=== PATIENT | female | born 1970 | race Caucasian/White ===

== ENCOUNTER 2019-08-27 23:27 | Inpatient (IN) ==
--- OUTSIDE RECORDS SUMMARY | 2019-08-27 23:31 | External Medical Summary | Continuity of Care Document ---
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 Refills: 0 Cetirizine HCl - 10 MG Oral Tablet; TAKE 1 TABLET DAILY. Refills: 0 Clopidogrel Bisulfate 75 MG Oral Tablet; TAKE 1 TABLET DAILY . Refills: 0 NovoLOG FlexPen 100 UNIT/ML Subcutaneous Solution Pen-injector; USE DIRECTED. Refills: 0 Lantus SoloStar 100 UNIT/ML Subcutaneous Solution Pen-injector; INJECT 40 UNIT Twice daily Refills: 0 Lisinopril 20 MG Oral Tablet; TAKE 1 TABLET DAILY DIRECTE D. Refills: 0 Toviaz 8 MG Oral Tablet Extended Release 24 Hour; Take 1 tablet daily YON Boudreaux Start: 13-Dec-2014 Quantity: 30 Refills: 6 Citalopram Hydrobromide 10 MG Oral Tablet; TAKE 1 TABLET MARGARITO LY. Refills: 0 Metoprolol Succinate ER 50 MG Oral Table t Extended Release 24 Hour; TAKE 1 TABLET DAILY. Refills: 0 Promethazine HCl - 25 MG Oral Tablet; TA KE 1 TABLET EVERY 6 HOURS NEEDED FOR NAUSEA. Refills: 0 Procedures Procedures not documented Immunizations Immunizations not documented Social History - Smoking Status Never smoked tobacco Plan of Treatment Planned Observations Planned Goals not documented Results No Known Results Results not documented
--- OUTSIDE RECORDS SUMMARY | 2019-08-27 23:31 | External Medical Summary | Continuity of Care Document ---
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 Refills: 0 Metoprolol Succinate ER 50 MG Oral Table t Extended Release 24 Hour; TAKE 1 TABLET DAILY. Refills: 0 Cetirizine HCl - 10 MG Oral Tablet; TAKE 1 TABLET DAILY. Refills: 0 Lisinopril 20 MG Oral Tablet; TAKE 1 TABLET DAILY DIRECTE D. Refills: 0 Lantus SoloStar 100 UNIT/ML Subcutaneous Solution Pen-injector; INJECT 40 UNIT Twice daily Refills: 0 NovoLOG FlexPen 100 UNIT/ML Subcutaneous Solution Pen-injector; USE DIRECTED. Refills: 0 Clopidogrel Bisulfate 75 MG Oral Tablet; TAKE 1 TABLET DAILY . Refills: 0 Atorvastatin Calcium 40 MG Oral Tablet; TAKE 1 TABLET DAILY. Refills: 0 [place]-3 Fish Oil 1000 MG Oral Capsule; TAKE 2 CAPSULE Daily Refills: 0 Toviaz 8 MG Oral Tablet Extended Release 24 Hour; Take 1 tablet daily YON Boudreaux Start: 13-Dec-2014 Quantity: 30 Refills: 6 Citalopram Hydrobromide 10 MG Oral Tablet; TAKE 1 TABLET MARGARITO LY. Refills: 0 Procedures Procedures not documented Immunizations Immunizations not documented Social History - Smoking Status Never smoked tobacco Plan of Treatment Planned Observations Planned Goals not documented Results No Known Results Results not documented
[2019-08-27] MEDS ORDERED: SODIUM CHLORIDE 0.9% 1000ML 1,000 ML IV ONE (23:54)
[2019-08-27] MEDS ORDERED: PIPERACILLIN/TAZOBACTAM 4.5 GM/120 ML BAG IV ONE (23:56)
[2019-08-27] MEDS ORDERED: PIPERACILL/TAZOBAC CONSULT ACTIVE PRN (23:56)
--- NOTE | 2019-08-28 00:13 | Emergency Department Note ---
History of Present Illness General Chief complaint: Urinary Symptoms Stated complaint: VAGINAL PAIN, REDNESS, PEEING CONSTANTLY History of Present Illness This 49-year-old presents to the ER complaining of altered mental status who had a stroke in 2014 and the is the primary caregiver Location: Generalized Quality: Confused Severity: Moderate Duration: Today Timing: This afternoon Context: Has not was concerned and brought her in Modifying factors: better with nothing; worse with nothing states that she has been urinating more and has redness to her vaginal region. He called the family doctor and was advised to put cream on that region. She became more confused and brought her here. Patient had a stroke in 2014 and has left-sided weakness. He states she is normally not confused. No recent antibiotics. She is diabetic. He denies fevers, vomiting, diarrhea, flulike illness. Home Medications Home Medications Medication Instructions Recorded Confirmed Type aspirin 81 mg PO DAILY 08/28/19 08/28/19 History atorvastatin 40 mg PO DAILY 08/28/19 08/28/19 History clopidogrel [Plavix] 75 mg PO DAILY 08/28/19 08/28/19 History fesoterodine [Toviaz] 8 mg PO DAILY 08/28/19 08/28/19 History insulin aspart U-100 [Novolog 0 unit SUBCUT ACHS 08/28/19 08/28/19 History Flexpen U-100 Insulin] insulin glargine [Lantus Solostar 40 unit SUBCUT BID 08/28/19 08/28/19 History U-100 Insulin] lisinopril 0 mg PO DAILY 08/28/19 08/28/19 History metformin 500 mg PO BID 08/28/19 08/28/19 History metoprolol succinate 50 mg PO DAILY 08/28/19 08/28/19 History pediatric multivitamin 2 tab PO DAILY 08/28/19 08/28/19 History Allergies Allergy/AdvReac Type Severity Reaction Status Date / Time No Known Allergies Allergy Verified 08/28/19 00:23 Past Med/Surg History Medical History 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) Surgical History History of cholecystectomy Social History Preferred Language: Panamanian Feels Safe at Home: Yes Smoking Status: Never smoker Review of Systems Unable to obtain secondary to altered mental status Physical Exam Vital Signs Vital Signs - 24 hr 08/27/19 23:31 08/28/19 01:30 08/28/19 01:32 Temperature 37.4 C 37.4 C Temperature Source Oral Rectal Pulse Rate 102 H Pulse Rate [Right] 86 Pulse Rate from SpO2 Sensor 99 H Pulse Rhythm [Right] Regular Pulse Strength [Right] Normal Respiratory Rate 20 16 Respiratory Effort / Characteristics Non-Labored Spontaneous Non-Labored Spontaneous Respiratory Depth Normal Normal Respiratory Pattern Regular Blood Pressure 108/55 L 113/88 Blood Pressure [Right Arm] 113/77 Blood Pressure Mean 72 103 Blood Pressure Mean [Right Arm] 89 Blood Pressure Position Sitting Blood Pressure Position [Right Arm] Lying Pulse Oximetry 99 96 96 Oxygen Delivery Method Room Air Room Air Sepsis Recent Fever Within 48 Hours Yes Sepsis Action Taken by Nursing No Action Required 08/28/19 01:36 08/28/19 03:56 Temperature Temperature Source Pulse Rate 96 H Pulse Rate [Right] Pulse Rate from SpO2 Sensor 82 Pulse Rhythm [Right] Pulse Strength [Right] Respiratory Rate 20 14 Respiratory Effort / Characteristics Respiratory Depth Respiratory Pattern Blood Pressure 100/65 Blood Pressure [Right Arm] Blood Pressure Mean 67 Blood Pressure Mean [Right Arm] Blood Pressure Position Blood Pressure Position [Right Arm] Pulse Oximetry 100 96 Oxygen Delivery Method Room Air Sepsis Recent Fever Within 48 Hours Sepsis Action Taken by Nursing VITALS: Vitals are noted on the nurse's note and reviewed by myself. Vital signs mildly tachycardic. GENERAL: White female confused appearing unable to follow commands with left-si ded weakness unchanged per family SKIN: Vaginal and perineum area and gluteal area erythematous and tender to palpation without palpable abscess, no crepitus, the rest of the skin was without rashes, erythema, edema, or bruising. There is no tenting of the skin. Capillary reflex less than 2 seconds. HEAD: Normocephalic atraumatic. EARS: External auditory canals clear, tympanic membranes pearly allen without erythema or effusion bilaterally. EYES: Pupils equal round and reactive to light and accommodation. Conjunctivae without injection, sclerae without icterus. Extraocular movements intact. NOSE: Patent, turbinates without inflammation or discharge. MOUTH: Mucous membranes mildly dry. Pharynx without erythema or exudate. Uvula midline. Airway patent. Tongue does not deviate. NECK: Supple without nuchal rigidity. No lymphadenopathy. No thyromegaly. Cervical spine is nontender. No JVD. HEART: Regular rate and rhythm LUNGS: Clear to auscultation bilaterally without wheezes, rales or rhonchi. No retractions or accessory muscle use. ABDOMEN: Positive bowel sounds x 4. Normal tympanic percussion. Soft, tender to palpation lower abdomen, without masses or organomegaly. Avery sign negative. No guarding or rebound tenderness. No CVA tenderness MUSCULOSKELETAL: No muscle atrophy, erythema, or edema noted. NEURO: Patient was alert but not oriented to person place and time. Unchanged left-sided weakness. Patient is unable to follow commands. She is speaking but not making sense. Course Administered Medications Sodium Chloride (Nss 1000ml) 1,000 mls @ 125 mls/hr IV .Q8H MART Stop: 09/27/19 03:29 Last Admin: 08/28/19 03:58 Dose: 125 mls/hr Documented by: [id number] Discontinued Medications Sodium Chloride (Nss 1000ml) 1,000 mls @ 999 mls/hr IV .Q1H1M ONE Stop: 08/28/19 00:54 Last Infusion: 08/28/19 02:10 Dose: 0 mls/hr Documented by: [id number] Admin: 08/28/19 01:07 Dose: 999 mls/hr Documented by: [id number] Piperacillin Sod/Tazobactam Sod (Zosyn) 4.5 gm in 120 mls @ 240 mls/hr IV NOW ONE Stop: 08/28/19 00:25 Last Infusion: 08/28/19 01:40 Dose: 0 mls/hr Documented by: [id number] Admin: 08/28/19 01:07 Dose: 240 mls/hr Documented by: [id number] Magnesium Sulfate/Dextrose (Magnesium Sulfate / D5w) 1 gm in 100 mls @ 100 mls/hr IV Q1H MART Stop: 08/28/19 02:59 Last Infusion: 08/28/19 03:57 Dose: 0 mls/hr Documented by: [id number] Admin: 08/28/19 02:55 Dose: 100 mls/hr Documented by: [id number] Infusion: 05/15/20 02:55 Dose: 0 mls/hr Documented by: [id number] Admin: 08/28/19 01:40 Dose: 100 mls/hr Documented by: [id number] Nystatin (Nystatin) 1 appln EXT NOW STA Stop: 08/28/19 01:27 Last Admin: 08/28/19 01:40 Dose: 1 appln Documented by: [id number] Medical Decision Making Medical Records Attestation: I reviewed the patient's medical records. Home Medications Current Medication List: was personally reviewed by me Laboratory Data Attestation: I reviewed the patient's lab results. Result diagrams: 08/28/19 00:00 08/28/19 00:00 Lab Results 08/28/19 08/28/19 08/28/19 Range/Units 00:00 00:00 00:00 WBC 19.20 H (4.8-10.8) K/uL RBC 5.00 (4.2-5.4) M/uL Hgb 15.8 (12.0-16.0) g/dL POC Hgb (12.0-16.0) g/dl Hct 44.3 (37-47) % POC Hct (37-47) % MCV 88.6 (80-100) fL MCH 31.6 (25-34) pg MCHC 35.7 (32-36) g/dL RDW Std Deviation 41.3 (36.4-46.3) fL RDW Coeff of Travis 12.9 (11.5-14.5) % Plt Count 363 (130-400) K/uL MPV 9.7 (7.4-10.4) fL Immature Gran % (Auto) 0.3 % Neut % (Auto) 63.3 % Lymph % (Auto) 28.3 % [place] % (Auto) 7.2 % Eos % (Auto) 0.6 % Baso % (Auto) 0.3 % Immature Gran # (Auto) 0.06 H (0.00-0.02) K/uL Neut # (Auto) 12.16 H (1.4-6.5) K/uL Lymph # (Auto) 5.43 H (1.2-3.4) K/uL [place] # (Auto) 1.38 H (0.11-0.59) K/uL Eos # (Auto) 0.11 (0-0.5) K/uL Baso # (Auto) 0.06 (0-0.2) K/uL Tear Drop Cells 1+ PT 10.8 (9.0-12.0) Seconds INR 1.0 (0.9-1.1) APTT 26.5 (21.0-31.0) Seconds PTT Ratio 0.9 POC Sodium (135-144) mmol/L Sodium 136 (136-145) mmol/L POC Potassium (3.3-5.0) mmol/L Potassium 4.3 (3.5-5.1) mmol/L POC Chloride (101-112) mmol/L Chloride 104 (98-107) mmol/L Carbon Dioxide 21 (21-32) mmol/L POC Total CO2 (24-31) mmol/L Anion Gap 11.0 (3-11) POC Anion Gap (16-25) mmol/L POC BUN (7-18) mg/dl BUN 9 (7-18) mg/dl Creatinine 0.80 (0.6-1.2) mg/dl POC Creatinine (0.6-1.3) mg/dl Est Cr Clr Drug Dosing 78.0 ml/min Est GFR ( Amer) 100.3 Est GFR (Non-Af Amer) 86.6 BUN/Creatinine Ratio 10.8 (10-20) Glucose 250 H (70-99) mg/dl POC Glucose (other) (70-99) mg/dl POC Lactic Acid Baljeet (0.90-1.70) mmol/L Lactate (0.4-2.0) mmol/L Calcium 9.8 (8.5-10.1) mg/dl POC Ioniz Calcium Sesar (1.12-1.32) mmol/l Magnesium 1.6 L (1.8-2.4) mg/dl Total Bilirubin 0.5 (0.2-1) mg/dl AST 10 L (15-37) U/L ALT 17 (12-78) U/L Alkaline Phosphatase 149 H (45-117) U/L Total Creatine Kinase 44 (26-192) U/L Troponin I < 0.015 (0-0.045) ng/ml Total Protein 8.8 H (6.4-8.2) gm/dl Albumin 3.9 (3.4-5.0) gm/dl Globulin 4.9 H (2.5-4.0) gm/dl Albumin/Globulin Ratio 0.8 L (0.9-2) TSH 0.843 (0.300-4.500) uIu/ml Urine Color Urine Appearance (Clear) Urine pH (4.5-7.5) Ur Specific [place] (1.000-1.030) Urine Protein (Negative) Urine Glucose (UA) (Negative) Urine Ketones (Negative) Urine Blood (Negative) Urine Nitrite (Negative) Urine Bilirubin (Negative) Urine Urobilinogen (Negative) Ur Leukocyte Esterase (Negative) Urine WBC (Auto) (0-5) /hpf Urine RBC (Auto) (0-4) /hpf U Hyaline Cast (Auto) (0-5) /lpf U Epithel Cells (Auto) (0-5) /lpf Urine Bacteria (Auto) (Negative) Ur Renal Epithelial Cell (0-5) /lpf 08/28/19 08/28/19 08/28/19 Range/Units 00:06 00:07 00:27 WBC (4.8-10.8) K/uL RBC (4.2-5.4) M/uL Hgb (12.0-16.0) g/dL POC Hgb 16.0 (12.0-16.0) g/dl Hct (37-47) % POC Hct 47 (37-47) % MCV (80-100) fL MCH (25-34) pg MCHC (32-36) g/dL RDW Std Deviation (36.4-46.3) fL RDW Coeff of Travis (11.5-14.5) % Plt Count (130-400) K/uL MPV (7.4-10.4) fL Immature Gran % (Auto) % Neut % (Auto) % Lymph % (Auto) % [place] % (Auto) % Eos % (Auto) % Baso % (Auto) % Immature Gran # (Auto) (0.00-0.02) K/uL Neut # (Auto) (1.4-6.5) K/uL Lymph # (Auto) (1.2-3.4) K/uL [place] # (Auto) (0.11-0.59) K/uL Eos # (Auto) (0-0.5) K/uL Baso # (Auto) (0-0.2) K/uL Tear Drop Cells PT (9.0-12.0) Seconds INR (0.9-1.1) APTT (21.0-31.0) Seconds PTT Ratio POC Sodium 136 (135-144) mmol/L Sodium (136-145) mmol/L POC Potassium 4.1 (3.3-5.0) mmol/L Potassium (3.5-5.1) mmol/L POC Chloride 101 (101-112) mmol/L Chloride (98-107) mmol/L Carbon Dioxide (21-32) mmol/L POC Total CO2 24 (24-31) mmol/L Anion Gap (3-11) POC Anion Gap 17.0 (16-25) mmol/L POC BUN 9 (7-18) mg/dl BUN (7-18) mg/dl Creatinine (0.6-1.2) mg/dl POC Creatinine 0.5 L (0.6-1.3) mg/dl Est Cr Clr Drug Dosing ml/min Est GFR ( Amer) Est GFR (Non-Af Amer) BUN/Creatinine Ratio (10-20) Glucose (70-99) mg/dl POC Glucose (other) 262 H (70-99) mg/dl POC Lactic Acid Baljeet 2.02 H (0.90-1.70) mmol/L Lactate (0.4-2.0) mmol/L Calcium (8.5-10.1) mg/dl POC Ioniz Calcium Sesar 1.29 (1.12-1.32) mmol/l Magnesium (1.8-2.4) mg/dl Total Bilirubin (0.2-1) mg/dl AST (15-37) U/L ALT (12-78) U/L Alkaline Phosphatase (45-117) U/L Total Creatine Kinase (26-192) U/L Troponin I (0-0.045) ng/ml Total Protein (6.4-8.2) gm/dl Albumin (3.4-5.0) gm/dl Globulin (2.5-4.0) gm/dl Albumin/Globulin Ratio (0.9-2) TSH (0.300-4.500) uIu/ml Urine Color Dark Yellow Urine Appearance Cloudy A (Clear) Urine pH 5.0 (4.5-7.5) Ur Specific [place] 1.041 H (1.000-1.030) Urine Protein 1+ H (Negative) Urine Glucose (UA) 3+ H (Negative) Urine Ketones Trace H (Negative) Urine Blood 1+ H (Negative) Urine Nitrite Negative (Negative) Urine Bilirubin Negative (Negative) Urine Urobilinogen Negative (Negative) Ur Leukocyte Esterase Negative (Negative) Urine WBC (Auto) 10-30 H (0-5) /hpf Urine RBC (Auto) 5-10 H (0-4) /hpf U Hyaline Cast (Auto) 1-5 (0-5) /lpf U Epithel Cells (Auto) >30 H (0-5) /lpf Urine Bacteria (Auto) 1+ H (Negative) Ur Renal Epithelial Cell 0-5 (0-5) /lpf 08/28/19 Range/Units 02:21 WBC (4.8-10.8) K/uL RBC (4.2-5.4) M/uL Hgb (12.0-16.0) g/dL POC Hgb (12.0-16.0) g/dl Hct (37-47) % POC Hct (37-47) % MCV (80-100) fL MCH (25-34) pg MCHC (32-36) g/dL RDW Std Deviation (36.4-46.3) fL RDW Coeff of Travis (11.5-14.5) % Plt Count (130-400) K/uL MPV (7.4-10.4) fL Immature Gran % (Auto) % Neut % (Auto) % Lymph % (Auto) % [place] % (Auto) % Eos % (Auto) % Baso % (Auto) % Immature Gran # (Auto) (0.00-0.02) K/uL Neut # (Auto) (1.4-6.5) K/uL Lymph # (Auto) (1.2-3.4) K/uL [place] # (Auto) (0.11-0.59) K/uL Eos # (Auto) (0-0.5) K/uL Baso # (Auto) (0-0.2) K/uL Tear Drop Cells PT (9.0-12.0) Seconds INR (0.9-1.1) APTT (21.0-31.0) Seconds PTT Ratio POC Sodium (135-144) mmol/L Sodium (136-145) mmol/L POC Potassium (3.3-5.0) mmol/L Potassium (3.5-5.1) mmol/L POC Chloride (101-112) mmol/L Chloride (98-107) mmol/L Carbon Dioxide (21-32) mmol/L POC Total CO2 (24-31) mmol/L Anion Gap (3-11) POC Anion Gap (16-25) mmol/L POC BUN (7-18) mg/dl BUN (7-18) mg/dl Creatinine (0.6-1.2) mg/dl POC Creatinine (0.6-1.3) mg/dl Est Cr Clr Drug Dosing ml/min Est GFR ( Amer) Est GFR (Non-Af Amer) BUN/Creatinine Ratio (10-20) Glucose (70-99) mg/dl POC Glucose (other) (70-99) mg/dl POC Lactic Acid Baljeet (0.90-1.70) mmol/L Lactate 1.6 (0.4-2.0) mmol/L Calcium (8.5-10.1) mg/dl POC Ioniz Calcium Sesar (1.12-1.32) mmol/l Magnesium (1.8-2.4) mg/dl Total Bilirubin (0.2-1) mg/dl AST (15-37) U/L ALT (12-78) U/L Alkaline Phosphatase (45-117) U/L Total Creatine Kinase (26-192) U/L Troponin I (0-0.045) ng/ml Total Protein (6.4-8.2) gm/dl Albumin (3.4-5.0) gm/dl Globulin (2.5-4.0) gm/dl Albumin/Globulin Ratio (0.9-2) TSH (0.300-4.500) uIu/ml Urine Color Urine Appearance (Clear) Urine pH (4.5-7.5) Ur Specific [place] (1.000-1.030) Urine Protein (Negative) Urine Glucose (UA) (Negative) Urine Ketones (Negative) Urine Blood (Negative) Urine Nitrite (Negative) Urine Bilirubin (Negative) Urine Urobilinogen (Negative) Ur Leukocyte Esterase (Negative) Urine WBC (Auto) (0-5) /hpf Urine RBC (Auto) (0-4) /hpf U Hyaline Cast (Auto) (0-5) /lpf U Epithel Cells (Auto) (0-5) /lpf Urine Bacteria (Auto) (Negative) Ur Renal Epithelial Cell (0-5) /lpf Imaging Data Attestation: I personally reviewed and interpreted this imaging study as follows: Blood Pressure Blood Pressure Findings: Normal blood pressure MDM Narrative Prior records/ancillary studies reviewed and summarized above. Nursing notes reviewed. Additional history obtained from family. The patient's history was concerning for altered mental status. Differential diagnosis: Etiologies such as metabolic, infection, hypoglycemia, electrolyte abnormalities, cardiac sources, intracerebral event, toxicologic, neurologic, as well as others were entertained. Physical examination: As above. ER treatment provided: IV Lock IV fluids, Zosyn An order was placed for continuous cardiac monitoring. The monitor shows a rate of 60-1 10 with a normal sinus rhythm. On reassessment the patients mental status improved. Diagnostics interpretation by me: ECG: Ordered for altered mental status EKG: Normal sinus, T wave inversion in lead III and aVF, rate of 109, Q wave in lead III, impression sinus tachycardia with T wave changes in inferior leads interpreted by myself. EKG compared to prior EKG from 2015 with no changes noted. I think arrhythmia is unlikely. EKG shows normal sinus rhythm with no interval abnormalities such as QT prolongation or WPW. There are no findings to suggest Brugada syndrome. Cardiac monitoring in the emergency department reveals no tachycardic or bradycardic dysrhythmia. Hypertrophic cardiomyopathy was consider ed but there are no clear historical elements pointing toward this. EKG is not suggestive. The QRS voltage is not extremely large and there are no suggestive Q waves. The labs revealed leukocytosis, urine concerning for infection and sent for culture Blood cultures pending Elevated lactic Imaging studies: CT HEAD: Study is degraded by motion. No gross intracranial hemorrhage. Old right MCA territory infarct. Radiologist: Dwaine Shaffer M.D. Chest x-ray with no acute consolidation, pneumothorax or free air per my interpretation CT ABDOMEN & PELVIS Without Contrast: No evidence of colitis or bowel obstruction. Appendix not identified. Duodenal diverticulum. Cholecystectomy. Bulbous left adrenal gland. No renal calculi or obstructive changes. Radiologist: Dwaine Shaffer M.D. Given the above diagnostic work-up and treatment, this episode appears to be consistent with perineum infection, UTI and altered mental status. Further treatment will be required. Patient is given antibiotics, IV fluids and magnesium. Medicine was consulted. She will be admitted. Family is agreeable. Her mentation was improving after being treated as above. Consultation: A consultation was placed with Dr. Xiong, hospitalist. The case was discussed and diagnostics were reviewed. The patient was evaluated in the ER for further treatment. The chart was completed utilizing [employer] Speech voice recognition software. Grammatical errors, random word insertions, pronoun errors, and incomplete sentences are an occassional consequence of this system due to software limitations, ambient noise, and hardware issues. Any formal questions or concerns about the content, text, or information contained within the body of this dictation should be directly addressed to the physician criminal legal assistant for clarification. Impression & Plan Sepsis, UTI (urinary tract infection), AMS (altered mental status), Cellulitis of perineum, Candidiasis of genitalia in female Discharge Plan Visit Data Chief Complaint: Urinary Symptoms Stated Complaint: VAGINAL PAIN, REDNESS, PEEING CONSTANTLY ED Provider: Edita Epstein ED Midlevel Provider: Zeenat Zamorano Discharge Problem: Sepsis, UTI (urinary tract infection), AMS (altered mental status), Cellulitis of perineum, Candidiasis of genitalia in female Patient Disposition: Admitted As Inpatient Condition: Fair Forms Stand Alone Forms: [facility] Prescriptions Prescriptions: No Action aspirin 81 mg Tablet,Delayed Release (Dr/Ec) 81 mg PO DAILY RF: 0 atorvastatin 40 mg Tablet 40 mg PO DAILY RF: 0 clopidogrel [Plavix] 75 mg Tablet 75 mg PO DAILY RF: 0 insulin aspart U-100 [Novolog Flexpen U-100 Insulin] 100 unit/mL (3 mL) Insulin Pen 0 unit SUBCUT ACHS RF: 0 Lantus Solostar U-100 Insulin 100 unit/mL (3 mL) Insulin Pen 40 unit SUBCUT BID RF: 0 lisinopril 20 mg Tablet 0 mg PO DAILY RF: 0 metformin 500 mg Tablet 500 mg PO BID RF: 0 metoprolol succinate 50 mg Tablet Extended Release 24 Hr 50 mg PO DAILY RF: 0 pediatric multivitamin Tablet,Chewable 2 tab PO DAILY RF: 0 Toviaz 8 mg Tablet Extended Release 24 Hr 8 mg PO DAILY RF: 0 Referrals Referrals: Paty Buenrostro CRNP [Primary Care Provider] - Discharge Problem: Sepsis Qualifiers: Sepsis type: sepsis due to unspecified organism Sepsis acute organ dysfunction status: unspecified Qualified Code(s): A41.9 - Sepsis, unspecified organism
[2019-08-28 00:18] LABS: iSTAT Creatinine 0.5 mg/dl (0.6-1.3); iSTAT Ionized Calcium 1.29 mmol/l (1.12-1.32); iSTAT Potassium 4.1 mmol/L (3.3-5.0)
[2019-08-28 00:32] LABS: Hematocrit (blood only) 44.3 % (37-47); Hemoglobin 15.8 g/dL (12.0-16.0); Mean Corpuscular Hemoglobin 31.6 pg (25-34); Mean Corpuscular Hgb Conc 35.7 g/dL (32-36); Mean Corpuscular Volume 88.6 fL (80-100); Mean Platelet Volume 9.7 fL (7.4-10.4); Platelet Count 363 K/uL (130-400); RDW Coefficient of Variation 12.9 % (11.5-14.5); RDW Standard Deviation 41.3 fL (36.4-46.3)
[2019-08-28 00:39] LABS: Appearance Urine Cloudy (Clear); Bacteria Urine Automated 1+ (Negative); Bilirubin Urine Negative (Negative); Blood Urine 1+ (Negative); Color Urine Dark Yellow; Epithelial Cell Urine Auto >30 /lpf (0-5); Glucose Urine UA 3+ (Negative); Ketones Urine Trace (Negative); Leukocyte Esterase Urine Negative (Negative); Nitrite Urine Negative (Negative); Protein Urine 1+ (Negative); Specific Gravity Urine 1.041 (1.000-1.030); Urobilinogen Urine Negative (Negative)
[2019-08-28 00:50] LABS: Partial Thromboplastin Ratio 0.9; Partial Thromboplastin Time 26.5 Seconds (21.0-31.0); Prothrombin Time 10.8 Seconds (9.0-12.0)
[2019-08-28 00:59] LABS: Alanine Aminotransferase 17 U/L (12-78); Albumin Level 3.9 gm/dl (3.4-5.0); Aspartate Aminotransferase 10 U/L (15-37); BUN Creatinine Ratio 10.8 (10-20); Blood Urea Nitrogen 9 mg/dl (7-18); Calcium 9.8 mg/dl (8.5-10.1); Carbon Dioxide 21 mmol/L (21-32); Chloride 104 mmol/L (98-107); Est GFR (African American) 100.3; Est GFR (Non-African American) 86.6; Glucose 250 mg/dl (70-99); Magnesium 1.6 mg/dl (1.8-2.4); Potassium 4.3 mmol/L (3.5-5.1); Sodium 136 mmol/L (136-145)
[2019-08-28 01:00] LABS: Renal Epithelial Cells Urine 0-5 /lpf (0-5)
[2019-08-28 01:06] LABS: Albumin Globulin Ratio 0.8 (0.9-2); Alkaline Phosphatase 149 U/L (45-117); Bilirubin,Total 0.5 mg/dl (0.2-1); Creatine Kinase 44 U/L (26-192); Globulin 4.9 gm/dl (2.5-4.0); Thyroid Stimulating Hormone 0.843 uIu/ml (0.300-4.500); Total Protein 8.8 gm/dl (6.4-8.2); Troponin I < 0.015 ng/ml (0-0.045)
[2019-08-28 01:18] LABS: Basophils # (auto) 0.06 K/uL (0-0.2); Basophils % (auto) 0.3 %; Eosinophils # (auto) 0.11 K/uL (0-0.5); Eosinophils % (auto) 0.6 %; Immature Granulocytes # (auto) 0.06 K/uL (0.00-0.02); Immature Granulocytes % (auto) 0.3 %; Lymphocytes # (auto) 5.43 K/uL (1.2-3.4); Lymphocytes % (auto) 28.3 %; Monocytes # (auto) 1.38 K/uL (0.11-0.59); Monocytes % (auto) 7.2 %; Neutrophils # (auto) 12.16 K/uL (1.4-6.5); Neutrophils % (auto) 63.3 %; Tear Drop Cells 1+
[2019-08-28] MEDS ORDERED: NYSTATIN CR 15 GM TUBE EXT STA (01:26)
[2019-08-28] MEDS: MAGNESIUM SULFATE / D5W 1 GM/100 ML BAG IV SCH ×2 (01:40→02:55)
--- NOTE | 2019-08-28 02:09 | History & Physical Report ---
Date of Service August 28, 2019 Assessment & Plan (1) Right middle cerebral artery stroke: 49-year-old with a history of MCA stroke admitted for sepsis secondary to UTI and cellulitis of perineum. 1. Sepsis secondary to UTI/cystitis White blood cell count elevated to 19.2 with a lactic acid of 2.02 Initially hypotensive and tachycardic which resolved after patient received 1 L normal saline bolus and Zosyn initiated. UA significant for cloudy urine with increased specific gravity, presence of protein, 3+ glucose, trace ketones, 1+ blood. Urine negative for nitrites and leukocyte Estrace. Positive for 10-30 white blood cells and 5-10 red blood cells as well as epithelial cells and 1+ bacteria. -Patient lives at home and has not been in the hospital recently, is low risk for hospital acquired infections or MRSA. Maintenance fluids running with IV cefazolin to treat cellulitis Blood cultures and urine culture pending 2. Cellulitis of perineum Nystatin cream ordered for topical application Patient is incontinent, may help to cath or do frequent straight caths until patient is more aware of her surroundings to reduce irritation from urine. 3. Hypo-magnesiumia -Initially 1.8, repleted with 2 bags in the emergency department. Repeat mag level in the a.m. 4. History of right MCA stroke Continued aspirin and Plavix from home regimen Continue home metoprolol 50 daily and atorvastatin 40 daily. 5. Diabetes type 2 40 units subcu insulin glargine twice daily, 500 metformin twice daily Sliding scale insulin with mealtime DVT ppx: lovenox FEN/GI: normal diet, IV NS maintenance Code status: FUll Code Dispo: Med surg with tele (2) AMS (altered mental status): (3) UTI (urinary tract infection): (4) Sepsis: (5) Cellulitis of perineum: History of Present Illness 49-year-old female with a past medical history of a right MCA stroke 5 years ago presenting to the emergency department today for altered mental status, confusion, perineal itching. Secondary to the stroke patient is unable to move the entire left side of her body and has diminished conversation capabilities. History mostly taken from who was in the room. Per patient started having genital itching and complains of needing to urinate more frequently approximately 3 days ago. After talking to a telemetry nurse and trying Monistat cream he noticed today that the itching had not improved and she was increasingly scratching her genital region complaining of both need to frequently urinate and pain with urination. He states she has also been more somnolent and tired over the last day or so and has not been acting as her usual self. She has also been increasingly forgetful and has had trouble remembering longer term details. says otherwise she has been eating and drinking appropriately and no other behaviors have changed but something seems off about her. Patient lives at home with her and is taken care of by him as well as her son and [id number]. ED course: Patient was tachycardic and hypotensive upon arrival and received 1 L normal saline fluid bolus. Initial lab work revealed hypo-magnesiumia and she received 1 of 2 bags of magnesium for repletion in the emergency department. CT scan of head noncontrast showed no new cerebral damage or acute stroke. CT abdomen pelvis without contrast did not show any diverticulitis, abscess, small bowel obstruction. Primary Care Provider: YON Singh Allergies Allergy/AdvReac Type Severity Reaction Status Date / Time No Known Allergies Allergy Verified 08/28/19 00:23 Home Medications Home Medications Medication Instructions Recorded Confirmed Type aspirin 81 mg PO DAILY 08/28/19 08/28/19 History atorvastatin 40 mg PO DAILY 08/28/19 08/28/19 History clopidogrel [Plavix] 75 mg PO DAILY 08/28/19 08/28/19 History fesoterodine [Toviaz] 8 mg PO DAILY 08/28/19 08/28/19 History insulin aspart U-100 [Novolog 0 unit SUBCUT ACHS 08/28/19 08/28/19 History Flexpen U-100 Insulin] insulin glargine [Lantus Solostar 40 unit SUBCUT BID 08/28/19 08/28/19 History U-100 Insulin] lisinopril 0 mg PO DAILY 08/28/19 08/28/19 History metformin 500 mg PO BID 08/28/19 08/28/19 History metoprolol succinate 50 mg PO DAILY 08/28/19 08/28/19 History pediatric multivitamin 2 tab PO DAILY 08/28/19 08/28/19 History Past Med/Surg History Medical History 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) Surgical History History of cholecystectomy Social History Preferred Language: Bengali Beliefs That Will Affect Care: None Current Living Situation: Spouse Feels Safe at Home: Yes Safety Concerns: Feels Safe At This Time Smoking Status: Unknown if ever smoked Hx Alcohol Use: No Hx Substance Use: No Review of Systems Review of Systems: Unobtainable due to cognitive status Physical Exam Constitutional: + thin, + altered mental status, + behavioral limitations and + physical limitations Eyes: PERRL, conjunctivae normal, anicteric sclerae Respiratory: normal respiratory effort, lungs clear to auscultation no respiratory distress and does not use accessory muscles Auscultation: no crackles, no rhonchi and no wheezes Cardiovascular: Rate/Rhythm: regular rate and + tachycardic Heart Sounds: no gallop, no murmur and no cardiac rub Extremities: no calf tenderness and no pedal edema Gastrointestinal (Abdomen): Soft, nondistended, normal bowel sounds, tenderness to suprapubic region but otherwise nontender. Results & Data Results & Data ([facility]) Vital Signs (Past 12 Hours) Vital Signs Temp Pulse Pulse Resp BP BP Pulse Ox 08/28/19 01:36 96 H 20 100 08/28/19 01:32 37.4 C 86 16 113/77 96 08/27/19 23:31 37.4 C 102 H 20 108/55 L 99 Laboratory Results WBC 19.20 K/uL (4.8-10.8) H 08/28/19 00:00 RBC 5.00 M/uL (4.2-5.4) 08/28/19 00:00 Hgb 15.8 g/dL (12.0-16.0) 08/28/19 00:00 POC Hgb 16.0 g/dl (12.0-16.0) 08/28/19 00:06 Hct 44.3 % (37-47) 08/28/19 00:00 POC Hct 47 % (37-47) 08/28/19 00:06 MCV 88.6 fL (80-100) 08/28/19 00:00 MCH 31.6 pg (25-34) 08/28/19 00:00 MCHC 35.7 g/dL (32-36) 08/28/19 00:00 RDW Std Deviation 41.3 fL (36.4-46.3) 08/28/19 00:00 RDW Coeff of Travis 12.9 % (11.5-14.5) 08/28/19 00:00 Plt Count 363 K/uL (130-400) 08/28/19 00:00 MPV 9.7 fL (7.4-10.4) 08/28/19 00:00 Immature Gran % (Auto) 0.3 % 08/28/19 00:00 Neut % (Auto) 63.3 % 08/28/19 00:00 Lymph % (Auto) 28.3 % 08/28/19 00:00 [place] % (Auto) 7.2 % 08/28/19 00:00 Eos % (Auto) 0.6 % 08/28/19 00:00 Baso % (Auto) 0.3 % 08/28/19 00:00 Immature Gran # (Auto) 0.06 K/uL (0.00-0.02) H 08/28/19 00:00 Neut # (Auto) 12.16 K/uL (1.4-6.5) H 08/28/19 00:00 Lymph # (Auto) 5.43 K/uL (1.2-3.4) H 08/28/19 00:00 [place] # (Auto) 1.38 K/uL (0.11-0.59) H 08/28/19 00:00 Eos # (Auto) 0.11 K/uL (0-0.5) 08/28/19 00:00 Baso # (Auto) 0.06 K/uL (0-0.2) 08/28/19 00:00 Tear Drop Cells 1+ 08/28/19 00:00 PT 10.8 Seconds (9.0-12.0) 08/28/19 00:00 INR 1.0 (0.9-1.1) 08/28/19 00:00 APTT 26.5 Seconds (21.0-31.0) 08/28/19 00:00 PTT Ratio 0.9 08/28/19 00:00 POC Sodium 136 mmol/L (135-144) 08/28/19 00:06 Sodium 136 mmol/L (136-145) 08/28/19 00:00 POC Potassium 4.1 mmol/L (3.3-5.0) 08/28/19 00:06 Potassium 4.3 mmol/L (3.5-5.1) 08/28/19 00:00 POC Chloride 101 mmol/L (101-112) 08/28/19 00:06 Chloride 104 mmol/L (98-107) 08/28/19 00:00 Carbon Dioxide 21 mmol/L (21-32) 08/28/19 00:00 POC Total CO2 24 mmol/L (24-31) 08/28/19 00:06 Anion Gap 11.0 (3-11) 08/28/19 00:00 POC Anion Gap 17.0 mmol/L (16-25) 08/28/19 00:06 POC BUN 9 mg/dl (7-18) 08/28/19 00:06 BUN 9 mg/dl (7-18) 08/28/19 00:00 Creatinine 0.80 mg/dl (0.6-1.2) 08/28/19 00:00 POC Creatinine 0.5 mg/dl (0.6-1.3) L 08/28/19 00:06 Est Cr Clr Drug Dosing 78.0 ml/min 08/28/19 00:00 Est GFR ( Amer) 100.3 08/28/19 00:00 Est GFR (Non-Af Amer) 86.6 08/28/19 00:00 BUN/Creatinine Ratio 10.8 (10-20) 08/28/19 00:00 Glucose 250 mg/dl (70-99) H 08/28/19 00:00 POC Glucose (other) 262 mg/dl (70-99) H 08/28/19 00:06 POC Lactic Acid Baljeet 2.02 mmol/L (0.90-1.70) H 08/28/19 00:27 Lactate 1.6 mmol/L (0.4-2.0) 08/28/19 02:21 Calcium 9.8 mg/dl (8.5-10.1) 08/28/19 00:00 POC Ioniz Calcium Sesar 1.29 mmol/l (1.12-1.32) 08/28/19 00:06 Magnesium 1.6 mg/dl (1.8-2.4) L 08/28/19 00:00 Total Bilirubin 0.5 mg/dl (0.2-1) 08/28/19 00:00 AST 10 U/L (15-37) L 08/28/19 00:00 ALT 17 U/L (12-78) 08/28/19 00:00 Alkaline Phosphatase 149 U/L (45-117) H 08/28/19 00:00 Total Creatine Kinase 44 U/L (26-192) 08/28/19 00:00 Troponin I < 0.015 ng/ml (0-0.045) 08/28/19 00:00 Total Protein 8.8 gm/dl (6.4-8.2) H 08/28/19 00:00 Albumin 3.9 gm/dl (3.4-5.0) 08/28/19 00:00 Globulin 4.9 gm/dl (2.5-4.0) H 08/28/19 00:00 Albumin/Globulin Ratio 0.8 (0.9-2) L 08/28/19 00:00 TSH 0.843 uIu/ml (0.300-4.500) 08/28/19 00:00 Urine Color Dark Yellow 08/28/19 00:07 Urine Appearance Cloudy (Clear) A 08/28/19 00:07 Urine pH 5.0 (4.5-7.5) 08/28/19 00:07 Ur Specific [place] 1.041 (1.000-1.030) H 08/28/19 00:07 Urine Protein 1+ (Negative) H 08/28/19 00:07 Urine Glucose (UA) 3+ (Negative) H 08/28/19 00:07 Urine Ketones Trace (Negative) H 08/28/19 00:07 Urine Blood 1+ (Negative) H 08/28/19 00:07 Urine Nitrite Negative (Negative) 08/28/19 00:07 Urine Bilirubin Negative (Negative) 08/28/19 00:07 Urine Urobilinogen Negative (Negative) 08/28/19 00:07 Ur Leukocyte Esterase Negative (Negative) 08/28/19 00:07 Urine WBC (Auto) 10-30 /hpf (0-5) H 08/28/19 00:07 Urine RBC (Auto) 5-10 /hpf (0-4) H 08/28/19 00:07 U Hyaline Cast (Auto) 1-5 /lpf (0-5) 08/28/19 00:07 U Epithel Cells (Auto) >30 /lpf (0-5) H 08/28/19 00:07 Urine Bacteria (Auto) 1+ (Negative) H 08/28/19 00:07 Ur Renal Epithelial Cell 0-5 /lpf (0-5) 08/28/19 00:07 Supervising Physician Co-Signing Physician Notes Attending addendum: I have physically seen this patient, have supervised the medical residents activities, and agree with the H&P unless as otherwise noted. Assessment and Plan: Sepsis due to urinary tract infection/perineal cellulitis- WBC 19.2. Lactic acid 2.02, with repeat pending. Hypotension upon presentation, responded to IV fluid rehydration. Continue Zosyn IV. Follow urine culture and sensitivity. Follow blood cultures. Nystatin cream topically applied to perineal area 3 times daily. Right MCA stroke with residual- Continue aspirin, clopidogrel, metoprolol and atorvastatin. Diabetes mellitus- Hold metformin. Reduce glargine in half dosing. Patient Accu-Cheks before meals and at bedtime with NovoLog coverage per scale. Remainder of orders and notations as noted. Resident Activity Tracking Resident Involvement: Resident Care Provided Care Provided: Adult Hospital Medicine (1) Sepsis Sepsis acute organ dysfunction status: unspecified Sepsis type: sepsis due to unspecified organism Qualified Code(s): A41.9 - Sepsis, unspecified organism
[2019-08-28] MEDS: SODIUM CHLORIDE 0.9% 1000ML 1,000 ML IV SCH ×2 (03:58→12:13)
[2019-08-28] MEDS ORDERED: GLUCOSE 10 TABS/TUBE PO PRN (06:32)
[2019-08-28] MEDS ORDERED: ONDANSETRON INJ 2 MG/ML 2 ML VIAL IV PRN (06:32)
[2019-08-28] MEDS ORDERED: CARBOHYDRATES FOR HYPOGLYCEMIA PO PRN (06:32)
[2019-08-28] MEDS ORDERED: PIPERACILL/TAZOBAC CONSULT ACTIVE PRN (06:32)
[2019-08-28] MEDS ORDERED: DEXTROSE 50% 50 ML SYRINGE IV PRN (06:32)
[2019-08-28] MEDS ORDERED: GLUCOSE 40% GEL 15 GM TUBE PO PRN (06:32)
[2019-08-28] MEDS ORDERED: GLUCAGON FOR INJ 1 MG VIAL SQ PRN (06:32)
--- NOTE | 2019-08-28 06:36 | CT Scan Report ---
CT head/brain wo con CLINICAL HISTORY: 49 years-old Female with ams. Acutely altered mental status TECHNIQUE: Multiple axial CT images of the head were obtained without contrast. A dose lowering tech nique was utilized adhering to the principles of ALARA. COMPARISON: CTA of the head 11/07/2014, brain MRI 11/06/2014 FINDINGS: Study is markedly motion degraded. Encephalomalacia from remote MCA territory infarct. No acute intra cranial hemorrhage, midline shift, intracranial mass, hydrocephalus, territorial ischemia or abnormal extra-axial collection. The calvarium is intact. The paranasal sinuses, mastoid air cells, and middle ear cavities are clear . IMPRESSION: 1. Markedly motion degraded exam without acute intracranial abnormality identified. 2. Large remote MCA territory infarct. ACT 112: Negative or not required by law. The above report was generated using voice recognition software. It may contain grammatical, syntax o r spelling errors. Electronically signed by: Reynold Rodriguez M.D. 08/28/2019 6:35 AM
[2019-08-28] MEDS ORDERED: PIPERACILLIN/TAZOBACTAM 3.375 GM in DEXTROSE 5% 100 ML IV ONE (06:45)
--- NOTE | 2019-08-28 07:11 | XRay Report ---
XR chest 1V portable CLINICAL HISTORY: 49 years-old Female presenting with SEPSIS. TECHNIQUE: Portable upright AP view of the chest was obtained. COMPARISON: 11/05/2014. FINDINGS: Suboptimal positioning of the neck results in partial obscuration of the apices. Top normal cardiac size. This may be in part due to low lung volumes with hypoventilatory change. No focal opacity. No large effusion or pneumothorax. Degenerative changes of the thoracic spine. Upper a bdomen normal. IMPRESSION: 1. No acute cardiopulmonary disease. ACT 112: Negative or not required by law. Electronically signed by: Alfredo Molina M.D. 08/28/2019 7:10 AM
--- NOTE | 2019-08-28 07:38 | CT Scan Report ---
CT abd pelvis wo con CLINICAL HISTORY: 49 years-old Female presenting with ams, lower abd pain/perineum infx, DM. TECHNIQUE: Multidetector CT of the abdomen and pelvis was performed without the use of intravenous co ntrast. IV contrast: None. One or more dose lowering techniques were used consistent with the princip les of ALARA (as low as reasonably achievable), including automatic exposure control, mA or kV adjust ment to individual patient size, and/or use of iterative reconstruction. COMPARISON: None. CT DOSE (mGy.cm): The estimated cumulative dose is 2047.79 mGy.cm. FINDINGS: Craft Superintendent topogram: Unremarkable. Image quality is degraded by associated arms at the sides an over the upper abdomen and respiratory m otion artifact. Lung bases: Normal heart size. Coronary artery calcification. No pericardial or pleural effusion. No focal infiltrate or nodule at the lung bases. Liver: Normal morphology. Normal density. Biliary: No gross biliary ductal dilatation allowing for noncontrast technique. Gallbladder surgicall y absent. Pancreas: Normal noncontrast appearance. Spleen: Normal noncontrast appearance. Adrenal glands: Thickening of the bilateral adrenal glands, left greater than right, nonspecific. Und erlying nodules not excluded. Kidneys and ureters: Normal noncontrast appearance. No nephrolithiasis. No hydronephrosis. Normal ure ters. Bladder: Incompletely evaluated secondary to underdistention. Pelvic organs: Normal noncontrast appearance. Bowel: Pelvic floor laxity may be present with rectal descent. Skin thickening in the perineum may be present. There may also be wall thickening of the anus. No significant infiltration of the ischiorec wilmar fossae or gross evidence of a fluid collection in the perineum. No gross evidence of soft tissue gas. The appendix is normal. No bowel obstruction. Duodenal diverticulum suspected. Peritoneal cavity: No free fluid or intraperitoneal gas. Lymph nodes: No gross lymphadenopathy allowing for noncontrast technique. Vasculature: Atherosclerosis of the normal caliber abdominal aorta. Abdominal wall: Abdominal wall laxity. Musculoskeletal: Degenerative changes of the spine. IMPRESSION: 1. Peroneal skin thickening suspected with possible anal wall thickening. No gross evidence of absce ss or soft tissue gas. This could be reflective of the reported infection, however, please correlate with physical exam to exclude underlying neoplasm. 2. There may also be pelvic floor laxity with rectal descent. ACT 112: Negative or not required by law. Electronically signed by: Alfredo Molina M.D. 08/28/2019 7:37 AM
[2019-08-28] MEDS ORDERED: TOVIAZ~ORDER AWAITING ACTION SCH (08:00)
[2019-08-28] MEDS: INSULIN ASPART 100 UNITS/ML 3 ML PEN SC SCH ×4 (08:57→20:15)
[2019-08-28] MEDS ORDERED: METOPROLOL SUCC 50MG EXT REL TAB PO SCH (09:00)
[2019-08-28] MEDS ORDERED: ATORVASTATIN 40 MG TAB PO SCH (09:00)
[2019-08-28] MEDS ORDERED: CLOPIDOGREL BISULFATE 75 MG TAB PO SCH (09:00)
[2019-08-28] MEDS ORDERED: ASPIRIN 81 MG ECTAB PO SCH (09:00)
[2019-08-28] MEDS ORDERED: PEDIATRIC MULTIVITAMIN PO SCH (09:00)
--- NOTE | 2019-08-28 12:30 | History & Physical Bridge Note ---
Date of Service August 28, 2019 History & Physical Bridge Note Patient is doing well today. More responsive from notes. Easily wakes up, chats. No major concerns at present. - Will continue abx - Monitor perineal area; per RN it is stable, and I do not see any evidence of worsening infection. No indication of Fornier's gangrene or any more severe soft tissue infection.
[2019-08-28 13:06] LABS: Basophils # (auto) 0.05 K/uL (0-0.2); Basophils % (auto) 0.4 %; Eosinophils # (auto) 0.16 K/uL (0-0.5); Eosinophils % (auto) 1.2 %; Hematocrit (blood only) 37.2 % (37-47); Hemoglobin 12.3 g/dL (12.0-16.0); Immature Granulocytes # (auto) 0.04 K/uL (0.00-0.02); Immature Granulocytes % (auto) 0.3 %; Lymphocytes # (auto) 4.46 K/uL (1.2-3.4); Lymphocytes % (auto) 33.1 %; Mean Corpuscular Hemoglobin 30.1 pg (25-34); Mean Corpuscular Hgb Conc 33.1 g/dL (32-36); Mean Platelet Volume 9.1 fL (7.4-10.4); Monocytes # (auto) 1.12 K/uL (0.11-0.59); Monocytes % (auto) 8.3 %; Neutrophils # (auto) 7.64 K/uL (1.4-6.5); Neutrophils % (auto) 56.7 %; Platelet Count 339 K/uL (130-400); RDW Coefficient of Variation 13.3 % (11.5-14.5); RDW Standard Deviation 43.8 fL (36.4-46.3); Red Blood Count 4.09 M/uL (4.2-5.4); White Blood Count 13.47 K/uL (4.8-10.8)
[2019-08-28 13:33] LABS: BUN Creatinine Ratio 12.3 (10-20); Calcium 8.6 mg/dl (8.5-10.1); Creatinine Clr Calc Pharmacy 65.5 ml/min; Est GFR (African American) 88.2; Est GFR (Non-African American) 76.1; Magnesium 2.1 mg/dl (1.8-2.4); Potassium 3.7 mmol/L (3.5-5.1)
[2019-08-28 13:50] LABS: Beta-Hydroxybutyrate 0.92 mg/dl (0.2-2.81)
[2019-08-28] MEDS: PIPERACILLIN/TAZOBACTAM 3.375 GM in DEXTROSE 5% 100 ML IV SCH ×2 (14:44→22:24)
--- NOTE | 2019-08-28 16:49 | Electrocardiogram Report ---
Test Reason : Blood Pressure : / mmHG Vent. Rate : 109 BPM Atrial Rate : 109 BPM P-R Int : 150 ms QRS Dur : 088 ms QT Int : 354 ms P-R-T Axes : 045 067 -04 degrees QTc Int : 476 ms Poor data quality, interpretation may be adversely affected Sinus tachycardia Inferior infarct , age undetermined Cannot rule out Anterior infarct , age undetermined Nonspecific T wave abnormality Abnormal ECG When compared with ECG of 05-NOV-2014 19:39, Criteria for Inferior infarct are now Present Confirmed by Amadeo Benson ([id number]) on 08/28/2019 4:48:39 PM Referred By: REFERRED SELF Confirmed By:Amadeo Benson
[2019-08-28] MEDS ORDERED: INSULIN GLARGINE SOLOSTAR 100 UNITS/ML 3 ML PEN SC SCH (21:00)
[2019-08-29] MEDS ORDERED: PROMETHAZINE HCL 6.25 MG in SODIUM CHLORIDE 0.9% 50 ML IV PRN (01:16)
[2019-08-29] MEDS ORDERED: FAMOTIDINE 40 MG TABLET PO ONE (01:16)
--- NOTE | 2019-08-29 01:17 | Billing Data ---
Date of Service August 29, 2019 Coding Level of Care Code 86537 Initial Inpt Care Lvl 3
[2019-08-29] MEDS: PIPERACILLIN/TAZOBACTAM 3.375 GM in DEXTROSE 5% 100 ML IV SCH ×3 (05:59→22:10)
[2019-08-29] MEDS: CLOPIDOGREL BISULFATE 75 MG TAB PO SCH (08:09)
[2019-08-29] MEDS: ASPIRIN 81 MG ECTAB PO SCH (08:09)
[2019-08-29] MEDS: METOPROLOL SUCC 50MG EXT REL TAB PO SCH (08:09)
[2019-08-29] MEDS: INSULIN ASPART 100 UNITS/ML 3 ML PEN SC SCH ×4 (08:10→20:23)
[2019-08-29] MEDS ORDERED: INSULIN GLARGINE SOLOSTAR 100 UNITS/ML 3 ML PEN SC SCH (09:00)
[2019-08-29 11:06] LABS: Hematocrit (blood only) 37.6 % (37-47); Hemoglobin 13.1 g/dL (12.0-16.0); Mean Corpuscular Hgb Conc 34.8 g/dL (32-36); Mean Corpuscular Volume 88.9 fL (80-100); Platelet Count 321 K/uL (130-400); RDW Coefficient of Variation 13.2 % (11.5-14.5); RDW Standard Deviation 42.9 fL (36.4-46.3); Red Blood Count 4.23 M/uL (4.2-5.4); White Blood Count 12.21 K/uL (4.8-10.8)
[2019-08-29 11:17] LABS: Estimated Average Glucose 303 mg/dl; Hemoglobin A1C 12.2 % (4.5-5.6)
[2019-08-29 11:24] LABS: BUN Creatinine Ratio 12.8 (10-20); Calcium 9.2 mg/dl (8.5-10.1); Creatinine Clr Calc Pharmacy 72.9 ml/min; Est GFR (African American) 100.3; Est GFR (Non-African American) 86.6; Magnesium 1.9 mg/dl (1.8-2.4); Phosphorus 2.5 mg/dl (2.5-4.9); Potassium 3.4 mmol/L (3.5-5.1)
--- NOTE | 2019-08-29 15:28 | Hospitalist Progress Note ---
Date of Service August 29, 2019 Assessment & Plan (1) Cellulitis of perineum: Continue Zosyn pending clinical improvement with mentation. Likely can de- escalate antibiotics tomorrow. WBC decreasing. Continue to trend (2) UTI (urinary tract infection): Urine culture with mixed bacteria but given glucosuria is high risk of this. Continue Zosyn (3) Right middle cerebral artery stroke: History of this. Now with encephalomalacia on CT. Continue ASA, Plavix, Atorvastatin (4) AMS (altered mental status): Not yet back to her baseline as per her but also likely not to get fully back to baseline while in hospital. Will get PT and OT assessments to better assess her situation. At baseline her mobility is poor and requires a lot of assistance around the house. (5) Sepsis: Now resolved but infection remains (6) DVT prophylaxis: Levenox 40mg SQ daily Admission and Anticipated Discharge Date Admission Date: August 28, 2019 Anticipated date of discharge: 08/31/19 Subjective Patient refusing medications and lab work this morning. Orientated to year and person but not to place. She told me her wouldn't believe me that she had a stroke. Discussed care with her over the phone. He reports talking to patient this morning and not yet back to baseline but improved since admission. Usual blood glucose values 130-180. Discussed HbA1C 12.2 and he notes she will sometimes refuse insulin or for her blood glucose to be checked. Review of Systems Review of Systems: All systems reviewed & are unremarkable except as noted in HPI & below Physical Exam Constitutional: well developed and well nourished; no acute distress Eyes: + anicteric sclerae ENMT: external ear and nose normal, oropharynx normal Neck: trachea midline Respiratory: normal respiratory effort, lungs clear to auscultation Cardiovascular: Rate/Rhythm: regular rate and regular rhythm Gastrointestinal (Abdomen): Inspection/Auscultation: abdomen normal to inspection and normal bowel sounds; abdomen not distended Percussion/Palpation: abdomen soft; abdomen nontender, no guarding and abdomen not rigid Neurologic: + focal motor deficit (not moving left side, decorticate posturing of LUE), awake and + confused Psychiatric: Orientation: alert and oriented to time (year); + not oriented to person and + not oriented to place Results & Data Results & Data ([facility]) Vital Signs (Past 12 Hours) Vital Signs Temp Pulse Resp BP Pulse Ox 08/29/19 13:01 36.3 C L 81 18 134/85 100 08/29/19 07:59 36.9 C 87 18 127/78 100 PG Care Time/CCT Total # of Minutes Spent Total Time Spent with Patient: Total time spent is greater than 50% in coordination of care (as documented) at patient's floor/unit and/or counseling patient: Coding Level of Care Code 61685 Subseq Hosp Care Lvl 2 Diagnoses Cellulitis of perineum L03.315 UTI (urinary tract infection) N39.0; R31.9 Urinary tract infection type: site unspecified Hematuria presence: with hematuria Right middle cerebral artery stroke I63.511 AMS (altered mental status) R41.0 Altered mental status type: disorientation Sepsis A41.9 Sepsis acute organ dysfunction status: unspecified Sepsis type: sepsis due to unspecified organism DVT prophylaxis Z29.9 (1) UTI (urinary tract infection) Urinary tract infection type: site unspecified Hematuria presence: with hematuria Qualified Code(s): N39.0 - Urinary tract infection, site not specified; R31.9 - Hematuria, unspecified (2) Sepsis Sepsis acute organ dysfunction status: unspecified Sepsis type: sepsis due to unspecified organism Qualified Code(s): A41.9 - Sepsis, unspecified organism (3) AMS (altered mental status) Altered mental status type: disorientation Qualified Code(s): R41.0 - Disorientation, unspecified
[2019-08-29] MEDS: ENOXAPARIN INJ 40 MG/0.4 ML SYR SQ SCH (18:17)
[2019-08-29] MEDS: INSULIN GLARGINE SOLOSTAR 100 UNITS/ML 3 ML PEN SC SCH (20:24)
[2019-08-30] MEDS: PIPERACILLIN/TAZOBACTAM 3.375 GM in DEXTROSE 5% 100 ML IV SCH (05:57)
[2019-08-30 08:29] LABS: Hematocrit (blood only) 36.5 % (37-47); Hemoglobin 12.6 g/dL (12.0-16.0); Mean Corpuscular Hgb Conc 34.5 g/dL (32-36); Mean Corpuscular Volume 89.9 fL (80-100); Mean Platelet Volume 9.1 fL (7.4-10.4); Platelet Count 306 K/uL (130-400); RDW Coefficient of Variation 13.3 % (11.5-14.5); RDW Standard Deviation 43.7 fL (36.4-46.3); Red Blood Count 4.06 M/uL (4.2-5.4); White Blood Count 11.01 K/uL (4.8-10.8)
[2019-08-30 08:57] LABS: BUN Creatinine Ratio 18.4 (10-20); Calcium 9.3 mg/dl (8.5-10.1); Creatinine Clr Calc Pharmacy 74.7 ml/min; Est GFR (African American) 103.5; Est GFR (Non-African American) 89.3; Potassium 3.3 mmol/L (3.5-5.1)
[2019-08-30] MEDS: ATORVASTATIN 40 MG TAB PO SCH (08:58)
[2019-08-30] MEDS: CLOPIDOGREL BISULFATE 75 MG TAB PO SCH (08:58)
[2019-08-30] MEDS: METOPROLOL SUCC 50MG EXT REL TAB PO SCH (08:59)
[2019-08-30] MEDS: ASPIRIN 81 MG ECTAB PO SCH (08:59)
[2019-08-30] MEDS: INSULIN GLARGINE SOLOSTAR 100 UNITS/ML 3 ML PEN SC SCH ×2 (09:00→20:36)
[2019-08-30] MEDS: INSULIN ASPART 100 UNITS/ML 3 ML PEN SC SCH ×4 (09:01→20:35)
[2019-08-30] MEDS: ENOXAPARIN INJ 40 MG/0.4 ML SYR SQ SCH (09:02)
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
[2019-08-30] MEDS ORDERED: POTASSIUM CHLORIDE 20 MEQ TABCR PO STA (19:35)
[2019-08-30] MEDS: SULFAMETHOXAZOLE/TRIMETHOPRIM DS 800/160MG TAB PO SCH (20:32)
[2019-08-31 06:31] LABS: Hematocrit (blood only) 38.8 % (37-47); Hemoglobin 13.2 g/dL (12.0-16.0); Mean Corpuscular Hemoglobin 30.3 pg (25-34); Mean Platelet Volume 9.1 fL (7.4-10.4); Platelet Count 355 K/uL (130-400); RDW Coefficient of Variation 13.2 % (11.5-14.5); RDW Standard Deviation 42.8 fL (36.4-46.3); Red Blood Count 4.36 M/uL (4.2-5.4); White Blood Count 13.79 K/uL (4.8-10.8)
[2019-08-31 06:53] LABS: Basophils # (auto) 0.05 K/uL (0-0.2); Basophils % (auto) 0.4 %; Eosinophils # (auto) 0.19 K/uL (0-0.5); Eosinophils % (auto) 1.4 %; Immature Granulocytes # (auto) 0.03 K/uL (0.00-0.02); Immature Granulocytes % (auto) 0.2 %; Lymphocytes # (auto) 5.13 K/uL (1.2-3.4); Lymphocytes % (auto) 37.2 %; Monocytes # (auto) 1.35 K/uL (0.11-0.59); Monocytes % (auto) 9.8 %; Neutrophils # (auto) 7.04 K/uL (1.4-6.5)
[2019-08-31 07:11] LABS: BUN Creatinine Ratio 19.1 (10-20); C Reactive Protein 0.38 mg/dl (0-0.29); Calcium 9.7 mg/dl (8.5-10.1); Creatinine Clr Calc Pharmacy 80.9 ml/min; Est GFR (Non-African American) 98.3; Potassium 4.1 mmol/L (3.5-5.1)
[2019-08-31] MEDS: METOPROLOL SUCC 50MG EXT REL TAB PO SCH (08:21)
[2019-08-31] MEDS: CLOPIDOGREL BISULFATE 75 MG TAB PO SCH (08:21)
[2019-08-31] MEDS: ASPIRIN 81 MG ECTAB PO SCH (08:22)
[2019-08-31] MEDS: ATORVASTATIN 40 MG TAB PO SCH (08:22)
[2019-08-31] MEDS: SULFAMETHOXAZOLE/TRIMETHOPRIM DS 800/160MG TAB PO SCH ×2 (08:22→20:09)
[2019-08-31] MEDS: ENOXAPARIN INJ 40 MG/0.4 ML SYR SQ SCH ×2 (08:23→08:33)
[2019-08-31] MEDS: INSULIN GLARGINE SOLOSTAR 100 UNITS/ML 3 ML PEN SC SCH ×2 (08:24→20:40)
[2019-08-31] MEDS: INSULIN ASPART 100 UNITS/ML 3 ML PEN SC SCH ×4 (08:25→20:41)
[2019-08-31] MEDS: FLUCONAZOLE 100 MG TAB PO SCH (12:18)
[2019-08-31] MEDS: NYSTATIN POWDER 15GM BTL EXT SCH ×3 (14:49→20:10)
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
[2019-09-01 07:07] LABS: Hematocrit (blood only) 38.3 % (37-47); Hemoglobin 13.1 g/dL (12.0-16.0); Mean Corpuscular Hemoglobin 31.1 pg (25-34); Mean Corpuscular Hgb Conc 34.2 g/dL (32-36); Mean Platelet Volume 9.2 fL (7.4-10.4); Platelet Count 350 K/uL (130-400); RDW Coefficient of Variation 13.7 % (11.5-14.5); RDW Standard Deviation 45.2 fL (36.4-46.3); Red Blood Count 4.21 M/uL (4.2-5.4); White Blood Count 12.39 K/uL (4.8-10.8)
[2019-09-01 07:43] LABS: BUN Creatinine Ratio 23.5 (10-20); Calcium 9.4 mg/dl (8.5-10.1); Creatinine Clr Calc Pharmacy 64.7 ml/min; Est GFR (Non-African American) 75.1; Potassium 3.9 mmol/L (3.5-5.1)
[2019-09-01] MEDS: INSULIN ASPART 100 UNITS/ML 3 ML PEN SC SCH ×2 (08:31→12:18)
[2019-09-01] MEDS: FLUCONAZOLE 100 MG TAB PO SCH (08:33)
[2019-09-01] MEDS: ASPIRIN 81 MG ECTAB PO SCH (08:33)
[2019-09-01] MEDS: ATORVASTATIN 40 MG TAB PO SCH (08:34)
[2019-09-01] MEDS: NYSTATIN POWDER 15GM BTL EXT SCH ×2 (08:35→14:49)
[2019-09-01] MEDS: SULFAMETHOXAZOLE/TRIMETHOPRIM DS 800/160MG TAB PO SCH (08:35)
[2019-09-01] MEDS: CLOPIDOGREL BISULFATE 75 MG TAB PO SCH (08:35)
[2019-09-01] MEDS: ENOXAPARIN INJ 40 MG/0.4 ML SYR SQ SCH (08:35)
[2019-09-01] MEDS: METOPROLOL SUCC 50MG EXT REL TAB PO SCH (08:36)
[2019-09-01] MEDS: INSULIN GLARGINE SOLOSTAR 100 UNITS/ML 3 ML PEN SC SCH (09:39)
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
== END 2019-09-01 16:08 | disposition home health service (06) | DRG 871 ==
LOC: 2S 23:27 → ED 23:27 → SUATTDRO 08-28 04:20 → 2S 08-28 06:25 → 2N 08-29 11:30 → SUATTDRO 08-29 16:13

== ENCOUNTER 2020-10-18 13:30 | Inpatient (IN) ==
[2020-10-18 14:49] LABS: iSTAT Creatinine 0.5 mg/dl (0.6-1.3); iSTAT Hemoglobin 14.3 g/dl (12.0-16.0); iSTAT Ionized Calcium 1.62 mmol/l (1.12-1.32); iSTAT Potassium 2.7 mmol/L (3.3-5.0)
[2020-10-18] MEDS ORDERED: PIPERACILL/TAZOBAC CONSULT ACTIVE PRN ×2 (14:53→20:29)
[2020-10-18] MEDS ORDERED: PIPERACILLIN/TAZOBACTAM 4.5 GM/120 ML BAG IV ONE (14:53)
[2020-10-18] MEDS ORDERED: SODIUM CHLORIDE 0.9% 1000ML 1,000 ML IV SCH ×2 (15:00→15:46)
[2020-10-18 15:18] LABS: Alanine Aminotransferase 17 U/L (12-78); Albumin Globulin Ratio 0.3 (0.9-2); Albumin Level 2.2 gm/dl (3.4-5.0); Aspartate Aminotransferase 11 U/L (15-37); BUN Creatinine Ratio 23.4 (10-20); Bilirubin Direct < 0.1 mg/dl (0-0.2); Bilirubin,Total 0.5 mg/dl (0.2-1); Blood Urea Nitrogen 29 mg/dl (7-18); Calcium 12.6 mg/dl (8.5-10.1); Carbon Dioxide 8 mmol/L (21-32); Chloride 104 mmol/L (98-107); Est GFR (African American) 59.2 ml/min; Est GFR (Non-African American) 51.1 ml/min; Globulin 6.7 gm/dl (2.5-4.0); Glucose 537 mg/dl (70-99); Lipase 219 U/L (73-393); Magnesium 2.3 mg/dl (1.8-2.4); Phosphorus 3.2 mg/dl (2.5-4.9); Potassium 2.6 mmol/L (3.5-5.1); Sodium 138 mmol/L (136-145); Total Protein 8.9 gm/dl (6.4-8.2)
[2020-10-18 15:27] LABS: Alkaline Phosphatase 222 U/L (45-117); Creatine Kinase 98 U/L (26-192); Thyroid Stimulating Hormone 0.515 uIu/ml (0.300-4.500); Troponin I < 0.015 ng/ml (0-0.045)
[2020-10-18 15:34] LABS: Base Excess VBG -17.6 mEq/L; HCO3 VBG 9 mmol/L; PCO2 VBG 25 mmHg (38-50); PO2 VBG 20 mmHg; pH VBG 7.18 (7.36-7.41)
[2020-10-18 15:38] LABS: Hematocrit (blood only) 39.3 % (37-47); Hemoglobin 13.5 g/dL (12.0-16.0); Mean Corpuscular Hemoglobin 30.9 pg (25-34); Mean Corpuscular Hgb Conc 34.4 g/dL (32-36); Mean Corpuscular Volume 89.9 fL (80-100); Mean Platelet Volume 9.1 fL (7.4-10.4); Platelet Count 844 K/uL (130-400); RDW Coefficient of Variation 13.7 % (11.5-14.5); RDW Standard Deviation 45.2 fL (36.4-46.3); Red Blood Count 4.37 M/uL (4.2-5.4); White Blood Count 47.94 K/uL (4.8-10.8)
[2020-10-18 15:39] LABS: Oxygen Saturation VBG < 60.0 %
[2020-10-18 15:43] LABS: Basophils # (auto) 0.21 K/uL (0-0.2); Basophils % (auto) 0.4 %; Echinocytes 2+; INR 1.1 (0.9-1.1); Immature Granulocytes % (auto) 4.4 %; Lymphocytes # (auto) 2.71 K/uL (1.2-3.4); Lymphocytes % (auto) 5.7 %; Monocytes # (auto) 3.35 K/uL (0.11-0.59); Neutrophils # (auto) 39.57 K/uL (1.4-6.5); Neutrophils % (auto) 82.5 %; Prothrombin Time 11.4 Seconds (9.0-12.0)
[2020-10-18 15:51] LABS: Partial Thromboplastin Ratio 0.8; Partial Thromboplastin Time < 20.0 Seconds (21.0-31.0)
[2020-10-18 15:52] LABS: Beta-Hydroxybutyrate 107.88 mg/dl (0.2-2.81)
[2020-10-18] MEDS: POTASSIUM CHLORIDE / WTR 10 MEQ/100 ML PLCT IV SCH ×7 (16:09→23:33)
[2020-10-18] MEDS ORDERED: OPTIRAY 320 100ml IV ONE (16:41)
[2020-10-18 16:49] LABS: Appearance Urine Clear (Clear); Bacteria Urine Automated 1+ (Negative); Bilirubin Urine Negative (Negative); Blood Urine 2+ (Negative); Color Urine Yellow; Epithelial Cell Urine Auto >30 /lpf (0-5); Glucose Urine UA 3+ (Negative); Ketones Urine 4+ (Negative); Leukocyte Esterase Urine Negative (Negative); Nitrite Urine Negative (Negative); Protein Urine 1+ (Negative); Specific Gravity Urine 1.026 (1.000-1.030); Urobilinogen Urine Negative (Negative)
[2020-10-18] MEDS ORDERED: VANCOMYCIN HCL 1,750 MG in SODIUM CHLORIDE 0.9% 500 ML IV ONE (16:52)
[2020-10-18] MEDS ORDERED: VANCOMYCIN CONSULT ACTIVE PRN ×2 (16:52→20:29)
--- NOTE | 2020-10-18 16:54 | CT Scan Report ---
CT head/brain wo con CLINICAL HISTORY: 50 years-old Female with confusion, sepsis, h/o cva. Acutely altered mental status with sepsis TECHNIQUE: Multiple axial CT images of the head were obtained without contrast. A dose lowering tech nique was utilized adhering to the principles of ALARA. CT DOSE: 1118.13 mGy.cm COMPARISON: None. FINDINGS: Motion degraded exam. No acute intracranial hemorrhage, midline shift, intracranial mass, hydrocephal us, territorial ischemia or abnormal extra-axial collection. Large chronic right MCA infarct with enc ephalomalacia and ex vacuo ventriculomegaly of the right lateral ventricle. Associated wallerian dege neration of the right thalamus and midbrain. White matter hypodensities suggestive of chronic microva scular ischemic disease. The calvarium is intact. Mastoid air cells are clear. Moderate mucosal thickening of the left maxill deb sinus. Unremarkable soft tissues and orbits. IMPRESSION: 1. Motion degraded exam without acute intracranial abnormality. 2. Large chronic right MCA territorial infarct. ACT 112: Negative or not required by law. The above report was generated using voice recognition software. It may contain grammatical, syntax o r spelling errors. Electronically signed by: Josue Rodriguez M.D. 10/18/2020 4:53 PM
[2020-10-18 16:59] LABS: Cast Urine Automated 0 /lpf (0-5)
--- NOTE | 2020-10-18 17:02 | CT Scan Report ---
CT SCAN OF THE ABDOMEN AND PELVIS WITH IV CONTRAST CLINICAL HISTORY: Generalized abdominal pain. Sepsis. COMPARISON STUDY: Abdominal CT dated 08/28/2019. TECHNIQUE: Following the IV administration of 94 cc of Optiray 320, CT scan of the abdomen and pelvi s is performed from the lung bases to the proximal femora. Images are reviewed in the axial, sagittal , and coronal planes. IV contrast was administered without complication. A dose lowering technique wa s utilized adhering to the principles of ALARA. The examination is degraded by streak artifact from t he arms which could not be elevated above the abdomen. There is also motion artifact. FINDINGS: Lung bases: The heart is normal in size and without pericardial effusion. There are coronary artery c alcifications. The lung bases are clear. Liver: The contrast-enhanced liver is normal in size, contour, and attenuation. There is no intrahepa tic biliary ductal dilatation. The hepatic veins and portal veins are patent. Gallbladder: Surgically absent noting clips in the gallbladder fossa. Spleen: Normal in size and attenuation. Pancreas: Moderately atrophic and grossly unremarkable. Adrenal glands: Nodular thickening of the adrenal glands is similar to previous. Kidneys: The contrast enhanced kidneys are normal in size and without hydronephrosis. The kidneys enh ance symmetrically. Abdominal vasculature: The abdominal aorta is normal in course and caliber noting moderate to advance d atherosclerotic calcification. Bowel: There is no bowel obstruction. There is a small duodenal diverticulum. The appendix is well-v isualized and normal. A hyperdense structure is noted within the cecum on image # #[id number]. Peritoneum: There is no intraperitoneal free air or abdominal ascites. Lymphadenopathy: None. Pelvic viscera: The bladder is decompressed around a Aguialr catheter and cannot be evaluated. The uter us and adnexa are normal as visualized. Skeletal structures: The skeletal structures are osteopenic. There is mild to moderate lumbosacral sp ondylosis. No lytic or blastic lesions are seen. IMPRESSION: 1. Streak and motion degraded examination. 2. No acute infectious or inflammatory findings are identified in the abdomen or pelvis. 3. There is no bowel obstruction. 4. Additional findings as above. ACT 112: Negative or not required by law. Electronically signed by: Navneet Darden M.D. 10/18/2020 5:01 PM
--- NOTE | 2020-10-18 17:15 | XRay Report ---
SINGLE VIEW CHEST CLINICAL HISTORY: Sepsis. FINDINGS: An AP, portable, upright chest radiograph is compared to study dated 08/28/2019. Correlation is made with chest CT dated 07/24/2007. The examination is degraded by portable technique and patient rotation. The heart is top normal for projection noting atherosclerotic calcification of the thoraci c aorta. There are low lung volumes with mild elevation of the right hemidiaphragm and bibasilar atel ectasis. No airspace consolidation or large pleural effusion is identified. No pneumothorax is seen. The skeletal structures are osteopenic. The bony thorax is grossly intact. IMPRESSION: No acute cardiopulmonary abnormality. ACT 112: Negative or not required by law. Electronically signed by: Navneet Darden M.D. 10/18/2020 5:13 PM
--- NOTE | 2020-10-18 17:17 | XRay Report ---
LEFT ANKLE 2 VIEWS CLINICAL HISTORY: Left lower external the ulcer. FINDINGS: Crosstable AP and lateral radiographs of the left ankle are obtained. No prior studies are available for comparison at the time of dictation. The skeletal structures are osteopenic. No fractur e is identified. No bony erosion or periostitis is seen. The ankle mortise is intact. There is no paulino nt effusion. There are small dorsal and large plantar calcaneal enthesophytes. A soft tissue ulcerati on is suggested posterior to the ankle joint with soft tissue edema and foci of subcutaneous gas. Sof t tissue gas is seen more proximally into the calf on the AP view. No radiodense foreign body is iden tified. There is advanced atherosclerotic calcification of the regional arteries. IMPRESSION: 1. No acute bony abnormality is identified. 2. Dorsal ulceration and soft tissue edema as above. Subcutaneous gas indicates soft tissue infection and clinical correlation will be required. 3. Osteopenia and degenerative change as above. Electronically signed by: Navneet Darden M.D. 10/18/2020 5:16 PM
--- NOTE | 2020-10-18 18:37 | Emergency Department Note ---
Impression & Plan Sepsis, DKA (diabetic ketoacidosis), UTI (urinary tract infection), Heel ulceration, Elevated lactic acid level, Hypokalemia, Acute metabolic encephalopathy ED Provider Note NAME: ARMIDA LYONS AGE: 50 SEX: F ARRIVES VIA: Ambulance INFORMANT: ED PROVIDER(S): Esa Parada MD CHIEF COMPLAINT: AMS PLAN: Disposition: Admit MEDICAL DECISION MAKING: The patient is a 50-year-old woman with a complicated past medical history of large right MCA stroke in 2014 with residual left-sided weakness/paresis and per documentation diminished conversation capabilities, hypertension, hyperlipidemia, insulin-dependent type 2 diabetes who presents to the emergency department accompanied by her with concern for decline in mental status over the past several days where she was having episodes of vomiting and subsequently with poor oral intake thereafter becoming increasingly somnolent and no longer verbal. The patient's reports that at her baseline she has "normal conversations" however this is not consistent with prior documentation. He additionally reports that she is normally awake and alert and will follow commands and at this time she is not doing that. He reports her sugars were high today and he reports a wound on her left heel that she suffered a week ago has also rapidly gotten worse. Otherwise, he denies any cough, congestion or shortness of breath. He denies any known COVID-19 exposures. On arrival the patient is acute on chronically ill-appearing, somnolent but awake with eyes open moving her head purposefully and tracking but with poor attention and not following commands. She does move her right upper and right lower extremity with generalized weakness 2/5 strength. She appears clinically dry with dry cracked mucous membranes, mottling and tenting of skin. Abdomen is nontender nondistended. She has a foul smelling 5 cm left heel ulcer with purulent drainage. The overlying dressing is saturated with foul-smelling discharge and blackened appearing to have not been changed in at least several days. No surrounding edema, crepitus. She does exhibit painful response to light touch for the left foot. Unable to doppler left foot pedal pulses though foot is warm. There is mottling with capillary refill left foot of approximately 2s. Right pedal pulses dopplerable pulses. The patient's back exhibits diffuse blanchable slightly raised erythema with papular component with mild warmth. There is no crepitus or edema. EKG does not demonstrate overt ST elevation or depression. Chest x-ray without overt acute cardiopulmonary process. WBC 47.9K and platelets 844K while consistent with suspicion for infection likely also reflects component of hemoconcentration given the patient's clinically dry appearance and serum osmolality of 345. Lab results additionally consistent with DKA with VBG pH of 7.18. Chemistry with bicarb of 8 with anion gap of 26 and beta hydroxybutyrate of 107. Also has a component of lactic acidosis with lactate initially 2.9 which did clear to 1.8 following initial IV fluid hydration with 2 L normal saline. Glucose initially was 540s and this did decrease to 440s following IV fluid hydration. Initial sodium was 140 which corrected to approximately 150 indicative of approximate 2.5 L free water deficit. Potassium was 2.6 with repletion initiated and insulin deferred until potassium improved to 3.3. Calcium was 12.6 in setting of the patient's hypovolemia. Procalcitonin 0.79, consistent with urine infection with UA with blood WBCs and bacteria albeit with epithelial cells present. COVID-[address] of the head negative for acute process. CT the abdomen pelvis also negative for acute process. Arterial ultrasound was ordered to further evaluate the patient's left lower extremity arterial disease however given exam is not consistent with acute arterial occlusion will defer completion of study once admitted. Patient was treated empirically with Zosyn and vancomycin for suspected sepsis. Maintenance IV fluids ordered with normosol at 250/h following initial 2 L of normal saline. Heart rate and blood pressure have remained stable. Repeat blood gas on ABG with improvement in acidemia to 7.25. Repeat BMP with improving AGAP to 22 with bicarb unchanged. Potassium 3.1. Case was discussed with Dr. Penning[place], [facility], who will evaluate the patient for admission. Of note, case management to file report with our office of aging to evaluate for possibility of neglect given the patient's presentation with necrotic heel ulcer with dressing unchanged as well as pendant folliculitis/cellulitis in addition to the patient's rapidly declining clinical condition leading to DKA. Triage Nursing notes reviewed and agree them. Prior medical records reviewed Vital Signs: reviewed and remarkable for tachycardia. Differential diagnosis: Sepsis, UTI, pneumonia, metabolic, electrolyte abnormalities, cardiac sources, intracerebral event, toxicologic, neurologic, as well as other pathologies. ER treatment provided: See below. Diagnostics interpreted by me: ECG: Sinus tachycardia, 105 bpm, nonspecific T wave abnormality, no overt ST elevation or depression, QTC 681, QRS 98. Cardiac Monitoring: An order for continuous cardiac monitoring was placed and demonstrated Sinus tachycardia, 105 bpm, no ectopy. Laboratory studies: See below Imaging studies: See below Consultation(s): Case was discussed with Dr. Pennington, [facility], who will evaluate the patient for admission. 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 The patient's reports that at her baseline she has "normal conversations" however this is not consistent with prior documentation. He additionally reports that she is normally awake and alert and will follow commands and at this time she is not doing that. He reports her sugars were high today and he reports a wound on her left heel that she suffered a week ago has also rapidly gotten worse. Otherwise, he denies any cough, congestion or shortness of breath. He denies any known COVID-19 exposures. ROS: See above HPI for pertinent positives & negatives. A total of 10 systems reviewed and were otherwise negative. PAST MEDICAL HISTORY:See Below PAST SURGICAL HISTORY:See Below FAMILY HISTORY:See Below SOCIAL HISTORY:See Below HOME MEDICATIONS:See Below ALLERGIES:See Below VITALS:See Below PHYSICAL EXAMINATION: GENERAL: Awake, acute on chronically ill-appearing, in no distress HENT: Normocephalic, atraumatic. Oropharynx withdry cracked mucous membranes. EYES: Normal conjunctiva. Sclera non-icteric. NECK: Supple. No nuchal rigidity. FROM. No JVD. RESPIRATORY: Clear to auscultation. CARDIAC: Regular rate, normal rhythm. Extremities warm and well perfused. Pulses equal. ABDOMEN: Soft, non-distended. No tenderness to palpation. No rebound or guarding. No masses. RECTAL: Deferred. MUSCULOSKELETAL: Chest examination reveals no tenderness. The back is symmetrical on inspection without obvious abnormality. There is no CVA tenderness to palpation. No joint edema. LOWER EXTREMITIES: Calves are equal size bilaterally. Foul smelling, stage 3, 5 cm left heel ulcer with necrosis and mild purulent drainage. The overlying dressing is saturated with foul-smelling discharge and blackened, appearing to have not been changed in at least several days. No surrounding edema, crepitus. Tenderness to light touch for the left foot. Unable to doppler left foot pedal pulses though foot is warm. There is mottling with capillary refill left foot of approximately 2s. Right pedal pulses dopplerable pulses. NEURO: Somnolent but awake with eyes open moving her head purposefully and tracking but with poor attention and not following commands. She does move her right upper and right lower extremity with generalized weakness 2/5 strength. SKIN: Mottling and tenting of skin. Back exhibits diffuse blanchable slightly raised erythema with papular component with mild warmth with no crepitus or edema. No jaundice noted. ED COURSE: Critical Care: I have personally spent greater than 125 minutes of critical care time in the direct management of this patient. This includes bedside care, interpretation of diagnostic studies, and testing, discussion with consultants, patient, and family members, and other required patient management activities. This 125 minutes is in excess of all separately billable procedures. Esa Parada MD Past Med/Surg History Medical History Chronic hypertension Diabetes Right middle cerebral artery stroke Surgical History History of cholecystectomy Social History Smoking Status: Never smoker Preferred Language: Cameroonian Communication Ability: Impaired Communication Ability Comment: hx of r mca stroke Top Installer Required: No Beliefs That Will Affect Care: None Current Living Situation: Spouse Current Living Situation Comment: ? neglect Feels Safe at Home: Yes Assistive Devices: Wheelchair Allergies Allergies Allergy/AdvReac Type Severity Reaction Status Date / Time No Known Allergies Allergy Verified 10/18/20 18:10 Home Meds Home Medications Medication Instructions Recorded Confirmed Toviaz 8 mg PO DAILY 08/28/19 10/18/20 aspirin 81 mg PO DAILY 08/28/19 10/18/20 atorvastatin 40 mg PO DAILY 08/28/19 10/18/20 clopidogrel [Plavix] 75 mg PO DAILY 08/28/19 10/18/20 insulin aspart U-100 [Novolog 0 unit SUBCUT ACHS 08/28/19 10/18/20 Flexpen U-100 Insulin] lisinopril 20 mg PO DAILY 08/28/19 10/18/20 metformin 500 mg PO BID 08/28/19 10/18/20 metoprolol succinate 50 mg PO DAILY 08/28/19 10/18/20 pediatric multivitamin 2 tab PO DAILY 08/28/19 10/18/20 Previous Rx's Medication Instructions Recorded Lantus Solostar U-100 Insulin 50 unit SUBCUT BID #1 pen 09/01/19 Results & Data (ED) Vital Signs Vital Signs - 24 hr 10/18/20 13:41 10/18/20 13:47 10/18/20 14:00 Temperature Temperature Source Pulse Rate 106 H 107 H 103 H Pulse Rate from SpO2 Sensor 107 H 107 H 103 H Respiratory Rate 22 25 H 21 Respiratory Depth Blood Pressure 148/117 H 152/91 H 157/86 H Blood Pressure Mean 127 111 109 Pulse Oximetry 100 99 100 Oxygen Delivery Method Sepsis Recent Fever Within 48 Hours Sepsis New/Unexplained Change in Mental Status Sepsis Action Taken by Nursing 10/18/20 14:10 10/18/20 14:30 10/18/20 14:47 Temperature Temperature Source Pulse Rate 103 H 104 H Pulse Rate from SpO2 Sensor 103 H Respiratory Rate 21 25 H Respiratory Depth Blood Pressure 135/102 H Blood Pressure Mean 113 Pulse Oximetry 100 Oxygen Delivery Method Sepsis Recent Fever Within 48 Hours No Sepsis New/Unexplained Change in Mental Status Yes Sepsis Action Taken by Nursing Physician Notified 10/18/20 15:01 10/18/20 16:14 10/18/20 16:25 Temperature 36.6 C Temperature Source Oral Pulse Rate 98 H 96 H Pulse Rate from SpO2 Sensor 96 H Respiratory Rate 21 19 20 Respiratory Depth Normal Blood Pressure 167/70 H 176/82 H Blood Pressure Mean 102 113 Pulse Oximetry 100 96 Oxygen Delivery Method Room Air Sepsis Recent Fever Within 48 Hours Sepsis New/Unexplained Change in Mental Status Sepsis Action Taken by Nursing 10/18/20 16:30 10/18/20 17:01 10/18/20 17:30 Temperature Temperature Source Pulse Rate 96 H 96 H 97 H Pulse Rate from SpO2 Sensor 96 H 96 H Respiratory Rate 17 Respiratory Depth Blood Pressure 159/84 H 157/89 H Blood Pressure Mean 109 111 Pulse Oximetry 100 100 Oxygen Delivery Method Sepsis Recent Fever Within 48 Hours Sepsis New/Unexplained Change in Mental Status Sepsis Action Taken by Nursing 10/18/20 17:31 10/18/20 17:40 10/18/20 17:50 Temperature Temperature Source Pulse Rate 97 H 96 H 92 H Pulse Rate from SpO2 Sensor 96 H 92 H Respiratory Rate 20 20 Respiratory Depth Blood Pressure 183/96 H Blood Pressure Mean 125 Pulse Oximetry 100 100 Oxygen Delivery Method Sepsis Recent Fever Within 48 Hours Sepsis New/Unexplained Change in Mental Status Sepsis Action Taken by Nursing 10/18/20 18:00 10/18/20 18:01 10/18/20 18:10 Temperature Temperature Source Pulse Rate 91 H 91 H 92 H Pulse Rate from SpO2 Sensor 90 91 H 92 H Respiratory Rate 20 20 21 Respiratory Depth Blood Pressure 140/76 Blood Pressure Mean 97 Pulse Oximetry 100 100 100 Oxygen Delivery Method Sepsis Recent Fever Within 48 Hours Sepsis New/Unexplained Change in Mental Status Sepsis Action Taken by Nursing 10/18/20 18:20 10/18/20 18:30 10/18/20 18:31 Temperature Temperature Source Pulse Rate 94 H 96 H 97 H Pulse Rate from SpO2 Sensor 93 H 96 H 97 H Respiratory Rate 20 25 H 22 Respiratory Depth Blood Pressure 147/98 H Blood Pressure Mean 114 Pulse Oximetry 100 100 100 Oxygen Delivery Method Sepsis Recent Fever Within 48 Hours Sepsis New/Unexplained Change in Mental Status Sepsis Action Taken by Nursing 10/18/20 18:40 10/18/20 18:50 10/18/20 19:00 Temperature Temperature Source Pulse Rate 100 H 101 H 101 H Pulse Rate from SpO2 Sensor 100 H 101 H 99 H Respiratory Rate 24 24 22 Respiratory Depth Blood Pressure Blood Pressure Mean Pulse Oximetry 100 100 99 Oxygen Delivery Method Sepsis Recent Fever Within 48 Hours Sepsis New/Unexplained Change in Mental Status Sepsis Action Taken by Nursing 10/18/20 19:01 10/18/20 19:10 10/18/20 19:20 Temperature Temperature Source Pulse Rate 100 H 101 H 102 H Pulse Rate from SpO2 Sensor 100 H 100 H Respiratory Rate 19 17 23 Respiratory Depth Blood Pressure 205/110 H Blood Pressure Mean 141 Pulse Oximetry 100 100 Oxygen Delivery Method Sepsis Recent Fever Within 48 Hours Sepsis New/Unexplained Change in Mental Status Sepsis Action Taken by Nursing 10/18/20 19:50 10/18/20 19:51 10/18/20 19:52 Temperature Temperature Source Pulse Rate 101 H 101 H 101 H Pulse Rate from SpO2 Sensor 101 H 101 H 101 H Respiratory Rate 21 21 17 Respiratory Depth Blood Pressure 80/43 L 95/78 L Blood Pressure Mean 55 83 Pulse Oximetry 100 100 100 Oxygen Delivery Method Sepsis Recent Fever Within 48 Hours Sepsis New/Unexplained Change in Mental Status Sepsis Action Taken by Nursing 10/18/20 20:00 10/18/20 20:10 10/18/20 20:11 Temperature Temperature Source Pulse Rate 100 H 103 H 102 H Pulse Rate from SpO2 Sensor 100 H 103 H 102 H Respiratory Rate 23 22 23 Respiratory Depth Blood Pressure 104/90 Blood Pressure Mean 94 Pulse Oximetry 99 99 99 Oxygen Delivery Method Sepsis Recent Fever Within 48 Hours Sepsis New/Unexplained Change in Mental Status Sepsis Action Taken by Nursing 10/18/20 20:13 10/18/20 20:14 10/18/20 20:20 Temperature Temperature Source Pulse Rate 103 H 103 H 101 H Pulse Rate from SpO2 Sensor 102 H 103 H 101 H Respiratory Rate 23 17 22 Respiratory Depth Blood Pressure 156/117 H Blood Pressure Mean 108 130 Pulse Oximetry 99 99 100 Oxygen Delivery Method Sepsis Recent Fever Within 48 Hours Sepsis New/Unexplained Change in Mental Status Sepsis Action Taken by Nursing 10/18/20 20:30 Temperature Temperature Source Pulse Rate 101 H Pulse Rate from SpO2 Sensor 101 H Respiratory Rate 25 H Respiratory Depth Blood Pressure Blood Pressure Mean Pulse Oximetry 99 Oxygen Delivery Method Sepsis Recent Fever Within 48 Hours Sepsis New/Unexplained Change in Mental Status Sepsis Action Taken by Nursing Laboratory Data Attestation: I reviewed the patient's lab results. Result diagrams: 10/18/20 14:25 10/18/20 19:40 Lab Results 10/18/20 10/18/20 10/18/20 Range/Units 14:15 14:25 14:25 WBC 47.94 H* (4.8-10.8) K/uL RBC 4.37 (4.2-5.4) M/uL Hgb 13.5 (12.0-16.0) g/dL POC Hgb (12.0-16.0) g/dl Hct 39.3 (37-47) % POC Hct (37-47) % MCV 89.9 (80-100) fL MCH 30.9 (25-34) pg MCHC 34.4 (32-36) g/dL RDW Std Deviation 45.2 (36.4-46.3) fL RDW Coeff of Travis 13.7 (11.5-14.5) % Plt Count 844 H (130-400) K/uL MPV 9.1 (7.4-10.4) fL Immature Gran % (Auto) 4.4 % Neut % (Auto) 82.5 % Lymph % (Auto) 5.7 % [place] % (Auto) 7.0 % Eos % (Auto) 0.0 % Baso % (Auto) 0.4 % Neut # (Auto) 39.57 H (1.4-6.5) K/uL Lymph # (Auto) 2.71 (1.2-3.4) K/uL [place] # (Auto) 3.35 H (0.11-0.59) K/uL Eos # (Auto) 0.00 (0-0.5) K/uL Baso # (Auto) 0.21 H (0-0.2) K/uL Immature Gran # (Auto) 2.10 H (0.00-0.02) K/uL Echinocytes 2+ PT 11.4 (9.0-12.0) Seconds INR 1.1 (0.9-1.1) APTT < 20.0 L (21.0-31.0) Seconds PTT Ratio 0.8 ABG pH (7.35-7.45) ABG pCO2 (35-46) mmHg ABG pO2 (80-95) mmHg ABG HCO3 (19-24) mmol/L ABG O2 Saturation (90-95) % ABG Base Excess (-9-1.8) mEq/L Shahram Test (Pos) VBG pH (7.36-7.41) VBG pCO2 (38-50) mmHg VBG pO2 mmHg VBG HCO3 mmol/L VBG O2 Saturation % VBG Base Excess mEq/L Barometric Pressure mm/Hg Oxygen Given POC Sodium (135-144) mmol/L Sodium (136-145) mmol/L POC Potassium (3.3-5.0) mmol/L Potassium (3.5-5.1) mmol/L POC Chloride (101-112) mmol/L Chloride (98-107) mmol/L Carbon Dioxide (21-32) mmol/L POC Total CO2 (24-31) mmol/L Anion Gap (3-11) POC Anion Gap (16-25) mmol/L POC BUN (7-18) mg/dl BUN (7-18) mg/dl Creatinine (0.6-1.2) mg/dl POC Creatinine (0.6-1.3) mg/dl Est Cr Clr Drug Dosing Est GFR ( Amer) ml/min Est GFR (Non-Af Amer) ml/min BUN/Creatinine Ratio (10-20) Glucose (70-99) mg/dl POC Glucose 529 H* (70-99) mg/dl POC Glucose (other) (70-99) mg/dl Osmolality (280-300) mOsm/kg Lactate (0.4-2.0) mmol/L Calcium (8.5-10.1) mg/dl POC Ioniz Calcium Sesar (1.12-1.32) mmol/l Phosphorus (2.5-4.9) mg/dl Magnesium (1.8-2.4) mg/dl Total Bilirubin (0.2-1) mg/dl Direct Bilirubin (0-0.2) mg/dl AST (15-37) U/L ALT (12-78) U/L Alkaline Phosphatase (45-117) U/L Total Creatine Kinase (26-192) U/L Troponin I (0-0.045) ng/ml Total Protein (6.4-8.2) gm/dl Albumin (3.4-5.0) gm/dl Globulin (2.5-4.0) gm/dl Albumin/Globulin Ratio (0.9-2) Lipase (73-393) U/L Beta-Hydroxybutyric Acd (0.2-2.81) mg/dl Procalcitonin (0-0.5) ng/ml TSH (0.300-4.500) uIu/ml Urine Color Urine Appearance (Clear) Urine pH (4.5-7.5) Ur Specific [place] (1.000-1.030) Urine Protein (Negative) Urine Glucose (UA) (Negative) Urine Ketones (Negative) Urine Blood (Negative) Urine Nitrite (Negative) Urine Bilirubin (Negative) Urine Urobilinogen (Negative) Ur Leukocyte Esterase (Negative) Urine WBC (Auto) (0-5) /hpf Urine RBC (Auto) (0-4) /hpf U Hyaline Cast (Auto) (0-5) /lpf U Epithel Cells (Auto) (0-5) /lpf Urine Bacteria (Auto) (Negative) Urine Yeast (None Prsent) COVID-19 Eval Order SARS-CoV-2 (PCR) (Negative) 10/18/20 10/18/20 10/18/20 Range/Units 14:25 14:25 14:25 WBC (4.8-10.8) K/uL RBC (4.2-5.4) M/uL Hgb (12.0-16.0) g/dL POC Hgb (12.0-16.0) g/dl Hct (37-47) % POC Hct (37-47) % MCV (80-100) fL MCH (25-34) pg MCHC (32-36) g/dL RDW Std Deviation (36.4-46.3) fL RDW Coeff of Travis (11.5-14.5) % Plt Count (130-400) K/uL MPV (7.4-10.4) fL Immature Gran % (Auto) % Neut % (Auto) % Lymph % (Auto) % [place] % (Auto) % Eos % (Auto) % Baso % (Auto) % Neut # (Auto) (1.4-6.5) K/uL Lymph # (Auto) (1.2-3.4) K/uL [place] # (Auto) (0.11-0.59) K/uL Eos # (Auto) (0-0.5) K/uL Baso # (Auto) (0-0.2) K/uL Immature Gran # (Auto) (0.00-0.02) K/uL Echinocytes PT (9.0-12.0) Seconds INR (0.9-1.1) APTT (21.0-31.0) Seconds PTT Ratio ABG pH (7.35-7.45) ABG pCO2 (35-46) mmHg ABG pO2 (80-95) mmHg ABG HCO3 (19-24) mmol/L ABG O2 Saturation (90-95) % ABG Base Excess (-9-1.8) mEq/L Shahram Test (Pos) VBG pH (7.36-7.41) VBG pCO2 (38-50) mmHg VBG pO2 mmHg VBG HCO3 mmol/L VBG O2 Saturation % VBG Base Excess mEq/L Barometric Pressure mm/Hg Oxygen Given POC Sodium (135-144) mmol/L Sodium 138 (136-145) mmol/L POC Potassium (3.3-5.0) mmol/L Potassium 2.6 L (3.5-5.1) mmol/L POC Chloride (101-112) mmol/L Chloride 104 (98-107) mmol/L Carbon Dioxide 8 L* (21-32) mmol/L POC Total CO2 (24-31) mmol/L Anion Gap 26.0 H (3-11) POC Anion Gap (16-25) mmol/L POC BUN (7-18) mg/dl BUN 29 H (7-18) mg/dl Creatinine 1.23 H (0.6-1.2) mg/dl POC Creatinine (0.6-1.3) mg/dl Est Cr Clr Drug Dosing Not Reportable Est GFR ( Amer) 59.2 ml/min Est GFR (Non-Af Amer) 51.1 ml/min BUN/Creatinine Ratio 23.4 H (10-20) Glucose 537 H* (70-99) mg/dl POC Glucose (70-99) mg/dl POC Glucose (other) (70-99) mg/dl Osmolality 345 H (280-300) mOsm/kg Lactate (0.4-2.0) mmol/L Calcium 12.6 H* (8.5-10.1) mg/dl POC Ioniz Calcium Sesar (1.12-1.32) mmol/l Phosphorus 3.2 (2.5-4.9) mg/dl Magnesium 2.3 (1.8-2.4) mg/dl Total Bilirubin 0.5 (0.2-1) mg/dl Direct Bilirubin < 0.1 (0-0.2) mg/dl AST 11 L (15-37) U/L ALT 17 (12-78) U/L Alkaline Phosphatase 222 H (45-117) U/L Total Creatine Kinase 98 (26-192) U/L Troponin I < 0.015 (0-0.045) ng/ml Total Protein 8.9 H (6.4-8.2) gm/dl Albumin 2.2 L (3.4-5.0) gm/dl Globulin 6.7 H (2.5-4.0) gm/dl Albumin/Globulin Ratio 0.3 L (0.9-2) Lipase 219 (73-393) U/L Beta-Hydroxybutyric Acd 107.88 H (0.2-2.81) mg/dl Procalcitonin 0.79 H (0-0.5) ng/ml TSH 0.515 (0.300-4.500) uIu/ml Urine Color Urine Appearance (Clear) Urine pH (4.5-7.5) Ur Specific [place] (1.000-1.030) Urine Protein (Negative) Urine Glucose (UA) (Negative) Urine Ketones (Negative) Urine Blood (Negative) Urine Nitrite (Negative) Urine Bilirubin (Negative) Urine Urobilinogen (Negative) Ur Leukocyte Esterase (Negative) Urine WBC (Auto) (0-5) /hpf Urine RBC (Auto) (0-4) /hpf U Hyaline Cast (Auto) (0-5) /lpf U Epithel Cells (Auto) (0-5) /lpf Urine Bacteria (Auto) (Negative) Urine Yeast (None Prsent) COVID-19 Eval Order SARS-CoV-2 (PCR) (Negative) 10/18/20 10/18/20 10/18/20 Range/Units 14:30 14:43 14:43 WBC (4.8-10.8) K/uL RBC (4.2-5.4) M/uL Hgb (12.0-16.0) g/dL POC Hgb 14.3 (12.0-16.0) g/dl Hct (37-47) % POC Hct 42 (37-47) % MCV (80-100) fL MCH (25-34) pg MCHC (32-36) g/dL RDW Std Deviation (36.4-46.3) fL RDW Coeff of Travis (11.5-14.5) % Plt Count (130-400) K/uL MPV (7.4-10.4) fL Immature Gran % (Auto) % Neut % (Auto) % Lymph % (Auto) % [place] % (Auto) % Eos % (Auto) % Baso % (Auto) % Neut # (Auto) (1.4-6.5) K/uL Lymph # (Auto) (1.2-3.4) K/uL [place] # (Auto) (0.11-0.59) K/uL Eos # (Auto) (0-0.5) K/uL Baso # (Auto) (0-0.2) K/uL Immature Gran # (Auto) (0.00-0.02) K/uL Echinocytes PT (9.0-12.0) Seconds INR (0.9-1.1) APTT (21.0-31.0) Seconds PTT Ratio ABG pH (7.35-7.45) ABG pCO2 (35-46) mmHg ABG pO2 (80-95) mmHg ABG HCO3 (19-24) mmol/L ABG O2 Saturation (90-95) % ABG Base Excess (-9-1.8) mEq/L Shahram Test (Pos) VBG pH (7.36-7.41) VBG pCO2 (38-50) mmHg VBG pO2 mmHg VBG HCO3 mmol/L VBG O2 Saturation % VBG Base Excess mEq/L Barometric Pressure mm/Hg Oxygen Given POC Sodium 140 (135-144) mmol/L Sodium (136-145) mmol/L POC Potassium 2.7 L (3.3-5.0) mmol/L Potassium (3.5-5.1) mmol/L POC Chloride 109 (101-112) mmol/L Chloride (98-107) mmol/L Carbon Dioxide (21-32) mmol/L POC Total CO2 8 L* (24-31) mmol/L Anion Gap (3-11) POC Anion Gap 27.0 H (16-25) mmol/L POC BUN 30 H (7-18) mg/dl BUN (7-18) mg/dl Creatinine (0.6-1.2) mg/dl POC Creatinine 0.5 L (0.6-1.3) mg/dl Est Cr Clr Drug Dosing Est GFR ( Amer) ml/min Est GFR (Non-Af Amer) ml/min BUN/Creatinine Ratio (10-20) Glucose (70-99) mg/dl POC Glucose (70-99) mg/dl POC Glucose (other) 539 H* (70-99) mg/dl Osmolality (280-300) mOsm/kg Lactate (0.4-2.0) mmol/L Calcium (8.5-10.1) mg/dl POC Ioniz Calcium Sesar 1.62 H* (1.12-1.32) mmol/l Phosphorus (2.5-4.9) mg/dl Magnesium (1.8-2.4) mg/dl Total Bilirubin (0.2-1) mg/dl Direct Bilirubin (0-0.2) mg/dl AST (15-37) U/L ALT (12-78) U/L Alkaline Phosphatase (45-117) U/L Total Creatine Kinase (26-192) U/L Troponin I (0-0.045) ng/ml Total Protein (6.4-8.2) gm/dl Albumin (3.4-5.0) gm/dl Globulin (2.5-4.0) gm/dl Albumin/Globulin Ratio (0.9-2) Lipase (73-393) U/L Beta-Hydroxybutyric Acd (0.2-2.81) mg/dl Procalcitonin (0-0.5) ng/ml TSH (0.300-4.500) uIu/ml Urine Color Urine Appearance (Clear) Urine pH (4.5-7.5) Ur Specific [place] (1.000-1.030) Urine Protein (Negative) Urine Glucose (UA) (Negative) Urine Ketones (Negative) Urine Blood (Negative) Urine Nitrite (Negative) Urine Bilirubin (Negative) Urine Urobilinogen (Negative) Ur Leukocyte Esterase (Negative) Urine WBC (Auto) (0-5) /hpf Urine RBC (Auto) (0-4) /hpf U Hyaline Cast (Auto) (0-5) /lpf U Epithel Cells (Auto) (0-5) /lpf Urine Bacteria (Auto) (Negative) Urine Yeast (None Prsent) COVID-19 Eval Order Covid19 at [facility] SARS-CoV-2 (PCR) NEGATIVE (Negative) 10/18/20 10/18/20 10/18/20 Range/Units 15:17 15:17 15:39 WBC (4.8-10.8) K/uL RBC (4.2-5.4) M/uL Hgb (12.0-16.0) g/dL POC Hgb (12.0-16.0) g/dl Hct (37-47) % POC Hct (37-47) % MCV (80-100) fL MCH (25-34) pg MCHC (32-36) g/dL RDW Std Deviation (36.4-46.3) fL RDW Coeff of Travis (11.5-14.5) % Plt Count (130-400) K/uL MPV (7.4-10.4) fL Immature Gran % (Auto) % Neut % (Auto) % Lymph % (Auto) % [place] % (Auto) % Eos % (Auto) % Baso % (Auto) % Neut # (Auto) (1.4-6.5) K/uL Lymph # (Auto) (1.2-3.4) K/uL [place] # (Auto) (0.11-0.59) K/uL Eos # (Auto) (0-0.5) K/uL Baso # (Auto) (0-0.2) K/uL Immature Gran # (Auto) (0.00-0.02) K/uL Echinocytes PT (9.0-12.0) Seconds INR (0.9-1.1) APTT (21.0-31.0) Seconds PTT Ratio ABG pH (7.35-7.45) ABG pCO2 (35-46) mmHg ABG pO2 (80-95) mmHg ABG HCO3 (19-24) mmol/L ABG O2 Saturation (90-95) % ABG Base Excess (-9-1.8) mEq/L Shahram Test (Pos) VBG pH 7.18 L (7.36-7.41) VBG pCO2 25 L (38-50) mmHg VBG pO2 20 mmHg VBG HCO3 9 mmol/L VBG O2 Saturation < 60.0 % VBG Base Excess -17.6 mEq/L Barometric Pressure 732.1 mm/Hg Oxygen Given POC Sodium (135-144) mmol/L Sodium (136-145) mmol/L POC Potassium (3.3-5.0) mmol/L Potassium (3.5-5.1) mmol/L POC Chloride (101-112) mmol/L Chloride (98-107) mmol/L Carbon Dioxide (21-32) mmol/L POC Total CO2 (24-31) mmol/L Anion Gap (3-11) POC Anion Gap (16-25) mmol/L POC BUN (7-18) mg/dl BUN (7-18) mg/dl Creatinine (0.6-1.2) mg/dl POC Creatinine (0.6-1.3) mg/dl Est Cr Clr Drug Dosing Est GFR ( Amer) ml/min Est GFR (Non-Af Amer) ml/min BUN/Creatinine Ratio (10-20) Glucose (70-99) mg/dl POC Glucose (70-99) mg/dl POC Glucose (other) (70-99) mg/dl Osmolality (280-300) mOsm/kg Lactate 2.9 H* (0.4-2.0) mmol/L Calcium (8.5-10.1) mg/dl POC Ioniz Calcium Sesar (1.12-1.32) mmol/l Phosphorus (2.5-4.9) mg/dl Magnesium (1.8-2.4) mg/dl Total Bilirubin (0.2-1) mg/dl Direct Bilirubin (0-0.2) mg/dl AST (15-37) U/L ALT (12-78) U/L Alkaline Phosphatase (45-117) U/L Total Creatine Kinase (26-192) U/L Troponin I (0-0.045) ng/ml Total Protein (6.4-8.2) gm/dl Albumin (3.4-5.0) gm/dl Globulin (2.5-4.0) gm/dl Albumin/Globulin Ratio (0.9-2) Lipase (73-393) U/L Beta-Hydroxybutyric Acd (0.2-2.81) mg/dl Procalcitonin (0-0.5) ng/ml TSH (0.300-4.500) uIu/ml Urine Color Yellow Urine Appearance Clear (Clear) Urine pH 5.0 (4.5-7.5) Ur Specific [place] 1.026 (1.000-1.030) Urine Protein 1+ H (Negative) Urine Glucose (UA) 3+ H (Negative) Urine Ketones 4+ H (Negative) Urine Blood 2+ H (Negative) Urine Nitrite Negative (Negative) Urine Bilirubin Negative (Negative) Urine Urobilinogen Negative (Negative) Ur Leukocyte Esterase Negative (Negative) Urine WBC (Auto) 10-30 H (0-5) /hpf Urine RBC (Auto) 10-30 H (0-4) /hpf U Hyaline Cast (Auto) 0 (0-5) /lpf U Epithel Cells (Auto) >30 H (0-5) /lpf Urine Bacteria (Auto) 1+ H (Negative) Urine Yeast Budding A (None Prsent) COVID-19 Eval Order SARS-CoV-2 (PCR) (Negative) 10/18/20 10/18/20 10/18/20 Range/Units 17:16 17:35 19:39 WBC (4.8-10.8) K/uL RBC (4.2-5.4) M/uL Hgb (12.0-16.0) g/dL POC Hgb (12.0-16.0) g/dl Hct (37-47) % POC Hct (37-47) % MCV (80-100) fL MCH (25-34) pg MCHC (32-36) g/dL RDW Std Deviation (36.4-46.3) fL RDW Coeff of Travis (11.5-14.5) % Plt Count (130-400) K/uL MPV (7.4-10.4) fL Immature Gran % (Auto) % Neut % (Auto) % Lymph % (Auto) % [place] % (Auto) % Eos % (Auto) % Baso % (Auto) % Neut # (Auto) (1.4-6.5) K/uL Lymph # (Auto) (1.2-3.4) K/uL [place] # (Auto) (0.11-0.59) K/uL Eos # (Auto) (0-0.5) K/uL Baso # (Auto) (0-0.2) K/uL Immature Gran # (Auto) (0.00-0.02) K/uL Echinocytes PT (9.0-12.0) Seconds INR (0.9-1.1) APTT (21.0-31.0) Seconds PTT Ratio ABG pH 7.25 L (7.35-7.45) ABG pCO2 12 L (35-46) mmHg ABG pO2 121 H (80-95) mmHg ABG HCO3 5 L (19-24) mmol/L ABG O2 Saturation 98.3 H (90-95) % ABG Base Excess -19.2 L (-9-1.8) mEq/L Shahram Test Pos (Pos) VBG pH (7.36-7.41) VBG pCO2 (38-50) mmHg VBG pO2 mmHg VBG HCO3 mmol/L VBG O2 Saturation % VBG Base Excess mEq/L Barometric Pressure 731.7 mm/Hg Oxygen Given Room Air POC Sodium (135-144) mmol/L Sodium (136-145) mmol/L POC Potassium (3.3-5.0) mmol/L Potassium (3.5-5.1) mmol/L POC Chloride (101-112) mmol/L Chloride (98-107) mmol/L Carbon Dioxide (21-32) mmol/L POC Total CO2 (24-31) mmol/L Anion Gap (3-11) POC Anion Gap (16-25) mmol/L POC BUN (7-18) mg/dl BUN (7-18) mg/dl Creatinine (0.6-1.2) mg/dl POC Creatinine (0.6-1.3) mg/dl Est Cr Clr Drug Dosing Est GFR ( Amer) ml/min Est GFR (Non-Af Amer) ml/min BUN/Creatinine Ratio (10-20) Glucose (70-99) mg/dl POC Glucose 443 H* (70-99) mg/dl POC Glucose (other) (70-99) mg/dl Osmolality (280-300) mOsm/kg Lactate 1.8 (0.4-2.0) mmol/L Calcium (8.5-10.1) mg/dl POC Ioniz Calcium Sesar (1.12-1.32) mmol/l Phosphorus (2.5-4.9) mg/dl Magnesium (1.8-2.4) mg/dl Total Bilirubin (0.2-1) mg/dl Direct Bilirubin (0-0.2) mg/dl AST (15-37) U/L ALT (12-78) U/L Alkaline Phosphatase (45-117) U/L Total Creatine Kinase (26-192) U/L Troponin I (0-0.045) ng/ml Total Protein (6.4-8.2) gm/dl Albumin (3.4-5.0) gm/dl Globulin (2.5-4.0) gm/dl Albumin/Globulin Ratio (0.9-2) Lipase (73-393) U/L Beta-Hydroxybutyric Acd (0.2-2.81) mg/dl Procalcitonin (0-0.5) ng/ml TSH (0.300-4.500) uIu/ml Urine Color Urine Appearance (Clear) Urine pH (4.5-7.5) Ur Specific [place] (1.000-1.030) Urine Protein (Negative) Urine Glucose (UA) (Negative) Urine Ketones (Negative) Urine Blood (Negative) Urine Nitrite (Negative) Urine Bilirubin (Negative) Urine Urobilinogen (Negative) Ur Leukocyte Esterase (Negative) Urine WBC (Auto) (0-5) /hpf Urine RBC (Auto) (0-4) /hpf U Hyaline Cast (Auto) (0-5) /lpf U Epithel Cells (Auto) (0-5) /lpf Urine Bacteria (Auto) (Negative) Urine Yeast (None Prsent) COVID-19 Eval Order SARS-CoV-2 (PCR) (Negative) 10/18/20 Range/Units 19:40 WBC (4.8-10.8) K/uL RBC (4.2-5.4) M/uL Hgb (12.0-16.0) g/dL POC Hgb (12.0-16.0) g/dl Hct (37-47) % POC Hct (37-47) % MCV (80-100) fL MCH (25-34) pg MCHC (32-36) g/dL RDW Std Deviation (36.4-46.3) fL RDW Coeff of Travis (11.5-14.5) % Plt Count (130-400) K/uL MPV (7.4-10.4) fL Immature Gran % (Auto) % Neut % (Auto) % Lymph % (Auto) % [place] % (Auto) % Eos % (Auto) % Baso % (Auto) % Neut # (Auto) (1.4-6.5) K/uL Lymph # (Auto) (1.2-3.4) K/uL [place] # (Auto) (0.11-0.59) K/uL Eos # (Auto) (0-0.5) K/uL Baso # (Auto) (0-0.2) K/uL Immature Gran # (Auto) (0.00-0.02) K/uL Echinocytes PT (9.0-12.0) Seconds INR (0.9-1.1) APTT (21.0-31.0) Seconds PTT Ratio ABG pH (7.35-7.45) ABG pCO2 (35-46) mmHg ABG pO2 (80-95) mmHg ABG HCO3 (19-24) mmol/L ABG O2 Saturation (90-95) % ABG Base Excess (-9-1.8) mEq/L Shahram Test (Pos) VBG pH (7.36-7.41) VBG pCO2 (38-50) mmHg VBG pO2 mmHg VBG HCO3 mmol/L VBG O2 Saturation % VBG Base Excess mEq/L Barometric Pressure mm/Hg Oxygen Given POC Sodium (135-144) mmol/L Sodium 143 (136-145) mmol/L POC Potassium (3.3-5.0) mmol/L Potassium 3.1 L D (3.5-5.1) mmol/L POC Chloride (101-112) mmol/L Chloride 113 H (98-107) mmol/L Carbon Dioxide 8 L* (21-32) mmol/L POC Total CO2 (24-31) mmol/L Anion Gap 22.0 H (3-11) POC Anion Gap (16-25) mmol/L POC BUN (7-18) mg/dl BUN 29 H (7-18) mg/dl Creatinine 1.02 (0.6-1.2) mg/dl POC Creatinine (0.6-1.3) mg/dl Est Cr Clr Drug Dosing 56.6 Est GFR ( Amer) 74.3 ml/min Est GFR (Non-Af Amer) 64.1 ml/min BUN/Creatinine Ratio 28.1 H (10-20) Glucose 403 H* (70-99) mg/dl POC Glucose (70-99) mg/dl POC Glucose (other) (70-99) mg/dl Osmolality (280-300) mOsm/kg Lactate (0.4-2.0) mmol/L Calcium 11.0 H (8.5-10.1) mg/dl POC Ioniz Calcium Sesar (1.12-1.32) mmol/l Phosphorus (2.5-4.9) mg/dl Magnesium (1.8-2.4) mg/dl Total Bilirubin (0.2-1) mg/dl Direct Bilirubin (0-0.2) mg/dl AST (15-37) U/L ALT (12-78) U/L Alkaline Phosphatase (45-117) U/L Total Creatine Kinase (26-192) U/L Troponin I (0-0.045) ng/ml Total Protein (6.4-8.2) gm/dl Albumin (3.4-5.0) gm/dl Globulin (2.5-4.0) gm/dl Albumin/Globulin Ratio (0.9-2) Lipase (73-393) U/L Beta-Hydroxybutyric Acd 81.97 H (0.2-2.81) mg/dl Procalcitonin (0-0.5) ng/ml TSH (0.300-4.500) uIu/ml Urine Color Urine Appearance (Clear) Urine pH (4.5-7.5) Ur Specific [place] (1.000-1.030) Urine Protein (Negative) Urine Glucose (UA) (Negative) Urine Ketones (Negative) Urine Blood (Negative) Urine Nitrite (Negative) Urine Bilirubin (Negative) Urine Urobilinogen (Negative) Ur Leukocyte Esterase (Negative) Urine WBC (Auto) (0-5) /hpf Urine RBC (Auto) (0-4) /hpf U Hyaline Cast (Auto) (0-5) /lpf U Epithel Cells (Auto) (0-5) /lpf Urine Bacteria (Auto) (Negative) Urine Yeast (None Prsent) COVID-19 Eval Order SARS-CoV-2 (PCR) (Negative) Administered Medications Discontinued Medications Sodium Chloride (Nss 1000ml) 1,000 mls @ 999 mls/hr IV .Q1H1M [facility] Stop: 10/18/20 16:46 Last Infusion: 10/18/20 17:11 Dose: 0 mls/hr Documented by: [id number] Admin: 10/18/20 16:09 Dose: 999 mls/hr Documented by: [id number] Sodium Chloride (Nss 1000ml) 1,000 mls @ 999 mls/hr IV .Q1H1M [facility] Stop: 10/18/20 15:46 Last Infusion: 10/18/20 19:13 Dose: 999 mls/hr Documented by: [id number] Admin: 10/18/20 16:14 Dose: 999 mls/hr Documented by: [id number] Potassium Chloride (K Missael / Wtr) 10 meq in 100 mls @ 100 mls/hr IV Q1H [facility] Stop: 10/18/20 16:59 Last Infusion: 10/18/20 19:51 Dose: 100 mls/hr Documented by: [id number] Admin: 10/18/20 18:16 Dose: 100 mls/hr Documented by: [id number] Infusion: 10/18/20 17:09 Dose: 100 mls/hr Documented by: [id number] Admin: 10/18/20 16:09 Dose: 100 mls/hr Documented by: [id number] Piperacillin Sod/Tazobactam Sod (Zosyn) 4.5 gm in 120 mls @ 240 mls/hr IV NOW ONE Stop: 10/18/20 15:22 Last Infusion: 10/18/20 17:11 Dose: 0 mls/hr Documented by: [id number] Admin: 10/18/20 16:10 Dose: 240 mls/hr Documented by: [id number] Potassium Chloride (K Missael / Wtr) 10 meq in 100 mls @ 100 mls/hr IV Q1H [facility] Stop: 10/18/20 18:29 Last Admin: 10/18/20 20:21 Dose: 100 mls/hr Documented by: [id number] Infusion: 10/18/20 20:20 Dose: 100 mls/hr Documented by: [id number] Admin: 10/18/20 19:20 Dose: 100 mls/hr Documented by: [id number] Vancomycin HCl 1,750 mg/ (Sodium Chloride) 535 mls @ 200 mls/hr IV NOW ONE Stop: 10/18/20 19:32 Last Infusion: 10/18/20 20:38 Dose: 200 mls/hr Documented by: [id number] Admin: 10/18/20 17:44 Dose: 200 mls/hr Documented by: [id number] Parenteral Electrolytes (Normosol-R) 1,000 mls @ 250 mls/hr IV .Q4H [facility] Stop: 11/17/20 17:44 Last Admin: 10/18/20 18:42 Dose: 250 mls/hr Documented by: [id number] Potassium Chloride (K Missael / Wtr) 10 meq in 100 mls @ 100 mls/hr IV Q1H [facility] Stop: 10/18/20 20:59 Last Admin: 10/18/20 21:53 Dose: 100 mls/hr Documented by: [id number] Infusion: 10/18/20 21:24 Dose: 100 mls/hr Documented by: [id number] Admin: 10/18/20 20:24 Dose: 100 mls/hr Documented by: [id number] Ioversol (Optiray 320 100ml) 94 ml IV ONCE ONE Stop: 10/18/20 16:42 Last Admin: 10/18/20 16:41 Dose: 94 ml Documented by: [id number] Labetalol HCl (Labetalol Hcl Iv 5 Mg/Ml 20ml) 10 mg IV NOW STA Stop: 10/18/20 19:56 Last Admin: 10/18/20 20:16 Dose: Not Given Documented by: [id number] Imaging Data Radiologist's Impression: Chest X-Ray 10/18/20 14:46 SINGLE VIEW CHEST CLINICAL HISTORY: Sepsis. FINDINGS: An AP, portable, upright chest radiograph is compared to study dated 08/28/2019. Correlation is made with chest CT dated 07/24/2007. The examination is degraded by portable technique and patient rotation. The heart is top normal for projection noting atherosclerotic calcification of the thoracic aorta. There are low lung volumes with mild elevation of the right hemidiaphragm and bibasilar atelectasis. No airspace consolidation or large pleural effusion is identified. No pneumothorax is seen. The skeletal structures are osteopenic. The bony thorax is grossly intact. IMPRESSION: No acute cardiopulmonary abnormality. ACT 112: Negative or not required by law. Electronically signed by: Navneet Darden M.D. 10/18/2020 5:13 PM Abdomen/Pelvis CT 10/18/20 14:48 CT SCAN OF THE ABDOMEN AND PELVIS WITH IV CONTRAST CLINICAL HISTORY: Generalized abdominal pain. Sepsis. COMPARISON STUDY: Abdominal CT dated 08/28/2019. TECHNIQUE: Following the IV administration of 94 cc of Optiray 320, CT scan of the abdomen and pelvis is performed from the lung bases to the proximal femora. Images are reviewed in the axial, sagittal, and coronal planes. IV contrast was administered without complication. A dose lowering technique was utilized adhering to the principles of ALARA. The examination is degraded by streak artifact from the arms which could not be elevated above the abdomen. There is also motion artifact. FINDINGS: Lung bases: The heart is normal in size and without pericardial effusion. There are coronary artery calcifications. The lung bases are clear. Liver: The contrast-enhanced liver is normal in size, contour, and attenuation. There is no intrahepatic biliary ductal dilatation. The hepatic veins and portal veins are patent. Gallbladder: Surgically absent noting clips in the gallbladder fossa. Spleen: Normal in size and attenuation. Pancreas: Moderately atrophic and grossly unremarkable. Adrenal glands: Nodular thickening of the adrenal glands is similar to previous. Kidneys: The contrast enhanced kidneys are normal in size and without hydronephrosis. The kidneys enhance symmetrically. Abdominal vasculature: The abdominal aorta is normal in course and caliber noting moderate to advanced atherosclerotic calcification. Bowel: There is no bowel obstruction. There is a small duodenal diverticulum. The appendix is well-visualized and normal. A hyperdense structure is noted within the cecum on image # #[id number]. Peritoneum: There is no intraperitoneal free air or abdominal ascites. Lymphadenopathy: None. Pelvic viscera: The bladder is decompressed around a Aguilar catheter and cannot be evaluated. The uterus and adnexa are normal as visualized. Skeletal structures: The skeletal structures are osteopenic. There is mild to moderate lumbosacral spondylosis. No lytic or blastic lesions are seen. IMPRESSION: 1. Streak and motion degraded examination. 2. No acute infectious or inflammatory findings are identified in the abdomen or pelvis. 3. There is no bowel obstruction. 4. Additional findings as above. ACT 112: Negative or not required by law. Electronically signed by: Navneet Darden M.D. 10/18/2020 5:01 PM Ankle X-Ray 10/18/20 14:48 LEFT ANKLE 2 VIEWS CLINICAL HISTORY: Left lower external the ulcer. FINDINGS: Crosstable AP and lateral radiographs of the left ankle are obtained. No prior studies are available for comparison at the time of dictation. The skeletal structures are osteopenic. No fracture is identified. No bony erosion or periostitis is seen. The ankle mortise is intact. There is no joint effusion. There are small dorsal and large plantar calcaneal enthesophytes. A soft tissue ulceration is suggested posterior to the ankle joint with soft tissue edema and foci of subcutaneous gas. Soft tissue gas is seen more proximally into the calf on the AP view. No radiodense foreign body is identified. There is advanced atherosclerotic calcification of the regional arteries. IMPRESSION: 1. No acute bony abnormality is identified. 2. Dorsal ulceration and soft tissue edema as above. Subcutaneous gas indicates soft tissue infection and clinical correlation will be required. 3. Osteopenia and degenerative change as above. Electronically signed by: Navneet Darden M.D. 10/18/2020 5:[address] 10/18/20 14:48 CT head/brain wo con CLINICAL HISTORY: 50 years-old Female with confusion, sepsis, h/o cva. Acutely altered mental status with sepsis TECHNIQUE: Multiple axial CT images of the head were obtained without contrast. A dose lowering technique was utilized adhering to the principles of ALARA. CT DOSE: 1118.13 mGy.cm COMPARISON: None. FINDINGS: Motion degraded exam. No acute intracranial hemorrhage, midline shift, intracranial mass, hydrocephalus, territorial ischemia or abnormal extra-axial collection. Large chronic right MCA infarct with encephalomalacia and ex vacuo ventriculomegaly of the right lateral ventricle. Associated wallerian degeneration of the right thalamus and midbrain. White matter hypodensities suggestive of chronic microvascular ischemic disease. The calvarium is intact. Mastoid air cells are clear. Moderate mucosal thickening of the left maxillary sinus. Unremarkable soft tissues and orbits. IMPRESSION: 1. Motion degraded exam without acute intracranial abnormality. 2. Large chronic right MCA territorial infarct. ACT 112: Negative or not required by law. The above report was generated using voice recognition software. It may contain grammatical, syntax or spelling errors. Electronically signed by: Josue Rodriguez M.D. 10/18/2020 4:53 PM Discharge Plan Visit Data Chief Complaint: Stroke/CVA Symptoms Stated Complaint: DECREASED MENTAL STATUS, ED Provider: Esa Parada Discharge Problem: Sepsis, DKA (diabetic ketoacidosis), UTI (urinary tract infection), Heel ulceration, Elevated lactic acid level, Hypokalemia, Acute metabolic encephalopathy Patient Disposition: Admitted As Inpatient Discharge Instructions Interventions: ED Discharge Assessment Last Done: 10/18/20 21:06 Discharge Problem: Sepsis Qualifiers: Sepsis type: sepsis due to unspecified organism Sepsis acute organ dysfunction status: with acute organ dysfunction Severe sepsis acute organ dysfunction type: encephalopathy Severe sepsis shock status: without septic shock Qualified Code(s): A41.9 - Sepsis, unspecified organism DKA (diabetic ketoacidosis) Qualifiers: Diabetes mellitus type: other specified (including SALO) Diabetes mellitus complication detail: without coma Qualified Code(s): E13.10 - Other specified diabetes mellitus with ketoacidosis without coma UTI (urinary tract infection) Qualifiers: Urinary tract infection type: acute cystitis Hematuria presence: with hematuria Qualified Code(s): N30.01 - Acute cystitis with hematuria Heel ulceration Qualifiers: Laterality: left Non-pressure ulcer stage: unspecified non-pressure ulcer stage Qualified Code(s): L97.429 - Non-pressure chronic ulcer of left heel and midfoot with unspecified severity
[2020-10-18] MEDS: NORMOSOL-R 1,000 ML IV SCH ×2 (18:42→22:46)
[2020-10-18] MEDS ORDERED: LABETALOL HCL IV 5 MG/ML 20ML IV STA (19:55)
[2020-10-18 19:58] LABS: Allen Test Pos (Pos); Base Excess ABG -19.2 mEq/L (-9-1.8); HCO3 ABG 5 mmol/L (19-24); Oxygen Saturation ABG 98.3 % (90-95); PCO2 ABG 12 mmHg (35-46); PO2 ABG 121 mmHg (80-95); pH ABG 7.25 (7.35-7.45)
[2020-10-18 20:13] LABS: BUN Creatinine Ratio 28.1 (10-20); Creatinine Clr Calc Pharmacy 56.6 ml/min; Est GFR (African American) 74.3 ml/min; Est GFR (Non-African American) 64.1 ml/min
--- NOTE | 2020-10-18 20:37 | History & Physical Report ---
Date of Service October 18, 2020 Assessment & Plan (1) DKA (diabetic ketoacidosis): Placed on a DKA protocol - insulin drip, IVF, serial electrolytes - assigned o ICU - will consider bicarb based on f/u VBG. (2) Sepsis: Has a significant heel ulcer and cellulitis/folliculitis over her back. Lactic is elevated and WBC is impressive, however, she is afebrile. Placed on Vanc/Zosyn. BP has been labile but she has not been hypotensive. (3) Hypokalemia: Repleted - repeat BMP pending (4) PVD (peripheral vascular disease): She is pending an arterial US of the RLE due to her ulcer and lack of pulse. (5) Stroke: Cont statin, Plavix Admission and Anticipated Discharge Date Admission Date: 10/18/20 Anticipated date of discharge: 10/22/20 History of Present Illness Chief Complaint: DKA Primary Care Provider: YON Singh 50 y/o F Hx HTN, HLD, IDDM, R MCA CVA. Presents with decreased mentation, nausea, vomiting, heal ulcer and cellulitis on her back. Her ability to communicate is limited at baseline per her who brought her in. He states that the pt normally follows commands and can converse. She is unable to de either on arrival. Labs are consistent with DKA, hypokalemia and she has a WBC count of 48. A CT head was negative for acute findings. Imaging of the heal is consistent with soft tissue infection and concerning for possible gas. Allergies Allergy/AdvReac Type Severity Reaction Status Date / Time No Known Allergies Allergy Verified 10/18/20 18:10 Home Medications Medication Instructions Recorded Confirmed Type Toviaz 8 mg PO DAILY 08/28/19 10/18/20 History aspirin 81 mg PO DAILY 08/28/19 10/18/20 History atorvastatin 40 mg PO DAILY 08/28/19 10/18/20 History clopidogrel [Plavix] 75 mg PO DAILY 08/28/19 10/18/20 History insulin aspart U-100 [Novolog 0 unit SUBCUT ACHS 08/28/19 10/18/20 History Flexpen U-100 Insulin] lisinopril 20 mg PO DAILY 08/28/19 10/18/20 History metformin 500 mg PO BID 08/28/19 10/18/20 History metoprolol succinate 50 mg PO DAILY 08/28/19 10/18/20 History pediatric multivitamin 2 tab PO DAILY 08/28/19 10/18/20 History Lantus Solostar U-100 Insulin 50 unit SUBCUT BID #1 pen 09/01/19 10/18/20 Rx Past Med/Surg History Medical History Chronic hypertension Diabetes Right middle cerebral artery stroke Surgical History History of cholecystectomy Social History Smoking Status: Never smoker Hx Alcohol Use: No Hx Substance Use: No Preferred Language: Swedish Beliefs That Will Affect Care: None Current Living Situation: Spouse Feels Safe at Home: Yes Assistive Devices: None Review of Systems Review of Systems: Unobtainable due to cognitive status The pt's brought her in due to decreased mentation. Physical Exam Physical Exam: General: Uncommunicative, favoring her L side, no evidence of distress. ENT: Would not open mouth for exam Eyes: MADELEINE, EOMI Head and neck: Normocephalic, atraumatic, No JVD Chest/heart: S1,2, RRR, no murmurs, no gallops Lungs: Effort is limited - no overt crackles Abdomen: Nontender, nondistended, BS+ Neuro: Chronic L paresis - per records Musculoskeletal: No joint inflammation, muscle tenderness, FROM Skin: 3-4" ulcer L heel w/purulent discharge - there is cellulitis or folliculitis over the pt's back Extremities: There is poor capillary return on the L. Could not palpate pulses - pulse on R apparent with a Doppler Results & Data Results & Data ([facility]) Vital Signs (Past 12 Hours) Vital Signs Temp Pulse Resp BP Pulse Ox 10/18/20 20:00 100 H 23 99 10/18/20 19:52 101 H 17 95/78 L 100 10/18/20 19:51 101 H 21 80/43 L 100 10/18/20 19:50 101 H 21 100 10/18/20 19:20 102 H 23 10/18/20 19:10 101 H 17 100 10/18/20 19:01 100 H 19 205/110 H 100 10/18/20 19:00 101 H 22 99 10/18/20 18:50 101 H 24 100 10/18/20 18:40 100 H 24 100 10/18/20 18:31 97 H 22 100 10/18/20 18:30 96 H 25 H 147/98 H 100 10/18/20 18:20 94 H 20 100 10/18/20 18:10 92 H 21 100 10/18/20 18:01 91 H 20 100 10/18/20 18:00 91 H 20 140/76 100 10/18/20 17:50 92 H 20 100 10/18/20 17:40 96 H 20 100 10/18/20 17:31 97 H 183/96 H 10/18/20 17:30 97 H 10/18/20 17:01 96 H 157/89 H 100 10/18/20 16:30 96 H 17 159/84 H 100 10/18/20 16:25 97.9 F 20 96 10/18/20 16:14 96 H 19 176/82 H 100 10/18/20 15:01 98 H 21 167/70 H 10/18/20 14:30 104 H 25 H 135/102 H 10/18/20 14:10 103 H 21 100 10/18/20 14:00 103 H 21 157/86 H 100 10/18/20 13:47 107 H 25 H 152/91 H 99 10/18/20 13:41 106 H 22 148/117 H 100 PG Care Time/CCT Total # of Minutes Spent Total Time Spent with Patient: Total time for this admit including review of labs, meds, imaging, records - discussion with family and ER attending, including critical care time - 63 min Coding Level of Care Code 32016 Initial Inpt Care Lvl 3 Diagnoses DKA (diabetic ketoacidosis) E11.10 Sepsis A41.9 Hypokalemia E87.6 PVD (peripheral vascular disease) I73.9 Stroke I63.9
[2020-10-18 20:40] LABS: Beta-Hydroxybutyrate 81.97 mg/dl (0.2-2.81)
[2020-10-18 20:47] LABS: Potassium 3.1 mmol/L (3.5-5.1)
[2020-10-18] MEDS ORDERED: DKA GOAL RANGE 150-250 mg/dl ONE (21:42)
[2020-10-18] MEDS ORDERED: INSULIN GLARGINE SOLOSTAR 100 UNITS/ML 3 ML PEN SQ SCH (21:42)
[2020-10-18] MEDS ORDERED: ICU PROTOCOL FOR HYPERGLYCEMIA PRN (21:42)
[2020-10-18] MEDS ORDERED: NSS + 20MEQ KCL 20 MEQ/1,000 ML BAG IV SCH (21:42)
[2020-10-18] MEDS ORDERED: INSULIN ASPART 100 UNITS/ML 3 ML PEN SC SCH (21:42)
[2020-10-18] MEDS ORDERED: STAT IV Infusion **Titration per Protocol STA (21:42)
[2020-10-18] MEDS ORDERED: INSULIN REGULAR 250 UNITS in SODIUM CHLORIDE 0.9% 247.5 ML IV SCH ×2 (21:42→23:15)
--- NOTE | 2020-10-18 21:43 | Surgery Consultation ---
Date of Consultation October 18, 2020 Assessment & Plan (1) Heel ulceration: Patient is noted to have a left heel ulceration which is likely a polymicrobial infection due to poorly controlled diabetes. We recommend proceeding as follows: Recommend treating with broad-spectrum antibiotics. The patient is receiving vancomycin and Zosyn Due to the proximity of this wound to the patient's ankle if any surgical debridement is to be undertaken this would be best performed by either orthopedics or podiatry. 1 could also consider vascular surgery. At the present time there is no crepitus noted in the soft tissue and the patient does not have obvious signs of necrotizing fasciitis however we do not have any advanced imaging of the patient's extremity. Consideration could be given to obtaining either a CT scan or MRI of this extremity for further evaluation. I have discussed the case with the ICU staff and have recommended the above measures. General surgery will follow from the periphery. History of Present Illness Reason for Consultation: Foot wound at the left lower extremity Attending Physician: Barrie Pennington MD History of Present Illness This is a 50-year-old female who presented to the emergency department due to altered mental status and strokelike symptoms. Due to the patient's clinical condition she was unable to participate in history of present illness or review of systems. History of present illness information was obtained from chart review as well as discussion with the ICU staff. According to reports from staff this patient presented with altered mental status along with nausea and vomiting. Upon presentation to the emergency department she had labs consistent with DKA. She was also noted to have a left heel ulcer as well as cellulitis on her back and left lower extremity. Labs and imaging were performed which I independently reviewed. A chest x-ray showed no evidence of pneumonia, CHF, or pneumothorax. CT scan of the abdomen and pelvis showed no acute infectious or inflammatory findings in the abdomen or pelvis. There is also no evidence of bowel obstruction. There is no evidence of intra-abdominal or intraperitoneal free air. CT scan of the patient's head showed a large right middle cerebral artery territory infarct that was chronic in nature. Finally the patient had an x-ray of her left ankle that showed a dorsal ulcer and soft tissue edema posterior to the ankle joint with a small foci of subcutaneous gas. Labs were performed her white blood cell count was noted be 47.9. Her hemoglobin, hematocrit, were within normal range. Platelet count was elevated at 844,000. An ABG showed a pH of 7.25 with a PCO2 of 12, a PO2 of 121 and a bicarb level of 5. Chemistry profile showed sodium was 143, potassium 3.1, BUN was 30, and creatinine was 1.0. Her anion gap was noted to be 22. Her glucose levels noted to have been 403. Lactate level was not e levated. At the time of my interview the patient was obtunded at bed and unable to participate with questioning as noted above. Allergies Allergy/AdvReac Type Severity Reaction Status Date / Time No Known Allergies Allergy Verified 10/18/20 18:10 Home Medications Medication Instructions Recorded Confirmed Type Toviaz 8 mg PO DAILY 08/28/19 10/18/20 History aspirin 81 mg PO DAILY 08/28/19 10/18/20 History atorvastatin 40 mg PO DAILY 08/28/19 10/18/20 History clopidogrel [Plavix] 75 mg PO DAILY 08/28/19 10/18/20 History insulin aspart U-100 [Novolog 0 unit SUBCUT ACHS 08/28/19 10/18/20 History Flexpen U-100 Insulin] lisinopril 20 mg PO DAILY 08/28/19 10/18/20 History metformin 500 mg PO BID 08/28/19 10/18/20 History metoprolol succinate 50 mg PO DAILY 08/28/19 10/18/20 History pediatric multivitamin 2 tab PO DAILY 08/28/19 10/18/20 History Lantus Solostar U-100 Insulin 50 unit SUBCUT BID #1 pen 09/01/19 10/18/20 Rx Patient History Medical History Chronic hypertension Diabetes Right middle cerebral artery stroke Surgical History History of cholecystectomy Social History Smoking Status: Never smoker Hx Alcohol Use: No Hx Substance Use: No Preferred Language: Irish Beliefs That Will Affect Care: None Current Living Situation: Spouse Feels Safe at Home: Yes Assistive Devices: None Review of Systems Review of Systems: Full review of systems was attempted but unobtainable due to the clinical status of the patient. Physical Exam Physical Exam: Patient's left lower extremity was examined. The patient did have approximately 4 cm x 6 cm area of ulceration on the left medial malleolus. There is some purulent material as well as some black eschar noted in this area. There is some small amount of surrounding erythema of this area. I did not appreciate any blistering and I did not appreciate any crepitus in the soft tissue surrounding this area or in the calf muscle. There is no lymphatic streaking at the time of my exam. Patient's pedal pulses were unpalpable. A Doppler was obtained and patient did not have a dopplerable posterior tibial pulse but she did have a faintly dopplerable dorsalis pedis pulse. Her foot was noted to be cool with delayed capillary refill but her foot was not mottled. Respiratory: no respiratory distress and no labored breathing Cardiovascular: Rate/Rhythm: regular rate and regular rhythm Skin: Please see above for description of patient's left lower extremity. Patient was also noted to have some cellulitic appearing skin on her back. Neurologic: Neurologic exam unable to be completed due to clinical status of the patient. Results & Data ([facility]) Vital Signs (Past 12 Hours) Vital Signs Temp Pulse Pulse Resp BP BP Pulse Ox 10/18/20 21:25 101 H 19 98/64 L 99 10/18/20 20:50 102 H 23 99 10/18/20 20:40 102 H 20 99 10/18/20 20:30 101 H 25 H 99 10/18/20 20:20 101 H 22 100 10/18/20 20:14 103 H 17 156/117 H 99 10/18/20 20:13 103 H 23 99 10/18/20 20:11 102 H 23 99 10/18/20 20:10 103 H 22 104/90 99 10/18/20 20:00 100 H 23 99 10/18/20 19:52 101 H 17 95/78 L 100 10/18/20 19:51 101 H 21 80/43 L 100 10/18/20 19:50 101 H 21 100 10/18/20 19:20 102 H 23 10/18/20 19:10 101 H 17 100 10/18/20 19:01 100 H 19 205/110 H 100 10/18/20 19:00 101 H 22 99 10/18/20 18:50 101 H 24 100 10/18/20 18:40 100 H 24 100 10/18/20 18:31 97 H 22 100 10/18/20 18:30 96 H 25 H 147/98 H 100 10/18/20 18:20 94 H 20 100 10/18/20 18:10 92 H 21 100 10/18/20 18:01 91 H 20 100 10/18/20 18:00 91 H 20 140/76 100 10/18/20 17:50 92 H 20 100 10/18/20 17:40 96 H 20 100 10/18/20 17:31 97 H 183/96 H 10/18/20 17:30 97 H 10/18/20 17:01 96 H 157/89 H 100 10/18/20 16:30 96 H 17 159/84 H 100 10/18/20 16:25 36.6 C 20 96 10/18/20 16:14 96 H 19 176/82 H 100 10/18/20 15:01 98 H 21 167/70 H 10/18/20 14:30 104 H 25 H 135/102 H 10/18/20 14:10 103 H 21 100 10/18/20 14:00 103 H 21 157/86 H 100 10/18/20 13:47 107 H 25 H 152/91 H 99 10/18/20 13:41 106 H 22 148/117 H 100 PG Care Time/CCT Total # of Minutes Spent Total Time Spent with Patient: Total time spent is greater than 50% in coordination of care (as documented) at patient's floor/unit and/or counseling patient: Coding Level of Care Code 74238 Inpt Consult Level 3 Diagnoses Heel ulceration L97.409
--- NOTE | 2020-10-18 21:51 | Critical Care Consultation ---
Date of Consultation October 18, 2020 Assessment & Plan (1) DKA (diabetic ketoacidosis): Reason Critically Ill: 50-year-old male presents to the ICU with severe DKA and sepsis likely secondary to left heel ulceration. Neuro - Metabolic encephalopathymost likely secondary to DKA. Patient does have history of left MCA stroke with left hemiplegia -CT head without acute intracranial process. Chronic left territory MCA infarct redemonstrated -BUN within normal limits, LFTs unremarkable -Monitor, expect to improve with improvement in DKA Cardiac - Patient was initially hypertensive in the ED which improved with labetalol. She is currently hemodynamically stable without use of vasopressors. Hold patient's home antihypertensives/statin/ASA for the time being as patient is currently n.p.o. due to altered mental status Troponin negative Continuous monitoring on telemetry Respiratory - Tachypnea likely compensatory mechanism of metabolic acidosis as patient has low CO2 with metabolic acidosis demonstrated on VBG Expect to improve with correction of acidosis. Patient is not currently and distress. Monitor GI - N.p.o. RENAL/LYTES - Creatinine within normal limits, monitor routine BMPs Electrolyte abnormalities due to severe dehydration/DKA. Will replete as indicated and continue with fluid resuscitation Lactic acidosisimproved following fluid resuscitation - Foleystrict I's and O's ENDO - DKAimproving. Continue with DKA protocol with insulin drip and fluid resuscitation. No indication for bicarb at this time. -Every 4 BMPs and VBG's. -Follow-up A1c -Can transition to glargine/sliding scale once patient's anion gap closed and bicarb improved HEME - H&H stable, monitor routine CBCs ID - Sepsis?Patient with significant leukocytosis with WBC 48,000 and initial elevated lactate. Procalcitonin mildly elevated at 0.79. Most likely source left heel ulcer versus cellulitis/folliculitis of back. Patient also has evidence of UTI on UA -Blood cultures and urine culture pending. Wound culture pending of the left heel -X-ray of the left ankle showed edema with foci subcutaneous gas. Patient was evaluated by general surgery at the bedside and does not appear to have necrotizing fasciitis on exam. Will obtain more complex imaging once kaleb ent is stable. Patient is not currently displaying any evidence of septic shock. Arterial Doppler of the left lower extremity is pending. Will consider consult to podiatry/Ortho/vascular pending imaging. -Continue broad-spectrum antibiotics Zosyn and vancomycin LINES/IV ACCESS - Peripheral IVs DVT PROPHYLAXIS - SCDs I have personally spent 65 minutes of critical care time in the direct man agement of this patient. This is a life/limb threatening event. This includes time spent evaluating patient, direct bedside care, chart review, placing orders, interpretation of diagnostic studies, discussion with consultants, patient, and family members, as well as other required patient management activities. This time is exclusive of all separately billable procedures, and teaching time and separate from and in addition to any other critical care service time. Thank you for allowing us to participate in the care of this patient. Please refer to my attending physician's documentation for any further recommendations. (2) Sepsis: (3) Heel ulceration: (4) Hypokalemia: (5) Elevated lactic acid level: (6) UTI (urinary tract infection): (7) PVD (peripheral vascular disease): (8) Acute metabolic encephalopathy: (9) Cellulitis: History of Present Illness Attending Physician: Barrie Pennington MD History of Present Illness Patient is a 50-year-old female with complex past medical history including right MCA CVA with left hemiplegia deficit, IDDM, HTN, HLD. Patient presents to the emergency department with altered mental status, nausea and vomiting x3 days, and left heel ulcer and cellulitis on her back. She was noted to have a severe metabolic acidosis consistent with DKA, hypokalemia, and significant leukocytosis with WBC of 48. Her BHA was elevated at 81 and urine positive for ketones. Her lactate was initially elevated but improved to normal limits with fluid resuscitation. CT abdomen and pelvis without evidence of acute intra- abdominal process. CT head without acute intracranial abnormality and redemonstrated large chronic right MCA territorial infarct. Ankle x-ray of the left lower extremity without acute bony abnormalities but did show dorsal ulceration and soft tissue edema with foci of subcutaneous gas. General surgery was consulted and evaluated patient at bedside. She is currently undergoing treatment for DKA and sepsis. She has been admitted to the ICU for further management at this time. On arrival to the ICU the patient is encephalopathic and nonverbal. She is mildly tachypneic but does not appear to be in significant respiratory distress. She is currently hemodynamically stable without use of vasopressors and ma intaining oxygen saturations on room air. Patient was evaluated at the bedside by general surgery PA who recommended advanced imaging, appreciate recommendations. Will obtain once patient stabilized. She has a arterial duplex pending. We are initiating DKA protocol with insulin drip and fluid resuscitation. She remains on broad-spectrum antibiotics vancomycin and Zosyn. Allergies Allergy/AdvReac Type Severity Reaction Status Date / Time No Known Allergies Allergy Verified 10/18/20 18:10 Home Medications Medication Instructions Recorded Confirmed Type Toviaz 8 mg PO DAILY 08/28/19 10/18/20 History aspirin 81 mg PO DAILY 08/28/19 10/18/20 History atorvastatin 40 mg PO DAILY 08/28/19 10/18/20 History clopidogrel [Plavix] 75 mg PO DAILY 08/28/19 10/18/20 History insulin aspart U-100 [Novolog 0 unit SUBCUT ACHS 08/28/19 10/18/20 History Flexpen U-100 Insulin] lisinopril 20 mg PO DAILY 08/28/19 10/18/20 History metformin 500 mg PO BID 08/28/19 10/18/20 History metoprolol succinate 50 mg PO DAILY 08/28/19 10/18/20 History pediatric multivitamin 2 tab PO DAILY 08/28/19 10/18/20 History Lantus Solostar U-100 Insulin 50 unit SUBCUT BID #1 pen 09/01/19 10/18/20 Rx Patient History Medical History Chronic hypertension Diabetes Right middle cerebral artery stroke Surgical History History of cholecystectomy Social History Smoking Status: Never smoker Preferred Language: Setswana Communication Ability: Impaired Communication Ability Comment: hx of r mca stroke Sponge Buffer Required: No Beliefs That Will Affect Care: None Current Living Situation: Spouse Current Living Situation Comment: ? neglect Feels Safe at Home: Yes Assistive Devices: Wheelchair Review of Systems Review of Systems: Unobtainable due to cognitive status Physical Exam Constitutional: Frail, thin. Altered mental status Eyes: PERRL, conjunctivae normal, anicteric sclerae ENMT: external ear and nose normal, oropharynx normal Neck: trachea midline, no thyromegaly Respiratory: normal respiratory effort, lungs clear to auscultation Cardiovascular: RRR, no murmur, no edema Heart Sounds: normal S1 and normal S2 Vessels: no JVD Extremities: no edema Gastrointestinal (Abdomen): normal bowel sounds, soft, nontender, no hepatosplenomegaly Skin: Patient with cellulitis and folliculitis across her back. She has a left ankle ulceration with surrounding edema proximal in the calf Neurologic: Confused, nonverbal, left hemiplegia Genitourinary: Aguilar catheter present Results & Data Results & Data ([facility]) Vital Signs (Past 12 Hours) Vital Signs Temp Pulse Pulse Resp BP BP Pulse Ox 10/18/20 21:25 101 H 19 98/64 L 99 10/18/20 20:50 102 H 23 99 10/18/20 20:40 102 H 20 99 10/18/20 20:30 101 H 25 H 99 10/18/20 20:20 101 H 22 100 10/18/20 20:14 103 H 17 156/117 H 99 10/18/20 20:13 103 H 23 99 10/18/20 20:11 102 H 23 99 10/18/20 20:10 103 H 22 104/90 99 10/18/20 20:00 100 H 23 99 10/18/20 19:52 101 H 17 95/78 L 100 10/18/20 19:51 101 H 21 80/43 L 100 10/18/20 19:50 101 H 21 100 10/18/20 19:20 102 H 23 10/18/20 19:10 101 H 17 100 10/18/20 19:01 100 H 19 205/110 H 100 10/18/20 19:00 101 H 22 99 10/18/20 18:50 101 H 24 100 10/18/20 18:40 100 H 24 100 10/18/20 18:31 97 H 22 100 10/18/20 18:30 96 H 25 H 147/98 H 100 10/18/20 18:20 94 H 20 100 10/18/20 18:10 92 H 21 100 10/18/20 18:01 91 H 20 100 10/18/20 18:00 91 H 20 140/76 100 10/18/20 17:50 92 H 20 100 10/18/20 17:40 96 H 20 100 10/18/20 17:31 97 H 183/96 H 10/18/20 17:30 97 H 10/18/20 17:01 96 H 157/89 H 100 10/18/20 16:30 96 H 17 159/84 H 100 10/18/20 16:25 36.6 C 20 96 10/18/20 16:14 96 H 19 176/82 H 100 10/18/20 15:01 98 H 21 167/70 H 10/18/20 14:30 104 H 25 H 135/102 H 10/18/20 14:10 103 H 21 100 10/18/20 14:00 103 H 21 157/86 H 100 10/18/20 13:47 107 H 25 H 152/91 H 99 10/18/20 13:41 106 H 22 148/117 H 100 Coding Level of Care Code Critical Care 1st 30-74 mins Diagnoses DKA (diabetic ketoacidosis) E13.10 Diabetes mellitus complication detail: without coma Diabetes mellitus type: other specified (including SALO) Sepsis A41.9; R65.20; G93.40 Sepsis acute organ dysfunction status: with acute organ dysfunction Sepsis type: sepsis due to unspecified organism Severe sepsis acute organ dysfunction type: encephalopathy Severe sepsis shock status: without septic shock Heel ulceration L97.429 Laterality: left Non-pressure ulcer stage: unspecified non-pressure ulcer stage Hypokalemia E87.6 Elevated lactic acid level R79.89 UTI (urinary tract infection) N30.01 Hematuria presence: with hematuria Urinary tract infection type: acute cystitis PVD (peripheral vascular disease) I73.9 Acute metabolic encephalopathy G93.41 Cellulitis L03.90 (1) DKA (diabetic ketoacidosis) Diabetes mellitus complication detail: without coma Diabetes mellitus type: other specified (including SALO) Qualified Code(s): E13.10 - Other specified diabetes mellitus with ketoacidosis without coma (2) Sepsis Sepsis acute organ dysfunction status: with acute organ dysfunction Sepsis type: sepsis due to unspecified organism Severe sepsis acute organ dysfunction type: encephalopathy Severe sepsis shock status: without septic shock Qualified Code(s): A41.9 - Sepsis, unspecified organism; R65.20 - Severe sepsis without septic shock; G93.40 - Encephalopathy, unspecified (3) Heel ulceration Laterality: left Non-pressure ulcer stage: unspecified non-pressure ulcer stage Qualified Code(s): L97.429 - Non-pressure chronic ulcer of left heel and midfoot with unspecified severity (4) UTI (urinary tract infection) Hematuria presence: with hematuria Urinary tract infection type: acute cystitis Qualified Code(s): N30.01 - Acute cystitis with hematuria
[2020-10-18] MEDS: PIPERACILLIN/TAZOBACTAM 3.375 GM in DEXTROSE 5% 100 ML IV SCH (22:41)
[2020-10-18] MEDS ORDERED: DEXTROSE 50% 50 ML SYRINGE IV PRN (23:15)
[2020-10-18] MEDS ORDERED: GLUCOSE 10 TABS/TUBE PO PRN (23:15)
[2020-10-18] MEDS ORDERED: GLUCAGON FOR INJ 1 MG VIAL IM PRN (23:15)
[2020-10-18] MEDS ORDERED: NovoLIN-R BOLUS FROM BAG IV ONE (23:15)
[2020-10-18] MEDS ORDERED: GLUCOSE 40% GEL 15 GM TUBE PO PRN (23:15)
[2020-10-18 23:20] LABS: Calcium 11.3 mg/dl (8.5-10.1); Creatinine Clr Calc Pharmacy 54.4 ml/min; Est GFR (African American) 70.9 ml/min; Est GFR (Non-African American) 61.2 ml/min; Phosphorus 1.9 mg/dl (2.5-4.9); Potassium 3.1 mmol/L (3.5-5.1)
[2020-10-18] MEDS ORDERED: POTASSIUM CHLORIDE 40 MEQ in SODIUM CHLORIDE 0.45 % 1,000 ML IV SCH (23:45)
[2020-10-18] MEDS: POTASSIUM CHLORIDE 40 MEQ in SODIUM CHLORIDE 0.45 % 1,000 ML IV SCH (23:50)
[2020-10-18 23:52] LABS: Beta-Hydroxybutyrate 86.68 mg/dl (0.2-2.81)
[2020-10-19] MEDS: PENDING D5 1/2NS+20mEq KCL IVF SCH ×5 (00:22→06:33)
[2020-10-19] MEDS: POTASSIUM CHLORIDE / WTR 10 MEQ/100 ML PLCT IV SCH ×3 (00:35→02:33)
[2020-10-19] MEDS ORDERED: PHARMACY GLYCEMIC MGMT CONSULT PRN (01:09)
[2020-10-19 02:08] LABS: Est GFR (African American) 73.4 ml/min; Est GFR (Non-African American) 63.3 ml/min; Phosphorus 0.7 mg/dl (2.5-4.9)
[2020-10-19] MEDS ORDERED: POTASSIUM PHOS 3 MMOL/1 ML INFUSION IV STA ×3 (02:14→19:12)
[2020-10-19] MEDS ORDERED: NYSTATIN POWDER 15GM BTL EXT PRN (02:19)
[2020-10-19 02:45] LABS: Beta-Hydroxybutyrate 77.96 mg/dl (0.2-2.81)
[2020-10-19] MEDS ORDERED: POTASSIUM PHOSPHATE 21 MMOL in SODIUM CHLORIDE 0.9% 500 ML IV ONE (02:45)
[2020-10-19] MEDS: POTASSIUM CHLORIDE 40 MEQ in SODIUM CHLORIDE 0.45 % 1,000 ML IV SCH (05:10)
[2020-10-19] MEDS: PIPERACILLIN/TAZOBACTAM 3.375 GM in DEXTROSE 5% 100 ML IV SCH ×3 (05:55→22:02)
[2020-10-19] MEDS ORDERED: CLINDAMYCIN 600 MG in DEXTROSE 5% 50 ML IV SCH (06:00)
[2020-10-19] MEDS ORDERED: VANCOMYCIN HCL 1,000 MG in SODIUM CHLORIDE 0.9% 250 ML IV SCH (06:00)
--- NOTE | 2020-10-19 06:26 | Electrocardiogram Report ---
Test Reason : Blood Pressure : / mmHG Vent. Rate : 105 BPM Atrial Rate : 104 BPM P-R Int : 172 ms QRS Dur : 098 ms QT Int : 348 ms P-R-T Axes : 000 048 017 degrees QTc Int : 460 ms Sinus tachycardia Possible Inferior infarct (cited on or before 27-AUG-2019) Anterior infarct (cited on or before 27-AUG-2019) Nonspecific ST and T wave abnormality Abnormal ECG When compared with ECG of 27-AUG-2019 23:51, Nonspecific T wave abnormality is now present in anterolateral leads Confirmed by Amadeo Benson ([id number]) on 10/19/2020 6:26:01 AM Referred By: REFERRED SELF Confirmed By:Amadeo Benson
[2020-10-19 06:40] LABS: BUN Creatinine Ratio 27.3 (10-20); Calcium 10.9 mg/dl (8.5-10.1); Est GFR (African American) 83.1 ml/min; Est GFR (Non-African American) 71.7 ml/min; Magnesium 1.9 mg/dl (1.8-2.4); Phosphorus 1.6 mg/dl (2.5-4.9); Potassium 3.8 mmol/L (3.5-5.1)
[2020-10-19 06:47] LABS: Hematocrit (blood only) 32.7 % (37-47); Hemoglobin 11.2 g/dL (12.0-16.0); Mean Corpuscular Hgb Conc 34.3 g/dL (32-36); Mean Corpuscular Volume 87.7 fL (80-100); Mean Platelet Volume 8.5 fL (7.4-10.4); Platelet Count 723 K/uL (130-400); RDW Coefficient of Variation 13.9 % (11.5-14.5); RDW Standard Deviation 44.6 fL (36.4-46.3); Red Blood Count 3.73 M/uL (4.2-5.4); White Blood Count 44.71 K/uL (4.8-10.8)
--- NOTE | 2020-10-19 07:15 | Hospitalist Progress Note ---
Date of Service October 19, 2020 Assessment & Plan Admission and Anticipated Discharge Date Admission Date: October 18, 2020 Subjective *Patient noncommunicative* Bed with eyes open, moving, tracking objects. Patient's mentation continues to improve. Currently ICU status. Results & Data Results & Data ([facility]) Vital Signs (Past 12 Hours) Vital Signs Temp Pulse Pulse Resp BP BP Pulse Ox 10/19/20 06:24 36.6 C 91 H 23 141/83 H 100 10/19/20 06:20 36.6 C 88 23 100 10/19/20 06:10 36.6 C 91 H 22 100 10/19/20 06:00 36.6 C 93 H 19 10/19/20 05:50 36.6 C 94 H 16 10/19/20 05:40 36.6 C 94 H 19 10/19/20 05:30 36.5 C 93 H 22 10/19/20 05:20 36.5 C 93 H 16 10/19/20 05:10 36.5 C 93 H 19 10/19/20 05:00 36.5 C 94 H 18 100 10/19/20 04:50 36.5 C 92 H 17 100 10/19/20 04:40 36.5 C 92 H 20 100 10/19/20 04:30 36.5 C 90 21 100 10/19/20 04:20 36.6 C 93 H 20 10/19/20 04:19 36.6 C 93 H 18 156/104 H 100 10/19/20 04:13 93 H 21 99 10/19/20 03:50 36.4 C L 90 20 100 10/19/20 03:43 36.4 C L 94 H 17 145/102 H 100 10/19/20 03:13 36.3 C L 100 H 17 157/97 H 100 10/19/20 02:43 36.3 C L 88 36 H 111/60 100 10/19/20 02:13 36.3 C L 86 29 H 106/63 100 10/19/20 02:00 36.3 C L 95 H 25 H 100 10/19/20 01:43 36.2 C L 102 H 17 156/79 H 100 10/19/20 01:13 36.2 C L 102 H 24 155/83 H 100 10/19/20 01:00 36.2 C L 105 H 23 100 10/19/20 00:44 36.2 C L 103 H 31 H 100 10/19/20 00:43 36.2 C L 103 H 23 143/73 H 100 10/19/20 00:30 36.2 C L 103 H 33 H 100 10/19/20 00:13 36.2 C L 102 H 20 148/78 H 100 10/19/20 00:00 36.2 C L 102 H 20 100 10/18/20 23:43 36.1 C L 99 H 18 161/96 H 100 10/18/20 23:30 36.1 C L 102 H 27 H 98 10/18/20 23:13 36.1 C L 102 H 27 H 165/67 H 100 10/18/20 23:00 36.0 C L 102 H 28 H 100 10/18/20 22:43 36.0 C L 103 H 29 H 163/67 H 100 10/18/20 22:30 36.0 C L 103 H 25 H 100 10/18/20 22:20 36.0 C L 105 H 36 H 100 10/18/20 22:14 36.1 C L 106 H 14 177/91 H 100 10/18/20 22:10 36.1 C L 104 H 20 100 10/18/20 22:00 36.1 C L 103 H 24 100 10/18/20 21:50 36.1 C L 100 10/18/20 21:43 36.1 C L 102 H 22 150/92 H 100 10/18/20 21:42 106 H 10/18/20 21:41 36.1 C L 103 H 26 H 100 10/18/20 21:30 36.1 C L 102 H 26 H 150/92 H 100 10/18/20 21:25 101 H 19 98/64 L 99 10/18/20 21:23 36.1 C L 103 H 17 167/82 H 100 10/18/20 21:00 101 H 20 99 10/18/20 20:50 102 H 23 99 10/18/20 20:40 102 H 20 99 10/18/20 20:30 101 H 25 H 99 10/18/20 20:20 101 H 22 100 10/18/20 20:14 103 H 17 156/117 H 99 10/18/20 20:13 103 H 23 99 10/18/20 20:11 102 H 23 99 10/18/20 20:10 103 H 22 104/90 99 10/18/20 20:00 100 H 23 99 10/18/20 19:52 101 H 17 95/78 L 100 10/18/20 19:51 101 H 21 80/43 L 100 10/18/20 19:50 101 H 21 100 10/18/20 19:20 102 H 23 10/18/20 19:10 101 H 17 100 Laboratory Results 10/19/20 10/19/20 10/19/20 Range/Units 07:03 06:02 05:43 WBC 44.71 H* (4.8-10.8) K/uL RBC 3.73 L (4.2-5.4) M/uL Hgb 11.2 L (12.0-16.0) g/dL POC Hgb (12.0-16.0) g/dl Hct 32.7 L (37-47) % POC Hct (37-47) % MCV 87.7 (80-100) fL MCH 30.0 (25-34) pg MCHC 34.3 (32-36) g/dL RDW Std Deviation 44.6 (36.4-46.3) fL RDW Coeff of Travis 13.9 (11.5-14.5) % Plt Count 723 H (130-400) K/uL MPV 8.5 (7.4-10.4) fL Immature Gran % (Auto) % Neut % (Auto) % Lymph % (Auto) % [place] % (Auto) % Eos % (Auto) % Baso % (Auto) % Neut # (Auto) (1.4-6.5) K/uL Lymph # (Auto) (1.2-3.4) K/uL [place] # (Auto) (0.11-0.59) K/uL Eos # (Auto) (0-0.5) K/uL Baso # (Auto) (0-0.2) K/uL Immature Gran # (Auto) (0.00-0.02) K/uL Echinocytes PT (9.0-12.0) Seconds INR (0.9-1.1) APTT (21.0-31.0) Seconds PTT Ratio ABG pH (7.35-7.45) ABG pCO2 (35-46) mmHg ABG pO2 (80-95) mmHg ABG HCO3 (19-24) mmol/L ABG O2 Saturation (90-95) % ABG Base Excess (-9-1.8) mEq/L Shahram Test (Pos) VBG pH (7.36-7.41) VBG pCO2 (38-50) mmHg VBG pO2 mmHg VBG HCO3 mmol/L VBG O2 Saturation % VBG Base Excess mEq/L Barometric Pressure mm/Hg Oxygen Given POC Sodium (135-144) mmol/L Sodium (136-145) mmol/L POC Potassium (3.3-5.0) mmol/L Potassium (3.5-5.1) mmol/L POC Chloride (101-112) mmol/L Chloride (98-107) mmol/L Carbon Dioxide (21-32) mmol/L POC Total CO2 (24-31) mmol/L Anion Gap (3-11) POC Anion Gap (16-25) mmol/L POC BUN (7-18) mg/dl BUN (7-18) mg/dl Creatinine (0.6-1.2) mg/dl POC Creatinine (0.6-1.3) mg/dl Est Cr Clr Drug Dosing Est GFR ( Amer) ml/min Est GFR (Non-Af Amer) ml/min BUN/Creatinine Ratio (10-20) Glucose (70-99) mg/dl POC Glucose 242 H 264 H (70-99) mg/dl POC Glucose (other) (70-99) mg/dl Estimat Average Glucose Hemoglobin A1c Osmolality (280-300) mOsm/kg Lactate (0.4-2.0) mmol/L Calcium (8.5-10.1) mg/dl POC Ioniz Calcium Sesar (1.12-1.32) mmol/l Phosphorus (2.5-4.9) mg/dl Magnesium (1.8-2.4) mg/dl Total Bilirubin (0.2-1) mg/dl Direct Bilirubin (0-0.2) mg/dl AST (15-37) U/L ALT (12-78) U/L Alkaline Phosphatase (45-117) U/L Total Creatine Kinase (26-192) U/L Troponin I (0-0.045) ng/ml Total Protein (6.4-8.2) gm/dl Albumin (3.4-5.0) gm/dl Globulin (2.5-4.0) gm/dl Albumin/Globulin Ratio (0.9-2) Lipase (73-393) U/L Beta-Hydroxybutyric Acd (0.2-2.81) mg/dl Procalcitonin (0-0.5) ng/ml TSH (0.300-4.500) uIu/ml Urine Color Urine Appearance (Clear) Urine pH (4.5-7.5) Ur Specific Hallie (1.000-1.030) Urine Protein (Negative) Urine Glucose (UA) (Negative) Urine Ketones (Negative) Urine Blood (Negative) Urine Nitrite (Negative) Urine Bilirubin (Negative) Urine Urobilinogen (Negative) Ur Leukocyte Esterase (Negative) Urine WBC (Auto) (0-5) /hpf Urine RBC (Auto) (0-4) /hpf U Hyaline Cast (Auto) (0-5) /lpf U Epithel Cells (Auto) (0-5) /lpf Urine Bacteria (Auto) (Negative) Urine Yeast (None Prsent) Nasal Screen MRSA (PCR) (Negative) COVID-19 Eval Order SARS-CoV-2 (PCR) (Negative) 10/19/20 10/19/20 10/19/20 Range/Units 05:43 05:43 05:43 WBC (4.8-10.8) K/uL RBC (4.2-5.4) M/uL Hgb (12.0-16.0) g/dL POC Hgb (12.0-16.0) g/dl Hct (37-47) % POC Hct (37-47) % MCV (80-100) fL MCH (25-34) pg MCHC (32-36) g/dL RDW Std Deviation (36.4-46.3) fL RDW Coeff of Travis (11.5-14.5) % Plt Count (130-400) K/uL MPV (7.4-10.4) fL Immature Gran % (Auto) % Neut % (Auto) % Lymph % (Auto) % [place] % (Auto) % Eos % (Auto) % Baso % (Auto) % Neut # (Auto) (1.4-6.5) K/uL Lymph # (Auto) (1.2-3.4) K/uL [place] # (Auto) (0.11-0.59) K/uL Eos # (Auto) (0-0.5) K/uL Baso # (Auto) (0-0.2) K/uL Immature Gran # (Auto) (0.00-0.02) K/uL Echinocytes PT (9.0-12.0) Seconds INR (0.9-1.1) APTT (21.0-31.0) Seconds PTT Ratio ABG pH (7.35-7.45) ABG pCO2 (35-46) mmHg ABG pO2 (80-95) mmHg ABG HCO3 (19-24) mmol/L ABG O2 Saturation (90-95) % ABG Base Excess (-9-1.8) mEq/L Shharam Test (Pos) VBG pH 7.30 L (7.36-7.41) VBG pCO2 (38-50) mmHg VBG pO2 mmHg VBG HCO3 mmol/L VBG O2 Saturation % VBG Base Excess mEq/L Barometric Pressure mm/Hg Oxygen Given POC Sodium (135-144) mmol/L Sodium 146 H (136-145) mmol/L POC Potassium (3.3-5.0) mmol/L Potassium 3.8 D (3.5-5.1) mmol/L POC Chloride (101-112) mmol/L Chloride 121 H (98-107) mmol/L Carbon Dioxide 15 L (21-32) mmol/L POC Total CO2 (24-31) mmol/L Anion Gap 10.0 (3-11) POC Anion Gap (16-25) mmol/L POC BUN (7-18) mg/dl BUN 25 H (7-18) mg/dl Creatinine 0.93 (0.6-1.2) mg/dl POC Creatinine (0.6-1.3) mg/dl Est Cr Clr Drug Dosing 60.0 Est GFR ( Amer) 83.1 ml/min Est GFR (Non-Af Amer) 71.7 ml/min BUN/Creatinine Ratio 27.3 H (10-20) Glucose 266 H (70-99) mg/dl POC Glucose (70-99) mg/dl POC Glucose (other) (70-99) mg/dl Estimat Average Glucose Pending Hemoglobin A1c Pending Osmolality (280-300) mOsm/kg Lactate (0.4-2.0) mmol/L Calcium 10.9 H (8.5-10.1) mg/dl POC Ioniz Calcium Sesar (1.12-1.32) mmol/l Phosphorus 1.6 L (2.5-4.9) mg/dl Magnesium 1.9 (1.8-2.4) mg/dl Total Bilirubin (0.2-1) mg/dl Direct Bilirubin (0-0.2) mg/dl AST (15-37) U/L ALT (12-78) U/L Alkaline Phosphatase (45-117) U/L Total Creatine Kinase (26-192) U/L Troponin I (0-0.045) ng/ml Total Protein (6.4-8.2) gm/dl Albumin (3.4-5.0) gm/dl Globulin (2.5-4.0) gm/dl Albumin/Globulin Ratio (0.9-2) Lipase (73-393) U/L Beta-Hydroxybutyric Acd (0.2-2.81) mg/dl Procalcitonin (0-0.5) ng/ml TSH (0.300-4.500) uIu/ml Urine Color Urine Appearance (Clear) Urine pH (4.5-7.5) Ur Specific Hallie (1.000-1.030) Urine Protein (Negative) Urine Glucose (UA) (Negative) Urine Ketones (Negative) Urine Blood (Negative) Urine Nitrite (Negative) Urine Bilirubin (Negative) Urine Urobilinogen (Negative) Ur Leukocyte Esterase (Negative) Urine WBC (Auto) (0-5) /hpf Urine RBC (Auto) (0-4) /hpf U Hyaline Cast (Auto) (0-5) /lpf U Epithel Cells (Auto) (0-5) /lpf Urine Bacteria (Auto) (Negative) Urine Yeast (None Prsent) Nasal Screen MRSA (PCR) (Negative) COVID-19 Eval Order SARS-CoV-2 (PCR) (Negative) 10/19/20 10/19/20 10/19/20 Range/Units 04:57 03:55 03:01 WBC (4.8-10.8) K/uL RBC (4.2-5.4) M/uL Hgb (12.0-16.0) g/dL POC Hgb (12.0-16.0) g/dl Hct (37-47) % POC Hct (37-47) % MCV (80-100) fL MCH (25-34) pg MCHC (32-36) g/dL RDW Std Deviation (36.4-46.3) fL RDW Coeff of Travis (11.5-14.5) % Plt Count (130-400) K/uL MPV (7.4-10.4) fL Immature Gran % (Auto) % Neut % (Auto) % Lymph % (Auto) % [place] % (Auto) % Eos % (Auto) % Baso % (Auto) % Neut # (Auto) (1.4-6.5) K/uL Lymph # (Auto) (1.2-3.4) K/uL [place] # (Auto) (0.11-0.59) K/uL Eos # (Auto) (0-0.5) K/uL Baso # (Auto) (0-0.2) K/uL Immature Gran # (Auto) (0.00-0.02) K/uL Echinocytes PT (9.0-12.0) Seconds INR (0.9-1.1) APTT (21.0-31.0) Seconds PTT Ratio ABG pH (7.35-7.45) ABG pCO2 (35-46) mmHg ABG pO2 (80-95) mmHg ABG HCO3 (19-24) mmol/L ABG O2 Saturation (90-95) % ABG Base Excess (-9-1.8) mEq/L Shahram Test (Pos) VBG pH (7.36-7.41) VBG pCO2 (38-50) mmHg VBG pO2 mmHg VBG HCO3 mmol/L VBG O2 Saturation % VBG Base Excess mEq/L Barometric Pressure mm/Hg Oxygen Given POC Sodium (135-144) mmol/L Sodium (136-145) mmol/L POC Potassium (3.3-5.0) mmol/L Potassium (3.5-5.1) mmol/L POC Chloride (101-112) mmol/L Chloride (98-107) mmol/L Carbon Dioxide (21-32) mmol/L POC Total CO2 (24-31) mmol/L Anion Gap (3-11) POC Anion Gap (16-25) mmol/L POC BUN (7-18) mg/dl BUN (7-18) mg/dl Creatinine (0.6-1.2) mg/dl POC Creatinine (0.6-1.3) mg/dl Est Cr Clr Drug Dosing Est GFR ( Amer) ml/min Est GFR (Non-Af Amer) ml/min BUN/Creatinine Ratio (10-20) Glucose (70-99) mg/dl POC Glucose 255 H 275 H 334 H* (70-99) mg/dl POC Glucose (other) (70-99) mg/dl Estimat Average Glucose Hemoglobin A1c Osmolality (280-300) mOsm/kg Lactate (0.4-2.0) mmol/L Calcium (8.5-10.1) mg/dl POC Ioniz Calcium Sesar (1.12-1.32) mmol/l Phosphorus (2.5-4.9) mg/dl Magnesium (1.8-2.4) mg/dl Total Bilirubin (0.2-1) mg/dl Direct Bilirubin (0-0.2) mg/dl AST (15-37) U/L ALT (12-78) U/L Alkaline Phosphatase (45-117) U/L Total Creatine Kinase (26-192) U/L Troponin I (0-0.045) ng/ml Total Protein (6.4-8.2) gm/dl Albumin (3.4-5.0) gm/dl Globulin (2.5-4.0) gm/dl Albumin/Globulin Ratio (0.9-2) Lipase (73-393) U/L Beta-Hydroxybutyric Acd (0.2-2.81) mg/dl Procalcitonin (0-0.5) ng/ml TSH (0.300-4.500) uIu/ml Urine Color Urine Appearance (Clear) Urine pH (4.5-7.5) Ur Specific Hallie (1.000-1.030) Urine Protein (Negative) Urine Glucose (UA) (Negative) Urine Ketones (Negative) Urine Blood (Negative) Urine Nitrite (Negative) Urine Bilirubin (Negative) Urine Urobilinogen (Negative) Ur Leukocyte Esterase (Negative) Urine WBC (Auto) (0-5) /hpf Urine RBC (Auto) (0-4) /hpf U Hyaline Cast (Auto) (0-5) /lpf U Epithel Cells (Auto) (0-5) /lpf Urine Bacteria (Auto) (Negative) Urine Yeast (None Prsent) Nasal Screen MRSA (PCR) (Negative) COVID-19 Eval Order SARS-CoV-2 (PCR) (Negative) 10/19/20 10/19/20 10/19/20 Range/Units 02:00 01:36 01:36 WBC (4.8-10.8) K/uL RBC (4.2-5.4) M/uL Hgb (12.0-16.0) g/dL POC Hgb (12.0-16.0) g/dl Hct (37-47) % POC Hct (37-47) % MCV (80-100) fL MCH (25-34) pg MCHC (32-36) g/dL RDW Std Deviation (36.4-46.3) fL RDW Coeff of Travis (11.5-14.5) % Plt Count (130-400) K/uL MPV (7.4-10.4) fL Immature Gran % (Auto) % Neut % (Auto) % Lymph % (Auto) % [place] % (Auto) % Eos % (Auto) % Baso % (Auto) % Neut # (Auto) (1.4-6.5) K/uL Lymph # (Auto) (1.2-3.4) K/uL [place] # (Auto) (0.11-0.59) K/uL Eos # (Auto) (0-0.5) K/uL Baso # (Auto) (0-0.2) K/uL Immature Gran # (Auto) (0.00-0.02) K/uL Echinocytes PT (9.0-12.0) Seconds INR (0.9-1.1) APTT (21.0-31.0) Seconds PTT Ratio ABG pH (7.35-7.45) ABG pCO2 (35-46) mmHg ABG pO2 (80-95) mmHg ABG HCO3 (19-24) mmol/L ABG O2 Saturation (90-95) % ABG Base Excess (-9-1.8) mEq/L Shahram Test (Pos) VBG pH 7.21 L (7.36-7.41) VBG pCO2 (38-50) mmHg VBG pO2 mmHg VBG HCO3 mmol/L VBG O2 Saturation % VBG Base Excess mEq/L Barometric Pressure mm/Hg Oxygen Given POC Sodium (135-144) mmol/L Sodium 147 H (136-145) mmol/L POC Potassium (3.3-5.0) mmol/L Potassium 3.0 L (3.5-5.1) mmol/L POC Chloride (101-112) mmol/L Chloride 118 H (98-107) mmol/L Carbon Dioxide 9 L* (21-32) mmol/L POC Total CO2 (24-31) mmol/L Anion Gap 20.0 H (3-11) POC Anion Gap (16-25) mmol/L POC BUN (7-18) mg/dl BUN 29 H (7-18) mg/dl Creatinine 1.03 (0.6-1.2) mg/dl POC Creatinine (0.6-1.3) mg/dl Est Cr Clr Drug Dosing 56.0 Est GFR ( Amer) 73.4 ml/min Est GFR (Non-Af Amer) 63.3 ml/min BUN/Creatinine Ratio 28.0 H (10-20) Glucose 378 H* (70-99) mg/dl POC Glucose 348 H* (70-99) mg/dl POC Glucose (other) (70-99) mg/dl Estimat Average Glucose Hemoglobin A1c Osmolality (280-300) mOsm/kg Lactate (0.4-2.0) mmol/L Calcium 11.0 H (8.5-10.1) mg/dl POC Ioniz Calcium Sesar (1.12-1.32) mmol/l Phosphorus 0.7 L* D (2.5-4.9) mg/dl Magnesium 2.0 (1.8-2.4) mg/dl Total Bilirubin (0.2-1) mg/dl Direct Bilirubin (0-0.2) mg/dl AST (15-37) U/L ALT (12-78) U/L Alkaline Phosphatase (45-117) U/L Total Creatine Kinase (26-192) U/L Troponin I (0-0.045) ng/ml Total Protein (6.4-8.2) gm/dl Albumin (3.4-5.0) gm/dl Globulin (2.5-4.0) gm/dl Albumin/Globulin Ratio (0.9-2) Lipase (73-393) U/L Beta-Hydroxybutyric Acd 77.96 H (0.2-2.81) mg/dl Procalcitonin (0-0.5) ng/ml TSH (0.300-4.500) uIu/ml Urine Color Urine Appearance (Clear) Urine pH (4.5-7.5) Ur Specific Hallie (1.000-1.030) Urine Protein (Negative) Urine Glucose (UA) (Negative) Urine Ketones (Negative) Urine Blood (Negative) Urine Nitrite (Negative) Urine Bilirubin (Negative) Urine Urobilinogen (Negative) Ur Leukocyte Esterase (Negative) Urine WBC (Auto) (0-5) /hpf Urine RBC (Auto) (0-4) /hpf U Hyaline Cast (Auto) (0-5) /lpf U Epithel Cells (Auto) (0-5) /lpf Urine Bacteria (Auto) (Negative) Urine Yeast (None Prsent) Nasal Screen MRSA (PCR) (Negative) COVID-19 Eval Order SARS-CoV-2 (PCR) (Negative) 10/19/20 10/18/20 10/18/20 Range/Units 01:03 22:50 22:41 WBC (4.8-10.8) K/uL RBC (4.2-5.4) M/uL Hgb (12.0-16.0) g/dL POC Hgb (12.0-16.0) g/dl Hct (37-47) % POC Hct (37-47) % MCV (80-100) fL MCH (25-34) pg MCHC (32-36) g/dL RDW Std Deviation (36.4-46.3) fL RDW Coeff of Travis (11.5-14.5) % Plt Count (130-400) K/uL MPV (7.4-10.4) fL Immature Gran % (Auto) % Neut % (Auto) % Lymph % (Auto) % [place] % (Auto) % Eos % (Auto) % Baso % (Auto) % Neut # (Auto) (1.4-6.5) K/uL Lymph # (Auto) (1.2-3.4) K/uL [place] # (Auto) (0.11-0.59) K/uL Eos # (Auto) (0-0.5) K/uL Baso # (Auto) (0-0.2) K/uL Immature Gran # (Auto) (0.00-0.02) K/uL Echinocytes PT (9.0-12.0) Seconds INR (0.9-1.1) APTT (21.0-31.0) Seconds PTT Ratio ABG pH (7.35-7.45) ABG pCO2 (35-46) mmHg ABG pO2 (80-95) mmHg ABG HCO3 (19-24) mmol/L ABG O2 Saturation (90-95) % ABG Base Excess (-9-1.8) mEq/L Shahram Test (Pos) VBG pH 7.17 L (7.36-7.41) VBG pCO2 (38-50) mmHg VBG pO2 mmHg VBG HCO3 mmol/L VBG O2 Saturation % VBG Base Excess mEq/L Barometric Pressure mm/Hg Oxygen Given POC Sodium (135-144) mmol/L Sodium (136-145) mmol/L POC Potassium (3.3-5.0) mmol/L Potassium (3.5-5.1) mmol/L POC Chloride (101-112) mmol/L Chloride (98-107) mmol/L Carbon Dioxide (21-32) mmol/L POC Total CO2 (24-31) mmol/L Anion Gap (3-11) POC Anion Gap (16-25) mmol/L POC BUN (7-18) mg/dl BUN (7-18) mg/dl Creatinine (0.6-1.2) mg/dl POC Creatinine (0.6-1.3) mg/dl Est Cr Clr Drug Dosing Est GFR ( Amer) ml/min Est GFR (Non-Af Amer) ml/min BUN/Creatinine Ratio (10-20) Glucose (70-99) mg/dl POC Glucose 376 H* 370 H* (70-99) mg/dl POC Glucose (other) (70-99) mg/dl Estimat Average Glucose Hemoglobin A1c Osmolality (280-300) mOsm/kg Lactate (0.4-2.0) mmol/L Calcium (8.5-10.1) mg/dl POC Ioniz Calcium Sesar (1.12-1.32) mmol/l Phosphorus (2.5-4.9) mg/dl Magnesium (1.8-2.4) mg/dl Total Bilirubin (0.2-1) mg/dl Direct Bilirubin (0-0.2) mg/dl AST (15-37) U/L ALT (12-78) U/L Alkaline Phosphatase (45-117) U/L Total Creatine Kinase (26-192) U/L Troponin I (0-0.045) ng/ml Total Protein (6.4-8.2) gm/dl Albumin (3.4-5.0) gm/dl Globulin (2.5-4.0) gm/dl Albumin/Globulin Ratio (0.9-2) Lipase (73-393) U/L Beta-Hydroxybutyric Acd (0.2-2.81) mg/dl Procalcitonin (0-0.5) ng/ml TSH (0.300-4.500) uIu/ml Urine Color Urine Appearance (Clear) Urine pH (4.5-7.5) Ur Specific Hallie (1.000-1.030) Urine Protein (Negative) Urine Glucose (UA) (Negative) Urine Ketones (Negative) Urine Blood (Negative) Urine Nitrite (Negative) Urine Bilirubin (Negative) Urine Urobilinogen (Negative) Ur Leukocyte Esterase (Negative) Urine WBC (Auto) (0-5) /hpf Urine RBC (Auto) (0-4) /hpf U Hyaline Cast (Auto) (0-5) /lpf U Epithel Cells (Auto) (0-5) /lpf Urine Bacteria (Auto) (Negative) Urine Yeast (None Prsent) Nasal Screen MRSA (PCR) (Negative) COVID-19 Eval Order SARS-CoV-2 (PCR) (Negative) 10/18/20 10/18/20 10/18/20 Range/Units 22:41 21:50 21:49 WBC (4.8-10.8) K/uL RBC (4.2-5.4) M/uL Hgb (12.0-16.0) g/dL POC Hgb (12.0-16.0) g/dl Hct (37-47) % POC Hct (37-47) % MCV (80-100) fL MCH (25-34) pg MCHC (32-36) g/dL RDW Std Deviation (36.4-46.3) fL RDW Coeff of Travis (11.5-14.5) % Plt Count (130-400) K/uL MPV (7.4-10.4) fL Immature Gran % (Auto) % Neut % (Auto) % Lymph % (Auto) % [place] % (Auto) % Eos % (Auto) % Baso % (Auto) % Neut # (Auto) (1.4-6.5) K/uL Lymph # (Auto) (1.2-3.4) K/uL [place] # (Auto) (0.11-0.59) K/uL Eos # (Auto) (0-0.5) K/uL Baso # (Auto) (0-0.2) K/uL Immature Gran # (Auto) (0.00-0.02) K/uL Echinocytes PT (9.0-12.0) Seconds INR (0.9-1.1) APTT (21.0-31.0) Seconds PTT Ratio ABG pH (7.35-7.45) ABG pCO2 (35-46) mmHg ABG pO2 (80-95) mmHg ABG HCO3 (19-24) mmol/L ABG O2 Saturation (90-95) % ABG Base Excess (-9-1.8) mEq/L Shahram Test (Pos) VBG pH (7.36-7.41) VBG pCO2 (38-50) mmHg VBG pO2 mmHg VBG HCO3 mmol/L VBG O2 Saturation % VBG Base Excess mEq/L Barometric Pressure mm/Hg Oxygen Given POC Sodium (135-144) mmol/L Sodium 147 H (136-145) mmol/L POC Potassium (3.3-5.0) mmol/L Potassium 3.1 L (3.5-5.1) mmol/L POC Chloride (101-112) mmol/L Chloride 114 H (98-107) mmol/L Carbon Dioxide 9 L* (21-32) mmol/L POC Total CO2 (24-31) mmol/L Anion Gap 24.0 H (3-11) POC Anion Gap (16-25) mmol/L POC BUN (7-18) mg/dl BUN 29 H (7-18) mg/dl Creatinine 1.06 (0.6-1.2) mg/dl POC Creatinine (0.6-1.3) mg/dl Est Cr Clr Drug Dosing 54.4 Est GFR ( Amer) 70.9 ml/min Est GFR (Non-Af Amer) 61.2 ml/min BUN/Creatinine Ratio 27.0 H (10-20) Glucose 403 H* (70-99) mg/dl POC Glucose 368 H* 358 H* (70-99) mg/dl POC Glucose (other) (70-99) mg/dl Estimat Average Glucose Hemoglobin A1c Osmolality (280-300) mOsm/kg Lactate (0.4-2.0) mmol/L Calcium 11.3 H (8.5-10.1) mg/dl POC Ioniz Calcium Sesar (1.12-1.32) mmol/l Phosphorus 1.9 L D (2.5-4.9) mg/dl Magnesium 2.0 (1.8-2.4) mg/dl Total Bilirubin (0.2-1) mg/dl Direct Bilirubin (0-0.2) mg/dl AST (15-37) U/L ALT (12-78) U/L Alkaline Phosphatase (45-117) U/L Total Creatine Kinase (26-192) U/L Troponin I (0-0.045) ng/ml Total Protein (6.4-8.2) gm/dl Albumin (3.4-5.0) gm/dl Globulin (2.5-4.0) gm/dl Albumin/Globulin Ratio (0.9-2) Lipase (73-393) U/L Beta-Hydroxybutyric Acd 86.68 H (0.2-2.81) mg/dl Procalcitonin (0-0.5) ng/ml TSH (0.300-4.500) uIu/ml Urine Color Urine Appearance (Clear) Urine pH (4.5-7.5) Ur Specific Hallie (1.000-1.030) Urine Protein (Negative) Urine Glucose (UA) (Negative) Urine Ketones (Negative) Urine Blood (Negative) Urine Nitrite (Negative) Urine Bilirubin (Negative) Urine Urobilinogen (Negative) Ur Leukocyte Esterase (Negative) Urine WBC (Auto) (0-5) /hpf Urine RBC (Auto) (0-4) /hpf U Hyaline Cast (Auto) (0-5) /lpf U Epithel Cells (Auto) (0-5) /lpf Urine Bacteria (Auto) (Negative) Urine Yeast (None Prsent) Nasal Screen MRSA (PCR) (Negative) COVID-19 Eval Order SARS-CoV-2 (PCR) (Negative) 10/18/20 10/18/20 10/18/20 Range/Units 21:37 19:40 19:39 WBC (4.8-10.8) K/uL RBC (4.2-5.4) M/uL Hgb (12.0-16.0) g/dL POC Hgb (12.0-16.0) g/dl Hct (37-47) % POC Hct (37-47) % MCV (80-100) fL MCH (25-34) pg MCHC (32-36) g/dL RDW Std Deviation (36.4-46.3) fL RDW Coeff of Travis (11.5-14.5) % Plt Count (130-400) K/uL MPV (7.4-10.4) fL Immature Gran % (Auto) % Neut % (Auto) % Lymph % (Auto) % [place] % (Auto) % Eos % (Auto) % Baso % (Auto) % Neut # (Auto) (1.4-6.5) K/uL Lymph # (Auto) (1.2-3.4) K/uL [place] # (Auto) (0.11-0.59) K/uL Eos # (Auto) (0-0.5) K/uL Baso # (Auto) (0-0.2) K/uL Immature Gran # (Auto) (0.00-0.02) K/uL Echinocytes PT (9.0-12.0) Seconds INR (0.9-1.1) APTT (21.0-31.0) Seconds PTT Ratio ABG pH 7.25 L (7.35-7.45) ABG pCO2 12 L (35-46) mmHg ABG pO2 121 H (80-95) mmHg ABG HCO3 5 L (19-24) mmol/L ABG O2 Saturation 98.3 H (90-95) % ABG Base Excess -19.2 L (-9-1.8) mEq/L Shahram Test Pos (Pos) VBG pH (7.36-7.41) VBG pCO2 (38-50) mmHg VBG pO2 mmHg VBG HCO3 mmol/L VBG O2 Saturation % VBG Base Excess mEq/L Barometric Pressure 731.7 mm/Hg Oxygen Given Room Air POC Sodium (135-144) mmol/L Sodium 143 (136-145) mmol/L POC Potassium (3.3-5.0) mmol/L Potassium 3.1 L D (3.5-5.1) mmol/L POC Chloride (101-112) mmol/L Chloride 113 H (98-107) mmol/L Carbon Dioxide 8 L* (21-32) mmol/L POC Total CO2 (24-31) mmol/L Anion Gap 22.0 H (3-11) POC Anion Gap (16-25) mmol/L POC BUN (7-18) mg/dl BUN 29 H (7-18) mg/dl Creatinine 1.02 (0.6-1.2) mg/dl POC Creatinine (0.6-1.3) mg/dl Est Cr Clr Drug Dosing 56.6 Est GFR ( Amer) 74.3 ml/min Est GFR (Non-Af Amer) 64.1 ml/min BUN/Creatinine Ratio 28.1 H (10-20) Glucose 403 H* (70-99) mg/dl POC Glucose (70-99) mg/dl POC Glucose (other) (70-99) mg/dl Estimat Average Glucose Hemoglobin A1c Osmolality (280-300) mOsm/kg Lactate (0.4-2.0) mmol/L Calcium 11.0 H (8.5-10.1) mg/dl POC Ioniz Calcium Sesar (1.12-1.32) mmol/l Phosphorus (2.5-4.9) mg/dl Magnesium (1.8-2.4) mg/dl Total Bilirubin (0.2-1) mg/dl Direct Bilirubin (0-0.2) mg/dl AST (15-37) U/L ALT (12-78) U/L Alkaline Phosphatase (45-117) U/L Total Creatine Kinase (26-192) U/L Troponin I (0-0.045) ng/ml Total Protein (6.4-8.2) gm/dl Albumin (3.4-5.0) gm/dl Globulin (2.5-4.0) gm/dl Albumin/Globulin Ratio (0.9-2) Lipase (73-393) U/L Beta-Hydroxybutyric Acd 81.97 H (0.2-2.81) mg/dl Procalcitonin (0-0.5) ng/ml TSH (0.300-4.500) uIu/ml Urine Color Urine Appearance (Clear) Urine pH (4.5-7.5) Ur Specific Hallie (1.000-1.030) Urine Protein (Negative) Urine Glucose (UA) (Negative) Urine Ketones (Negative) Urine Blood (Negative) Urine Nitrite (Negative) Urine Bilirubin (Negative) Urine Urobilinogen (Negative) Ur Leukocyte Esterase (Negative) Urine WBC (Auto) (0-5) /hpf Urine RBC (Auto) (0-4) /hpf U Hyaline Cast (Auto) (0-5) /lpf U Epithel Cells (Auto) (0-5) /lpf Urine Bacteria (Auto) (Negative) Urine Yeast (None Prsent) Nasal Screen MRSA (PCR) Negative (Negative) COVID-19 Eval Order SARS-CoV-2 (PCR) (Negative) 10/18/20 10/18/20 10/18/20 Range/Units 17:35 17:16 15:39 WBC (4.8-10.8) K/uL RBC (4.2-5.4) M/uL Hgb (12.0-16.0) g/dL POC Hgb (12.0-16.0) g/dl Hct (37-47) % POC Hct (37-47) % MCV (80-100) fL MCH (25-34) pg MCHC (32-36) g/dL RDW Std Deviation (36.4-46.3) fL RDW Coeff of Travis (11.5-14.5) % Plt Count (130-400) K/uL MPV (7.4-10.4) fL Immature Gran % (Auto) % Neut % (Auto) % Lymph % (Auto) % [place] % (Auto) % Eos % (Auto) % Baso % (Auto) % Neut # (Auto) (1.4-6.5) K/uL Lymph # (Auto) (1.2-3.4) K/uL [place] # (Auto) (0.11-0.59) K/uL Eos # (Auto) (0-0.5) K/uL Baso # (Auto) (0-0.2) K/uL Immature Gran # (Auto) (0.00-0.02) K/uL Echinocytes PT (9.0-12.0) Seconds INR (0.9-1.1) APTT (21.0-31.0) Seconds PTT Ratio ABG pH (7.35-7.45) ABG pCO2 (35-46) mmHg ABG pO2 (80-95) mmHg ABG HCO3 (19-24) mmol/L ABG O2 Saturation (90-95) % ABG Base Excess (-9-1.8) mEq/L Shahram Test (Pos) VBG pH (7.36-7.41) VBG pCO2 (38-50) mmHg VBG pO2 mmHg VBG HCO3 mmol/L VBG O2 Saturation % VBG Base Excess mEq/L Barometric Pressure mm/Hg Oxygen Given POC Sodium (135-144) mmol/L Sodium (136-145) mmol/L POC Potassium (3.3-5.0) mmol/L Potassium (3.5-5.1) mmol/L POC Chloride (101-112) mmol/L Chloride (98-107) mmol/L Carbon Dioxide (21-32) mmol/L POC Total CO2 (24-31) mmol/L Anion Gap (3-11) POC Anion Gap (16-25) mmol/L POC BUN (7-18) mg/dl BUN (7-18) mg/dl Creatinine (0.6-1.2) mg/dl POC Creatinine (0.6-1.3) mg/dl Est Cr Clr Drug Dosing Est GFR ( Amer) ml/min Est GFR (Non-Af Amer) ml/min BUN/Creatinine Ratio (10-20) Glucose (70-99) mg/dl POC Glucose 443 H* (70-99) mg/dl POC Glucose (other) (70-99) mg/dl Estimat Average Glucose Hemoglobin A1c Osmolality (280-300) mOsm/kg Lactate 1.8 (0.4-2.0) mmol/L Calcium (8.5-10.1) mg/dl POC Ioniz Calcium Sesar (1.12-1.32) mmol/l Phosphorus (2.5-4.9) mg/dl Magnesium (1.8-2.4) mg/dl Total Bilirubin (0.2-1) mg/dl Direct Bilirubin (0-0.2) mg/dl AST (15-37) U/L ALT (12-78) U/L Alkaline Phosphatase (45-117) U/L Total Creatine Kinase (26-192) U/L Troponin I (0-0.045) ng/ml Total Protein (6.4-8.2) gm/dl Albumin (3.4-5.0) gm/dl Globulin (2.5-4.0) gm/dl Albumin/Globulin Ratio (0.9-2) Lipase (73-393) U/L Beta-Hydroxybutyric Acd (0.2-2.81) mg/dl Procalcitonin (0-0.5) ng/ml TSH (0.300-4.500) uIu/ml Urine Color Yellow Urine Appearance Clear (Clear) Urine pH 5.0 (4.5-7.5) Ur Specific Hallie 1.026 (1.000-1.030) Urine Protein 1+ H (Negative) Urine Glucose (UA) 3+ H (Negative) Urine Ketones 4+ H (Negative) Urine Blood 2+ H (Negative) Urine Nitrite Negative (Negative) Urine Bilirubin Negative (Negative) Urine Urobilinogen Negative (Negative) Ur Leukocyte Esterase Negative (Negative) Urine WBC (Auto) 10-30 H (0-5) /hpf Urine RBC (Auto) 10-30 H (0-4) /hpf U Hyaline Cast (Auto) 0 (0-5) /lpf U Epithel Cells (Auto) >30 H (0-5) /lpf Urine Bacteria (Auto) 1+ H (Negative) Urine Yeast Budding A (None Prsent) Nasal Screen MRSA (PCR) (Negative) COVID-19 Eval Order SARS-CoV-2 (PCR) (Negative) 10/18/20 10/18/20 10/18/20 Range/Units 15:17 15:17 14:43 WBC (4.8-10.8) K/uL RBC (4.2-5.4) M/uL Hgb (12.0-16.0) g/dL POC Hgb (12.0-16.0) g/dl Hct (37-47) % POC Hct (37-47) % MCV (80-100) fL MCH (25-34) pg MCHC (32-36) g/dL RDW Std Deviation (36.4-46.3) fL RDW Coeff of Travis (11.5-14.5) % Plt Count (130-400) K/uL MPV (7.4-10.4) fL Immature Gran % (Auto) % Neut % (Auto) % Lymph % (Auto) % [place] % (Auto) % Eos % (Auto) % Baso % (Auto) % Neut # (Auto) (1.4-6.5) K/uL Lymph # (Auto) (1.2-3.4) K/uL [place] # (Auto) (0.11-0.59) K/uL Eos # (Auto) (0-0.5) K/uL Baso # (Auto) (0-0.2) K/uL Immature Gran # (Auto) (0.00-0.02) K/uL Echinocytes PT (9.0-12.0) Seconds INR (0.9-1.1) APTT (21.0-31.0) Seconds PTT Ratio ABG pH (7.35-7.45) ABG pCO2 (35-46) mmHg ABG pO2 (80-95) mmHg ABG HCO3 (19-24) mmol/L ABG O2 Saturation (90-95) % ABG Base Excess (-9-1.8) mEq/L Shahram Test (Pos) VBG pH 7.18 L (7.36-7.41) VBG pCO2 25 L (38-50) mmHg VBG pO2 20 mmHg VBG HCO3 9 mmol/L VBG O2 Saturation < 60.0 % VBG Base Excess -17.6 mEq/L Barometric Pressure 732.1 mm/Hg Oxygen Given POC Sodium (135-144) mmol/L Sodium (136-145) mmol/L POC Potassium (3.3-5.0) mmol/L Potassium (3.5-5.1) mmol/L POC Chloride (101-112) mmol/L Chloride (98-107) mmol/L Carbon Dioxide (21-32) mmol/L POC Total CO2 (24-31) mmol/L Anion Gap (3-11) POC Anion Gap (16-25) mmol/L POC BUN (7-18) mg/dl BUN (7-18) mg/dl Creatinine (0.6-1.2) mg/dl POC Creatinine (0.6-1.3) mg/dl Est Cr Clr Drug Dosing Est GFR ( Amer) ml/min Est GFR (Non-Af Amer) ml/min BUN/Creatinine Ratio (10-20) Glucose (70-99) mg/dl POC Glucose (70-99) mg/dl POC Glucose (other) (70-99) mg/dl Estimat Average Glucose Hemoglobin A1c Osmolality (280-300) mOsm/kg Lactate 2.9 H* (0.4-2.0) mmol/L Calcium (8.5-10.1) mg/dl POC Ioniz Calcium Sesar (1.12-1.32) mmol/l Phosphorus (2.5-4.9) mg/dl Magnesium (1.8-2.4) mg/dl Total Bilirubin (0.2-1) mg/dl Direct Bilirubin (0-0.2) mg/dl AST (15-37) U/L ALT (12-78) U/L Alkaline Phosphatase (45-117) U/L Total Creatine Kinase (26-192) U/L Troponin I (0-0.045) ng/ml Total Protein (6.4-8.2) gm/dl Albumin (3.4-5.0) gm/dl Globulin (2.5-4.0) gm/dl Albumin/Globulin Ratio (0.9-2) Lipase (73-393) U/L Beta-Hydroxybutyric Acd (0.2-2.81) mg/dl Procalcitonin (0-0.5) ng/ml TSH (0.300-4.500) uIu/ml Urine Color Urine Appearance (Clear) Urine pH (4.5-7.5) Ur Specific Hallie (1.000-1.030) Urine Protein (Negative) Urine Glucose (UA) (Negative) Urine Ketones (Negative) Urine Blood (Negative) Urine Nitrite (Negative) Urine Bilirubin (Negative) Urine Urobilinogen (Negative) Ur Leukocyte Esterase (Negative) Urine WBC (Auto) (0-5) /hpf Urine RBC (Auto) (0-4) /hpf U Hyaline Cast (Auto) (0-5) /lpf U Epithel Cells (Auto) (0-5) /lpf Urine Bacteria (Auto) (Negative) Urine Yeast (None Prsent) Nasal Screen MRSA (PCR) (Negative) COVID-19 Eval Order SARS-CoV-2 (PCR) NEGATIVE (Negative) 10/18/20 10/18/20 10/18/20 Range/Units 14:43 14:30 14:25 WBC (4.8-10.8) K/uL RBC (4.2-5.4) M/uL Hgb (12.0-16.0) g/dL POC Hgb 14.3 (12.0-16.0) g/dl Hct (37-47) % POC Hct 42 (37-47) % MCV (80-100) fL MCH (25-34) pg MCHC (32-36) g/dL RDW Std Deviation (36.4-46.3) fL RDW Coeff of Travis (11.5-14.5) % Plt Count (130-400) K/uL MPV (7.4-10.4) fL Immature Gran % (Auto) % Neut % (Auto) % Lymph % (Auto) % [place] % (Auto) % Eos % (Auto) % Baso % (Auto) % Neut # (Auto) (1.4-6.5) K/uL Lymph # (Auto) (1.2-3.4) K/uL [place] # (Auto) (0.11-0.59) K/uL Eos # (Auto) (0-0.5) K/uL Baso # (Auto) (0-0.2) K/uL Immature Gran # (Auto) (0.00-0.02) K/uL Echinocytes PT (9.0-12.0) Seconds INR (0.9-1.1) APTT (21.0-31.0) Seconds PTT Ratio ABG pH (7.35-7.45) ABG pCO2 (35-46) mmHg ABG pO2 (80-95) mmHg ABG HCO3 (19-24) mmol/L ABG O2 Saturation (90-95) % ABG Base Excess (-9-1.8) mEq/L Shahram Test (Pos) VBG pH (7.36-7.41) VBG pCO2 (38-50) mmHg VBG pO2 mmHg VBG HCO3 mmol/L VBG O2 Saturation % VBG Base Excess mEq/L Barometric Pressure mm/Hg Oxygen Given POC Sodium 140 (135-144) mmol/L Sodium (136-145) mmol/L POC Potassium 2.7 L (3.3-5.0) mmol/L Potassium (3.5-5.1) mmol/L POC Chloride 109 (101-112) mmol/L Chloride (98-107) mmol/L Carbon Dioxide (21-32) mmol/L POC Total CO2 8 L* (24-31) mmol/L Anion Gap (3-11) POC Anion Gap 27.0 H (16-25) mmol/L POC BUN 30 H (7-18) mg/dl BUN (7-18) mg/dl Creatinine (0.6-1.2) mg/dl POC Creatinine 0.5 L (0.6-1.3) mg/dl Est Cr Clr Drug Dosing Est GFR ( Amer) ml/min Est GFR (Non-Af Amer) ml/min BUN/Creatinine Ratio (10-20) Glucose (70-99) mg/dl POC Glucose (70-99) mg/dl POC Glucose (other) 539 H* (70-99) mg/dl Estimat Average Glucose Hemoglobin A1c Osmolality 345 H (280-300) mOsm/kg Lactate (0.4-2.0) mmol/L Calcium (8.5-10.1) mg/dl POC Ioniz Calcium Sesar 1.62 H* (1.12-1.32) mmol/l Phosphorus (2.5-4.9) mg/dl Magnesium (1.8-2.4) mg/dl Total Bilirubin (0.2-1) mg/dl Direct Bilirubin (0-0.2) mg/dl AST (15-37) U/L ALT (12-78) U/L Alkaline Phosphatase (45-117) U/L Total Creatine Kinase (26-192) U/L Troponin I (0-0.045) ng/ml Total Protein (6.4-8.2) gm/dl Albumin (3.4-5.0) gm/dl Globulin (2.5-4.0) gm/dl Albumin/Globulin Ratio (0.9-2) Lipase (73-393) U/L Beta-Hydroxybutyric Acd (0.2-2.81) mg/dl Procalcitonin (0-0.5) ng/ml TSH (0.300-4.500) uIu/ml Urine Color Urine Appearance (Clear) Urine pH (4.5-7.5) Ur Specific Hallie (1.000-1.030) Urine Protein (Negative) Urine Glucose (UA) (Negative) Urine Ketones (Negative) Urine Blood (Negative) Urine Nitrite (Negative) Urine Bilirubin (Negative) Urine Urobilinogen (Negative) Ur Leukocyte Esterase (Negative) Urine WBC (Auto) (0-5) /hpf Urine RBC (Auto) (0-4) /hpf U Hyaline Cast (Auto) (0-5) /lpf U Epithel Cells (Auto) (0-5) /lpf Urine Bacteria (Auto) (Negative) Urine Yeast (None Prsent) Nasal Screen MRSA (PCR) (Negative) COVID-19 Eval Order Covid19 at [facility] SARS-CoV-2 (PCR) (Negative) 10/18/20 10/18/20 10/18/20 Range/Units 14:25 14:25 14:25 WBC (4.8-10.8) K/uL RBC (4.2-5.4) M/uL Hgb (12.0-16.0) g/dL POC Hgb (12.0-16.0) g/dl Hct (37-47) % POC Hct (37-47) % MCV (80-100) fL MCH (25-34) pg MCHC (32-36) g/dL RDW Std Deviation (36.4-46.3) fL RDW Coeff of Travis (11.5-14.5) % Plt Count (130-400) K/uL MPV (7.4-10.4) fL Immature Gran % (Auto) % Neut % (Auto) % Lymph % (Auto) % [place] % (Auto) % Eos % (Auto) % Baso % (Auto) % Neut # (Auto) (1.4-6.5) K/uL Lymph # (Auto) (1.2-3.4) K/uL [place] # (Auto) (0.11-0.59) K/uL Eos # (Auto) (0-0.5) K/uL Baso # (Auto) (0-0.2) K/uL Immature Gran # (Auto) (0.00-0.02) K/uL Echinocytes PT 11.4 (9.0-12.0) Seconds INR 1.1 (0.9-1.1) APTT < 20.0 L (21.0-31.0) Seconds PTT Ratio 0.8 ABG pH (7.35-7.45) ABG pCO2 (35-46) mmHg ABG pO2 (80-95) mmHg ABG HCO3 (19-24) mmol/L ABG O2 Saturation (90-95) % ABG Base Excess (-9-1.8) mEq/L Shahram Test (Pos) VBG pH (7.36-7.41) VBG pCO2 (38-50) mmHg VBG pO2 mmHg VBG HCO3 mmol/L VBG O2 Saturation % VBG Base Excess mEq/L Barometric Pressure mm/Hg Oxygen Given POC Sodium (135-144) mmol/L Sodium 138 (136-145) mmol/L POC Potassium (3.3-5.0) mmol/L Potassium 2.6 L (3.5-5.1) mmol/L POC Chloride (101-112) mmol/L Chloride 104 (98-107) mmol/L Carbon Dioxide 8 L* (21-32) mmol/L POC Total CO2 (24-31) mmol/L Anion Gap 26.0 H (3-11) POC Anion Gap (16-25) mmol/L POC BUN (7-18) mg/dl BUN 29 H (7-18) mg/dl Creatinine 1.23 H (0.6-1.2) mg/dl POC Creatinine (0.6-1.3) mg/dl Est Cr Clr Drug Dosing Not Reportable Est GFR ( Amer) 59.2 ml/min Est GFR (Non-Af Amer) 51.1 ml/min BUN/Creatinine Ratio 23.4 H (10-20) Glucose 537 H* (70-99) mg/dl POC Glucose (70-99) mg/dl POC Glucose (other) (70-99) mg/dl Estimat Average Glucose Hemoglobin A1c Osmolality (280-300) mOsm/kg Lactate (0.4-2.0) mmol/L Calcium 12.6 H* (8.5-10.1) mg/dl POC Ioniz Calcium Sesar (1.12-1.32) mmol/l Phosphorus 3.2 (2.5-4.9) mg/dl Magnesium 2.3 (1.8-2.4) mg/dl Total Bilirubin 0.5 (0.2-1) mg/dl Direct Bilirubin < 0.1 (0-0.2) mg/dl AST 11 L (15-37) U/L ALT 17 (12-78) U/L Alkaline Phosphatase 222 H (45-117) U/L Total Creatine Kinase 98 (26-192) U/L Troponin I < 0.015 (0-0.045) ng/ml Total Protein 8.9 H (6.4-8.2) gm/dl Albumin 2.2 L (3.4-5.0) gm/dl Globulin 6.7 H (2.5-4.0) gm/dl Albumin/Globulin Ratio 0.3 L (0.9-2) Lipase 219 (73-393) U/L Beta-Hydroxybutyric Acd 107.88 H (0.2-2.81) mg/dl Procalcitonin 0.79 H (0-0.5) ng/ml TSH 0.515 (0.300-4.500) uIu/ml Urine Color Urine Appearance (Clear) Urine pH (4.5-7.5) Ur Specific Hallie (1.000-1.030) Urine Protein (Negative) Urine Glucose (UA) (Negative) Urine Ketones (Negative) Urine Blood (Negative) Urine Nitrite (Negative) Urine Bilirubin (Negative) Urine Urobilinogen (Negative) Ur Leukocyte Esterase (Negative) Urine WBC (Auto) (0-5) /hpf Urine RBC (Auto) (0-4) /hpf U Hyaline Cast (Auto) (0-5) /lpf U Epithel Cells (Auto) (0-5) /lpf Urine Bacteria (Auto) (Negative) Urine Yeast (None Prsent) Nasal Screen MRSA (PCR) (Negative) COVID-19 Eval Order SARS-CoV-2 (PCR) (Negative) 10/18/20 10/18/20 Range/Units 14:25 14:15 WBC 47.94 H* (4.8-10.8) K/uL RBC 4.37 (4.2-5.4) M/uL Hgb 13.5 (12.0-16.0) g/dL POC Hgb (12.0-16.0) g/dl Hct 39.3 (37-47) % POC Hct (37-47) % MCV 89.9 (80-100) fL MCH 30.9 (25-34) pg MCHC 34.4 (32-36) g/dL RDW Std Deviation 45.2 (36.4-46.3) fL RDW Coeff of Travis 13.7 (11.5-14.5) % Plt Count 844 H (130-400) K/uL MPV 9.1 (7.4-10.4) fL Immature Gran % (Auto) 4.4 % Neut % (Auto) 82.5 % Lymph % (Auto) 5.7 % [place] % (Auto) 7.0 % Eos % (Auto) 0.0 % Baso % (Auto) 0.4 % Neut # (Auto) 39.57 H (1.4-6.5) K/uL Lymph # (Auto) 2.71 (1.2-3.4) K/uL [place] # (Auto) 3.35 H (0.11-0.59) K/uL Eos # (Auto) 0.00 (0-0.5) K/uL Baso # (Auto) 0.21 H (0-0.2) K/uL Immature Gran # (Auto) 2.10 H (0.00-0.02) K/uL Echinocytes 2+ PT (9.0-12.0) Seconds INR (0.9-1.1) APTT (21.0-31.0) Seconds PTT Ratio ABG pH (7.35-7.45) ABG pCO2 (35-46) mmHg ABG pO2 (80-95) mmHg ABG HCO3 (19-24) mmol/L ABG O2 Saturation (90-95) % ABG Base Excess (-9-1.8) mEq/L Shahram Test (Pos) VBG pH (7.36-7.41) VBG pCO2 (38-50) mmHg VBG pO2 mmHg VBG HCO3 mmol/L VBG O2 Saturation % VBG Base Excess mEq/L Barometric Pressure mm/Hg Oxygen Given POC Sodium (135-144) mmol/L Sodium (136-145) mmol/L POC Potassium (3.3-5.0) mmol/L Potassium (3.5-5.1) mmol/L POC Chloride (101-112) mmol/L Chloride (98-107) mmol/L Carbon Dioxide (21-32) mmol/L POC Total CO2 (24-31) mmol/L Anion Gap (3-11) POC Anion Gap (16-25) mmol/L POC BUN (7-18) mg/dl BUN (7-18) mg/dl Creatinine (0.6-1.2) mg/dl POC Creatinine (0.6-1.3) mg/dl Est Cr Clr Drug Dosing Est GFR ( Amer) ml/min Est GFR (Non-Af Amer) ml/min BUN/Creatinine Ratio (10-20) Glucose (70-99) mg/dl POC Glucose 529 H* (70-99) mg/dl POC Glucose (other) (70-99) mg/dl Estimat Average Glucose Hemoglobin A1c Osmolality (280-300) mOsm/kg Lactate (0.4-2.0) mmol/L Calcium (8.5-10.1) mg/dl POC Ioniz Calcium Sesar (1.12-1.32) mmol/l Phosphorus (2.5-4.9) mg/dl Magnesium (1.8-2.4) mg/dl Total Bilirubin (0.2-1) mg/dl Direct Bilirubin (0-0.2) mg/dl AST (15-37) U/L ALT (12-78) U/L Alkaline Phosphatase (45-117) U/L Total Creatine Kinase (26-192) U/L Troponin I (0-0.045) ng/ml Total Protein (6.4-8.2) gm/dl Albumin (3.4-5.0) gm/dl Globulin (2.5-4.0) gm/dl Albumin/Globulin Ratio (0.9-2) Lipase (73-393) U/L Beta-Hydroxybutyric Acd (0.2-2.81) mg/dl Procalcitonin (0-0.5) ng/ml TSH (0.300-4.500) uIu/ml Urine Color Urine Appearance (Clear) Urine pH (4.5-7.5) Ur Specific Hallie (1.000-1.030) Urine Protein (Negative) Urine Glucose (UA) (Negative) Urine Ketones (Negative) Urine Blood (Negative) Urine Nitrite (Negative) Urine Bilirubin (Negative) Urine Urobilinogen (Negative) Ur Leukocyte Esterase (Negative) Urine WBC (Auto) (0-5) /hpf Urine RBC (Auto) (0-4) /hpf U Hyaline Cast (Auto) (0-5) /lpf U Epithel Cells (Auto) (0-5) /lpf Urine Bacteria (Auto) (Negative) Urine Yeast (None Prsent) Nasal Screen MRSA (PCR) (Negative) COVID-19 Eval Order SARS-CoV-2 (PCR) (Negative) Medications Administered 10/19/20 10/19/20 10/19/20 Range/Units 07:03 06:02 05:43 WBC 44.71 H* (4.8-10.8) K/uL RBC 3.73 L (4.2-5.4) M/uL Hgb 11.2 L (12.0-16.0) g/dL POC Hgb (12.0-16.0) g/dl Hct 32.7 L (37-47) % POC Hct (37-47) % MCV 87.7 (80-100) fL MCH 30.0 (25-34) pg MCHC 34.3 (32-36) g/dL RDW Std Deviation 44.6 (36.4-46.3) fL RDW Coeff of Travis 13.9 (11.5-14.5) % Plt Count 723 H (130-400) K/uL MPV 8.5 (7.4-10.4) fL Immature Gran % (Auto) % Neut % (Auto) % Lymph % (Auto) % [place] % (Auto) % Eos % (Auto) % Baso % (Auto) % Neut # (Auto) (1.4-6.5) K/uL Lymph # (Auto) (1.2-3.4) K/uL [place] # (Auto) (0.11-0.59) K/uL Eos # (Auto) (0-0.5) K/uL Baso # (Auto) (0-0.2) K/uL Immature Gran # (Auto) (0.00-0.02) K/uL Echinocytes PT (9.0-12.0) Seconds INR (0.9-1.1) APTT (21.0-31.0) Seconds PTT Ratio ABG pH (7.35-7.45) ABG pCO2 (35-46) mmHg ABG pO2 (80-95) mmHg ABG HCO3 (19-24) mmol/L ABG O2 Saturation (90-95) % ABG Base Excess (-9-1.8) mEq/L Shahram Test (Pos) VBG pH (7.36-7.41) VBG pCO2 (38-50) mmHg VBG pO2 mmHg VBG HCO3 mmol/L VBG O2 Saturation % VBG Base Excess mEq/L Barometric Pressure mm/Hg Oxygen Given POC Sodium (135-144) mmol/L Sodium (136-145) mmol/L POC Potassium (3.3-5.0) mmol/L Potassium (3.5-5.1) mmol/L POC Chloride (101-112) mmol/L Chloride (98-107) mmol/L Carbon Dioxide (21-32) mmol/L POC Total CO2 (24-31) mmol/L Anion Gap (3-11) POC Anion Gap (16-25) mmol/L POC BUN (7-18) mg/dl BUN (7-18) mg/dl Creatinine (0.6-1.2) mg/dl POC Creatinine (0.6-1.3) mg/dl Est Cr Clr Drug Dosing Est GFR ( Amer) ml/min Est GFR (Non-Af Amer) ml/min BUN/Creatinine Ratio (10-20) Glucose (70-99) mg/dl POC Glucose 242 H 264 H (70-99) mg/dl POC Glucose (other) (70-99) mg/dl Estimat Average Glucose Hemoglobin A1c Osmolality (280-300) mOsm/kg Lactate (0.4-2.0) mmol/L Calcium (8.5-10.1) mg/dl POC Ioniz Calcium Sesar (1.12-1.32) mmol/l Phosphorus (2.5-4.9) mg/dl Magnesium (1.8-2.4) mg/dl Total Bilirubin (0.2-1) mg/dl Direct Bilirubin (0-0.2) mg/dl AST (15-37) U/L ALT (12-78) U/L Alkaline Phosphatase (45-117) U/L Total Creatine Kinase (26-192) U/L Troponin I (0-0.045) ng/ml Total Protein (6.4-8.2) gm/dl Albumin (3.4-5.0) gm/dl Globulin (2.5-4.0) gm/dl Albumin/Globulin Ratio (0.9-2) Lipase (73-393) U/L Beta-Hydroxybutyric Acd (0.2-2.81) mg/dl Procalcitonin (0-0.5) ng/ml TSH (0.300-4.500) uIu/ml Urine Color Urine Appearance (Clear) Urine pH (4.5-7.5) Ur Specific Hallie (1.000-1.030) Urine Protein (Negative) Urine Glucose (UA) (Negative) Urine Ketones (Negative) Urine Blood (Negative) Urine Nitrite (Negative) Urine Bilirubin (Negative) Urine Urobilinogen (Negative) Ur Leukocyte Esterase (Negative) Urine WBC (Auto) (0-5) /hpf Urine RBC (Auto) (0-4) /hpf U Hyaline Cast (Auto) (0-5) /lpf U Epithel Cells (Auto) (0-5) /lpf Urine Bacteria (Auto) (Negative) Urine Yeast (None Prsent) Nasal Screen MRSA (PCR) (Negative) COVID-19 Eval Order SARS-CoV-2 (PCR) (Negative) 10/19/20 10/19/20 10/19/20 Range/Units 05:43 05:43 05:43 WBC (4.8-10.8) K/uL RBC (4.2-5.4) M/uL Hgb (12.0-16.0) g/dL POC Hgb (12.0-16.0) g/dl Hct (37-47) % POC Hct (37-47) % MCV (80-100) fL MCH (25-34) pg MCHC (32-36) g/dL RDW Std Deviation (36.4-46.3) fL RDW Coeff of Travis (11.5-14.5) % Plt Count (130-400) K/uL MPV (7.4-10.4) fL Immature Gran % (Auto) % Neut % (Auto) % Lymph % (Auto) % [place] % (Auto) % Eos % (Auto) % Baso % (Auto) % Neut # (Auto) (1.4-6.5) K/uL Lymph # (Auto) (1.2-3.4) K/uL [place] # (Auto) (0.11-0.59) K/uL Eos # (Auto) (0-0.5) K/uL Baso # (Auto) (0-0.2) K/uL Immature Gran # (Auto) (0.00-0.02) K/uL Echinocytes PT (9.0-12.0) Seconds INR (0.9-1.1) APTT (21.0-31.0) Seconds PTT Ratio ABG pH (7.35-7.45) ABG pCO2 (35-46) mmHg ABG pO2 (80-95) mmHg ABG HCO3 (19-24) mmol/L ABG O2 Saturation (90-95) % ABG Base Excess (-9-1.8) mEq/L Shahram Test (Pos) VBG pH 7.30 L (7.36-7.41) VBG pCO2 (38-50) mmHg VBG pO2 mmHg VBG HCO3 mmol/L VBG O2 Saturation % VBG Base Excess mEq/L Barometric Pressure mm/Hg Oxygen Given POC Sodium (135-144) mmol/L Sodium 146 H (136-145) mmol/L POC Potassium (3.3-5.0) mmol/L Potassium 3.8 D (3.5-5.1) mmol/L POC Chloride (101-112) mmol/L Chloride 121 H (98-107) mmol/L Carbon Dioxide 15 L (21-32) mmol/L POC Total CO2 (24-31) mmol/L Anion Gap 10.0 (3-11) POC Anion Gap (16-25) mmol/L POC BUN (7-18) mg/dl BUN 25 H (7-18) mg/dl Creatinine 0.93 (0.6-1.2) mg/dl POC Creatinine (0.6-1.3) mg/dl Est Cr Clr Drug Dosing 60.0 Est GFR ( Amer) 83.1 ml/min Est GFR (Non-Af Amer) 71.7 ml/min BUN/Creatinine Ratio 27.3 H (10-20) Glucose 266 H (70-99) mg/dl POC Glucose (70-99) mg/dl POC Glucose (other) (70-99) mg/dl Estimat Average Glucose Pending Hemoglobin A1c Pending Osmolality (280-300) mOsm/kg Lactate (0.4-2.0) mmol/L Calcium 10.9 H (8.5-10.1) mg/dl POC Ioniz Calcium Sesar (1.12-1.32) mmol/l Phosphorus 1.6 L (2.5-4.9) mg/dl Magnesium 1.9 (1.8-2.4) mg/dl Total Bilirubin (0.2-1) mg/dl Direct Bilirubin (0-0.2) mg/dl AST (15-37) U/L ALT (12-78) U/L Alkaline Phosphatase (45-117) U/L Total Creatine Kinase (26-192) U/L Troponin I (0-0.045) ng/ml Total Protein (6.4-8.2) gm/dl Albumin (3.4-5.0) gm/dl Globulin (2.5-4.0) gm/dl Albumin/Globulin Ratio (0.9-2) Lipase (73-393) U/L Beta-Hydroxybutyric Acd (0.2-2.81) mg/dl Procalcitonin (0-0.5) ng/ml TSH (0.300-4.500) uIu/ml Urine Color Urine Appearance (Clear) Urine pH (4.5-7.5) Ur Specific Hallie (1.000-1.030) Urine Protein (Negative) Urine Glucose (UA) (Negative) Urine Ketones (Negative) Urine Blood (Negative) Urine Nitrite (Negative) Urine Bilirubin (Negative) Urine Urobilinogen (Negative) Ur Leukocyte Esterase (Negative) Urine WBC (Auto) (0-5) /hpf Urine RBC (Auto) (0-4) /hpf U Hyaline Cast (Auto) (0-5) /lpf U Epithel Cells (Auto) (0-5) /lpf Urine Bacteria (Auto) (Negative) Urine Yeast (None Prsent) Nasal Screen MRSA (PCR) (Negative) COVID-19 Eval Order SARS-CoV-2 (PCR) (Negative) 10/19/20 10/19/20 10/19/20 Range/Units 04:57 03:55 03:01 WBC (4.8-10.8) K/uL RBC (4.2-5.4) M/uL Hgb (12.0-16.0) g/dL POC Hgb (12.0-16.0) g/dl Hct (37-47) % POC Hct (37-47) % MCV (80-100) fL MCH (25-34) pg MCHC (32-36) g/dL RDW Std Deviation (36.4-46.3) fL RDW Coeff of Travis (11.5-14.5) % Plt Count (130-400) K/uL MPV (7.4-10.4) fL Immature Gran % (Auto) % Neut % (Auto) % Lymph % (Auto) % [place] % (Auto) % Eos % (Auto) % Baso % (Auto) % Neut # (Auto) (1.4-6.5) K/uL Lymph # (Auto) (1.2-3.4) K/uL [place] # (Auto) (0.11-0.59) K/uL Eos # (Auto) (0-0.5) K/uL Baso # (Auto) (0-0.2) K/uL Immature Gran # (Auto) (0.00-0.02) K/uL Echinocytes PT (9.0-12.0) Seconds INR (0.9-1.1) APTT (21.0-31.0) Seconds PTT Ratio ABG pH (7.35-7.45) ABG pCO2 (35-46) mmHg ABG pO2 (80-95) mmHg ABG HCO3 (19-24) mmol/L ABG O2 Saturation (90-95) % ABG Base Excess (-9-1.8) mEq/L Shahram Test (Pos) VBG pH (7.36-7.41) VBG pCO2 (38-50) mmHg VBG pO2 mmHg VBG HCO3 mmol/L VBG O2 Saturation % VBG Base Excess mEq/L Barometric Pressure mm/Hg Oxygen Given POC Sodium (135-144) mmol/L Sodium (136-145) mmol/L POC Potassium (3.3-5.0) mmol/L Potassium (3.5-5.1) mmol/L POC Chloride (101-112) mmol/L Chloride (98-107) mmol/L Carbon Dioxide (21-32) mmol/L POC Total CO2 (24-31) mmol/L Anion Gap (3-11) POC Anion Gap (16-25) mmol/L POC BUN (7-18) mg/dl BUN (7-18) mg/dl Creatinine (0.6-1.2) mg/dl POC Creatinine (0.6-1.3) mg/dl Est Cr Clr Drug Dosing Est GFR ( Amer) ml/min Est GFR (Non-Af Amer) ml/min BUN/Creatinine Ratio (10-20) Glucose (70-99) mg/dl POC Glucose 255 H 275 H 334 H* (70-99) mg/dl POC Glucose (other) (70-99) mg/dl Estimat Average Glucose Hemoglobin A1c Osmolality (280-300) mOsm/kg Lactate (0.4-2.0) mmol/L Calcium (8.5-10.1) mg/dl POC Ioniz Calcium Sesar (1.12-1.32) mmol/l Phosphorus (2.5-4.9) mg/dl Magnesium (1.8-2.4) mg/dl Total Bilirubin (0.2-1) mg/dl Direct Bilirubin (0-0.2) mg/dl AST (15-37) U/L ALT (12-78) U/L Alkaline Phosphatase (45-117) U/L Total Creatine Kinase (26-192) U/L Troponin I (0-0.045) ng/ml Total Protein (6.4-8.2) gm/dl Albumin (3.4-5.0) gm/dl Globulin (2.5-4.0) gm/dl Albumin/Globulin Ratio (0.9-2) Lipase (73-393) U/L Beta-Hydroxybutyric Acd (0.2-2.81) mg/dl Procalcitonin (0-0.5) ng/ml TSH (0.300-4.500) uIu/ml Urine Color Urine Appearance (Clear) Urine pH (4.5-7.5) Ur Specific Hallie (1.000-1.030) Urine Protein (Negative) Urine Glucose (UA) (Negative) Urine Ketones (Negative) Urine Blood (Negative) Urine Nitrite (Negative) Urine Bilirubin (Negative) Urine Urobilinogen (Negative) Ur Leukocyte Esterase (Negative) Urine WBC (Auto) (0-5) /hpf Urine RBC (Auto) (0-4) /hpf U Hyaline Cast (Auto) (0-5) /lpf U Epithel Cells (Auto) (0-5) /lpf Urine Bacteria (Auto) (Negative) Urine Yeast (None Prsent) Nasal Screen MRSA (PCR) (Negative) COVID-19 Eval Order SARS-CoV-2 (PCR) (Negative) 10/19/20 10/19/20 10/19/20 Range/Units 02:00 01:36 01:36 WBC (4.8-10.8) K/uL RBC (4.2-5.4) M/uL Hgb (12.0-16.0) g/dL POC Hgb (12.0-16.0) g/dl Hct (37-47) % POC Hct (37-47) % MCV (80-100) fL MCH (25-34) pg MCHC (32-36) g/dL RDW Std Deviation (36.4-46.3) fL RDW Coeff of Travis (11.5-14.5) % Plt Count (130-400) K/uL MPV (7.4-10.4) fL Immature Gran % (Auto) % Neut % (Auto) % Lymph % (Auto) % [place] % (Auto) % Eos % (Auto) % Baso % (Auto) % Neut # (Auto) (1.4-6.5) K/uL Lymph # (Auto) (1.2-3.4) K/uL [place] # (Auto) (0.11-0.59) K/uL Eos # (Auto) (0-0.5) K/uL Baso # (Auto) (0-0.2) K/uL Immature Gran # (Auto) (0.00-0.02) K/uL Echinocytes PT (9.0-12.0) Seconds INR (0.9-1.1) APTT (21.0-31.0) Seconds PTT Ratio ABG pH (7.35-7.45) ABG pCO2 (35-46) mmHg ABG pO2 (80-95) mmHg ABG HCO3 (19-24) mmol/L ABG O2 Saturation (90-95) % ABG Base Excess (-9-1.8) mEq/L Shahram Test (Pos) VBG pH 7.21 L (7.36-7.41) VBG pCO2 (38-50) mmHg VBG pO2 mmHg VBG HCO3 mmol/L VBG O2 Saturation % VBG Base Excess mEq/L Barometric Pressure mm/Hg Oxygen Given POC Sodium (135-144) mmol/L Sodium 147 H (136-145) mmol/L POC Potassium (3.3-5.0) mmol/L Potassium 3.0 L (3.5-5.1) mmol/L POC Chloride (101-112) mmol/L Chloride 118 H (98-107) mmol/L Carbon Dioxide 9 L* (21-32) mmol/L POC Total CO2 (24-31) mmol/L Anion Gap 20.0 H (3-11) POC Anion Gap (16-25) mmol/L POC BUN (7-18) mg/dl BUN 29 H (7-18) mg/dl Creatinine 1.03 (0.6-1.2) mg/dl POC Creatinine (0.6-1.3) mg/dl Est Cr Clr Drug Dosing 56.0 Est GFR ( Amer) 73.4 ml/min Est GFR (Non-Af Amer) 63.3 ml/min BUN/Creatinine Ratio 28.0 H (10-20) Glucose 378 H* (70-99) mg/dl POC Glucose 348 H* (70-99) mg/dl POC Glucose (other) (70-99) mg/dl Estimat Average Glucose Hemoglobin A1c Osmolality (280-300) mOsm/kg Lactate (0.4-2.0) mmol/L Calcium 11.0 H (8.5-10.1) mg/dl POC Ioniz Calcium Sesar (1.12-1.32) mmol/l Phosphorus 0.7 L* D (2.5-4.9) mg/dl Magnesium 2.0 (1.8-2.4) mg/dl Total Bilirubin (0.2-1) mg/dl Direct Bilirubin (0-0.2) mg/dl AST (15-37) U/L ALT (12-78) U/L Alkaline Phosphatase (45-117) U/L Total Creatine Kinase (26-192) U/L Troponin I (0-0.045) ng/ml Total Protein (6.4-8.2) gm/dl Albumin (3.4-5.0) gm/dl Globulin (2.5-4.0) gm/dl Albumin/Globulin Ratio (0.9-2) Lipase (73-393) U/L Beta-Hydroxybutyric Acd 77.96 H (0.2-2.81) mg/dl Procalcitonin (0-0.5) ng/ml TSH (0.300-4.500) uIu/ml Urine Color Urine Appearance (Clear) Urine pH (4.5-7.5) Ur Specific Hallie (1.000-1.030) Urine Protein (Negative) Urine Glucose (UA) (Negative) Urine Ketones (Negative) Urine Blood (Negative) Urine Nitrite (Negative) Urine Bilirubin (Negative) Urine Urobilinogen (Negative) Ur Leukocyte Esterase (Negative) Urine WBC (Auto) (0-5) /hpf Urine RBC (Auto) (0-4) /hpf U Hyaline Cast (Auto) (0-5) /lpf U Epithel Cells (Auto) (0-5) /lpf Urine Bacteria (Auto) (Negative) Urine Yeast (None Prsent) Nasal Screen MRSA (PCR) (Negative) COVID-19 Eval Order SARS-CoV-2 (PCR) (Negative) 10/19/20 10/18/20 10/18/20 Range/Units 01:03 22:50 22:41 WBC (4.8-10.8) K/uL RBC (4.2-5.4) M/uL Hgb (12.0-16.0) g/dL POC Hgb (12.0-16.0) g/dl Hct (37-47) % POC Hct (37-47) % MCV (80-100) fL MCH (25-34) pg MCHC (32-36) g/dL RDW Std Deviation (36.4-46.3) fL RDW Coeff of Travis (11.5-14.5) % Plt Count (130-400) K/uL MPV (7.4-10.4) fL Immature Gran % (Auto) % Neut % (Auto) % Lymph % (Auto) % [place] % (Auto) % Eos % (Auto) % Baso % (Auto) % Neut # (Auto) (1.4-6.5) K/uL Lymph # (Auto) (1.2-3.4) K/uL [place] # (Auto) (0.11-0.59) K/uL Eos # (Auto) (0-0.5) K/uL Baso # (Auto) (0-0.2) K/uL Immature Gran # (Auto) (0.00-0.02) K/uL Echinocytes PT (9.0-12.0) Seconds INR (0.9-1.1) APTT (21.0-31.0) Seconds PTT Ratio ABG pH (7.35-7.45) ABG pCO2 (35-46) mmHg ABG pO2 (80-95) mmHg ABG HCO3 (19-24) mmol/L ABG O2 Saturation (90-95) % ABG Base Excess (-9-1.8) mEq/L Shahram Test (Pos) VBG pH 7.17 L (7.36-7.41) VBG pCO2 (38-50) mmHg VBG pO2 mmHg VBG HCO3 mmol/L VBG O2 Saturation % VBG Base Excess mEq/L Barometric Pressure mm/Hg Oxygen Given POC Sodium (135-144) mmol/L Sodium (136-145) mmol/L POC Potassium (3.3-5.0) mmol/L Potassium (3.5-5.1) mmol/L POC Chloride (101-112) mmol/L Chloride (98-107) mmol/L Carbon Dioxide (21-32) mmol/L POC Total CO2 (24-31) mmol/L Anion Gap (3-11) POC Anion Gap (16-25) mmol/L POC BUN (7-18) mg/dl BUN (7-18) mg/dl Creatinine (0.6-1.2) mg/dl POC Creatinine (0.6-1.3) mg/dl Est Cr Clr Drug Dosing Est GFR ( Amer) ml/min Est GFR (Non-Af Amer) ml/min BUN/Creatinine Ratio (10-20) Glucose (70-99) mg/dl POC Glucose 376 H* 370 H* (70-99) mg/dl POC Glucose (other) (70-99) mg/dl Estimat Average Glucose Hemoglobin A1c Osmolality (280-300) mOsm/kg Lactate (0.4-2.0) mmol/L Calcium (8.5-10.1) mg/dl POC Ioniz Calcium Sesar (1.12-1.32) mmol/l Phosphorus (2.5-4.9) mg/dl Magnesium (1.8-2.4) mg/dl Total Bilirubin (0.2-1) mg/dl Direct Bilirubin (0-0.2) mg/dl AST (15-37) U/L ALT (12-78) U/L Alkaline Phosphatase (45-117) U/L Total Creatine Kinase (26-192) U/L Troponin I (0-0.045) ng/ml Total Protein (6.4-8.2) gm/dl Albumin (3.4-5.0) gm/dl Globulin (2.5-4.0) gm/dl Albumin/Globulin Ratio (0.9-2) Lipase (73-393) U/L Beta-Hydroxybutyric Acd (0.2-2.81) mg/dl Procalcitonin (0-0.5) ng/ml TSH (0.300-4.500) uIu/ml Urine Color Urine Appearance (Clear) Urine pH (4.5-7.5) Ur Specific Hallie (1.000-1.030) Urine Protein (Negative) Urine Glucose (UA) (Negative) Urine Ketones (Negative) Urine Blood (Negative) Urine Nitrite (Negative) Urine Bilirubin (Negative) Urine Urobilinogen (Negative) Ur Leukocyte Esterase (Negative) Urine WBC (Auto) (0-5) /hpf Urine RBC (Auto) (0-4) /hpf U Hyaline Cast (Auto) (0-5) /lpf U Epithel Cells (Auto) (0-5) /lpf Urine Bacteria (Auto) (Negative) Urine Yeast (None Prsent) Nasal Screen MRSA (PCR) (Negative) COVID-19 Eval Order SARS-CoV-2 (PCR) (Negative) 10/18/20 10/18/20 10/18/20 Range/Units 22:41 21:50 21:49 WBC (4.8-10.8) K/uL RBC (4.2-5.4) M/uL Hgb (12.0-16.0) g/dL POC Hgb (12.0-16.0) g/dl Hct (37-47) % POC Hct (37-47) % MCV (80-100) fL MCH (25-34) pg MCHC (32-36) g/dL RDW Std Deviation (36.4-46.3) fL RDW Coeff of Travis (11.5-14.5) % Plt Count (130-400) K/uL MPV (7.4-10.4) fL Immature Gran % (Auto) % Neut % (Auto) % Lymph % (Auto) % [place] % (Auto) % Eos % (Auto) % Baso % (Auto) % Neut # (Auto) (1.4-6.5) K/uL Lymph # (Auto) (1.2-3.4) K/uL [place] # (Auto) (0.11-0.59) K/uL Eos # (Auto) (0-0.5) K/uL Baso # (Auto) (0-0.2) K/uL Immature Gran # (Auto) (0.00-0.02) K/uL Echinocytes PT (9.0-12.0) Seconds INR (0.9-1.1) APTT (21.0-31.0) Seconds PTT Ratio ABG pH (7.35-7.45) ABG pCO2 (35-46) mmHg ABG pO2 (80-95) mmHg ABG HCO3 (19-24) mmol/L ABG O2 Saturation (90-95) % ABG Base Excess (-9-1.8) mEq/L Shahram Test (Pos) VBG pH (7.36-7.41) VBG pCO2 (38-50) mmHg VBG pO2 mmHg VBG HCO3 mmol/L VBG O2 Saturation % VBG Base Excess mEq/L Barometric Pressure mm/Hg Oxygen Given POC Sodium (135-144) mmol/L Sodium 147 H (136-145) mmol/L POC Potassium (3.3-5.0) mmol/L Potassium 3.1 L (3.5-5.1) mmol/L POC Chloride (101-112) mmol/L Chloride 114 H (98-107) mmol/L Carbon Dioxide 9 L* (21-32) mmol/L POC Total CO2 (24-31) mmol/L Anion Gap 24.0 H (3-11) POC Anion Gap (16-25) mmol/L POC BUN (7-18) mg/dl BUN 29 H (7-18) mg/dl Creatinine 1.06 (0.6-1.2) mg/dl POC Creatinine (0.6-1.3) mg/dl Est Cr Clr Drug Dosing 54.4 Est GFR ( Amer) 70.9 ml/min Est GFR (Non-Af Amer) 61.2 ml/min BUN/Creatinine Ratio 27.0 H (10-20) Glucose 403 H* (70-99) mg/dl POC Glucose 368 H* 358 H* (70-99) mg/dl POC Glucose (other) (70-99) mg/dl Estimat Average Glucose Hemoglobin A1c Osmolality (280-300) mOsm/kg Lactate (0.4-2.0) mmol/L Calcium 11.3 H (8.5-10.1) mg/dl POC Ioniz Calcium Sesar (1.12-1.32) mmol/l Phosphorus 1.9 L D (2.5-4.9) mg/dl Magnesium 2.0 (1.8-2.4) mg/dl Total Bilirubin (0.2-1) mg/dl Direct Bilirubin (0-0.2) mg/dl AST (15-37) U/L ALT (12-78) U/L Alkaline Phosphatase (45-117) U/L Total Creatine Kinase (26-192) U/L Troponin I (0-0.045) ng/ml Total Protein (6.4-8.2) gm/dl Albumin (3.4-5.0) gm/dl Globulin (2.5-4.0) gm/dl Albumin/Globulin Ratio (0.9-2) Lipase (73-393) U/L Beta-Hydroxybutyric Acd 86.68 H (0.2-2.81) mg/dl Procalcitonin (0-0.5) ng/ml TSH (0.300-4.500) uIu/ml Urine Color Urine Appearance (Clear) Urine pH (4.5-7.5) Ur Specific Hallie (1.000-1.030) Urine Protein (Negative) Urine Glucose (UA) (Negative) Urine Ketones (Negative) Urine Blood (Negative) Urine Nitrite (Negative) Urine Bilirubin (Negative) Urine Urobilinogen (Negative) Ur Leukocyte Esterase (Negative) Urine WBC (Auto) (0-5) /hpf Urine RBC (Auto) (0-4) /hpf U Hyaline Cast (Auto) (0-5) /lpf U Epithel Cells (Auto) (0-5) /lpf Urine Bacteria (Auto) (Negative) Urine Yeast (None Prsent) Nasal Screen MRSA (PCR) (Negative) COVID-19 Eval Order SARS-CoV-2 (PCR) (Negative) 10/18/20 10/18/20 10/18/20 Range/Units 21:37 19:40 19:39 WBC (4.8-10.8) K/uL RBC (4.2-5.4) M/uL Hgb (12.0-16.0) g/dL POC Hgb (12.0-16.0) g/dl Hct (37-47) % POC Hct (37-47) % MCV (80-100) fL MCH (25-34) pg MCHC (32-36) g/dL RDW Std Deviation (36.4-46.3) fL RDW Coeff of Travis (11.5-14.5) % Plt Count (130-400) K/uL MPV (7.4-10.4) fL Immature Gran % (Auto) % Neut % (Auto) % Lymph % (Auto) % [place] % (Auto) % Eos % (Auto) % Baso % (Auto) % Neut # (Auto) (1.4-6.5) K/uL Lymph # (Auto) (1.2-3.4) K/uL [place] # (Auto) (0.11-0.59) K/uL Eos # (Auto) (0-0.5) K/uL Baso # (Auto) (0-0.2) K/uL Immature Gran # (Auto) (0.00-0.02) K/uL Echinocytes PT (9.0-12.0) Seconds INR (0.9-1.1) APTT (21.0-31.0) Seconds PTT Ratio ABG pH 7.25 L (7.35-7.45) ABG pCO2 12 L (35-46) mmHg ABG pO2 121 H (80-95) mmHg ABG HCO3 5 L (19-24) mmol/L ABG O2 Saturation 98.3 H (90-95) % ABG Base Excess -19.2 L (-9-1.8) mEq/L Shahram Test Pos (Pos) VBG pH (7.36-7.41) VBG pCO2 (38-50) mmHg VBG pO2 mmHg VBG HCO3 mmol/L VBG O2 Saturation % VBG Base Excess mEq/L Barometric Pressure 731.7 mm/Hg Oxygen Given Room Air POC Sodium (135-144) mmol/L Sodium 143 (136-145) mmol/L POC Potassium (3.3-5.0) mmol/L Potassium 3.1 L D (3.5-5.1) mmol/L POC Chloride (101-112) mmol/L Chloride 113 H (98-107) mmol/L Carbon Dioxide 8 L* (21-32) mmol/L POC Total CO2 (24-31) mmol/L Anion Gap 22.0 H (3-11) POC Anion Gap (16-25) mmol/L POC BUN (7-18) mg/dl BUN 29 H (7-18) mg/dl Creatinine 1.02 (0.6-1.2) mg/dl POC Creatinine (0.6-1.3) mg/dl Est Cr Clr Drug Dosing 56.6 Est GFR ( Amer) 74.3 ml/min Est GFR (Non-Af Amer) 64.1 ml/min BUN/Creatinine Ratio 28.1 H (10-20) Glucose 403 H* (70-99) mg/dl POC Glucose (70-99) mg/dl POC Glucose (other) (70-99) mg/dl Estimat Average Glucose Hemoglobin A1c Osmolality (280-300) mOsm/kg Lactate (0.4-2.0) mmol/L Calcium 11.0 H (8.5-10.1) mg/dl POC Ioniz Calcium Sesar (1.12-1.32) mmol/l Phosphorus (2.5-4.9) mg/dl Magnesium (1.8-2.4) mg/dl Total Bilirubin (0.2-1) mg/dl Direct Bilirubin (0-0.2) mg/dl AST (15-37) U/L ALT (12-78) U/L Alkaline Phosphatase (45-117) U/L Total Creatine Kinase (26-192) U/L Troponin I (0-0.045) ng/ml Total Protein (6.4-8.2) gm/dl Albumin (3.4-5.0) gm/dl Globulin (2.5-4.0) gm/dl Albumin/Globulin Ratio (0.9-2) Lipase (73-393) U/L Beta-Hydroxybutyric Acd 81.97 H (0.2-2.81) mg/dl Procalcitonin (0-0.5) ng/ml TSH (0.300-4.500) uIu/ml Urine Color Urine Appearance (Clear) Urine pH (4.5-7.5) Ur Specific Hallie (1.000-1.030) Urine Protein (Negative) Urine Glucose (UA) (Negative) Urine Ketones (Negative) Urine Blood (Negative) Urine Nitrite (Negative) Urine Bilirubin (Negative) Urine Urobilinogen (Negative) Ur Leukocyte Esterase (Negative) Urine WBC (Auto) (0-5) /hpf Urine RBC (Auto) (0-4) /hpf U Hyaline Cast (Auto) (0-5) /lpf U Epithel Cells (Auto) (0-5) /lpf Urine Bacteria (Auto) (Negative) Urine Yeast (None Prsent) Nasal Screen MRSA (PCR) Negative (Negative) COVID-19 Eval Order SARS-CoV-2 (PCR) (Negative) 10/18/20 10/18/20 10/18/20 Range/Units 17:35 17:16 15:39 WBC (4.8-10.8) K/uL RBC (4.2-5.4) M/uL Hgb (12.0-16.0) g/dL POC Hgb (12.0-16.0) g/dl Hct (37-47) % POC Hct (37-47) % MCV (80-100) fL MCH (25-34) pg MCHC (32-36) g/dL RDW Std Deviation (36.4-46.3) fL RDW Coeff of Travis (11.5-14.5) % Plt Count (130-400) K/uL MPV (7.4-10.4) fL Immature Gran % (Auto) % Neut % (Auto) % Lymph % (Auto) % [place] % (Auto) % Eos % (Auto) % Baso % (Auto) % Neut # (Auto) (1.4-6.5) K/uL Lymph # (Auto) (1.2-3.4) K/uL [place] # (Auto) (0.11-0.59) K/uL Eos # (Auto) (0-0.5) K/uL Baso # (Auto) (0-0.2) K/uL Immature Gran # (Auto) (0.00-0.02) K/uL Echinocytes PT (9.0-12.0) Seconds INR (0.9-1.1) APTT (21.0-31.0) Seconds PTT Ratio ABG pH (7.35-7.45) ABG pCO2 (35-46) mmHg ABG pO2 (80-95) mmHg ABG HCO3 (19-24) mmol/L ABG O2 Saturation (90-95) % ABG Base Excess (-9-1.8) mEq/L Shahram Test (Pos) VBG pH (7.36-7.41) VBG pCO2 (38-50) mmHg VBG pO2 mmHg VBG HCO3 mmol/L VBG O2 Saturation % VBG Base Excess mEq/L Barometric Pressure mm/Hg Oxygen Given POC Sodium (135-144) mmol/L Sodium (136-145) mmol/L POC Potassium (3.3-5.0) mmol/L Potassium (3.5-5.1) mmol/L POC Chloride (101-112) mmol/L Chloride (98-107) mmol/L Carbon Dioxide (21-32) mmol/L POC Total CO2 (24-31) mmol/L Anion Gap (3-11) POC Anion Gap (16-25) mmol/L POC BUN (7-18) mg/dl BUN (7-18) mg/dl Creatinine (0.6-1.2) mg/dl POC Creatinine (0.6-1.3) mg/dl Est Cr Clr Drug Dosing Est GFR ( Amer) ml/min Est GFR (Non-Af Amer) ml/min BUN/Creatinine Ratio (10-20) Glucose (70-99) mg/dl POC Glucose 443 H* (70-99) mg/dl POC Glucose (other) (70-99) mg/dl Estimat Average Glucose Hemoglobin A1c Osmolality (280-300) mOsm/kg Lactate 1.8 (0.4-2.0) mmol/L Calcium (8.5-10.1) mg/dl POC Ioniz Calcium Sesar (1.12-1.32) mmol/l Phosphorus (2.5-4.9) mg/dl Magnesium (1.8-2.4) mg/dl Total Bilirubin (0.2-1) mg/dl Direct Bilirubin (0-0.2) mg/dl AST (15-37) U/L ALT (12-78) U/L Alkaline Phosphatase (45-117) U/L Total Creatine Kinase (26-192) U/L Troponin I (0-0.045) ng/ml Total Protein (6.4-8.2) gm/dl Albumin (3.4-5.0) gm/dl Globulin (2.5-4.0) gm/dl Albumin/Globulin Ratio (0.9-2) Lipase (73-393) U/L Beta-Hydroxybutyric Acd (0.2-2.81) mg/dl Procalcitonin (0-0.5) ng/ml TSH (0.300-4.500) uIu/ml Urine Color Yellow Urine Appearance Clear (Clear) Urine pH 5.0 (4.5-7.5) Ur Specific Hallie 1.026 (1.000-1.030) Urine Protein 1+ H (Negative) Urine Glucose (UA) 3+ H (Negative) Urine Ketones 4+ H (Negative) Urine Blood 2+ H (Negative) Urine Nitrite Negative (Negative) Urine Bilirubin Negative (Negative) Urine Urobilinogen Negative (Negative) Ur Leukocyte Esterase Negative (Negative) Urine WBC (Auto) 10-30 H (0-5) /hpf Urine RBC (Auto) 10-30 H (0-4) /hpf U Hyaline Cast (Auto) 0 (0-5) /lpf U Epithel Cells (Auto) >30 H (0-5) /lpf Urine Bacteria (Auto) 1+ H (Negative) Urine Yeast Budding A (None Prsent) Nasal Screen MRSA (PCR) (Negative) COVID-19 Eval Order SARS-CoV-2 (PCR) (Negative) 10/18/20 10/18/20 10/18/20 Range/Units 15:17 15:17 14:43 WBC (4.8-10.8) K/uL RBC (4.2-5.4) M/uL Hgb (12.0-16.0) g/dL POC Hgb (12.0-16.0) g/dl Hct (37-47) % POC Hct (37-47) % MCV (80-100) fL MCH (25-34) pg MCHC (32-36) g/dL RDW Std Deviation (36.4-46.3) fL RDW Coeff of Travis (11.5-14.5) % Plt Count (130-400) K/uL MPV (7.4-10.4) fL Immature Gran % (Auto) % Neut % (Auto) % Lymph % (Auto) % [place] % (Auto) % Eos % (Auto) % Baso % (Auto) % Neut # (Auto) (1.4-6.5) K/uL Lymph # (Auto) (1.2-3.4) K/uL [place] # (Auto) (0.11-0.59) K/uL Eos # (Auto) (0-0.5) K/uL Baso # (Auto) (0-0.2) K/uL Immature Gran # (Auto) (0.00-0.02) K/uL Echinocytes PT (9.0-12.0) Seconds INR (0.9-1.1) APTT (21.0-31.0) Seconds PTT Ratio ABG pH (7.35-7.45) ABG pCO2 (35-46) mmHg ABG pO2 (80-95) mmHg ABG HCO3 (19-24) mmol/L ABG O2 Saturation (90-95) % ABG Base Excess (-9-1.8) mEq/L Shahram Test (Pos) VBG pH 7.18 L (7.36-7.41) VBG pCO2 25 L (38-50) mmHg VBG pO2 20 mmHg VBG HCO3 9 mmol/L VBG O2 Saturation < 60.0 % VBG Base Excess -17.6 mEq/L Barometric Pressure 732.1 mm/Hg Oxygen Given POC Sodium (135-144) mmol/L Sodium (136-145) mmol/L POC Potassium (3.3-5.0) mmol/L Potassium (3.5-5.1) mmol/L POC Chloride (101-112) mmol/L Chloride (98-107) mmol/L Carbon Dioxide (21-32) mmol/L POC Total CO2 (24-31) mmol/L Anion Gap (3-11) POC Anion Gap (16-25) mmol/L POC BUN (7-18) mg/dl BUN (7-18) mg/dl Creatinine (0.6-1.2) mg/dl POC Creatinine (0.6-1.3) mg/dl Est Cr Clr Drug Dosing Est GFR ( Amer) ml/min Est GFR (Non-Af Amer) ml/min BUN/Creatinine Ratio (10-20) Glucose (70-99) mg/dl POC Glucose (70-99) mg/dl POC Glucose (other) (70-99) mg/dl Estimat Average Glucose Hemoglobin A1c Osmolality (280-300) mOsm/kg Lactate 2.9 H* (0.4-2.0) mmol/L Calcium (8.5-10.1) mg/dl POC Ioniz Calcium Sesar (1.12-1.32) mmol/l Phosphorus (2.5-4.9) mg/dl Magnesium (1.8-2.4) mg/dl Total Bilirubin (0.2-1) mg/dl Direct Bilirubin (0-0.2) mg/dl AST (15-37) U/L ALT (12-78) U/L Alkaline Phosphatase (45-117) U/L Total Creatine Kinase (26-192) U/L Troponin I (0-0.045) ng/ml Total Protein (6.4-8.2) gm/dl Albumin (3.4-5.0) gm/dl Globulin (2.5-4.0) gm/dl Albumin/Globulin Ratio (0.9-2) Lipase (73-393) U/L Beta-Hydroxybutyric Acd (0.2-2.81) mg/dl Procalcitonin (0-0.5) ng/ml TSH (0.300-4.500) uIu/ml Urine Color Urine Appearance (Clear) Urine pH (4.5-7.5) Ur Specific Hallie (1.000-1.030) Urine Protein (Negative) Urine Glucose (UA) (Negative) Urine Ketones (Negative) Urine Blood (Negative) Urine Nitrite (Negative) Urine Bilirubin (Negative) Urine Urobilinogen (Negative) Ur Leukocyte Esterase (Negative) Urine WBC (Auto) (0-5) /hpf Urine RBC (Auto) (0-4) /hpf U Hyaline Cast (Auto) (0-5) /lpf U Epithel Cells (Auto) (0-5) /lpf Urine Bacteria (Auto) (Negative) Urine Yeast (None Prsent) Nasal Screen MRSA (PCR) (Negative) COVID-19 Eval Order SARS-CoV-2 (PCR) NEGATIVE (Negative) 10/18/20 10/18/20 10/18/20 Range/Units 14:43 14:30 14:25 WBC (4.8-10.8) K/uL RBC (4.2-5.4) M/uL Hgb (12.0-16.0) g/dL POC Hgb 14.3 (12.0-16.0) g/dl Hct (37-47) % POC Hct 42 (37-47) % MCV (80-100) fL MCH (25-34) pg MCHC (32-36) g/dL RDW Std Deviation (36.4-46.3) fL RDW Coeff of Travis (11.5-14.5) % Plt Count (130-400) K/uL MPV (7.4-10.4) fL Immature Gran % (Auto) % Neut % (Auto) % Lymph % (Auto) % [place] % (Auto) % Eos % (Auto) % Baso % (Auto) % Neut # (Auto) (1.4-6.5) K/uL Lymph # (Auto) (1.2-3.4) K/uL [place] # (Auto) (0.11-0.59) K/uL Eos # (Auto) (0-0.5) K/uL Baso # (Auto) (0-0.2) K/uL Immature Gran # (Auto) (0.00-0.02) K/uL Echinocytes PT (9.0-12.0) Seconds INR (0.9-1.1) APTT (21.0-31.0) Seconds PTT Ratio ABG pH (7.35-7.45) ABG pCO2 (35-46) mmHg ABG pO2 (80-95) mmHg ABG HCO3 (19-24) mmol/L ABG O2 Saturation (90-95) % ABG Base Excess (-9-1.8) mEq/L Shahram Test (Pos) VBG pH (7.36-7.41) VBG pCO2 (38-50) mmHg VBG pO2 mmHg VBG HCO3 mmol/L VBG O2 Saturation % VBG Base Excess mEq/L Barometric Pressure mm/Hg Oxygen Given POC Sodium 140 (135-144) mmol/L Sodium (136-145) mmol/L POC Potassium 2.7 L (3.3-5.0) mmol/L Potassium (3.5-5.1) mmol/L POC Chloride 109 (101-112) mmol/L Chloride (98-107) mmol/L Carbon Dioxide (21-32) mmol/L POC Total CO2 8 L* (24-31) mmol/L Anion Gap (3-11) POC Anion Gap 27.0 H (16-25) mmol/L POC BUN 30 H (7-18) mg/dl BUN (7-18) mg/dl Creatinine (0.6-1.2) mg/dl POC Creatinine 0.5 L (0.6-1.3) mg/dl Est Cr Clr Drug Dosing Est GFR ( Amer) ml/min Est GFR (Non-Af Amer) ml/min BUN/Creatinine Ratio (10-20) Glucose (70-99) mg/dl POC Glucose (70-99) mg/dl POC Glucose (other) 539 H* (70-99) mg/dl Estimat Average Glucose Hemoglobin A1c Osmolality 345 H (280-300) mOsm/kg Lactate (0.4-2.0) mmol/L Calcium (8.5-10.1) mg/dl POC Ioniz Calcium Sesar 1.62 H* (1.12-1.32) mmol/l Phosphorus (2.5-4.9) mg/dl Magnesium (1.8-2.4) mg/dl Total Bilirubin (0.2-1) mg/dl Direct Bilirubin (0-0.2) mg/dl AST (15-37) U/L ALT (12-78) U/L Alkaline Phosphatase (45-117) U/L Total Creatine Kinase (26-192) U/L Troponin I (0-0.045) ng/ml Total Protein (6.4-8.2) gm/dl Albumin (3.4-5.0) gm/dl Globulin (2.5-4.0) gm/dl Albumin/Globulin Ratio (0.9-2) Lipase (73-393) U/L Beta-Hydroxybutyric Acd (0.2-2.81) mg/dl Procalcitonin (0-0.5) ng/ml TSH (0.300-4.500) uIu/ml Urine Color Urine Appearance (Clear) Urine pH (4.5-7.5) Ur Specific Hallie (1.000-1.030) Urine Protein (Negative) Urine Glucose (UA) (Negative) Urine Ketones (Negative) Urine Blood (Negative) Urine Nitrite (Negative) Urine Bilirubin (Negative) Urine Urobilinogen (Negative) Ur Leukocyte Esterase (Negative) Urine WBC (Auto) (0-5) /hpf Urine RBC (Auto) (0-4) /hpf U Hyaline Cast (Auto) (0-5) /lpf U Epithel Cells (Auto) (0-5) /lpf Urine Bacteria (Auto) (Negative) Urine Yeast (None Prsent) Nasal Screen MRSA (PCR) (Negative) COVID-19 Eval Order Covid19 at [facility] SARS-CoV-2 (PCR) (Negative) 10/18/20 10/18/20 10/18/20 Range/Units 14:25 14:25 14:25 WBC (4.8-10.8) K/uL RBC (4.2-5.4) M/uL Hgb (12.0-16.0) g/dL POC Hgb (12.0-16.0) g/dl Hct (37-47) % POC Hct (37-47) % MCV (80-100) fL MCH (25-34) pg MCHC (32-36) g/dL RDW Std Deviation (36.4-46.3) fL RDW Coeff of Travis (11.5-14.5) % Plt Count (130-400) K/uL MPV (7.4-10.4) fL Immature Gran % (Auto) % Neut % (Auto) % Lymph % (Auto) % [place] % (Auto) % Eos % (Auto) % Baso % (Auto) % Neut # (Auto) (1.4-6.5) K/uL Lymph # (Auto) (1.2-3.4) K/uL [place] # (Auto) (0.11-0.59) K/uL Eos # (Auto) (0-0.5) K/uL Baso # (Auto) (0-0.2) K/uL Immature Gran # (Auto) (0.00-0.02) K/uL Echinocytes PT 11.4 (9.0-12.0) Seconds INR 1.1 (0.9-1.1) APTT < 20.0 L (21.0-31.0) Seconds PTT Ratio 0.8 ABG pH (7.35-7.45) ABG pCO2 (35-46) mmHg ABG pO2 (80-95) mmHg ABG HCO3 (19-24) mmol/L ABG O2 Saturation (90-95) % ABG Base Excess (-9-1.8) mEq/L Shahram Test (Pos) VBG pH (7.36-7.41) VBG pCO2 (38-50) mmHg VBG pO2 mmHg VBG HCO3 mmol/L VBG O2 Saturation % VBG Base Excess mEq/L Barometric Pressure mm/Hg Oxygen Given POC Sodium (135-144) mmol/L Sodium 138 (136-145) mmol/L POC Potassium (3.3-5.0) mmol/L Potassium 2.6 L (3.5-5.1) mmol/L POC Chloride (101-112) mmol/L Chloride 104 (98-107) mmol/L Carbon Dioxide 8 L* (21-32) mmol/L POC Total CO2 (24-31) mmol/L Anion Gap 26.0 H (3-11) POC Anion Gap (16-25) mmol/L POC BUN (7-18) mg/dl BUN 29 H (7-18) mg/dl Creatinine 1.23 H (0.6-1.2) mg/dl POC Creatinine (0.6-1.3) mg/dl Est Cr Clr Drug Dosing Not Reportable Est GFR ( Amer) 59.2 ml/min Est GFR (Non-Af Amer) 51.1 ml/min BUN/Creatinine Ratio 23.4 H (10-20) Glucose 537 H* (70-99) mg/dl POC Glucose (70-99) mg/dl POC Glucose (other) (70-99) mg/dl Estimat Average Glucose Hemoglobin A1c Osmolality (280-300) mOsm/kg Lactate (0.4-2.0) mmol/L Calcium 12.6 H* (8.5-10.1) mg/dl POC Ioniz Calcium Sesar (1.12-1.32) mmol/l Phosphorus 3.2 (2.5-4.9) mg/dl Magnesium 2.3 (1.8-2.4) mg/dl Total Bilirubin 0.5 (0.2-1) mg/dl Direct Bilirubin < 0.1 (0-0.2) mg/dl AST 11 L (15-37) U/L ALT 17 (12-78) U/L Alkaline Phosphatase 222 H (45-117) U/L Total Creatine Kinase 98 (26-192) U/L Troponin I < 0.015 (0-0.045) ng/ml Total Protein 8.9 H (6.4-8.2) gm/dl Albumin 2.2 L (3.4-5.0) gm/dl Globulin 6.7 H (2.5-4.0) gm/dl Albumin/Globulin Ratio 0.3 L (0.9-2) Lipase 219 (73-393) U/L Beta-Hydroxybutyric Acd 107.88 H (0.2-2.81) mg/dl Procalcitonin 0.79 H (0-0.5) ng/ml TSH 0.515 (0.300-4.500) uIu/ml Urine Color Urine Appearance (Clear) Urine pH (4.5-7.5) Ur Specific Hallie (1.000-1.030) Urine Protein (Negative) Urine Glucose (UA) (Negative) Urine Ketones (Negative) Urine Blood (Negative) Urine Nitrite (Negative) Urine Bilirubin (Negative) Urine Urobilinogen (Negative) Ur Leukocyte Esterase (Negative) Urine WBC (Auto) (0-5) /hpf Urine RBC (Auto) (0-4) /hpf U Hyaline Cast (Auto) (0-5) /lpf U Epithel Cells (Auto) (0-5) /lpf Urine Bacteria (Auto) (Negative) Urine Yeast (None Prsent) Nasal Screen MRSA (PCR) (Negative) COVID-19 Eval Order SARS-CoV-2 (PCR) (Negative) 10/18/20 10/18/20 Range/Units 14:25 14:15 WBC 47.94 H* (4.8-10.8) K/uL RBC 4.37 (4.2-5.4) M/uL Hgb 13.5 (12.0-16.0) g/dL POC Hgb (12.0-16.0) g/dl Hct 39.3 (37-47) % POC Hct (37-47) % MCV 89.9 (80-100) fL MCH 30.9 (25-34) pg MCHC 34.4 (32-36) g/dL RDW Std Deviation 45.2 (36.4-46.3) fL RDW Coeff of Travis 13.7 (11.5-14.5) % Plt Count 844 H (130-400) K/uL MPV 9.1 (7.4-10.4) fL Immature Gran % (Auto) 4.4 % Neut % (Auto) 82.5 % Lymph % (Auto) 5.7 % [place] % (Auto) 7.0 % Eos % (Auto) 0.0 % Baso % (Auto) 0.4 % Neut # (Auto) 39.57 H (1.4-6.5) K/uL Lymph # (Auto) 2.71 (1.2-3.4) K/uL [place] # (Auto) 3.35 H (0.11-0.59) K/uL Eos # (Auto) 0.00 (0-0.5) K/uL Baso # (Auto) 0.21 H (0-0.2) K/uL Immature Gran # (Auto) 2.10 H (0.00-0.02) K/uL Echinocytes 2+ PT (9.0-12.0) Seconds INR (0.9-1.1) APTT (21.0-31.0) Seconds PTT Ratio ABG pH (7.35-7.45) ABG pCO2 (35-46) mmHg ABG pO2 (80-95) mmHg ABG HCO3 (19-24) mmol/L ABG O2 Saturation (90-95) % ABG Base Excess (-9-1.8) mEq/L Shahram Test (Pos) VBG pH (7.36-7.41) VBG pCO2 (38-50) mmHg VBG pO2 mmHg VBG HCO3 mmol/L VBG O2 Saturation % VBG Base Excess mEq/L Barometric Pressure mm/Hg Oxygen Given POC Sodium (135-144) mmol/L Sodium (136-145) mmol/L POC Potassium (3.3-5.0) mmol/L Potassium (3.5-5.1) mmol/L POC Chloride (101-112) mmol/L Chloride (98-107) mmol/L Carbon Dioxide (21-32) mmol/L POC Total CO2 (24-31) mmol/L Anion Gap (3-11) POC Anion Gap (16-25) mmol/L POC BUN (7-18) mg/dl BUN (7-18) mg/dl Creatinine (0.6-1.2) mg/dl POC Creatinine (0.6-1.3) mg/dl Est Cr Clr Drug Dosing Est GFR ( Amer) ml/min Est GFR (Non-Af Amer) ml/min BUN/Creatinine Ratio (10-20) Glucose (70-99) mg/dl POC Glucose 529 H* (70-99) mg/dl POC Glucose (other) (70-99) mg/dl Estimat Average Glucose Hemoglobin A1c Osmolality (280-300) mOsm/kg Lactate (0.4-2.0) mmol/L Calcium (8.5-10.1) mg/dl POC Ioniz Calcium Sesar (1.12-1.32) mmol/l Phosphorus (2.5-4.9) mg/dl Magnesium (1.8-2.4) mg/dl Total Bilirubin (0.2-1) mg/dl Direct Bilirubin (0-0.2) mg/dl AST (15-37) U/L ALT (12-78) U/L Alkaline Phosphatase (45-117) U/L Total Creatine Kinase (26-192) U/L Troponin I (0-0.045) ng/ml Total Protein (6.4-8.2) gm/dl Albumin (3.4-5.0) gm/dl Globulin (2.5-4.0) gm/dl Albumin/Globulin Ratio (0.9-2) Lipase (73-393) U/L Beta-Hydroxybutyric Acd (0.2-2.81) mg/dl Procalcitonin (0-0.5) ng/ml TSH (0.300-4.500) uIu/ml Urine Color Urine Appearance (Clear) Urine pH (4.5-7.5) Ur Specific Hallie (1.000-1.030) Urine Protein (Negative) Urine Glucose (UA) (Negative) Urine Ketones (Negative) Urine Blood (Negative) Urine Nitrite (Negative) Urine Bilirubin (Negative) Urine Urobilinogen (Negative) Ur Leukocyte Esterase (Negative) Urine WBC (Auto) (0-5) /hpf Urine RBC (Auto) (0-4) /hpf U Hyaline Cast (Auto) (0-5) /lpf U Epithel Cells (Auto) (0-5) /lpf Urine Bacteria (Auto) (Negative) Urine Yeast (None Prsent) Nasal Screen MRSA (PCR) (Negative) COVID-19 Eval Order SARS-CoV-2 (PCR) (Negative)
[2020-10-19 07:17] LABS: ALC (manual) 1.92 K/uL (1.2-3.4); ANC (manual) 40.46 K/uL (1.4-6.5); Echinocytes 1+; Lymphocytes # (manual) 1.92 K/uL (1.2-3.4); Lymphocytes % (manual) 4.3 %; Monocytes # (manual) 1.92 K/uL (0.11-0.59); Monocytes % (manual) 4.3 %; Myelocytes % (manual) 0.9 %; Neutrophils # (manual) 40.46 K/uL (1.4-6.5); Neutrophils % (manual) 90.5 %
[2020-10-19] MEDS ORDERED: D5W AND 1/2NSS + 20MEQ KCL 20 MEQ/1,000 ML BAG IV SCH (07:30)
--- NOTE | 2020-10-19 07:31 | CT Scan Report ---
CT ankle LT wo con HISTORY: 50 years-old Female LLE ulcer patient presents with soft tissue ulcer of the left hindfoot. Clinical concern for osteomyelitis. COMPARISON: Left ankle radiographs 10/18/2020 TECHNIQUE: Multiple axial CT images of the left ankle were obtained without the use of IV contrast. A dose lowering technique was used consistent with the principals of ALARA. FINDINGS: Limited exam secondary to positioning. Additionally, the calcaneus is partially outside the field-of- view. Demineralized appearance of the bones. There is mild tibiotalar with mild to moderate subtalar osteoarthritis. Corticated ossification of the medial malleolus is suggestive of a chronic fracture. Soft tissue ulceration of the dorsal hindfoot/heel distribution is noted with skin thickening, modera te subcutaneous edema and subcutaneous emphysema which tracks into the lower calf subcutaneous tissue s. No discrete drainable fluid collection. There is cortical irregularity and lucency of the calcaneu s deep to this distribution measuring up to 10 mm on image 49. Enthesophytes of the calcaneus. Extensive arterial calcifications. Soft tissue gas extends into the thickened Achilles tendon. IMPRESSION: 1. Soft tissue ulcer of the dorsal hindfoot with subcutaneous emphysema and cellulitis changes. The s oft tissue gas may be secondary to direct extension from the open wound versus necrotizing fasciitis. 2. Cortical irregularity with associated lucencies of the dorsal aspect of the posterior calcaneus ar e compatible with osteomyelitis. 3. No abscess. ACT 112: Negative or not required by law. The above report was generated using voice recognition software. It may contain grammatical, syntax o r spelling errors. Electronically signed by: Josue Rodriguez M.D. 10/19/2020 7:30 AM
--- NOTE | 2020-10-19 08:31 | Orthopedic Consultation ---
Date of Service October 19, 2020 Assessment & Plan (1) Cellulitis: (2) Decubitus ulcer of left heel: Acute decubitus heel ulcer likely a source of polymicrobial infection. There is no indication for urgent surgical debridement. Subcutaneous air is likely from direct communication from the wound. Definitive management would likely be an amputation. Given her critical illness, mental status, and potential for other sources, recommend further resuscitation and medical management. I recommend superficial wound care and ongoing antibiotic therapy. Will evaluate for progress. Would appreciate wound care's opinion and treatment. History of Present Illness Reason for Consultation: . Requesting Physician: . 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 She was noted to have a severe metabolic acidosis consistent with DKA, hypokalemia, and significant leukocytosis. Consulted for care of left heel ulcer. Patient unable to provide history. Chart reviewed. Discussed with nursing and ICU staff. Patient cared for without home nursing by her at home. She has a DNR/DNI status. Allergies Allergy/AdvReac Type Severity Reaction Status Date / Time No Known Allergies Allergy Verified 10/18/20 18:10 Home Medications Medication Instructions Recorded Confirmed Type Toviaz 8 mg PO DAILY 08/28/19 10/18/20 History aspirin 81 mg PO DAILY 08/28/19 10/18/20 History atorvastatin 40 mg PO DAILY 08/28/19 10/18/20 History clopidogrel [Plavix] 75 mg PO DAILY 08/28/19 10/18/20 History insulin aspart U-100 [Novolog 0 unit SUBCUT ACHS 08/28/19 10/18/20 History Flexpen U-100 Insulin] lisinopril 20 mg PO DAILY 08/28/19 10/18/20 History metformin 500 mg PO BID 08/28/19 10/18/20 History metoprolol succinate 50 mg PO DAILY 08/28/19 10/18/20 History pediatric multivitamin 2 tab PO DAILY 08/28/19 10/18/20 History Lantus Solostar U-100 Insulin 50 unit SUBCUT BID #1 pen 09/01/19 10/18/20 Rx Past Med/Surg History Medical History Chronic hypertension Diabetes Right middle cerebral artery stroke Surgical History History of cholecystectomy Social History Smoking Status: Never smoker Preferred Language: Armenian Communication Ability: Impaired Communication Ability Comment: hx of r mca stroke Trapper Animal Required: No Beliefs That Will Affect Care: None Current Living Situation: Spouse Current Living Situation Comment: ? neglect Feels Safe at Home: Yes Assistive Devices: Wheelchair Review of Systems All systems reviewed & are unremarkable except as noted in HPI & below. Physical Exam General: Nonverbal, withdraws to pain on exam to left lower extremity. No acute distress. LLE: The dressing was removed. There was a large, full-thickness skin ulcer with granulated tissue about the Achilles tendon and proximal heel. No exposed bone. Chronic eschar. There is punctate areas that communicate to air. No obvious crepitus throughout the calf but it is quite tender. I can palpate a dorsalis pedis and posterior tibial pulse. No skin breakdown about the toes. Less than 3-second cap refill the remainder the foot. Results & Data Results & Data Laboratory Results . Laboratory Tests 10/18/20 10/18/20 10/18/20 14:25 15:17 17:16 WBC 47.94 H* Hgb Neutrophils # (Manual) Lactate 2.9 H* 1.8 10/19/20 05:43 WBC 44.71 H* Hgb 11.2 L Neutrophils # (Manual) 40.46 H Lactate Diagnostic Findings X-rays and CT scan evaluated. There is no obvious abscess within the subcutaneous tissues nor obvious bone erosion from osteomyelitis. There is air within the tissues that are directly involved with the decubitus ulcer. There is some subcutaneous tracking and edema that extends along the Achilles, as expected from the exam. PG Care Time/CCT Total # of Minutes Spent Total Time Spent with Patient: Total time spent is greater than 50% in coordination of care (as documented) at patient's floor/unit and/or counseling patient: Coding Level of Care Code 24493 Inpt Consult Level 4 Diagnoses Cellulitis L03.90 Decubitus ulcer of left heel L89.629
--- NOTE | 2020-10-19 08:32 | Ultrasound Report ---
ULTRASOUND LEFT LOWER EXTREMITY ARTERIAL CLINICAL HISTORY: Left leg ulcer. Pain. COMPARISON STUDY: No priors. TECHNIQUE: Real-time grayscale and color Doppler sonography of the arteries of the left lower extremi ty is performed from the inguinal crease to the foot. Ankle-brachial indices were not assessed on thi s portable examination. FINDINGS: Atherosclerotic plaque and irregularity seen throughout the arteries of the left lower extr emity. There are triphasic arterial waveforms in the left common femoral artery with velocities measu ring up to 142 cm/s. The profunda femoris artery is patent with velocities measuring up to 140 cm/s. There is complete thrombosis of the proximal and mid portions of the left superficial femoral artery. Reconstitution of flow is seen within the distal superficial femoral artery with velocities measurin g up to 130 cm/s. There are blunted monophasic waveforms in the distal superficial femoral artery, po pliteal artery, and the calf arteries. The popliteal artery is patent with velocities measuring up to 20 cm/s. There is poor visualization of the calf arteries. The anterior tibial artery was not visual ized and may be thrombosed. Portions of the peroneal vein appear patent with velocities measuring up to 11 cm/s. Portions of the posterior tibial artery appear patent. The distal calf arteries and dorsa lis pedis artery were not visualized due to overlying bandaging material. IMPRESSION: 1. Advanced atherosclerotic disease in the left lower extremity. 2. There is a long segment of complete thrombosis within the proximal to mid portions of the left sup erficial femoral artery. 3. There is reconstitution of flow in the distal superficial femoral artery. 4. The calf arteries are not well assessed. The anterior tibial artery is obscured versus occluded. Dictated: 10/19/2020 8:06 AM Transcribed: 10/19/2020 8:25 AM Babs [id number] [facility] Electronically signed by: Navneet Darden M.D. 10/19/2020 8:31 AM
[2020-10-19] MEDS ORDERED: ACETAMINOPHEN 1000 MG/100 ML IV IV PRN (08:57)
[2020-10-19 09:01] LABS: Estimated Average Glucose 324 mg/dl; Hemoglobin A1C 12.9 % (4.5-5.6)
[2020-10-19] MEDS: INSULIN ASPART 100 UNITS/ML 3 ML PEN SC SCH ×5 (09:05→22:01)
[2020-10-19] MEDS ORDERED: MoRPHine SULFATE 2 MG/ML CARP ONE (09:10)
[2020-10-19] MEDS: MoRPHine SULFATE 2 MG/ML CARP IV PRN (09:11)
[2020-10-19 10:42] LABS: BUN Creatinine Ratio 20.7 (10-20); Calcium 10.7 mg/dl (8.5-10.1); Est GFR (African American) 83.1 ml/min; Est GFR (Non-African American) 71.7 ml/min; Magnesium 1.7 mg/dl (1.8-2.4); Potassium 3.4 mmol/L (3.5-5.1)
[2020-10-19] MEDS: METOPROLOL SUCC 50MG EXT REL TAB PO SCH (10:50)
[2020-10-19] MEDS: ATORVASTATIN 40 MG TAB PO SCH (10:50)
[2020-10-19] MEDS: ASPIRIN 81 MG ECTAB PO SCH (10:50)
[2020-10-19] MEDS: CLOPIDOGREL BISULFATE 75 MG TAB PO SCH (10:50)
[2020-10-19] MEDS: lisinopril 20 MG TAB PO SCH (10:50)
--- NOTE | 2020-10-19 11:09 | Critical Care Progress Note ---
Date of Service October 19, 2020 Assessment & Plan (1) Acute metabolic encephalopathy: Reason Critically Ill: 50-year-old male presents to the ICU with severe DKA and sepsis likely secondary to left heel ulceration. Neuro - Metabolic encephalopathy -Likely secondary to DKA and sepsis. Patient does have history of left MCA stroke with left hemiplegia -CT head without acute intracranial process. Chronic left territory MCA infarct redemonstrated -BUN within normal limits, LFTs unremarkable -Monitor, expect to improve with improvement in DKA Cardiac - Currently hemodynamically stable Troponin negative Continuous monitoring on telemetry Respiratory - Saturating well on room air Chest x-ray did not show any acute finding GI - N.p.o. RENAL/LYTES - Creatinine within normal limits, monitor routine BMPs Electrolyte abnormalities due to severe dehydration/DKA. Will replete as in dicated and continue with fluid resuscitation Lactic acidosisimproved following fluid resuscitation - Foleystrict I's and O's ENDO - DKAimproving. Continue with DKA protocol with insulin drip and fluid resuscitation. -Every 4 BMPs -Follow-up A1c -Can transition to glargine/sliding scale once patient's anion gap closed and bicarb improved --Hypercalcemia PTH 45.3 There is a component of primary hyper parathyroidism HEME - H&H stable, monitor routine CBCs ID - Sepsis Procalcitonin 0.79. COVID-19 PCR negative most likely source left heel ulcer plus possible cellulitis of back. Follow-up blood cultures and urine culture Wound culture pending of the left heel Orthopedic, wound as well as vascular surgery on board CPK within normal limit does not seem to be necrotizing fasciitis Continue broad-spectrum antibiotics Zosyn and daptomycin --Prophylaxis VTE: Heparin GI: None Lines: Peripheral Diet: N.p.o. Plan: In/out: +3.1 L, urine output 3200 mL There is no crepitus appreciated on the physical exam. Gas within the left lower extremity appreciated CT of the lower extremity is likely from direct medication from the ulcer DC clindamycin Continue with Zosyn and daptomycin. CPK within normal limit Case was discussed with Dr. Vieira at bedside. Continue with insulin drip and bridge when anion gap closes. Hypernatremia with hyperchloremia is likely from IV fluids. We will change to half NS. I have personally spent 42 minutes of critical care time in the direct management of this patient. This is a life/limb threatening event. This includes time spent evaluating patient, direct bedside care, chart review, placing orders, interpretation of diagnostic studies, discussion with consultants, patient, and family members, as well as other required patient management activities. This time is exclusive of all separately billable procedures, and teaching time and separate from and in addition to any other critical care service time. Please note the above document was generated using voice recognition software. It may contain grammatical, syntax or spelling errors. (2) DKA (diabetic ketoacidosis): (3) PVD (peripheral vascular disease): (4) Cellulitis: (5) Diabetic wet gangrene of the foot: Admission and Anticipated Discharge Date Admission Date: October 18, 2020 Subjective Patient seen and examined at bedside. No acute distress, no adverse events overnight. Patient is nonverbal currently. She is not following any commands. Currently on insulin drip. Blood pressure the time of examination systolic was 150 Has been afebrile. Saturating well on room air Review of Systems Review of Systems: Unobtainable due to mental health condition Physical Exam Physical Exam: Constitutional: No acute distress HEENT: EOMI, PERRLA Respiratory system: Decreased air entry bilaterally, no wheeze, no rhonchi, no crackles CVS: S1-S2 positive, no murmurs or gallops Abdomen: Soft, nontender, nondistended, positive bowel sounds x4 Extremities: +2 pulses bilaterally radialis/ dorsalis pedis, left-sided hemiplegia with contracture in the upper and lower extremity, left leg tender to palpation, there is full-thickness ulcer near the Achilles region with small hole, no granulation tissue. No crepitus appreciated Erythematous linear patch on the back, no flatulence or crepitus Neuro: Awake alert Psych: Unable to assess G/U: Positive Aguilar Skin: no rashes, warm and dry Lymphatic: no cervical or axillary lymphadenopathy Results & Data Results & Data ([facility]) Vital Signs (Past 12 Hours) Vital Signs Temp Pulse Resp BP Pulse Ox 10/19/20 08:00 90 10/19/20 06:24 36.6 C 91 H 23 141/83 H 100 10/19/20 06:20 36.6 C 88 23 100 10/19/20 06:10 36.6 C 91 H 22 10/19/20 06:00 36.6 C 93 H 19 10/19/20 05:50 36.6 C 94 H 16 10/19/20 05:40 36.6 C 94 H 19 10/19/20 05:30 36.5 C 93 H 22 10/19/20 05:20 36.5 C 93 H 16 10/19/20 05:10 36.5 C 93 H 19 10/19/20 05:00 36.5 C 94 H 18 10/19/20 04:50 36.5 C 92 H 17 10/19/20 04:40 36.5 C 92 H 20 10/19/20 04:30 36.5 C 90 21 10/19/20 04:20 36.6 C 93 H 20 10/19/20 04:19 36.6 C 93 H 18 156/104 H 100 10/19/20 04:13 93 H 21 99 10/19/20 03:50 36.4 C L 90 20 10/19/20 03:43 36.4 C L 94 H 17 145/102 H 100 10/19/20 03:13 36.3 C L 100 H 17 157/97 H 100 10/19/20 02:43 36.3 C L 88 36 H 111/60 100 10/19/20 02:13 36.3 C L 86 29 H 106/63 100 10/19/20 02:00 36.3 C L 95 H 25 H 100 10/19/20 01:43 36.2 C L 102 H 17 156/79 H 100 10/19/20 01:13 36.2 C L 102 H 24 155/83 H 100 10/19/20 01:00 36.2 C L 105 H 23 100 10/19/20 00:44 36.2 C L 103 H 31 H 100 10/19/20 00:43 36.2 C L 103 H 23 143/73 H 100 10/19/20 00:30 36.2 C L 103 H 33 H 100 10/19/20 00:13 36.2 C L 102 H 20 148/78 H 100 10/19/20 00:00 36.2 C L 102 H 20 100 10/18/20 23:43 36.1 C L 99 H 18 161/96 H 100 10/18/20 23:30 36.1 C L 102 H 27 H 98 10/18/20 23:13 36.1 C L 102 H 27 H 165/67 H 100 10/18/20 23:00 36.0 C L 102 H 28 H 100 10/19/20 05:43 10/19/20 09:56 Coding Level of Care Code Critical Care 1st 30-74 mins Diagnoses Acute metabolic encephalopathy G93.41 DKA (diabetic ketoacidosis) E13.10 Diabetes mellitus complication detail: without coma Diabetes mellitus type: other specified (including SALO) PVD (peripheral vascular disease) I73.9 Cellulitis L03.90 Diabetic wet gangrene of the foot E11.52 Time Spent (min) 42 (1) DKA (diabetic ketoacidosis) Diabetes mellitus complication detail: without coma Diabetes mellitus type: other specified (including SALO) Qualified Code(s): E13.10 - Other specified diabetes mellitus with ketoacidosis without coma
[2020-10-19] MEDS: METOPROLOL TARTRATE 1 MG/ML VIAL IV PRN ×2 (11:10→20:36)
[2020-10-19 11:13] LABS: Phosphorus 1.2 mg/dl (2.5-4.9)
[2020-10-19] MEDS ORDERED: POTASSIUM PHOSPHATE 15 MMOL in SODIUM CHLORIDE 0.9% 250 ML IV ONE (11:30)
[2020-10-19] MEDS ORDERED: INSULIN GLARGINE SOLOSTAR 100 UNITS/ML 3 ML PEN SC ONE ×2 (11:36→15:15)
[2020-10-19] MEDS ORDERED: DC IV INSULIN INFUSION 1 EA DEVI SCH (11:45)
--- NOTE | 2020-10-19 14:04 | Consultation ---
Date of Consultation October 19, 2020 Assessment & Plan (1) PVD (peripheral vascular disease): Pt with SFA occlusion with reconstitution and good dopplerable ant tib and dp pulse in LLE. Pt with acute LLE infection with severe leukocytosis, and being treated for DKA. No indications for vascular surgical intervention at this time since she continues to have flow to her foot and is asymptomatic from PAD d/t hemiplegia and does not ambulate. Recommend pt undergo definitive orthopedic surgical intervention when stable. Please call if needed. History of Present Illness Reason for Consultation: PAD LLE Attending Physician: James Woods DO History of Present Illness 50 yo f with multiple medical problems, including L sided hemiplegia from CVA in 2015, DMII, HTN, admitted with DKA and L heel wound infection, seen in consultation today for PAD noted on US. Pt currently nonverbal d/t MS changes, so HPI difficult to elicit. Length of time pt with L heel wound unknown, but reportedly pt's had been treating her at home. Pt nonambulatory d/t L sided hemiplegia. Further HPI unobtainable d/t current MS. Arterial US demonstrates L SFA occlusion with reconstitution. Allergies Allergy/AdvReac Type Severity Reaction Status Date / Time No Known Allergies Allergy Verified 10/18/20 18:10 Home Medications Medication Instructions Recorded Confirmed Type Toviaz 8 mg PO DAILY 08/28/19 10/18/20 History aspirin 81 mg PO DAILY 08/28/19 10/18/20 History atorvastatin 40 mg PO DAILY 08/28/19 10/18/20 History clopidogrel [Plavix] 75 mg PO DAILY 08/28/19 10/18/20 History insulin aspart U-100 [Novolog 0 unit SUBCUT ACHS 08/28/19 10/18/20 History Flexpen U-100 Insulin] lisinopril 20 mg PO DAILY 08/28/19 10/18/20 History metformin 500 mg PO BID 08/28/19 10/18/20 History metoprolol succinate 50 mg PO DAILY 08/28/19 10/18/20 History pediatric multivitamin 2 tab PO DAILY 08/28/19 10/18/20 History Lantus Solostar U-100 Insulin 50 unit SUBCUT BID #1 pen 09/01/19 10/18/20 Rx Patient History Medical History Chronic hypertension Diabetes Right middle cerebral artery stroke Surgical History History of cholecystectomy Social History Smoking Status: Never smoker Preferred Language: Greenlandic Communication Ability: Impaired Communication Ability Comment: hx of r mca stroke 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 neglect Feels Safe at Home: Yes Assistive Devices: Wheelchair Review of Systems Review of Systems: Unobtainable due to cognitive status Physical Exam Constitutional: well developed, well nourished, + ill appearing, + physical limitations (L sided hemiplegia) and comfortable; not in distress Neck: trachea midline Respiratory: normal respiratory effort, lungs clear to auscultation Auscultation: + diminished lung sounds Cardiovascular: Rate/Rhythm: regular rhythm and + tachycardic Vessels: femoral pulses present, posterior tibial pulses present (+1 RLE, No signal LLE), dorsalis pedis pulses present (+2 RLE, biphasic with doppler LLE) and radial pulses present; no carotid bruit and + abnormal peripheral pulses Extremiti es: + abnormal capillary refill (LLE great toe mottling, other toes cool without cap refill) Gastrointestinal (Abdomen): Inspection/Auscultation: abdomen normal to inspection and normal bowel sounds Percussion/Palpation: abdomen soft Musculoskeletal: Extremities: + muscle atrophy (LLE) Skin: + eschar (wet, purulent, foul odor, post ankle/calf/heel) Neurologic: moves all extremities (L hemiplegia) and + obtunded Psychiatric: Orientation: + not alert and + not oriented x 3 (awakens partia lly to name, but does not respond to questions) Results & Data ([facility]) Vital Signs (Past 12 Hours) Vital Signs Temp Pulse Resp BP Pulse Ox 10/19/20 11:10 95 H 177/88 H 10/19/20 08:00 90 10/19/20 06:24 36.6 C 91 H 23 141/83 H 100 10/19/20 06:20 36.6 C 88 23 100 10/19/20 06:10 36.6 C 91 H 22 100 10/19/21 06:00 36.6 C 93 H 19 10/19/20 05:50 36.6 C 94 H 16 10/19/20 05:40 36.6 C 94 H 19 10/19/20 05:30 36.5 C 93 H 22 10/19/20 05:20 36.5 C 93 H 16 10/19/20 05:10 36.5 C 93 H 19 10/19/20 05:00 36.5 C 94 H 18 10/19/20 04:50 36.5 C 92 H 17 10/19/20 04:40 36.5 C 92 H 20 10/19/20 04:30 36.5 C 90 21 10/19/20 04:20 36.6 C 93 H 20 10/19/20 04:19 36.6 C 93 H 18 156/104 H 10/19/20 04:13 93 H 21 10/19/20 03:50 36.4 C L 90 20 10/19/20 03:43 36.4 C L 94 H 17 145/102 H 10/19/20 03:13 36.3 C L 100 H 17 157/97 H 10/19/20 02:43 36.3 C L 88 36 H 111/60 10/19/20 02:13 36.3 C L 86 29 H 106/63 10/19/20 02:00 36.3 C L 95 H 25 H 100
[2020-10-19 14:32] LABS: BUN Creatinine Ratio 17.1 (10-20); Calcium 11.3 mg/dl (8.5-10.1); Creatinine Clr Calc Pharmacy 61.3 ml/min; Est GFR (African American) 85.3 ml/min; Est GFR (Non-African American) 73.6 ml/min; Magnesium 1.7 mg/dl (1.8-2.4); Phosphorus 1.7 mg/dl (2.5-4.9); Potassium 3.3 mmol/L (3.5-5.1)
--- NOTE | 2020-10-19 15:10 | Medical Student Progress Note ---
Date of Service October 19, 2020 Assessment & Plan (1) DKA (diabetic ketoacidosis): 50yo F with PMHx of HTN, HLD, IDDM, PVD, and CVA, admitted for management of DKA and sepsis secondary to foot ulcer with osteomyelitis. DKA (diabetic ketoacidosis): - DKA protocol - insulin drip, IVF, serial electrolytes Sepsis: - On admission WBC 49.7, lactate 2.9, pro-stefano 0.79 - Likely secondary to heel ulcer and/or cellulitis over her back. - Placed on Vancomycin/Zosyn and daptomycin . Heal ulcer with osteomyelitis: - CT showed soft tissue ulcer of the dorsal hindfoot with subcutaneous emphysema and cellulitis changes, as well as cortical irregularity with associated lucencies of the dorsal aspect of the posterior calcaneus compatible with osteomyelitis. - Vancomycin/Zosyn and daptomycin as above - Ortho consulted -no indication for urgent surgical debridement, but will likely require amputation once medically stabilized - Consulted wound care Hypokalemia: - Repleting- repeat BMP PVD (peripheral vascular disease): - LE duplex: atherosclerotic disease LLE, long segment of complete thrombosis within the proximal to mid portions of the left superficial femoral artery. Anterior tibial artery is obscured versus occluded. - Vascular consulted- no indication for surgical intervention at this time Stroke: - Hx significant chronic R MCA stroke - Continue statin, Plavix Code: DNR/DNI Diet: NPO Dispo: ICU Diabetes mellitus complication detail: without coma Diabetes mellitus type: other specified (including SALO) Qualified Code(s): E13.10 - Other specified diabetes mellitus with ketoacidosis without coma Admission and Anticipated Discharge Date Admission Date: October 18, 2020 Supervising Attestation I personally examined the patient and verified all polanco points of history and exam, discussed case, and agree with decision making with Yessenia Serrano MS4. resting at the time i see her. vitals noted nad breathing unlabored no accessory muscles no pallor or icterus sepsis related to stage 3 pressure ulcer of heel and subsequent osteomyelitis, in the setting of uncontrolled DM and followed by subsequent DKA - continue current ICU level care. appreciate regional engagement consultant input otherwise as above Subjective Patient assessed at bedside in the ICU. She is non-verbals and does no follow commands. Does no withdraw to palpation of abdomen Review of Systems Review of Systems: Limited by mental status Physical Exam Physical Exam: GENERAL: nad, does not respond to commands HEENT: atraumatic, non-icteric, external nose and pinna are normal CHEST: no wheezes, rhonchi or rales, normal respiratory effort CARDIOVASCULAR: heart regular rate and rhythm, no murmurs, gallops or rubs, no lower extremity edema ABD: nontender to palpation, nondistended, normal active bowel sounds SKIN: Left foot ulcer bandaged, no other rashes or suspicious lesions noted NEURO: non-verbal, does not respond to commands, withdraws to touch : pierre catheter in place Results & Data ([facility]) Vital Signs (Past 12 Hours) Vital Signs Temp Pulse Resp BP Pulse Ox 10/19/20 11:10 95 H 177/88 H 10/19/20 08:00 90 10/19/20 06:24 36.6 C 91 H 23 141/83 H 100 10/19/20 06:20 36.6 C 88 23 100 10/19/20 06:10 36.6 C 91 H 22 100 10/19/20 06:00 36.6 C 93 H 19 10/19/20 05:50 36.6 C 94 H 16 10/19/20 05:40 36.6 C 94 H 19 10/19/20 05:30 36.5 C 93 H 22 100 10/19/20 05:20 36.5 C 93 H 16 10/19/20 05:10 36.5 C 93 H 19 10/19/20 05:00 36.5 C 94 H 18 100 10/19/20 04:50 36.5 C 92 H 17 100 10/19/20 04:40 36.5 C 92 H 20 100 10/19/20 04:30 36.5 C 90 21 100 10/19/20 04:20 36.6 C 93 H 20 100 10/19/20 04:19 36.6 C 93 H 18 156/104 H 100 10/19/20 04:13 93 H 21 99 10/19/20 03:50 36.4 C L 90 20 10/19/20 03:43 36.4 C L 94 H 17 145/102 H 100 10/19/20 03:13 36.3 C L 100 H 17 157/97 H 100
--- NOTE | 2020-10-19 15:32 | Pharmacy Report ---
Pharmacy Glycemic Short Note 2 - Date of Service October 19, 2020 - Glycemic Short BSG Results (Last 24 hours): 10/18/20 10/18/20 10/18/20 17:35 19:40 21:49 Glucose 403 H* POC Glucose 443 H* 358 H* 10/18/20 10/18/20 10/18/20 21:50 22:41 22:50 Glucose 403 H* POC Glucose 368 H* 370 H* 10/19/20 10/19/20 10/19/20 01:03 01:36 02:00 Glucose 378 H* POC Glucose 376 H* 348 H* 10/19/20 10/19/20 10/19/20 03:01 03:55 04:57 Glucose POC Glucose 334 H* 275 H 255 H 10/19/20 10/19/20 10/19/20 05:43 06:02 07:03 Glucose 266 H POC Glucose 264 H 242 H 10/19/20 10/19/20 10/19/20 08:00 09:00 09:56 Glucose 255 H POC Glucose 254 H 257 H 10/19/20 10/19/20 10/19/20 10:15 11:05 11:58 Glucose POC Glucose 225 H 216 H 236 H 10/19/20 10/19/20 10/19/20 12:57 14:01 14:08 Glucose 215 H POC Glucose 215 H 188 H 10/19/20 15:01 Glucose POC Glucose 210 H OUTPATIENT ANTIDIABETIC REGIMEN: * novolog achs * Lantus 50 units BID * Metformin BID * A1c: 12.9% ASSESSMENT: * Patient presenting with DKA/HHS initiated on an insulin infusion. Per discussion with customer operations specialist, we did attempt to transition off the infusion as AG is closed, however infusion rates continue to increase 3 hours after initial lantus dose and dextrose fluid discontinuation. This could be due to high insulin resistance. Of note, most recent CO2 is 19. Will provide a second lantus dose now and continue the insulin infusion until 2 blood sugars < 180 mg/dL and rate decreases. Patient is NPO so am hesitant to give any more long acting basal insulin today after second lantus dose. PLAN FOR INPATIENT GLYCEMIC CONTROL: * Hold outpatient oral diabetes medications * Continue Insulin infusion (august d/c when BSG < 180 X 2 checks 1 hour apart and when rate 1 units/hr or below) * Goal range: 140-180 mg/dL * Basal insulin * Lantus 35 units SQ X 1 @~1230 * Lantus 30 units SQ X 1 @ 1530 * Bolus insulin * NovoLog per scale ACHS or Q6hrs while NPO per infusion adjustment calculatot PLAN FOR DISCHARGE: * TBD
[2020-10-19] MEDS: SODIUM CHLORIDE 0.45 % 1,000 ML IV SCH (15:37)
[2020-10-19] MEDS: DAPTOmycin 275 MG in SYRINGE 0 ML IV SCH (15:38)
--- NOTE | 2020-10-19 15:41 | Billing Data ---
Date of Service October 19, 2020 Coding Level of Care Code 24990 Subseq Hosp Care Lvl 1
[2020-10-19] MEDS ORDERED: INSULIN ASPART 100 UNITS/ML 3 ML PEN SC SCH (16:30)
[2020-10-19] MEDS: DC IV INSULIN INFUSION 1 EA DEVI SCH (17:56)
[2020-10-19 18:40] LABS: BUN Creatinine Ratio 15.5 (10-20); Calcium 10.7 mg/dl (8.5-10.1); Creatinine Clr Calc Pharmacy 71.5 ml/min; Est GFR (African American) 102.7 ml/min; Est GFR (Non-African American) 88.6 ml/min; Magnesium 1.6 mg/dl (1.8-2.4); Potassium 2.8 mmol/L (3.5-5.1)
[2020-10-19] MEDS ORDERED: POTASSIUM PHOSPHATE 45 MMOL in SODIUM CHLORIDE 0.9% 1000ML 1,000 ML IV ONE (20:00)
[2020-10-19] MEDS: HEPARIN SOD 5,000 UNIT/0.5 ML VIAL SQ SCH (20:35)
[2020-10-19] MEDS ORDERED: INSULIN GLARGINE SOLOSTAR 100 UNITS/ML 3 ML PEN SC SCH (21:00)
[2020-10-19] MEDS: MAGNESIUM SULFATE / D5W 1 GM/100 ML BAG IV SCH ×2 (21:08→23:17)
[2020-10-20] MEDS: INSULIN ASPART 100 UNITS/ML 3 ML PEN SC SCH ×9 (00:12→23:42)
[2020-10-20] MEDS: SODIUM CHLORIDE 0.45 % 1,000 ML IV SCH ×2 (00:26→07:28)
[2020-10-20 00:49] LABS: BUN Creatinine Ratio 17.7 (10-20); Calcium 10.7 mg/dl (8.5-10.1); Creatinine Clr Calc Pharmacy 91.4 ml/min; Est GFR (African American) 122.5 ml/min; Est GFR (Non-African American) 105.7 ml/min; Magnesium 2.6 mg/dl (1.8-2.4); Potassium 3.1 mmol/L (3.5-5.1)
[2020-10-20 00:51] LABS: Phosphorus 1.9 mg/dl (2.5-4.9)
[2020-10-20] MEDS ORDERED: POTASSIUM PHOS 3 MMOL/1 ML INFUSION IV STA ×2 (01:46→09:58)
[2020-10-20] MEDS: POTASSIUM CHLORIDE / WTR 10 MEQ/100 ML PLCT IV SCH ×4 (02:29→11:20)
[2020-10-20] MEDS: METOPROLOL TARTRATE 1 MG/ML VIAL IV PRN (03:18)
[2020-10-20 05:00] LABS: Hematocrit (blood only) 30.7 % (37-47); Hemoglobin 10.8 g/dL (12.0-16.0); Mean Corpuscular Hemoglobin 30.7 pg (25-34); Mean Corpuscular Hgb Conc 35.2 g/dL (32-36); Mean Corpuscular Volume 87.2 fL (80-100); Mean Platelet Volume 8.1 fL (7.4-10.4); Platelet Count 623 K/uL (130-400); RDW Coefficient of Variation 13.9 % (11.5-14.5); RDW Standard Deviation 44.7 fL (36.4-46.3); Red Blood Count 3.52 M/uL (4.2-5.4); White Blood Count 30.37 K/uL (4.8-10.8)
[2020-10-20] MEDS: DC IV INSULIN INFUSION 1 EA DEVI SCH (05:20)
[2020-10-20 05:30] LABS: Basophils # (auto) 0.03 K/uL (0-0.2); Basophils % (auto) 0.1 %; Eosinophils # (auto) 0.01 K/uL (0-0.5); Immature Granulocytes # (auto) 0.51 K/uL (0.00-0.02); Immature Granulocytes % (auto) 1.7 %; Lymphocytes % (auto) 7.6 %; Monocytes % (auto) 7.2 %; Neutrophils # (auto) 25.32 K/uL (1.4-6.5); Neutrophils % (auto) 83.4 %; RBC Morphology Unremarkable
[2020-10-20] MEDS: PIPERACILLIN/TAZOBACTAM 3.375 GM in DEXTROSE 5% 100 ML IV SCH ×3 (06:14→20:43)
[2020-10-20 06:16] LABS: BUN Creatinine Ratio 17.8 (10-20); Calcium 9.7 mg/dl (8.5-10.1); Creatinine Clr Calc Pharmacy 114.1 ml/min; Est GFR (African American) 131.7 ml/min; Est GFR (Non-African American) 113.6 ml/min; Potassium 3.5 mmol/L (3.5-5.1)
[2020-10-20 06:57] LABS: Magnesium 1.9 mg/dl (1.8-2.4); Phosphorus 2.1 mg/dl (2.5-4.9)
[2020-10-20] MEDS ORDERED: MAGNESIUM SULFATE / D5W 1 GM/100 ML BAG IV ONE (07:30)
[2020-10-20] MEDS: CLOPIDOGREL BISULFATE 75 MG TAB PO SCH (08:13)
[2020-10-20] MEDS: ASPIRIN 81 MG ECTAB PO SCH (08:16)
[2020-10-20] MEDS: ATORVASTATIN 40 MG TAB PO SCH (08:17)
[2020-10-20] MEDS: METOPROLOL SUCC 50MG EXT REL TAB PO SCH (08:17)
[2020-10-20] MEDS: HEPARIN SOD 5,000 UNIT/0.5 ML VIAL SQ SCH ×2 (08:17→21:00)
[2020-10-20] MEDS: lisinopril 20 MG TAB PO SCH (08:18)
[2020-10-20] MEDS ORDERED: Nursing to Pharmacy Communication SCH (09:15)
[2020-10-20] MEDS ORDERED: POTASSIUM CHLORIDE / WTR 10 MEQ/100 ML PLCT IV STA (09:58)
[2020-10-20] MEDS: D5W AND 1/2NSS 1,000 ML IV SCH (10:08)
[2020-10-20] MEDS ORDERED: POTASSIUM PHOSPHATE 15 MMOL in SODIUM CHLORIDE 0.9% 250 ML IV ONE (10:30)
[2020-10-20] MEDS ORDERED: INSULIN GLARGINE SOLOSTAR 100 UNITS/ML 3 ML PEN SC ONE ×2 (11:00→21:00)
--- NOTE | 2020-10-20 11:03 | Pharmacy Report ---
Pharmacy Glycemic Short Note 2 - Date of Service October 20, 2020 - Glycemic Short BSG Results (Last 24 hours): 10/19/20 10/19/20 10/19/20 11:05 11:58 12:57 Glucose POC Glucose 216 H 236 H 215 H 10/19/20 10/19/20 10/19/20 14:01 14:08 15:01 Glucose 215 H POC Glucose 188 H 210 H 10/19/20 10/19/20 10/19/20 16:03 17:00 17:52 Glucose POC Glucose 185 H 163 H 136 H 10/19/20 10/19/20 10/19/20 18:05 20:08 21:55 Glucose 157 H POC Glucose 158 H 194 H 10/19/20 10/20/20 10/20/20 23:59 00:01 02:11 Glucose 243 H POC Glucose 219 H 187 H 10/20/20 10/20/20 10/20/20 04:06 04:50 06:05 Glucose 185 H POC Glucose 187 H 178 H 10/20/20 08:21 Glucose POC Glucose 160 H OUTPATIENT ANTIDIABETIC REGIMEN: * novolog achs * Lantus 50 units BID * Metformin BID * A1c: 12.9% ASSESSMENT: 10/20/20 * Insulin drip successfully transitioned off yesterday and Novolog initiated at weight-based severe stress *q2h* * BSG's have gradually trended down, now 160 mg/dL this AM. However, D5 1/2NS @ 40 mL/hr initiated (until patient is eating, per ICU rounds) * Will continue Lantus, but split BID and have evening dose be dependent on BSG. Significant insulin resistance from DKA may be dissipating therefore will reduce total daily dose from yesterday (which was 1 unit/kg) * Will lenthen Novolog interval to q4h but tighten CHO ratio 10/19/20 * Patient presenting with DKA/HHS initiated on an insulin infusion. Per discussion with telephone advice nurse, we did attempt to transition off the infusion as AG is closed, however infusion rates continue to increase 3 hours after initial lantus dose and dextrose fluid discontinuation. This could be due to high insulin resistance. Of note, most recent CO2 is 19. Will provide a second lantus dose now and continue the insulin infusion until 2 blood sugars < 180 mg/dL and rate decreases. Patient is NPO so am hesitant to give any more long acting basal insulin today after second lantus dose. PLAN FOR INPATIENT GLYCEMIC CONTROL: * Hold outpatient oral diabetes medications * Basal insulin * Lantus 30 units SC x1 now. Additional 0-20 units tonight based on BSG * Bolus insulin * NovoLog q4h * Goal range 110-140 mg/dL * Correction factor: 20 mg/dL/unit * Carb ratio: 8 g CHO/unit PLAN FOR DISCHARGE: * TBD
[2020-10-20] MEDS ORDERED: INSULIN ASPART 100 UNITS/ML 3 ML PEN SC SCH (12:00)
--- NOTE | 2020-10-20 12:45 | Orthopedic Progress Note ---
Date of Service October 20, 2020 Assessment & Plan (1) Cellulitis: (2) Decubitus ulcer of left heel: Decubitus ulceration over the Achilles with an acute infection and surrounding cellulitis and acutely ill but recovering nonambulatory patient. - Recommend continued antibiotic therapy to reduce edema throughout the posterior skin flap. - Continue wound care with local bedside debridement. - Definitive management may remain to be transtibial amputation; however, this should be not done urgently. The soft tissues around the ulceration should be decompressed from infection was for adequate healing of an amputation and to limit surgical burden. - In addition, the patient's mental status is improving. Is unclear if she understands the potential for amputation. Was beneficial to have the patient's at the bedside today for discussion with that regard. He tentatively gives approval for "what ever needs to be done" - Continue medical management. May require further antibiotic therapy through the weekend for adequate preparation prior to amputation. Remains possible that local debridement and wound care will stabilize the wound enough for definitive management. Certainly if she becomes acutely ill, we will push the amputation. - Will continue to follow Subjective Clinical improvement reported by nursing. was at the bedside today for discussion regarding further care. Patient cannot verbalize any particular complaints. She did at one time say "I understand" with regard to discussion about potential surgical intervention for amputation. Review of Systems All systems reviewed & are unremarkable except as noted in HPI & below. Physical Exam General: She is much more alert. Unable to determine if she is oriented to person or place. No acute distress less agitated at the left lower extremity. LLE: On inspection, the heel is well perfused. The Achilles wound was dressed with silver alginate. This was peeled back to reveal not much progress with regard to debridement. There remains necrotic tissue overlying what appears to be the Achilles tendon. She has much less edema in the calf but still remains with some tenderness. There is no crepitus in the proximal leg. Results & Data Results & Data Laboratory Results . Diagnostic Findings Laboratory Tests 10/18/20 10/19/20 10/19/20 14:25 05:43 18:05 WBC 47.94 H* 44.71 H* VBG pH 7.37 10/20/20 04:44 WBC 30.37 H* D VBG pH PG Care Time/CCT Total # of Minutes Spent Total Time Spent with Patient: Total time spent is greater than 50% in coordination of care (as documented) at patient's floor/unit and/or counseling patient: Coding Level of Care Code 75381 Subseq Hosp Care Lvl 3 Diagnoses Cellulitis L03.90 Decubitus ulcer of left heel L89.629
--- NOTE | 2020-10-20 13:00 | Medical Student Progress Note ---
Date of Service October 20, 2020 Assessment & Plan (1) DKA (diabetic ketoacidosis): 50yo F with PMHx of HTN, HLD, IDDM, PVD, and CVA, admitted for management of DKA and sepsis secondary to foot ulcer with osteomyelitis. DKA (diabetic ketoacidosis)- RESOLVED: - DKA protocol transitioned to SQ insulin sliding scale 10/20 Sepsis: - On admission WBC 49.7, lactate 2.9, pro-stefano 0.79 - Likely secondary to heel ulcer and/or cellulitis over her back. - Placed on Zosyn and daptomycin. - Blood cultures pending- no growth after 24 hours Heal ulcer with osteomyelitis: - CT showed soft tissue ulcer of the dorsal hindfoot with subcutaneous emphysema and cellulitis changes, as well as cortical irregularity with associated lucencies of the dorsal aspect of the posterior calcaneus compatible with osteomyelitis. - Zosyn and daptomycin as above - Ortho consulted -no indication for urgent surgical debridement, but will likely require amputation once medically stabilized - Consulted wound care - Wound culture found providencia rettgeri resistant to amp/sul only Hypokalemia: - Repleting- repeat BMP - Improved to 3.5 10/20 PVD (peripheral vascular disease): - LE duplex: atherosclerotic disease LLE, long segment of complete thrombosis within the proximal to mid portions of the left superficial femoral artery. Anterior tibial artery is obscured versus occluded. - Vascular consulted- no indication for surgical intervention at this time IDDM - A1C 12.9 on 10/19 - Insulin SQ sliding scale Stroke: - Hx significant chronic R MCA stroke - Continue home statin, aspirin, clopidogrel HTN/HLD - continue home lisinopril, metoprolol, and statin Varicella zoster (back): - valacyclovir QID for 7 days Code: DNR/DNI Diet: Carb consistent, pureed Dispo: ICU DVT prophylaxis: Heparin 5,000u SQ Q12 Diabetes mellitus complication detail: without coma Diabetes mellitus type: other specified (including SALO) Qualified Code(s): E13.10 - Other specified diabetes mellitus with ketoacidosis without coma Admission and Anticipated Discharge Date Admission Date: October 18, 2020 Supervising Attestation I personally examined the patient and verified all polanco points of history and exam, discussed case, and agree with decision making with Yessenia Serrano MS4. more alert vitals noted nad breathing unlabored no accessory muscles no pallor or icterus sepsis related to stage 3 pressure ulcer of heel and subsequent osteomyelitis, in the setting of uncontrolled DM and followed by subsequent DKA - continue current care appreciate franchise field consultant input otherwise as above Subjective Looking better today. More alert and able to engage in limited communication (phrases). Denies any acute pain. Review of Systems Review of Systems: Limited by ability of patient to communicate, but unremarkable Physical Exam Physical Exam: GENERAL: nad, alert, able to respond to commands HEENT: atraumatic, non-icteric, external nose and pinna are normal CHEST: no wheezes, rhonchi or rales, normal respiratory effort CARDIOVASCULAR: heart regular rate and rhythm, no murmurs, gallops or rubs, no lower extremity edema ABD: nontender to palpation, nondistended, normal active bowel sounds SKIN: Left foot ulcer bandaged, no other rashes or suspicious lesions noted NEURO: verbal but limited language, responds to commands, alert and sitting up in bed, chronic left sided hemplegia from old MCA stroke : pierre catheter in place Results & Data ([facility]) Vital Signs (Past 12 Hours) Vital Signs Temp Pulse Resp BP Pulse Ox 10/20/20 10:23 37.2 C 74 18 165/75 H 98 10/20/20 09:25 37.3 C 82 17 159/70 H 99 10/20/20 08:23 37.2 C 95 H 18 158/100 H 100 10/20/20 07:23 37.3 C 95 H 19 129/84 99 10/20/20 06:23 37.3 C 93 H 25 H 161/93 H 99 10/20/20 05:53 37.3 C 95 H 17 175/107 H 99 10/20/20 05:23 37.3 C 93 H 16 179/101 H 98 10/20/20 04:50 37.2 C 94 H 18 159/78 H 99 10/20/20 04:23 37.3 C 92 H 19 99 10/20/20 03:53 37.3 C 89 26 H 176/88 H 99 10/20/20 03:23 37.3 C 100 H 16 181/91 H 100 10/20/20 03:18 100 H 180/94 H 10/20/20 03:10 37.3 C 99 H 20 180/94 H 100 10/20/20 02:54 37.2 C 100 H 20 185/86 H 100 10/20/20 01:53 37.5 C 95 H 19 153/73 H 100 10/20/20 01:23 37.5 C 93 H 19 159/80 H 100 10/20/20 00:53 37.5 C 91 H 22 165/79 H 100
--- NOTE | 2020-10-20 14:33 | Critical Care Progress Note ---
Date of Service October 20, 2020 Assessment & Plan (1) Acute metabolic encephalopathy: Reason Critically Ill: 50-year-old male presents to the ICU with severe DKA and sepsis likely secondary to left heel ulceration. Neuro - Metabolic encephalopathyimproved -Patient back to her baseline mental status. -Likely secondary to DKA and sepsis. Patient does have history of left MCA stroke with left hemiplegia -CT head without acute intracranial process. Chronic left territory MCA infarct redemonstrated -BUN within normal limits, LFTs unremarkable -Monitor, expect to improve with improvement in DKA Cardiac - Currently hemodynamically stable Troponin negative Continuous monitoring on telemetry Respiratory - Saturating well on room air Chest x-ray did not show any acute finding GI - N.p.o. RENAL/LYTES - Monitor BUNs/creatinine Avoid nephrotoxic medication - Foleystrict I's and O's ENDO - DKA S/p insulin drip Has been transitioned to subcu insulin --Hypercalcemia PTH 45.3 There is a component of primary hyper parathyroidism HEME - H&H stable, monitor routine CBCs ID - Sepsis Procalcitonin 0.79. COVID-19 PCR negative most likely source left heel ulcer plus possible cellulitis of back. Follow-up blood cultures and urine culture Wound culture pending of the left heel Orthopedic, wound as well as vascular surgery on board CPK within normal limit does not seem to be necrotizing fasciitis Continue broad-spectrum antibiotics Zosyn and daptomycin Varicella-zoster- Appreciated on the back --Prophylaxis VTE: Heparin GI: None Lines: Peripheral Diet: N.p.o. Plan: In/out: +2.8 L, urine output 2740 Continue with Zosyn and daptomycin. Wound care saw the patient and stated that patient will likely need surgical intervention. Vascular surgery does not think there is any intervention needed from bedside. Ortho has been following the case. We will get swallow eval for the patient For herpes also will start the patient on valacyclovir 3 times daily for 7 days Hypokalemia, hypomagnesemia as well as hypophosphatemia being replaced Patient hemodynamically stable to be downgraded to medical floor Please note the above document was generated using voice recognition software. It may contain grammatical, syntax or spelling errors.Any formal questions or concerns about the content, text or information contained within the body of this dictation should be directly addressed to the provider for clarification. (2) DKA (diabetic ketoacidosis): (3) PVD (peripheral vascular disease): (4) Cellulitis: (5) Diabetic wet gangrene of the foot: Admission and Anticipated Discharge Date Admission Date: October 18, 2020 Subjective Patient seen and examined at bedside. No acute distress, no adverse events overnight. Patient seems to be more alert compared to yesterday. She looks at you but does not answer any questions. Has been afebrile. Review of Systems Review of Systems: Unobtainable due to mental health condition Physical Exam Physical Exam: Constitutional: No acute distress HEENT: EOMI, PERRLA Respiratory system: Decreased air entry bilaterally, no wheeze, no rhonchi, no crackles CVS: S1-S2 positive, no murmurs or gallops Abdomen: Soft, nontender, nondistended, positive bowel sounds x4 Extremities: +2 pulses bilaterally radialis/ dorsalis pedis, left-sided hemiplegia with contracture in the upper and lower extremity, left leg tender to palpation, there is full-thickness ulcer near the Achilles region with small hole, no granulation tissue. No crepitus appreciated Erythematous base with dried vesicles on the back following dermatome likely representing varicella-zoster Neuro: Awake alert Psych: Unable to assess G/U: Positive Aguilar Skin: no rashes, warm and dry Lymphatic: no cervical or axillary lymphadenopathy Results & Data Results & Data ([facility]) Vital Signs (Past 12 Hours) Vital Signs Temp Pulse Resp BP Pulse Ox 10/20/20 10:23 37.2 C 74 18 165/75 H 98 10/20/20 09:25 37.3 C 82 17 159/70 H 99 10/20/20 08:23 37.2 C 95 H 18 158/100 H 100 10/20/20 07:23 37.3 C 95 H 19 129/84 99 10/20/20 06:23 37.3 C 93 H 25 H 161/93 H 99 10/20/20 05:53 37.3 C 95 H 17 175/107 H 99 10/20/20 05:23 37.3 C 93 H 16 179/101 H 98 10/20/20 04:50 37.2 C 94 H 18 159/78 H 99 10/20/20 04:23 37.3 C 92 H 19 99 07/08/21 03:53 37.3 C 89 26 H 176/88 H 99 10/20/20 03:23 37.3 C 100 H 16 181/91 H 100 10/20/20 03:18 100 H 180/94 H 10/20/20 03:10 37.3 C 99 H 20 180/94 H 100 10/20/20 02:54 37.2 C 100 H 20 185/86 H 100 10/20/20 04:44 10/20/20 04:50 Coding Level of Care Code 23287 Subseq Hosp Care Lvl 3 Diagnoses Acute metabolic encephalopathy G93.41 DKA (diabetic ketoacidosis) E13.10 Diabetes mellitus complication detail: without coma Diabetes mellitus type: other specified (including SALO) PVD (peripheral vascular disease) I73.9 Cellulitis L03.90 Diabetic wet gangrene of the foot E11.52 (1) DKA (diabetic ketoacidosis) Diabetes mellitus complication detail: without coma Diabetes mellitus type: other specified (including SALO) Qualified Code(s): E13.10 - Other specified diabetes mellitus with ketoacidosis without coma
[2020-10-20] MEDS: valACYclovir HCL 500 MG TABLET PO SCH ×3 (15:04→20:42)
[2020-10-20] MEDS: DAPTOmycin 275 MG in SYRINGE 0 ML IV SCH (15:38)
--- NOTE | 2020-10-20 17:40 | Billing Data ---
Date of Service October 20, 2020 Coding Level of Care Code 07362 Subseq Hosp Care Lvl 1
[2020-10-21] MEDS: MoRPHine SULFATE 2 MG/ML CARP IV PRN ×3 (02:28→19:11)
[2020-10-21] MEDS: INSULIN ASPART 100 UNITS/ML 3 ML PEN SC SCH ×5 (03:57→20:36)
[2020-10-21 04:55] LABS: Basophils # (auto) 0.02 K/uL (0-0.2); Basophils % (auto) 0.1 %; Eosinophils # (auto) 0.04 K/uL (0-0.5); Eosinophils % (auto) 0.2 %; Hematocrit (blood only) 28.8 % (37-47); Immature Granulocytes % (auto) 1.3 %; Lymphocytes # (auto) 3.07 K/uL (1.2-3.4); Lymphocytes % (auto) 13.4 %; Mean Corpuscular Hemoglobin 29.6 pg (25-34); Mean Corpuscular Hgb Conc 34.7 g/dL (32-36); Mean Corpuscular Volume 85.2 fL (80-100); Mean Platelet Volume 8.2 fL (7.4-10.4); Monocytes # (auto) 1.56 K/uL (0.11-0.59); Monocytes % (auto) 6.8 %; Neutrophils # (auto) 17.92 K/uL (1.4-6.5); Neutrophils % (auto) 78.2 %; Platelet Count 500 K/uL (130-400); RDW Coefficient of Variation 13.5 % (11.5-14.5); RDW Standard Deviation 42.2 fL (36.4-46.3); Red Blood Count 3.38 M/uL (4.2-5.4); White Blood Count 22.91 K/uL (4.8-10.8)
[2020-10-21] MEDS: PIPERACILLIN/TAZOBACTAM 3.375 GM in DEXTROSE 5% 100 ML IV SCH ×2 (05:38→14:09)
[2020-10-21 05:46] LABS: BUN Creatinine Ratio 19.3 (10-20); Blood Urea Nitrogen 6 mg/dl (7-18); Calcium 9.4 mg/dl (8.5-10.1); Carbon Dioxide 28 mmol/L (21-32); Chloride 106 mmol/L (98-107); Creatinine Clr Calc Pharmacy 186.4 ml/min; Est GFR (African American) > 150.0 ml/min; Est GFR (Non-African American) 133.5 ml/min; Glucose 136 mg/dl (70-99); Magnesium 1.7 mg/dl (1.8-2.4); Phosphorus 1.2 mg/dl (2.5-4.9); Potassium 2.5 mmol/L (3.5-5.1); Sodium 138 mmol/L (136-145)
[2020-10-21] MEDS ORDERED: POTASSIUM PHOS 3 MMOL/1 ML INFUSION IV STA (06:18)
[2020-10-21] MEDS ORDERED: POTASSIUM PHOSPHATE 24 MMOL in SODIUM CHLORIDE 0.9% 500 ML IV STA (06:25)
[2020-10-21] MEDS ORDERED: MAGNESIUM SULFATE / D5W 1 GM/100 ML BAG IV ONE (06:30)
[2020-10-21] MEDS: POTASSIUM CHLORIDE / WTR 10 MEQ/100 ML PLCT IV SCH ×6 (06:36→17:45)
[2020-10-21] MEDS: valACYclovir HCL 500 MG TABLET PO SCH ×3 (08:03→20:41)
[2020-10-21] MEDS: lisinopril 20 MG TAB PO SCH (08:03)
[2020-10-21] MEDS: METOPROLOL SUCC 50MG EXT REL TAB PO SCH (08:05)
[2020-10-21] MEDS: ATORVASTATIN 40 MG TAB PO SCH (08:06)
[2020-10-21] MEDS: HEPARIN SOD 5,000 UNIT/0.5 ML VIAL SQ SCH ×2 (08:06→21:03)
[2020-10-21] MEDS: CLOPIDOGREL BISULFATE 75 MG TAB PO SCH (08:06)
[2020-10-21] MEDS: ASPIRIN 81 MG ECTAB PO SCH (08:06)
--- NOTE | 2020-10-21 08:33 | Hospitalist Progress Note ---
Date of Service October 21, 2020 Assessment & Plan (1) Diabetic wet gangrene of the foot: 50yo F with PMHx of HTN, HLD, IDDM, PVD, and CVA, admitted for management of DKA and sepsis secondary to foot ulcer with osteomyelitis. DKA (diabetic ketoacidosis)- RESOLVED: - DKA protocol transitioned to SQ insulin sliding scale 10/20 Sepsis: - On admission WBC 49.7, lactate 2.9, pro-stefano 0.79 - Likely secondary to heel ulcer and/or cellulitis over her back. - Placed on Zosyn and daptomycin --> ceftriaxone - Blood cultures no growth after 48 hours Heal ulcer with osteomyelitis: - CT showed soft tissue ulcer of the dorsal hindfoot with subcutaneous emphysema and cellulitis changes, as well as cortical irregularity with associated lucencies of the dorsal aspect of the posterior calcaneus compatible with osteomyelitis. - Zosyn and daptomycin as above - Ortho consulted -no indication for urgent surgical debridement, but will likely require amputation once medically stabilized - Consulted wound care - Wound culture found providencia rettgeri resistant to amp/sul only Hypokalemia/ hypophosphatemia/ hypomagnesemia: - Repleting- repeat BMP this afternoon - K 2.5, phos 1.2, mag 1.7 PVD (peripheral vascular disease): - LE duplex: atherosclerotic disease LLE, long segment of complete thrombosis within the proximal to mid portions of the left superficial femoral artery. Anterior tibial artery is obscured versus occluded. - Vascular consulted- no indication for surgical intervention at this time IDDM - A1C 12.9 on 10/19 - Insulin SQ sliding scale Stroke: - Hx significant chronic R MCA stroke - Continue home statin, aspirin, clopidogrel HTN/HLD - continue home lisinopril, metoprolol, and statin Varicella zoster (back): - valacyclovir QID for 7 days (day 2) Code: DNR/DNI Diet: Carb consistent, pureed Dispo: ICU DVT prophylaxis: Heparin 5,000u SQ Q12 (2) Decubitus ulcer of left heel: (3) Cellulitis: (4) Acute metabolic encephalopathy: (5) PVD (peripheral vascular disease): (6) DKA (diabetic ketoacidosis): (7) Sepsis: Admission and Anticipated Discharge Date Admission Date: October 18, 2020 Supervising Physician Co-Signing Physician Notes I personally examined the patient and verified all polanco points of history and exam, discussed case, and agree with decision making with Dr Chavez was conversive in simple terms w nursing - more fatigued when i see her but does nod and loosely indicate she will try to eat. vitals noted nad breathing unlabored no accessory muscles no pallor or icterus. calf with tenderness and faint crepitis, but no tracking erythema. no tenderness/erythema/crepitis above the knee. heel dressed sepsis related to stage 3 pressure ulcer of heel and subsequent osteomyelitis, in the setting of uncontrolled DM and followed by subsequent DKA - ongoing IV abx, surgical assistance, supportive care, insulin management otherwise as above Subjective looking more alert. Sitting up in bed. Communication limited but patient denies any abdominal pain or foot pain. No other complaints. Review of Systems Review of Systems: Unobtainable due to cognitive status Physical Exam Physical Exam: GENERAL: nad, alert, able to respond to commands HEENT: atraumatic, non-icteric, external nose and pinna are normal CHEST: no wheezes, rhonchi or rales, normal respiratory effort CARDIOVASCULAR: heart regular rate and rhythm, no murmurs, gallops or rubs, no lower extremity edema ABD: nontender to palpation, nondistended, normal active bowel sounds SKIN: Left foot ulcer bandaged, no other rashes or suspicious lesions noted NEURO: verbal but limited language, responds to commands, alert and sitting up in bed, chronic left sided hemplegia from old MCA stroke : pierre catheter in place Results & Data Results & Data ([facility]) Vital Signs (Past 12 Hours) Vital Signs Temp Pulse Resp BP Pulse Ox 10/21/20 05:53 37.6 C H 88 14 175/82 H 98 10/21/20 04:53 37.7 C H 84 23 166/82 H 95 10/21/20 03:53 37.8 C H 87 26 H 151/86 H 96 10/21/20 02:53 37.9 C H 86 19 151/76 H 98 10/21/20 01:53 38.0 C H 90 20 147/84 H 97 10/21/20 00:00 37.9 C H 88 20 98 10/20/20 23:56 37.9 C H 92 H 17 99 10/20/20 22:54 37.9 C H 90 24 186/84 H 98 10/20/20 21:54 37.8 C H 88 19 152/95 H 99 10/20/20 20:53 37.7 C H 89 23 179/88 H 99 (1) DKA (diabetic ketoacidosis) Diabetes mellitus complication detail: without coma Diabetes mellitus type: other specified (including SALO) Qualified Code(s): E13.10 - Other specified diabetes mellitus with ketoacidosis without coma (2) Sepsis Sepsis acute organ dysfunction status: with acute organ dysfunction Sepsis type: sepsis due to unspecified organism Severe sepsis acute organ dysfunction type: encephalopathy Severe sepsis shock status: without septic shock Qualified Code(s): A41.9 - Sepsis, unspecified organism; R65.20 - Severe sepsis without septic shock; G93.40 - Encephalopathy, unspecified
[2020-10-21] MEDS ORDERED: INSULIN GLARGINE SOLOSTAR 100 UNITS/ML 3 ML PEN SC SCH ×2 (09:00→21:00)
--- NOTE | 2020-10-21 13:11 | Billing Data ---
Date of Service October 21, 2020 Coding Level of Care Code 95537 Subseq Hosp Care Lvl 3
--- NOTE | 2020-10-21 14:18 | Medical Student Progress Note ---
Date of Service October 21, 2020 Assessment & Plan (1) DKA (diabetic ketoacidosis): 50yo F with PMHx of HTN, HLD, IDDM, PVD, and CVA, admitted for management of DKA and sepsis secondary to foot ulcer with osteomyelitis. DKA (diabetic ketoacidosis)- RESOLVED: - DKA protocol transitioned to SQ insulin sliding scale 10/20 Sepsis: - On admission WBC 49.7, lactate 2.9, pro-stefano 0.79 - Likely secondary to heel ulcer and/or cellulitis over her back. - Placed on Zosyn and daptomycin. - Blood cultures no growth after 48 hours Heal ulcer with osteomyelitis: - CT showed soft tissue ulcer of the dorsal hindfoot with subcutaneous emphysema and cellulitis changes, as well as cortical irregularity with associated lucencies of the dorsal aspect of the posterior calcaneus compatible with osteomyelitis. - Zosyn and daptomycin as above - Ortho consulted -no indication for urgent surgical debridement, but will likely require amputation once medically stabilized - Consulted wound care - Wound culture found providencia rettgeri resistant to amp/sul only Hypokalemia/ hypophosphatemia/ hypomagnesemia: - Repleting- repeat BMP this afternoon - K 2.5, phos 1.2, mag 1.7 PVD (peripheral vascular disease): - LE duplex: atherosclerotic disease LLE, long segment of complete thrombosis within the proximal to mid portions of the left superficial femoral artery. Anterior tibial artery is obscured versus occluded. - Vascular consulted- no indication for surgical intervention at this time IDDM - A1C 12.9 on 10/19 - Insulin SQ sliding scale Stroke: - Hx significant chronic R MCA stroke - Continue home statin, aspirin, clopidogrel HTN/HLD - continue home lisinopril, metoprolol, and statin Varicella zoster (back): - valacyclovir QID for 7 days (day 2) Code: DNR/DNI Diet: Carb consistent, pureed Dispo: ICU DVT prophylaxis: Heparin 5,000u SQ Q12 Diabetes mellitus complication detail: without coma Diabetes mellitus type: other specified (including SALO) Qualified Code(s): E13.10 - Other specified diabetes mellitus with ketoacidosis without coma Admission and Anticipated Discharge Date Admission Date: October 18, 2020 Subjective Looking more alert. Sitting up in bed. Communication limited but patient denies any abdominal pain or foot pain. No other complaints. Review of Systems Review of Systems: Limited by ability of patient to communicate, but unremarkable Physical Exam Physical Exam: GENERAL: nad, alert, able to respond to commands HEENT: atraumatic, non-icteric, external nose and pinna are normal CHEST: no wheezes, rhonchi or rales, normal respiratory effort CARDIOVASCULAR: heart regular rate and rhythm, no murmurs, gallops or rubs, no lower extremity edema ABD: nontender to palpation, nondistended, normal active bowel sounds SKIN: Left foot ulcer bandaged, no other rashes or suspicious lesions noted NEURO: verbal but limited language, responds to commands, alert and sitting up in bed, chronic left sided hemplegia from old MCA stroke : pierre catheter in place Results & Data ([facility]) Vital Signs (Past 12 Hours) Vital Signs Temp Pulse Resp BP Pulse Ox 10/21/20 07:53 37.4 C 83 19 170/84 H 97 10/21/20 05:53 37.6 C H 88 14 175/82 H 98 10/21/20 04:53 37.7 C H 84 23 166/82 H 95 10/21/20 03:53 37.8 C H 87 26 H 151/86 H 96 10/21/20 02:53 37.9 C H 86 19 151/76 H 98
--- NOTE | 2020-10-21 14:47 | Pharmacy Report ---
Pharmacy Glycemic Short Note 2 - Date of Service October 21, 2020 - Glycemic Short BSG Results (Last 24 hours): 10/20/20 10/20/20 10/20/20 16:21 20:36 23:39 Glucose POC Glucose 214 H 211 H 179 H 10/21/20 10/21/20 10/21/20 03:52 04:13 08:01 Glucose 136 H POC Glucose 143 H 135 H 10/21/20 11:33 Glucose POC Glucose 215 H OUTPATIENT ANTIDIABETIC REGIMEN: * novolog achs * Lantus 50 units BID * Metformin BID * A1c: 12.9% ASSESSMENT: 10/21/20: * BSGs fairly well controlled today. Fasting bSG much improved today after 50 units of basal insulin today. Patient received 30 units this morning. Will continue with scale for this evening, but if fasting remains stable tomorrow will consider initiating lantus 25 units BID. * Patient is ordered a diet, ate breakfast but no carbs at lunch. Lunch BSG mildly elevated however dextrose infusion was still running until late morning. Will monitor trend, but may consider tightening CR. 10/20/20 * Insulin drip successfully transitioned off yesterday and Novolog initiated at weight-based severe stress *q2h* * BSG's have gradually trended down, now 160 mg/dL this AM. However, D5 1/2NS @ 40 mL/hr initiated (until patient is eating, per ICU rounds) * Will continue Lantus, but split BID and have evening dose be dependent on BSG. Significant insulin resistance from DKA may be dissipating therefore will reduce total daily dose from yesterday (which was 1 unit/kg) * Will lenthen Novolog interval to q4h but tighten CHO ratio 10/19/20 * Patient presenting with DKA/HHS initiated on an insulin infusion. Per discussion with dance critic, we did attempt to transition off the infusion as AG is closed, however infusion rates continue to increase 3 hours after initial lantus dose and dextrose fluid discontinuation. This could be due to high insulin resistance. Of note, most recent CO2 is 19. Will provide a second lantus dose now and continue the insulin infusion until 2 blood sugars < 180 mg/dL and rate decreases. Patient is NPO so am hesitant to give any more long acting basal insulin today after second lantus dose. PLAN FOR INPATIENT GLYCEMIC CONTROL: * Hold outpatient oral diabetes medications * Basal insulin * Lantus 30 units SC this morning. Additional 15,20 or 30 units tonight based on BSG * Bolus insulin * NovoLog q4h * Goal range 110-140 mg/dL * Correction factor: 20 mg/dL/unit * Carb ratio: 8 g CHO/unit PLAN FOR DISCHARGE: * TBD
[2020-10-21 15:08] LABS: BUN Creatinine Ratio 21.1 (10-20); Calcium 9.2 mg/dl (8.5-10.1); Creatinine Clr Calc Pharmacy 171.6 ml/min; Est GFR (Non-African American) 129.4 ml/min; Potassium 4.4 mmol/L (3.5-5.1)
--- NOTE | 2020-10-21 15:08 | Orthopedic Progress Note ---
Date of Service October 21, 2020 Assessment & Plan (1) Decubitus ulcer of left heel: (2) Cellulitis: -No surgical intervention planned until possibly early next week. -Needs attempts at superficial debridement and ongoing wound care; I changed the dressing today after expressing the drainage from the wound. Drainaged cleaned w 4x4 gauze. Re-dressed with silver alginate dressing, ABD pads x 2 and kerlix. -Continue antibiotics, changed to Ceftriaxone after culture results -Unsure that pt has capacity to make decision herself regarding surgery given that she is back to her mental baseline and only able to answer simple questions -Will continue to follow Subjective . Continues to clinically improve. Transferred to Med/Surg today. At her baseline mental status per chart review and nursing. More interactive than yesterday but not purposefully answering questions. Review of Systems All systems reviewed & are unremarkable except as noted in HPI & below. Physical Exam . General: Chronically ill appearing middle aged female resting in bed in no acute distress. Answers simple questions. LLE: The heel is well perfused. The Achilles wound was dressed with silver alginate. This was peeled back to reveal not much progress with regard to debridement. Today there is more brown/holden foul smelling purulent drainage from the wound. There remains necrotic tissue overlying what appears to be the Achilles tendon. felt tipping machine tender in left calf but remains soft. There is no crepitus in the proximal leg. Results & Data Results & Data Laboratory Results .Reviewed Diagnostic Findings . Reviewed PG Care Time/CCT Total # of Minutes Spent Total Time Spent with Patient: Total time spent is greater than 50% in coordination of care (as documented) at patient's floor/unit and/or counseling patient: Coding Level of Care Code 40825 Subseq Hosp Care Lvl 1 Diagnoses Decubitus ulcer of left heel L89.629 Cellulitis L03.90
[2020-10-21] MEDS: D5W AND 1/2NSS 1,000 ML IV SCH (16:55)
[2020-10-21] MEDS: cefTRIAXone SODIUM 2,000 MG in DEXTROSE 5% 50 ML IV SCH (21:02)
[2020-10-22] MEDS: INSULIN ASPART 100 UNITS/ML 3 ML PEN SC SCH ×6 (00:02→20:08)
[2020-10-22] MEDS: MoRPHine SULFATE 2 MG/ML CARP IV PRN ×2 (05:52→21:34)
[2020-10-22 08:24] LABS: Basophils # (auto) 0.02 K/uL (0-0.2); Basophils % (auto) 0.1 %; Eosinophils # (auto) 0.15 K/uL (0-0.5); Eosinophils % (auto) 0.7 %; Hematocrit (blood only) 29.5 % (37-47); Hemoglobin 9.9 g/dL (12.0-16.0); Immature Granulocytes # (auto) 0.22 K/uL (0.00-0.02); Lymphocytes # (auto) 4.08 K/uL (1.2-3.4); Lymphocytes % (auto) 18.3 %; Mean Corpuscular Hemoglobin 29.8 pg (25-34); Mean Corpuscular Hgb Conc 33.6 g/dL (32-36); Mean Corpuscular Volume 88.9 fL (80-100); Mean Platelet Volume 8.1 fL (7.4-10.4); Monocytes # (auto) 1.98 K/uL (0.11-0.59); Monocytes % (auto) 8.9 %; Neutrophils # (auto) 15.81 K/uL (1.4-6.5); Nucleated RBC # (auto) 0.03 K/uL (0-0); Nucleated RBC % (auto) 0.1 %; Platelet Count 457 K/uL (130-400); RDW Coefficient of Variation 13.8 % (11.5-14.5); RDW Standard Deviation 45.3 fL (36.4-46.3); Red Blood Count 3.32 M/uL (4.2-5.4); White Blood Count 22.26 K/uL (4.8-10.8)
--- NOTE | 2020-10-22 08:29 | Hospitalist Progress Note ---
Date of Service October 22, 2020 Assessment & Plan (1) Diabetic wet gangrene of the foot: 50yo F with PMHx of HTN, HLD, IDDM, PVD, and CVA, admitted for management of DKA and sepsis secondary to foot ulcer with osteomyelitis. Heel ulcer with osteomyelitis: - CT showing soft tissue ulcer of the dorsal hindfoot with subcutaneous emphysema and cellulitis changes, as well as cortical irregularity with associated lucencies of the dorsal aspect of the posterior calcaneus compatible with osteomyelitis. - ceftriaxone per sensitivities of wound culture growing providencia rettgeri, treatment since 10/18 - Ortho consulted: no indication for urgent surgical debridement, but will likely require amputation once medically stabilized - Consulted wound care Sepsis 2/2 heel ulcer and osteo - On admission WBC 49.7, lactate 2.9, pro-stefano 0.79 - Placed on Zosyn and daptomycin --> ceftriaxone as above - Blood cultures no growth after 48 hours metabolic derangements: resolved PVD (peripheral vascular disease): - LE duplex: atherosclerotic disease LLE, long segment of complete thrombosis within the proximal to mid portions of the left superficial femoral artery. Anterior tibial artery is obscured versus occluded. - Vascular consulted- no indication for surgical intervention at this time IDDM - A1C 12.9 on 10/19 - Insulin SQ sliding scale Stroke: - Hx significant chronic R MCA stroke - Continue home statin, aspirin, clopidogrel HTN/HLD - continue home lisinopril, metoprolol, and statin Varicella zoster (back): - valacyclovir QID for 7 days (10/20 - 10/27) Code: DNR/DNI Diet: Carb consistent, pureed Dispo: Med/Tele DVT prophylaxis: Heparin 5,000u SQ Q12 (2) Decubitus ulcer of left heel: (3) Cellulitis: (4) Acute metabolic encephalopathy: (5) PVD (peripheral vascular disease): (6) DKA (diabetic ketoacidosis): (7) Sepsis: Admission and Anticipated Discharge Date Admission Date: October 18, 2020 Supervising Physician Co-Signing Physician Notes I personally saw and examined the patient. I verified all polanco points and agree with resident physician Dr Elizabeth Chavez with the following exceptions and/or additions: Alert but disorientated x3, unable to give me any history O/E HS RRR, no murmurs, Chest CTAB, non septic appearing, Left foot dressing not removed Left heel ulcer - continue on antibiotics pending surgical intervention next week Subjective minimally expressive this AM. able to share that she is not in any pain, is not worried about anything. difficult for her to remember what year it is, was able to say it is "[place]". oriented to place ([facility] minimally expressive this AM. able to share that she is not in any pain, is not worried about anything. difficult for her to remember what year it is, was able to say it is "[place]". oriented to place ([facility]). Review of Systems Review of Systems: Limited due to cognitive status Physical Exam Physical Exam: GENERAL: tired appearing, HEENT: atraumatic, non-icteric, CHEST: no wheezes, rhonchi or rales, normal respiratory effort CARDIOVASCULAR: heart regular rate and rhythm, no murmurs, gallops or rubs, no lower extremity edema ABD: nontender to palpation, nondistended, normal active bowel sounds SKIN: Left foot ulcer bandaged, no other rashes or suspicious lesions noted NEURO: verbal but limited language, responds to commands, drowsy and laying in bed, chronic left sided hemiplegia from old MCA stroke : pierre catheter in place Results & Data Results & Data ([facility]) Vital Signs (Past 12 Hours) Vital Signs Temp Pulse Pulse Resp BP Pulse Ox 10/22/20 07:53 36.7 C 72 18 143/76 H 96 10/22/20 07:24 67 10/22/20 03:59 37.0 C 88 18 155/81 H 98 10/22/20 02:15 79 10/21/20 22:31 36.7 C 90 18 134/81 100 Laboratory Results WBC 22.26 K/uL (4.8-10.8) H 10/22/20 08:00 RBC 3.32 M/uL (4.2-5.4) L 10/22/20 08:00 Hgb 9.9 g/dL (12.0-16.0) L 10/22/20 08:00 POC Hgb 14.3 g/dl (12.0-16.0) 10/18/20 14:30 Hct 29.5 % (37-47) L 10/22/20 08:00 POC Hct 42 % (37-47) 10/18/20 14:30 MCV 88.9 fL (80-100) 10/22/20 08:00 MCH 29.8 pg (25-34) 10/22/20 08:00 MCHC 33.6 g/dL (32-36) 10/22/20 08:00 RDW Std Deviation 45.3 fL (36.4-46.3) 10/22/20 08:00 RDW Coeff of Travis 13.8 % (11.5-14.5) 10/22/20 08:00 Plt Count 457 K/uL (130-400) H 10/22/20 08:00 MPV 8.1 fL (7.4-10.4) 10/22/20 08:00 Immature Gran % (Auto) 1.0 % 10/22/20 08:00 Neut % (Auto) 71.0 % 10/22/20 08:00 Lymph % (Auto) 18.3 % 10/22/20 08:00 Early % (Auto) 8.9 % 10/22/20 08:00 Eos % (Auto) 0.7 % 10/22/20 08:00 Baso % (Auto) 0.1 % 10/22/20 08:00 Neut # (Auto) 15.81 K/uL (1.4-6.5) H 10/22/20 08:00 Lymph # (Auto) 4.08 K/uL (1.2-3.4) H 10/22/20 08:00 Early # (Auto) 1.98 K/uL (0.11-0.59) H 10/22/20 08:00 Eos # (Auto) 0.15 K/uL (0-0.5) 10/22/20 08:00 Baso # (Auto) 0.02 K/uL (0-0.2) 10/22/20 08:00 Immature Gran # (Auto) 0.22 K/uL (0.00-0.02) H 10/22/20 08:00 Absolute Nucleated RBC 0.03 K/uL (0-0) H 10/22/20 08:00 Nucleated RBC % (auto) 0.1 % 10/22/20 08:00 Neutrophils % (Manual) 90.5 % 10/19/20 05:43 Lymphocytes % (Manual) 4.3 % 10/19/20 05:43 Monocytes % (Manual) 4.3 % 10/19/20 05:43 Myelocytes % (Man) 0.9 % 10/19/20 05:43 Neutrophils # (Manual) 40.46 K/uL (1.4-6.5) H 10/19/20 05:43 Total Absolute Neuts 40.46 K/uL (1.4-6.5) H 10/19/20 05:43 Lymphocytes # (Manual) 1.92 K/uL (1.2-3.4) 10/19/20 05:43 Total Abs Lymphocytes 1.92 K/uL (1.2-3.4) 10/19/20 05:43 Monocytes # (Manual) 1.92 K/uL (0.11-0.59) H 10/19/20 05:43 Myelocytes # (Manual) 0.40 K/uL (0-0) H 10/19/20 05:43 RBC Morphology Unremarkable 10/20/20 04:44 Echinocytes 1+ 10/19/20 05:43 PT 11.4 Seconds (9.0-12.0) 10/18/20 14:25 INR 1.1 (0.9-1.1) 10/18/20 14:25 APTT < 20.0 Seconds (21.0-31.0) L 10/18/20 14:25 PTT Ratio 0.8 10/18/20 14:25 ABG pH 7.25 (7.35-7.45) L 10/18/20 19:39 ABG pCO2 12 mmHg (35-46) L 10/18/20 19:39 ABG pO2 121 mmHg (80-95) H 10/18/20 19:39 ABG HCO3 5 mmol/L (19-24) L 10/18/20 19:39 ABG O2 Saturation 98.3 % (90-95) H 10/18/20 19:39 ABG Base Excess -19.2 mEq/L (-9-1.8) L 10/18/20 19:39 Shahram Test Pos (Pos) 10/18/20 19:39 VBG pH 7.37 (7.36-7.41) 10/19/20 18:05 VBG pCO2 25 mmHg (38-50) L 10/18/20 15:17 VBG pO2 20 mmHg 10/18/20 15:17 VBG HCO3 9 mmol/L 10/18/20 15:17 VBG O2 Saturation < 60.0 % 10/18/20 15:17 VBG Base Excess -17.6 mEq/L 10/18/20 15:17 Barometric Pressure 731.7 mm/Hg 10/18/20 19:39 Oxygen Given Room Air 10/18/20 19:39 POC Sodium 140 mmol/L (135-144) 10/18/20 14:30 Sodium 138 mmol/L (136-145) 10/22/20 08:00 POC Potassium 2.7 mmol/L (3.3-5.0) L 10/18/20 14:30 Potassium 3.4 mmol/L (3.5-5.1) L D 10/22/20 08:00 POC Chloride 109 mmol/L (101-112) 10/18/20 14:30 Chloride 106 mmol/L (98-107) 10/22/20 08:00 Carbon Dioxide 28 mmol/L (21-32) 10/22/20 08:00 POC Total CO2 8 mmol/L (24-31) L* 10/18/20 14:30 Anion Gap 4.0 (3-11) 10/22/20 08:00 POC Anion Gap 27.0 mmol/L (16-25) H 10/18/20 14:30 POC BUN 30 mg/dl (7-18) H 10/18/20 14:30 BUN 7 mg/dl (7-18) 10/22/20 08:00 Creatinine 0.24 mg/dl (0.6-1.2) L 10/22/20 08:00 POC Creatinine 0.5 mg/dl (0.6-1.3) L 10/18/20 14:30 Est Cr Clr Drug Dosing 240.2 ml/min 10/22/20 08:00 Est GFR ( Amer) > 150.0 ml/min 10/22/20 08:00 Est GFR (Non-Af Amer) 143.7 ml/min 10/22/20 08:00 BUN/Creatinine Ratio 28.6 (10-20) H 10/22/20 08:00 Glucose 65 mg/dl (70-99) L 10/22/20 08:00 POC Glucose 222 mg/dl (70-99) H 10/22/20 11:31 POC Glucose (other) 539 mg/dl (70-99) H* 10/18/20 14:30 Estimat Average Glucose 324 mg/dl 10/19/20 05:43 Hemoglobin A1c 12.9 % (4.5-5.6) H 10/19/20 05:43 Osmolality 345 mOsm/kg (280-300) H 10/18/20 14:25 Lactate 1.8 mmol/L (0.4-2.0) 10/18/20 17:16 Calcium 9.5 mg/dl (8.5-10.1) 10/22/20 08:00 POC Ioniz Calcium Sesar 1.62 mmol/l (1.12-1.32) H* 10/18/20 14:30 Phosphorus 2.7 mg/dl (2.5-4.9) D 10/22/20 08:00 Magnesium 1.9 mg/dl (1.8-2.4) 10/22/20 08:00 Total Bilirubin 0.2 mg/dl (0.2-1) 10/22/20 08:00 Direct Bilirubin < 0.1 mg/dl (0-0.2) 10/18/20 14:25 AST 23 U/L (15-37) 10/22/20 08:00 ALT 21 U/L (12-78) 10/22/20 08:00 Alkaline Phosphatase 193 U/L (45-117) H 10/22/20 08:00 Total Creatine Kinase 112 U/L (26-192) 10/19/20 08:38 Troponin I < 0.015 ng/ml (0-0.045) 10/18/20 14:25 Total Protein 6.2 gm/dl (6.4-8.2) L 10/22/20 08:00 Albumin 1.5 gm/dl (3.4-5.0) L 10/22/20 08:00 Globulin 4.7 gm/dl (2.5-4.0) H 10/22/20 08:00 Albumin/Globulin Ratio 0.3 (0.9-2) L 10/22/20 08:00 Lipase 219 U/L (73-393) 10/18/20 14:25 Beta-Hydroxybutyric Acd 77.96 mg/dl (0.2-2.81) H 10/19/20 01:36 Procalcitonin 0.79 ng/ml (0-0.5) H 10/18/20 14:25 TSH 0.515 uIu/ml (0.300-4.500) 10/18/20 14:25 PTH Intact 45.3 pg/ml (18.4-80.1) 10/19/20 08:38 Specimen Hemolysis 10/21/20 14:25 Urine Color Yellow 10/18/20 15:39 Urine Appearance Clear (Clear) 10/18/20 15:39 Urine pH 5.0 (4.5-7.5) 10/18/20 15:39 Ur Specific [place] 1.026 (1.000-1.030) 10/18/20 15:39 Urine Protein 1+ (Negative) H 10/18/20 15:39 Urine Glucose (UA) 3+ (Negative) H 10/18/20 15:39 Urine Ketones 4+ (Negative) H 10/18/20 15:39 Urine Blood 2+ (Negative) H 10/18/20 15:39 Urine Nitrite Negative (Negative) 10/18/20 15:39 Urine Bilirubin Negative (Negative) 10/18/20 15:39 Urine Urobilinogen Negative (Negative) 10/18/20 15:39 Ur Leukocyte Esterase Negative (Negative) 10/18/20 15:39 Urine WBC (Auto) 10-30 /hpf (0-5) H 10/18/20 15:39 Urine RBC (Auto) 10-30 /hpf (0-4) H 10/18/20 15:39 U Hyaline Cast (Auto) 0 /lpf (0-5) 10/18/20 15:39 U Epithel Cells (Auto) >30 /lpf (0-5) H 10/18/20 15:39 Urine Bacteria (Auto) 1+ (Negative) H 10/18/20 15:39 Urine Yeast Budding (None Prsent) A 10/18/20 15:39 Nasal Screen MRSA (PCR) Negative (Negative) 10/18/20 21:37 COVID-19 Eval Order Covid19 at [facility] 10/18/20 14:43 SARS-CoV-2 (PCR) NEGATIVE (Negative) 10/18/20 14:43 Impressions Chest X-Ray 10/18/20 14:46 SINGLE VIEW CHEST CLINICAL HISTORY: Sepsis. FINDINGS: An AP, portable, upright chest radiograph is compared to study dated 08/28/2019. Correlation is made with chest CT dated 07/24/2007. The examination is degraded by portable technique and patient rotation. The heart is top normal for projection noting atherosclerotic calcification of the thoracic aorta. There are low lung volumes with mild elevation of the right hemidiaphragm and bibasilar atelectasis. No airspace consolidation or large pleural effusion is identified. No pneumothorax is seen. The skeletal structures are osteopenic. The bony thorax is grossly intact. IMPRESSION: No acute cardiopulmonary abnormality. ACT 112: Negative or not required by law. Electronically signed by: Navneet Darden M.D. 10/18/2020 5:13 PM Abdomen/Pelvis CT 10/18/20 14:48 CT SCAN OF THE ABDOMEN AND PELVIS WITH IV CONTRAST CLINICAL HISTORY: Generalized abdominal pain. Sepsis. COMPARISON STUDY: Abdominal CT dated 08/28/2019. TECHNIQUE: Following the IV administration of 94 cc of Optiray 320, CT scan of the abdomen and pelvis is performed from the lung bases to the proximal femora. Images are reviewed in the axial, sagittal, and coronal planes. IV contrast was administered without complication. A dose lowering technique was utilized adhering to the principles of ALARA. The examination is degraded by streak artifact from the arms which could not be elevated above the abdomen. There is also motion artifact. FINDINGS: Lung bases: The heart is normal in size and without pericardial effusion. There are coronary artery calcifications. The lung bases are clear. Liver: The contrast-enhanced liver is normal in size, contour, and attenuation. There is no intrahepatic biliary ductal dilatation. The hepatic veins and portal veins are patent. Gallbladder: Surgically absent noting clips in the gallbladder fossa. Spleen: Normal in size and attenuation. Pancreas: Moderately atrophic and grossly unremarkable. Adrenal glands: Nodular thickening of the adrenal glands is similar to previous. Kidneys: The contrast enhanced kidneys are normal in size and without hydronephrosis. The kidneys enhance symmetrically. Abdominal vasculature: The abdominal aorta is normal in course and caliber noting moderate to advanced atherosclerotic calcification. Bowel: There is no bowel obstruction. There is a small duodenal diverticulum. The appendix is well-visualized and normal. A hyperdense structure is noted within the cecum on image # #[id number]. Peritoneum: There is no intraperitoneal free air or abdominal ascites. Lymphadenopathy: None. Pelvic viscera: The bladder is decompressed around a Pierre catheter and cannot be evaluated. The uterus and adnexa are normal as visualized. Skeletal structures: The skeletal structures are osteopenic. There is mild to moderate lumbosacral spondylosis. No lytic or blastic lesions are seen. IMPRESSION: 1. Streak and motion degraded examination. 2. No acute infectious or inflammatory findings are identified in the abdomen or pelvis. 3. There is no bowel obstruction. 4. Additional findings as above. ACT 112: Negative or not required by law. Electronically signed by: Navneet Darden M.D. 10/18/2020 5:01 PM Ankle X-Ray 10/18/20 14:48 LEFT ANKLE 2 VIEWS CLINICAL HISTORY: Left lower external the ulcer. FINDINGS: Crosstable AP and lateral radiographs of the left ankle are obtained. No prior studies are available for comparison at the time of dictation. The skeletal structures are osteopenic. No fracture is identified. No bony erosion or periostitis is seen. The ankle mortise is intact. There is no joint effusion. There are small dorsal and large plantar calcaneal enthesophytes. A soft tissue ulceration is suggested posterior to the ankle joint with soft tissue edema and foci of subcutaneous gas. Soft tissue gas is seen more proximally into the calf on the AP view. No radiodense foreign body is identified. There is advanced atherosclerotic calcification of the regional arteries. IMPRESSION: 1. No acute bony abnormality is identified. 2. Dorsal ulceration and soft tissue edema as above. Subcutaneous gas indicates soft tissue infection and clinical correlation will be required. 3. Osteopenia and degenerative change as above. Electronically signed by: Navneet Darden M.D. 10/18/2020 5:[address] 10/18/20 14:48 CT head/brain wo con CLINICAL HISTORY: 50 years-old Female with confusion, sepsis, h/o cva. Acutely altered mental status with sepsis TECHNIQUE: Multiple axial CT images of the head were obtained without contrast. A dose lowering technique was utilized adhering to the principles of ALARA. CT DOSE: 1118.13 mGy.cm COMPARISON: None. FINDINGS: Motion degraded exam. No acute intracranial hemorrhage, midline shift, intracranial mass, hydrocephalus, territorial ischemia or abnormal extra-axial collection. Large chronic right MCA infarct with encephalomalacia and ex vacuo ventriculomegaly of the right lateral ventricle. Associated wallerian degeneration of the right thalamus and midbrain. White matter hypodensities suggestive of chronic microvascular ischemic disease. The calvarium is intact. Mastoid air cells are clear. Moderate mucosal thickening of the left maxillary sinus. Unremarkable soft tissues and orbits. IMPRESSION: 1. Motion degraded exam without acute intracranial abnormality. 2. Large chronic right MCA territorial infarct. ACT 112: Negative or not required by law. The above report was generated using voice recognition software. It may contain grammatical, syntax or spelling errors. Electronically signed by: Josue Rodriguez M.D. 10/18/2020 4:53 PM Duplex Scan Lower Extremity Artery 10/18/20 16:49 ULTRASOUND LEFT LOWER EXTREMITY ARTERIAL CLINICAL HISTORY: Left leg ulcer. Pain. COMPARISON STUDY: No priors. TECHNIQUE: Real-time grayscale and color Doppler sonography of the arteries of the left lower extremity is performed from the inguinal crease to the foot. Ankle-brachial indices were not assessed on this portable examination. FINDINGS: Atherosclerotic plaque and irregularity seen throughout the arteries of the left lower extremity. There are triphasic arterial waveforms in the left common femoral artery with velocities measuring up to 142 cm/s. The profunda femoris artery is patent with velocities measuring up to 140 cm/s. There is complete thrombosis of the proximal and mid portions of the left superficial femoral artery. Reconstitution of flow is seen within the distal superficial femoral artery with velocities measuring up to 130 cm/s. There are blunted monophasic waveforms in the distal superficial femoral artery, popliteal artery, and the calf arteries. The popliteal artery is patent with velocities measuring up to 20 cm/s. There is poor visualization of the calf arteries. The anterior tibial artery was not visualized and may be thrombosed. Portions of the peroneal vein appear patent with velocities measuring up to 11 cm/s. Portions of the posterior tibial artery appear patent. The distal calf arteries and dorsalis pedis artery were not visualized due to overlying bandaging material. IMPRESSION: 1. Advanced atherosclerotic disease in the left lower extremity. 2. There is a long segment of complete thrombosis within the proximal to mid portions of the left superficial femoral artery. 3. There is reconstitution of flow in the distal superficial femoral artery. 4. The calf arteries are not well assessed. The anterior tibial artery is obscured versus occluded. Dictated: 10/19/2020 8:06 AM Transcribed: 10/19/2020 8:25 AM Babs [id number] [facility] Electronically signed by: Navneet Darden M.D. 10/19/2020 8:[address] 10/19/20 00:08 CT ankle LT wo con HISTORY: 50 years-old Female LLE ulcer patient presents with soft tissue ulcer of the left hindfoot. Clinical concern for osteomyelitis. COMPARISON: Left ankle radiographs 10/18/2020 TECHNIQUE: Multiple axial CT images of the left ankle were obtained without the use of IV contrast. A dose lowering technique was used consistent with the principals of DIONI. FINDINGS: Limited exam secondary to positioning. Additionally, the calcaneus is partially outside the [id number]. Demineralized appearance of the bones. There is mild tibiotalar with mild to moderate subtalar osteoarthritis. Corticated ossification of the medial malleolus is suggestive of a chronic fracture. Soft tissue ulceration of the dorsal hindfoot/heel distribution is noted with skin thickening, moderate subcutaneous edema and subcutaneous emphysema which tracks into the lower calf subcutaneous tissues. No discrete drainable fluid collection. There is cortical irregularity and lucency of the calcaneus deep to this distribution measuring up to 10 mm on image 49. Enthesophytes of the calcaneus. Extensive arterial calcifications. Soft tissue gas extends into the thickened Achilles tendon. IMPRESSION: 1. Soft tissue ulcer of the dorsal hindfoot with subcutaneous emphysema and cellulitis changes. The soft tissue gas may be secondary to direct extension from the open wound versus necrotizing fasciitis. 2. Cortical irregularity with associated lucencies of the dorsal aspect of the posterior calcaneus are compatible with osteomyelitis. 3. No abscess. ACT 112: Negative or not required by law. The above report was generated using voice recognition software. It may contain grammatical, syntax or spelling errors. Electronically signed by: Josue Rodriguez M.D. 10/19/2020 7:30 AM Resident Activity Tracking Resident Involvement: Resident Care Provided Care Provided: Adult Hospital Medicine (1) DKA (diabetic ketoacidosis) Diabetes mellitus complication detail: without coma Diabetes mellitus type: other specified (including SALO) Qualified Code(s): E13.10 - Other specified diabetes mellitus with ketoacidosis without coma (2) Sepsis Sepsis acute organ dysfunction status: with acute organ dysfunction Sepsis type: sepsis due to unspecified organism Severe sepsis acute organ dysfunction type: encephalopathy Severe sepsis shock status: without septic shock Qualified Code(s): A41.9 - Sepsis, unspecified organism; R65.20 - Severe sepsis without septic shock; G93.40 - Encephalopathy, unspecified
[2020-10-22] MEDS: METOPROLOL SUCC 50MG EXT REL TAB PO SCH (08:50)
[2020-10-22] MEDS: ATORVASTATIN 40 MG TAB PO SCH (08:50)
[2020-10-22] MEDS: CLOPIDOGREL BISULFATE 75 MG TAB PO SCH (08:50)
[2020-10-22] MEDS: ASPIRIN 81 MG ECTAB PO SCH (08:50)
[2020-10-22] MEDS: lisinopril 20 MG TAB PO SCH (08:50)
[2020-10-22 09:16] LABS: Alanine Aminotransferase 21 U/L (12-78); Albumin Globulin Ratio 0.3 (0.9-2); Albumin Level 1.5 gm/dl (3.4-5.0); Alkaline Phosphatase 193 U/L (45-117); Aspartate Aminotransferase 23 U/L (15-37); BUN Creatinine Ratio 28.6 (10-20); Bilirubin,Total 0.2 mg/dl (0.2-1); Blood Urea Nitrogen 7 mg/dl (7-18); Calcium 9.5 mg/dl (8.5-10.1); Carbon Dioxide 28 mmol/L (21-32); Chloride 106 mmol/L (98-107); Creatinine Clr Calc Pharmacy 240.2 ml/min; Est GFR (African American) > 150.0 ml/min; Est GFR (Non-African American) 143.7 ml/min; Globulin 4.7 gm/dl (2.5-4.0); Glucose 65 mg/dl (70-99); Magnesium 1.9 mg/dl (1.8-2.4); Phosphorus 2.7 mg/dl (2.5-4.9); Potassium 3.4 mmol/L (3.5-5.1); Sodium 138 mmol/L (136-145); Total Protein 6.2 gm/dl (6.4-8.2)
[2020-10-22] MEDS: HEPARIN SOD 5,000 UNIT/0.5 ML VIAL SQ SCH ×2 (09:34→20:05)
[2020-10-22] MEDS: valACYclovir HCL 500 MG TABLET PO SCH ×3 (09:34→20:01)
[2020-10-22] MEDS ORDERED: INSULIN GLARGINE SOLOSTAR 100 UNITS/ML 3 ML PEN SC SCH (12:30)
--- NOTE | 2020-10-22 13:52 | Pharmacy Report ---
Pharmacy Glycemic Short Note 2 - Date of Service October 22, 2020 - Glycemic Short BSG Results (Last 24 hours): 10/21/20 10/21/20 10/21/20 14:25 16:28 20:32 Glucose 185 H POC Glucose 202 H 263 H 10/21/20 10/21/20 10/22/20 20:36 23:59 00:01 Glucose POC Glucose 275 H 238 H 242 H 10/22/20 10/22/20 10/22/20 04:22 07:36 08:00 Glucose 65 L POC Glucose 140 H 75 10/22/20 11:31 Glucose POC Glucose 222 H OUTPATIENT ANTIDIABETIC REGIMEN: * novolog achs * Lantus 50 units BID * Metformin BID * A1c: 12.9% ASSESSMENT: 10/22/20 * BSGs yesterday were [phone] and overnight were 242-140 mg/dL. Fasting BSG was 75 mg/dL. * Held AM Lantus until BSG rebounded at lunchtime (wanted to ensure patient's BSGs did not continue to trend downwards). * Give full daily dose in AM. Give 50 units (20% reduction due to hypoglycemia) * Tighten Novolog since BSGs trend upwards throughout the day. 10/21/20: * BSGs fairly well controlled today. Fasting bSG much improved today after 50 units of basal insulin today. Patient received 30 units this morning. Will continue with scale for this evening, but if fasting remains stable tomorrow will consider initiating lantus 25 units BID. * Patient is ordered a diet, ate breakfast but no carbs at lunch. Lunch BSG mildly elevated however dextrose infusion was still running until late morning. Will monitor trend, but may consider tightening CR. 10/20/20 * Insulin drip successfully transitioned off yesterday and Novolog initiated at weight-based severe stress *q2h* * BSG's have gradually trended down, now 160 mg/dL this AM. However, D5 1/2NS @ 40 mL/hr initiated (until patient is eating, per ICU rounds) * Will continue Lantus, but split BID and have evening dose be dependent on BSG. Significant insulin resistance from DKA may be dissipating therefore will reduce total daily dose from yesterday (which was 1 unit/kg) * Will lenthen Novolog interval to q4h but tighten CHO ratio 7/7/21 * Patient presenting with DKA/HHS initiated on an insulin infusion. Per discussion with boiler tube reamer, we did attempt to transition off the infusion as AG is closed, however infusion rates continue to increase 3 hours after initial lantus dose and dextrose fluid discontinuation. This could be due to high insulin resistance. Of note, most recent CO2 is 19. Will provide a second lantus dose now and continue the insulin infusion until 2 blood sugars < 180 mg/dL and rate decreases. Patient is NPO so am hesitant to give any more long acting basal insulin today after second lantus dose. PLAN FOR INPATIENT GLYCEMIC CONTROL: * Hold outpatient oral diabetes medications * Basal insulin * Lantus 50 units daily * Bolus insulin * NovoLog q4h * Goal range 110-140 mg/dL * Correction factor: 18 mg/dL/unit * Carb ratio: 7 g CHO/unit PLAN FOR DISCHARGE: * TBD
[2020-10-22] MEDS ORDERED: POTASSIUM ACETATE/NSS 10 MEQ/105 ML BAG IV ONE (17:30)
[2020-10-22] MEDS: cefTRIAXone SODIUM 2,000 MG in DEXTROSE 5% 50 ML IV SCH (21:35)
[2020-10-22] MEDS: ACETAMINOPHEN 500 MG TAB PO SCH (21:35)
[2020-10-23] MEDS: INSULIN ASPART 100 UNITS/ML 3 ML PEN SC SCH ×6 (00:17→21:45)
[2020-10-23] MEDS: ACETAMINOPHEN 500 MG TAB PO SCH ×3 (04:45→21:34)
[2020-10-23 08:07] LABS: Basophils # (auto) 0.01 K/uL (0-0.2); Eosinophils # (auto) 0.22 K/uL (0-0.5); Hematocrit (blood only) 29.7 % (37-47); Hemoglobin 9.9 g/dL (12.0-16.0); Immature Granulocytes # (auto) 0.23 K/uL (0.00-0.02); Immature Granulocytes % (auto) 1.1 %; Lymphocytes # (auto) 3.93 K/uL (1.2-3.4); Lymphocytes % (auto) 18.5 %; Mean Corpuscular Hemoglobin 30.1 pg (25-34); Mean Corpuscular Hgb Conc 33.3 g/dL (32-36); Mean Corpuscular Volume 90.3 fL (80-100); Monocytes # (auto) 2.57 K/uL (0.11-0.59); Monocytes % (auto) 12.1 %; Neutrophils # (auto) 14.27 K/uL (1.4-6.5); Neutrophils % (auto) 67.3 %; Platelet Count 380 K/uL (130-400); RDW Coefficient of Variation 13.8 % (11.5-14.5); RDW Standard Deviation 45.8 fL (36.4-46.3); Red Blood Count 3.29 M/uL (4.2-5.4); White Blood Count 21.23 K/uL (4.8-10.8)
[2020-10-23 08:33] LABS: Alanine Aminotransferase 21 U/L (12-78); Albumin Level 1.4 gm/dl (3.4-5.0); Aspartate Aminotransferase 13 U/L (15-37); BUN Creatinine Ratio 18.4 (10-20); Blood Urea Nitrogen 7 mg/dl (7-18); Calcium 9.4 mg/dl (8.5-10.1); Carbon Dioxide 31 mmol/L (21-32); Chloride 102 mmol/L (98-107); Creatinine Clr Calc Pharmacy 144.2 ml/min; Est GFR (African American) 140.8 ml/min; Est GFR (Non-African American) 121.4 ml/min; Glucose 122 mg/dl (70-99); Magnesium 1.9 mg/dl (1.8-2.4); Potassium 3.3 mmol/L (3.5-5.1); Sodium 137 mmol/L (136-145)
--- NOTE | 2020-10-23 08:43 | Hospitalist Progress Note ---
Date of Service October 23, 2020 Assessment & Plan (1) Diabetic wet gangrene of the foot: 50yo F with PMHx of HTN, HLD, IDDM, PVD, and CVA, admitted for management of DKA and sepsis secondary to foot ulcer with osteomyelitis. Heel ulcer with osteomyelitis: - CT showing soft tissue ulcer of the dorsal hindfoot with subcutaneous emphysema and cellulitis changes, as well as cortical irregularity with associated lucencies of the dorsal aspect of the posterior calcaneus compatible with osteomyelitis. - ceftriaxone per sensitivities of wound culture growing providencia rettgeri, treatment since 10/18 - Ortho consulted: likely surgical intervention this week (10/24), will likely require BKA amputation once medically stabilized - Consult wound care Sepsis 2/2 heel ulcer and osteo - On admission WBC 49.7, lactate 2.9, pro-stefano 0.79 - Placed on Zosyn and daptomycin --> ceftriaxone as above - Blood cultures no growth after 48 hours - febrile overnight on 10/23, blood cultures re-drawn metabolic derangements: resolved PVD (peripheral vascular disease): - LE duplex: atherosclerotic disease LLE, long segment of complete thrombosis within the proximal to mid portions of the left superficial femoral artery. Anterior tibial artery is obscured versus occluded. - Vascular consulted- no indication for surgical intervention at this time IDDM - A1C 12.9 on 10/19 - Insulin SQ sliding scale Stroke: - Hx significant chronic R MCA stroke - Continue home statin, aspirin, clopidogrel HTN/HLD - continue home lisinopril, metoprolol, and statin Varicella zoster (back): - valacyclovir QID for 7 days (10/20 - 10/27) Code: DNR/DNI Diet: Carb consistent, pureed Dispo: Med/Tele DVT prophylaxis: Heparin 5,000u SQ Q12 (2) Decubitus ulcer of left heel: (3) Cellulitis: (4) Acute metabolic encephalopathy: (5) PVD (peripheral vascular disease): Pt with SFA occlusion with reconstitution and good dopplerable ant tib and dp pulse in LLE. Pt with acute LLE infection with severe leukocytosis, and being treated for DKA. No indications for vascular surgical intervention at this time since she continues to have flow to her foot and is asymptomatic from PAD d/t hemiplegia and does not ambulate. Recommend pt undergo definitive orthopedic surgical intervention when stable. Please call if needed. (6) DKA (diabetic ketoacidosis): (7) Sepsis: Admission and Anticipated Discharge Date Admission Date: October 18, 2020 Supervising Physician Co-Signing Physician Notes I personally saw and examined the patient. I verified all polanco points and agree with resident physician Dr Elizabeth Chavez with the following exceptions and/or additions: No acute events overnight. No fever or chills O/E Left foot dressing not removed, no surrounding cellulitis Left heel ulcer - continue on antibiotics pending surgical intervention next week Subjective feeling okay this morning. no complaints of pain. does say that when the nurses move her she has some pain. talked about controlling the infection so orthopedics can remove the osteomyelitis and get her in a prosthesis. She expresses concerns that she won't be able to walk ever again, and wants to go on walks with her grandson. feeling okay this morning. no complaints of pain. does say that when the nurses move her she has some pain. talked about controlling the infection so orthopedics can remove the osteomyelitis and get her in a prosthesis. She expresses concerns that she won't be able to walk ever again, and wants to go on walks with her grandson. Review of Systems Constitutional: no fever and no chills Respiratory: no cough and no dyspnea Musculoskeletal: + muscle weakness Physical Exam Physical Exam: GENERAL: tired appearing, HEENT: atraumatic, non-icteric, CHEST: no wheezes, rhonchi or rales, normal respiratory effort CARDIOVASCULAR: heart regular rate and rhythm, no murmurs, gallops or rubs, no lower extremity edema ABD: nontender to palpation, nondistended, normal active bowel sounds SKIN: Left foot ulcer bandaged, no other rashes or suspicious lesions noted NEURO: more verbal than yesterday, chronic left sided hemiplegia from old MCA stroke. A&Ox3 : pierre catheter in place Extremities: left leg flexed at the hip in contracture Results & Data Results & Data ([facility]) Vital Signs (Past 12 Hours) Vital Signs Temp Pulse Pulse Resp BP Pulse Ox 10/23/20 07:00 36.3 C L 79 81 18 156/84 H 98 10/23/20 00:28 92 H 10/22/20 23:00 38.2 C H 96 H 18 141/83 H 97 Resident Activity Tracking Resident Involvement: Resident Care Provided Care Provided: Adult Hospital Medicine (1) DKA (diabetic ketoacidosis) Diabetes mellitus complication detail: without coma Diabetes mellitus type: other specified (including SALO) Qualified Code(s): E13.10 - Other specified diabetes mellitus with ketoacidosis without coma (2) Sepsis Sepsis acute organ dysfunction status: with acute organ dysfunction Sepsis type: sepsis due to unspecified organism Severe sepsis acute organ dysfunction type: encephalopathy Severe sepsis shock status: without septic shock Qualified Code(s): A41.9 - Sepsis, unspecified organism; R65.20 - Severe sepsis without septic shock; G93.40 - Encephalopathy, unspecified
[2020-10-23] MEDS: CLOPIDOGREL BISULFATE 75 MG TAB PO SCH (08:44)
[2020-10-23] MEDS: valACYclovir HCL 500 MG TABLET PO SCH ×3 (08:44→21:35)
[2020-10-23] MEDS: METOPROLOL SUCC 50MG EXT REL TAB PO SCH (08:44)
[2020-10-23] MEDS: ATORVASTATIN 40 MG TAB PO SCH (08:44)
[2020-10-23] MEDS: HEPARIN SOD 5,000 UNIT/0.5 ML VIAL SQ SCH ×2 (08:44→21:33)
[2020-10-23 08:45] LABS: Albumin Globulin Ratio 0.3 (0.9-2); Alkaline Phosphatase 183 U/L (45-117); Bilirubin,Total < 0.1 mg/dl (0.2-1); Globulin 5.2 gm/dl (2.5-4.0); Phosphorus 3.6 mg/dl (2.5-4.9); Total Protein 6.6 gm/dl (6.4-8.2)
[2020-10-23] MEDS: lisinopril 20 MG TAB PO SCH (08:45)
[2020-10-23] MEDS: ASPIRIN 81 MG ECTAB PO SCH (08:45)
[2020-10-23] MEDS: INSULIN GLARGINE SOLOSTAR 100 UNITS/ML 3 ML PEN SC SCH (08:59)
[2020-10-23] MEDS ORDERED: POTASSIUM CHLORIDE CRTAB 20 MEQ TABCR PO STA (09:41)
--- NOTE | 2020-10-23 13:38 | Pharmacy Report ---
Pharmacy Glycemic Short Note 2 - Date of Service October 23, 2020 - Glycemic Short BSG Results (Last 24 hours): 10/22/20 10/22/20 10/23/20 16:41 20:07 00:08 Glucose POC Glucose 211 H 292 H 200 H 10/23/20 10/23/20 10/23/20 04:13 07:30 07:45 Glucose 122 H POC Glucose 151 H 132 H 10/23/20 11:34 Glucose POC Glucose 188 H OUTPATIENT ANTIDIABETIC REGIMEN: * novolog achs * Lantus 50 units BID * Metformin BID * A1c: 12.9% ASSESSMENT: 10/23/20 * BSGs yesterday were [phone] and overnight were 200-151 mg/dL. Fasting BSG was 132 mg/dL. * Increase basal insulin by 10% to 55 units as fasting trending up slightly. * Tighten Novolog since BSGs trend upwards throughout the day. 10/22/20 * BSGs yesterday were [phone] and overnight were 242-140 mg/dL. Fasting BSG was 75 mg/dL. * Held AM Lantus until BSG rebounded at lunchtime (wanted to ensure patient's BSGs did not continue to trend downwards). * Give full daily dose in AM. Give 50 units (20% reduction due to hypoglycemia) * Tighten Novolog since BSGs trend upwards throughout the day. 10/21/20: * BSGs fairly well controlled today. Fasting bSG much improved today after 50 units of basal insulin today. Patient received 30 units this morning. Will continue with scale for this evening, but if fasting remains stable tomorrow will consider initiating lantus 25 units BID. * Patient is ordered a diet, ate breakfast but no carbs at lunch. Lunch BSG mildly elevated however dextrose infusion was still running until late morning. Will monitor trend, but may consider tightening CR. 10/20/20 * Insulin drip successfully transitioned off yesterday and Novolog initiated at weight-based severe stress *q2h* * BSG's have gradually trended down, now 160 mg/dL this AM. However, D5 1/2NS @ 40 mL/hr initiated (until patient is eating, per ICU rounds) * Will continue Lantus, but split BID and have evening dose be dependent on BSG. Significant insulin resistance from DKA may be dissipating therefore will reduce total daily dose from yesterday (which was 1 unit/kg) * Will lenthen Novolog interval to q4h but tighten CHO ratio 10/19/20 * Patient presenting with DKA/HHS initiated on an insulin infusion. Per discussion with family counselor, we did attempt to transition off the infusion as AG is closed, however infusion rates continue to increase 3 hours after initial lantus dose and dextrose fluid discontinuation. This could be due to high insulin resistance. Of note, most recent CO2 is 19. Will provide a second lantus dose now and continue the insulin infusion until 2 blood sugars < 180 mg/dL and rate decreases. Patient is NPO so am hesitant to give any more long acting basal insulin today after second lantus dose. PLAN FOR INPATIENT GLYCEMIC CONTROL: * Hold outpatient oral diabetes medications * Basal insulin * Lantus 55 units daily * Bolus insulin * NovoLog ACHS * Goal range 110-140 mg/dL * Correction factor: 15 mg/dL/unit * Carb ratio: 5 g CHO/unit PLAN FOR DISCHARGE: * Recommend lowering Lantus dose to 55 units once daily (may update value based upon patient's inhouse needs) + Novolog 10 units with meals * Recommend continuing metformin as an outpatient.
[2020-10-23] MEDS: cefTRIAXone SODIUM 2,000 MG in DEXTROSE 5% 50 ML IV SCH (21:31)
[2020-10-24] MEDS: MoRPHine SULFATE 2 MG/ML CARP IV PRN ×3 (03:31→19:46)
[2020-10-24] MEDS: ACETAMINOPHEN 500 MG TAB PO SCH ×3 (04:49→21:14)
--- NOTE | 2020-10-24 07:37 | Hospitalist Progress Note ---
Date of Service October 24, 2020 Assessment & Plan (1) Diabetic wet gangrene of the foot: 50yo F with PMHx of HTN, HLD, IDDM, PVD, and CVA, admitted for management of DKA and sepsis secondary to foot ulcer with osteomyelitis. Heel ulcer with osteomyelitis: CT showing soft tissue ulcer of the dorsal hindfoot with subcutaneous emphysema and cellulitis changes, as well as cortical irregularity with associated lucencies of the dorsal aspect of the posterior calcaneus compatible with osteomyelitis. Ceftriaxone per sensitivities of wound culture growing providencia rettgeri, treatment since 10/18. - Ortho consulted following recs: -likely surgical intervention this week (10/24), will likely require BKA amputation once medically stabilized - - - Consulted wound care appreciate recs - febrile overnight on 10/23, blood cultures re-drawn -NGTD -Ortho performing surgery tomorrow, NPO midnight Sepsis 2/2 heel ulcer and osteo Resolved On admission WBC 49.7, lactate 2.9, pro-stefano 0.79 - Placed on Zosyn and daptomycin --> ceftriaxone as above - Blood cultures no growth after 48 hours metabolic derangements: resolved PVD (peripheral vascular disease): LE duplex: atherosclerotic disease LLE, long segment of complete thrombosis within the proximal to mid portions of the left superficial femoral artery. Anterior tibial artery is obscured versus occluded. Vascular consulted- no indication for surgical intervention at this time, follow up as an outpt. IDDM A1C 12.9 on 10/19 indicating poory controlled DM. 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 Needs education regarding DM management. Outpt Regimen: novolog achs, Lantus 50 units, BID Metformin BID. - Glycemic CX placed following recs Stroke: - Hx significant chronic R MCA stroke - Continue home statin, aspirin, clopidogrel HTN/HLD - continue home lisinopril, metoprolol, and statin Varicella zoster (back): - valacyclovir QID for 7 days (10/20 - 10/27) Code: DNR/DNI Diet: Carb consistent, pureed Dispo: Med/Tele DVT prophylaxis: Heparin 5,000u SQ Q12 (2) Decubitus ulcer of left heel: (3) Cellulitis: (4) Acute metabolic encephalopathy: (5) PVD (peripheral vascular disease): (6) DKA (diabetic ketoacidosis): (7) Sepsis: Admission and Anticipated Discharge Date Admission Date: October 18, 2020 Supervising Physician Co-Signing Physician Notes Attending attestation Pt seen and examined in concert with Dr. Sky. In agreement with the documented findings as noted in the resident documentation with any exceptions or additions as noted here. Minimally conversant though does respond nonverbally with questions. No complaint of pain of the b/l LE during examination. On examination, S1/S2 nl RRR no MCG. Clear to auscultation bilateral bases without cough at bedside. Abd NT/ND BS+ve. LLE wound dressing C/D/I, Right foot w/ heel pad in place, pt extricated from waffle boot. Heel ulcer osteomyelitis - ortho, wound care consultation - continue ongoing IV mgmt. Ortho recommendations appreciated. Sepsis 2/2 osteomyelitis - BCx from 10/23 pending, continue ceftriaxone, broaden if fevers continue to occur Type 2 diabetes, uncontrolled - A1c 12.9 - continue adjusting basal/bolus insulin per glycemic mgmt protocol h/o CVA - continue statin, DAPT Else see resident documentation as noted. Subjective Patient seen at bedside. Patient slept last night not much appetite this morning. Per nurse she had multiple loose BM last night, was negative for C. Dif. Has pierre catheter, urine clear. She is currently awaiting surgery. PMH: R MCA stroke, HTN, HLD, PVD, CVD, IDDM Review of Systems Review of Systems: negative fever chills nausea vomitting diarrhea constipation headache dizziness numbness tingling rashes Physical Exam Physical Exam: Heart: RRR, no gallops/rubs/murmurs Lungs: cta b/l, no wheezes/rales/rhonchi Extremities: bazzi peeling skin b/l lower extremities, left foot wrapped, right root elevated in inflated bag heel is peeling and inflammed, thickened toenails Skin: Right back erythematous rash with scabs Results & Data Results & [facility] ([facility]) Vital Signs (Past 12 Hours) Vital Signs Temp Pulse Pulse Resp BP Pulse Ox 10/24/20 04:00 37.1 C 91 H 18 137/81 97 10/24/20 01:51 97 H 10/23/20 23:00 36.6 C 96 H 18 119/69 96 Laboratory Results 10/24/20 10/24/20 10/24/20 Range/Units 06:52 06:52 00:20 WBC Pending (4.8-10.8) K/uL RBC Pending (4.2-5.4) M/uL Hgb Pending (12.0-16.0) g/dL Hct Pending (37-47) % MCV Pending (80-100) fL MCH Pending (25-34) pg MCHC Pending (32-36) g/dL RDW Std Deviation (36.4-46.3) fL RDW Coeff of Travis (11.5-14.5) % Plt Count Pending (130-400) K/uL MPV (7.4-10.4) fL Immature Gran % (Auto) % Neut % (Auto) % Lymph % (Auto) % [place] % (Auto) % Eos % (Auto) % Baso % (Auto) % Neut # (Auto) (1.4-6.5) K/uL Lymph # (Auto) (1.2-3.4) K/uL [place] # (Auto) (0.11-0.59) K/uL Eos # (Auto) (0-0.5) K/uL Baso # (Auto) (0-0.2) K/uL Immature Gran # (Auto) (0.00-0.02) K/uL Sodium Pending (136-145) mmol/L Potassium Pending (3.5-5.1) mmol/L Chloride Pending (98-107) mmol/L Carbon Dioxide Pending (21-32) mmol/L Anion Gap Pending (3-11) BUN Pending (7-18) mg/dl Creatinine Pending (0.6-1.2) mg/dl Est Cr Clr Drug Dosing Pending ml/min Est GFR ( Amer) Pending ml/min Est GFR (Non-Af Amer) Pending ml/min BUN/Creatinine Ratio Pending (10-20) Glucose Pending (70-99) mg/dl POC Glucose 201 H (70-99) mg/dl Calcium Pending (8.5-10.1) mg/dl Phosphorus Pending (2.5-4.9) mg/dl Magnesium Pending (1.8-2.4) mg/dl Total Bilirubin Pending (0.2-1) mg/dl AST Pending (15-37) U/L ALT Pending (12-78) U/L Alkaline Phosphatase Pending (45-117) U/L Total Protein Pending (6.4-8.2) gm/dl Albumin Pending (3.4-5.0) gm/dl Globulin Pending (2.5-4.0) gm/dl Albumin/Globulin Ratio Pending (0.9-2) Stl C. diff Tox B Gene (Neg) 10/23/20 10/23/20 10/23/20 Range/Units 20:05 17:35 11:34 WBC (4.8-10.8) K/uL RBC (4.2-5.4) M/uL Hgb (12.0-16.0) g/dL Hct (37-47) % MCV (80-100) fL MCH (25-34) pg MCHC (32-36) g/dL RDW Std Deviation (36.4-46.3) fL RDW Coeff of Travis (11.5-14.5) % Plt Count (130-400) K/uL MPV (7.4-10.4) fL Immature Gran % (Auto) % Neut % (Auto) % Lymph % (Auto) % [place] % (Auto) % Eos % (Auto) % Baso % (Auto) % Neut # (Auto) (1.4-6.5) K/uL Lymph # (Auto) (1.2-3.4) K/uL [place] # (Auto) (0.11-0.59) K/uL Eos # (Auto) (0-0.5) K/uL Baso # (Auto) (0-0.2) K/uL Immature Gran # (Auto) (0.00-0.02) K/uL Sodium (136-145) mmol/L Potassium (3.5-5.1) mmol/L Chloride (98-107) mmol/L Carbon Dioxide (21-32) mmol/L Anion Gap (3-11) BUN (7-18) mg/dl Creatinine (0.6-1.2) mg/dl Est Cr Clr Drug Dosing ml/min Est GFR ( Amer) ml/min Est GFR (Non-Af Amer) ml/min BUN/Creatinine Ratio (10-20) Glucose (70-99) mg/dl POC Glucose 255 H 188 H (70-99) mg/dl Calcium (8.5-10.1) mg/dl Phosphorus (2.5-4.9) mg/dl Magnesium (1.8-2.4) mg/dl Total Bilirubin (0.2-1) mg/dl AST (15-37) U/L ALT (12-78) U/L Alkaline Phosphatase (45-117) U/L Total Protein (6.4-8.2) gm/dl Albumin (3.4-5.0) gm/dl Globulin (2.5-4.0) gm/dl Albumin/Globulin Ratio (0.9-2) Stl C. diff Tox B Gene Negative Cdiff Gene (Neg) 10/23/20 10/23/20 10/23/20 Range/Units 07:45 07:30 07:30 WBC 21.23 H (4.8-10.8) K/uL RBC 3.29 L (4.2-5.4) M/uL Hgb 9.9 L (12.0-16.0) g/dL Hct 29.7 L (37-47) % MCV 90.3 (80-100) fL MCH 30.1 (25-34) pg MCHC 33.3 (32-36) g/dL RDW Std Deviation 45.8 (36.4-46.3) fL RDW Coeff of Travis 13.8 (11.5-14.5) % Plt Count 380 (130-400) K/uL MPV 8.0 (7.4-10.4) fL Immature Gran % (Auto) 1.1 % Neut % (Auto) 67.3 % Lymph % (Auto) 18.5 % [place] % (Auto) 12.1 % Eos % (Auto) 1.0 % Baso % (Auto) 0.0 % Neut # (Auto) 14.27 H (1.4-6.5) K/uL Lymph # (Auto) 3.93 H (1.2-3.4) K/uL [place] # (Auto) 2.57 H (0.11-0.59) K/uL Eos # (Auto) 0.22 (0-0.5) K/uL Baso # (Auto) 0.01 (0-0.2) K/uL Immature Gran # (Auto) 0.23 H (0.00-0.02) K/uL Sodium 137 (136-145) mmol/L Potassium 3.3 L (3.5-5.1) mmol/L Chloride 102 (98-107) mmol/L Carbon Dioxide 31 (21-32) mmol/L Anion Gap 4.0 (3-11) BUN 7 (7-18) mg/dl Creatinine 0.40 L (0.6-1.2) mg/dl Est Cr Clr Drug Dosing 144.2 ml/min Est GFR ( Amer) 140.8 ml/min Est GFR (Non-Af Amer) 121.4 ml/min BUN/Creatinine Ratio 18.4 (10-20) Glucose 122 H (70-99) mg/dl POC Glucose 132 H (70-99) mg/dl Calcium 9.4 (8.5-10.1) mg/dl Phosphorus 3.6 (2.5-4.9) mg/dl Magnesium 1.9 (1.8-2.4) mg/dl Total Bilirubin < 0.1 L (0.2-1) mg/dl AST 13 L (15-37) U/L ALT 21 (12-78) U/L Alkaline Phosphatase 183 H (45-117) U/L Total Protein 6.6 (6.4-8.2) gm/dl Albumin 1.4 L (3.4-5.0) gm/dl Globulin 5.2 H (2.5-4.0) gm/dl Albumin/Globulin Ratio 0.3 L (0.9-2) Stl C. diff Tox B Gene (Neg) Medications Administered Current Inpatient Medications Acetaminophen (Acetaminophen 500 Mg Tab) 1,000 mg PO Q8H MATR Stop: 11/21/20 20:59 Last Admin: 10/24/20 04:49 Dose: 1,000 mg Documented by: Aspirin (Aspirin 81 Mg Ectab) 81 mg PO DAILY [facility] Stop: 11/18/20 08:59 Last Admin: 10/23/20 08:45 Dose: 81 mg Documented by: Atorvastatin Calcium (Atorvastatin 40 Mg Tab) 40 mg PO DAILY [facility] Stop: 11/18/20 08:59 Last Admin: 10/23/20 08:44 Dose: 40 mg Documented by: Clopidogrel Bisulfate (Clopidogrel Bisulfate 75 Mg Tab) 75 mg PO DAILY [facility] Stop: 11/18/20 08:59 Last Admin: 10/23/20 08:44 Dose: 75 mg Documented by: Dextrose (Dextrose 50% 50 Ml Syringe) 25 - 50 ml IV UD PRN; Protocol PRN Reason: Hypoglycemia Protocol Stop: 11/17/20 23:14 Glucagon (Glucagon For Inj 1 Mg Vial) 1 mg IM UD PRN; Protocol PRN Reason: Hypoglycemia Protocol Stop: 11/17/20 23:14 Glucose (Glucose 40% Gel 15 Gm Tube) 15 - 30 gm PO UD PRN; Protocol PRN Reason: Hypoglycemia Protocol Stop: 11/17/20 23:14 Glucose (Glucose 10 Tabs/Tube) 4 - 8 tabs PO UD PRN; Protocol PRN Reason: Hypoglycemia Protocol Stop: 11/17/20 23:14 Heparin Sodium (Porcine) (Heparin Sod 5,000 Unit/0.5 Ml Vial) 5,000 units SQ Q12 [facility] Stop: 11/18/20 20:59 Last Admin: 10/23/20 21:33 Dose: 5,000 units Documented by: Ceftriaxone Sodium 2,000 mg/ (Dextrose) 70 mls @ 140 mls/hr IV TODAY@2200 [facility] Stop: 10/26/20 23:59 Last Infusion: 10/23/20 22:05 Dose: Infused Documented by: Insulin Aspart (Insulin Aspart 100 Units/Ml 3 Ml Pen) 0 units SC ACHS [facility]; Protocol Stop: 11/22/20 16:29 Last Admin: 10/23/20 21:45 Dose: 10 units Documented by: Insulin Glargine (Insulin Glargine Solostar 100 Units/Ml 3 Ml Pen) 55 units SC DAILY [facility] Stop: 11/22/20 08:59 Last Admin: 10/23/20 08:59 Dose: 55 units Documented by: Ketorolac Tromethamine (Ketorolac Tromethamine 10 Mg Tablet) 10 mg PO Q6H PRN PRN Reason: moderate pain Stop: 10/27/20 20:35 Lisinopril (Lisinopril 20 Mg Tab) 20 mg PO DAILY [facility] Stop: 11/18/20 08:59 Last Admin: 10/23/20 08:45 Dose: 20 mg Documented by: Metoprolol Succinate (Metoprolol Succ 50mg Ext Rel Tab) 50 mg PO DAILY [facility] Stop: 11/18/20 08:59 Last Admin: 10/23/20 08:44 Dose: 50 mg Documented by: Metoprolol Tartrate (Metoprolol Tartrate 1 Mg/Ml Vial) 2.5 mg IV Q6 PRN PRN Reason: SBP > 160 Stop: 11/18/20 11:59 Last Admin: 10/20/20 03:18 Dose: 2.5 mg Documented by: Miscellaneous (Carbohydrates For Hypoglycemia ) 15 - 30 gm PO PRN PRN PRN Reason: Hypoglycemia Treatment Stop: 11/17/20 23:14 Miscellaneous Information (Pharmacy Glycemic Mgmt Consult) 1 ea N/A UD PRN PRN Reason: Consult Stop: 11/18/20 01:08 Morphine Sulfate (Morphine Sulfate 2 Mg/Ml Carp) 2 mg IV Q4H PRN PRN Reason: severe pain, pre-turning Stop: 11/02/20 08:56 Last Admin: 10/24/20 03:31 Dose: 2 mg Documented by: Nystatin (Nystatin Powder 15gm Btl) 1 appln EXT BID PRN PRN Reason: Affected Skin Folds Stop: 11/18/20 02:18 Valacyclovir HCl (Valacyclovir Hcl 500 Mg Tablet) 1,000 mg PO TID [facility] Stop: 10/27/20 09:59 Last Admin: 10/23/20 21:35 Dose: 1,000 mg Documented by: Resident Activity Tracking Resident Involvement: Resident Care Provided Care Provided: Adult Hospital Medicine (1) DKA (diabetic ketoacidosis) Diabetes mellitus complication detail: without coma Diabetes mellitus type: other specified (including SALO) Qualified Code(s): E13.10 - Other specified diabetes mellitus with ketoacidosis without coma (2) Sepsis Sepsis acute organ dysfunction status: with acute organ dysfunction Sepsis type: sepsis due to unspecified organism Severe sepsis acute organ dysfunction type: encephalopathy Severe sepsis shock status: without septic shock Qualified Code(s): A41.9 - Sepsis, unspecified organism; R65.20 - Severe sepsis without septic shock; G93.40 - Encephalopathy, unspecified
[2020-10-24 07:40] LABS: Basophils # (auto) 0.03 K/uL (0-0.2); Basophils % (auto) 0.1 %; Eosinophils # (auto) 0.29 K/uL (0-0.5); Eosinophils % (auto) 1.4 %; Hematocrit (blood only) 29.8 % (37-47); Hemoglobin 9.8 g/dL (12.0-16.0); Immature Granulocytes # (auto) 0.23 K/uL (0.00-0.02); Immature Granulocytes % (auto) 1.1 %; Lymphocytes # (auto) 4.55 K/uL (1.2-3.4); Lymphocytes % (auto) 21.9 %; Mean Corpuscular Hgb Conc 32.9 g/dL (32-36); Mean Corpuscular Volume 91.1 fL (80-100); Mean Platelet Volume 8.3 fL (7.4-10.4); Monocytes # (auto) 2.92 K/uL (0.11-0.59); Monocytes % (auto) 14.1 %; Neutrophils # (auto) 12.75 K/uL (1.4-6.5); Neutrophils % (auto) 61.4 %; Platelet Count 397 K/uL (130-400); RDW Coefficient of Variation 13.8 % (11.5-14.5); Red Blood Count 3.27 M/uL (4.2-5.4); White Blood Count 20.77 K/uL (4.8-10.8)
[2020-10-24 08:12] LABS: Albumin Level 1.5 gm/dl (3.4-5.0); BUN Creatinine Ratio 20.3 (10-20); Calcium 9.9 mg/dl (8.5-10.1); Creatinine Clr Calc Pharmacy 147.4 ml/min; Est GFR (African American) 143.2 ml/min; Est GFR (Non-African American) 123.5 ml/min; Magnesium 1.7 mg/dl (1.8-2.4)
[2020-10-24 08:19] LABS: Albumin Globulin Ratio 0.3 (0.9-2); Bilirubin,Total 0.3 mg/dl (0.2-1); Globulin 5.4 gm/dl (2.5-4.0); Phosphorus 2.8 mg/dl (2.5-4.9); Total Protein 6.9 gm/dl (6.4-8.2)
[2020-10-24] MEDS: INSULIN ASPART 100 UNITS/ML 3 ML PEN SC SCH ×4 (09:00→21:33)
[2020-10-24] MEDS: INSULIN GLARGINE SOLOSTAR 100 UNITS/ML 3 ML PEN SC SCH (09:00)
[2020-10-24] MEDS: valACYclovir HCL 500 MG TABLET PO SCH ×3 (09:10→21:14)
[2020-10-24] MEDS: METOPROLOL SUCC 50MG EXT REL TAB PO SCH (09:11)
[2020-10-24] MEDS: lisinopril 20 MG TAB PO SCH (09:11)
[2020-10-24] MEDS: ASPIRIN 81 MG ECTAB PO SCH (09:11)
[2020-10-24] MEDS: CLOPIDOGREL BISULFATE 75 MG TAB PO SCH (09:11)
[2020-10-24] MEDS: ATORVASTATIN 40 MG TAB PO SCH (09:11)
[2020-10-24] MEDS: HEPARIN SOD 5,000 UNIT/0.5 ML VIAL SQ SCH ×2 (09:12→21:15)
--- NOTE | 2020-10-24 13:14 | Orthopedic Progress Note ---
Date of Service October 24, 2020 Assessment & Plan (1) Decubitus ulcer of left heel: Despite prolonged antibiotics, the full-thickness skin loss over her heel cord is associated with persistent purulent drainage and elevated infectious markers; however, she clearly is not septic from this wound. She is a candidate for elective surgical amputation to treat this. Non-amputation surgical options are limited because of previously uncontrolled diabetes and location of the wound. I discussed her situation at length with her on speaker phone. She also participated in the discussion and indicated some level of understanding. She stated her desire was to have an amputation to get out of the hospital. I explained to her and her that medical management is a reasonable alternative. Discussed that aggressive superficial wound care as well as prolonged antibiotics can provide some treatment. It may be months until this would satisfactorily healed. Serial dressing changes or vacuum-assisted wound therapy would be used as an outpatient. She is nonambulatory and fully de pendent for care, so that remains an option. Alternatively, we could proceed with surgical care. A surgical debridement is unlikely to improve her chance of closing this wound. Likely, a below-knee amputation would be the best means to a closed wound with infection eradicated. Discussed that the level of the amputation will be dictated by the health of the tissues. Clearly we have made significant progress at maintaining some length because of the duration of antibiotics thus far. Her posterior skin flap is much healthier than it was on presentation. Her mental status is much more robust than she was at the end of last week. She can participate in this discussion and seemed to demonstrate understanding of her clinical situation. I discussed the risk of surgical intervention with an amputation remains blood loss, persistent wound problems requiring secondary surgery, complications from sepsis, antibiotic complications including . We discussed that I may need to proceed with a higher level amputation if necessary to eradicate the infection. My goal will be a stable length for the most rapid wound healing. Vascular surgery has been consulted and have not provided any guidance to the appropriate level because no substantial peripheral vascular disease. After our discussion, her asked appropriate questions, demonstrated good understanding, and at this time remains adamant that he wants to proceed with amputation to treat this decubitus ulcer. Patient demonstrated understanding and willingness to proceed. Her nurse was present for the entirety of the discussion. Informed consent will be documented. She should be n.p.o. at midnight and on-call to the OR for tomorrow afternoon. The antibiotic plan can continue. Dressing should be changed only as needed. (2) Cellulitis: Subjective Patient reports that she has had some pain. Nursing reports the use of morphine today. There was one episode of fever and cultures were obtained in the past 24 hours. Antibiotics have continued. Was able to put her on speaker phone today for our discussion. He was of the understanding that amputation would have happened already. I explained that we wanted to treat this medically to allow the tissues to recover to support an amputation wound. The plan was to reevaluate today. Does not appear there is been any wound care provided over the weekend. Review of Systems All systems reviewed & are unremarkable except as noted in HPI & below. Physical Exam General: She is conversant today. She is not oriented to place or time. 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 She did state that she was made to retire because of a stroke. She appeared to be in no distress about potential for amputation. She only asked to be fully asleep. LLE: The dressing was removed. It was fresh from today. There remains significant gangrenous and purulent material about the Achilles tendon that is clearly exposed now. There is substantially reduced edema and tenderness tracking along the gastroc. She cannot voluntarily perform any ankle dorsiflexion, plantarflexion, digital motion -this is chronic according to her on speaker phone. She has nondiscriminatory light touch sensationsaying it tickles to the plantar aspect of her foot. Cap refills 2-3-second. The dry eschar in the anterior aspect of her ankle did not express any purulence. The knee is without effusion. She is nontender along her proximal tibia from the diaphysis through the proximal metaphysis. Constitutional no acute distress Respiratory normal respiratory effort; no respiratory distress Cardiovascular Extremities: no pedal edema Results & Data Results & Data Laboratory Results Laboratory Tests 10/20/20 10/21/20 10/22/20 04:44 04:13 08:00 WBC 30.37 H* D 22.91 H 22.26 H Neut # (Auto) 10/23/20 10/24/20 07:30 06:52 WBC 21.23 H 20.77 H Neut # (Auto) 14.27 H 12.75 H . Diagnostic Findings . PG Care Time/CCT Total # of Minutes Spent Total Time Spent with Patient: Total time spent is greater than 50% in coordination of care (as documented) at patient's floor/unit and/or counseling patient: Coding Level of Care Code 97731 Subseq Hosp Care Lvl 3 Diagnoses Decubitus ulcer of left heel L89.629 Cellulitis L03.90
[2020-10-24] MEDS: cefTRIAXone SODIUM 2,000 MG in DEXTROSE 5% 50 ML IV SCH (21:15)
[2020-10-25] MEDS: INSULIN ASPART 100 UNITS/ML 3 ML PEN SC SCH ×6 (00:29→21:40)
[2020-10-25] MEDS: ACETAMINOPHEN 500 MG TAB PO SCH ×3 (03:56→20:10)
--- NOTE | 2020-10-25 06:57 | Hospitalist Progress Note ---
Date of Service October 25, 2020 Assessment & Plan (1) Diabetic wet gangrene of the foot: 50yo F with PMHx of HTN, HLD, IDDM, PVD, and CVA, admitted for management of DKA and sepsis secondary to foot ulcer with osteomyelitis. (1) Heel ulcer with osteomyelitis: CT showing soft tissue ulcer of the dorsal hindfoot with subcutaneous emphysema and cellulitis changes, as well as cortical irregularity with associated lucencies of the dorsal aspect of the posterior calcaneus compatible with osteomyelitis. Ceftriaxone per sensitivities of wound culture growing providencia rettgeri, treatment since 10/18. - Ortho consulted following recs, surgery performed today 10/25/20 - Consulted wound care appreciate recs - febrile overnight on 10/23/20, blood cultures re-drawn, NGTD 10/25/20 (2) Sepsis 2/2 heel ulcer and osteo Resolved On admission WBC 49.7, lactate 2.9, pro-stefano 0.79 - Placed on Zosyn and daptomycin, switched to ceftriaxone as above - Blood cultures no growth after 48 hours as of 10/25/20 - current WBC 20.15 (3) metabolic derangements: resolved (4) PVD (peripheral vascular disease): LE duplex: atherosclerotic disease LLE, long segment of complete thrombosis within the proximal to mid portions of the left superficial femoral artery. Anterior tibial artery is obscured versus occluded. Vascular consulted- no indication for surgical intervention at this time, follow up as an outpt. (5) IDDM A1C 12.9 on 10/19 indicating poory controlled DM. 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 Needs education regarding DM management. Outpt Regimen: novolog achs, Lantus 50 units, BID Metformin BID. Glycemic CX placed following recs - current blood glucose 193 -npo since midnight, will resume meals post surgery (6) Stroke: - Hx significant chronic R MCA stroke - Continue home statin - aspirin and clopidogrel held today for surgery (7) HTN/HLD - continue home lisinopril, metoprolol, and statin (8) Varicella zoster (back): - valacyclovir QID for 7 days (10/20 - 10/27) Code: DNR/DNI Diet: Carb consistent, pureed Dispo: Med/Tele DVT prophylaxis: Heparin 5,000u SQ Q12 (held today for surgery) Dina Sky Do PGY 1, FCM (2) Decubitus ulcer of left heel: (3) Cellulitis: (4) Acute metabolic encephalopathy: (5) DKA (diabetic ketoacidosis): (6) Sepsis: Admission and Anticipated Discharge Date Admission Date: October 18, 2020 Supervising Physician Co-Signing Physician Notes Attending attestation Pt seen and examined in concert with Dr. Sky. In agreement with the documented findings as noted in the resident documentation with any exceptions or additions as noted here. Resting comfortably following procedure today without acute complaint. Pain well controlled on present regimen. On examination, S1/S2 nl RRR no MCG. Clear to auscultation bilateral bases without cough at bedside. Abd NT/ND BS+ve. LLE wound dressing C/D/I, Right foot w/ heel pad in place in waffle boot Heel ulcer osteomyelitis - ortho, wound care consult - POD #0 - continue ongoing IV mgmt. Ortho recommendations appreciated. Pain control. Sepsis 2/2 osteomyelitis - BCx from 10/23 pending, continue ceftriaxone, broaden if fevers continue to occur, consider D/C following procedure based on Cx results Type 2 diabetes, uncontrolled - A1c 12.9 - continue adjusting basal/bolus insulin per glycemic mgmt protocol h/o CVA - continue statin, DAPT to resume postoperatively Else see resident documentation as noted. Subjective Patient seen at bedside. She slept well and ate dinner last night, npo since midnight with small sips for medication, anticoagulants held this morning. Aguilar is in place, urine yellow and clear. Patient understands she will get BKA this afternoon and would like to eat supper afterwards. PMH: R MCA stroke, HTN, HLD, PVD, CVD, IDDM Review of Systems Review of Systems: negative fever chills SOB palpitations nausea vomitting diarrhea constipation numbness tingling Physical Exam Physical Exam: Heart: RRR, no gallops/murmurs/rubs Lungs: CTA b/l, no wheezes/rales/rhonchi Extremities: R leg elevated in waffle heel with erythema, L foot in new bandages Results & Data Results & Data ([facility]) Vital Signs (Past 12 Hours) Vital Signs Temp Pulse Pulse Resp BP Pulse Ox 10/25/20 04:00 37 C 83 18 127/81 98 10/24/20 23:34 84 10/24/20 22:50 37 C 83 18 109/56 L 93 10/24/20 19:35 36.6 C 99 H 20 133/75 97 Laboratory Results 10/25/20 10/25/20 10/25/20 Range/Units 07:49 07:03 07:03 WBC 20.13 H (4.8-10.8) K/uL RBC 3.26 L (4.2-5.4) M/uL Hgb 9.9 L (12.0-16.0) g/dL Hct 29.6 L (37-47) % MCV 90.8 (80-100) fL MCH 30.4 (25-34) pg MCHC 33.4 (32-36) g/dL RDW Std Deviation 45.9 (36.4-46.3) fL RDW Coeff of Travis 13.8 (11.5-14.5) % Plt Count 387 (130-400) K/uL MPV 8.2 (7.4-10.4) fL Immature Gran % (Auto) 1.3 % Neut % (Auto) 57.9 % Lymph % (Auto) 24.0 % [place] % (Auto) 14.6 % Eos % (Auto) 2.1 % Baso % (Auto) 0.1 % Neut # (Auto) 11.65 H (1.4-6.5) K/uL Lymph # (Auto) 4.83 H (1.2-3.4) K/uL [place] # (Auto) 2.94 H (0.11-0.59) K/uL Eos # (Auto) 0.42 (0-0.5) K/uL Baso # (Auto) 0.02 (0-0.2) K/uL Immature Gran # (Auto) 0.27 H (0.00-0.02) K/uL Sodium 132 L (136-145) mmol/L Potassium 3.9 (3.5-5.1) mmol/L Chloride 99 (98-107) mmol/L Carbon Dioxide 29 (21-32) mmol/L Anion Gap 4.0 (3-11) BUN 13 D (7-18) mg/dl Creatinine 0.42 L (0.6-1.2) mg/dl Est Cr Clr Drug Dosing 133.6 ml/min Est GFR ( Amer) 138.5 ml/min Est GFR (Non-Af Amer) 119.5 ml/min BUN/Creatinine Ratio 31.0 H (10-20) Glucose 193 H (70-99) mg/dl POC Glucose 220 H (70-99) mg/dl Calcium 10.0 (8.5-10.1) mg/dl 10/25/20 10/25/20 10/24/20 Range/Units 03:41 00:18 20:30 WBC (4.8-10.8) K/uL RBC (4.2-5.4) M/uL Hgb (12.0-16.0) g/dL Hct (37-47) % MCV (80-100) fL MCH (25-34) pg MCHC (32-36) g/dL RDW Std Deviation (36.4-46.3) fL RDW Coeff of Travis (11.5-14.5) % Plt Count (130-400) K/uL MPV (7.4-10.4) fL Immature Gran % (Auto) % Neut % (Auto) % Lymph % (Auto) % [place] % (Auto) % Eos % (Auto) % Baso % (Auto) % Neut # (Auto) (1.4-6.5) K/uL Lymph # (Auto) (1.2-3.4) K/uL [place] # (Auto) (0.11-0.59) K/uL Eos # (Auto) (0-0.5) K/uL Baso # (Auto) (0-0.2) K/uL Immature Gran # (Auto) (0.00-0.02) K/uL Sodium (136-145) mmol/L Potassium (3.5-5.1) mmol/L Chloride (98-107) mmol/L Carbon Dioxide (21-32) mmol/L Anion Gap (3-11) BUN (7-18) mg/dl Creatinine (0.6-1.2) mg/dl Est Cr Clr Drug Dosing ml/min Est GFR ( Amer) ml/min Est GFR (Non-Af Amer) ml/min BUN/Creatinine Ratio (10-20) Glucose (70-99) mg/dl POC Glucose 213 H 205 H 270 H (70-99) mg/dl Calcium (8.5-10.1) mg/dl 10/24/20 10/24/20 Range/Units 16:53 11:47 WBC (4.8-10.8) K/uL RBC (4.2-5.4) M/uL Hgb (12.0-16.0) g/dL Hct (37-47) % MCV (80-100) fL MCH (25-34) pg MCHC (32-36) g/dL RDW Std Deviation (36.4-46.3) fL RDW Coeff of Travis (11.5-14.5) % Plt Count (130-400) K/uL MPV (7.4-10.4) fL Immature Gran % (Auto) % Neut % (Auto) % Lymph % (Auto) % [place] % (Auto) % Eos % (Auto) % Baso % (Auto) % Neut # (Auto) (1.4-6.5) K/uL Lymph # (Auto) (1.2-3.4) K/uL [place] # (Auto) (0.11-0.59) K/uL Eos # (Auto) (0-0.5) K/uL Baso # (Auto) (0-0.2) K/uL Immature Gran # (Auto) (0.00-0.02) K/uL Sodium (136-145) mmol/L Potassium (3.5-5.1) mmol/L Chloride (98-107) mmol/L Carbon Dioxide (21-32) mmol/L Anion Gap (3-11) BUN (7-18) mg/dl Creatinine (0.6-1.2) mg/dl Est Cr Clr Drug Dosing ml/min Est GFR ( Amer) ml/min Est GFR (Non-Af Amer) ml/min BUN/Creatinine Ratio (10-20) Glucose (70-99) mg/dl POC Glucose 243 H 197 H (70-99) mg/dl Calcium (8.5-10.1) mg/dl Medications Administered Current Inpatient Medications Acetaminophen (Acetaminophen 500 Mg Tab) 1,000 mg PO Q8H [facility] Stop: 11/21/20 20:59 Last Admin: 10/25/20 03:56 Dose: 1,000 mg Documented by: Aspirin (Aspirin 81 Mg Ectab) 81 mg PO DAILY [facility] Stop: 11/18/20 08:59 Last Admin: 10/25/20 08:35 Dose: Not Given Documented by: Atorvastatin Calcium (Atorvastatin 40 Mg Tab) 40 mg PO DAILY [facility] Stop: 11/18/20 08:59 Last Admin: 10/25/20 08:24 Dose: 40 mg Documented by: Clopidogrel Bisulfate (Clopidogrel Bisulfate 75 Mg Tab) 75 mg PO DAILY [facility] Stop: 11/18/20 08:59 Last Admin: 10/25/20 08:35 Dose: Not Given Documented by: Dextrose (Dextrose 50% 50 Ml Syringe) 25 - 50 ml IV UD PRN; Protocol PRN Reason: Hypoglycemia Protocol Stop: 11/17/20 23:14 Glucagon (Glucagon For Inj 1 Mg Vial) 1 mg IM UD PRN; Protocol PRN Reason: Hypoglycemia Protocol Stop: 11/17/20 23:14 Glucose (Glucose 40% Gel 15 Gm Tube) 15 - 30 gm PO UD PRN; Protocol PRN Reason: Hypoglycemia Protocol Stop: 11/17/20 23:14 Glucose (Glucose 10 Tabs/Tube) 4 - 8 tabs PO UD PRN; Protocol PRN Reason: Hypoglycemia Protocol Stop: 11/17/20 23:14 Heparin Sodium (Porcine) (Heparin Sod 5,000 Unit/0.5 Ml Vial) 5,000 units SQ Q12 [facility] Stop: 11/18/20 20:59 Last Admin: 10/25/20 08:35 Dose: Not Given Documented by: Ceftriaxone Sodium 2,000 mg/ (Dextrose) 70 mls @ 140 mls/hr IV TODAY@2200 [facility] Stop: 10/26/20 23:59 Last Infusion: 10/24/20 22:16 Dose: Infused Documented by: Insulin Aspart (Insulin Aspart 100 Units/Ml 3 Ml Pen) 0 units SC ACHS [facility]; Protocol Stop: 11/22/20 16:29 Last Admin: 10/25/20 08:14 Dose: 8 units Documented by: Insulin Glargine (Insulin Glargine Solostar 100 Units/Ml 3 Ml Pen) 55 units SC DAILY [facility] Stop: 11/22/20 08:59 Last Admin: 10/25/20 08:13 Dose: 55 units Documented by: Ketorolac Tromethamine (Ketorolac Tromethamine 10 Mg Tablet) 10 mg PO Q6H PRN PRN Reason: moderate pain Stop: 10/27/20 20:35 Lisinopril (Lisinopril 20 Mg Tab) 20 mg PO DAILY [facility] Stop: 11/18/20 08:59 Last Admin: 10/25/20 08:23 Dose: 20 mg Documented by: Metoprolol Succinate (Metoprolol Succ 50mg Ext Rel Tab) 50 mg PO DAILY [facility] Stop: 11/18/20 08:59 Last Admin: 10/25/20 08:24 Dose: 50 mg Documented by: Metoprolol Tartrate (Metoprolol Tartrate 1 Mg/Ml Vial) 2.5 mg IV Q6 PRN PRN Reason: SBP > 160 Stop: 11/18/20 11:59 Last Admin: 10/20/20 03:18 Dose: 2.5 mg Documented by: Miscellaneous (Carbohydrates For Hypoglycemia ) 15 - 30 gm PO PRN PRN PRN Reason: Hypoglycemia Treatment Stop: 11/17/20 23:14 Miscellaneous Information (Pharmacy Glycemic Mgmt Consult) 1 ea N/A UD PRN PRN Reason: Consult Stop: 11/18/20 01:08 Morphine Sulfate (Morphine Sulfate 2 Mg/Ml Carp) 2 mg IV Q4H PRN PRN Reason: severe pain, pre-turning Stop: 11/02/20 08:56 Last Admin: 10/24/20 19:46 Dose: 2 mg Documented by: Nystatin (Nystatin Powder 15gm Btl) 1 appln EXT BID PRN PRN Reason: Affected Skin Folds Stop: 11/18/20 02:18 Valacyclovir HCl (Valacyclovir Hcl 500 Mg Tablet) 1,000 mg PO TID [facility] Stop: 10/27/20 09:59 Last Admin: 10/25/20 08:23 Dose: 1,000 mg Documented by: Resident Activity Tracking Resident Involvement: Resident Care Provided Care Provided: Adult Hospital Medicine (1) DKA (diabetic ketoacidosis) Diabetes mellitus complication detail: without coma Diabetes mellitus type: other specified (including SALO) Qualified Code(s): E13.10 - Other specified diabetes mellitus with ketoacidosis without coma (2) Sepsis Sepsis acute organ dysfunction status: with acute organ dysfunction Sepsis type: sepsis due to unspecified organism Severe sepsis acute organ dysfunction type: encephalopathy Severe sepsis shock status: without septic shock Qualified Code(s): A41.9 - Sepsis, unspecified organism; R65.20 - Severe sepsis without septic shock; G93.40 - Encephalopathy, unspecified
[2020-10-25 07:28] LABS: Basophils # (auto) 0.02 K/uL (0-0.2); Basophils % (auto) 0.1 %; Eosinophils # (auto) 0.42 K/uL (0-0.5); Eosinophils % (auto) 2.1 %; Hematocrit (blood only) 29.6 % (37-47); Hemoglobin 9.9 g/dL (12.0-16.0); Immature Granulocytes # (auto) 0.27 K/uL (0.00-0.02); Immature Granulocytes % (auto) 1.3 %; Lymphocytes # (auto) 4.83 K/uL (1.2-3.4); Mean Corpuscular Hemoglobin 30.4 pg (25-34); Mean Corpuscular Hgb Conc 33.4 g/dL (32-36); Mean Corpuscular Volume 90.8 fL (80-100); Mean Platelet Volume 8.2 fL (7.4-10.4); Monocytes # (auto) 2.94 K/uL (0.11-0.59); Monocytes % (auto) 14.6 %; Neutrophils # (auto) 11.65 K/uL (1.4-6.5); Neutrophils % (auto) 57.9 %; Platelet Count 387 K/uL (130-400); RDW Coefficient of Variation 13.8 % (11.5-14.5); RDW Standard Deviation 45.9 fL (36.4-46.3); Red Blood Count 3.26 M/uL (4.2-5.4); White Blood Count 20.13 K/uL (4.8-10.8)
[2020-10-25 07:55] LABS: Creatinine Clr Calc Pharmacy 133.6 ml/min; Est GFR (African American) 138.5 ml/min; Est GFR (Non-African American) 119.5 ml/min; Potassium 3.9 mmol/L (3.5-5.1)
[2020-10-25] MEDS: INSULIN GLARGINE SOLOSTAR 100 UNITS/ML 3 ML PEN SC SCH (08:13)
[2020-10-25] MEDS: valACYclovir HCL 500 MG TABLET PO SCH ×3 (08:23→20:12)
[2020-10-25] MEDS: lisinopril 20 MG TAB PO SCH (08:23)
[2020-10-25] MEDS: ATORVASTATIN 40 MG TAB PO SCH (08:24)
[2020-10-25] MEDS: METOPROLOL SUCC 50MG EXT REL TAB PO SCH (08:24)
[2020-10-25] MEDS: HEPARIN SOD 5,000 UNIT/0.5 ML VIAL SQ SCH ×2 (08:35→20:11)
[2020-10-25] MEDS: ASPIRIN 81 MG ECTAB PO SCH (08:35)
[2020-10-25] MEDS: CLOPIDOGREL BISULFATE 75 MG TAB PO SCH (08:35)
--- NOTE | 2020-10-25 13:07 | Pharmacy Report ---
Pharmacy Glycemic Short Note 2 - Date of Service October 25, 2020 - Glycemic Short BSG Results (Last 24 hours): 10/24/20 10/24/20 10/25/20 16:53 20:30 00:18 Glucose POC Glucose 243 H 270 H 205 H 10/25/20 10/25/20 10/25/20 03:41 07:03 07:49 Glucose 193 H POC Glucose 213 H 220 H 10/25/20 11:31 Glucose POC Glucose 182 H OUTPATIENT ANTIDIABETIC REGIMEN: * novolog achs * Lantus 50 units BID * Metformin BID * A1c: 12.9% ASSESSMENT: 10/25/20: * Pt has received 142 units of insulin over the past 24hrs (45% increase compared to 10/23) * 55 units of basal with Lantus * 87 units of bolus with NovoLog * BSGs ranged from 197 - 270 mg/dL * Fasting BSG is above goal. Will increase basal insulin starting tomorrow. * Post prandial elevation continues. Tighten Novolog CF/CR. Anticipate better control today per patient is NPO for Lilly LAZARO. 10/23/20 * BSGs yesterday were [phone] and overnight were 200-151 mg/dL. Fasting BSG was 132 mg/dL. * Increase basal insulin by 10% to 55 units as fasting trending up slightly. * Tighten Novolog since BSGs trend upwards throughout the day. 10/22/20 * BSGs yesterday were [phone] and overnight were 242-140 mg/dL. Fasting BSG was 75 mg/dL. * Held AM Lantus until BSG rebounded at lunchtime (wanted to ensure patient's BSGs did not continue to trend downwards). * Give full daily dose in AM. Give 50 units (20% reduction due to hypoglycemia) * Tighten Novolog since BSGs trend upwards throughout the day. 10/21/20: * BSGs fairly well controlled today. Fasting bSG much improved today after 50 units of basal insulin today. Patient received 30 units this morning. Will continue with scale for this evening, but if fasting remains stable tomorrow will consider initiating lantus 25 units BID. * Patient is ordered a diet, ate breakfast but no carbs at lunch. Lunch BSG mildly elevated however dextrose infusion was still running until late morning. Will monitor trend, but may consider tightening CR. 10/20/20 * Insulin drip successfully transitioned off yesterday and Novolog initiated at weight-based severe stress *q2h* * BSG's have gradually trended down, now 160 mg/dL this AM. However, D5 1/2NS @ 40 mL/hr initiated (until patient is eating, per ICU rounds) * Will continue Lantus, but split BID and have evening dose be dependent on BSG. Significant insulin resistance from DKA may be dissipating therefore will reduce total daily dose from yesterday (which was 1 unit/kg) * Will lenthen Novolog interval to q4h but tighten CHO ratio 10/19/20 * Patient presenting with DKA/HHS initiated on an insulin infusion. Per discussion with aircraft designer, we did attempt to transition off the infusion as AG is closed, however infusion rates continue to increase 3 hours after initial lantus dose and dextrose fluid discontinuation. This could be due to high insulin resistance. Of note, most recent CO2 is 19. Will provide a second lantus dose now and continue the insulin infusion until 2 blood sugars < 180 mg/dL and rate decreases. Patient is NPO so am hesitant to give any more long acting basal insulin today after second lantus dose. PLAN FOR INPATIENT GLYCEMIC CONTROL: * Hold outpatient oral diabetes medications * Basal insulin * Lantus 55-60 units daily (60 units for BSG > 140 mg/dL) * Bolus insulin * NovoLog ACHS * Goal range 110-140 mg/dL * Correction factor: 10 mg/dL/unit * Carb ratio: 3 g CHO/unit PLAN FOR DISCHARGE:
--- NOTE | 2020-10-25 14:15 | Anesthesiology Consultation ---
Date of Service October 25, 2020 Assessment & Plan (1) Encounter for pre-operative examination: Chart Review Chart Review: Acceptable Risk for Surgery History Surgery Operation Date: 10/25/20 07:00 Proposed Procedures p Left Below Knee Amputation - Luis A Vieira MD Height/Weight Height: 5 ft Weight: 63.8 kg Allergies Allergy/AdvReac Type Severity Reaction Status Date / Time No Known Allergies Allergy Verified 10/18/20 18:10 Medications Home Medications Medication Instructions Recorded Confirmed Last Taken Toviaz 8 mg PO DAILY 08/28/19 10/18/20 Unknown aspirin 81 mg PO DAILY 08/28/19 10/18/20 Unknown atorvastatin 40 mg PO DAILY 08/28/19 10/18/20 Unknown clopidogrel [Plavix] 75 mg PO DAILY 08/28/19 10/18/20 Unknown insulin aspart U-100 [Novolog 0 unit SUBCUT ACHS 08/28/19 10/18/20 Unknown Flexpen U-100 Insulin] lisinopril 20 mg PO DAILY 08/28/19 10/18/20 Unknown metformin 500 mg PO BID 08/28/19 10/18/20 Unknown metoprolol succinate 50 mg PO DAILY 08/28/19 10/18/20 Unknown pediatric multivitamin 2 tab PO DAILY 08/28/19 10/18/20 Unknown Lantus Solostar U-100 Insulin 50 unit SUBCUT BID #1 pen 09/01/19 10/18/20 10/18/20 Active Medications Generic Name Dose Route Start Last Admin Trade Name Freq PRN Reason Stop Dose Admin Acetaminophen 1,000 mg 10/22/20 21:00 10/25/20 12:16 Acetaminophen 500 Mg Tab PO 11/21/20 20:59 Not Given Q8H [facility] Aspirin 81 mg 10/19/20 09:00 10/25/20 08:35 Aspirin 81 Mg Ectab PO 11/18/20 08:59 Not Given DAILY [facility] Atorvastatin Calcium 40 mg 10/19/20 09:00 10/25/20 08:24 Atorvastatin 40 Mg Tab PO 11/18/20 08:59 40 mg DAILY [facility] Administration Clopidogrel Bisulfate 75 mg 10/19/20 09:00 10/25/20 08:35 Clopidogrel Bisulfate 75 Mg Tab PO 11/18/20 08:59 Not Given DAILY [facility] Heparin Sodium (Porcine) 5,000 units 10/19/20 21:00 10/25/20 08:35 Heparin Sod 5,000 Unit/0.5 Ml Vial SQ 11/18/20 20:59 Not Given Q12 [facility] Ceftriaxone Sodium 2,000 mg/ 70 mls @ 140 mls/hr 10/21/20 22:00 10/24/20 22:16 Dextrose IV 10/26/20 23:59 Infused TODAY@2200 [facility] Infusion Insulin Aspart 0 units 10/23/20 16:30 10/25/20 11:50 Insulin Aspart 100 Units/Ml 3 Ml Pen SC 11/22/20 16:29 5 units ACHS [facility] Administration Protocol Lisinopril 20 mg 10/19/20 09:00 10/25/20 08:23 Lisinopril 20 Mg Tab PO 11/18/20 08:59 20 mg DAILY [facility] Administration Metoprolol Succinate 50 mg 10/19/20 09:00 10/25/20 08:24 Metoprolol Succ 50mg Ext Rel Tab PO 11/18/20 08:59 50 mg DAILY [facility] Administration Metoprolol Tartrate 2.5 mg 10/19/20 09:56 10/20/20 03:18 Metoprolol Tartrate 1 Mg/Ml Vial IV 11/18/20 11:59 2.5 mg Q6 PRN Administration SBP > 160 Morphine Sulfate 2 mg 10/22/20 20:35 10/24/20 19:46 Morphine Sulfate 2 Mg/Ml Carp IV 11/02/20 08:56 2 mg Q4H PRN Administration severe pain, pre-turning Valacyclovir HCl 1,000 mg 10/20/20 10:00 10/25/20 08:23 Valacyclovir Hcl 500 Mg Tablet PO 10/27/20 09:59 1,000 mg TID [facility] Administration Past Medical History Medical History Chronic hypertension Diabetes Right middle cerebral artery stroke Past Surgical History Surgical History History of cholecystectomy Social History Smoking Status: Never smoker Physical Exam Vital Signs Last Vital Signs Temp 37.0 C 10/25/20 11:37 Pulse 83 10/25/20 11:37 Resp 18 10/25/20 11:37 BP 131/79 10/25/20 11:37 Pulse Ox 98 10/25/20 11:37 Testing Laboratory Results 10/25/20 07:03 10/25/20 07:03 PT 11.4 Seconds (9.0-12.0) 10/18/20 14:25 INR 1.1 (0.9-1.1) 10/18/20 14:25 APTT < 20.0 Seconds (21.0-31.0) L 10/18/20 14:25 Hemoglobin A1c 12.9 % (4.5-5.6) H 10/19/20 05:43 Urine Color Yellow 10/18/20 15:39 Urine Appearance Clear (Clear) 10/18/20 15:39 Urine pH 5.0 (4.5-7.5) 10/18/20 15:39 Ur Specific [place] 1.026 (1.000-1.030) 10/18/20 15:39 Urine Protein 1+ (Negative) H 10/18/20 15:39 Urine Glucose (UA) 3+ (Negative) H 10/18/20 15:39 Urine Ketones 4+ (Negative) H 10/18/20 15:39 Urine Nitrite Negative (Negative) 10/18/20 15:39 Ur Leukocyte Esterase Negative (Negative) 10/18/20 15:39 Urine WBC (Auto) 10-30 /hpf (0-5) H 10/18/20 15:39 Urine RBC (Auto) 10-30 /hpf (0-4) H 10/18/20 15:39 U Hyaline Cast (Auto) 0 /lpf (0-5) 10/18/20 15:39 U Epithel Cells (Auto) >30 /lpf (0-5) H 10/18/20 15:39 Urine Bacteria (Auto) 1+ (Negative) H 10/18/20 15:39 10/23/20 11:04 Aerobic Blood Culture - Preliminary Blood No growth in Aerobic bottle after 48 hours. Anaerobic Blood Culture - Preliminary No growth in Anaerobic bottle after 48 hours. 10/23/20 11:19 Aerobic Blood Culture - Preliminary Blood No growth in Aerobic bottle after 48 hours. Anaerobic Blood Culture - Preliminary No growth in Anaerobic bottle after 48 hours. 10/18/20 15:17 Aerobic Blood Culture - Final Blood No growth in Aerobic bottle after 5 days. Anaerobic Blood Culture - Final No growth in Anaerobic bottle after 5 days. 10/18/20 15:19 Aerobic Blood Culture - Final Blood No growth in Aerobic bottle after 5 days. Anaerobic Blood Culture - Final 10/18/20 15:39 Urine Culture - Final Urine,Indwelling Cath Three types of organisms present, all low counts probable skin valerio. No further identifications or sensitivities to follow. 10/18/20 14:31 Gram Stain - Final Ankle Wound Culture - Final Providencia rettgeri 10/25/20 10/25/20 10/25/20 11:31 07:49 03:41 POC Glucose 182 H 220 H 213 H Electrocardiogram Date: 10/18/20 Findings: + NSST changes, + ST @ (106) and + DE (possible old anterior and i nferior infarcts) Chest X-Ray Date: 10/18/20 Findings: + NAD and + atelectasis (mild)
[2020-10-25] MEDS ORDERED: PROPOFOL IV EMULSION 10 MG/ML 20 ML VIAL IV ONE (14:21)
[2020-10-25] MEDS ORDERED: LIDOCAINE 2% 2 ML VIAL/AMP(20MG/ML) INFIL ONE (14:21)
[2020-10-25] MEDS ORDERED: ONDANSETRON INJ 2 MG/ML 2 ML VIAL ONE (14:21)
[2020-10-25] MEDS ORDERED: fentaNYL citrate 100 MCG/2 ML VIAL ONE ×2 (14:22→16:29)
[2020-10-25] MEDS ORDERED: MIDAZOLAM HCL 1 MG/ML 2ML VIAL ONE (14:22)
[2020-10-25] MEDS ORDERED: KETAMINE 50 MG/5 ML SYRINGE ONE (14:22)
[2020-10-25] MEDS ORDERED: SODIUM CHLORIDE 0.9% INJ 10 ML VIAL ONE (14:33)
[2020-10-25] MEDS ORDERED: ROPIVACAINE 0.5% 5 MG/ML 30 ML VIAL ONE (14:33)
--- NOTE | 2020-10-25 14:41 | Orthopedic Progress Note ---
Date of Service October 25, 2020 Assessment & Plan (1) Diabetic wet gangrene of the foot: Reviewed plan for surgery with the patient and her . All in agreement to proceed. The DNR/DNI status will be rescinded for the surgery. The patient and patient's is aware of anesthetic complications may require further resuscitation. They are agreeable to allow that if it means meaningful recovery. The patient's was available by cell phone today and is here today in person. Informed consent was reviewed and confirmed for a left below-knee amputation. Heparin has been held. Aspirin and Plavix will be continued. Plan for at least 2 to 3-day stay to monitor blood loss and drain output. Should continue antibiotics postoperatively. (2) Decubitus ulcer of left heel: Subjective Reports no changes. Understanding of need for amputation due to infection Review of Systems All systems reviewed & are unremarkable except as noted in HPI & below. Physical Exam LLE: dressing c/d/i. LT sensation grossly intact. Constitutional WD/WN, vitals as above no acute distress and not intoxicated appearing Respiratory normal respiratory effort; no labored breathing Cardiovascular Extremities: normal capillary refill Results & Data Results & Data Laboratory Results . H & H 10/18/20 10/19/20 10/20/20 Range/Units 14:25 05:43 04:44 Hgb 13.5 11.2 L 10.8 L (12.0-16.0) g/dL Hct 39.3 32.7 L 30.7 L (37-47) % 10/21/20 10/22/20 10/23/20 Range/Units 04:13 08:00 07:30 Hgb 10.0 L 9.9 L 9.9 L (12.0-16.0) g/dL Hct 28.8 L 29.5 L 29.7 L (37-47) % 10/24/20 10/25/20 Range/Units 06:52 07:03 Hgb 9.8 L 9.9 L (12.0-16.0) g/dL Hct 29.8 L 29.6 L (37-47) % Coagulation 10/18/20 Range/Units 14:25 INR 1.1 (0.9-1.1) Diagnostic Findings . PG Care Time/CCT Total # of Minutes Spent Total Time Spent with Patient: Total time spent is greater than 50% in coordination of care (as documented) at patient's floor/unit and/or counseling patient: Coding Level of Care Code 85675 Subseq Hosp Care Lvl 3 Diagnoses Diabetic wet gangrene of the foot E11.52 Decubitus ulcer of left heel L89.629
[2020-10-25] MEDS ORDERED: ceFAZolin 2000MG 2,000 MG/15 ML SYR IV ONE ×2 (14:57→19:00)
[2020-10-25] MEDS: LACTATED RINGER'S 1,000 ML IV SCH (15:05)
[2020-10-25] MEDS ORDERED: ceFAZolin 2,000 MG/15 ML IV PUSH IV ONE (15:09)
[2020-10-25] MEDS ORDERED: HYDROmorphone INJ 2 MG/ML SYR/VIAL ONE (16:53)
[2020-10-25] MEDS ORDERED: VANCOMYCIN HCL 1000MG/20ML VIAL ONE (17:13)
--- NOTE | 2020-10-25 18:42 | Operative Report ---
PG Post Operative Report Pre & Post Diagnosis Operation Date: 10/25/20 07:00 Pre-Op Diagnosis: Diabetic wet gangrene of the left foot Post-Op Diagnosis: Diabetic wet gangrene of the left foot I identified the patient and participated in the time-out.: Yes Procedure Operation Date: 10/25/20 07:00 Actual Procedures p Left through Knee Amputation(Left) - Luis A Vieira MD Surgeon Luis A Vieira MD [employer] Doron Youssef PA-C Estimated Blood Loss 50 Findings See Below The wound of the Achilles track deep to the calcaneus where there was soft and proximal calcaneal bone which was excised for culture. Deep swab from the posterior ankle was obtained. Purulent and necrotic gastrocnemius was found tracking to the proximal portion of the medial head. The posterior tibial periosteum was involved. Given the more proximal involvement, it was determined that a through knee amputation will be the lowest possible level. Posterior gastroc fascia was used as a flap for approximation over the condyles to the quadricep tendon remnant. Specimens Through knee amputation residual tissue Tissue for culture from the calcaneus Swab culture from deep heel wound Drains 10 [place] OZZY round Anesthesia Type General Regional Complications none Disposition Accompanied Patient To Recovery: Yes Disposition: Recovery Room Indications 50-year-old nonambulatory female with post stroke syndrome, diabetes and admitted for DKA who developed a decubitus ulcer at home, resulting in full- thickness and infected wound over the Achilles with exposed tissue. She was managed with wound care and antibiotics however remained persistently and leukocytosis and with a purulent wound. After much discussion with the patient and her family when she became more lucid with resuscitation, it was recommended to undergo below-knee amputation with a potential for a higher level if the infection and soft tissues warranted. Description of Procedure On the day of surgery, the patient was greeted in the preoperative holding area. The informed consent was reviewed and confirmed by myself and the patient. The patient identified the surgical site and was marked by me. The patient was then turned over to anesthesia. Anesthesia performed a regional anesthetic block with excellent effect. Patient was then taken to the operating place upon the OR table and anesthesia was induced. The airway was secured. A 3 blanket bump was placed under his ipsilateral hip. All bony prominences well-padded. A nonsterile tourniquet placed on the operative thigh. The extremity then prepped and draped in usual sterile fashion for ankle fracture surgery. Surgical timeout was called by the circulating nurse and verified all present. Antibiotics had been infused and equipment was available and functional. Adequate fluoroscopic views were available. We approached the posterior heel cord wound first. Soft tissue dissection was carried out bluntly and a rongeur was used to excise some of the calcaneal bone for culture. A deep swab culture was taken to the posterior ankle. The stockinette was then applied and secured by Coban to close off the wound. Another U drape was applied to resterilized the field. Removed all her gloves and the used instruments from the field. Then proceeded to plan out the below- knee amputation. Surgery was initiated by exsanguinating the extremity with the Esmarch bandage and inflating the tourniquet to 250 mmHg. Total tourniquet time was less than 2 hours. A transverse anterior tibial wound was made. This was carried down for the posterior flap longitudinal and medial lateral side. We encountered the periosteum using Bovie electrocautery. Opening the deep posterior compartment build significant purulent material. We opened this compartment completely and began irrigating removing the purulent material and necrotic soleus. We explored more proximally it was determined this involved most of the gastroc head. The anterior compartment is dissected and we got control of the anterior and posterior vessels on either side of interosseous membrane. Both tibia and fibular cuts was made to expose the neurovascular bundles. 0 silk ties were used to tie off these vessels in the posterior compartments were transected down the plane. This revealed the superficial posterior compartment and appeared to be excessively necrotic and have that additional purulent material along the muscle fascia. This was thoroughly irrigated once again. We redraped once again. The medial side was extended and it appeared that the purulent material tracked along the gastroc to the level of the metaphyseal flare. The periosteum of the posterior tibia seem to be involved. At this point, I opted for a through knee amputation. Transverse vision was planned out and made over the patella. There is carried out deeply along the medial lateral retinacula to excise the patella and flap it distally. Electrocautery was used to carry these fascial incisions down to the side of the condyles to expose the entirety of the joint. The cruciate ligaments were released. Soft tissue was released from the posterior aspect of the femur. The plane deep to the gastroc fascia was explored and released to allow removal of the residual limb. The tibial artery vein and nerve were then exposed in the posterior condylar area. Hemostats were placed on each individual structure to allow slight traction. 0 silk ties were made x2 on both the artery and vein. The tibial nerve was controlled, placed on traction and excised to allow retraction. We then thoroughly irrigated the residual tissues and posterior flap. The flap was then shortened to allow more healthy skin to a length and allowed appropriate coverage of the condyles for a through knee amputation. Tourniquet was let down. Appropriate hemostasis was achieved. The vascular ties were holding. Bovie electrocautery was used on the subcutaneous vessels that were bleeding. The muscle tissue also required some Bovie electrocautery hemostasis. Once we had healthy tissues that were thoroughly irrigated and hemostased, we planned our closure. The posterior gastroc fascial flap was provisionally approximated. We then took this down and then placed vancomycin powder of 1 g throughout the wound bed. Drain was cut for length and placed at the superior lateral thigh. It was then routed under the muscle/fascial flap along the condyle. The myodesis was then completed using 0 PDS suture with a buried knot connecting the posterior flap to the residual extensor mechanism. Complete closure of this flap was performed for the myodesis. We then proceeded to use 0 Vicryl suture to reapproximate the deep subcutaneous tissues of the skin. 3-0 Monocryl suture was used in the dermal layer to lightly approximate with good spacing. Finally, 2-0 nylon suture was used for this final skin closure in a vertical mattress fashion. There was appropriate tension on the closure. Is acceptable myodesis with complete bone coverage. The drain maintained its seal. The wounds were dressed with sterile Xeroform, sterile gauze, ABD and contained by web roll dressing, followed by a posterior sled splint using Ortho-Glass, contained by a flex master Harry wrap. Patient tolerated procedure well, was extubated the operative without complication, and transferred to the recovery area in stable condition. Disposition: She will remain as an inpatient and undergo 24 hours of gram- positive antibiotic perioperative prophylaxis. She should continue her ceftriaxone coverage for her wound. She will need at least 6 weeks of appropriate soft tissue coverage for a deep space infection. She is on aspirin and Plavix at baseline which will cover for DVTs appropriately. She is not ambulatory. The limb is stable for transfers with caution. We will plan to take down the dressings on postop day 2 and likely remove the drain at that time. Physician office assistant receptionist attestation: Doron Youssef PA-C was present and scrubbed for the duration of the case. He was essential to prepping/draping, patient positioning, retraction, and assistance with wound closure. I attest to the content of the Intraoperative Record and any orders documented therein. Any exceptions are noted below.
--- NOTE | 2020-10-25 19:12 | Anesthesiology Progress Note ---
Date of Service October 25, 2020 Anesthesia Post Procedure Vital Signs Vital Signs: Temp Pulse Pulse Pulse Pulse Resp BP 10/25/20 19:05 101 H 14 10/25/20 18:55 98 H 16 136/83 10/25/20 18:45 99 H 10 L 143/85 H 10/25/20 18:38 100.2 F H 100 H 24 155/92 H 10/25/20 14:52 99.9 F H 94 H 20 10/25/20 14:20 86 10/25/20 11:37 98.6 F 83 18 10/25/20 08:04 98.2 F 87 18 10/25/20 07:00 79 10/25/20 04:00 98.6 F 83 18 10/24/20 23:34 84 10/24/20 22:50 98.6 F 83 18 10/24/20 19:35 97.9 F 99 H 20 BP Pulse Ox 10/25/20 19:05 143/84 H 93 10/25/20 18:55 94 10/25/20 18:45 98 10/25/20 18:38 98 10/25/20 14:52 155/87 H 98 10/25/20 14:20 10/25/20 11:37 131/79 98 10/25/20 08:04 113/71 96 10/25/20 07:00 10/25/20 04:00 127/81 98 10/24/20 23:34 10/24/20 22:50 109/56 L 93 10/24/20 19:35 133/75 97 Transfer of Care Handoff Completed per policy Notes Mental Status: alert / awake / arousable and participated in evaluation Patient Amnestic to Procedure: Yes Nausea / Vomiting: adequately controlled Pain: adequately controlled Airway Patency, RR, SpO2: stable & adequate BP & HR: stable & adequate Hydration State: stable & adequate Anesthetic Complications: no major complications apparent and Pt Satisfied with anesthetic care
[2020-10-25] MEDS: cefTRIAXone SODIUM 2,000 MG in DEXTROSE 5% 50 ML IV SCH (22:46)
[2020-10-26] MEDS: INSULIN ASPART 100 UNITS/ML 3 ML PEN SC SCH ×6 (00:27→20:56)
[2020-10-26] MEDS: MoRPHine SULFATE 2 MG/ML CARP IV PRN (03:05)
[2020-10-26] MEDS: ACETAMINOPHEN 500 MG TAB PO SCH ×3 (05:32→20:55)
[2020-10-26] MEDS: oxyCODONE HCL IR 5 MG TAB (IMMEDIATE RELEASE) PO PRN ×2 (06:30→13:14)
[2020-10-26] MEDS: HEPARIN SOD 5,000 UNIT/0.5 ML VIAL SQ SCH ×2 (07:43→20:56)
[2020-10-26] MEDS: lisinopril 20 MG TAB PO SCH (07:45)
[2020-10-26] MEDS: METOPROLOL SUCC 50MG EXT REL TAB PO SCH (07:45)
[2020-10-26] MEDS: ATORVASTATIN 40 MG TAB PO SCH (07:46)
[2020-10-26] MEDS: CLOPIDOGREL BISULFATE 75 MG TAB PO SCH (07:46)
[2020-10-26] MEDS: ASPIRIN 81 MG ECTAB PO SCH (07:46)
[2020-10-26] MEDS: valACYclovir HCL 500 MG TABLET PO SCH ×3 (07:47→20:56)
[2020-10-26 08:08] LABS: BUN Creatinine Ratio 22.1 (10-20); Basophils # (auto) 0.01 K/uL (0-0.2); Est GFR (African American) 141.9 ml/min; Est GFR (Non-African American) 122.5 ml/min; Hematocrit (blood only) 29.7 % (37-47); Hemoglobin 9.6 g/dL (12.0-16.0); Immature Granulocytes # (auto) 0.18 K/uL (0.00-0.02); Immature Granulocytes % (auto) 0.8 %; Lymphocytes # (auto) 2.13 K/uL (1.2-3.4); Mean Corpuscular Hemoglobin 29.7 pg (25-34); Mean Corpuscular Hgb Conc 32.3 g/dL (32-36); Mean Platelet Volume 8.3 fL (7.4-10.4); Monocytes # (auto) 2.54 K/uL (0.11-0.59); Monocytes % (auto) 10.7 %; Neutrophils % (auto) 79.5 %; Platelet Count 438 K/uL (130-400); Potassium 3.9 mmol/L (3.5-5.1); RDW Coefficient of Variation 13.5 % (11.5-14.5); RDW Standard Deviation 45.3 fL (36.4-46.3); Red Blood Count 3.23 M/uL (4.2-5.4); White Blood Count 23.66 K/uL (4.8-10.8)
[2020-10-26] MEDS: INSULIN GLARGINE SOLOSTAR 100 UNITS/ML 3 ML PEN SC SCH (10:12)
--- NOTE | 2020-10-26 11:23 | Hospitalist Progress Note ---
Date of Service October 26, 2020 Assessment & Plan (1) Diabetic wet gangrene of the foot: Plan: CT showing soft tissue ulcer of the dorsal hindfoot with subcutaneous emphysema and cellulitis changes, as well as cortical irregularity with associated lucencies of the dorsal aspect of the posterior calcaneus compatible with osteomyelitis. Ceftriaxone per sensitivities of wound culture growing providencia rettgeri, treatment since 10/18. Ortho consulted following recs, mahan rgery performed 10/25/20. Consulted wound care appreciate recs. Febrile overnight on 10/23/20, blood cultures re-drawn, NGTD 10/25/20. -ordered wound cultures 10/25/20 -on ceftriaxone and lactate ringers -monitor CBC, BMP, current WBC 23.66 (from 20.13) (2) Sepsis: Plan: see above (3) Decubitus ulcer of left heel: Plan: see above (4) DKA (diabetic ketoacidosis): Plan: A1C 12.9 on 10/19 indicating poory controlled DM. 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 Needs education regarding DM management. Outpt Regimen: novolog achs, Lantus 50 units, BID Metformin BID. Glycemic CX placed following recs - current blood glucose 197 (5) Cellulitis: Plan: resolved (6) Acute metabolic encephalopathy: Plan: resolved Plan: (7) Stroke: - Hx significant chronic R MCA stroke - Continue home statin, aspirin and clopidogrel (8) HTN/HLD - continue home lisinopril, metoprolol, and statin (9) Varicella zoster (back): - valacyclovir QID for 7 days (10/20 - 10/27) Admission and Anticipated Discharge Date Admission Date: October 18, 2020 Supervising Physician Co-Signing Physician Notes Attending attestation Pt seen and examined in concert with Dr. Sky. In agreement with the documented findings as noted in the resident documentation with any exceptions or additions as noted here. Difficulty sleeping 2/2 evaluations interrupting sleep but tolerating LLE postop pain well /10 which is improved w/ medication. Nonradiating. On examination, S1/S2 nl RRR no MCG. Clear to auscultation bilaterally. Abd NT/ND BS+ve. LLE wound dressing C/D/I, Right foot w/ heel pad in place in waffle boot Heel ulcer osteomyelitis - ortho, wound care consult - POD #1 - continue ongoing IV mgmt. Ortho recommendations appreciated. Pain control with morphine IV 2mg q4P Sepsis 2/2 osteomyelitis - continue ceftriaxone with course as rec'd by ortho Type 2 diabetes, uncontrolled - A1c 12.9 - basal/bolus insulin per glycemic mgmt protocol h/o CVA - continue statin, DAPT to resume postoperatively Else see resident documentation as noted. Subjective 50yo F admitted to hospital for AMS, DKA, and osteomyelitis of left foot. 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 Patient seen at bedside today, good appetite, did not sleep well due to too many visits, has some pain currently managed with tylenol. She wants to know when she can go home. Review of Systems Constitutional: no fever and no chills Ear, Nose, Mouth, Throat: no ear pain, no hearing loss, no dizziness, no change in voice and no dysphagia Respiratory: no cough and no dyspnea Cardiovascular: no chest pain and no palpitations Gastrointestinal: no abdominal pain, no nausea, no vomiting, no constipation and no diarrhea/loose stools Musculoskeletal: no swelling Integumentary: no rash Physical Exam Constitutional: + morbidly obese, cooperative and comfortable Eyes: PERRL, conjunctivae normal, anicteric sclerae Respiratory: normal respiratory effort, lungs clear to auscultation normal respiratory effort Auscultation: lungs clear to auscultation bilaterally Cardiovascular: RRR, no murmur, no edema Heart Sounds: normal S1 and normal S2 Extremities: no edema Gastrointestinal (Abdomen): normal bowel sounds, soft, nontender, no hepatosplenomegaly Skin: no rashes Results & Data Results & Data ([facility]) Vital Signs (Past 12 Hours) Vital Signs Temp Pulse Pulse Resp BP Pulse Ox 10/26/20 10:56 36.8 C 101 H 16 160/87 H 95 10/26/20 08:00 114 H 10/26/20 07:00 36.7 C 113 H 16 171/93 H 97 10/26/20 05:14 87 10/26/20 04:00 36.7 C 95 H 20 167/93 H 99 Laboratory Results 10/26/20 10/26/2021 Range/Units 16:25 11:29 07:43 WBC (4.8-10.8) K/uL RBC (4.2-5.4) M/uL Hgb (12.0-16.0) g/dL Hct (37-47) % MCV (80-100) fL MCH (25-34) pg MCHC (32-36) g/dL RDW Std Deviation (36.4-46.3) fL RDW Coeff of Travis (11.5-14.5) % Plt Count (130-400) K/uL MPV (7.4-10.4) fL Immature Gran % (Auto) % Neut % (Auto) % Lymph % (Auto) % Coles % (Auto) % Eos % (Auto) % Baso % (Auto) % Neut # (Auto) (1.4-6.5) K/uL Lymph # (Auto) (1.2-3.4) K/uL Coles # (Auto) (0.11-0.59) K/uL Eos # (Auto) (0-0.5) K/uL Baso # (Auto) (0-0.2) K/uL Immature Gran # (Auto) (0.00-0.02) K/uL Sodium (136-145) mmol/L Potassium (3.5-5.1) mmol/L Chloride (98-107) mmol/L Carbon Dioxide (21-32) mmol/L Anion Gap (3-11) BUN (7-18) mg/dl Creatinine (0.6-1.2) mg/dl Est Cr Clr Drug Dosing ml/min Est GFR ( Amer) ml/min Est GFR (Non-Af Amer) ml/min BUN/Creatinine Ratio (10-20) Glucose (70-99) mg/dl POC Glucose 119 H 214 H 219 H (70-99) mg/dl Calcium (8.5-10.1) mg/dl 10/26/20 10/26/20 10/26/20 Range/Units 06:59 06:59 04:57 WBC 23.66 H (4.8-10.8) K/uL RBC 3.23 L (4.2-5.4) M/uL Hgb 9.6 L (12.0-16.0) g/dL Hct 29.7 L (37-47) % MCV 92.0 (80-100) fL MCH 29.7 (25-34) pg MCHC 32.3 (32-36) g/dL RDW Std Deviation 45.3 (36.4-46.3) fL RDW Coeff of Travis 13.5 (11.5-14.5) % Plt Count 438 H (130-400) K/uL MPV 8.3 (7.4-10.4) fL Immature Gran % (Auto) 0.8 % Neut % (Auto) 79.5 % Lymph % (Auto) 9.0 % Coles % (Auto) 10.7 % Eos % (Auto) 0.0 % Baso % (Auto) 0.0 % Neut # (Auto) 18.80 H (1.4-6.5) K/uL Lymph # (Auto) 2.13 (1.2-3.4) K/uL Coles # (Auto) 2.54 H (0.11-0.59) K/uL Eos # (Auto) 0.00 (0-0.5) K/uL Baso # (Auto) 0.01 (0-0.2) K/uL Immature Gran # (Auto) 0.18 H (0.00-0.02) K/uL Sodium 129 L (136-145) mmol/L Potassium 3.9 (3.5-5.1) mmol/L Chloride 96 L (98-107) mmol/L Carbon Dioxide 25 (21-32) mmol/L Anion Gap 9.0 (3-11) BUN 9 (7-18) mg/dl Creatinine 0.39 L (0.6-1.2) mg/dl Est Cr Clr Drug Dosing 143.0 ml/min Est GFR ( Amer) 141.9 ml/min Est GFR (Non-Af Amer) 122.5 ml/min BUN/Creatinine Ratio 22.1 H (10-20) Glucose 197 H (70-99) mg/dl POC Glucose 197 H (70-99) mg/dl Calcium 9.0 (8.5-10.1) mg/dl 10/26/20 10/25/20 10/25/20 Range/Units 00:23 20:09 18:42 WBC (4.8-10.8) K/uL RBC (4.2-5.4) M/uL Hgb (12.0-16.0) g/dL Hct (37-47) % MCV (80-100) fL MCH (25-34) pg MCHC (32-36) g/dL RDW Std Deviation (36.4-46.3) fL RDW Coeff of Travis (11.5-14.5) % Plt Count (130-400) K/uL MPV (7.4-10.4) fL Immature Gran % (Auto) % Neut % (Auto) % Lymph % (Auto) % Coles % (Auto) % Eos % (Auto) % Baso % (Auto) % Neut # (Auto) (1.4-6.5) K/uL Lymph # (Auto) (1.2-3.4) K/uL Coles # (Auto) (0.11-0.59) K/uL Eos # (Auto) (0-0.5) K/uL Baso # (Auto) (0-0.2) K/uL Immature Gran # (Auto) (0.00-0.02) K/uL Sodium (136-145) mmol/L Potassium (3.5-5.1) mmol/L Chloride (98-107) mmol/L Carbon Dioxide (21-32) mmol/L Anion Gap (3-11) BUN (7-18) mg/dl Creatinine (0.6-1.2) mg/dl Est Cr Clr Drug Dosing ml/min Est GFR ( Amer) ml/min Est GFR (Non-Af Amer) ml/min BUN/Creatinine Ratio (10-20) Glucose (70-99) mg/dl POC Glucose 130 H 131 H 142 H (70-99) mg/dl Calcium (8.5-10.1) mg/dl Medications Administered Current Inpatient Medications Acetaminophen (Acetaminophen 500 Mg Tab) 1,000 mg PO Q8H [facility] Stop: 11/21/20 20:59 Last Admin: 10/26/20 13:19 Dose: 1,000 mg Documented by: Aspirin (Aspirin 81 Mg Ectab) 81 mg PO DAILY [facility] Stop: 11/18/20 08:59 Last Admin: 10/26/20 07:46 Dose: 81 mg Documented by: Atorvastatin Calcium (Atorvastatin 40 Mg Tab) 40 mg PO DAILY [facility] Stop: 11/18/20 08:59 Last Admin: 10/26/20 07:46 Dose: 40 mg Documented by: Clopidogrel Bisulfate (Clopidogrel Bisulfate 75 Mg Tab) 75 mg PO DAILY [facility] Stop: 11/18/20 08:59 Last Admin: 10/26/20 07:46 Dose: 75 mg Documented by: Dextrose (Dextrose 50% 50 Ml Syringe) 25 - 50 ml IV UD PRN; Protocol PRN Reason: Hypoglycemia Protocol Stop: 11/17/20 23:14 Glucagon (Glucagon For Inj 1 Mg Vial) 1 mg IM UD PRN; Protocol PRN Reason: Hypoglycemia Protocol Stop: 11/17/20 23:14 Glucose (Glucose 40% Gel 15 Gm Tube) 15 - 30 gm PO UD PRN; Protocol PRN Reason: Hypoglycemia Protocol Stop: 11/17/20 23:14 Glucose (Glucose 10 Tabs/Tube) 4 - 8 tabs PO UD PRN; Protocol PRN Reason: Hypoglycemia Protocol Stop: 11/17/20 23:14 Heparin Sodium (Porcine) (Heparin Sod 5,000 Unit/0.5 Ml Vial) 5,000 units SQ Q12 [facility] Stop: 11/18/20 20:59 Last Admin: 10/26/20 07:43 Dose: 5,000 units Documented by: Ceftriaxone Sodium 2,000 mg/ (Dextrose) 70 mls @ 140 mls/hr IV TODAY@2200 [facility] Stop: 10/26/20 23:59 Last Infusion: 10/25/20 23:47 Dose: Infused Documented by: Lactated Ringer's (Lr) 1,000 mls @ 15 mls/hr IV .Q24H [facility] Stop: 11/24/20 15:29 Last Admin: 10/26/20 17:09 Dose: 15 mls/hr Documented by: Insulin Aspart (Insulin Aspart 100 Units/Ml 3 Ml Pen) 0 units SC ACHS [facility]; Protocol Stop: 11/22/20 16:29 Last Admin: 10/26/20 17:34 Dose: 15 units Documented by: Insulin Glargine (Insulin Glargine Solostar 100 Units/Ml 3 Ml Pen) 0 units SC DAILY [facility]; Protocol Stop: 11/25/20 08:59 Last Admin: 10/26/20 10:12 Dose: 65 units Documented by: Ketorolac Tromethamine (Ketorolac Tromethamine 10 Mg Tablet) 10 mg PO Q6H PRN PRN Reason: moderate pain Stop: 10/27/20 20:35 Lisinopril (Lisinopril 20 Mg Tab) 20 mg PO DAILY [facility] Stop: 11/18/20 08:59 Last Admin: 10/26/20 07:45 Dose: 20 mg Documented by: Metoprolol Succinate (Metoprolol Succ 50mg Ext Rel Tab) 50 mg PO DAILY [facility] Stop: 11/18/20 08:59 Last Admin: 10/26/20 07:45 Dose: 50 mg Documented by: Metoprolol Tartrate (Metoprolol Tartrate 1 Mg/Ml Vial) 2.5 mg IV Q6 PRN PRN Reason: SBP > 160 Stop: 11/18/20 11:59 Last Admin: 10/20/20 03:18 Dose: 2.5 mg Documented by: Miscellaneous (Carbohydrates For Hypoglycemia ) 15 - 30 gm PO PRN PRN PRN Reason: Hypoglycemia Treatment Stop: 11/17/20 23:14 Miscellaneous Information (Pharmacy Glycemic Mgmt Consult) 1 ea N/A UD PRN PRN Reason: Consult Stop: 11/18/20 01:08 Morphine Sulfate (Morphine Sulfate 2 Mg/Ml Carp) 2 mg IV Q4H PRN PRN Reason: severe pain, pre-turning Stop: 11/02/20 08:56 Last Admin: 10/26/20 03:05 Dose: 2 mg Documented by: Nystatin (Nystatin Powder 15gm Btl) 1 appln EXT BID PRN PRN Reason: Affected Skin Folds Stop: 11/18/20 02:18 Oxycodone HCl (Oxycodone Hcl Ir 5 Mg Tab (Immediate Release)) 5 mg PO Q4H PRN PRN Reason: MODERATE Pain (4,5,6) & Pre PT Stop: 11/08/20 18:29 Last Admin: 10/26/20 13:14 Dose: 5 mg Documented by: Oxycodone HCl (Oxycodone Hcl Ir 5 Mg Tab (Immediate Release)) 10 mg PO Q4H PRN PRN Reason: SEVERE Pain (7,8,9,10) Stop: 11/08/20 18:29 Last Admin: 10/26/20 06:30 Dose: 10 mg Documented by: Valacyclovir HCl (Valacyclovir Hcl 500 Mg Tablet) 1,000 mg PO TID [facility] Stop: 10/27/20 09:59 Last Admin: 10/26/20 14:43 Dose: 1,000 mg Documented by: Resident Activity Tracking Resident Involvement: Resident Care Provided Care Provided: Adult Hospital Medicine (1) DKA (diabetic ketoacidosis) Diabetes mellitus complication detail: without coma Diabetes mellitus type: other specified (including SALO) Qualified Code(s): E13.10 - Other specified diabetes mellitus with ketoacidosis without coma (2) Sepsis Sepsis acute organ dysfunction status: with acute organ dysfunction Sepsis type: sepsis due to unspecified organism Severe sepsis acute organ dysfunction type: encephalopathy Severe sepsis shock status: without septic shock Qualified Code(s): A41.9 - Sepsis, unspecified organism; R65.20 - Severe sepsis without septic shock; G93.40 - Encephalopathy, unspecified
[2020-10-26] MEDS: LACTATED RINGER'S 1,000 ML IV SCH (17:09)
--- NOTE | 2020-10-26 17:57 | Orthopedic Progress Note ---
Date of Service October 26, 2020 Assessment & Plan (1) Status post amputation of leg: POD1 uncomplicated progress - Continue abx coverage. Will need 6 weeks abx coverage. Consider transition to oral when WBC decreases. Follow tissue culture from 10/25 - Dressing: ortho will take down on POD2 - Monitor/record drain output - VTE ppx: per primary, chronic ASA + Plavix - Pain control per primary Subjective Pain is 'so-so'. No other questions. States that she understands amputation went thru the knee to get healthy noninfected tissue. No other questions Review of Systems All systems reviewed & are unremarkable except as noted in HPI & below. Physical Exam LLE: Dressing c/d/i. OZZY drain functional Constitutional WD/WN, vitals as above no acute distress and not intoxicated appearing Respiratory normal respiratory effort; no labored breathing Cardiovascular Extremities: normal capillary refill Results & Data Results & Data Laboratory Results . Diagnostic Findings Laboratory Tests 10/26/20 06:59 WBC 23.66 H Hgb 9.6 L Hct 29.7 L Neut # (Auto) 18.80 H PG Care Time/CCT Total # of Minutes Spent Total Time Spent with Patient: Total time spent is greater than 50% in coordination of care (as documented) at patient's floor/unit and/or counseling patient: Coding Level of Care Code 14586 Post Operative Follow-Up Diagnoses Status post amputation of leg Z89.619
[2020-10-26] MEDS: cefTRIAXone SODIUM 2,000 MG in DEXTROSE 5% 50 ML IV SCH (21:55)
[2020-10-27] MEDS: KETOROLAC TROMETHAMINE 10 MG TABLET PO PRN ×2 (05:38→12:03)
[2020-10-27] MEDS: ACETAMINOPHEN 500 MG TAB PO SCH ×3 (05:40→21:40)
--- NOTE | 2020-10-27 07:42 | Hospitalist Progress Note ---
Date of Service October 27, 2020 Assessment & Plan (1) Diabetic wet gangrene of the foot: Plan: CT showing soft tissue ulcer of the dorsal hindfoot with subcutaneous emphysema and cellulitis changes, as well as cortical irregularity with associated lucencies of the dorsal aspect of the posterior calcaneus compatible with osteomyelitis. Ceftriaxone per sensitivities of wound culture growing providencia rettgeri, treatment since 10/18. Ortho consulted following recs, mahan rgery performed 10/25/20. Consulted wound care appreciate recs. Febrile overnight on 10/23/20, blood cultures re-drawn, NGTD 10/25/20. Ordered wound cultures 10/25/20 currently gram negative enterococcus awaiting specificity and sensitivity. -on ceftriaxone, order ended today and was restarted, will remain on ceftriaxone until WBC decreases further -monitor CBC, BMP, current WBC 21.97 (from 23.66) -on aceteminophen and ketorolac PRN for pain -heparin, aspirin plavix for anticoagulation (2) Sepsis: Plan: see above (3) Decubitus ulcer of left heel: Plan: see above (4) DKA (diabetic ketoacidosis): Plan: A1C 12.9 on 10/19 indicating poory controlled DM. 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 Needs education regarding DM management. Outpt Regimen: novolog achs, Lantus 50 units, BID Metformin BID. Glycemic CX placed following recs - current blood glucose 184 (5) Cellulitis: Plan: resolved (6) Acute metabolic encephalopathy: Plan: resolved Plan: (7) Stroke: - Hx significant chronic R MCA stroke - Continue home statin, aspirin and clopidogrel (8) HTN/HLD - continue home lisinopril, metoprolol, and statin (9) Varicella zoster (back): - valacyclovir QID for 7 days (10/20 - 10/27) Admission and Anticipated Discharge Date Admission Date: October 18, 2020 Supervising Physician Co-Signing Physician Notes Attending attestation Pt seen and examined in concert with Dr. Sky. In agreement with the documented findings as noted in the resident documentation with any exceptions or additions as noted here. Considerable improvement in pain control and fatigue. Eager for discharge - explained need for diminished WBC, culture results On examination, S1/S2 nl RRR no MCG. Clear to auscultation bilaterally. Abd NT/ND BS+ve. LLE wound dressing C/D/I, Right foot w/ heel pad in place in shaista loya Heel ulcer osteomyelitis - ortho, wound care consult - POD #2 - continue ongoing IV mgmt. Ortho recommendations appreciated. Pain control with morphine IV 2mg q4P Sepsis 2/2 osteomyelitis - Cx w/ concern for enterococcus - will broaden w/ dapto until C/S, monitor CBC as WBC remains > 20. Type 2 diabetes, uncontrolled - A1c 12.9 - basal/bolus insulin per glycemic mgmt protocol h/o CVA - continue statin, DAPT Else see resident documentation as noted. Subjective 50yo Female here for heel ulcer osteomyelitis had BKA 10/25/20 currently day 2 postop. Ortho is following, they want to transition to oral abx once WBC go down and will remove wound dressing today. Patient was seen at bedside, comfortable, slept ate well voiding normally currently feeling very floaty. No acute events overnight. PMH: HTN, HLD, IDDM, PVD, CVA Review of Systems Constitutional: no fever and no chills Ear, Nose, Mouth, Throat: no ear pain, no hearing loss, no dizziness, no change in voice and no dysphagia Respiratory: no cough and no dyspnea Cardiovascular: no chest pain and no palpitations Gastrointestinal: no abdominal pain, no nausea, no vomiting, no constipation and no diarrhea/loose stools Musculoskeletal: no swelling Integumentary: no rash Physical Exam Constitutional: cooperative and comfortable Eyes: PERRL, conjunctivae normal, anicteric sclerae Respiratory: normal respiratory effort, lungs clear to auscultation normal respiratory effort Auscultation: lungs clear to auscultation bilaterally Cardiovascular: RRR, no murmur, no edema Heart Sounds: normal S1 and normal S2 Extremities: no edema Gastrointestinal (Abdomen): normal bowel sounds, soft, nontender, no hepatosplenomegaly Results & Data Results & Data ([facility]) Vital Signs (Past 12 Hours) Vital Signs Temp Pulse Pulse Resp BP Pulse Ox 10/27/20 07:37 36.7 C 103 H 16 164/85 H 97 10/27/20 03:57 36.7 C 95 H 18 145/78 H 98 10/27/20 00:00 93 H 10/26/20 23:39 36.9 C 94 H 18 118/82 96 10/26/20 19:44 36.3 C L 95 H 18 122/78 98 Laboratory Results 10/27/20 10/27/20 10/27/20 Range/Units 11:15 08:14 08:14 WBC 21.97 H (4.8-10.8) K/uL RBC 2.93 L (4.2-5.4) M/uL Hgb 8.8 L (12.0-16.0) g/dL Hct 27.0 L (37-47) % MCV 92.2 (80-100) fL MCH 30.0 (25-34) pg MCHC 32.6 (32-36) g/dL RDW Std Deviation 45.3 (36.4-46.3) fL RDW Coeff of Travis 13.6 (11.5-14.5) % Plt Count 445 H (130-400) K/uL MPV 7.9 (7.4-10.4) fL Immature Gran % (Auto) 0.6 % Neut % (Auto) 74.2 % Lymph % (Auto) 12.3 % Blanco % (Auto) 12.7 % Eos % (Auto) 0.2 % Baso % (Auto) 0.0 % Neut # (Auto) 16.28 H (1.4-6.5) K/uL Lymph # (Auto) 2.70 (1.2-3.4) K/uL Blanco # (Auto) 2.80 H (0.11-0.59) K/uL Eos # (Auto) 0.04 (0-0.5) K/uL Baso # (Auto) 0.01 (0-0.2) K/uL Immature Gran # (Auto) 0.14 H (0.00-0.02) K/uL Sodium 134 L (136-145) mmol/L Potassium 3.7 (3.5-5.1) mmol/L Chloride 101 (98-107) mmol/L Carbon Dioxide 27 (21-32) mmol/L Anion Gap 7.0 (3-11) BUN 8 (7-18) mg/dl Creatinine 0.37 L (0.6-1.2) mg/dl Est Cr Clr Drug Dosing 150.1 ml/min Est GFR ( Amer) 144.4 ml/min Est GFR (Non-Af Amer) 124.6 ml/min BUN/Creatinine Ratio 21.9 H (10-20) Glucose 184 H (70-99) mg/dl POC Glucose 256 H (70-99) mg/dl Calcium 9.4 (8.5-10.1) mg/dl 10/27/20 10/26/20 10/26/20 Range/Units 07:27 20:01 16:25 WBC (4.8-10.8) K/uL RBC (4.2-5.4) M/uL Hgb (12.0-16.0) g/dL Hct (37-47) % MCV (80-100) fL MCH (25-34) pg MCHC (32-36) g/dL RDW Std Deviation (36.4-46.3) fL RDW Coeff of Travis (11.5-14.5) % Plt Count (130-400) K/uL MPV (7.4-10.4) fL Immature Gran % (Auto) % Neut % (Auto) % Lymph % (Auto) % Blanco % (Auto) % Eos % (Auto) % Baso % (Auto) % Neut # (Auto) (1.4-6.5) K/uL Lymph # (Auto) (1.2-3.4) K/uL Blanco # (Auto) (0.11-0.59) K/uL Eos # (Auto) (0-0.5) K/uL Baso # (Auto) (0-0.2) K/uL Immature Gran # (Auto) (0.00-0.02) K/uL Sodium (136-145) mmol/L Potassium (3.5-5.1) mmol/L Chloride (98-107) mmol/L Carbon Dioxide (21-32) mmol/L Anion Gap (3-11) BUN (7-18) mg/dl Creatinine (0.6-1.2) mg/dl Est Cr Clr Drug Dosing ml/min Est GFR ( Amer) ml/min Est GFR (Non-Af Amer) ml/min BUN/Creatinine Ratio (10-20) Glucose (70-99) mg/dl POC Glucose 183 H 96 119 H (70-99) mg/dl Calcium (8.5-10.1) mg/dl Medications Administered Current Inpatient Medications Acetaminophen (Acetaminophen 500 Mg Tab) 1,000 mg PO Q8H [facility] Stop: 11/21/20 20:59 Last Admin: 10/27/20 05:40 Dose: Not Given Documented by: Aspirin (Aspirin 81 Mg Ectab) 81 mg PO DAILY [facility] Stop: 11/18/20 08:59 Last Admin: 10/27/20 09:57 Dose: 81 mg Documented by: Atorvastatin Calcium (Atorvastatin 40 Mg Tab) 40 mg PO DAILY [facility] Stop: 11/18/20 08:59 Last Admin: 10/27/20 09:57 Dose: 40 mg Documented by: Clopidogrel Bisulfate (Clopidogrel Bisulfate 75 Mg Tab) 75 mg PO DAILY [facility] Stop: 11/18/20 08:59 Last Admin: 10/27/20 09:57 Dose: 75 mg Documented by: Dextrose (Dextrose 50% 50 Ml Syringe) 25 - 50 ml IV UD PRN; Protocol PRN Reason: Hypoglycemia Protocol Stop: 11/17/20 23:14 Glucagon (Glucagon For Inj 1 Mg Vial) 1 mg IM UD PRN; Protocol PRN Reason: Hypoglycemia Protocol Stop: 11/17/20 23:14 Glucose (Glucose 40% Gel 15 Gm Tube) 15 - 30 gm PO UD PRN; Protocol PRN Reason: Hypoglycemia Protocol Stop: 11/17/20 23:14 Glucose (Glucose 10 Tabs/Tube) 4 - 8 tabs PO UD PRN; Protocol PRN Reason: Hypoglycemia Protocol Stop: 11/17/20 23:14 Heparin Sodium (Porcine) (Heparin Sod 5,000 Unit/0.5 Ml Vial) 5,000 units SQ Q12 [facility] Stop: 11/18/20 20:59 Last Admin: 10/27/20 09:58 Dose: 5,000 units Documented by: Ceftriaxone Sodium 2,000 mg/ (Dextrose) 70 mls @ 100 mls/hr IV Q24H [facility]; Protocol Stop: 12/02/20 21:59 Insulin Aspart (Insulin Aspart 100 Units/Ml 3 Ml Pen) 0 units SC ACHS [facility]; Protocol Stop: 11/22/20 16:29 Last Admin: 10/27/20 12:56 Dose: 19 units Documented by: Insulin Glargine (Insulin Glargine Solostar 100 Units/Ml 3 Ml Pen) 0 units SC DAILY [facility]; Protocol Stop: 11/25/20 08:59 Last Admin: 10/27/20 09:47 Dose: 65 units Documented by: Ketorolac Tromethamine (Ketorolac Tromethamine 10 Mg Tablet) 10 mg PO Q6H PRN PRN Reason: moderate pain Stop: 10/27/20 20:35 Last Admin: 10/27/20 12:03 Dose: 10 mg Documented by: Lisinopril (Lisinopril 20 Mg Tab) 20 mg PO DAILY [facility] Stop: 11/18/20 08:59 Last Admin: 10/27/20 09:56 Dose: 20 mg Documented by: Metoprolol Succinate (Metoprolol Succ 50mg Ext Rel Tab) 50 mg PO DAILY [facility] Stop: 11/18/20 08:59 Last Admin: 10/27/20 09:56 Dose: 50 mg Documented by: Metoprolol Tartrate (Metoprolol Tartrate 1 Mg/Ml Vial) 2.5 mg IV Q6 PRN PRN Reason: SBP > 160 Stop: 11/18/20 11:59 Last Admin: 10/20/20 03:18 Dose: 2.5 mg Documented by: Miscellaneous (Carbohydrates For Hypoglycemia ) 15 - 30 gm PO PRN PRN PRN Reason: Hypoglycemia Treatment Stop: 11/17/20 23:14 Miscellaneous Information (Pharmacy Glycemic Mgmt Consult) 1 ea N/A UD PRN PRN Reason: Consult Stop: 11/18/20 01:08 Morphine Sulfate (Morphine Sulfate 2 Mg/Ml Carp) 2 mg IV Q4H PRN PRN Reason: severe pain, pre-turning Stop: 11/02/20 08:56 Last Admin: 10/26/20 03:05 Dose: 2 mg Documented by: Nystatin (Nystatin Powder 15gm Btl) 1 appln EXT BID PRN PRN Reason: Affected Skin Folds Stop: 11/18/20 02:18 Oxycodone HCl (Oxycodone Hcl Ir 5 Mg Tab (Immediate Release)) 5 mg PO Q4H PRN PRN Reason: MODERATE Pain (4,5,6) & Pre PT Stop: 11/08/20 18:29 Last Admin: 10/26/20 13:14 Dose: 5 mg Documented by: Oxycodone HCl (Oxycodone Hcl Ir 5 Mg Tab (Immediate Release)) 10 mg PO Q4H PRN PRN Reason: SEVERE Pain (7,8,9,10) Stop: 11/08/20 18:29 Last Admin: 10/26/20 06:30 Dose: 10 mg Documented by: Resident Activity Tracking Resident Involvement: Resident Care Provided Care Provided: Adult Hospital Medicine (1) DKA (diabetic ketoacidosis) Diabetes mellitus complication detail: without coma Diabetes mellitus type: other specified (including SALO) Qualified Code(s): E13.10 - Other specified diabetes mellitus with ketoacidosis without coma (2) Sepsis Sepsis acute organ dysfunction status: with acute organ dysfunction Sepsis type: sepsis due to unspecified organism Severe sepsis acute organ dysfunction type: encephalopathy Severe sepsis shock status: without septic shock Qualified Code(s): A41.9 - Sepsis, unspecified organism; R65.20 - Severe sepsis without septic shock; G93.40 - Encephalopathy, unspecified
[2020-10-27 08:33] LABS: Basophils # (auto) 0.01 K/uL (0-0.2); Eosinophils # (auto) 0.04 K/uL (0-0.5); Eosinophils % (auto) 0.2 %; Hemoglobin 8.8 g/dL (12.0-16.0); Immature Granulocytes # (auto) 0.14 K/uL (0.00-0.02); Immature Granulocytes % (auto) 0.6 %; Lymphocytes % (auto) 12.3 %; Mean Corpuscular Hgb Conc 32.6 g/dL (32-36); Mean Corpuscular Volume 92.2 fL (80-100); Mean Platelet Volume 7.9 fL (7.4-10.4); Monocytes % (auto) 12.7 %; Neutrophils # (auto) 16.28 K/uL (1.4-6.5); Neutrophils % (auto) 74.2 %; Platelet Count 445 K/uL (130-400); RDW Coefficient of Variation 13.6 % (11.5-14.5); RDW Standard Deviation 45.3 fL (36.4-46.3); Red Blood Count 2.93 M/uL (4.2-5.4); White Blood Count 21.97 K/uL (4.8-10.8)
[2020-10-27 09:08] LABS: BUN Creatinine Ratio 21.9 (10-20); Calcium 9.4 mg/dl (8.5-10.1); Creatinine Clr Calc Pharmacy 150.1 ml/min; Est GFR (African American) 144.4 ml/min; Est GFR (Non-African American) 124.6 ml/min; Potassium 3.7 mmol/L (3.5-5.1)
[2020-10-27] MEDS: INSULIN GLARGINE SOLOSTAR 100 UNITS/ML 3 ML PEN SC SCH (09:47)
[2020-10-27] MEDS: INSULIN ASPART 100 UNITS/ML 3 ML PEN SC SCH ×4 (09:48→21:40)
[2020-10-27] MEDS: valACYclovir HCL 500 MG TABLET PO SCH (09:55)
[2020-10-27] MEDS: lisinopril 20 MG TAB PO SCH (09:56)
[2020-10-27] MEDS: METOPROLOL SUCC 50MG EXT REL TAB PO SCH (09:56)
[2020-10-27] MEDS: ASPIRIN 81 MG ECTAB PO SCH (09:57)
[2020-10-27] MEDS: CLOPIDOGREL BISULFATE 75 MG TAB PO SCH (09:57)
[2020-10-27] MEDS: ATORVASTATIN 40 MG TAB PO SCH (09:57)
[2020-10-27] MEDS: HEPARIN SOD 5,000 UNIT/0.5 ML VIAL SQ SCH ×2 (09:58→21:40)
--- NOTE | 2020-10-27 10:14 | Orthopedic Progress Note ---
Date of Service October 27, 2020 Assessment & Plan (1) Status post amputation of leg: POD2 uncomplicated progress with wound healing. Remains with leukocytosis which may be tapering slow. Culture pending. - Continue abx coverage. Will need 6 weeks abx coverage from DOS. Consider transition to oral when WBC decreases. - Follow tissue culture from 10/25 which is being reincubated for pinpoint growth - Given leukocytosis, please consider other sources. - Dressing: daily dressing change or as needed. May lay residual limb in the posterior splint as needed for comfort and protection of residual limb - VTE ppx: per primary, chronic ASA + Plavix - Pain control per primary Dispo: Need to monitor tissue culture from OR and decrease leukocytosis before transition to next level of care. Will need amputation/wound care at next level. Subjective Reports no significant pain. No other issues reported. Review of Systems All systems reviewed & are unremarkable except as noted in HPI & below. Physical Exam LLE: Dressing c/d/i. No significant drainage in OZZY. Dressing taken down. OZZY drain removed. Wound well-approximated without erythema or drainage. Drain site w small amount of serosanguinous drainage, no purulence. Residual limb posterior flap appears well perfused. There is a punctate chronic ulceration at most distal stump on posterior flap that was noted at time of surgery but unavoidable. It appears to have some small serosanguinous drainage from epidermilysis. Will watch. Wounds dressed with xeroform and ABDs, contained by stockinette. Constitutional WD/WN, vitals as above no acute distress and not intoxicated appearing Respiratory normal respiratory effort; no labored breathing Cardiovascular Extremities: normal capillary refill Results & Data Results & Data Laboratory Results Name: ARMIDA LYONS Acct: [id number] Status: ADM IN : 1970 [facility] [place] Date: 10/18/20 Age: 50 Sex: F Dis Date: Loc: [address]/Bed: N279-1 Spec: [id number] Collected: 10/25/20 Received: 10/25/20-[address]: Luis A Vieira MD Copy To: Barrie Pennington M.D. Source: Leg,Left OV Order: Ordered: Aer/Georgie Cult/Sm Comments: Comment left calcaneal heel tissue Procedure Result Verified Site Gram Stain Final 10/25/20 Gram Stain Result Many WBCs Seen Few Gram Positive Cocci Aero/Georgie Cult Preliminary 10/26/20 Pin-point growth present, reincubating. Diagnostic Findings . PG Care Time/CCT Total # of Minutes Spent Total Time Spent with Patient: Total time spent is greater than 50% in coordination of care (as documented) at patient's floor/unit and/or counseling patient: Coding Level of Care Code 85888 Post Operative Follow-Up Diagnoses Status post amputation of leg Z89.619
[2020-10-27] MEDS: oxyCODONE HCL IR 5 MG TAB (IMMEDIATE RELEASE) PO PRN (14:24)
--- NOTE | 2020-10-27 15:40 | Pharmacy Report ---
Pharmacy Glycemic Short Note 2 - Date of Service October 27, 2020 - Glycemic Short BSG Results (Last 24 hours): 10/26/20 10/26/20 10/27/20 16:25 20:01 07:27 Glucose POC Glucose 119 H 96 183 H 10/27/20 10/27/20 08:14 11:15 Glucose 184 H POC Glucose 256 H OUTPATIENT ANTIDIABETIC REGIMEN: * novolog 8 units with meals * Lantus 50 units once daily * Metformin BID * A1c: 12.9% ASSESSMENT: 10/27/20: * Pt has received 106 units of insulin over the past 24hrs * 65 units of basal with Lantus * 41 units of bolus with NovoLog * BSGs ranged from 96 - 219 mg/dL * Fasting BSG remains above goal but is trending downward. Lantus dose was just increased yesterday. Since improvement is seen, will continue same dose for now * Post prandials fluctuate. Lunch BSG appears to always be the highest. Patient tends to eat a late breakfast, therefore we are not seeing effect of AM Novolog at the time of lunch BSG check. I will not change novolog parameters since both dinner and HS BSG are at/below goal. 10/25/20: * Pt has received 142 units of insulin over the past 24hrs (45% increase compared to 10/23) * 55 units of basal with Lantus * 87 units of bolus with NovoLog * BSGs ranged from 197 - 270 mg/dL * Fasting BSG is above goal. Will increase basal insulin starting tomorrow. * Post prandial elevation continues. Tighten Novolog CF/CR. Anticipate better control today per patient is NPO for Lilly LAZARO. 10/23/20 * BSGs yesterday were [phone] and overnight were 200-151 mg/dL. Fasting BSG was 132 mg/dL. * Increase basal insulin by 10% to 55 units as fasting trending up slightly. * Tighten Novolog since BSGs trend upwards throughout the day. 10/22/20 * BSGs yesterday were [phone] and overnight were 242-140 mg/dL. Fasting BSG was 75 mg/dL. * Held AM Lantus until BSG rebounded at lunchtime (wanted to ensure patient's BSGs did not continue to trend downwards). * Give full daily dose in AM. Give 50 units (20% reduction due to hypoglycemia) * Tighten Novolog since BSGs trend upwards throughout the day. PLAN FOR INPATIENT GLYCEMIC CONTROL: * Hold outpatient oral diabetes medications * Basal insulin * Lantus 60-65 units daily (65 units for BSG > 140 mg/dL) * Bolus insulin * NovoLog ACHS * Goal range 110-140 mg/dL * Correction factor: 10 mg/dL/unit * Carb ratio: 3 g CHO/unit PLAN FOR DISCHARGE: * A1c of 12.9 % (10/19/20) is above goal * Consider increase in insulin dosing on discharge * Lantus 65 units SQ once daily * Novolog 12 units TID with meals (hold novolog if meal is skipped) PLUS sliding scale for correction
[2020-10-27] MEDS: DAPTOmycin 200 MG in SYRINGE 0 ML IV SCH (17:31)
[2020-10-27] MEDS: cefTRIAXone SODIUM 2,000 MG in DEXTROSE 5% 50 ML IV SCH (21:41)
[2020-10-28] MEDS: ACETAMINOPHEN 500 MG TAB PO SCH ×4 (04:57→20:06)
--- NOTE | 2020-10-28 07:17 | Hospitalist Progress Note ---
Date of Service October 28, 2020 Assessment & Plan (1) Diabetic wet gangrene of the foot: Plan: CT showing soft tissue ulcer of the dorsal hindfoot with subcutaneous emphysema and cellulitis changes, as well as cortical irregularity with associated lucencies of the dorsal aspect of the posterior calcaneus compatible with osteomyelitis. Ceftriaxone per sensitivities of wound culture growing providencia rettgeri, treatment since 10/18. Ortho consulted following recs, mahan chi performed 10/25/20. Consulted wound care appreciate recs. Febrile overnight on 10/23/20, blood cultures re-drawn, NGTD 10/25/20. Ordered wound cultures 10/25/20 currently gram negative enterococcus faecalis and Proteus Mirabilis, both sensitive to ampicillin, consider augmentin as outpt PO abx. -on ceftriaxone and daptomycin -monitor CBC, BMP, current WBC 16.77 (from 21.97) -on aceteminophen and oxycodone PRN for pain -heparin, aspirin plavix for anticoagulation (2) Sepsis: Plan: see above (3) Decubitus ulcer of left heel: Plan: see above (4) DKA (diabetic ketoacidosis): Plan: A1C 12.9 on 10/19 indicating poory controlled DM. 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 Needs education regarding DM management. Outpt Regimen: novolog achs, Lantus 50 units, BID Metformin BID. Glycemic CX placed following recs - current blood glucose 217 - currently managed with novolog, lantus (5) Cellulitis: Plan: resolved (6) Acute metabolic encephalopathy: Plan: resolved Plan: (7) Stroke: - Hx significant chronic R MCA stroke - Continue home statin, aspirin and clopidogrel (8) HTN/HLD - continue home lisinopril, metoprolol, and statin (9) Varicella zoster (back): - completed course valacyclovir QID for 7 days (10/20 - 10/27), rash is much improved (10) PT/OT - ordered, pending Admission and Anticipated Discharge Date Admission Date: October 18, 2020 Supervising Physician Co-Signing Physician Notes I also saw the patient and confirmed polanco portions of the history and physical examination. I agree with the impression and plan as noted in the resident documentation. Exam 147/73, 104, 16, 36.8, 90% on room air Pleasant. Alert. Heart regular rate and rhythm. Lungs are clear. Data Blood blood cell count 16.77, down from 21.97 yesterday. BUN 13, creatinine 0.31 A left leg culture dated 10/25/2020 shows probable Enterococcus, gram-negative bacilli A left foot culture dated 10/25/2020 demonstrates Enterococcus faecalis and Proteus Impression and plan Heel ulcer osteomyelitis Postop day #2, below the knee amputation Leukocytosis Continue ceftriaxone and daptomycin Consider addition to p.o. once leukocytosis nears normalization Type 2 diabetes, uncontrolled Glycemic consult Else see resident documentation as noted. Subjective 50yo Female here for heel ulcer osteomyelitis had BKA 10/25/20 currently day 3 postop. Ortho is following, they want to transition to oral abx once WBC go down need 6 wk coverage from DOS, wound dressing changed. Patient was seen at bedside, comfortable, slept ate well voiding normally. She states she is in some pain, will not allow left limb to be move. Also complained of mild gassiness. Aguilar present. PMH: HTN, HLD, IDDM, PVD, CVA Review of Systems Constitutional: no fever and no chills Ear, Nose, Mouth, Throat: no ear pain, no hearing loss, no dizziness, no change in voice and no dysphagia Respiratory: no cough and no dyspnea Cardiovascular: no chest pain and no palpitations Gastrointestinal: no abdominal pain, no nausea, no vomiting, no constipation and no diarrhea/loose stools Musculoskeletal: no swelling Physical Exam Constitutional: cooperative and comfortable Eyes: PERRL, conjunctivae normal, anicteric sclerae Respiratory: normal respiratory effort, lungs clear to auscultation normal respiratory effort Auscultation: lungs clear to auscultation bilaterally Cardiovascular: RRR, no murmur, no edema Heart Sounds: normal S1 and normal S2 Extremities: no edema Gastrointestinal (Abdomen): normal bowel sounds, soft, nontender, no hepa tosplenomegaly Skin: Shingles on R back healing well. Some redness under breast skin folds. Results & Data Results & Data ([facility]) Vital Signs (Past 12 Hours) Vital Signs Temp Pulse Pulse Resp BP Pulse Ox 10/28/20 04:55 36.9 C 91 H 16 144/68 H 98 10/27/20 23:34 81 10/27/20 23:14 36.9 C 79 16 123/74 97 10/27/20 19:36 36.5 C 92 H 16 118/72 97 Laboratory Results 10/28/20 10/28/20 10/28/20 Range/Units 11:52 07:59 07:11 WBC (4.8-10.8) K/uL RBC (4.2-5.4) M/uL Hgb (12.0-16.0) g/dL Hct (37-47) % MCV (80-100) fL MCH (25-34) pg MCHC (32-36) g/dL RDW Std Deviation (36.4-46.3) fL RDW Coeff of Travis (11.5-14.5) % Plt Count (130-400) K/uL MPV (7.4-10.4) fL Immature Gran % (Auto) % Neut % (Auto) % Lymph % (Auto) % [place] % (Auto) % Eos % (Auto) % Baso % (Auto) % Neut # (Auto) (1.4-6.5) K/uL Lymph # (Auto) (1.2-3.4) K/uL [place] # (Auto) (0.11-0.59) K/uL Eos # (Auto) (0-0.5) K/uL Baso # (Auto) (0-0.2) K/uL Immature Gran # (Auto) (0.00-0.02) K/uL RBC Morphology Sodium 134 L (136-145) mmol/L Potassium 3.8 (3.5-5.1) mmol/L Chloride 101 (98-107) mmol/L Carbon Dioxide 29 (21-32) mmol/L Anion Gap 5.0 (3-11) BUN 13 D (7-18) mg/dl Creatinine 0.31 L (0.6-1.2) mg/dl Est Cr Clr Drug Dosing 180.1 ml/min Est GFR ( Amer) > 150.0 ml/min Est GFR (Non-Af Amer) 132.1 ml/min BUN/Creatinine Ratio 42.5 H (10-20) Glucose 217 H (70-99) mg/dl POC Glucose 164 H 234 H (70-99) mg/dl Calcium 9.7 (8.5-10.1) mg/dl 10/28/20 10/27/20 10/27/20 Range/Units 07:11 23:41 20:25 WBC 16.77 H (4.8-10.8) K/uL RBC 2.66 L (4.2-5.4) M/uL Hgb 7.9 L (12.0-16.0) g/dL Hct 24.8 L (37-47) % MCV 93.2 (80-100) fL MCH 29.7 (25-34) pg MCHC 31.9 L (32-36) g/dL RDW Std Deviation 46.8 H (36.4-46.3) fL RDW Coeff of Travis 14.0 (11.5-14.5) % Plt Count 499 H (130-400) K/uL MPV 8.1 (7.4-10.4) fL Immature Gran % (Auto) 0.5 % Neut % (Auto) 72.4 % Lymph % (Auto) 15.8 % Lancaster % (Auto) 10.4 % Eos % (Auto) 0.8 % Baso % (Auto) 0.1 % Neut # (Auto) 12.15 H (1.4-6.5) K/uL Lymph # (Auto) 2.65 (1.2-3.4) K/uL Lancaster # (Auto) 1.75 H (0.11-0.59) K/uL Eos # (Auto) 0.13 (0-0.5) K/uL Baso # (Auto) 0.01 (0-0.2) K/uL Immature Gran # (Auto) 0.08 H (0.00-0.02) K/uL RBC Morphology Unremarkable Sodium (136-145) mmol/L Potassium (3.5-5.1) mmol/L Chloride (98-107) mmol/L Carbon Dioxide (21-32) mmol/L Anion Gap (3-11) BUN (7-18) mg/dl Creatinine (0.6-1.2) mg/dl Est Cr Clr Drug Dosing ml/min Est GFR ( Amer) ml/min Est GFR (Non-Af Amer) ml/min BUN/Creatinine Ratio (10-20) Glucose (70-99) mg/dl POC Glucose 244 H 274 H (70-99) mg/dl Calcium (8.5-10.1) mg/dl 10/27/20 Range/Units 16:44 WBC (4.8-10.8) K/uL RBC (4.2-5.4) M/uL Hgb (12.0-16.0) g/dL Hct (37-47) % MCV (80-100) fL MCH (25-34) pg MCHC (32-36) g/dL RDW Std Deviation (36.4-46.3) fL RDW Coeff of Travis (11.5-14.5) % Plt Count (130-400) K/uL MPV (7.4-10.4) fL Immature Gran % (Auto) % Neut % (Auto) % Lymph % (Auto) % [place] % (Auto) % Eos % (Auto) % Baso % (Auto) % Neut # (Auto) (1.4-6.5) K/uL Lymph # (Auto) (1.2-3.4) K/uL Lancaster # (Auto) (0.11-0.59) K/uL Eos # (Auto) (0-0.5) K/uL Baso # (Auto) (0-0.2) K/uL Immature Gran # (Auto) (0.00-0.02) K/uL RBC Morphology Sodium (136-145) mmol/L Potassium (3.5-5.1) mmol/L Chloride (98-107) mmol/L Carbon Dioxide (21-32) mmol/L Anion Gap (3-11) BUN (7-18) mg/dl Creatinine (0.6-1.2) mg/dl Est Cr Clr Drug Dosing ml/min Est GFR ( Amer) ml/min Est GFR (Non-Af Amer) ml/min BUN/Creatinine Ratio (10-20) Glucose (70-99) mg/dl POC Glucose 199 H (70-99) mg/dl Calcium (8.5-10.1) mg/dl Medications Administered Current Inpatient Medications Acetaminophen (Acetaminophen 500 Mg Tab) 1,000 mg PO Q8H MART Stop: 11/21/20 20:59 Last Admin: 10/28/20 12:50 Dose: 1,000 mg Documented by: Aspirin (Aspirin 81 Mg Ectab) 81 mg PO DAILY MART Stop: 11/18/20 08:59 Last Admin: 10/28/20 08:17 Dose: 81 mg Documented by: Atorvastatin Calcium (Atorvastatin 40 Mg Tab) 40 mg PO DAILY MART Stop: 11/18/20 08:59 Last Admin: 10/28/20 08:18 Dose: 40 mg Documented by: Clopidogrel Bisulfate (Clopidogrel Bisulfate 75 Mg Tab) 75 mg PO DAILY MART Stop: 11/18/20 08:59 Last Admin: 10/28/20 08:18 Dose: 75 mg Documented by: Dextrose (Dextrose 50% 50 Ml Syringe) 25 - 50 ml IV UD PRN; Protocol PRN Reason: Hypoglycemia Protocol Stop: 11/17/20 23:14 Glucagon (Glucagon For Inj 1 Mg Vial) 1 mg IM UD PRN; Protocol PRN Reason: Hypoglycemia Protocol Stop: 11/17/20 23:14 Glucose (Glucose 40% Gel 15 Gm Tube) 15 - 30 gm PO UD PRN; Protocol PRN Reason: Hypoglycemia Protocol Stop: 11/17/20 23:14 Glucose (Glucose 10 Tabs/Tube) 4 - 8 tabs PO UD PRN; Protocol PRN Reason: Hypoglycemia Protocol Stop: 11/17/20 23:14 Heparin Sodium (Porcine) (Heparin Sod 5,000 Unit/0.5 Ml Vial) 5,000 units SQ Q12 MART Stop: 11/18/20 20:59 Last Admin: 10/28/20 08:34 Dose: 5,000 units Documented by: Ceftriaxone Sodium 2,000 mg/ (Dextrose) 70 mls @ 100 mls/hr IV Q24H MART; Protocol Stop: 12/02/20 21:59 Last Infusion: 10/27/20 22:51 Dose: Infused Documented by: Daptomycin 200 mg/ Syringe 4 mls @ 2 mls/min IV Q24H MART; Protocol Stop: 12/08/20 15:59 Last Admin: 10/27/20 17:31 Dose: 2 mls/min Documented by: Insulin Aspart (Insulin Aspart 100 Units/Ml 3 Ml Pen) 0 units SC ACHS MART; Protocol Stop: 11/22/20 16:29 Last Admin: 10/28/20 12:48 Dose: 25 units Documented by: Insulin Glargine (Insulin Glargine Solostar 100 Units/Ml 3 Ml Pen) 0 units SC DAILY MART; Protocol Stop: 11/25/20 08:59 Last Admin: 10/28/20 08:31 Dose: 65 units Documented by: Lisinopril (Lisinopril 20 Mg Tab) 20 mg PO DAILY [facility] Stop: 11/18/20 08:59 Last Admin: 10/28/20 08:18 Dose: 20 mg Documented by: Metoprolol Succinate (Metoprolol Succ 50mg Ext Rel Tab) 50 mg PO DAILY MART Stop: 11/18/20 08:59 Last Admin: 10/28/20 08:17 Dose: 50 mg Documented by: Metoprolol Tartrate (Metoprolol Tartrate 1 Mg/Ml Vial) 2.5 mg IV Q6 PRN PRN Reason: SBP > 160 Stop: 11/18/20 11:59 Last Admin: 10/20/20 03:18 Dose: 2.5 mg Documented by: Miscellaneous (Carbohydrates For Hypoglycemia ) 15 - 30 gm PO PRN PRN PRN Reason: Hypoglycemia Treatment Stop: 11/17/20 23:14 Miscellaneous Information (Pharmacy Glycemic Mgmt Consult) 1 ea N/A UD PRN PRN Reason: Consult Stop: 11/18/20 01:08 Miscellaneous Information (Daptomycin Consult Active) 1 ea N/A UD PRN PRN Reason: Consult Stop: 11/26/20 14:59 Morphine Sulfate (Morphine Sulfate 2 Mg/Ml Carp) 2 mg IV Q4H PRN PRN Reason: severe pain, pre-turning Stop: 11/02/20 08:56 Last Admin: 10/26/20 03:05 Dose: 2 mg Documented by: Nystatin (Nystatin Powder 15gm Btl) 1 appln EXT BID PRN PRN Reason: Affected Skin Folds Stop: 11/18/20 02:18 Oxycodone HCl (Oxycodone Hcl Ir 5 Mg Tab (Immediate Release)) 5 mg PO Q4H PRN PRN Reason: MODERATE Pain (4,5,6) & Pre PT Stop: 11/08/20 18:29 Last Admin: 10/28/20 08:11 Dose: 5 mg Documented by: Oxycodone HCl (Oxycodone Hcl Ir 5 Mg Tab (Immediate Release)) 10 mg PO Q4H PRN PRN Reason: SEVERE Pain (7,8,9,10) Stop: 11/08/20 18:29 Last Admin: 10/26/20 06:30 Dose: 10 mg Documented by: Resident Activity Tracking Resident Involvement: Resident Care Provided Care Provided: Adult Hospital Medicine (1) DKA (diabetic ketoacidosis) Diabetes mellitus complication detail: without coma Diabetes mellitus type: other specified (including SALO) Qualified Code(s): E13.10 - Other specified diabetes mellitus with ketoacidosis without coma (2) Sepsis Sepsis acute organ dysfunction status: with acute organ dysfunction Sepsis type: sepsis due to unspecified organism Severe sepsis acute organ dysfunction type: encephalopathy Severe sepsis shock status: without septic shock Qualified Code(s): A41.9 - Sepsis, unspecified organism; R65.20 - Severe sepsis without septic shock; G93.40 - Encephalopathy, unspecified
[2020-10-28 07:57] LABS: Basophils # (auto) 0.01 K/uL (0-0.2); Basophils % (auto) 0.1 %; Eosinophils # (auto) 0.13 K/uL (0-0.5); Eosinophils % (auto) 0.8 %; Hematocrit (blood only) 24.8 % (37-47); Hemoglobin 7.9 g/dL (12.0-16.0); Immature Granulocytes # (auto) 0.08 K/uL (0.00-0.02); Immature Granulocytes % (auto) 0.5 %; Lymphocytes # (auto) 2.65 K/uL (1.2-3.4); Lymphocytes % (auto) 15.8 %; Mean Corpuscular Hemoglobin 29.7 pg (25-34); Mean Corpuscular Hgb Conc 31.9 g/dL (32-36); Mean Corpuscular Volume 93.2 fL (80-100); Mean Platelet Volume 8.1 fL (7.4-10.4); Monocytes # (auto) 1.75 K/uL (0.11-0.59); Monocytes % (auto) 10.4 %; Neutrophils # (auto) 12.15 K/uL (1.4-6.5); Neutrophils % (auto) 72.4 %; Platelet Count 499 K/uL (130-400); RDW Standard Deviation 46.8 fL (36.4-46.3); Red Blood Count 2.66 M/uL (4.2-5.4); White Blood Count 16.77 K/uL (4.8-10.8)
[2020-10-28] MEDS: oxyCODONE HCL IR 5 MG TAB (IMMEDIATE RELEASE) PO PRN ×3 (08:11→22:50)
[2020-10-28] MEDS: ASPIRIN 81 MG ECTAB PO SCH (08:17)
[2020-10-28] MEDS: METOPROLOL SUCC 50MG EXT REL TAB PO SCH (08:17)
[2020-10-28] MEDS: CLOPIDOGREL BISULFATE 75 MG TAB PO SCH (08:18)
[2020-10-28] MEDS: ATORVASTATIN 40 MG TAB PO SCH (08:18)
[2020-10-28] MEDS: lisinopril 20 MG TAB PO SCH (08:18)
[2020-10-28 08:25] LABS: RBC Morphology Unremarkable
[2020-10-28 08:26] LABS: BUN Creatinine Ratio 42.5 (10-20); Blood Urea Nitrogen 13 mg/dl (7-18); Calcium 9.7 mg/dl (8.5-10.1); Carbon Dioxide 29 mmol/L (21-32); Chloride 101 mmol/L (98-107); Creatinine Clr Calc Pharmacy 180.1 ml/min; Est GFR (African American) > 150.0 ml/min; Est GFR (Non-African American) 132.1 ml/min; Glucose 217 mg/dl (70-99); Potassium 3.8 mmol/L (3.5-5.1); Sodium 134 mmol/L (136-145)
[2020-10-28] MEDS: INSULIN ASPART 100 UNITS/ML 3 ML PEN SC SCH ×4 (08:30→20:08)
[2020-10-28] MEDS: INSULIN GLARGINE SOLOSTAR 100 UNITS/ML 3 ML PEN SC SCH (08:31)
[2020-10-28] MEDS: HEPARIN SOD 5,000 UNIT/0.5 ML VIAL SQ SCH ×2 (08:34→20:07)
--- NOTE | 2020-10-28 08:42 | Orthopedic Progress Note ---
Date of Service October 28, 2020 Assessment & Plan (1) Status post amputation of leg: POD3 uncomplicated progress with wound healing. New culture results to tailor abx tx. - Continue abx coverage. Will need 6 weeks abx coverage from DOS. Consider transition to oral when WBC normalizes. - Dressing: daily dressing change or as needed. May lay residual limb in the posterior splint as needed for comfort and protection of residual limb - VTE ppx: per primary, chronic ASA + Plavix - Pain control per primary Dispo: Need to monitor tissue culture from OR and decrease leukocytosis before transition to next level of care. Will need amputation/wound care at next level. Subjective Pain tolerable. No new complaints Review of Systems All systems reviewed & are unremarkable except as noted in HPI & below. Physical Exam LLE: dressing c/d/i Results & Data Results & Data Laboratory Results H & H 10/18/20 10/19/20 10/20/20 Range/Units 14:25 05:43 04:44 Hgb 13.5 11.2 L 10.8 L (12.0-16.0) g/dL Hct 39.3 32.7 L 30.7 L (37-47) % 10/21/20 10/22/20 10/23/20 Range/Units 04:13 08:00 07:30 Hgb 10.0 L 9.9 L 9.9 L (12.0-16.0) g/dL Hct 28.8 L 29.5 L 29.7 L (37-47) % 10/24/20 10/25/20 10/26/20 Range/Units 06:52 07:03 06:59 Hgb 9.8 L 9.9 L 9.6 L (12.0-16.0) g/dL Hct 29.8 L 29.6 L 29.7 L (37-47) % 10/27/20 10/28/20 Range/Units 08:14 07:11 Hgb 8.8 L 7.9 L (12.0-16.0) g/dL Hct 27.0 L 24.8 L (37-47) % Coagulation 10/18/20 Range/Units 14:25 INR 1.1 (0.9-1.1) Diagnostic Findings Spec: [id number] Collected: 10/25/20-1549 Received: 10/25/[address]: Luis A Vieira MD Copy To: Barrie Pennington M.D. Source: Foot,Left OV Order: Ordered: Aer/Georgie Cult/Sm Comments: Comment left deep heel wound Procedure Result Verified Site Gram Stain Final 10/25/20 Gram Stain Result Many WBCs Seen Many Gram Positive Cocci Aero/Georgie Cult Preliminary 10/28/20 Organism 1 Probable Enterococcus Quantity Moderate Sens Sensitivities to Follow Organism 2 Proteus mirabilis Quantity Moderate Sens Sensitivities to Follow P mirabili RX M.I.C. --- --------- Amox/Clav S <=8/4 Ampicillin S <=8 Amp/Sul S <=8/4 Cefazolin S <=2 Cefepime S <=2 Ceftriaxone S <=1 Ciprofloxacin S <=0.25 Ertapenem S <=0.5 Gentamicin S <=4 Levofloxacin S <=0.5 Meropenem S <=1 Tobramycin S <=4 Trimeth/Sulfa S <=2/38 Pip/Tazo S <=16 S = SENSITIVE I = INTERMEDIATE R = RESISTANT PG Care Time/CCT Total # of Minutes Spent Total Time Spent with Patient: Total time spent is greater than 50% in coordination of care (as documented) at patient's floor/unit and/or counseling patient: Coding Level of Care Code 69593 Post Operative Follow-Up Diagnoses Status post amputation of leg Z89.619
--- NOTE | 2020-10-28 08:43 | Pharmacy Report ---
Pharmacy Glycemic Short Note 2 - Date of Service October 28, 2020 - Glycemic Short BSG Results (Last 24 hours): 10/27/20 10/27/20 10/27/20 08:14 11:15 16:44 Glucose 184 H POC Glucose 256 H 199 H 10/27/20 10/27/20 10/28/20 20:25 23:41 07:11 Glucose 217 H POC Glucose 274 H 244 H 10/28/20 07:59 Glucose POC Glucose 234 H OUTPATIENT ANTIDIABETIC REGIMEN: * novolog 8 units with meals * Lantus 50 units HS (confirmed w/ patient's and updated med rec) * Metformin 500mg PO BID * A1c: 12.9% ASSESSMENT: 10/28/20: * Pt has received 133 units of insulin over the past 24hrs * 65 units of basal with Lantus * 68 units of bolus with NovoLog * BSGs ranged from 183 - 274 mg/dL * Fasting BSG remains above goal, continue to titrate Lantus up * Post prandials elevated all day yesterday, tighten CF/CR. 10/27/20: * Pt has received 106 units of insulin over the past 24hrs * 65 units of basal with Lantus * 41 units of bolus with NovoLog * BSGs ranged from 96 - 219 mg/dL * Fasting BSG remains above goal but is trending downward. Lantus dose was just increased yesterday. Since improvement is seen, will continue same dose for now * Post prandials fluctuate. Lunch BSG appears to always be the highest. Patient tends to eat a late breakfast, therefore we are not seeing effect of AM Novolog at the time of lunch BSG check. I will not change novolog parameters since both dinner and HS BSG are at/below goal. 10/25/20: * Pt has received 142 units of insulin over the past 24hrs (45% increase compared to 10/23) * 55 units of basal with Lantus * 87 units of bolus with NovoLog * BSGs ranged from 197 - 270 mg/dL * Fasting BSG is above goal. Will increase basal insulin starting tomorrow. * Post prandial elevation continues. Tighten Novolog CF/CR. Anticipate better control today per patient is NPO for L BKA. 10/23/20 * BSGs yesterday were [phone] and overnight were 200-151 mg/dL. Fasting BSG was 132 mg/dL. * Increase basal insulin by 10% to 55 units as fasting trending up slightly. * Tighten Novolog since BSGs trend upwards throughout the day. 10/22/20 * BSGs yesterday were [phone] and overnight were 242-140 mg/dL. Fasting BSG was 75 mg/dL. * Held AM Lantus until BSG rebounded at lunchtime (wanted to ensure patient's BSGs did not continue to trend downwards). * Give full daily dose in AM. Give 50 units (20% reduction due to hypoglycemia) * Tighten Novolog since BSGs trend upwards throughout the day. PLAN FOR INPATIENT GLYCEMIC CONTROL: * Hold outpatient oral diabetes medications * Basal insulin -increase * Lantus 65-70 units daily (70 units for BSG > 140 mg/dL) * Bolus insulin -tighten CF/CR * NovoLog ACHS * Goal range 110-140 mg/dL * Correction factor: 8 mg/dL/unit * Carb ratio: 2.5 g CHO/unit PLAN FOR DISCHARGE: * A1c of 12.9 % (10/19/20) is above goal * Consider increase in insulin dosing on discharge * Lantus 65 units SQ once daily * Novolog 12 units TID with meals (hold novolog if meal is skipped) PLUS sliding scale for correction
[2020-10-28] MEDS: DAPTOmycin 200 MG in SYRINGE 0 ML IV SCH (18:15)
[2020-10-28] MEDS: cefTRIAXone SODIUM 2,000 MG in DEXTROSE 5% 50 ML IV SCH (21:47)
[2020-10-28] MEDS: METOPROLOL TARTRATE 1 MG/ML VIAL IV PRN (23:34)
[2020-10-29] MEDS: ACETAMINOPHEN 500 MG TAB PO SCH ×3 (05:15→21:02)
--- NOTE | 2020-10-29 07:21 | Hospitalist Progress Note ---
Date of Service October 29, 2020 Assessment & Plan (1) Diabetic wet gangrene of the foot: Plan: CT showing soft tissue ulcer of the dorsal hindfoot with subcutaneous emphysema and cellulitis changes, as well as cortical irregularity with associated lucencies of the dorsal aspect of the posterior calcaneus compatible with osteomyelitis. Ceftriaxone per sensitivities of wound culture growing providencia rettgeri, treatment since 10/18. Ortho consulted following recs, mahan chi performed 10/25/20. Consulted wound care appreciate recs. Febrile overnight on 10/23/20, blood cultures re-drawn, NGTD 10/25/20. Ordered wound cultures 10/25/20 currently gram negative enterococcus faecalis and Proteus Mirabilis, both sensitive to ampicillin, consider augmentin as outpt PO abx. -on ceftriaxone and daptomycin, will speak with pharm about appropriate oral medication to switch to -monitor CBC, BMP, current WBC 14.66 (from 16.77), platelets trending upwards likely reactive to BKA -on acetaminophen and oxycodone PRN for pain -heparin, aspirin plavix for anticoagulation (2) Sepsis: Plan: see above (3) Decubitus ulcer of left heel: Plan: see above (4) DKA (diabetic ketoacidosis): Plan: A1C 12.9 on 10/19 indicating poory controlled DM. 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 Needs education regarding DM management. Outpt Regimen: novolog achs, Lantus 50 units, BID Metformin BID. Glycemic CX placed following recs - current blood glucose 122 - currently managed with novolog, lantus (5) Cellulitis: Plan: resolved (6) Acute metabolic encephalopathy: Plan: resolved Plan: (7) Stroke: - Hx significant chronic R MCA stroke - Continue home statin, aspirin and clopidogrel (8) HTN/HLD - continue home lisinopril, metoprolol, and statin (9) Varicella zoster (back): - completed course valacyclovir QID for 7 days (10/20 - 10/27), rash is much improved (10) PT/OT - seen by PT/OT FENa: [] Code Status: [DNR/DNI] DVT PPX: [herapin, aspirin, plavix] PT/OT: [ordered] Case Management: [inpt rehab] Dispo: [] Dina Sky Do, PGY 1, [facility] Admission and Anticipated Discharge Date Admission Date: October 18, 2020 Supervising Physician Co-Signing Physician Notes I also saw the patient and confirmed polanco portions of the history and physical examination. I agree with the impression and plan as noted in the resident documentation. Exam 163/96, 85, 18, 36.8, 90% on room air Pleasant. Alert. Heart regular rate and rhythm. Lungs are clear. Data CBC is pending BMP is pending A left leg culture dated 10/25/2020 and a left foot culture dated 10/25/2020 both demonstrate Enterococcus faecalis and Proteus Impression and plan Heel ulcer osteomyelitis Postop day #2, below the knee amputation Leukocytosis Continue ceftriaxone and daptomycin Consider addition to p.o. once leukocytosis nears normalization Disposition [facility] facility for physical therapy, with hopeful transition to home Type 2 diabetes, uncontrolled Glycemic consult Else see resident documentation as noted. Subjective 50yo Female here for heel ulcer osteomyelitis had BKA 10/25/20 currently day 4 postop. Ortho is following, they want to transition to oral abx once WBC go down need 6 wk coverage from DOS, wound dressing changed. Patient was seen at bedside, comfortable, slept ate well voiding normally. Aguilar is present. She states she has some pain currently 3/10, still feeling gassy. She has seen PT yesterday. Case management has contacted her , patient agrees she needs inpatient rehab after hospitalization for her leg. Currently awaiting placement. Patient is tired of getting blood drawn. PMH: HTN, HLD, IDDM, PVD, CVA Review of Systems Constitutional: no fever and no chills Ear, Nose, Mouth, Throat: no ear pain, no hearing loss, no dizziness, no change in voice and no dysphagia Respiratory: no cough and no dyspnea Cardiovascular: no chest pain and no palpitations Gastrointestinal: + excessive flatulence; no abdominal pain, no nausea, no vomiting, no constipation and no diarrhea/loose stools Musculoskeletal: no swelling Physical Exam Constitutional: cooperative and comfortable Eyes: PERRL, conjunctivae normal, anicteric sclerae Respiratory: normal respiratory effort, lungs clear to auscultation normal respiratory effort Auscultation: lungs clear to auscultation bilaterally Cardiovascular: RRR, no murmur, no edema Heart Sounds: normal S1 and normal S2 Extremities: no edema Gastrointestinal (Abdomen): normal bowel sounds, soft, nontender, no hepatosplenomegaly Skin: Shingles on R back healing well. Some redness under breast skin folds. Results & Data Results & Data ([facility]) Vital Signs (Past 12 Hours) Vital Signs Temp Pulse Pulse Resp BP Pulse Ox 10/29/20 02:59 36.6 C 90 18 162/83 H 95 10/29/20 00:23 94 H 10/29/20 00:13 169/80 H 10/28/20 23:33 103 H 178/97 H 10/28/20 23:00 36.7 C 103 H 18 174/82 H 96 Laboratory Results 10/29/20 10/29/20 10/29/20 Range/Units 17:19 16:49 16:49 WBC 14.66 H (4.8-10.8) K/uL RBC 2.75 L (4.2-5.4) M/uL Hgb 8.4 L (12.0-16.0) g/dL Hct 25.9 L (37-47) % MCV 94.2 (80-100) fL MCH 30.5 (25-34) pg MCHC 32.4 (32-36) g/dL RDW Std Deviation 46.6 H (36.4-46.3) fL RDW Coeff of Travis 13.9 (11.5-14.5) % Plt Count 590 H (130-400) K/uL MPV 7.6 (7.4-10.4) fL Immature Gran % (Auto) 0.4 % Neut % (Auto) 63.3 % Lymph % (Auto) 26.5 % Camas % (Auto) 7.7 % Eos % (Auto) 2.0 % Baso % (Auto) 0.1 % Neut # (Auto) 9.27 H (1.4-6.5) K/uL Lymph # (Auto) 3.89 H (1.2-3.4) K/uL Cam[place] # (Auto) 1.13 H (0.11-0.59) K/uL Eos # (Auto) 0.30 (0-0.5) K/uL Baso # (Auto) 0.01 (0-0.2) K/uL Immature Gran # (Auto) 0.06 H (0.00-0.02) K/uL Sodium 137 (136-145) mmol/L Potassium 4.1 (3.5-5.1) mmol/L Chloride 101 (98-107) mmol/L Carbon Dioxide 30 (21-32) mmol/L Anion Gap 5.0 (3-11) BUN 15 (7-18) mg/dl Creatinine 0.40 L (0.6-1.2) mg/dl Est Cr Clr Drug Dosing 141.3 ml/min Est GFR ( Amer) 140.8 ml/min Est GFR (Non-Af Amer) 121.4 ml/min BUN/Creatinine Ratio 37.9 H (10-20) Glucose 122 H (70-99) mg/dl POC Glucose 125 H (70-99) mg/dl Calcium 10.0 (8.5-10.1) mg/dl 10/29/20 10/29/20 10/29/20 Range/Units 11:51 07:19 00:37 WBC (4.8-10.8) K/uL RBC (4.2-5.4) M/uL Hgb (12.0-16.0) g/dL Hct (37-47) % MCV (80-100) fL MCH (25-34) pg MCHC (32-36) g/dL RDW Std Deviation (36.4-46.3) fL RDW Coeff of Travis (11.5-14.5) % Plt Count (130-400) K/uL MPV (7.4-10.4) fL Immature Gran % (Auto) % Neut % (Auto) % Lymph % (Auto) % Cam[place] % (Auto) % Eos % (Auto) % Baso % (Auto) % Neut # (Auto) (1.4-6.5) K/uL Lymph # (Auto) (1.2-3.4) K/uL Camas # (Auto) (0.11-0.59) K/uL Eos # (Auto) (0-0.5) K/uL Baso # (Auto) (0-0.2) K/uL Immature Gran # (Auto) (0.00-0.02) K/uL Sodium (136-145) mmol/L Potassium (3.5-5.1) mmol/L Chloride (98-107) mmol/L Carbon Dioxide (21-32) mmol/L Anion Gap (3-11) BUN (7-18) mg/dl Creatinine (0.6-1.2) mg/dl Est Cr Clr Drug Dosing ml/min Est GFR ( Amer) ml/min Est GFR (Non-Af Amer) ml/min BUN/Creatinine Ratio (10-20) Glucose (70-99) mg/dl POC Glucose 199 H 261 H 220 H (70-99) mg/dl Calcium (8.5-10.1) mg/dl 10/28/20 Range/Units 19:56 WBC (4.8-10.8) K/uL RBC (4.2-5.4) M/uL Hgb (12.0-16.0) g/dL Hct (37-47) % MCV (80-100) fL MCH (25-34) pg MCHC (32-36) g/dL RDW Std Deviation (36.4-46.3) fL RDW Coeff of Travis (11.5-14.5) % Plt Count (130-400) K/uL MPV (7.4-10.4) fL Immature Gran % (Auto) % Neut % (Auto) % Lymph % (Auto) % [place] % (Auto) % Eos % (Auto) % Baso % (Auto) % Neut # (Auto) (1.4-6.5) K/uL Lymph # (Auto) (1.2-3.4) K/uL [place] # (Auto) (0.11-0.59) K/uL Eos # (Auto) (0-0.5) K/uL Baso # (Auto) (0-0.2) K/uL Immature Gran # (Auto) (0.00-0.02) K/uL Sodium (136-145) mmol/L Potassium (3.5-5.1) mmol/L Chloride (98-107) mmol/L Carbon Dioxide (21-32) mmol/L Anion Gap (3-11) BUN (7-18) mg/dl Creatinine (0.6-1.2) mg/dl Est Cr Clr Drug Dosing ml/min Est GFR ( Amer) ml/min Est GFR (Non-Af Amer) ml/min BUN/Creatinine Ratio (10-20) Glucose (70-99) mg/dl POC Glucose 160 H (70-99) mg/dl Calcium (8.5-10.1) mg/dl Medications Administered Current Inpatient Medications Acetaminophen (Acetaminophen 500 Mg Tab) 1,000 mg PO Q8H [facility] Stop: 11/21/20 20:59 Last Admin: 10/29/20 13:05 Dose: 1,000 mg Documented by: Aspirin (Aspirin 81 Mg Ectab) 81 mg PO DAILY [facility] Stop: 11/18/20 08:59 Last Admin: 10/29/20 08:38 Dose: 81 mg Documented by: Atorvastatin Calcium (Atorvastatin 40 Mg Tab) 40 mg PO DAILY MART Stop: 11/18/20 08:59 Last Admin: 10/29/20 08:38 Dose: 40 mg Documented by: Clopidogrel Bisulfate (Clopidogrel Bisulfate 75 Mg Tab) 75 mg PO DAILY MART Stop: 11/18/20 08:59 Last Admin: 10/29/20 08:38 Dose: 75 mg Documented by: Dextrose (Dextrose 50% 50 Ml Syringe) 25 - 50 ml IV UD PRN; Protocol PRN Reason: Hypoglycemia Protocol Stop: 11/17/20 23:14 Glucagon (Glucagon For Inj 1 Mg Vial) 1 mg IM UD PRN; Protocol PRN Reason: Hypoglycemia Protocol Stop: 11/17/20 23:14 Glucose (Glucose 40% Gel 15 Gm Tube) 15 - 30 gm PO UD PRN; Protocol PRN Reason: Hypoglycemia Protocol Stop: 11/17/20 23:14 Glucose (Glucose 10 Tabs/Tube) 4 - 8 tabs PO UD PRN; Protocol PRN Reason: Hypoglycemia Protocol Stop: 11/17/20 23:14 Heparin Sodium (Porcine) (Heparin Sod 5,000 Unit/0.5 Ml Vial) 5,000 units SQ Q12 [facility] Stop: 11/18/20 20:59 Last Admin: 10/29/20 08:39 Dose: 5,000 units Documented by: Ceftriaxone Sodium 2,000 mg/ (Dextrose) 70 mls @ 100 mls/hr IV Q24H [facility]; Protocol Stop: 12/02/20 21:59 Last Infusion: 10/28/20 22:40 Dose: Infused Documented by: Daptomycin 200 mg/ Syringe 4 mls @ 2 mls/min IV Q24H [facility]; Protocol Stop: 12/08/20 15:59 Last Admin: 10/29/20 16:06 Dose: 2 mls/min Documented by: Insulin Aspart (Insulin Aspart 100 Units/Ml 3 Ml Pen) 0 units SC ACHS [facility]; Protocol Stop: 11/22/20 16:29 Last Admin: 10/29/20 13:04 Dose: 17 units Documented by: Insulin Glargine (Insulin Glargine Solostar 100 Units/Ml 3 Ml Pen) 0 units SC DAILY [facility]; Protocol Stop: 11/25/20 08:59 Last Admin: 10/29/20 08:42 Dose: 70 units Documented by: Insulin Glargine (Insulin Glargine Solostar 100 Units/Ml 3 Ml Pen) 0 units SC HS [facility]; Protocol Stop: 11/28/20 20:59 Lisinopril (Lisinopril 20 Mg Tab) 20 mg PO DAILY [facility] Stop: 11/18/20 08:59 Last Admin: 10/29/20 08:39 Dose: 20 mg Documented by: Metoprolol Succinate (Metoprolol Succ 50mg Ext Rel Tab) 50 mg PO DAILY [facility] Stop: 11/18/20 08:59 Last Admin: 10/29/20 08:39 Dose: 50 mg Documented by: Metoprolol Tartrate (Metoprolol Tartrate 1 Mg/Ml Vial) 2.5 mg IV Q6 PRN PRN Reason: SBP > 160 Stop: 11/18/20 11:59 Last Admin: 10/28/20 23:34 Dose: 2.5 mg Documented by: Miscellaneous (Carbohydrates For Hypoglycemia ) 15 - 30 gm PO PRN PRN PRN Reason: Hypoglycemia Treatment Stop: 11/17/20 23:14 Miscellaneous Information (Pharmacy Glycemic Mgmt Consult) 1 ea N/A UD PRN PRN Reason: Consult Stop: 11/18/20 01:08 Miscellaneous Information (Daptomycin Consult Active) 1 ea N/A UD PRN PRN Reason: Consult Stop: 11/26/20 14:59 Morphine Sulfate (Morphine Sulfate 2 Mg/Ml Carp) 2 mg IV Q4H PRN PRN Reason: severe pain, pre-turning Stop: 11/02/20 08:56 Last Admin: 10/26/20 03:05 Dose: 2 mg Documented by: Nystatin (Nystatin Powder 15gm Btl) 1 appln EXT BID PRN PRN Reason: Affected Skin Folds Stop: 11/18/20 02:18 Oxycodone HCl (Oxycodone Hcl Ir 5 Mg Tab (Immediate Release)) 5 mg PO Q4H PRN PRN Reason: MODERATE Pain (4,5,6) & Pre PT Stop: 11/08/20 18:29 Last Admin: 10/28/20 22:50 Dose: 5 mg Documented by: Oxycodone HCl (Oxycodone Hcl Ir 5 Mg Tab (Immediate Release)) 10 mg PO Q4H PRN PRN Reason: SEVERE Pain (7,8,9,10) Stop: 11/08/20 18:29 Last Admin: 10/29/20 11:01 Dose: 10 mg Documented by: Polyethylene Glycol (Polyethylene (Miralax) 17 Gm Pack) 17 gm PO DAILY [facility] Stop: 11/28/20 11:29 Last Admin: 10/29/20 12:01 Dose: 17 gm Documented by: Simethicone (Simethicone 40 Mg/0.6 Ml 30ml) 40 mg PO Q4H PRN PRN Reason: Gas Retention Stop: 11/28/20 14:53 Last Admin: 10/29/20 16:03 Dose: 40 mg Documented by: Resident Activity Tracking Resident Involvement: Resident Care Provided Care Provided: Adult Hospital Medicine (1) DKA (diabetic ketoacidosis) Diabetes mellitus complication detail: without coma Diabetes mellitus type: other specified (including SALO) Qualified Code(s): E13.10 - Other specified diabetes mellitus with ketoacidosis without coma (2) Sepsis Sepsis acute organ dysfunction status: with acute organ dysfunction Sepsis type: sepsis due to unspecified organism Severe sepsis acute organ dysfunction type: encephalopathy Severe sepsis shock status: without septic shock Qualified Code(s): A41.9 - Sepsis, unspecified organism; R65.20 - Severe sepsis without septic shock; G93.40 - Encephalopathy, unspecified
[2020-10-29] MEDS: ASPIRIN 81 MG ECTAB PO SCH (08:38)
[2020-10-29] MEDS: CLOPIDOGREL BISULFATE 75 MG TAB PO SCH (08:38)
[2020-10-29] MEDS: ATORVASTATIN 40 MG TAB PO SCH (08:38)
[2020-10-29] MEDS: lisinopril 20 MG TAB PO SCH (08:39)
[2020-10-29] MEDS: HEPARIN SOD 5,000 UNIT/0.5 ML VIAL SQ SCH ×2 (08:39→21:02)
[2020-10-29] MEDS: METOPROLOL SUCC 50MG EXT REL TAB PO SCH (08:39)
[2020-10-29] MEDS: INSULIN ASPART 100 UNITS/ML 3 ML PEN SC SCH ×4 (08:40→21:03)
[2020-10-29] MEDS: INSULIN GLARGINE SOLOSTAR 100 UNITS/ML 3 ML PEN SC SCH ×2 (08:42→21:04)
--- NOTE | 2020-10-29 09:06 | Orthopedic Progress Note ---
Date of Service October 29, 2020 Assessment & Plan (1) Status post amputation of leg: POD4 uncomplicated progress with wound healing from through knee amputation due to deep soft tissue infection. Distal ulcer is healing. - Continue abx coverage. Will need 6 weeks abx coverage from DOS. Consider transition to oral when WBC normalizes. - Dressing: daily dressing change or as needed. May lay residual limb in the posterior splint as needed for comfort and protection of residual limb. She preferred to have it off today - left at bedside - VTE ppx: per primary, chronic ASA + Plavix - Pain control per primary - Call with questions. Dispo: Need decrease leukocytosis and transition to oral abx before transition to next level of care. Will need amputation care at next level. Subjective Reported that she was in pain. I removed the splint and 'it feels better.' Tolerated a dressing change very well. Only other complaint was 'gas pain.' Review of Systems All systems reviewed & are unremarkable except as noted in HPI & below. Physical Exam LLE: Dressing taken down. Wound well approximated without any erythema or romy a. Drain site healing over. The ulcer on the distal residual limb is now dry. Tolerated palpation of the limb well. Compartments are soft. No fluctuance. No compress-able drainage from incision, ulcer, nor drain site. Constitutional WD/WN, vitals as above no acute distress and not intoxicated appearing Respiratory normal respiratory effort; no labored breathing Cardiovascular Extremities: normal capillary refill Results & Data Results & Data Laboratory Results WBC decreasing. Diagnostic Findings . PG Care Time/CCT Total # of Minutes Spent Total Time Spent with Patient: Total time spent is greater than 50% in coordination of care (as documented) at patient's floor/unit and/or counseling patient: Coding Level of Care Code 87175 Post Operative Follow-Up Diagnoses Status post amputation of leg Z89.619
[2020-10-29] MEDS: oxyCODONE HCL IR 5 MG TAB (IMMEDIATE RELEASE) PO PRN (11:01)
[2020-10-29] MEDS ORDERED: FAMOTIDINE 10 MG TABLET PO ONE (11:23)
[2020-10-29] MEDS: POLYETHYLENE (MIRALAX) 17 GM PACK PO SCH (12:01)
--- NOTE | 2020-10-29 14:38 | Pharmacy Report ---
Pharmacy Glycemic Short Note 2 - Date of Service October 29, 2020 - Glycemic Short BSG Results (Last 24 hours): 10/28/20 10/28/20 10/29/20 16:43 19:56 00:37 POC Glucose 113 H 160 H 220 H 10/29/20 10/29/20 07:19 11:51 POC Glucose 261 H 199 H OUTPATIENT ANTIDIABETIC REGIMEN: * NovoLog 8 units with meals * Lantus 50 units HS (confirmed w/ patient's and updated med rec) * Metformin 500mg PO BID * A1c: 12.9% ASSESSMENT: 10/29/20: * Pt has received 137 units of insulin over the past 24hrs * 65 units of basal with Lantus * 72 units of bolus with NovoLog * BSGs ranged from 113 - 261 mg/dL * Fasting BSG remains above goal, continue to titrate Lantus up and add HS dose for BSG > 140mg/dl * Post prandials improving, continue CF/CR. 10/28/20: * Pt has received 133 units of insulin over the past 24hrs * 65 units of basal with Lantus * 68 units of bolus with NovoLog * BSGs ranged from 183 - 274 mg/dL * Fasting BSG remains above goal, continue to titrate Lantus up * Post prandials elevated all day yesterday, tighten CF/CR. 10/27/20: * Pt has received 106 units of insulin over the past 24hrs * 65 units of basal with Lantus * 41 units of bolus with NovoLog * BSGs ranged from 96 - 219 mg/dL * Fasting BSG remains above goal but is trending downward. Lantus dose was just increased yesterday. Since improvement is seen, will continue same dose for now * Post prandials fluctuate. Lunch BSG appears to always be the highest. Patient tends to eat a late breakfast, therefore we are not seeing effect of AM Novolog at the time of lunch BSG check. I will not change novolog parameters since both dinner and HS BSG are at/below goal. 10/25/20: * Pt has received 142 units of insulin over the past 24hrs (45% increase compared to 10/23) * 55 units of basal with Lantus * 87 units of bolus with NovoLog * BSGs ranged from 197 - 270 mg/dL * Fasting BSG is above goal. Will increase basal insulin starting tomorrow. * Post prandial elevation continues. Tighten Novolog CF/CR. Anticipate better control today per patient is NPO for Lilly TEJAS. 10/23/20 * BSGs yesterday were [phone] and overnight were 200-151 mg/dL. Fasting BSG was 132 mg/dL. * Increase basal insulin by 10% to 55 units as fasting trending up slightly. * Tighten Novolog since BSGs trend upwards throughout the day. 10/22/20 * BSGs yesterday were [phone] and overnight were 242-140 mg/dL. Fasting BSG was 75 mg/dL. * Held AM Lantus until BSG rebounded at lunchtime (wanted to ensure patient's BSGs did not continue to trend downwards). * Give full daily dose in AM. Give 50 units (20% reduction due to hypoglycemia) * Tighten Novolog since BSGs trend upwards throughout the day. PLAN FOR INPATIENT GLYCEMIC CONTROL: * Hold outpatient oral diabetes medications * Basal insulin -increase * Lantus 65-70 units daily (70 units for BSG > 140 mg/dL) * 20 units HS for BSG> 140mg/dl * Bolus insulin * NovoLog ACHS * Goal range 110-140 mg/dL * Correction factor: 10 mg/dL/unit * Carb ratio: 2.5 g CHO/unit PLAN FOR DISCHARGE: * A1c of 12.9 % (10/19/20) is above goal * Consider increase in insulin dosing on discharge * Lantus 65 units SQ once daily * Novolog 12 units TID with meals (hold novolog if meal is skipped) PLUS sliding scale for correction
[2020-10-29] MEDS: SIMETHICONE 40 MG/0.6 ML 30ML PO PRN (16:03)
[2020-10-29] MEDS: DAPTOmycin 200 MG in SYRINGE 0 ML IV SCH (16:06)
[2020-10-29 17:02] LABS: Basophils # (auto) 0.01 K/uL (0-0.2); Basophils % (auto) 0.1 %; Hematocrit (blood only) 25.9 % (37-47); Hemoglobin 8.4 g/dL (12.0-16.0); Immature Granulocytes # (auto) 0.06 K/uL (0.00-0.02); Immature Granulocytes % (auto) 0.4 %; Lymphocytes # (auto) 3.89 K/uL (1.2-3.4); Lymphocytes % (auto) 26.5 %; Mean Corpuscular Hemoglobin 30.5 pg (25-34); Mean Corpuscular Hgb Conc 32.4 g/dL (32-36); Mean Corpuscular Volume 94.2 fL (80-100); Mean Platelet Volume 7.6 fL (7.4-10.4); Monocytes # (auto) 1.13 K/uL (0.11-0.59); Monocytes % (auto) 7.7 %; Neutrophils # (auto) 9.27 K/uL (1.4-6.5); Neutrophils % (auto) 63.3 %; Platelet Count 590 K/uL (130-400); RDW Coefficient of Variation 13.9 % (11.5-14.5); RDW Standard Deviation 46.6 fL (36.4-46.3); Red Blood Count 2.75 M/uL (4.2-5.4); White Blood Count 14.66 K/uL (4.8-10.8)
[2020-10-29 17:21] LABS: BUN Creatinine Ratio 37.9 (10-20); Creatinine Clr Calc Pharmacy 141.3 ml/min; Est GFR (African American) 140.8 ml/min; Est GFR (Non-African American) 121.4 ml/min; Potassium 4.1 mmol/L (3.5-5.1)
[2020-10-29] MEDS: cefTRIAXone SODIUM 2,000 MG in DEXTROSE 5% 50 ML IV SCH (21:05)
[2020-10-29] MEDS: METOPROLOL TARTRATE 1 MG/ML VIAL IV PRN (21:22)
[2020-10-30] MEDS: oxyCODONE HCL IR 5 MG TAB (IMMEDIATE RELEASE) PO PRN ×2 (01:32→13:41)
[2020-10-30] MEDS: MoRPHine SULFATE 2 MG/ML CARP IV PRN (03:43)
[2020-10-30] MEDS: ACETAMINOPHEN 500 MG TAB PO SCH ×3 (05:01→20:48)
[2020-10-30] MEDS: ASPIRIN 81 MG ECTAB PO SCH (08:03)
[2020-10-30] MEDS: POLYETHYLENE (MIRALAX) 17 GM PACK PO SCH (08:04)
[2020-10-30] MEDS: CLOPIDOGREL BISULFATE 75 MG TAB PO SCH (08:04)
[2020-10-30] MEDS: METOPROLOL SUCC 50MG EXT REL TAB PO SCH (08:04)
[2020-10-30] MEDS: ATORVASTATIN 40 MG TAB PO SCH (08:04)
[2020-10-30] MEDS: HEPARIN SOD 5,000 UNIT/0.5 ML VIAL SQ SCH ×2 (08:04→20:49)
[2020-10-30] MEDS: INSULIN GLARGINE SOLOSTAR 100 UNITS/ML 3 ML PEN SC SCH ×2 (08:06→20:59)
[2020-10-30] MEDS: lisinopril 20 MG TAB PO SCH (08:06)
[2020-10-30] MEDS: INSULIN ASPART 100 UNITS/ML 3 ML PEN SC SCH ×4 (08:07→21:00)
[2020-10-30] MEDS: SIMETHICONE 40 MG/0.6 ML 30ML PO PRN (09:29)
--- NOTE | 2020-10-30 09:48 | Hospitalist Progress Note ---
Date of Service October 30, 2020 Assessment & Plan (1) Diabetic wet gangrene of the foot: Plan: CT showing soft tissue ulcer of the dorsal hindfoot with subcutaneous emphysema and cellulitis changes, as well as cortical irregularity with associated lucencies of the dorsal aspect of the posterior calcaneus compatible with osteomyelitis. Ceftriaxone per sensitivities of wound culture growing providencia rettgeri, treatment since 10/18. Ortho consulted following recs, kalli mireles performed 10/25/20. Consulted wound care appreciate recs. Febrile overnight on 10/23/20, blood cultures re-drawn, NGTD 10/25/20. Ordered wound cultures 10/25/20 currently gram negative enterococcus faecalis and Proteus Mirabilis, both sensitive to ampicillin, consider augmentin as outpt PO abx. -on ceftriaxone and daptomycin, Pharmacy recommended switching to Unasyn 3000mg Q6H for IV and Augmentin 875-125mb BID for oral. If WBC count falls enough by tomorrow we will transition to oral, otherwise we will change IV abx to Unasyn. -monitor CBC, BMP, last WBC 14.66 (from 16.77) -on acetaminophen and oxycodone PRN for pain -heparin, aspirin plavix for anticoagulation (2) Sepsis: Plan: see above (3) Decubitus ulcer of left heel: Plan: see above (4) DKA (diabetic ketoacidosis): Plan: A1C 12.9 on 10/19 indicating poory controlled DM. Likely complicated by social factors, is primary manager of care. Needs education regarding DM management. Outpt Regimen: novolog achs, Lantus 50 units, BID Metformin BID. Glycemic CX placed following recs - current blood glucose 134 - currently managed with novolog, lantus (5) Cellulitis: Plan: resolved (6) Acute metabolic encephalopathy: Plan: resolved Plan: (7) Stroke: - Hx significant chronic R MCA stroke - Continue home statin, aspirin and clopidogrel (8) HTN/HLD - continue home lisinopril, metoprolol, and statin - BP 142/79 may be secondary to hospitalization or post surgery status or pain (9) Varicella zoster (back): - completed course valacyclovir QID for 7 days (10/20 - 10/27), rash is much improved (10) PT/OT - seen by PT/OT (11) Anemia Last Hgb 8.4 likely due to post surgery status (12) Elevated Platelets Last platelet 590 likely reactive to surgery FENa: [] Code Status: [DNR/DNI] DVT PPX: [herapin, aspirin, plavix] PT/OT: [ordered] Case Management: [inpt rehab] Dispo: [] Dina Sky PGY 1, FCM Admission and Anticipated Discharge Date Admission Date: October 18, 2020 Supervising Physician Co-Signing Physician Notes I also saw the patient and confirmed polanco portions of the history and physical examination. I agree with the impression and plan as noted in the resident documentation. Exam 142/79, 88, 18, 36.9, 95% on room air Pleasant. Alert. Heart regular rate and rhythm. Lungs are clear. Data No lab draw today A left leg culture dated 10/25/2020 and a left foot culture dated 10/25/2020 both demonstrate Enterococcus faecalis and Proteus Impression and plan Heel ulcer osteomyelitis Postop day #2, below the knee amputation Leukocytosis Continue ceftriaxone and daptomycin; discussed switching to Unasyn per pharmacy, but hopefully will be able to just switch to oral tomorrow assuming leukocytosis continues to downtrend. If decision made to continue IV antibiotics after tomorrow, would then recommend changing to Unasyn Disposition [facility] facility for physical therapy, with hopeful transition to home Type 2 diabetes, uncontrolled Glycemic consult Anemia, postoperative Thrombocytosis, reactive CBC in a.m. Else see resident documentation as noted. Subjective 50yo Female here for heel ulcer osteomyelitis had BKA 10/25/20 currently day 5 postop. Ortho is following, they want to transition to oral abx once WBC go down need 6 wk coverage from DOS, wound dressing changed. Patient was seen at bedside, slept ate well voiding normally. Aguilar is present. She complained of back pain and itching, which improved when the nurse lowered her bed. Case management has contacted her , patient agrees she needs inpatient rehab after hospitalization for her leg. Currently awaiting placement. Bloodwork will be delayed until tomorrow as patient would like less bloodwork done. Contacted pharmacy, they recommended Unasyn to replace IV antibiotics and Augmentin for oral Abx. PMH: HTN, HLD, IDDM, PVD, CVA Review of Systems Constitutional: no fever and no chills Ear, Nose, Mouth, Throat: no ear pain, no hearing loss, no dizziness, no change in voice and no dysphagia Respiratory: no cough and no dyspnea Cardiovascular: no chest pain and no palpitations Gastrointestinal: no abdominal pain, no nausea, no vomiting, no constipation and no diarrhea/loose stools Musculoskeletal: no swelling Integumentary: Itchy on left shoulder Physical Exam Constitutional: + obese and cooperative Eyes: PERRL, conjunctivae normal, anicteric sclerae Respiratory: normal respiratory effort, lungs clear to auscultation normal respiratory effort Auscultation: lungs clear to auscultation bilaterally Cardiovascular: RRR, no murmur, no edema Heart Sounds: normal S1 and normal S2 Extremities: no edema Gastrointestinal (Abdomen): normal bowel sounds, soft, nontender, no hepatosplenomegaly Musculoskeletal: Extremities: + amputation noted Skin: Peeling skin on left shoulder. Shingles rash on right back healing well Results & Data Results & Data ([facility]) Vital Signs (Past 12 Hours) Vital Signs Temp Pulse Pulse Resp BP Pulse Ox 10/30/20 07:34 37.2 C 92 H 16 177/92 H 95 10/30/20 07:33 95 H 10/30/20 02:49 36.6 C 96 H 16 149/91 H 98 10/30/20 00:59 90 10/29/20 22:48 144/81 H 10/29/20 22:00 36.9 C 91 H 18 164/87 H 93 Laboratory Results 10/30/20 10/30/20 10/30/20 Range/Units 16:43 11:25 07:33 POC Glucose 134 H 240 H 259 H (70-99) mg/dl 10/29/20 Range/Units 20:17 POC Glucose 215 H (70-99) mg/dl Medications Administered Current Inpatient Medications Acetaminophen (Acetaminophen 500 Mg Tab) 1,000 mg PO Q8H [facility] Stop: 11/21/20 20:59 Last Admin: 10/30/20 13:42 Dose: 1,000 mg Documented by: Aspirin (Aspirin 81 Mg Ectab) 81 mg PO DAILY [facility] Stop: 11/18/20 08:59 Last Admin: 10/30/20 08:03 Dose: 81 mg Documented by: Atorvastatin Calcium (Atorvastatin 40 Mg Tab) 40 mg PO DAILY [facility] Stop: 11/18/20 08:59 Last Admin: 10/30/20 08:04 Dose: 40 mg Documented by: Clopidogrel Bisulfate (Clopidogrel Bisulfate 75 Mg Tab) 75 mg PO DAILY [facility] Stop: 11/18/20 08:59 Last Admin: 10/30/20 08:04 Dose: 75 mg Documented by: Dextrose (Dextrose 50% 50 Ml Syringe) 25 - 50 ml IV UD PRN; Protocol PRN Reason: Hypoglycemia Protocol Stop: 11/17/20 23:14 Glucagon (Glucagon For Inj 1 Mg Vial) 1 mg IM UD PRN; Protocol PRN Reason: Hypoglycemia Protocol Stop: 11/17/20 23:14 Glucose (Glucose 40% Gel 15 Gm Tube) 15 - 30 gm PO UD PRN; Protocol PRN Reason: Hypoglycemia Protocol Stop: 11/17/20 23:14 Glucose (Glucose 10 Tabs/Tube) 4 - 8 tabs PO UD PRN; Protocol PRN Reason: Hypoglycemia Protocol Stop: 11/17/20 23:14 Heparin Sodium (Porcine) (Heparin Sod 5,000 Unit/0.5 Ml Vial) 5,000 units SQ Q12 [facility] Stop: 11/18/20 20:59 Last Admin: 10/30/20 08:04 Dose: 5,000 units Documented by: Ceftriaxone Sodium 2,000 mg/ (Dextrose) 70 mls @ 100 mls/hr IV Q24H [facility]; Protocol Stop: 12/02/20 21:59 Last Infusion: 10/29/20 22:02 Dose: Infused Documented by: Daptomycin 200 mg/ Syringe 4 mls @ 2 mls/min IV Q24H [facility]; Protocol Stop: 12/08/20 15:59 Last Admin: 10/30/20 17:12 Dose: 2 mls/min Documented by: Insulin Aspart (Insulin Aspart 100 Units/Ml 3 Ml Pen) 0 units SC ACHS [facility]; Protocol Stop: 11/22/20 16:29 Last Admin: 10/30/20 17:13 Dose: 15 units Documented by: Insulin Glargine (Insulin Glargine Solostar 100 Units/Ml 3 Ml Pen) 0 units SC DAILY [facility]; Protocol Stop: 11/25/20 08:59 Last Admin: 10/30/20 08:06 Dose: 80 units Documented by: Insulin Glargine (Insulin Glargine Solostar 100 Units/Ml 3 Ml Pen) 0 units SC HS [facility]; Protocol Stop: 11/28/20 20:59 Last Admin: 10/29/20 21:04 Dose: 20 units Documented by: Lisinopril (Lisinopril 20 Mg Tab) 20 mg PO DAILY [facility] Stop: 11/18/20 08:59 Last Admin: 10/30/20 08:06 Dose: 20 mg Documented by: Metoprolol Succinate (Metoprolol Succ 50mg Ext Rel Tab) 50 mg PO DAILY [facility] Stop: 11/18/20 08:59 Last Admin: 10/30/20 08:04 Dose: 50 mg Documented by: Metoprolol Tartrate (Metoprolol Tartrate 1 Mg/Ml Vial) 2.5 mg IV Q6 PRN PRN Reason: SBP > 160 Stop: 11/18/20 11:59 Last Admin: 10/29/20 21:22 Dose: 2.5 mg Documented by: Miscellaneous (Carbohydrates For Hypoglycemia ) 15 - 30 gm PO PRN PRN PRN Reason: Hypoglycemia Treatment Stop: 11/17/20 23:14 Miscellaneous Information (Pharmacy Glycemic Mgmt Consult) 1 ea N/A UD PRN PRN Reason: Consult Stop: 11/18/20 01:08 Miscellaneous Information (Daptomycin Consult Active) 1 ea N/A UD PRN PRN Reason: Consult Stop: 11/26/20 14:59 Morphine Sulfate (Morphine Sulfate 2 Mg/Ml Carp) 2 mg IV Q4H PRN PRN Reason: severe pain, pre-turning Stop: 11/02/20 08:56 Last Admin: 10/30/20 03:43 Dose: 2 mg Documented by: Nystatin (Nystatin Powder 15gm Btl) 1 appln EXT BID PRN PRN Reason: Affected Skin Folds Stop: 11/18/20 02:18 Oxycodone HCl (Oxycodone Hcl Ir 5 Mg Tab (Immediate Release)) 5 mg PO Q4H PRN PRN Reason: MODERATE Pain (4,5,6) & Pre PT Stop: 11/08/20 18:29 Last Admin: 10/30/20 13:41 Dose: 5 mg Documented by: Oxycodone HCl (Oxycodone Hcl Ir 5 Mg Tab (Immediate Release)) 10 mg PO Q4H PRN PRN Reason: SEVERE Pain (7,8,9,10) Stop: 11/08/20 18:29 Last Admin: 10/29/20 11:01 Dose: 10 mg Documented by: Polyethylene Glycol (Polyethylene (Miralax) 17 Gm Pack) 17 gm PO DAILY [facility] Stop: 11/28/20 11:29 Last Admin: 10/30/20 08:04 Dose: 17 gm Documented by: Simethicone (Simethicone 40 Mg/0.6 Ml 30ml) 40 mg PO Q4H PRN PRN Reason: Gas Retention Stop: 11/28/20 14:53 Last Admin: 10/30/20 09:29 Dose: 40 mg Documented by: Resident Activity Tracking Resident Involvement: Resident Care Provided Care Provided: Adult Hospital Medicine (1) DKA (diabetic ketoacidosis) Diabetes mellitus complication detail: without coma Diabetes mellitus type: other specified (including SALO) Qualified Code(s): E13.10 - Other specified diabetes mellitus with ketoacidosis without coma (2) Sepsis Sepsis acute organ dysfunction status: with acute organ dysfunction Sepsis type: sepsis due to unspecified organism Severe sepsis acute organ dysfunction type: encephalopathy Severe sepsis shock status: without septic shock Qualified Code(s): A41.9 - Sepsis, unspecified organism; R65.20 - Severe sepsis without septic shock; G93.40 - Encephalopathy, unspecified
--- NOTE | 2020-10-30 10:47 | Pharmacy Report ---
Pharmacy Glycemic Short Note 2 - Date of Service October 30, 2020 - Glycemic Short BSG Results (Last 24 hours): 10/29/20 10/29/20 10/29/20 11:51 16:49 17:19 Glucose 122 H POC Glucose 199 H 125 H 10/29/20 10/30/20 20:17 07:33 Glucose POC Glucose 215 H 259 H OUTPATIENT ANTIDIABETIC REGIMEN: * NovoLog 8 units with meals * Lantus 50 units HS (confirmed w/ patient's and updated med rec) * Metformin 500mg PO BID * A1c: 12.9% ASSESSMENT: 10/30/20: * Pt has received 159 units of insulin over the past 24hrs * 90 units of basal with Lantus * 69 units of bolus with NovoLog * BSGs ranged from 125-259 mg/dL * Fasting BSG remains above goal, despite significant increase in Lantus, continue to titrate Lantus up in AM and continue HS dose for BSG >140 * Tighten CF/CR 10/29/20: * Pt has received 137 units of insulin over the past 24hrs * 65 units of basal with Lantus * 72 units of bolus with NovoLog * BSGs ranged from 113 - 261 mg/dL * Fasting BSG remains above goal, continue to titrate Lantus up and add HS dose for BSG > 140mg/dl * Post prandials improving, continue CF/CR. 10/28/20: * Pt has received 133 units of insulin over the past 24hrs * 65 units of basal with Lantus * 68 units of bolus with NovoLog * BSGs ranged from 183 - 274 mg/dL * Fasting BSG remains above goal, continue to titrate Lantus up * Post prandials elevated all day yesterday, tighten CF/CR. 10/27/20: * Pt has received 106 units of insulin over the past 24hrs * 65 units of basal with Lantus * 41 units of bolus with NovoLog * BSGs ranged from 96 - 219 mg/dL * Fasting BSG remains above goal but is trending downward. Lantus dose was just increased yesterday. Since improvement is seen, will continue same dose for now * Post prandials fluctuate. Lunch BSG appears to always be the highest. Patient tends to eat a late breakfast, therefore we are not seeing effect of AM NovoLog at the time of lunch BSG check. I will not change NovoLog parameters since both dinner and HS BSG are at/below goal. 10/25/20: * Pt has received 142 units of insulin over the past 24hrs (45% increase compared to 10/23) * 55 units of basal with Lantus * 87 units of bolus with NovoLog * BSGs ranged from 197 - 270 mg/dL * Fasting BSG is above goal. Will increase basal insulin starting tomorrow. * Post prandial elevation continues. Tighten NovoLog CF/CR. Anticipate better control today per patient is NPO for L BKA. 10/23/20 * BSGs yesterday were [phone] and overnight were 200-151 mg/dL. Fasting BSG was 132 mg/dL. * Increase basal insulin by 10% to 55 units as fasting trending up slightly. * Tighten Novolog since BSGs trend upwards throughout the day. 10/22/20 * BSGs yesterday were [phone] and overnight were 242-140 mg/dL. Fasting BSG was 75 mg/dL. * Held AM Lantus until BSG rebounded at lunchtime (wanted to ensure patient's BSGs did not continue to trend downwards). * Give full daily dose in AM. Give 50 units (20% reduction due to hypoglycemia) * Tighten NovoLog since BSGs trend upwards throughout the day. PLAN FOR INPATIENT GLYCEMIC CONTROL: * Hold outpatient oral diabetes medications * Basal insulin -increase * Lantus 70-80 units daily (80 units for BSG > 140 mg/dL) * 20 units HS for BSG > 140mg/dl * Bolus insulin -tighten CF/CR * NovoLog ACHS * Goal range 110-140 mg/dL * Correction factor: 8 mg/dL/unit * Carb ratio: 2.5 g CHO/unit PLAN FOR DISCHARGE: * A1c of 12.9 % (10/19/20) is above goal * Consider increase in insulin dosing on discharge * Lantus 65 units SQ once daily * NovoLog 12 units TID with meals (hold NovoLog if meal is skipped) PLUS sliding scale for correction
[2020-10-30] MEDS: DAPTOmycin 200 MG in SYRINGE 0 ML IV SCH (17:12)
[2020-10-30] MEDS: cefTRIAXone SODIUM 2,000 MG in DEXTROSE 5% 50 ML IV SCH (20:49)
[2020-10-31] MEDS: ACETAMINOPHEN 500 MG TAB PO SCH ×3 (04:47→20:55)
[2020-10-31 08:11] LABS: Basophils # (auto) 0.02 K/uL (0-0.2); Basophils % (auto) 0.1 %; Eosinophils # (auto) 0.23 K/uL (0-0.5); Eosinophils % (auto) 1.7 %; Hematocrit (blood only) 25.5 % (37-47); Hemoglobin 8.2 g/dL (12.0-16.0); Immature Granulocytes # (auto) 0.05 K/uL (0.00-0.02); Immature Granulocytes % (auto) 0.4 %; Lymphocytes # (auto) 3.18 K/uL (1.2-3.4); Mean Corpuscular Hemoglobin 29.5 pg (25-34); Mean Corpuscular Hgb Conc 32.2 g/dL (32-36); Mean Corpuscular Volume 91.7 fL (80-100); Monocytes # (auto) 1.22 K/uL (0.11-0.59); Monocytes % (auto) 8.8 %; Neutrophils # (auto) 9.13 K/uL (1.4-6.5); Platelet Count 645 K/uL (130-400); RDW Coefficient of Variation 13.9 % (11.5-14.5); RDW Standard Deviation 45.2 fL (36.4-46.3); Red Blood Count 2.78 M/uL (4.2-5.4); White Blood Count 13.83 K/uL (4.8-10.8)
[2020-10-31] MEDS: ATORVASTATIN 40 MG TAB PO SCH (08:41)
[2020-10-31] MEDS: POLYETHYLENE (MIRALAX) 17 GM PACK PO SCH ×2 (08:41→08:57)
[2020-10-31] MEDS: ASPIRIN 81 MG ECTAB PO SCH (08:41)
[2020-10-31] MEDS: CLOPIDOGREL BISULFATE 75 MG TAB PO SCH (08:41)
[2020-10-31] MEDS: METOPROLOL SUCC 50MG EXT REL TAB PO SCH (08:41)
[2020-10-31 08:42] LABS: BUN Creatinine Ratio 29.8 (10-20); Calcium 10.4 mg/dl (8.5-10.1); Creatinine Clr Calc Pharmacy 145.7 ml/min; Est GFR (African American) 143.2 ml/min; Est GFR (Non-African American) 123.5 ml/min; Potassium 4.2 mmol/L (3.5-5.1)
[2020-10-31] MEDS: HEPARIN SOD 5,000 UNIT/0.5 ML VIAL SQ SCH ×2 (08:42→20:56)
[2020-10-31] MEDS: lisinopril 20 MG TAB PO SCH (08:42)
[2020-10-31] MEDS: INSULIN ASPART 100 UNITS/ML 3 ML PEN SC SCH ×4 (08:44→21:31)
[2020-10-31] MEDS: INSULIN GLARGINE SOLOSTAR 100 UNITS/ML 3 ML PEN SC SCH ×2 (08:50→21:32)
--- NOTE | 2020-10-31 09:12 | Hospitalist Progress Note ---
Date of Service October 31, 2020 Assessment & Plan (1) Diabetic wet gangrene of the foot: Plan: CT showing soft tissue ulcer of the dorsal hindfoot with subcutaneous emphysema and cellulitis changes, as well as cortical irregularity with associated lucencies of the dorsal aspect of the posterior calcaneus compatible with osteomyelitis. Ceftriaxone per sensitivities of wound culture growing providencia rettgeri, treatment since 10/18. Ortho consulted following recs, kalli mireles performed 10/25/20. Consulted wound care appreciate recs. Febrile overnight on 10/23/20, blood cultures re-drawn, NGTD 10/25/20. Ordered wound cultures 10/25/20 currently gram negative enterococcus faecalis and Proteus Mirabilis, was placed on daptomycin as well. -ceftriaxone and daptomycin discontinued, transitioned to oral augmentin per pharmacy recommendation -monitor CBC, BMP, last WBC 13.83 (<--14.66<-- 16.77) -on acetaminophen and oxycodone PRN for pain -heparin, aspirin plavix for anticoagulation (2) Sepsis: Plan: see above (3) Decubitus ulcer of left heel: Plan: see above (4) DKA (diabetic ketoacidosis): Plan: A1C 12.9 on 10/19 indicating poory controlled DM. 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 Needs education regarding DM management. Outpt Regimen: novolog achs, Lantus 50 units, BID Metformin BID. Glycemic CX placed following recs - current blood glucose 235 - currently managed with novolog, lantus (5) Cellulitis: Plan: resolved (6) Acute metabolic encephalopathy: Plan: resolved Plan: (7) Stroke: - Hx significant chronic R MCA stroke - Continue home statin, aspirin and clopidogrel (8) HTN/HLD - continue home lisinopril, metoprolol, and statin - BP 142/79 may be secondary to hospitalization or post surgery status or pain (9) Varicella zoster (back): - completed course valacyclovir QID for 7 days (10/20 - 10/27), rash is much improved (10) PT/OT - seen by PT/OT, recommended SNF rehab after hospitalization (11) Anemia Last Hgb 8.2 may be due to post surgery status or blood draws, continue to monitor (12) Elevated Platelets Last platelet 645 likely reactive to surgery, continue to monitor FENa: [] Code Status: [DNR/DNI] DVT PPX: [herapin, aspirin, plavix] PT/OT: [ordered] Case Management: [SNF rehab] Dispo: [] Dina Sky Do PGY 1, FCM Admission and Anticipated Discharge Date Admission Date: October 18, 2020 Supervising Physician Co-Signing Physician Notes I personally examined the patient and verified all polanco points of history and exam, discussed case, and agree with decision making with Dr Sky. Seems to be feeling okay overall. No new problems or complaints. Pain seems to be well controlled. Eating is "so-so" Vitals noted, in general she is awake fatigued no distress. HEENT normocephalic atraumatic mucous membranes moist. Breathing unlabored no accessory muscle use good effort. Left leg stump appears clean/dry/intact, no erythema. Gangrenous foot in the context of peripheral vascular disease from longstanding uncontrolled diabetesnow status post amputation. Sepsis appears to have resolved, white count improving, stable for transition to p.o. antibiotics. Anticipate need for rehab. Type 1 diabeteslongstanding poor control, continue glycemic management. 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 Ortho is following, they want to transition to oral abx once WBC go down need 6 wk coverage from DOS, wound dressing changed. Case management has contacted her , patient agrees she needs inpatient rehab after hospitalization for her leg, currenting awaiting placement. Patient was seen at bedside, slept ate well voiding normally. Aguilar is present. Patient understands that she needs bloodwork tomorrow, agrees to allow blood draw. Per nurse her pain is well controlled around 10. PMH: HTN, HLD, IDDM, PVD, CVA Review of Systems Review of Systems: Constitutional: no fever and no chills Ear, Nose, Mouth, Throat: no ear pain, no hearing loss, no dizziness, no change in voice and no dysphagia Respiratory: no cough and no dyspnea Cardiovascular: no chest pain and no palpitations Gastrointestinal: no abdominal pain, no nausea, no vomiting, no constipation and no diarrhea/loose stools Musculoskeletal: no swelling Physical Exam Constitutional: + obese and cooperative Eyes: PERRL, conjunctivae normal, anicteric sclerae Respiratory: normal respiratory effort, lungs clear to auscultation normal respiratory effort Auscultation: lungs clear to auscultation bilaterally Cardiovascular: RRR, no murmur, no edema Heart Sounds: normal S1 and normal S2 Extremities: no edema Gastrointestinal (Abdomen): normal bowel sounds, soft, nontender, no hepatosplenomegaly Musculoskeletal: Extremities: + amputation noted Skin: no rashes Results & Data Results & Data ([facility]) Vital Signs (Past 12 Hours) Vital Signs Temp Pulse Pulse Resp BP Pulse Ox 10/31/20 08:05 36.6 C 94 H 19 143/84 H 96 10/31/20 03:28 36.6 C 93 H 18 139/81 98 10/30/20 23:42 89 10/30/20 22:44 36.7 C 88 18 134/76 94 Laboratory Results 10/31/20 10/31/20 10/31/20 Range/Units 16:37 11:48 07:43 WBC (4.8-10.8) K/uL RBC (4.2-5.4) M/uL Hgb (12.0-16.0) g/dL Hct (37-47) % MCV (80-100) fL MCH (25-34) pg MCHC (32-36) g/dL RDW Std Deviation (36.4-46.3) fL RDW Coeff of Travis (11.5-14.5) % Plt Count (130-400) K/uL MPV (7.4-10.4) fL Immature Gran % (Auto) % Neut % (Auto) % Lymph % (Auto) % [place] % (Auto) % Eos % (Auto) % Baso % (Auto) % Neut # (Auto) (1.4-6.5) K/uL Lymph # (Auto) (1.2-3.4) K/uL [place] # (Auto) (0.11-0.59) K/uL Eos # (Auto) (0-0.5) K/uL Baso # (Auto) (0-0.2) K/uL Immature Gran # (Auto) (0.00-0.02) K/uL Sodium (136-145) mmol/L Potassium (3.5-5.1) mmol/L Chloride (98-107) mmol/L Carbon Dioxide (21-32) mmol/L Anion Gap (3-11) BUN (7-18) mg/dl Creatinine (0.6-1.2) mg/dl Est Cr Clr Drug Dosing ml/min Est GFR ( Amer) ml/min Est GFR (Non-Af Amer) ml/min BUN/Creatinine Ratio (10-20) Glucose (70-99) mg/dl POC Glucose 95 188 H 235 H (70-99) mg/dl Calcium (8.5-10.1) mg/dl 10/31/20 10/31/20 10/30/20 Range/Units 07:32 07:32 20:38 WBC 13.83 H (4.8-10.8) K/uL RBC 2.78 L (4.2-5.4) M/uL Hgb 8.2 L (12.0-16.0) g/dL Hct 25.5 L (37-47) % MCV 91.7 (80-100) fL MCH 29.5 (25-34) pg MCHC 32.2 (32-36) g/dL RDW Std Deviation 45.2 (36.4-46.3) fL RDW Coeff of Travis 13.9 (11.5-14.5) % Plt Count 645 H (130-400) K/uL MPV 8.0 (7.4-10.4) fL Immature Gran % (Auto) 0.4 % Neut % (Auto) 66.0 % Lymph % (Auto) 23.0 % [place] % (Auto) 8.8 % Eos % (Auto) 1.7 % Baso % (Auto) 0.1 % Neut # (Auto) 9.13 H (1.4-6.5) K/uL Lymph # (Auto) 3.18 (1.2-3.4) K/uL [place] # (Auto) 1.22 H (0.11-0.59) K/uL Eos # (Auto) 0.23 (0-0.5) K/uL Baso # (Auto) 0.02 (0-0.2) K/uL Immature Gran # (Auto) 0.05 H (0.00-0.02) K/uL Sodium 134 L (136-145) mmol/L Potassium 4.2 (3.5-5.1) mmol/L Chloride 99 (98-107) mmol/L Carbon Dioxide 30 (21-32) mmol/L Anion Gap 5.0 (3-11) BUN 11 (7-18) mg/dl Creatinine 0.38 L (0.6-1.2) mg/dl Est Cr Clr Drug Dosing 145.7 ml/min Est GFR ( Amer) 143.2 ml/min Est GFR (Non-Af Amer) 123.5 ml/min BUN/Creatinine Ratio 29.8 H (10-20) Glucose 219 H (70-99) mg/dl POC Glucose 198 H (70-99) mg/dl Calcium 10.4 H (8.5-10.1) mg/dl Medications Administered Current Inpatient Medications Acetaminophen (Acetaminophen 500 Mg Tab) 1,000 mg PO Q8H [facility] Stop: 11/21/20 20:59 Last Admin: 10/31/20 12:36 Dose: 1,000 mg Documented by: Amoxicillin/Clavulanate Potassium (Amoxicillin/Clavulanate 875 Mg Tab) 1 tab PO BIDM [facility] Stop: 12/12/20 16:59 Aspirin (Aspirin 81 Mg Ectab) 81 mg PO DAILY [facility] Stop: 11/18/20 08:59 Last Admin: 10/31/20 08:41 Dose: 81 mg Documented by: Atorvastatin Calcium (Atorvastatin 40 Mg Tab) 40 mg PO DAILY [facility] Stop: 11/18/20 08:59 Last Admin: 10/31/20 08:41 Dose: 40 mg Documented by: Clopidogrel Bisulfate (Clopidogrel Bisulfate 75 Mg Tab) 75 mg PO DAILY [facility] Stop: 11/18/20 08:59 Last Admin: 10/31/20 08:41 Dose: 75 mg Documented by: Dextrose (Dextrose 50% 50 Ml Syringe) 25 - 50 ml IV UD PRN; Protocol PRN Reason: Hypoglycemia Protocol Stop: 11/17/20 23:14 Glucagon (Glucagon For Inj 1 Mg Vial) 1 mg IM UD PRN; Protocol PRN Reason: Hypoglycemia Protocol Stop: 11/17/20 23:14 Glucose (Glucose 40% Gel 15 Gm Tube) 15 - 30 gm PO UD PRN; Protocol PRN Reason: Hypoglycemia Protocol Stop: 11/17/20 23:14 Glucose (Glucose 10 Tabs/Tube) 4 - 8 tabs PO UD PRN; Protocol PRN Reason: Hypoglycemia Protocol Stop: 11/17/20 23:14 Heparin Sodium (Porcine) (Heparin Sod 5,000 Unit/0.5 Ml Vial) 5,000 units SQ Q12 [facility] Stop: 11/18/20 20:59 Last Admin: 10/31/20 08:42 Dose: 5,000 units Documented by: Insulin Aspart (Insulin Aspart 100 Units/Ml 3 Ml Pen) 0 units SC ACHS [facility]; Protocol Stop: 11/22/20 16:29 Last Admin: 10/31/20 12:38 Dose: 11 units Documented by: Insulin Aspart (Insulin Aspart 100 Units/Ml 3 Ml Pen) 0 units SC 0000,[id number] [facility]; Protocol Stop: 11/01/20 04:01 Insulin Glargine (Insulin Glargine Solostar 100 Units/Ml 3 Ml Pen) 0 units SC HS [facility]; Protocol Stop: 11/28/20 20:59 Last Admin: 10/30/20 20:59 Dose: 20 units Documented by: Insulin Glargine (Insulin Glargine Solostar 100 Units/Ml 3 Ml Pen) 100 units SC DAILY [facility]; Protocol Stop: 11/30/20 08:59 Last Admin: 10/31/20 08:50 Dose: 100 units Documented by: Lisinopril (Lisinopril 20 Mg Tab) 20 mg PO DAILY [facility] Stop: 11/18/20 08:59 Last Admin: 10/31/20 08:42 Dose: 20 mg Documented by: Metoprolol Succinate (Metoprolol Succ 50mg Ext Rel Tab) 50 mg PO DAILY [facility] Stop: 11/18/20 08:59 Last Admin: 10/31/20 08:41 Dose: 50 mg Documented by: Metoprolol Tartrate (Metoprolol Tartrate 1 Mg/Ml Vial) 2.5 mg IV Q6 PRN PRN Reason: SBP > 160 Stop: 11/18/20 11:59 Last Admin: 10/29/20 21:22 Dose: 2.5 mg Documented by: Miscellaneous (Carbohydrates For Hypoglycemia ) 15 - 30 gm PO PRN PRN PRN Reason: Hypoglycemia Treatment Stop: 11/17/20 23:14 Miscellaneous Information (Pharmacy Glycemic Mgmt Consult) 1 ea N/A UD PRN PRN Reason: Consult Stop: 11/18/20 01:08 Morphine Sulfate (Morphine Sulfate 2 Mg/Ml Carp) 2 mg IV Q4H PRN PRN Reason: severe pain, pre-turning Stop: 11/02/20 08:56 Last Admin: 10/30/20 03:43 Dose: 2 mg Documented by: Nystatin (Nystatin Powder 15gm Btl) 1 appln EXT BID PRN PRN Reason: Affected Skin Folds Stop: 11/18/20 02:18 Oxycodone HCl (Oxycodone Hcl Ir 5 Mg Tab (Immediate Release)) 5 mg PO Q4H PRN PRN Reason: MODERATE Pain (4,5,6) & Pre PT Stop: 11/08/20 18:29 Last Admin: 10/31/20 13:49 Dose: 5 mg Documented by: Oxycodone HCl (Oxycodone Hcl Ir 5 Mg Tab (Immediate Release)) 10 mg PO Q4H PRN PRN Reason: SEVERE Pain (7,8,9,10) Stop: 11/08/20 18:29 Last Admin: 10/31/20 09:50 Dose: 10 mg Documented by: Polyethylene Glycol (Polyethylene (Miralax) 17 Gm Pack) 17 gm PO DAILY [facility] Stop: 11/28/20 11:29 Last Admin: 10/31/20 08:57 Dose: Not Given Documented by: Simethicone (Simethicone 40 Mg/0.6 Ml 30ml) 40 mg PO Q4H PRN PRN Reason: Gas Retention Stop: 11/28/20 14:53 Last Admin: 10/31/20 11:24 Dose: 40 mg Documented by: Resident Activity Tracking Resident Involvement: Resident Care Provided Care Provided: Adult Hospital Medicine (1) DKA (diabetic ketoacidosis) Diabetes mellitus complication detail: without coma Diabetes mellitus type: other specified (including SALO) Qualified Code(s): E13.10 - Other specified diabetes mellitus with ketoacidosis without coma (2) Sepsis Sepsis acute organ dysfunction status: with acute organ dysfunction Sepsis type: sepsis due to unspecified organism Severe sepsis acute organ dysfunction type: encephalopathy Severe sepsis shock status: without septic shock Qualified Code(s): A41.9 - Sepsis, unspecified organism; R65.20 - Severe sepsis without septic shock; G93.40 - Encephalopathy, unspecified
[2020-10-31] MEDS: oxyCODONE HCL IR 5 MG TAB (IMMEDIATE RELEASE) PO PRN ×3 (09:50→22:06)
[2020-10-31] MEDS: SIMETHICONE 40 MG/0.6 ML 30ML PO PRN (11:24)
--- NOTE | 2020-10-31 17:32 | Billing Data ---
Date of Service October 31, 2020 Coding Level of Care Code 52655 Subseq Hosp Care Lvl 2
[2020-10-31] MEDS: AMOXICILLIN/CLAVULANATE 875 MG TAB PO SCH (17:48)
[2020-11-01] MEDS: INSULIN ASPART 100 UNITS/ML 3 ML PEN SC SCH ×6 (00:29→20:57)
[2020-11-01] MEDS: ACETAMINOPHEN 500 MG TAB PO SCH ×3 (06:02→20:00)
[2020-11-01 07:46] LABS: Basophils # (auto) 0.04 K/uL (0-0.2); Basophils % (auto) 0.3 %; Eosinophils # (auto) 0.32 K/uL (0-0.5); Eosinophils % (auto) 2.2 %; Hematocrit (blood only) 24.7 % (37-47); Hemoglobin 8.2 g/dL (12.0-16.0); Immature Granulocytes # (auto) 0.07 K/uL (0.00-0.02); Immature Granulocytes % (auto) 0.5 %; Lymphocytes # (auto) 3.51 K/uL (1.2-3.4); Lymphocytes % (auto) 23.9 %; Mean Corpuscular Hemoglobin 30.7 pg (25-34); Mean Corpuscular Hgb Conc 33.2 g/dL (32-36); Mean Corpuscular Volume 92.5 fL (80-100); Mean Platelet Volume 7.8 fL (7.4-10.4); Monocytes # (auto) 1.11 K/uL (0.11-0.59); Monocytes % (auto) 7.6 %; Neutrophils # (auto) 9.65 K/uL (1.4-6.5); Neutrophils % (auto) 65.5 %; Platelet Count 683 K/uL (130-400); RDW Coefficient of Variation 14.4 % (11.5-14.5); Red Blood Count 2.67 M/uL (4.2-5.4)
[2020-11-01 08:22] LABS: BUN Creatinine Ratio 36.7 (10-20); Calcium 10.5 mg/dl (8.5-10.1); Creatinine Clr Calc Pharmacy 149.6 ml/min; Est GFR (African American) 144.4 ml/min; Est GFR (Non-African American) 124.6 ml/min; Potassium 4.3 mmol/L (3.5-5.1)
[2020-11-01] MEDS: HEPARIN SOD 5,000 UNIT/0.5 ML VIAL SQ SCH ×2 (08:40→21:02)
[2020-11-01] MEDS: lisinopril 20 MG TAB PO SCH (08:41)
[2020-11-01] MEDS: ASPIRIN 81 MG ECTAB PO SCH (08:41)
[2020-11-01] MEDS: METOPROLOL SUCC 50MG EXT REL TAB PO SCH (08:41)
[2020-11-01] MEDS: CLOPIDOGREL BISULFATE 75 MG TAB PO SCH (08:41)
[2020-11-01] MEDS: AMOXICILLIN/CLAVULANATE 875 MG TAB PO SCH ×2 (08:41→17:38)
[2020-11-01] MEDS: ATORVASTATIN 40 MG TAB PO SCH (08:41)
[2020-11-01] MEDS: INSULIN GLARGINE SOLOSTAR 100 UNITS/ML 3 ML PEN SC SCH ×2 (08:43→20:57)
[2020-11-01] MEDS: POLYETHYLENE (MIRALAX) 17 GM PACK PO SCH (08:46)
--- NOTE | 2020-11-01 11:23 | Hospitalist Progress Note ---
Date of Service November 01, 2020 Assessment & Plan (1) Diabetic wet gangrene of the foot: Plan: CT showing soft tissue ulcer of the dorsal hindfoot with subcutaneous emphysema and cellulitis changes, as well as cortical irregularity with associated lucencies of the dorsal aspect of the posterior calcaneus compatible with osteomyelitis. Ceftriaxone per sensitivities of wound culture growing providencia rettgeri, treatment since 10/18. Ortho consulted following recs, mahan chi performed 10/25/20. Consulted wound care appreciate recs. Febrile overnight on 10/23/20, blood cultures re-drawn, NGTD 10/25/20. Ordered wound cultures 10/25/20 currently gram negative enterococcus faecalis and Proteus Mirabilis, was placed on daptomycin as well. IV abx discontinued 10/31/20 and replaced with augmentin per pharmacy recommendation. -monitor CBC, BMP, last WBC 14.7 (<--13.83<--14.66<-- 16.77) -on acetaminophen and oxycodone PRN for pain -heparin, aspirin plavix for anticoagulation (2) Sepsis: Plan: see above (3) Decubitus ulcer of left heel: Plan: see above (4) DKA (diabetic ketoacidosis): Plan: A1C 12.9 on 10/19 indicating poory controlled DM. 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 Needs education regarding DM management. Outpt Regimen: novolog achs, Lantus 50 units, BID Metformin BID. Glycemic CX placed following recs - current blood glucose 166 - currently managed with novolog, lantus (5) Cellulitis: Plan: resolved (6) Acute metabolic encephalopathy: Plan: resolved Plan: (7) Stroke: - Hx significant chronic R MCA stroke - Continue home statin, aspirin and clopidogrel (8) HTN/HLD - continue home lisinopril, metoprolol, and statin - BP 142/79 may be secondary to hospitalization or post surgery status or pain (9) Varicella zoster (back): - completed course valacyclovir QID for 7 days (10/20 - 10/27), rash is much im proved (10) PT/OT - seen by PT/OT, recommended SNF rehab after hospitalization (11) Anemia Last Hgb 8.2 may be due to post surgery status or blood draws, continue to monitor (12) Elevated Platelets Last platelet 683 likely reactive to surgery, continue to monitor FENa: [] Code Status: [DNR/DNI] DVT PPX: [herapin, aspirin, plavix] PT/OT: [ordered] Case Management: [SNF rehab] Dispo: [] Dina Sky Do PGY 1, FCM Admission and Anticipated Discharge Date Admission Date: October 18, 2020 Supervising Physician Co-Signing Physician Notes I personally examined the patient and verified all polanco points of history and exam, discussed case, and agree with decision making with Dr Sky. Overall feeling about the same. Some leg pain, but notes it is tolerable. With change in diet she felt like she likes the food better and maybe ate a little better. Vitals noted, in general she is awake fatigued no distress. HEENT normocephalic atraumatic mucous membranes moist. Breathing unlabored no accessory muscle use good effort. Left leg stump without tracking erythema Gangrenous foot in the context of peripheral vascular disease from longstanding uncontrolled diabetesnow status post amputation. Sepsis appears to have resolved, now on p.o. antibiotics. Slight uptick in white count notedbut no clinical concerns for worsening infection, and other SIRS parameters are stable. Suspect this is just a low and "wobble" in her white count. Type 1 diabeteslongstanding poor control, continue insulin based glycemic management. 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 Ortho is following, they want oral abx 6 wk coverage from DOS, wound dressing changed. Case management has contacted her , patient agrees she needs inpatient rehab after hospitalization for her leg, currenting awaiting placement. Patient was seen at bedside, slept ate well voiding normally with one bout diarrhea. Aguilar is present. Will space blood draws till day after tomorrow. PMH: HTN, HLD, IDDM, PVD, CVA Review of Systems Constitutional: no fever and no chills Ear, Nose, Mouth, Throat: no ear pain, no hearing loss, no dizziness, no change in voice and no dysphagia Respiratory: no cough and no dyspnea Cardiovascular: no chest pain and no palpitations Gastrointestinal: + diarrhea/loose stools; no abdominal pain, no nausea, no vomiting and no constipation Musculoskeletal: no swelling Physical Exam Physical Exam: Heart: RRR, no gallops/murmurs/rubs Lungs: CTA b/l, no wheezes/rales/rhonchi Extremities: R leg elevated in waffle heel with erythema, L foot in new bandages Constitutional: + obese and cooperative Eyes: PERRL, conjunctivae normal, anicteric sclerae Respiratory: normal respiratory effort, lungs clear to auscultation normal respiratory effort Auscultation: lungs clear to auscultation bilaterally Cardiovascular: RRR, no murmur, no edema Heart Sounds: normal S1 and normal S2 Extremities: no edema Gastrointestinal (Abdomen): normal bowel sounds, soft, nontender, no hepatosplenomegaly Musculoskeletal: Extremities: + amputation noted Skin: no rashes Results & Data Results & Data ([facility]) Vital Signs (Past 12 Hours) Vital Signs Temp Pulse Pulse Resp BP Pulse Ox 11/01/20 07:51 37.1 C 99 H 16 125/77 94 11/01/20 07:25 95 H 11/01/20 02:55 36.6 C 95 H 17 128/80 95 Laboratory Results 11/01/20 11/01/20 11/01/20 Range/Units 17:07 11:21 07:31 WBC (4.8-10.8) K/uL RBC (4.2-5.4) M/uL Hgb (12.0-16.0) g/dL Hct (37-47) % MCV (80-100) fL MCH (25-34) pg MCHC (32-36) g/dL RDW Std Deviation (36.4-46.3) fL RDW Coeff of Travis (11.5-14.5) % Plt Count (130-400) K/uL MPV (7.4-10.4) fL Immature Gran % (Auto) % Neut % (Auto) % Lymph % (Auto) % [place] % (Auto) % Eos % (Auto) % Baso % (Auto) % Neut # (Auto) (1.4-6.5) K/uL Lymph # (Auto) (1.2-3.4) K/uL [place] # (Auto) (0.11-0.59) K/uL Eos # (Auto) (0-0.5) K/uL Baso # (Auto) (0-0.2) K/uL Immature Gran # (Auto) (0.00-0.02) K/uL Sodium (136-145) mmol/L Potassium (3.5-5.1) mmol/L Chloride (98-107) mmol/L Carbon Dioxide (21-32) mmol/L Anion Gap (3-11) BUN (7-18) mg/dl Creatinine (0.6-1.2) mg/dl Est Cr Clr Drug Dosing ml/min Est GFR ( Amer) ml/min Est GFR (Non-Af Amer) ml/min BUN/Creatinine Ratio (10-20) Glucose (70-99) mg/dl POC Glucose 79 194 H 193 H (70-99) mg/dl Calcium (8.5-10.1) mg/dl 11/01/20 11/01/20 11/01/20 Range/Units 07:14 07:14 04:18 WBC 14.70 H (4.8-10.8) K/uL RBC 2.67 L (4.2-5.4) M/uL Hgb 8.2 L (12.0-16.0) g/dL Hct 24.7 L (37-47) % MCV 92.5 (80-100) fL MCH 30.7 (25-34) pg MCHC 33.2 (32-36) g/dL RDW Std Deviation 47.0 H (36.4-46.3) fL RDW Coeff of Travis 14.4 (11.5-14.5) % Plt Count 683 H (130-400) K/uL MPV 7.8 (7.4-10.4) fL Immature Gran % (Auto) 0.5 % Neut % (Auto) 65.5 % Lymph % (Auto) 23.9 % [place] % (Auto) 7.6 % Eos % (Auto) 2.2 % Baso % (Auto) 0.3 % Neut # (Auto) 9.65 H (1.4-6.5) K/uL Lymph # (Auto) 3.51 H (1.2-3.4) K/uL [place] # (Auto) 1.11 H (0.11-0.59) K/uL Eos # (Auto) 0.32 (0-0.5) K/uL Baso # (Auto) 0.04 (0-0.2) K/uL Immature Gran # (Auto) 0.07 H (0.00-0.02) K/uL Sodium 133 L (136-145) mmol/L Potassium 4.3 (3.5-5.1) mmol/L Chloride 100 (98-107) mmol/L Carbon Dioxide 28 (21-32) mmol/L Anion Gap 5.0 (3-11) BUN 14 (7-18) mg/dl Creatinine 0.37 L (0.6-1.2) mg/dl Est Cr Clr Drug Dosing 149.6 ml/min Est GFR ( Amer) 144.4 ml/min Est GFR (Non-Af Amer) 124.6 ml/min BUN/Creatinine Ratio 36.7 H (10-20) Glucose 166 H (70-99) mg/dl POC Glucose 135 H (70-99) mg/dl Calcium 10.5 H (8.5-10.1) mg/dl 11/01/20 10/31/20 Range/Units 00:01 21:07 WBC (4.8-10.8) K/uL RBC (4.2-5.4) M/uL Hgb (12.0-16.0) g/dL Hct (37-47) % MCV (80-100) fL MCH (25-34) pg MCHC (32-36) g/dL RDW Std Deviation (36.4-46.3) fL RDW Coeff of Travis (11.5-14.5) % Plt Count (130-400) K/uL MPV (7.4-10.4) fL Immature Gran % (Auto) % Neut % (Auto) % Lymph % (Auto) % [place] % (Auto) % Eos % (Auto) % Baso % (Auto) % Neut # (Auto) (1.4-6.5) K/uL Lymph # (Auto) (1.2-3.4) K/uL [place] # (Auto) (0.11-0.59) K/uL Eos # (Auto) (0-0.5) K/uL Baso # (Auto) (0-0.2) K/uL Immature Gran # (Auto) (0.00-0.02) K/uL Sodium (136-145) mmol/L Potassium (3.5-5.1) mmol/L Chloride (98-107) mmol/L Carbon Dioxide (21-32) mmol/L Anion Gap (3-11) BUN (7-18) mg/dl Creatinine (0.6-1.2) mg/dl Est Cr Clr Drug Dosing ml/min Est GFR ( Amer) ml/min Est GFR (Non-Af Amer) ml/min BUN/Creatinine Ratio (10-20) Glucose (70-99) mg/dl POC Glucose 124 H 88 (70-99) mg/dl Calcium (8.5-10.1) mg/dl Medications Administered Current Inpatient Medications Acetaminophen (Acetaminophen 500 Mg Tab) 1,000 mg PO Q8H [facility] Stop: 11/21/20 20:59 Last Admin: 11/01/20 12:30 Dose: 1,000 mg Documented by: Amoxicillin/Clavulanate Potassium (Amoxicillin/Clavulanate 875 Mg Tab) 1 tab PO BIDM [facility] Stop: 12/12/20 16:59 Last Admin: 11/01/20 17:38 Dose: 1 tab Documented by: Aspirin (Aspirin 81 Mg Ectab) 81 mg PO DAILY [facility] Stop: 11/18/20 08:59 Last Admin: 11/01/20 08:41 Dose: 81 mg Documented by: Atorvastatin Calcium (Atorvastatin 40 Mg Tab) 40 mg PO DAILY [facility] Stop: 11/18/20 08:59 Last Admin: 11/01/20 08:41 Dose: 40 mg Documented by: Clopidogrel Bisulfate (Clopidogrel Bisulfate 75 Mg Tab) 75 mg PO DAILY [facility] Stop: 11/18/20 08:59 Last Admin: 11/01/20 08:41 Dose: 75 mg Documented by: Dextrose (Dextrose 50% 50 Ml Syringe) 25 - 50 ml IV UD PRN; Protocol PRN Reason: Hypoglycemia Protocol Stop: 11/17/20 23:14 Glucagon (Glucagon For Inj 1 Mg Vial) 1 mg IM UD PRN; Protocol PRN Reason: Hypoglycemia Protocol Stop: 11/17/20 23:14 Glucose (Glucose 40% Gel 15 Gm Tube) 15 - 30 gm PO UD PRN; Protocol PRN Reason: Hypoglycemia Protocol Stop: 11/17/20 23:14 Glucose (Glucose 10 Tabs/Tube) 4 - 8 tabs PO UD PRN; Protocol PRN Reason: Hypoglycemia Protocol Stop: 11/17/20 23:14 Heparin Sodium (Porcine) (Heparin Sod 5,000 Unit/0.5 Ml Vial) 5,000 units SQ Q12 [facility] Stop: 11/18/20 20:59 Last Admin: 11/01/20 08:40 Dose: 5,000 units Documented by: Insulin Aspart (Insulin Aspart 100 Units/Ml 3 Ml Pen) 0 units SC ACHS [facility]; Protocol Stop: 11/22/20 16:29 Last Admin: 11/01/20 17:43 Dose: 2 units Documented by: Insulin Glargine (Insulin Glargine Solostar 100 Units/Ml 3 Ml Pen) 0 units SC HS [facility]; Protocol Stop: 11/28/20 20:59 Last Admin: 10/31/20 21:32 Dose: Not Given Documented by: Insulin Glargine (Insulin Glargine Solostar 100 Units/Ml 3 Ml Pen) 100 units SC DAILY [facility]; Protocol Stop: 11/30/20 08:59 Last Admin: 11/01/20 08:43 Dose: 100 units Documented by: Lisinopril (Lisinopril 20 Mg Tab) 20 mg PO DAILY [facility] Stop: 11/18/20 08:59 Last Admin: 11/01/20 08:41 Dose: 20 mg Documented by: Metoprolol Succinate (Metoprolol Succ 50mg Ext Rel Tab) 50 mg PO DAILY [facility] Stop: 11/18/20 08:59 Last Admin: 11/01/20 08:41 Dose: 50 mg Documented by: Metoprolol Tartrate (Metoprolol Tartrate 1 Mg/Ml Vial) 2.5 mg IV Q6 PRN PRN Reason: SBP > 160 Stop: 11/18/20 11:59 Last Admin: 10/29/20 21:22 Dose: 2.5 mg Documented by: Miscellaneous (Carbohydrates For Hypoglycemia ) 15 - 30 gm PO PRN PRN PRN Reason: Hypoglycemia Treatment Stop: 11/17/20 23:14 Miscellaneous Information (Pharmacy Glycemic Mgmt Consult) 1 ea N/A UD PRN PRN Reason: Consult Stop: 11/18/20 01:08 Morphine Sulfate (Morphine Sulfate 2 Mg/Ml Carp) 2 mg IV Q4H PRN PRN Reason: severe pain, pre-turning Stop: 11/02/20 08:56 Last Admin: 10/30/20 03:43 Dose: 2 mg Documented by: Nystatin (Nystatin Powder 15gm Btl) 1 appln EXT BID PRN PRN Reason: Affected Skin Folds Stop: 11/18/20 02:18 Oxycodone HCl (Oxycodone Hcl Ir 5 Mg Tab (Immediate Release)) 5 mg PO Q4H PRN PRN Reason: MODERATE Pain (4,5,6) & Pre PT Stop: 11/08/20 18:29 Last Admin: 11/01/20 13:38 Dose: 5 mg Documented by: Oxycodone HCl (Oxycodone Hcl Ir 5 Mg Tab (Immediate Release)) 10 mg PO Q4H PRN PRN Reason: SEVERE Pain (7,8,9,10) Stop: 11/08/20 18:29 Last Admin: 10/31/20 22:06 Dose: 10 mg Documented by: Polyethylene Glycol (Polyethylene (Miralax) 17 Gm Pack) 17 gm PO DAILY [facility] Stop: 11/28/20 11:29 Last Admin: 11/01/20 08:46 Dose: 17 gm Documented by: Simethicone (Simethicone 40 Mg/0.6 Ml 30ml) 40 mg PO Q4H PRN PRN Reason: Gas Retention Stop: 11/28/20 14:53 Last Admin: 10/31/20 11:24 Dose: 40 mg Documented by: Resident Activity Tracking Resident Involvement: Resident Care Provided Care Provided: Adult Hospital Medicine (1) DKA (diabetic ketoacidosis) Diabetes mellitus complication detail: without coma Diabetes mellitus type: other specified (including SALO) Qualified Code(s): E13.10 - Other specified diabetes mellitus with ketoacidosis without coma (2) Sepsis Sepsis acute organ dysfunction status: with acute organ dysfunction Sepsis type: sepsis due to unspecified organism Severe sepsis acute organ dysfunction type: encephalopathy Severe sepsis shock status: without septic shock Qualified Code(s): A41.9 - Sepsis, unspecified organism; R65.20 - Severe sepsis without septic shock; G93.40 - Encephalopathy, unspecified
--- NOTE | 2020-11-01 11:42 | Pharmacy Report ---
Pharmacy Glycemic Short Note 2 - Date of Service November 01, 2020 - Glycemic Short BSG Results (Last 24 hours): 10/31/20 10/31/20 10/31/20 11:48 16:37 21:07 Glucose POC Glucose 188 H 95 88 11/01/20 11/01/20 11/01/20 00:01 04:18 07:14 Glucose 166 H POC Glucose 124 H 135 H 11/01/20 11/01/20 07:31 11:21 Glucose POC Glucose 193 H 194 H OUTPATIENT ANTIDIABETIC REGIMEN: * NovoLog 8 units with meals * Lantus 50 units HS (confirmed w/ patient's and updated med rec) * Metformin 500mg PO BID * A1c: 12.9% ASSESSMENT: 10/31/20 * Patient's BSGs yesterday were 764-125-96-88 mg/dL * Patient received 151 units of insulin (100 units of basal and 51 units of bolus). Current regimen is very basal heavy HOWEVER it is supported by continued elevated fasting BSGs. * Continue with Lantus 100 units in morning. Fasting is trending downwards - today is 193 mg/dL. Readjust evening Lantus. Patient received none yesterday. Only give 10 units if blood sugar is over 160 mg/dL. * Postprandial BSGs trended downwards yesterday. Loosen CR. 10/30/20: * Pt has received 159 units of insulin over the past 24hrs * 90 units of basal with Lantus * 69 units of bolus with NovoLog * BSGs ranged from 125-259 mg/dL * Fasting BSG remains above goal, despite significant increase in Lantus, continue to titrate Lantus up in AM and continue HS dose for BSG >140 * Tighten CF/CR 10/29/20: * Pt has received 137 units of insulin over the past 24hrs * 65 units of basal with Lantus * 72 units of bolus with NovoLog * BSGs ranged from 113 - 261 mg/dL * Fasting BSG remains above goal, continue to titrate Lantus up and add HS dose for BSG > 140mg/dl * Post prandials improving, continue CF/CR. 10/28/20: * Pt has received 133 units of insulin over the past 24hrs * 65 units of basal with Lantus * 68 units of bolus with NovoLog * BSGs ranged from 183 - 274 mg/dL * Fasting BSG remains above goal, continue to titrate Lantus up PLAN FOR INPATIENT GLYCEMIC CONTROL: * Hold outpatient oral diabetes medications * Basal insulin -continue * Lantus 100 units daily (10 units for BSG > 160 mg/dL in the evening) * Bolus insulin - loosen * NovoLog ACHS * Goal range 110-140 mg/dL * Correction factor: 8 mg/dL/unit * Carb ratio: 2.5 g CHO/unit PLAN FOR DISCHARGE: * A1c of 12.9 % (10/19/20) is above goal * Consider increase in insulin dosing on discharge * Lantus 100 units SQ once daily * NovoLog 15 units TID with meals (hold NovoLog if meal is skipped; 10 units of Novolog if BSG < 100 mg/dL) PLUS sliding scale for correction
[2020-11-01] MEDS: oxyCODONE HCL IR 5 MG TAB (IMMEDIATE RELEASE) PO PRN (13:38)
--- NOTE | 2020-11-01 19:27 | Billing Data ---
Date of Service November 01, 2020 Coding Level of Care Code 07911 Subseq Hosp Care Lvl 2
[2020-11-02] MEDS: ACETAMINOPHEN 500 MG TAB PO SCH ×3 (06:06→21:18)
--- NOTE | 2020-11-02 08:14 | Hospitalist Progress Note ---
Date of Service November 02, 2020 Assessment & Plan (1) Diabetic wet gangrene of the foot: Plan: CT showing soft tissue ulcer of the dorsal hindfoot with subcutaneous emphysema and cellulitis changes, as well as cortical irregularity with associated lucencies of the dorsal aspect of the posterior calcaneus compatible with osteomyelitis. Ceftriaxone per sensitivities of wound culture growing providencia rettgeri, treatment since 10/18. Ortho consulted following recs, kalli mireles performed 10/25/20. Consulted wound care appreciate recs. Febrile overnight on 10/23/20, blood cultures re-drawn, NGTD 10/25/20. Ordered wound cultures 10/25/20 currently gram negative enterococcus faecalis and Proteus Mirabilis, was placed on daptomycin as well. IV abx discontinued 10/31/20 and replaced with augmentin per pharmacy recommendation. -monitor CBC, BMP, last WBC 14.7 (<--13.83<--14.66<-- 16.77) -on acetaminophen and oxycodone PRN for pain -heparin, aspirin plavix for anticoagulation -case management contacted, awaiting placement for rehab facility (2) Sepsis: Plan: see above (3) Decubitus ulcer of left heel: Plan: see above (4) DKA (diabetic ketoacidosis): Plan: A1C 12.9 on 10/19 indicating poory controlled DM. 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 Needs education regarding DM management. Outpt Regimen: novolog achs, Lantus 50 units, BID Metformin BID. Glycemic CX placed following recs - current blood glucose 106 - currently managed with novolog, lantus (5) Cellulitis: Plan: resolved (6) Acute metabolic encephalopathy: Plan: resolved Plan: (7) Stroke: - Hx significant chronic R MCA stroke - Continue home statin, aspirin and clopidogrel (8) HTN/HLD - continue home lisinopril, metoprolol, and statin - BP 142/79 may be secondary to hospitalization or post surgery status or pain (9) Varicella zoster (back): - completed course valacyclovir QID for 7 days (10/20 - 10/27), rash is much improved (10) PT/OT - seen by PT/OT, recommended SNF rehab after hospitalization (11) Anemia Last Hgb 8.2 may be due to post surgery status or blood draws, continue to monitor (12) Elevated Platelets Last platelet 683 likely reactive to surgery, continue to monitor FENa: [] Code Status: [DNR/DNI] DVT PPX: [herapin, aspirin, plavix] PT/OT: [ordered] Case Management: [SNF rehab] Dispo: [] Dina Sky Do PGY 1, FCM Admission and Anticipated Discharge Date Admission Date: October 18, 2020 Supervising Physician Co-Signing Physician Notes I personally examined the patient and verified all polanco points of history and exam, discussed case, and agree with decision making with Dr Sky. Sleeping. Still waiting on disposition from insurance [employer]. No new issues otherwise. Vitals noted, resting comfortably no distress. HEENT normocephalic atraumatic mucous membranes moist. Breathing unlabored no accessory muscle use good effort. Gangrenous foot in the context of peripheral vascular disease from longstanding uncontrolled diabetesnow status post amputation. Sepsis appears to have resolved, now on p.o. antibiotics and appearing stable. Type 1 diabeteslongstanding poor control, continue insulin based glycemic management. 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 Ortho is following, they want oral abx 6 wk coverage from [facility], wound dressing changed. Case management has contacted her , patient agrees she needs inpatient rehab after hospitalization for her leg, currenting awaiting placement. Patient was seen at bedside, sleeping. Aguilar is present. PMH: HTN, HLD, IDDM, PVD, CVA Review of Systems Constitutional: no fever and no chills Ear, Nose, Mouth, Throat: no ear pain, no hearing loss, no dizziness, no change in voice and no dysphagia Respiratory: no cough and no dyspnea Cardiovascular: no chest pain and no palpitations Gastrointestinal: no abdominal pain, no nausea, no vomiting, no constipation and no diarrhea/loose stools Musculoskeletal: no swelling Physical Exam Constitutional: + obese and cooperative Eyes: PERRL, conjunctivae normal, anicteric sclerae Respiratory: normal respiratory effort, lungs clear to auscultation normal respiratory effort Auscultation: lungs clear to auscultation bilaterally Cardiovascular: RRR, no murmur, no edema Heart Sounds: normal S1 and normal S2 Extremities: no edema Gastrointestinal (Abdomen): normal bowel sounds, soft, nontender, no hepatosplenomegaly Musculoskeletal: Extremities: + amputation noted Skin: no rashes Results & Data Results & Data ([facility]) Vital Signs (Past 12 Hours) Vital Signs Temp Pulse Pulse Resp BP Pulse Ox 11/02/20 07:38 96 H 11/02/20 07:00 36.7 C 97 H 18 113/74 95 11/02/20 04:09 37.4 C 88 18 123/78 92 11/01/20 23:18 37.4 C 105 H 18 113/74 96 11/01/20 22:19 107 H 11/01/20 21:02 38.2 C H Laboratory Results 11/02/20 11/02/20 11/02/20 Range/Units 17:31 16:56 16:35 POC Glucose 106 H 80 63 L* (70-99) mg/dl 11/02/20 11/02/20 11/02/20 Range/Units 16:08 15:39 15:32 POC Glucose 53 L* 48 L* 43 L* (70-99) mg/dl 11/02/20 11/02/20 11/02/20 Range/Units 15:13 14:52 14:50 POC Glucose 44 L* 44 L* 43 L* (70-99) mg/dl 11/02/20 11/02/20 11/01/20 Range/Units 11:23 07:16 20:07 POC Glucose 242 H 215 H 115 H (70-99) mg/dl Medications Administered Current Inpatient Medications Acetaminophen (Acetaminophen 500 Mg Tab) 1,000 mg PO Q8H [facility] Stop: 11/21/20 20:59 Last Admin: 11/02/20 14:45 Dose: Not Given Documented by: Amoxicillin/Clavulanate Potassium (Amoxicillin/Clavulanate 875 Mg Tab) 1 tab PO BIDM [facility] Stop: 12/12/20 16:59 Last Admin: 11/02/20 17:32 Dose: 1 tab Documented by: Aspirin (Aspirin 81 Mg Ectab) 81 mg PO DAILY [facility] Stop: 11/18/20 08:59 Last Admin: 11/02/20 10:23 Dose: 81 mg Documented by: Atorvastatin Calcium (Atorvastatin 40 Mg Tab) 40 mg PO DAILY [facility] Stop: 11/18/20 08:59 Last Admin: 11/02/20 10:22 Dose: 40 mg Documented by: Clopidogrel Bisulfate (Clopidogrel Bisulfate 75 Mg Tab) 75 mg PO DAILY [facility] Stop: 11/18/20 08:59 Last Admin: 11/02/20 10:22 Dose: 75 mg Documented by: Dextrose (Dextrose 50% 50 Ml Syringe) 25 - 50 ml IV UD PRN; Protocol PRN Reason: Hypoglycemia Protocol Stop: 11/17/20 23:14 Glucagon (Glucagon For Inj 1 Mg Vial) 1 mg IM UD PRN; Protocol PRN Reason: Hypoglycemia Protocol Stop: 11/17/20 23:14 Glucose (Glucose 40% Gel 15 Gm Tube) 15 - 30 gm PO UD PRN; Protocol PRN Reason: Hypoglycemia Protocol Stop: 11/17/20 23:14 Glucose (Glucose 10 Tabs/Tube) 4 - 8 tabs PO UD PRN; Protocol PRN Reason: Hypoglycemia Protocol Stop: 11/17/20 23:14 Last Admin: 11/02/20 16:38 Dose: 4 tabs Documented by: Heparin Sodium (Porcine) (Heparin Sod 5,000 Unit/0.5 Ml Vial) 5,000 units SQ Q12 [facility] Stop: 11/18/20 20:59 Last Admin: 11/02/20 10:36 Dose: 5,000 units Documented by: Insulin Aspart (Insulin Aspart 100 Units/Ml 3 Ml Pen) 0 units SC ACHS [facility]; Protocol Stop: 11/22/20 16:29 Last Admin: 11/02/20 17:26 Dose: Not Given Documented by: Insulin Aspart (Insulin Aspart 100 Units/Ml 3 Ml Pen) 0 units SC 0000,0400 [facility]; Protocol Stop: 11/03/20 04:01 Insulin Glargine (Insulin Glargine Solostar 100 Units/Ml 3 Ml Pen) 100 units SC DAILY [facility]; Protocol Stop: 11/30/20 08:59 Last Admin: 11/02/20 10:26 Dose: 100 units Documented by: Lisinopril (Lisinopril 20 Mg Tab) 20 mg PO DAILY [facility] [place] Stop: 11/18/20 08:59 Last Admin: 11/02/20 10:22 Dose: 20 mg Documented by: Metoprolol Succinate (Metoprolol Succ 50mg Ext Rel Tab) 50 mg PO DAILY [facility] [place] Stop: 11/18/20 08:59 Last Admin: 11/02/20 10:23 Dose: 50 mg Documented by: Metoprolol Tartrate (Metoprolol Tartrate 1 Mg/Ml Vial) 2.5 mg IV Q6 PRN PRN Reason: SBP > 160 Stop: 11/18/20 11:59 Last Admin: 10/29/20 21:22 Dose: 2.5 mg Documented by: Miscellaneous (Carbohydrates For Hypoglycemia ) 15 - 30 gm PO PRN PRN PRN Reason: Hypoglycemia Treatment Stop: 11/17/20 23:14 Last Admin: 11/02/20 16:12 Dose: 30 gm Documented by: Miscellaneous Information (Pharmacy Glycemic Mgmt Consult) 1 ea N/A UD PRN PRN Reason: Consult Stop: 11/18/20 01:08 Nystatin (Nystatin Powder 15gm Btl) 1 appln EXT BID PRN PRN Reason: Affected Skin Folds Stop: 11/18/20 02:18 Oxycodone HCl (Oxycodone Hcl Ir 5 Mg Tab (Immediate Release)) 5 mg PO Q4H PRN PRN Reason: MODERATE Pain (4,5,6) & Pre PT Stop: 11/08/20 18:29 Last Admin: 11/01/20 13:38 Dose: 5 mg Documented by: Oxycodone HCl (Oxycodone Hcl Ir 5 Mg Tab (Immediate Release)) 10 mg PO Q4H PRN PRN Reason: SEVERE Pain (7,8,9,10) Stop: 11/08/20 18:29 Last Admin: 11/02/20 12:35 Dose: 10 mg Documented by: Polyethylene Glycol (Polyethylene (Miralax) 17 Gm Pack) 17 gm PO DAILY [facility] Stop: 11/28/20 11:29 Last Admin: 11/02/20 10:24 Dose: 17 gm Documented by: Simethicone (Simethicone 40 Mg/0.6 Ml 30ml) 40 mg PO Q4H PRN PRN Reason: Gas Retention Stop: 11/28/20 14:53 Last Admin: 10/31/20 11:24 Dose: 40 mg Documented by: Resident Activity Tracking Resident Involvement: Resident Care Provided Care Provided: Adult Hospital Medicine (1) DKA (diabetic ketoacidosis) Diabetes mellitus complication detail: without coma Diabetes mellitus type: other specified (including SALO) Qualified Code(s): E13.10 - Other specified diabetes mellitus with ketoacidosis without coma (2) Sepsis Sepsis acute organ dysfunction status: with acute organ dysfunction Sepsis type: sepsis due to unspecified organism Severe sepsis acute organ dysfunction type: encephalopathy Severe sepsis shock status: without septic shock Qualified Code(s): A41.9 - Sepsis, unspecified organism; R65.20 - Severe sepsis without septic shock; G93.40 - Encephalopathy, unspecified
[2020-11-02] MEDS: lisinopril 20 MG TAB PO SCH (10:22)
[2020-11-02] MEDS: ATORVASTATIN 40 MG TAB PO SCH (10:22)
[2020-11-02] MEDS: AMOXICILLIN/CLAVULANATE 875 MG TAB PO SCH ×2 (10:22→17:32)
[2020-11-02] MEDS: CLOPIDOGREL BISULFATE 75 MG TAB PO SCH (10:22)
[2020-11-02] MEDS: ASPIRIN 81 MG ECTAB PO SCH (10:23)
[2020-11-02] MEDS: METOPROLOL SUCC 50MG EXT REL TAB PO SCH (10:23)
[2020-11-02] MEDS: POLYETHYLENE (MIRALAX) 17 GM PACK PO SCH (10:24)
[2020-11-02] MEDS: INSULIN ASPART 100 UNITS/ML 3 ML PEN SC SCH ×4 (10:24→21:10)
[2020-11-02] MEDS: INSULIN GLARGINE SOLOSTAR 100 UNITS/ML 3 ML PEN SC SCH (10:26)
[2020-11-02] MEDS: HEPARIN SOD 5,000 UNIT/0.5 ML VIAL SQ SCH ×2 (10:36→21:18)
[2020-11-02] MEDS: oxyCODONE HCL IR 5 MG TAB (IMMEDIATE RELEASE) PO PRN ×2 (12:35→23:27)
[2020-11-02] MEDS: CARBOHYDRATES FOR HYPOGLYCEMIA PO PRN ×2 (14:53→16:12)
--- NOTE | 2020-11-02 15:04 | Pharmacy Report ---
Pharmacy Glycemic Short Note 2 - Date of Service November 02, 2020 - Glycemic Short BSG Results (Last 24 hours): 11/01/20 11/01/20 11/02/20 17:07 20:07 07:16 POC Glucose 79 115 H 215 H 11/02/20 11/02/20 11/02/20 11:23 14:50 14:52 POC Glucose 242 H 43 L* 44 L* OUTPATIENT ANTIDIABETIC REGIMEN: * NovoLog 8 units with meals * Lantus 50 units HS (confirmed w/ patient's and updated med rec) * Metformin 500mg PO BID * A1c: 12.9% ASSESSMENT: 11/02/20 * Patient's BSGs yesterday were [phone]. * Patient's fasting BSG today was 215 mg/dL. * Patient received Lantus 100 units and 59 units of bolus insulin. * Patient's lunch BSG was 242 mg/dL. HOWEVER, this was only 1 hour after morning Novolog was given. Patient subsequently had hypoglycemic event due to overcorrection of lunch BSG. * Loosen Novolog slightly. 10/31/20 * Patient's BSGs yesterday were [phone] mg/dL * Patient received 151 units of insulin (100 units of basal and 51 units of bolus). Current regimen is very basal heavy HOWEVER it is supported by continued elevated fasting BSGs. * Continue with Lantus 100 units in morning. Fasting is trending downwards - today is 193 mg/dL. Readjust evening Lantus. Patient received none yesterday. Only give 10 units if blood sugar is over 160 mg/dL. * Postprandial BSGs trended downwards yesterday. Loosen CR. 10/30/20: * Pt has received 159 units of insulin over the past 24hrs * 90 units of basal with Lantus * 69 units of bolus with NovoLog * BSGs ranged from 125-259 mg/dL * Fasting BSG remains above goal, despite significant increase in Lantus, continue to titrate Lantus up in AM and continue HS dose for BSG >140 * Tighten CF/CR 10/29/20: * Pt has received 137 units of insulin over the past 24hrs * 65 units of basal with Lantus * 72 units of bolus with NovoLog * BSGs ranged from 113 - 261 mg/dL * Fasting BSG remains above goal, continue to titrate Lantus up and add HS dose for BSG > 140mg/dl * Post prandials improving, continue CF/CR. 10/28/20: * Pt has received 133 units of insulin over the past 24hrs * 65 units of basal with Lantus * 68 units of bolus with NovoLog * BSGs ranged from 183 - 274 mg/dL * Fasting BSG remains above goal, continue to titrate Lantus up PLAN FOR INPATIENT GLYCEMIC CONTROL: * Hold outpatient oral diabetes medications * Basal insulin -continue * Lantus 100 units daily (10 units for BSG > 160 mg/dL in the evening) * Bolus insulin - loosen * NovoLog ACHS * Goal range 110-140 mg/dL * Correction factor: 8 mg/dL/unit * Carb ratio: 2.5 g CHO/unit PLAN FOR DISCHARGE: * A1c of 12.9 % (10/19/20) is above goal * Consider increase in insulin dosing on discharge * Lantus 100 units SQ once daily * NovoLog 15 units TID with meals (hold NovoLog if meal is skipped; 10 units of Novolog if BSG < 100 mg/dL) PLUS sliding scale for correction
--- NOTE | 2020-11-02 19:04 | Billing Data ---
Date of Service November 02, 2020 Coding Level of Care Code 42467 Subseq Hosp Care Lvl 1
[2020-11-03] MEDS: INSULIN ASPART 100 UNITS/ML 3 ML PEN SC SCH ×6 (00:44→22:18)
[2020-11-03] MEDS: ACETAMINOPHEN 500 MG TAB PO SCH ×3 (05:50→21:39)
[2020-11-03 07:16] LABS: Basophils # (auto) 0.03 K/uL (0-0.2); Basophils % (auto) 0.2 %; Eosinophils # (auto) 0.53 K/uL (0-0.5); Eosinophils % (auto) 3.9 %; Hematocrit (blood only) 24.9 % (37-47); Hemoglobin 7.8 g/dL (12.0-16.0); Immature Granulocytes # (auto) 0.07 K/uL (0.00-0.02); Immature Granulocytes % (auto) 0.5 %; Lymphocytes # (auto) 3.64 K/uL (1.2-3.4); Mean Corpuscular Hemoglobin 29.3 pg (25-34); Mean Corpuscular Hgb Conc 31.3 g/dL (32-36); Mean Corpuscular Volume 93.6 fL (80-100); Mean Platelet Volume 7.8 fL (7.4-10.4); Monocytes # (auto) 1.52 K/uL (0.11-0.59); Monocytes % (auto) 11.3 %; Neutrophils % (auto) 57.1 %; Platelet Count 641 K/uL (130-400); RDW Coefficient of Variation 14.6 % (11.5-14.5); RDW Standard Deviation 48.6 fL (36.4-46.3); Red Blood Count 2.66 M/uL (4.2-5.4); White Blood Count 13.49 K/uL (4.8-10.8)
[2020-11-03 07:52] LABS: Calcium 10.4 mg/dl (8.5-10.1); Potassium 4.2 mmol/L (3.5-5.1)
[2020-11-03 08:16] LABS: BUN Creatinine Ratio 40.7 (10-20); Creatinine Clr Calc Pharmacy 122.5 ml/min; Est GFR (African American) 135.4 ml/min; Est GFR (Non-African American) 116.8 ml/min
[2020-11-03] MEDS ORDERED: INSULIN GLARGINE SOLOSTAR 100 UNITS/ML 3 ML PEN SC SCH (09:00)
[2020-11-03] MEDS: AMOXICILLIN/CLAVULANATE 875 MG TAB PO SCH ×2 (09:04→17:32)
[2020-11-03] MEDS: CLOPIDOGREL BISULFATE 75 MG TAB PO SCH (09:09)
[2020-11-03] MEDS: lisinopril 20 MG TAB PO SCH (09:09)
[2020-11-03] MEDS: ASPIRIN 81 MG ECTAB PO SCH (09:09)
[2020-11-03] MEDS: METOPROLOL SUCC 50MG EXT REL TAB PO SCH (09:09)
[2020-11-03] MEDS: ATORVASTATIN 40 MG TAB PO SCH (09:09)
[2020-11-03] MEDS: HEPARIN SOD 5,000 UNIT/0.5 ML VIAL SQ SCH ×2 (09:09→21:39)
[2020-11-03] MEDS: POLYETHYLENE (MIRALAX) 17 GM PACK PO SCH (09:11)
--- NOTE | 2020-11-03 11:34 | Hospitalist Progress Note ---
Date of Service November 03, 2020 Assessment & Plan (1) Diabetic wet gangrene of the foot: Plan: CT showing soft tissue ulcer of the dorsal hindfoot with subcutaneous emphysema and cellulitis changes, as well as cortical irregularity with associated lucencies of the dorsal aspect of the posterior calcaneus compatible with osteomyelitis. Ceftriaxone per sensitivities of wound culture growing providencia rettgeri, treatment since 10/18. Ortho consulted following recs, mahan chi performed 10/25/20. Consulted wound care appreciate recs. Febrile overnight on 10/23/20, blood cultures re-drawn, NGTD 10/25/20. Ordered wound cultures 10/25/20 currently gram negative enterococcus faecalis and Proteus Mirabilis, was placed on daptomycin as well. IV abx discontinued 10/31/20 and replaced with augmentin per pharmacy recommendation. -monitor CBC, BMP, last WBC 13.49 (<--14.7<--13.83<--14.66<-- 16.77) -on acetaminophen and oxycodone PRN for pain -heparin, aspirin plavix for anticoagulation -case management contacted, awaiting placement for rehab facility (2) Sepsis: Plan: see above (3) Decubitus ulcer of left heel: Plan: see above (4) DKA (diabetic ketoacidosis): Plan: A1C 12.9 on 10/19 indicating poory controlled DM. 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 Needs education regarding DM management. Outpt Regimen: novolog achs, Lantus 50 units, BID Metformin BID. Glycemic CX placed following recs - current blood glucose 123 - currently managed with novolog, lantus (5) Cellulitis: Plan: resolved (6) Acute metabolic encephalopathy: Plan: resolved Plan: (7) Stroke: - Hx significant chronic R MCA stroke - Continue home statin, aspirin and clopidogrel (8) HTN/HLD - continue home lisinopril, metoprolol, and statin - BP 132/84 may be secondary to hospitalization or post surgery status or pain (9) Varicella zoster (back): - completed course valacyclovir QID for 7 days (10/20 - 10/27), rash is much improved (10) PT/OT - seen by PT/OT, recommended SNF rehab after hospitalization (11) Anemia Last Hgb 8.2 may be due to post surgery status or blood draws, continue to monitor (12) Elevated Platelets Last platelet 641 downtrending, likely reactive to surgery, continue to monitor FENa: [] Code Status: [DNR/DNI] DVT PPX: [herapin, aspirin, plavix] PT/OT: [ordered] Case Management: [SNF rehab] Dispo: [] Dina Sky Do PGY 1, FCM Admission and Anticipated Discharge Date Admission Date: October 18, 2020 Supervising Physician Co-Signing Physician Notes I personally examined the patient and verified all polanco points of history and exam, discussed case, and agree with decision making with Dr Sky. Still waiting on disposition. Got message from case management requesting peer to peer even for SNF. Discussed with peer to peer physician who is very pleasant, but noted that she would not be able to bend Medicare criterianoting that since the patient was dependent prior to admission and dependent now, she would not be able to approve even SNF. She acknowledged that there are shades of severity with independence, but noted the rules as they are to her confined her to not being able to change her decision. She did suggest that we appeal to nupur [facility]. She noted they would be able to be more flexible with the rules Vitals noted, resting comfortably no distress. HEENT normocephalic atraumatic mucous membranes moist. Breathing unlabored no accessory muscle use good effort. Gangrenous foot in the context of peripheral vascular disease from longstanding uncontrolled diabetesnow status post amputation. Sepsis appears to have resolved, now on p.o. antibiotics and appearing stable. Type 1 diabeteslongstanding poor control, continue insulin based glycemic m anagement. Otherwise as above, will appeal SNF denial to nupur Martincertainly does not seem like home would be safe or rational right now. Discussed with peer to peer physician that in her current state I would suspect her at home complications/readmission rate to likely exceed 90%. I understand that the peer to peer physician apparently is bound by rules she is unable to change, but hopefully an appealing to high Martin commonsense will prevail, and the patient will be able to have safe disposition at SNF with an ultimate goal of home. It is a shame that the whole bureaucratic process is taking so long, given that she has been stable to leave the hospital for days, and as high Martin drags this out, she is at more risk for progressive deconditioning and nosocomial infections. Hopefully they will bring this to quick resolution and she will be able to move her journey one step forward at SNF tomorrow. 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 Ortho is following, they want oral abx 6 wk coverage from DOS, wound dressing changed. Case management has contacted her , patient agrees she needs inpatient rehab after hospitalization for her leg, currenting awaiting placement. Patient was seen at bedside, eating sleeping well. Aguilar is present. Still awaiting placement for SNF. PMH: HTN, HLD, IDDM, PVD, CVA Review of Systems Constitutional: no fever and no chills Ear, Nose, Mouth, Throat: no ear pain, no hearing loss, no dizziness, no change in voice and no dysphagia Respiratory: no cough and no dyspnea Cardiovascular: no chest pain and no palpitations Gastrointestinal: no abdominal pain, no nausea, no vomiting, no constipation and no diarrhea/loose stools Musculoskeletal: no swelling Physical Exam Constitutional: + obese and cooperative Eyes: PERRL, conjunctivae normal, anicteric sclerae Respiratory: normal respiratory effort, lungs clear to auscultation normal respiratory effort Auscultation: lungs clear to auscultation bilaterally Cardiovascular: RRR, no murmur, no edema Heart Sounds: normal S1 and normal S2 Extremities: no edema Gastrointestinal (Abdomen): normal bowel sounds, soft, nontender, no hepatosplenomegaly Musculoskeletal: Extremities: + amputation noted Skin: no rashes Results & Data Results & Data ([facility]) Vital Signs (Past 12 Hours) Vital Signs Temp Pulse Pulse Resp BP Pulse Ox 11/03/20 08:07 36.7 C 93 H 18 126/79 99 11/03/20 07:36 87 11/03/20 03:39 36.7 C 85 16 134/82 99 Laboratory Results 11/03/20 11/03/20 11/03/20 Range/Units 17:19 16:59 16:58 WBC (4.8-10.8) K/uL RBC (4.2-5.4) M/uL Hgb (12.0-16.0) g/dL Hct (37-47) % MCV (80-100) fL MCH (25-34) pg MCHC (32-36) g/dL RDW Std Deviation (36.4-46.3) fL RDW Coeff of Travis (11.5-14.5) % Plt Count (130-400) K/uL MPV (7.4-10.4) fL Immature Gran % (Auto) % Neut % (Auto) % Lymph % (Auto) % [place] % (Auto) % Eos % (Auto) % Baso % (Auto) % Neut # (Auto) (1.4-6.5) K/uL Lymph # (Auto) (1.2-3.4) K/uL [place] # (Auto) (0.11-0.59) K/uL Eos # (Auto) (0-0.5) K/uL Baso # (Auto) (0-0.2) K/uL Immature Gran # (Auto) (0.00-0.02) K/uL Sodium (136-145) mmol/L Potassium (3.5-5.1) mmol/L Chloride (98-107) mmol/L Carbon Dioxide (21-32) mmol/L Anion Gap (3-11) BUN (7-18) mg/dl Creatinine (0.6-1.2) mg/dl Est Cr Clr Drug Dosing ml/min Est GFR ( Amer) ml/min Est GFR (Non-Af Amer) ml/min BUN/Creatinine Ratio (10-20) Glucose (70-99) mg/dl POC Glucose 70 67 L* 64 L* (70-99) mg/dl Calcium (8.5-10.1) mg/dl 11/03/20 11/03/20 11/03/20 Range/Units 11:39 07:48 06:53 WBC (4.8-10.8) K/uL RBC (4.2-5.4) M/uL Hgb (12.0-16.0) g/dL Hct (37-47) % MCV (80-100) fL MCH (25-34) pg MCHC (32-36) g/dL RDW Std Deviation (36.4-46.3) fL RDW Coeff of Travis (11.5-14.5) % Plt Count (130-400) K/uL MPV (7.4-10.4) fL Immature Gran % (Auto) % Neut % (Auto) % Lymph % (Auto) % [place] % (Auto) % Eos % (Auto) % Baso % (Auto) % Neut # (Auto) (1.4-6.5) K/uL Lymph # (Auto) (1.2-3.4) K/uL [place] # (Auto) (0.11-0.59) K/uL Eos # (Auto) (0-0.5) K/uL Baso # (Auto) (0-0.2) K/uL Immature Gran # (Auto) (0.00-0.02) K/uL Sodium 134 L (136-145) mmol/L Potassium 4.2 (3.5-5.1) mmol/L Chloride 100 (98-107) mmol/L Carbon Dioxide 31 (21-32) mmol/L Anion Gap 3.0 (3-11) BUN 18 (7-18) mg/dl Creatinine 0.45 L (0.6-1.2) mg/dl Est Cr Clr Drug Dosing 122.5 ml/min Est GFR ( Amer) 135.4 ml/min Est GFR (Non-Af Amer) 116.8 ml/min BUN/Creatinine Ratio 40.7 H (10-20) Glucose 123 H (70-99) mg/dl POC Glucose 192 H 136 H (70-99) mg/dl Calcium 10.4 H (8.5-10.1) mg/dl 11/03/20 11/03/20 11/03/20 Range/Units 06:53 03:41 00:25 WBC 13.49 H (4.8-10.8) K/uL RBC 2.66 L (4.2-5.4) M/uL Hgb 7.8 L (12.0-16.0) g/dL Hct 24.9 L (37-47) % MCV 93.6 (80-100) fL MCH 29.3 (25-34) pg MCHC 31.3 L (32-36) g/dL RDW Std Deviation 48.6 H (36.4-46.3) fL RDW Coeff of Travis 14.6 H (11.5-14.5) % Plt Count 641 H (130-400) K/uL MPV 7.8 (7.4-10.4) fL Immature Gran % (Auto) 0.5 % Neut % (Auto) 57.1 % Lymph % (Auto) 27.0 % [place] % (Auto) 11.3 % Eos % (Auto) 3.9 % Baso % (Auto) 0.2 % Neut # (Auto) 7.70 H (1.4-6.5) K/uL Lymph # (Auto) 3.64 H (1.2-3.4) K/uL [place] # (Auto) 1.52 H (0.11-0.59) K/uL Eos # (Auto) 0.53 H (0-0.5) K/uL Baso # (Auto) 0.03 (0-0.2) K/uL Immature Gran # (Auto) 0.07 H (0.00-0.02) K/uL Sodium (136-145) mmol/L Potassium (3.5-5.1) mmol/L Chloride (98-107) mmol/L Carbon Dioxide (21-32) mmol/L Anion Gap (3-11) BUN (7-18) mg/dl Creatinine (0.6-1.2) mg/dl Est Cr Clr Drug Dosing ml/min Est GFR ( Amer) ml/min Est GFR (Non-Af Amer) ml/min BUN/Creatinine Ratio (10-20) Glucose (70-99) mg/dl POC Glucose 110 H 123 H (70-99) mg/dl Calcium (8.5-10.1) mg/dl 11/02/20 Range/Units 21:02 WBC (4.8-10.8) K/uL RBC (4.2-5.4) M/uL Hgb (12.0-16.0) g/dL Hct (37-47) % MCV (80-100) fL MCH (25-34) pg MCHC (32-36) g/dL RDW Std Deviation (36.4-46.3) fL RDW Coeff of Travis (11.5-14.5) % Plt Count (130-400) K/uL MPV (7.4-10.4) fL Immature Gran % (Auto) % Neut % (Auto) % Lymph % (Auto) % [place] % (Auto) % Eos % (Auto) % Baso % (Auto) % Neut # (Auto) (1.4-6.5) K/uL Lymph # (Auto) (1.2-3.4) K/uL [place] # (Auto) (0.11-0.59) K/uL Eos # (Auto) (0-0.5) K/uL Baso # (Auto) (0-0.2) K/uL Immature Gran # (Auto) (0.00-0.02) K/uL Sodium (136-145) mmol/L Potassium (3.5-5.1) mmol/L Chloride (98-107) mmol/L Carbon Dioxide (21-32) mmol/L Anion Gap (3-11) BUN (7-18) mg/dl Creatinine (0.6-1.2) mg/dl Est Cr Clr Drug Dosing ml/min Est GFR ( Amer) ml/min Est GFR (Non-Af Amer) ml/min BUN/Creatinine Ratio (10-20) Glucose (70-99) mg/dl POC Glucose 121 H (70-99) mg/dl Calcium (8.5-10.1) mg/dl Medications Administered Current Inpatient Medications Acetaminophen (Acetaminophen 500 Mg Tab) 1,000 mg PO Q8H MART Stop: 11/21/20 20:59 Last Admin: 11/03/20 12:28 Dose: 1,000 mg Documented by: Amoxicillin/Clavulanate Potassium (Amoxicillin/Clavulanate 875 Mg Tab) 1 tab PO BIDM MART Stop: 12/12/20 16:59 Last Admin: 11/03/20 17:32 Dose: 1 tab Documented by: Aspirin (Aspirin 81 Mg Ectab) 81 mg PO DAILY MART Stop: 11/18/20 08:59 Last Admin: 11/03/20 09:09 Dose: 81 mg Documented by: Atorvastatin Calcium (Atorvastatin 40 Mg Tab) 40 mg PO DAILY MART Stop: 11/18/20 08:59 Last Admin: 11/03/20 09:09 Dose: 40 mg Documented by: Clopidogrel Bisulfate (Clopidogrel Bisulfate 75 Mg Tab) 75 mg PO DAILY MART Stop: 11/18/20 08:59 Last Admin: 11/03/20 09:09 Dose: 75 mg Documented by: Dextrose (Dextrose 50% 50 Ml Syringe) 25 - 50 ml IV UD PRN; Protocol PRN Reason: Hypoglycemia Protocol Stop: 11/17/20 23:14 Glucagon (Glucagon For Inj 1 Mg Vial) 1 mg IM UD PRN; Protocol PRN Reason: Hypoglycemia Protocol Stop: 11/17/20 23:14 Glucose (Glucose 40% Gel 15 Gm Tube) 15 - 30 gm PO UD PRN; Protocol PRN Reason: Hypoglycemia Protocol Stop: 11/17/20 23:14 Glucose (Glucose 10 Tabs/Tube) 4 - 8 tabs PO UD PRN; Protocol PRN Reason: Hypoglycemia Protocol Stop: 11/17/20 23:14 Last Admin: 11/02/20 16:38 Dose: 4 tabs Documented by: Heparin Sodium (Porcine) (Heparin Sod 5,000 Unit/0.5 Ml Vial) 5,000 units SQ Q12 MART Stop: 11/18/20 20:59 Last Admin: 11/03/20 09:09 Dose: 5,000 units Documented by: Insulin Aspart (Insulin Aspart 100 Units/Ml 3 Ml Pen) 0 units SC [facility]; Protocol Stop: 11/22/20 16:29 Last Admin: 11/03/20 12:34 Dose: 22 units Documented by: Insulin Glargine (Insulin Glargine Solostar 100 Units/Ml 3 Ml Pen) 0 units SC DAILY [facility]; Protocol Stop: 12/04/20 08:59 Lisinopril (Lisinopril 20 Mg Tab) 20 mg PO DAILY [facility] Stop: 11/18/20 08:59 Last Admin: 11/03/20 09:09 Dose: 20 mg Documented by: Metoprolol Succinate (Metoprolol Succ 50mg Ext Rel Tab) 50 mg PO DAILY [facility] Stop: 11/18/20 08:59 Last Admin: 11/03/20 09:09 Dose: 50 mg Documented by: Metoprolol Tartrate (Metoprolol Tartrate 1 Mg/Ml Vial) 2.5 mg IV Q6 PRN PRN Reason: SBP > 160 Stop: 11/18/20 11:59 Last Admin: 10/29/20 21:22 Dose: 2.5 mg Documented by: Miscellaneous (Carbohydrates For Hypoglycemia ) 15 - 30 gm PO PRN PRN PRN Reason: Hypoglycemia Treatment Stop: 11/17/20 23:14 Last Admin: 11/03/20 17:02 Dose: 15 gm Documented by: Miscellaneous Information (Pharmacy Glycemic Mgmt Consult) 1 ea N/A UD PRN PRN Reason: Consult Stop: 11/18/20 01:08 Nystatin (Nystatin Powder 15gm Btl) 1 appln EXT BID PRN PRN Reason: Affected Skin Folds Stop: 11/18/20 02:18 Oxycodone HCl (Oxycodone Hcl Ir 5 Mg Tab (Immediate Release)) 5 mg PO Q4H PRN PRN Reason: MODERATE Pain (4,5,6) & Pre PT Stop: 11/08/20 18:29 Last Admin: 11/02/20 23:27 Dose: 5 mg Documented by: Oxycodone HCl (Oxycodone Hcl Ir 5 Mg Tab (Immediate Release)) 10 mg PO Q4H PRN PRN Reason: SEVERE Pain (7,8,9,10) Stop: 11/08/20 18:29 Last Admin: 11/03/20 14:31 Dose: 10 mg Documented by: Polyethylene Glycol (Polyethylene (Miralax) 17 Gm Pack) 17 gm PO DAILY MART Stop: 11/28/20 11:29 Last Admin: 11/03/20 09:11 Dose: Not Given Documented by: Simethicone (Simethicone 40 Mg/0.6 Ml 30ml) 40 mg PO Q4H PRN PRN Reason: Gas Retention Stop: 11/28/20 14:53 Last Admin: 10/31/20 11:24 Dose: 40 mg Documented by: Resident Activity Tracking Resident Involvement: Resident Care Provided Care Provided: Adult Hospital Medicine (1) DKA (diabetic ketoacidosis) Diabetes mellitus complication detail: without coma Diabetes mellitus type: other specified (including SALO) Qualified Code(s): E13.10 - Other specified diabetes mellitus with ketoacidosis without coma (2) Sepsis Sepsis acute organ dysfunction status: with acute organ dysfunction Sepsis type: sepsis due to unspecified organism Severe sepsis acute organ dysfunction type: encephalopathy Severe sepsis shock status: without septic shock Qualified Code(s): A41.9 - Sepsis, unspecified organism; R65.20 - Severe sepsis without septic shock; G93.40 - Encephalopathy, unspecified
[2020-11-03] MEDS: oxyCODONE HCL IR 5 MG TAB (IMMEDIATE RELEASE) PO PRN ×2 (14:31→23:30)
--- NOTE | 2020-11-03 14:42 | Pharmacy Report ---
Pharmacy Glycemic Short Note 2 - Date of Service November 03, 2020 - Glycemic Short BSG Results (Last 24 hours): 11/02/20 11/02/20 11/02/20 14:50 14:52 15:13 Glucose POC Glucose 43 L* 44 L* 44 L* 11/02/20 11/02/20 11/02/20 15:32 15:39 16:08 Glucose POC Glucose 43 L* 48 L* 53 L* 11/02/20 11/02/20 11/02/20 16:35 16:56 17:31 Glucose POC Glucose 63 L* 80 106 H 11/02/20 11/03/20 11/03/20 21:02 00:25 03:41 Glucose POC Glucose 121 H 123 H 110 H 11/03/20 11/03/20 11/03/20 06:53 07:48 11:39 Glucose 123 H POC Glucose 136 H 192 H OUTPATIENT ANTIDIABETIC REGIMEN: * NovoLog 8 units with meals * Lantus 50 units HS (confirmed w/ patient's and updated med rec) * Metformin 500mg PO BID * A1c: 12.9% ASSESSMENT: 11/03/20 * Patient's BSGs yesterday were [phone]. Overnight BSGs were 123-110 * Patient's fasting BSG today was 136 mg/dL. * Patient received Lantus 100 units and 59 units of bolus insulin. * Patient's lunch BSG was 192 mg/dL. * For Lantus, gave 20% reduction dose (80 units) since patient's fasting BSG decreased by 100 points. Scale for tomorrow based upon BSG. * Continue with slightly loosened CF but tight CR. 11/02/20 * Patient's BSGs yesterday were [phone]. * Patient's fasting BSG today was 215 mg/dL. * Patient received Lantus 100 units and 59 units of bolus insulin. * Patient's lunch BSG was 242 mg/dL. HOWEVER, this was only 1 hour after morning Novolog was given. Patient subsequently had hypoglycemic event due to overcorrection of lunch BSG. * Loosen Novolog slightly. 10/31/20 * Patient's BSGs yesterday were [phone] mg/dL * Patient received 151 units of insulin (100 units of basal and 51 units of bolus). Current regimen is very basal heavy HOWEVER it is supported by continued elevated fasting BSGs. * Continue with Lantus 100 units in morning. Fasting is trending downwards - today is 193 mg/dL. Readjust evening Lantus. Patient received none yesterday. Only give 10 units if blood sugar is over 160 mg/dL. * Postprandial BSGs trended downwards yesterday. Loosen CR. 10/30/20: * Pt has received 159 units of insulin over the past 24hrs * 90 units of basal with Lantus * 69 units of bolus with NovoLog * BSGs ranged from 125-259 mg/dL * Fasting BSG remains above goal, despite significant increase in Lantus, continue to titrate Lantus up in AM and continue HS dose for BSG >140 * Tighten CF/CR 10/29/20: * Pt has received 137 units of insulin over the past 24hrs * 65 units of basal with Lantus * 72 units of bolus with NovoLog * BSGs ranged from 113 - 261 mg/dL * Fasting BSG remains above goal, continue to titrate Lantus up and add HS dose for BSG > 140mg/dl * Post prandials improving, continue CF/CR. 10/28/20: * Pt has received 133 units of insulin over the past 24hrs * 65 units of basal with Lantus * 68 units of bolus with NovoLog * BSGs ranged from 183 - 274 mg/dL * Fasting BSG remains above goal, continue to titrate Lantus up PLAN FOR INPATIENT GLYCEMIC CONTROL: * Hold outpatient oral diabetes medications * Basal insulin -decreased * Lantus 80 units SQ x 1 then 60-100 units SQ daily (60 units if BSG < 120 mg/dL; 80 units if BSG 120-160 mg/dL;100 units if BSG > 160 mg/dL) * Bolus insulin - loosen * NovoLog ACHS * Goal range 110-140 mg/dL * Correction factor: 10 mg/dL/unit * Carb ratio: 2.5 g CHO/unit PLAN FOR DISCHARGE: * A1c of 12.9 % (10/19/20) is above goal * Consider increase in insulin dosing on discharge * Lantus 80 units SQ once daily * NovoLog 15 units TID with meals (hold NovoLog if meal is skipped; 10 units of Novolog if BSG < 100 mg/dL) PLUS sliding scale for correction
[2020-11-03] MEDS: CARBOHYDRATES FOR HYPOGLYCEMIA PO PRN (17:02)
--- NOTE | 2020-11-03 18:02 | Billing Data ---
Date of Service November 03, 2020 Coding Level of Care Code 85888 Subseq Hosp Care Lvl 1
[2020-11-04] MEDS: ACETAMINOPHEN 500 MG TAB PO SCH ×3 (05:48→21:05)
--- NOTE | 2020-11-04 06:42 | Hospitalist Progress Note ---
Date of Service November 04, 2020 Assessment & Plan (1) Diabetic wet gangrene of the foot: Plan: 50yo female with history of DM2, CVA, HTN, HLD who presented with a gangrenous diabetic left foot ulcer who then underwent LLE BKA. Stable, currently pending placement. Sepsis secondary to diabetic gangrenous ulcer of L foot -Worsening infection occurred in the setting of uncontrolled DM2, DKA (see below) -CT on admission with soft tissue ulcer of the dorsal hindfoot with subcutaneous emphysema and cellulitis changes, as well as cortical irregularity with associated lucencies of the dorsal aspect of the posterior calcaneus compatible with osteomyelitis. -10/18: Ceftriaxone IV initiated -10/25: Ortho performed BKA, procedure was tolerated well without acute complications -Wound cultures obtained on day of BKA notable for E. faecalis and P. mirabilis; daptomycin IV initiated -Continue wound care, appreciate ongoing recommendations -Per pharmacy recommendation, IV antibiotics discontinued 10/31 and transitioned to augmentin PO therapy -Continue acetaminophen and oxycodone PRN pain -Trend daily CBC, BMP -Case management working on placement -Continue PT/OT DM2, DKA (resolved) -Patient noted to be in DKA on admission; DKA resolved on hospital day three -HbA1c 12.9% (10/19/20) -Patient's pre-hospitalization medication regimen adherence unclear; DM2 very poorly-controlled likely secondary to many factors including social stressors, caregiver education, other factors -Home med regimen held on admission -Continue lantus, ISS with novolog, continue BSG checks ACHS -Glycemic consult recommendations appreciated Acute delirium -Patient with acute-onset behavioral changes on 11/04 (see HPI) -Etiology likely multifactorial, differential includes anxiety/depression/stress, delirium secondary to infection, metabolic/electrolyte disturbances given recent poor PO intake, long-term hospitalization, low baseline functioning -Per , patient with waxing and waning depressive symptoms and suicidal ideation -Psychiatry consulted for diagnostic clarity and help with management, recommendations appreciated HTN/HLD -Continue home lisinopril, metoprolol, and statin History of stroke -Continue home statin, ASA, clopidogrel Anemia -Likely multifactorial, risk factors include malnutrition, post-surgical recover y, multiple comorbidities -Trend daily CBC Thrombocytosis -Likely represents acute phase reactant s/p surgery -Trend daily CBC Varicella zoster: resolved -Patient with suspected VZV rash on admission, which resolved after a seven-day course of valtrex Dispo -Case management following, currently working on SNF or inpatient rehab placement -Inpatient rehab denied by insurance despite patient with new disabilities and challenging recovery in the setting of poor pre-hospitalization functioning with multiple uncontrolled comorbidities -, Dr. Woods currently appealing this decision FEN: carb-consistent, minced and moist diet Code Status: DNR/DNI DVT PPX: heparin, aspirin, plavix PT/OT: working with patient daily Case Management: following, arranging SNF rehab Dispo: med/surg (2) Sepsis: (3) Decubitus ulcer of left heel: (4) DKA (diabetic ketoacidosis): (5) Cellulitis: (6) Acute metabolic encephalopathy: Admission and Anticipated Discharge Date Admission Date: October 18, 2020 Supervising Physician Co-Signing Physician Notes I personally examined the patient and verified all polanco points of history and exam, discussed case, and agree with decision making with Dr Sky. Still weak, on again off again communicative. No complaints, mostly notes that she wants to take a nap. Did not eat breakfastapparently threw it. Did eat lunch better. present at the bedsidenotes at baseline she is able to talk and carry on a conversation normally, and she while needing help, is definitely better able to participate in daily life than her current status. He does note that she has been depressed since the stroke. Vitals noted, resting comfortably no distress. HEENT normocephalic atraumatic mucous membranes moist. Breathing unlabored no accessory muscle use good effort. No focal neuro deficits. Gangrenous foot in the context of peripheral vascular disease from longstanding uncontrolled diabetesnow status post amputation. Sepsis appears to have resolved, now on p.o. antibiotics and appearing stable. Type 1 diabeteslongstanding poor control, continue titrating insulin based glycemic management. Altered mental statusappears to be an interplay of delirium/metabolic encephalopathy, as well as depression. Discussed this with extensively at the bedside. Waxing and waning certainly seems to fit with delirium, withdrawn can be either, when she is clearly lucid but very withdrawn and just does not want to talk, that certainly fits with depression. He noted that she was depressed from prior to this related to her stroke, we both discussed the concern on poor p.o. intake related to both the depression and the deliriumto that and he noted that she would not want feeding tubes, and even as we discussed rehab options, he notes that she would not want to be permanently nurs ing home bound. We discussed that while these are certainly things that might be relevant to her situation, it is too soon to clearly know how her situation will factorand so it would be reasonable to follow how she does day to day, as well as a week to weekwith hopes for progress. Should she show a plateau where it is clear she is not getting better anymore, or should she have multiple setbacks and complications, then it would be reasonable to discuss home with hospice, but we both agree that right now it is not clear that she is there. Offered empathy and support. Time in the room about 2 PM, time out about 2:35 PM, greater than 30 minutes [id number] in discussions with . Subjective 50yo Female here for heel ulcer osteomyelitis had BKA 10/25/20 currently day 10 postop. Ortho is following, they want oral abx 6 wk coverage from [facility], wound dressing changed. Case management has contacted her , patient agreed she needs inpatient rehab after hospitalization for her leg, currently awaiting placement. Per nurse last night, patient was agitated, screaming at the nurses until patient "wore herself out" and fell asleep. This morning at breakfast patient threw her food at the window and spit food out, despite RN's attempts at verbal deescalation. At times, patient would lay with her torso hanging off the bed; patient repeatedly resisted attempts at repositioning, with unclear motivation. While speaking with patient this morning, patient said "help me leave" or "help me get up". The treatment team explained that placement was still pending, and asked patient what type of help patient was requesting, patient continued to repeat "help me". When asked other questions (e.g. "would you like to call her ?"), patient continued to reply "help me". Throughout this encounter, patient appeared very distressed. Ordered CBC, BMP, UA, Psychiatry was consulted. arrived in afternoon, said this was not patient's typical behavior; patient's also provided details on patient's history of depressive symptoms since CVA. PMH: HTN, HLD, IDDM, PVD, CVA Review of Systems Review of Systems: Unobtainable due to cognitive status Physical Exam Constitutional: + obese Eyes: PERRL, conjunctivae normal, anicteric sclerae Respiratory: normal respiratory effort, lungs clear to auscultation normal respiratory effort Auscultation: lungs clear to auscultation bilaterally Cardiovascular: RRR, no murmur, no edema Heart Sounds: normal S1 and normal S2 Extremities: no edema Gastrointestinal (Abdomen): normal bowel sounds, soft, nontender, no hepatosplenomegaly Musculoskeletal: Extremities: + amputation noted Skin: no rashes Results & Data Results & Data ([facility]) Vital Signs (Past 12 Hours) Vital Signs Temp Pulse Pulse Resp BP Pulse Ox 11/04/20 04:07 36.8 C 98 H 18 109/72 99 11/03/20 23:00 95 H 11/03/20 22:51 37.1 C 97 H 20 109/72 92 11/03/20 19:34 37.1 C 87 18 106/72 97 Laboratory Results 11/04/20 11/04/20 11/04/20 Range/Units 12:27 12:10 12:00 WBC 11.76 H RBC 2.63 L Hgb 7.8 L Hct 24.5 L MCV 93.2 MCH 29.7 MCHC 31.8 L RDW Std Deviation 48.6 H RDW Coeff of Travis 14.4 Plt Count 737 H MPV 8.0 Immature Gran % (Auto) 0.3 Neut % (Auto) 61.5 Lymph % (Auto) 24.3 [place] % (Auto) 10.5 Eos % (Auto) 3.1 Baso % (Auto) 0.3 Neut # (Auto) 7.23 H Lymph # (Auto) 2.86 [place] # (Auto) 1.23 H Eos # (Auto) 0.36 Baso # (Auto) 0.04 Immature Gran # (Auto) 0.04 H Absolute Nucleated RBC Nucleated RBC % (auto) Neutrophils % (Manual) Band Neutrophils % Lymphocytes % (Manual) Prolymphocyte % Reactive Lymphs % (Man) Monocytes % (Manual) Eosinophils % (Manual) Basophils % (Manual) Metamyelocytes % (Man) Myelocytes % (Man) Promyelocytes % (Man) Blast Cells % (Manual) Plasma Cell % (Manual) Other Cells % Nucleated RBC % Neutrophils # (Manual) Band Neutrophils # Total Absolute Neuts Lymphocytes # (Manual) Prolymphocyte # Reactive Lymphs # Total Abs Lymphocytes Monocytes # (Manual) Eosinophils # (Manual) Basophils # (Manual) Metamyelocytes # (Man) Myelocytes # (Manual) Promyelocytes # (Man) Blast Cells # (Man) Plasma Cell # (Manual) Other Cells # Nucleated RBCs # (Man) Hypersegmented Neuts Hyposegmented Neuts Hypogranular Neuts Large Granular Lymphs # Lrg Granular Lymphs Hairy Cells Smudge Cells Toxic Granulation Toxic Vacuolation Dohle Bodies Frank Rods Platelet Estimate Hypogranular Platelets Clumped Platelets Giant Platelets Platelet Satelliting RBC Morphology Unremarkable Polychromasia Hypochromasia Poikilocytosis Basophilic Stippling Anisocytosis Microcytosis Macrocytosis Spherocytes Pappenheimer Bodies Sickle Cells Target Cells Tear Drop Cells Ovalocytes Stomatocytes Stewart-Fishtail Bodies Echinocytes Acanthocytes (Spur) Rouleaux RBC Agglutinates Schistocytes RBC Morph Comment Sezary Cell Sodium (136-145) mmol/L Potassium (3.5-5.1) mmol/L Chloride (98-107) mmol/L Carbon Dioxide (21-32) mmol/L Anion Gap (3-11) BUN (7-18) mg/dl Creatinine (0.6-1.2) mg/dl Est Cr Clr Drug Dosing ml/min Est GFR ( Amer) ml/min Est GFR (Non-Af Amer) ml/min BUN/Creatinine Ratio (10-20) Glucose (70-99) mg/dl POC Glucose 206 H (70-99) mg/dl Calcium (8.5-10.1) mg/dl Specimen Hemolysis Urine Color Yellow Urine Appearance Cloudy A (Clear) Urine pH 7.0 (4.5-7.5) Ur Specific [place] 1.020 (1.000-1.030) Urine Protein Negative (Negative) Urine Glucose (UA) Negative (Negative) Urine Ketones Trace H (Negative) Urine Blood 2+ H (Negative) Urine Nitrite Negative (Negative) Urine Bilirubin Negative (Negative) Urine Urobilinogen Negative (Negative) Ur Leukocyte Esterase 1+ H (Negative) Urine WBC (Auto) 10-30 H (0-5) /hpf Urine RBC (Auto) 10-30 H (0-4) /hpf U Hyaline Cast (Auto) 1-5 (0-5) /lpf U Epithel Cells (Auto) 10-20 H (0-5) /lpf Urine Bacteria (Auto) Negative (Negative) Urine Yeast Not Reportable 11/04/20 11/04/20 11/04/20 Range/Units 11:26 11:26 07:57 WBC Cancelled RBC Cancelled Hgb Cancelled Hct Cancelled MCV Cancelled MCH Cancelled MCHC Cancelled RDW Std Deviation Cancelled RDW Coeff of Travis Cancelled Plt Count Cancelled MPV Cancelled Immature Gran % (Auto) Cancelled Neut % (Auto) Cancelled Lymph % (Auto) Cancelled [place] % (Auto) Cancelled Eos % (Auto) Cancelled Baso % (Auto) Cancelled Neut # (Auto) Cancelled Lymph # (Auto) Cancelled [place] # (Auto) Cancelled Eos # (Auto) Cancelled Baso # (Auto) Cancelled Immature Gran # (Auto) Cancelled Absolute Nucleated RBC Cancelled Nucleated RBC % (auto) Cancelled Neutrophils % (Manual) Cancelled Band Neutrophils % Cancelled Lymphocytes % (Manual) Cancelled Prolymphocyte % Cancelled Reactive Lymphs % (Man) Cancelled Monocytes % (Manual) Cancelled Eosinophils % (Manual) Cancelled Basophils % (Manual) Cancelled Metamyelocytes % (Man) Cancelled Myelocytes % (Man) Cancelled Promyelocytes % (Man) Cancelled Blast Cells % (Manual) Cancelled Plasma Cell % (Manual) Cancelled Other Cells % Cancelled Nucleated RBC % Cancelled Neutrophils # (Manual) Cancelled Band Neutrophils # Cancelled Total Absolute Neuts Cancelled Lymphocytes # (Manual) Cancelled Prolymphocyte # Cancelled Reactive Lymphs # Cancelled Total Abs Lymphocytes Cancelled Monocytes # (Manual) Cancelled Eosinophils # (Manual) Cancelled Basophils # (Manual) Cancelled Metamyelocytes # (Man) Cancelled Myelocytes # (Manual) Cancelled Promyelocytes # (Man) Cancelled Blast Cells # (Man) Cancelled Plasma Cell # (Manual) Cancelled Other Cells # Cancelled Nucleated RBCs # (Man) Cancelled Hypersegmented Neuts Cancelled Hyposegmented Neuts Cancelled Hypogranular Neuts Cancelled Large Granular Lymphs Cancelled # Lrg Granular Lymphs Cancelled Hairy Cells Cancelled Smudge Cells Cancelled Toxic Granulation Cancelled Toxic Vacuolation Cancelled Dohle Bodies Cancelled Frank Rods Cancelled Platelet Estimate Cancelled Hypogranular Platelets Cancelled Clumped Platelets Cancelled Giant Platelets Cancelled Platelet Satelliting Cancelled RBC Morphology Cancelled Polychromasia Cancelled Hypochromasia Cancelled Poikilocytosis Cancelled Basophilic Stippling Cancelled Anisocytosis Cancelled Microcytosis Cancelled Macrocytosis Cancelled Spherocytes Cancelled Pappenheimer Bodies Cancelled Sickle Cells Cancelled Target Cells Cancelled Tear Drop Cells Cancelled Ovalocytes Cancelled Stomatocytes Cancelled Stewart-Fishtail Bodies Cancelled Echinocytes Cancelled Acanthocytes (Spur) Cancelled Rouleaux Cancelled RBC Agglutinates Cancelled Schistocytes Cancelled RBC Morph Comment Cancelled Sezary Cell Cancelled Sodium 134 L (136-145) mmol/L Potassium 4.6 (3.5-5.1) mmol/L Chloride 101 (98-107) mmol/L Carbon Dioxide 27 (21-32) mmol/L Anion Gap 6.0 (3-11) BUN 18 (7-18) mg/dl Creatinine 0.48 L (0.6-1.2) mg/dl Est Cr Clr Drug Dosing 114.7 ml/min Est GFR ( Amer) 132.6 ml/min Est GFR (Non-Af Amer) 114.4 ml/min BUN/Creatinine Ratio 38.2 H (10-20) Glucose 173 H (70-99) mg/dl POC Glucose 160 H (70-99) mg/dl Calcium 10.9 H (8.5-10.1) mg/dl Specimen Hemolysis Urine Color Urine Appearance (Clear) Urine pH (4.5-7.5) Ur Specific [place] (1.000-1.030) Urine Protein (Negative) Urine Glucose (UA) (Negative) Urine Ketones (Negative) Urine Blood (Negative) Urine Nitrite (Negative) Urine Bilirubin (Negative) Urine Urobilinogen (Negative) Ur Leukocyte Esterase (Negative) Urine WBC (Auto) (0-5) /hpf Urine RBC (Auto) (0-4) /hpf U Hyaline Cast (Auto) (0-5) /lpf U Epithel Cells (Auto) (0-5) /lpf Urine Bacteria (Auto) (Negative) Urine Yeast 11/03/20 11/03/20 11/03/20 Range/Units 20:33 20:33 17:36 WBC RBC Hgb Hct MCV MCH MCHC RDW Std Deviation RDW Coeff of Travis Plt Count MPV Immature Gran % (Auto) Neut % (Auto) Lymph % (Auto) [place] % (Auto) Eos % (Auto) Baso % (Auto) Neut # (Auto) Lymph # (Auto) [place] # (Auto) Eos # (Auto) Baso # (Auto) Immature Gran # (Auto) Absolute Nucleated RBC Nucleated RBC % (auto) Neutrophils % (Manual) Band Neutrophils % Lymphocytes % (Manual) Prolymphocyte % Reactive Lymphs % (Man) Monocytes % (Manual) Eosinophils % (Manual) Basophils % (Manual) Metamyelocytes % (Man) Myelocytes % (Man) Promyelocytes % (Man) Blast Cells % (Manual) Plasma Cell % (Manual) Other Cells % Nucleated RBC % Neutrophils # (Manual) Band Neutrophils # Total Absolute Neuts Lymphocytes # (Manual) Prolymphocyte # Reactive Lymphs # Total Abs Lymphocytes Monocytes # (Manual) Eosinophils # (Manual) Basophils # (Manual) Metamyelocytes # (Man) Myelocytes # (Manual) Promyelocytes # (Man) Blast Cells # (Man) Plasma Cell # (Manual) Other Cells # Nucleated RBCs # (Man) Hypersegmented Neuts Hyposegmented Neuts Hypogranular Neuts Large Granular Lymphs # Lrg Granular Lymphs Hairy Cells Smudge Cells Toxic Granulation Toxic Vacuolation Dohle Bodies Frank Rods Platelet Estimate Hypogranular Platelets Clumped Platelets Giant Platelets Platelet Satelliting RBC Morphology Polychromasia Hypochromasia Poikilocytosis Basophilic Stippling Anisocytosis Microcytosis Macrocytosis Spherocytes Pappenheimer Bodies Sickle Cells Target Cells Tear Drop Cells Ovalocytes Stomatocytes Stewart-Fishtail Bodies Echinocytes Acanthocytes (Spur) Rouleaux RBC Agglutinates Schistocytes RBC Morph Comment Sezary Cell Sodium (136-145) mmol/L Potassium (3.5-5.1) mmol/L Chloride (98-107) mmol/L Carbon Dioxide (21-32) mmol/L Anion Gap (3-11) BUN (7-18) mg/dl Creatinine (0.6-1.2) mg/dl Est Cr Clr Drug Dosing ml/min Est GFR ( Amer) ml/min Est GFR (Non-Af Amer) ml/min BUN/Creatinine Ratio (10-20) Glucose (70-99) mg/dl POC Glucose 125 H 125 H 89 (70-99) mg/dl Calcium (8.5-10.1) mg/dl Specimen Hemolysis Urine Color Urine Appearance (Clear) Urine pH (4.5-7.5) Ur Specific [place] (1.000-1.030) Urine Protein (Negative) Urine Glucose (UA) (Negative) Urine Ketones (Negative) Urine Blood (Negative) Urine Nitrite (Negative) Urine Bilirubin (Negative) Urine Urobilinogen (Negative) Ur Leukocyte Esterase (Negative) Urine WBC (Auto) (0-5) /hpf Urine RBC (Auto) (0-4) /hpf U Hyaline Cast (Auto) (0-5) /lpf U Epithel Cells (Auto) (0-5) /lpf Urine Bacteria (Auto) (Negative) Urine Yeast 11/03/20 11/03/20 11/03/20 Range/Units 17:19 16:59 16:58 WBC RBC Hgb Hct MCV MCH MCHC RDW Std Deviation RDW Coeff of Travis Plt Count MPV Immature Gran % (Auto) Neut % (Auto) Lymph % (Auto) [place] % (Auto) Eos % (Auto) Baso % (Auto) Neut # (Auto) Lymph # (Auto) [place] # (Auto) Eos # (Auto) Baso # (Auto) Immature Gran # (Auto) Absolute Nucleated RBC Nucleated RBC % (auto) Neutrophils % (Manual) Band Neutrophils % Lymphocytes % (Manual) Prolymphocyte % Reactive Lymphs % (Man) Monocytes % (Manual) Eosinophils % (Manual) Basophils % (Manual) Metamyelocytes % (Man) Myelocytes % (Man) Promyelocytes % (Man) Blast Cells % (Manual) Plasma Cell % (Manual) Other Cells % Nucleated RBC % Neutrophils # (Manual) Band Neutrophils # Total Absolute Neuts Lymphocytes # (Manual) Prolymphocyte # Reactive Lymphs # Total Abs Lymphocytes Monocytes # (Manual) Eosinophils # (Manual) Basophils # (Manual) Metamyelocytes # (Man) Myelocytes # (Manual) Promyelocytes # (Man) Blast Cells # (Man) Plasma Cell # (Manual) Other Cells # Nucleated RBCs # (Man) Hypersegmented Neuts Hyposegmented Neuts Hypogranular Neuts Large Granular Lymphs # Lrg Granular Lymphs Hairy Cells Smudge Cells Toxic Granulation Toxic Vacuolation Dohle Bodies Frank Rods Platelet Estimate Hypogranular Platelets Clumped Platelets Giant Platelets Platelet Satelliting RBC Morphology Polychromasia Hypochromasia Poikilocytosis Basophilic Stippling Anisocytosis Microcytosis Macrocytosis Spherocytes Pappenheimer Bodies Sickle Cells Target Cells Tear Drop Cells Ovalocytes Stomatocytes Stewart-Fishtail Bodies Echinocytes Acanthocytes (Spur) Rouleaux RBC Agglutinates Schistocytes RBC Morph Comment Sezary Cell Sodium (136-145) mmol/L Potassium (3.5-5.1) mmol/L Chloride (98-107) mmol/L Carbon Dioxide (21-32) mmol/L Anion Gap (3-11) BUN (7-18) mg/dl Creatinine (0.6-1.2) mg/dl Est Cr Clr Drug Dosing ml/min Est GFR ( Amer) ml/min Est GFR (Non-Af Amer) ml/min BUN/Creatinine Ratio (10-20) Glucose (70-99) mg/dl POC Glucose 70 67 L* 64 L* (70-99) mg/dl Calcium (8.5-10.1) mg/dl Specimen Hemolysis Urine Color Urine Appearance (Clear) Urine pH (4.5-7.5) Ur Specific [place] (1.000-1.030) Urine Protein (Negative) Urine Glucose (UA) (Negative) Urine Ketones (Negative) Urine Blood (Negative) Urine Nitrite (Negative) Urine Bilirubin (Negative) Urine Urobilinogen (Negative) Ur Leukocyte Esterase (Negative) Urine WBC (Auto) (0-5) /hpf Urine RBC (Auto) (0-4) /hpf U Hyaline Cast (Auto) (0-5) /lpf U Epithel Cells (Auto) (0-5) /lpf Urine Bacteria (Auto) (Negative) Urine Yeast Medications Administered Current Inpatient Medications Acetaminophen (Acetaminophen 500 Mg Tab) 1,000 mg PO Q8H [facility] Stop: 11/21/20 20:59 Last Admin: 11/04/20 12:32 Dose: 1,000 mg Documented by: Amoxicillin/Clavulanate Potassium (Amoxicillin/Clavulanate 875 Mg Tab) 1 tab PO BIDM [facility] Stop: 12/12/20 16:59 Last Admin: 11/04/20 09:56 Dose: 1 tab Documented by: Aspirin (Aspirin 81 Mg Ectab) 81 mg PO DAILY [facility] Stop: 11/18/20 08:59 Last Admin: 11/04/20 09:58 Dose: 81 mg Documented by: Atorvastatin Calcium (Atorvastatin 40 Mg Tab) 40 mg PO DAILY [facility] Stop: 11/18/20 08:59 Last Admin: 11/04/20 09:58 Dose: 40 mg Documented by: Clopidogrel Bisulfate (Clopidogrel Bisulfate 75 Mg Tab) 75 mg PO DAILY [facility] Stop: 11/18/20 08:59 Last Admin: 11/04/20 09:57 Dose: 75 mg Documented by: Dextrose (Dextrose 50% 50 Ml Syringe) 25 - 50 ml IV UD PRN; Protocol PRN Reason: Hypoglycemia Protocol Stop: 11/17/20 23:14 Glucagon (Glucagon For Inj 1 Mg Vial) 1 mg IM UD PRN; Protocol PRN Reason: Hypoglycemia Protocol Stop: 11/17/20 23:14 Glucose (Glucose 40% Gel 15 Gm Tube) 15 - 30 gm PO UD PRN; Protocol PRN Reason: Hypoglycemia Protocol Stop: 11/17/20 23:14 Glucose (Glucose 10 Tabs/Tube) 4 - 8 tabs PO UD PRN; Protocol PRN Reason: Hypoglycemia Protocol Stop: 11/17/20 23:14 Last Admin: 11/02/20 16:38 Dose: 4 tabs Documented by: Heparin Sodium (Porcine) (Heparin Sod 5,000 Unit/0.5 Ml Vial) 5,000 units SQ Q12 [facility] Stop: 11/18/20 20:59 Last Admin: 11/04/20 09:59 Dose: 5,000 units Documented by: Insulin Aspart (Insulin Aspart 100 Units/Ml 3 Ml Pen) 0 units SC ACHS [facility]; Protocol Stop: 11/22/20 16:29 Last Admin: 11/04/20 12:52 Dose: 10 units Documented by: Insulin Glargine (Insulin Glargine Solostar 100 Units/Ml 3 Ml Pen) 0 units SC DAILY [facility]; Protocol Stop: 12/04/20 08:59 Last Admin: 11/04/20 10:27 Dose: 80 units Documented by: Lisinopril (Lisinopril 20 Mg Tab) 20 mg PO DAILY [facility] Stop: 11/18/20 08:59 Last Admin: 11/04/20 09:57 Dose: 20 mg Documented by: Metoprolol Succinate (Metoprolol Succ 50mg Ext Rel Tab) 50 mg PO DAILY [facility] Stop: 11/18/20 08:59 Last Admin: 11/04/20 09:57 Dose: 50 mg Documented by: Metoprolol Tartrate (Metoprolol Tartrate 1 Mg/Ml Vial) 2.5 mg IV Q6 PRN PRN Reason: SBP > 160 Stop: 11/18/20 11:59 Last Admin: 10/29/20 21:22 Dose: 2.5 mg Documented by: Miscellaneous (Carbohydrates For Hypoglycemia ) 15 - 30 gm PO PRN PRN PRN Reason: Hypoglycemia Treatment Stop: 11/17/20 23:14 Last Admin: 11/03/20 17:02 Dose: 15 gm Documented by: Miscellaneous Information (Pharmacy Glycemic Mgmt Consult) 1 ea N/A UD PRN PRN Reason: Consult Stop: 11/18/20 01:08 Nystatin (Nystatin Powder 15gm Btl) 1 appln EXT BID PRN PRN Reason: Affected Skin Folds Stop: 11/18/20 02:18 Oxycodone HCl (Oxycodone Hcl Ir 5 Mg Tab (Immediate Release)) 5 mg PO Q4H PRN PRN Reason: MODERATE Pain (4,5,6) & Pre PT Stop: 11/08/20 18:29 Last Admin: 11/03/20 23:30 Dose: 5 mg Documented by: Oxycodone HCl (Oxycodone Hcl Ir 5 Mg Tab (Immediate Release)) 10 mg PO Q4H PRN PRN Reason: SEVERE Pain (7,8,9,10) Stop: 11/08/20 18:29 Last Admin: 11/03/20 14:31 Dose: 10 mg Documented by: Polyethylene Glycol (Polyethylene (Miralax) 17 Gm Pack) 17 gm PO DAILY [facility] Stop: 11/28/20 11:29 Last Admin: 11/04/20 10:00 Dose: Not Given Documented by: Simethicone (Simethicone 40 Mg/0.6 Ml 30ml) 40 mg PO Q4H PRN PRN Reason: Gas Retention Stop: 11/28/20 14:53 Last Admin: 10/31/20 11:24 Dose: 40 mg Documented by: Resident Activity Tracking Resident Involvement: Resident Care Provided Care Provided: Adult Hospital Medicine (1) DKA (diabetic ketoacidosis) Diabetes mellitus complication detail: without coma Diabetes mellitus type: other specified (including SALO) Qualified Code(s): E13.10 - Other specified diabetes mellitus with ketoacidosis without coma (2) Sepsis Sepsis acute organ dysfunction status: with acute organ dysfunction Sepsis type: sepsis due to unspecified organism Severe sepsis acute organ dysfunction type: encephalopathy Severe sepsis shock status: without septic shock Qualified Code(s): A41.9 - Sepsis, unspecified organism; R65.20 - Severe sepsis without septic shock; G93.40 - Encephalopathy, unspecified
[2020-11-04] MEDS: INSULIN ASPART 100 UNITS/ML 3 ML PEN SC SCH ×4 (09:54→21:01)
[2020-11-04] MEDS: AMOXICILLIN/CLAVULANATE 875 MG TAB PO SCH ×2 (09:56→18:06)
[2020-11-04] MEDS: lisinopril 20 MG TAB PO SCH (09:57)
[2020-11-04] MEDS: CLOPIDOGREL BISULFATE 75 MG TAB PO SCH (09:57)
[2020-11-04] MEDS: METOPROLOL SUCC 50MG EXT REL TAB PO SCH (09:57)
[2020-11-04] MEDS: ASPIRIN 81 MG ECTAB PO SCH (09:58)
[2020-11-04] MEDS: ATORVASTATIN 40 MG TAB PO SCH (09:58)
[2020-11-04] MEDS: HEPARIN SOD 5,000 UNIT/0.5 ML VIAL SQ SCH ×2 (09:59→21:05)
[2020-11-04] MEDS: POLYETHYLENE (MIRALAX) 17 GM PACK PO SCH (10:00)
[2020-11-04] MEDS: INSULIN GLARGINE SOLOSTAR 100 UNITS/ML 3 ML PEN SC SCH (10:27)
[2020-11-04 12:22] LABS: BUN Creatinine Ratio 38.2 (10-20); Calcium 10.9 mg/dl (8.5-10.1); Creatinine Clr Calc Pharmacy 114.7 ml/min; Est GFR (African American) 132.6 ml/min; Est GFR (Non-African American) 114.4 ml/min; Potassium 4.6 mmol/L (3.5-5.1)
[2020-11-04 12:23] LABS: Appearance Urine Cloudy (Clear); Bacteria Urine Automated Negative (Negative); Bilirubin Urine Negative (Negative); Blood Urine 2+ (Negative); Color Urine Yellow; Glucose Urine UA Negative (Negative); Ketones Urine Trace (Negative); Leukocyte Esterase Urine 1+ (Negative); Nitrite Urine Negative (Negative); Protein Urine Negative (Negative); Urobilinogen Urine Negative (Negative)
[2020-11-04 12:52] LABS: Basophils # (auto) 0.04 K/uL (0-0.2); Basophils % (auto) 0.3 %; Eosinophils # (auto) 0.36 K/uL (0-0.5); Eosinophils % (auto) 3.1 %; Hematocrit (blood only) 24.5 % (37-47); Hemoglobin 7.8 g/dL (12.0-16.0); Immature Granulocytes # (auto) 0.04 K/uL (0.00-0.02); Immature Granulocytes % (auto) 0.3 %; Lymphocytes # (auto) 2.86 K/uL (1.2-3.4); Lymphocytes % (auto) 24.3 %; Mean Corpuscular Hemoglobin 29.7 pg (25-34); Mean Corpuscular Volume 93.2 fL (80-100); Monocytes # (auto) 1.23 K/uL (0.11-0.59); Monocytes % (auto) 10.5 %; Neutrophils # (auto) 7.23 K/uL (1.4-6.5); Neutrophils % (auto) 61.5 %; Platelet Count 737 K/uL (130-400); RDW Coefficient of Variation 14.4 % (11.5-14.5); RDW Standard Deviation 48.6 fL (36.4-46.3); Red Blood Count 2.63 M/uL (4.2-5.4); White Blood Count 11.76 K/uL (4.8-10.8)
[2020-11-04 12:53] LABS: Mean Corpuscular Hgb Conc 31.8 g/dL (32-36)
--- NOTE | 2020-11-04 13:15 | Pharmacy Report ---
Pharmacy Glycemic Short Note 2 - Date of Service November 04, 2020 - Glycemic Short BSG Results (Last 24 hours): 11/03/20 11/03/20 11/03/20 16:58 16:59 17:19 Glucose POC Glucose 64 L* 67 L* 70 11/03/20 11/03/20 11/03/20 17:36 20:33 20:33 Glucose POC Glucose 89 125 H 125 H 11/04/20 11/04/20 07:57 11:26 Glucose 173 H POC Glucose 160 H OUTPATIENT ANTIDIABETIC REGIMEN: * NovoLog 8 units with meals * Lantus 50 units HS (confirmed w/ patient's and updated med rec) * Metformin 500mg PO BID * A1c: 12.9% ASSESSMENT: 11/04/20 * Patient's BSGs yesterday were [phone]. Overnight BSGs were 123-110 * Patient's fasting BSG today was 160 mg/dL. * Patient received Lantus 80 units and 31 units of bolus insulin. * Patient's lunch BSG was 206 mg/dL. * Patient's BSG today was slightly higher than yesterday. Continue with scale. * Low BSG at dinnertime reflective of CF too aggressive. Loosen to 12. 11/03/20 * Patient's BSGs yesterday were [phone]. Overnight BSGs were 123-110 * Patient's fasting BSG today was 136 mg/dL. * Patient received Lantus 100 units and 59 units of bolus insulin. * Patient's lunch BSG was 192 mg/dL. * For Lantus, gave 20% reduction dose (80 units) since patient's fasting BSG decreased by 100 points. Scale for tomorrow based upon BSG. * Continue with slightly loosened CF but tight CR. 11/02/20 * Patient's BSGs yesterday were [phone]. * Patient's fasting BSG today was 215 mg/dL. * Patient received Lantus 100 units and 59 units of bolus insulin. * Patient's lunch BSG was 242 mg/dL. HOWEVER, this was only 1 hour after morning Novolog was given. Patient subsequently had hypoglycemic event due to overcorrection of lunch BSG. * Loosen Novolog slightly. PLAN FOR INPATIENT GLYCEMIC CONTROL: * Hold outpatient oral diabetes medications * Basal insulin -decreased * Lantus 60-100 units SQ daily (60 units if BSG < 120 mg/dL; 80 units if BSG 120-160 mg/dL;100 units if BSG > 160 mg/dL) * Bolus insulin - loosen * NovoLog ACHS * Goal range 110-140 mg/dL * Correction factor: 12 mg/dL/unit * Carb ratio: 2.5 g CHO/unit PLAN FOR DISCHARGE: * A1c of 12.9 % (10/19/20) is above goal * Insulin requirements are changing rapidly while hospitalized. Recommend awaiting stable dosing to make discharge recommendations.
[2020-11-04 13:29] LABS: RBC Morphology Unremarkable
--- NOTE | 2020-11-04 17:57 | Billing Data ---
Date of Service November 04, 2020 Coding Level of Care Code 65461 Subseq Hosp Care Lvl 2
--- NOTE | 2020-11-04 17:58 | Billing Data ---
Date of Service November 04, 2020 Coding Level of Care Code 11153 Prolonged Care (int'l)
[2020-11-04] MEDS: oxyCODONE HCL IR 5 MG TAB (IMMEDIATE RELEASE) PO PRN (21:04)
[2020-11-05] MEDS: ACETAMINOPHEN 500 MG TAB PO SCH ×3 (05:34→20:56)
--- NOTE | 2020-11-05 08:24 | Hospitalist Progress Note ---
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 Stable, currently pending placement. Sepsis secondary to diabetic gangrenous ulcer of L foot -Worsening infection occurred in the setting of uncontrolled DM2, DKA (see below) -CT on admission with soft tissue ulcer of the dorsal hindfoot with subcutaneous emphysema and cellulitis changes, as well as cortical irregularity with associated lucencies of the dorsal aspect of the posterior calcaneus compatible with osteomyelitis. -10/18: Ceftriaxone IV initiated -10/25: Ortho performed BKA, procedure was tolerated well without acute complications -Wound cultures obtained on day of BKA notable for E. faecalis and P. mirabilis; daptomycin IV initiated -Continue wound care, appreciate ongoing recommendations -Per pharmacy recommendation, IV antibiotics discontinued 10/31 and transitioned to augmentin PO therapy -Continue acetaminophen and oxycodone PRN pain -Trend daily CBC, BMP -Case management working on placement -Continue PT/OT DM2, DKA (resolved) -Patient noted to be in DKA on admission; DKA resolved on hospital day three -HbA1c 12.9% (10/19/20) -Patient's pre-hospitalization medication regimen adherence unclear; DM2 very poorly-controlled likely secondary to many factors including social stressors, caregiver education, other factors -Home med regimen held on admission -Continue lantus, ISS with novolog, continue BSG checks ACHS -Glycemic consult recommendations appreciated Acute delirium -Patient with acute-onset behavioral changes on 11/04 (see HPI) -Etiology likely multifactorial, differential includes anxiety/depression/stress, delirium secondary to infection, metabolic/electrolyte disturbances given recent poor PO intake, long-term hospitalization, low baseline functioning -Per , patient with waxing and waning depressive symptoms and suicidal ideation -Psychiatry consulted for diagnostic clarity and help with management, recommendations appreciated HTN/HLD -Continue home lisinopril, metoprolol, and statin History of stroke -Continue home statin, ASA, clopidogrel Anemia -Likely multifactorial, risk factors include malnutrition, post-surgical recover y, multiple comorbidities -Trend daily CBC Thrombocytosis -Likely represents acute phase reactant s/p surgery -Trend daily CBC Varicella zoster: resolved -Patient with suspected VZV rash on admission, which resolved after a seven-day course of valtrex Dispo -Case management following, currently working on SNF or inpatient rehab placement -Inpatient rehab denied by insurance despite patient with new disabilities and challenging recovery in the setting of poor pre-hospitalization functioning with multiple uncontrolled comorbidities -, Dr. Woods currently appealing this decision FEN: carb-consistent, minced and moist diet Code Status: DNR/DNI DVT PPX: heparin, aspirin, plavix PT/OT: working with patient daily Case Management: following, arranging SNF rehab Dispo: med/surg (2) Sepsis: (3) Decubitus ulcer of left heel: (4) DKA (diabetic ketoacidosis): (5) Cellulitis: (6) Acute metabolic encephalopathy: Admission and Anticipated Discharge Date Admission Date: October 18, 2020 Supervising Physician Co-Signing Physician Notes I personally examined the patient and verified all polanco points of history and exam, discussed case, and agree with decision making with Dr Simon. Son present at the bedside, answered questions to the best my ability. Patient herself is complaining of some pain at her left leg stump. No other new complaints. Vitals noted, resting comfortably no distress. HEENT normocephalic atraumatic mucous membranes moist. Breathing unlabored no accessory muscle use good effort. No focal neuro deficits. Stump/lower extremity appears to have incision healing well, some mild inflammatory changes but no exudate tracking erythema or dehiscence. No crepitus. Gangrenous foot in the context of peripheral vascular disease from longstanding uncontrolled diabetesnow status post amputation. Sepsis appears to have resolved, now on p.o. antibiotics and appearing stable. She does seem to have uncontrolled painmentally seems to be tolerating the oxycodone reasonably well, in spite of her normal creatinine, her severe vascular disease makes me highly concerned about blood flow ADR from an NSAIDtherefore for now we will cautiously utilize long-acting OxyContin 10 mg twice daily to try to have less "ups and downs" with her pain control. Type 1 diabeteslongstanding poor control, continue titrating insulinsugars more reasonable today Altered mental statusappears to be an interplay of delirium/metabolic encephalopathy, as well as depression. Continue to reorient, try to offer empathy and support. Appreciate psychiatry input. DispositionSNF with rehab emphasis once possible. Subjective Patient seen and evaluated at bedside this morning. No acute events overnight. Today patient complains of knee pain though it isn't any better or worse compared to normal. Patient denies CP, SOB, abdominal pain, nausea, vomiting, lightheadedness, dizziness, and diarrhea. Review of Systems Review of Systems: See HPI Results & Data Results & Data ([facility]) Vital Signs (Past 12 Hours) Vital Signs Temp Pulse Pulse Resp BP Pulse Ox 11/05/20 07:43 36.8 C 16 125/56 L 94 11/05/20 07:37 81 11/05/20 03:47 36.8 C 88 20 122/72 95 11/05/20 01:27 94 H 11/05/20 00:04 37.0 C 89 20 110/68 Resident Activity Tracking Resident Involvement: Resident Care Provided Care Provided: Adult Hospital Medicine (1) DKA (diabetic ketoacidosis) Diabetes mellitus complication detail: without coma Diabetes mellitus type: other specified (including SALO) Qualified Code(s): E13.10 - Other specified diabetes mellitus with ketoacidosis without coma (2) Sepsis Sepsis acute organ dysfunction status: with acute organ dysfunction Sepsis type: sepsis due to unspecified organism Severe sepsis acute organ dysfunction type: encephalopathy Severe sepsis shock status: without septic shock Qualified Code(s): A41.9 - Sepsis, unspecified organism; R65.20 - Severe sepsis without septic shock; G93.40 - Encephalopathy, unspecified
[2020-11-05] MEDS: INSULIN ASPART 100 UNITS/ML 3 ML PEN SC SCH ×4 (08:56→20:57)
[2020-11-05] MEDS: INSULIN GLARGINE SOLOSTAR 100 UNITS/ML 3 ML PEN SC SCH (08:57)
[2020-11-05] MEDS: ASPIRIN 81 MG ECTAB PO SCH (09:01)
[2020-11-05] MEDS: METOPROLOL SUCC 50MG EXT REL TAB PO SCH (09:01)
[2020-11-05] MEDS: CLOPIDOGREL BISULFATE 75 MG TAB PO SCH (09:01)
[2020-11-05] MEDS: THIAMINE HCL 100 MG TAB PO SCH (09:01)
[2020-11-05] MEDS: ASCORBIC ACID 500 MG TAB PO SCH (09:01)
[2020-11-05] MEDS: CEROVITE ADV FORMULA TAB PO SCH (09:01)
[2020-11-05] MEDS: AMOXICILLIN/CLAVULANATE 875 MG TAB PO SCH ×2 (09:01→17:33)
[2020-11-05] MEDS: ATORVASTATIN 40 MG TAB PO SCH (09:01)
[2020-11-05] MEDS: HEPARIN SOD 5,000 UNIT/0.5 ML VIAL SQ SCH ×2 (09:02→20:56)
[2020-11-05] MEDS: lisinopril 20 MG TAB PO SCH (09:02)
[2020-11-05] MEDS: POLYETHYLENE (MIRALAX) 17 GM PACK PO SCH (09:03)
[2020-11-05 11:08] LABS: Basophils # (auto) 0.07 K/uL (0-0.2); Basophils % (auto) 0.7 %; Eosinophils # (auto) 0.53 K/uL (0-0.5); Hematocrit (blood only) 25.7 % (37-47); Hemoglobin 8.2 g/dL (12.0-16.0); Immature Granulocytes # (auto) 0.05 K/uL (0.00-0.02); Immature Granulocytes % (auto) 0.5 %; Lymphocytes # (auto) 2.75 K/uL (1.2-3.4); Lymphocytes % (auto) 26.1 %; Mean Corpuscular Hemoglobin 29.9 pg (25-34); Mean Corpuscular Hgb Conc 31.9 g/dL (32-36); Mean Corpuscular Volume 93.8 fL (80-100); Mean Platelet Volume 7.9 fL (7.4-10.4); Monocytes # (auto) 1.02 K/uL (0.11-0.59); Monocytes % (auto) 9.7 %; Platelet Count 765 K/uL (130-400); RDW Coefficient of Variation 14.5 % (11.5-14.5); Red Blood Count 2.74 M/uL (4.2-5.4); White Blood Count 10.52 K/uL (4.8-10.8)
[2020-11-05 11:25] LABS: BUN Creatinine Ratio 33.1 (10-20); Calcium 11.2 mg/dl (8.5-10.1); Creatinine Clr Calc Pharmacy 117.8 ml/min; Est GFR (African American) 133.5 ml/min; Est GFR (Non-African American) 115.2 ml/min; Potassium 4.5 mmol/L (3.5-5.1)
[2020-11-05 11:29] LABS: Ferritin 1107.5 ng/ml (8-388)
--- NOTE | 2020-11-05 11:36 | Psychiatric Consultation ---
Date of Consultation November 05, 2020 Impression / Recommendations Impression This is a 50-year-old female who presented with a foot wound which required amputation as well as antibiotic therapy. Seems like patient had some stroke deficits at baseline since speaking seems to be difficult for her. Although at this time delirium is likely contributing to the clinical picture. However based on patient's response to questions it seems that she will benefit from medication to address her mood which she is agreeable to. Recommendations: Start venlafaxine 37.5 mg p.o. every morning when medically appropriate to do so. Psychiatry will continue to follow patient. Psych History Identifying Data 50-year-old female who presented with metabolic encephalopathy secondary to leg wound which required amputation. Patient is currently undergoing antibiotic therapy and displayed some low mood low energy which prompted psychiatric consult for concerns of depression. Chief Complaint sad mood History of Present Illness HPI as per psychiatric liaison "Rounded on patient this morning x 2. Pt. unable to hold conversation with Liaison and Psychiatrist. She did shake her head "no" when asked about any mental health history, family history or SI/past attempts. She did shake her head "yes" to confirm that she is sad. She appears to be oriented to person only at this time. She did smile and made eye contact when asked about her grandson. She was reoriented to date, time and place. She did shake her head "yes" when asked if she would be willing to take medication to help with her mood. Our service will continue to follow, and be available for any questions/concerns." Upon evaluation this morning, patient was unable to state the date. Believed that the month was September and was unsure of the year. She did acknowledge that she has a low mood but she denied any suicidal ideation. She denied any family history of mental health problems. The accuracy and validity of her statements are in question due to her seemingly somewhat delirious state. When patient did speak she often slurred her words and would make one-word answers or use her head nods to communicate. She was agreeable to start medication to augment her mood. Allergies Allergy/AdvReac Type Severity Reaction Status Date / Time No Known Allergies Allergy Verified 10/18/20 18:10 Home Medications Medication Instructions Recorded Confirmed Type aspirin 81 mg tablet,delayed 81 mg PO DAILY 08/28/19 10/18/20 History release atorvastatin 40 mg tablet 40 mg PO DAILY 08/28/19 10/18/20 History clopidogrel 75 mg tablet (Plavix) 75 mg PO DAILY 08/28/19 10/18/20 History fesoterodine 8 mg tablet,extended 8 mg PO DAILY 08/28/19 10/18/20 History release 24 hr (Toviaz) insulin aspart U-100 100 unit/mL 0 unit SUBCUT ACHS 08/28/19 10/18/20 History (3 mL) subcutaneous pen (Novolog Flexpen U-100 Insulin aspart) lisinopril 20 mg tablet 20 mg PO DAILY 08/28/19 10/18/20 History metformin 500 mg tablet 500 mg PO BID 08/28/19 10/18/20 History metoprolol succinate 50 mg 50 mg PO DAILY 08/28/19 10/18/20 History tablet,extended release 24 hr pediatric multivitamin 2 tab PO DAILY 08/28/19 10/18/20 History insulin glargine 100 unit/mL (3 50 unit SUBCUT HS 10/28/20 10/28/20 History mL) subcutaneous pen (Lantus Solostar U-100 Insulin) Personal History Beliefs That Will Affect Care: None Patient History Medical History (Updated 10/25/20 @ 14:16 by Kirill Muñoz MD) Chronic hypertension Diabetes Diabetic wet gangrene of the foot PVD (peripheral vascular disease) Right middle cerebral artery stroke Surgical History (Updated 10/26/20 @ 17:54 by Luis A Vieira MD) History of cholecystectomy Status post amputation of leg Social History Smoking Status: Never smoker Preferred Language: Korean Communication Ability: Impaired Communication Ability Comment: hx of r mca stroke Trouble Dispatcher Required: No Beliefs That Will Affect Care: None Current Living Situation: Spouse Current Living Situation Comment: ? neglect Feels Safe at Home: Yes Assistive Devices: None Physical Exam Psychiatric: Orientation: alert and oriented to person; + not oriented to time Apperance: + disheveled Eye Contact: + poor eye contact Motor Behavior: + psychomotor retardation Speech: + mute Affect: + blunted affect and + constricted affect Mood: + depressed mood and + dysphoric mood Thought Process: + thought blocking and + concrete thought process Able to respond logically to questions Suicidal Thoughts: + reports suicidal thoughts Homicidal Thoughts: + reports homicidal thoughts Denies Insight: + limited insight Judgement: + limited judgement Vital Signs (Past 24 Hours): Last Vital Signs Temp 36.8 C 11/05/20 07:43 Pulse 81 11/05/20 07:37 Resp 16 11/05/20 07:43 BP 125/56 L 11/05/20 07:43 Pulse Ox 94 11/05/20 07:43 Review of Systems Unobtainable due to cognitive status Results & Data (PSY) Medications Administered Acetaminophen (Acetaminophen 500 Mg Tab) 1,000 mg PO Q8H [facility] Stop: 11/21/20 20:59 Last Admin: 11/05/20 05:34 Dose: Not Given Documented by: [id number] Admin: 11/04/20 21:05 Dose: 1,000 mg Documented by: [id number] Admin: 11/04/20 12:32 Dose: 1,000 mg Documented by: [id number] Admin: 11/04/20 05:48 Dose: Not Given Documented by: [id number] Admin: 11/03/20 21:39 Dose: 1,000 mg Documented by: [id number] Admin: 11/03/20 12:28 Dose: 1,000 mg Documented by: [id number] Admin: 11/03/20 05:50 Dose: Not Given Documented by: [id number] Admin: 11/02/20 21:18 Dose: 1,000 mg Documented by: [id number] Admin: 11/02/20 14:45 Dose: Not Given Documented by: [id number] Admin: 11/02/20 06:06 Dose: 1,000 mg Documented by: [id number] Admin: 11/01/20 20:00 Dose: 1,000 mg Documented by: [id number] Admin: 11/01/20 12:30 Dose: 1,000 mg Documented by: [id number] Admin: 11/01/20 06:02 Dose: 1,000 mg Documented by: [id number] Admin: 10/31/20 20:55 Dose: 1,000 mg Documented by: [id number] Admin: 10/31/20 12:36 Dose: 1,000 mg Documented by: [id number] Admin: 10/31/20 04:47 Dose: 1,000 mg Documented by: [id number] Admin: 10/30/20 20:48 Dose: 1,000 mg Documented by: [id number] Admin: 10/30/20 13:42 Dose: 1,000 mg Documented by: [id number] Admin: 10/30/20 05:01 Dose: Not Given Documented by: [id number] Admin: 10/29/20 21:02 Dose: 1,000 mg Documented by: [id number] Admin: 10/29/20 13:05 Dose: 1,000 mg Documented by: [id number] Admin: 10/29/20 05:15 Dose: 1,000 mg Documented by: [id number] Admin: 10/28/20 20:06 Dose: 1,000 mg Documented by: [id number] Admin: 10/28/20 12:50 Dose: 1,000 mg Documented by: [id number] Admin: 10/28/20 06:07 Dose: 1,000 mg Documented by: [id number] Admin: 10/27/20 21:40 Dose: 1,000 mg Documented by: [id number] Admin: 10/27/20 13:25 Dose: 1,000 mg Documented by: [id number] Admin: 10/27/20 05:40 Dose: Not Given Documented by: [id number] Admin: 10/26/20 20:55 Dose: 1,000 mg Documented by: [id number] Admin: 10/26/20 13:19 Dose: 1,000 mg Documented by: [id number] Admin: 10/26/20 05:32 Dose: 1,000 mg Documented by: [id number] Admin: 10/25/20 20:10 Dose: 1,000 mg Documented by: [id number] Admin: 10/25/20 12:16 Dose: Not Given Documented by: [id number] Admin: 10/25/20 03:56 Dose: 1,000 mg Documented by: [id number] Admin: 10/24/20 21:14 Dose: 1,000 mg Documented by: [id number] Admin: 10/24/20 12:23 Dose: 1,000 mg Documented by: [id number] Admin: 10/24/20 04:49 Dose: 1,000 mg Documented by: [id number] Admin: 10/23/20 21:34 Dose: 1,000 mg Documented by: [id number] Admin: 10/23/20 12:31 Dose: 1,000 mg Documented by: [id number] Admin: 10/23/20 04:45 Dose: 1,000 mg Documented by: [id number] Admin: 10/22/20 21:35 Dose: 1,000 mg Documented by: [id number] Amoxicillin/Clavulanate Potassium (Amoxicillin/Clavulanate 875 Mg Tab) 1 tab PO BIDM [facility] Stop: 12/12/20 16:59 Last Admin: 11/05/20 09:01 Dose: 1 tab Documented by: [id number] Admin: 11/04/20 18:06 Dose: 1 tab Documented by: [id number] Admin: 11/04/20 09:56 Dose: 1 tab Documented by: [id number] Admin: 11/03/20 17:32 Dose: 1 tab Documented by: [id number] Admin: 11/03/20 09:04 Dose: 1 tab Documented by: [id number] Admin: 11/02/20 17:32 Dose: 1 tab Documented by: [id number] Admin: 11/02/20 10:22 Dose: 1 tab Documented by: [id number] Admin: 11/01/20 17:38 Dose: 1 tab Documented by: [id number] Admin: 11/01/20 08:41 Dose: 1 tab Documented by: [id number] Admin: 10/31/20 17:48 Dose: 1 tab Documented by: [id number] Ascorbic Acid (Ascorbic Acid 500 Mg Tab) 1,000 mg PO QAM [facility] Stop: 12/05/20 08:59 Last Admin: 11/05/20 09:01 Dose: 1,000 mg Documented by: [id number] Aspirin (Aspirin 81 Mg Ectab) 81 mg PO DAILY [facility] Stop: 11/18/20 08:59 Last Admin: 11/05/20 09:01 Dose: 81 mg Documented by: [id number] Admin: 11/04/20 09:58 Dose: 81 mg Documented by: [id number] Admin: 11/03/20 09:09 Dose: 81 mg Documented by: [id number] Admin: 11/02/20 10:23 Dose: 81 mg Documented by: [id number] Admin: 11/01/20 08:41 Dose: 81 mg Documented by: [id number] Admin: 10/31/20 08:41 Dose: 81 mg Documented by: [id number] Admin: 10/30/20 08:03 Dose: 81 mg Documented by: [id number] Admin: 10/29/20 08:38 Dose: 81 mg Documented by: [id number] Admin: 10/28/20 08:17 Dose: 81 mg Documented by: [id number] Admin: 10/27/20 09:57 Dose: 81 mg Documented by: [id number] Admin: 10/26/20 07:46 Dose: 81 mg Documented by: [id number] Admin: 10/25/20 08:35 Dose: Not Given Documented by: [id number] Admin: 10/24/20 09:11 Dose: 81 mg Documented by: [id number] Admin: 10/23/20 08:45 Dose: 81 mg Documented by: [id number] Admin: 10/22/20 08:50 Dose: 81 mg Documented by: [id number] Admin: 10/21/20 08:06 Dose: 81 mg Documented by: [id number] Admin: 10/20/20 08:16 Dose: 81 mg Documented by: [id number] Admin: 10/19/20 10:50 Dose: Not Given Documented by: [id number] Atorvastatin Calcium (Atorvastatin 40 Mg Tab) 40 mg PO DAILY [facility] Stop: 11/18/20 08:59 Last Admin: 11/05/20 09:01 Dose: 40 mg Documented by: [id number] Admin: 11/04/20 09:58 Dose: 40 mg Documented by: [id number] Admin: 11/03/20 09:09 Dose: 40 mg Documented by: [id number] Admin: 11/02/20 10:22 Dose: 40 mg Documented by: [id number] Admin: 11/01/20 08:41 Dose: 40 mg Documented by: [id number] Admin: 10/31/20 08:41 Dose: 40 mg Documented by: [id number] Admin: 10/30/20 08:04 Dose: 40 mg Documented by: [id number] Admin: 10/29/20 08:38 Dose: 40 mg Documented by: [id number] Admin: 10/28/20 08:18 Dose: 40 mg Documented by: [id number] Admin: 10/27/20 09:57 Dose: 40 mg Documented by: [id number] Admin: 10/26/20 07:46 Dose: 40 mg Documented by: [id number] Admin: 10/25/20 08:24 Dose: 40 mg Documented by: [id number] Admin: 10/24/20 09:11 Dose: 40 mg Documented by: [id number] Admin: 10/23/20 08:44 Dose: 40 mg Documented by: [id number] Admin: 10/22/20 08:50 Dose: 40 mg Documented by: [id number] Admin: 10/21/20 08:06 Dose: 40 mg Documented by: [id number] Admin: 10/20/20 08:17 Dose: 40 mg Documented by: [id number] Admin: 10/19/20 10:50 Dose: Not Given Documented by: [id number] Clopidogrel Bisulfate (Clopidogrel Bisulfate 75 Mg Tab) 75 mg PO DAILY [facility] Stop: 11/18/20 08:59 Last Admin: 11/05/20 09:01 Dose: 75 mg Documented by: [id number] Admin: 11/04/20 09:57 Dose: 75 mg Documented by: [id number] Admin: 11/03/20 09:09 Dose: 75 mg Documented by: [id number] Admin: 11/02/20 10:22 Dose: 75 mg Documented by: [id number] Admin: 11/01/20 08:41 Dose: 75 mg Documented by: [id number] Admin: 10/31/20 08:41 Dose: 75 mg Documented by: [id number] Admin: 10/30/20 08:04 Dose: 75 mg Documented by: [id number] Admin: 10/29/20 08:38 Dose: 75 mg Documented by: [id number] Admin: 10/28/20 08:18 Dose: 75 mg Documented by: [id number] Admin: 10/27/20 09:57 Dose: 75 mg Documented by: [id number] Admin: 10/26/20 07:46 Dose: 75 mg Documented by: [id number] Admin: 10/25/20 08:35 Dose: Not Given Documented by: [id number] Admin: 10/24/20 09:11 Dose: 75 mg Documented by: [id number] Admin: 10/23/20 08:44 Dose: 75 mg Documented by: [id number] Admin: 10/22/20 08:50 Dose: 75 mg Documented by: [id number] Admin: 10/21/20 08:06 Dose: 75 mg Documented by: [id number] Admin: 10/20/20 08:13 Dose: 75 mg Documented by: [id number] Admin: 10/19/20 10:50 Dose: Not Given Documented by: [id number] Glucose (Glucose 10 Tabs/Tube) 4 - 8 tabs PO UD PRN; Protocol PRN Reason: Hypoglycemia Protocol Stop: 11/17/20 23:14 Last Admin: 11/02/20 16:38 Dose: 4 tabs Documented by: [id number] Heparin Sodium (Porcine) (Heparin Sod 5,000 Unit/0.5 Ml Vial) 5,000 units SQ Q12 [facility] Stop: 11/18/20 20:59 Last Admin: 11/05/20 09:02 Dose: 5,000 units Documented by: [id number] Admin: 11/04/20 21:05 Dose: 5,000 units Documented by: [id number] Admin: 11/04/20 09:59 Dose: 5,000 units Documented by: [id number] Admin: 11/03/20 21:39 Dose: 5,000 units Documented by: [id number] Admin: 11/03/20 09:09 Dose: 5,000 units Documented by: [id number] Admin: 11/02/20 21:18 Dose: 5,000 units Documented by: [id number] Admin: 11/02/20 10:36 Dose: 5,000 units Documented by: [id number] Admin: 11/01/20 21:02 Dose: 5,000 units Documented by: [id number] Admin: 11/01/20 08:40 Dose: 5,000 units Documented by: [id number] Admin: 10/31/20 20:56 Dose: 5,000 units Documented by: [id number] Admin: 10/31/20 08:42 Dose: 5,000 units Documented by: [id number] Admin: 10/30/20 20:49 Dose: 5,000 units Documented by: [id number] Admin: 10/30/20 08:04 Dose: 5,000 units Documented by: [id number] Admin: 10/29/20 21:02 Dose: 5,000 units Documented by: [id number] Admin: 10/29/20 08:39 Dose: 5,000 units Documented by: [id number] Admin: 10/28/20 20:07 Dose: 5,000 units Documented by: [id number] Admin: 10/28/20 08:34 Dose: 5,000 units Documented by: [id number] Admin: 10/27/20 21:40 Dose: 5,000 units Documented by: [id number] Admin: 10/27/20 09:58 Dose: 5,000 units Documented by: [id number] Admin: 10/26/20 20:56 Dose: 5,000 units Documented by: [id number] Admin: 10/26/20 07:43 Dose: 5,000 units Documented by: [id number] Admin: 10/25/20 20:11 Dose: 5,000 units Documented by: [id number] Admin: 10/25/20 08:35 Dose: Not Given Documented by: [id number] Admin: 10/24/20 21:15 Dose: 5,000 units Documented by: [id number] Admin: 10/24/20 09:12 Dose: 5,000 units Documented by: [id number] Admin: 10/23/20 21:33 Dose: 5,000 units Documented by: [id number] Admin: 10/23/20 08:44 Dose: 5,000 units Documented by: [id number] Admin: 10/22/20 20:05 Dose: 5,000 units Documented by: [id number] Admin: 10/22/20 09:34 Dose: 5,000 units Documented by: [id number] Admin: 10/21/20 21:03 Dose: 5,000 units Documented by: [id number] Admin: 10/21/20 08:06 Dose: 5,000 units Documented by: [id number] Admin: 10/20/20 21:00 Dose: 5,000 units Documented by: [id number] Admin: 10/20/20 08:17 Dose: 5,000 units Documented by: [id number] Admin: 10/19/20 20:35 Dose: 5,000 units Documented by: [id number] Insulin Aspart (Insulin Aspart 100 Units/Ml 3 Ml Pen) 0 units SC [facility]; Protocol Stop: 11/22/20 16:29 Last Admin: 11/05/20 08:56 Dose: 3 units Documented by: [id number] Cosigned by: [id number] Admin: 11/04/20 21:01 Dose: Not Given Documented by: [id number] Admin: 11/04/20 18:10 Dose: Not Given Documented by: [id number] Admin: 11/04/20 12:52 Dose: 10 units Documented by: [id number] Cosigned by: [id number] Admin: 11/04/20 09:54 Dose: Not Given Documented by: [id number] Admin: 11/03/20 22:18 Dose: Not Given Documented by: [id number] Cosigned by: [id number] Admin: 11/03/20 17:54 Dose: 3 units Documented by: [id number] Cosigned by: [id number] Admin: 11/03/20 12:34 Dose: 22 units Documented by: [id number] Cosigned by: [id number] Admin: 11/03/20 09:04 Dose: 6 units Documented by: [id number] Cosigned by: [id number] Admin: 11/02/20 21:10 Dose: Not Given Documented by: [id number] Cosigned by: [id number] Admin: 11/02/20 17:26 Dose: Not Given Documented by: [id number] Admin: 11/02/20 12:36 Dose: 23 units Documented by: [id number] Cosigned by: [id number] Admin: 11/02/20 10:24 Dose: 36 units Documented by: [id number] Cosigned by: [id number] Admin: 11/01/20 20:57 Dose: Not Given Documented by: [id number] Cosigned by: [id number] Admin: 11/01/20 17:43 Dose: 2 units Documented by: [id number] Cosigned by: [id number] Admin: 11/01/20 12:31 Dose: 21 units Documented by: [id number] Cosigned by: [id number] Admin: 11/01/20 08:44 Dose: 19 units Documented by: [id number] Cosigned by: [id number] Admin: 10/31/20 21:31 Dose: Not Given Documented by: [id number] Cosigned by: [id number] Admin: 10/31/20 17:49 Dose: 10 units Documented by: [id number] Cosigned by: [id number] Admin: 10/31/20 12:38 Dose: 11 units Documented by: [id number] Cosigned by: [id number] Admin: 10/31/20 08:44 Dose: 30 units Documented by: [id number] Cosigned by: [id number] Admin: 10/30/20 21:00 Dose: 8 units Documented by: [id number] Cosigned by: [id number] Admin: 10/30/20 17:13 Dose: 15 units Documented by: [id number] Cosigned by: [id number] Admin: 10/30/20 12:20 Dose: 23 units Documented by: [id number] Cosigned by: [id number] Admin: 10/30/20 08:07 Dose: 27 units Documented by: [id number] Cosigned by: [id number] Admin: 10/29/20 21:03 Dose: 8 units Documented by: [id number] Cosigned by: [id number] Admin: 10/29/20 17:54 Dose: 14 units Documented by: [id number] Cosigned by: [id number] Admin: 10/29/20 13:04 Dose: 17 units Documented by: [id number] Cosigned by: [id number] Admin: 10/29/20 08:40 Dose: 30 units Documented by: [id number] Cosigned by: [id number] Admin: 10/28/20 20:08 Dose: 2 units Documented by: [id number] Cosigned by: [id number] Admin: 10/28/20 18:15 Dose: 12 units Documented by: [id number] Cosigned by: [id number] Admin: 10/28/20 12:48 Dose: 25 units Documented by: [id number] Cosigned by: [id number] Admin: 10/28/20 08:30 Dose: 31 units Documented by: [id number] Cosigned by: [id number] Admin: 10/27/20 21:40 Dose: 14 units Documented by: [id number] Cosigned by: [id number] Admin: 10/27/20 17:31 Dose: 8 units Documented by: [id number] Cosigned by: [id number] Admin: 10/27/20 12:56 Dose: 19 units Documented by: [id number] Cosigned by: [id number] Admin: 10/27/20 09:48 Dose: 27 units Documented by: [id number] Cosigned by: [id number] Admin: 10/26/20 20:56 Dose: Not Given Documented by: [id number] Cosigned by: [id number] Admin: 10/26/20 17:34 Dose: 15 units Documented by: [id number] Cosigned by: [id number] Admin: 10/26/20 13:16 Dose: 10 units Documented by: [id number] Cosigned by: [id number] Admin: 10/26/20 09:47 Dose: 10 units Documented by: [id number] Admin: 10/25/20 21:40 Dose: Not Given Documented by: [id number] Cosigned by: [id number] Admin: 10/25/20 17:38 Dose: Not Given Documented by: [id number] Cosigned by: [id number] Admin: 10/25/20 11:50 Dose: 5 units Documented by: [id number] Cosigned by: [id number] Admin: 10/25/20 08:14 Dose: 8 units Documented by: [id number] Cosigned by: [id number] Admin: 10/24/20 21:33 Dose: 11 units Documented by: [id number] Cosigned by: [id number] Admin: 10/24/20 17:25 Dose: 29 units Documented by: [id number] Cosigned by: [id number] Admin: 10/24/20 12:37 Dose: 18 units Documented by: [id number] Cosigned by: [id number] Admin: 10/24/20 09:00 Dose: 23 units Documented by: [id number] Cosigned by: [id number] Admin: 10/23/20 21:45 Dose: 10 units Documented by: [id number] Cosigned by: [id number] Admin: 10/23/20 17:50 Dose: 14 units Documented by: [id number] Cosigned by: [id number] Insulin Glargine (Insulin Glargine Solostar 100 Units/Ml 3 Ml Pen) 0 units SC DAILY [facility]; Protocol Stop: 12/04/20 08:59 Last Admin: 11/05/20 08:57 Dose: 100 units Documented by: [id number] Cosigned by: [id number] Admin: 11/04/20 10:27 Dose: 80 units Documented by: [id number] Cosigned by: [id number] Lisinopril (Lisinopril 20 Mg Tab) 20 mg PO DAILY [facility] Stop: 11/18/20 08:59 Last Admin: 11/05/20 09:02 Dose: 20 mg Documented by: [id number] Admin: 11/04/20 09:57 Dose: 20 mg Documented by: [id number] Admin: 11/03/20 09:09 Dose: 20 mg Documented by: [id number] Admin: 11/02/20 10:22 Dose: 20 mg Documented by: [id number] Admin: 11/01/20 08:41 Dose: 20 mg Documented by: [id number] Admin: 10/31/20 08:42 Dose: 20 mg Documented by: [id number] Admin: 10/30/20 08:06 Dose: 20 mg Documented by: [id number] Admin: 10/29/20 08:39 Dose: 20 mg Documented by: [id number] Admin: 10/28/20 08:18 Dose: 20 mg Documented by: [id number] Admin: 10/27/20 09:56 Dose: 20 mg Documented by: [id number] Admin: 10/26/20 07:45 Dose: 20 mg Documented by: [id number] Admin: 10/25/20 08:23 Dose: 20 mg Documented by: [id number] Admin: 10/24/20 09:11 Dose: 20 mg Documented by: [id number] Admin: 10/23/20 08:45 Dose: 20 mg Documented by: [id number] Admin: 10/22/20 08:50 Dose: 20 mg Documented by: [id number] Admin: 10/21/20 08:03 Dose: 20 mg Documented by: [id number] Admin: 10/20/20 08:18 Dose: 20 mg Documented by: [id number] Admin: 10/19/20 10:50 Dose: Not Given Documented by: [id number] Metoprolol Succinate (Metoprolol Succ 50mg Ext Rel Tab) 50 mg PO DAILY [facility] Stop: 11/18/20 08:59 Last Admin: 11/05/20 09:01 Dose: 50 mg Documented by: [id number] Admin: 11/04/20 09:57 Dose: 50 mg Documented by: [id number] Admin: 11/03/20 09:09 Dose: 50 mg Documented by: [id number] Admin: 11/02/20 10:23 Dose: 50 mg Documented by: [id number] Admin: 11/01/20 08:41 Dose: 50 mg Documented by: [id number] Admin: 10/31/20 08:41 Dose: 50 mg Documented by: [id number] Admin: 10/30/20 08:04 Dose: 50 mg Documented by: [id number] Admin: 10/29/20 08:39 Dose: 50 mg Documented by: [id number] Admin: 10/28/20 08:17 Dose: 50 mg Documented by: [id number] Admin: 10/27/20 09:56 Dose: 50 mg Documented by: [id number] Admin: 10/26/20 07:45 Dose: 50 mg Documented by: [id number] Admin: 10/25/20 08:24 Dose: 50 mg Documented by: [id number] Admin: 10/24/20 09:11 Dose: 50 mg Documented by: [id number] Admin: 10/23/20 08:44 Dose: 50 mg Documented by: [id number] Admin: 10/22/20 08:50 Dose: 50 mg Documented by: [id number] Admin: 10/21/20 08:05 Dose: 50 mg Documented by: [id number] Admin: 10/20/20 08:17 Dose: 50 mg Documented by: [id number] Admin: 10/19/20 10:50 Dose: Not Given Documented by: [id number] Metoprolol Tartrate (Metoprolol Tartrate 1 Mg/Ml Vial) 2.5 mg IV Q6 PRN PRN Reason: SBP > 160 Stop: 11/18/20 11:59 Last Admin: 10/29/20 21:22 Dose: 2.5 mg Documented by: [id number] Admin: 10/28/20 23:34 Dose: 2.5 mg Documented by: [id number] Admin: 10/20/20 03:18 Dose: 2.5 mg Documented by: [id number] Admin: 10/19/20 20:36 Dose: 2.5 mg Documented by: [id number] Admin: 10/19/20 11:10 Dose: 2.5 mg Documented by: [id number] Miscellaneous (Carbohydrates For Hypoglycemia ) 15 - 30 gm PO PRN PRN PRN Reason: Hypoglycemia Treatment Stop: 11/17/20 23:14 Last Admin: 11/03/20 17:02 Dose: 15 gm Documented by: [id number] Admin: 11/02/20 16:12 Dose: 30 gm Documented by: [id number] Admin: 11/02/20 14:53 Dose: 30 gm Documented by: [id number] Multivitamins/Minerals (Cerovite Adv Formula Tab) 1 tab PO QAM [facility] Stop: 12/05/20 08:59 Last Admin: 11/05/20 09:01 Dose: 1 tab Documented by: [id number] Oxycodone HCl (Oxycodone Hcl Ir 5 Mg Tab (Immediate Release)) 5 mg PO Q4H PRN PRN Reason: MODERATE Pain (4,5,6) & Pre PT Stop: 11/08/20 18:29 Last Admin: 11/04/20 21:04 Dose: 5 mg Documented by: [id number] Admin: 11/03/20 23:30 Dose: 5 mg Documented by: [id number] Admin: 11/02/20 23:27 Dose: 5 mg Documented by: [id number] Admin: 11/01/20 13:38 Dose: 5 mg Documented by: [id number] Admin: 10/31/20 13:49 Dose: 5 mg Documented by: [id number] Admin: 10/30/20 13:41 Dose: 5 mg Documented by: [id number] Admin: 10/30/20 01:32 Dose: 5 mg Documented by: [id number] Admin: 10/28/20 22:50 Dose: 5 mg Documented by: [id number] Admin: 10/28/20 15:39 Dose: 5 mg Documented by: [id number] Admin: 10/28/20 08:11 Dose: 5 mg Documented by: [id number] Admin: 10/27/20 14:24 Dose: 5 mg Documented by: [id number] Admin: 10/26/20 13:14 Dose: 5 mg Documented by: [id number] Oxycodone HCl (Oxycodone Hcl Ir 5 Mg Tab (Immediate Release)) 10 mg PO Q4H PRN PRN Reason: SEVERE Pain (7,8,9,10) Stop: 11/08/20 18:29 Last Admin: 11/03/20 14:31 Dose: 10 mg Documented by: [id number] Admin: 11/02/20 12:35 Dose: 10 mg Documented by: [id number] Admin: 10/31/20 22:06 Dose: 10 mg Documented by: [id number] Admin: 10/31/20 09:50 Dose: 10 mg Documented by: [id number] Admin: 10/29/20 11:01 Dose: 10 mg Documented by: [id number] Admin: 10/26/20 06:30 Dose: 10 mg Documented by: [id number] Polyethylene Glycol (Polyethylene (Miralax) 17 Gm Pack) 17 gm PO DAILY [facility] Stop: 11/28/20 11:29 Last Admin: 11/05/20 09:03 Dose: Not Given Documented by: [id number] Admin: 11/04/20 10:00 Dose: Not Given Documented by: [id number] Admin: 11/03/20 09:11 Dose: Not Given Documented by: [id number] Admin: 11/02/20 10:24 Dose: 17 gm Documented by: [id number] Admin: 11/01/20 08:46 Dose: 17 gm Documented by: [id number] Admin: 10/31/20 08:57 Dose: Not Given Documented by: [id number] Admin: 10/30/20 08:04 Dose: 17 gm Documented by: [id number] Admin: 10/29/20 12:01 Dose: 17 gm Documented by: [id number] Simethicone (Simethicone 40 Mg/0.6 Ml 30ml) 40 mg PO Q4H PRN PRN Reason: Gas Retention Stop: 11/28/20 14:53 Last Admin: 10/31/20 11:24 Dose: 40 mg Documented by: [id number] Admin: 10/30/20 09:29 Dose: 40 mg Documented by: [id number] Admin: 10/29/20 16:03 Dose: 40 mg Documented by: [id number] Thiamine HCl (Thiamine Hcl 100 Mg Tab) 100 mg PO QAM [facility] Stop: 12/05/20 08:59 Last Admin: 11/05/20 09:01 Dose: 100 mg Documented by: [id number] Coding Level of Care Code 00492 U Intl Hosp Care Lvl 2
[2020-11-05 12:10] LABS: Folate (Folic Acid) 16.7 ng/ml (>5.38)
[2020-11-05] MEDS: oxyCODONE HCL IR 5 MG TAB (IMMEDIATE RELEASE) PO PRN (14:05)
[2020-11-05] MEDS: oxyCODONE HCL 10 MG TABCR (OxyCONTIN) PO SCH ×2 (17:32→21:01)
--- NOTE | 2020-11-05 18:29 | Billing Data ---
Date of Service November 05, 2020 Coding Level of Care Code 61046 Subseq Hosp Care Lvl 3
[2020-11-06] MEDS: ACETAMINOPHEN 500 MG TAB PO SCH ×3 (04:03→22:02)
[2020-11-06 07:58] LABS: Basophils # (auto) 0.08 K/uL (0-0.2); Basophils % (auto) 0.7 %; Eosinophils % (auto) 6.6 %; Hematocrit (blood only) 24.7 % (37-47); Hemoglobin 7.8 g/dL (12.0-16.0); Immature Granulocytes # (auto) 0.05 K/uL (0.00-0.02); Immature Granulocytes % (auto) 0.5 %; Lymphocytes # (auto) 3.48 K/uL (1.2-3.4); Lymphocytes % (auto) 32.6 %; Mean Corpuscular Hemoglobin 29.3 pg (25-34); Mean Corpuscular Hgb Conc 31.6 g/dL (32-36); Mean Corpuscular Volume 92.9 fL (80-100); Mean Platelet Volume 8.1 fL (7.4-10.4); Monocytes % (auto) 11.2 %; Neutrophils # (auto) 5.17 K/uL (1.4-6.5); Neutrophils % (auto) 48.4 %; Platelet Count 762 K/uL (130-400); RDW Coefficient of Variation 14.6 % (11.5-14.5); RDW Standard Deviation 48.9 fL (36.4-46.3); Red Blood Count 2.66 M/uL (4.2-5.4); White Blood Count 10.68 K/uL (4.8-10.8)
[2020-11-06 08:08] LABS: BUN Creatinine Ratio 37.1 (10-20); Calcium 10.9 mg/dl (8.5-10.1); Creatinine Clr Calc Pharmacy 128.5 ml/min; Est GFR (African American) 137.5 ml/min; Est GFR (Non-African American) 118.6 ml/min; Potassium 4.2 mmol/L (3.5-5.1)
[2020-11-06 08:25] LABS: Anisocytosis Present
[2020-11-06] MEDS: METOPROLOL SUCC 50MG EXT REL TAB PO SCH (09:18)
[2020-11-06] MEDS: AMOXICILLIN/CLAVULANATE 875 MG TAB PO SCH ×2 (09:18→17:31)
[2020-11-06] MEDS: ASPIRIN 81 MG ECTAB PO SCH (09:18)
[2020-11-06] MEDS: POLYETHYLENE (MIRALAX) 17 GM PACK PO SCH (09:19)
[2020-11-06] MEDS: CEROVITE ADV FORMULA TAB PO SCH (09:19)
[2020-11-06] MEDS: CLOPIDOGREL BISULFATE 75 MG TAB PO SCH (09:19)
[2020-11-06] MEDS: ATORVASTATIN 40 MG TAB PO SCH (09:19)
[2020-11-06] MEDS: THIAMINE HCL 100 MG TAB PO SCH (09:19)
[2020-11-06] MEDS: lisinopril 20 MG TAB PO SCH (09:19)
[2020-11-06] MEDS: INSULIN GLARGINE SOLOSTAR 100 UNITS/ML 3 ML PEN SC SCH (09:23)
[2020-11-06] MEDS: oxyCODONE HCL 10 MG TABCR (OxyCONTIN) PO SCH ×2 (09:27→22:01)
[2020-11-06] MEDS: INSULIN ASPART 100 UNITS/ML 3 ML PEN SC SCH ×4 (09:36→21:50)
[2020-11-06] MEDS: ASCORBIC ACID 500 MG TAB PO SCH (09:38)
[2020-11-06] MEDS: HEPARIN SOD 5,000 UNIT/0.5 ML VIAL SQ SCH ×2 (09:38→22:01)
[2020-11-06] MEDS: FERROUS GLUCONATE 324 MG TAB PO SCH (10:03)
--- NOTE | 2020-11-06 14:32 | Hospitalist Progress Note ---
Date of Service November 06, 2020 Assessment & Plan (1) Diabetic wet gangrene of the foot: Plan: Seema Ramos is a 50yo female with history of DM2, CVA, HTN, HLD who presented with a gangrenous diabetic left foot ulcer on 10/18 who then underwent LLE BKA on 10/25. Stable, currently pending placement. Sepsis secondary to diabetic gangrenous ulcer of L foot, resolved Worsening infection occurred in the setting of uncontrolled DM2, DKA (see below) . Ceftriaxone IV initiated on 10/18, LLE BKE performed by Ortho on 10/25, Daptomycin IV started on 10/25 and transitioned to Augmentin on 10/31. - Wound cultures obtained on day of BKA notable for E. faecalis and P. mirabilis; daptomycin IV initiated - Continue wound care, appreciate ongoing recommendations - Continue Augmentin 875/125mg PO BID for ~4 weeks, starting from 10/25 - Continue acetaminophen and oxycodone PRN pain - Trend daily CBC, BMP - Case management working on placement - Continue PT/OT Delirium, resolving Patient with acute-onset behavioral changes on 11/04 - A+Ox1-2 and intermittently confused; improving as of today. Etiology likely multifactorial: differential includes anxiety/depression/stress, infection, metabolic/electrolyte disturbances given recent poor PO intake, long-term hospitalization, low baseline functioning - Per , patient has chronic waxing and waning depressive symptoms and suicidal ideation - continue to monitor T2DM - Patient noted to be in DKA on admission; DKA resolved on hospital day three - HbA1c 12.9% (10/19/20) - Patient's pre-hospitalization medication regimen adherence unclear; T2DM very poorly-controlled likely secondary to many factors including social stressors, caregiver education, other factors - SSI + Lantus while hospitalized - Glycemic consult - appreciate recs HTN/HLD - Continue home lisinopril, metoprolol, and statin History of CVA - Continue home statin, ASA, clopidogrel Normocytic Anemia Likely multifactorial: anemia of chronic disease (given above-mentioned problems) and iron-deficiency (given low iron and ferritin). - started ferrous gluconate 324mg PO QAM, continue after discharge - Trend daily CBC Thrombocytosis - Likely represents acute phase reactant s/p surgery - Trend daily CBC Varicella zoster, resolved - Patient with suspected VZV rash on admission, which resolved after a seven-day course of Valacyclovir Disposition Planning -Case management following, currently working on SNF or inpatient rehab placement -Inpatient rehab denied by insurance despite patient with new disabilities and challenging recovery in the setting of poor pre-hospitalization functioning with multiple uncontrolled comorbidities -CM, Dr. Woods currently appealing this decision FEN/GI: carb-consistent, minced and moist diet Code Status: DNR/DNI DVT PPX: Heparin 5000 units SQ Q12H, Clopidogrel Dispo: med/surg, CM assisting with SNF placement (2) Sepsis: (3) Decubitus ulcer of left heel: (4) DKA (diabetic ketoacidosis): (5) Cellulitis: (6) Acute metabolic encephalopathy: Admission and Anticipated Discharge Date Admission Date: October 18, 2020 Supervising Physician Co-Signing Physician Notes I personally examined the patient and verified all polanco points of history and exam, discussed case, and agree with decision making with Dr Bailey More alert and interactive, nursing notes that she has been more alert and interactive as well. Loosely seems to express that pain control is a little better, nursing corroborates that pain control seems a bit better. Vitals noted, resting comfortably no distress. HEENT normocephalic atraumatic mucous membranes moist. Breathing unlabored no accessory muscle use good effort. No focal neuro deficits. Stump/lower extremity appears to have incision healing well, some mild inflammatory changes but no exudate tracking erythema or dehiscence. No crepitus. Gangrenous foot in the context of peripheral vascular disease from longstanding uncontrolled diabetesnow status post amputation. Sepsis appears to have reso lved, now on p.o. antibiotics and appearing stable. Increasing pain medicine/addition of OxyContin seems to have helped not only pain control but her mental statussuggesting that uncontrolled pain may have also been a significant contributor to her delirium/encephalopathy. Type 1 diabeteslongstanding poor control, continue titrating insulins and following Altered mental statusappears to be an interplay of delirium/metabolic encephalopathy, as well as depression. Continue to reorient, try to offer empathy and support. Appreciate psychiatry input. See above, better pain control seems to have helped. DispositionSNF with rehab emphasis once possible. Subjective No acute events overnight. Patient is minimally conversational and has si gnificantly slurred and incoherent speech when attempting to converse. Denies pain. Remainder of HPI and ROS limited by mental status and speech difficulty. Review of Systems Review of Systems: Unobtainable due to cognitive status Physical Exam Physical Exam: General: A&Ox3. NAD. Cooperative. HEENT: Atraumatic, normocephalic. Pulm: CTAB A&P. -wheezes, -rales, -rhonchi. Symmetrical chest rise. No increase work of breathing. No respiratory distress. Cardiac: RRR, -mrg. Radial pulses intact and symmetrical. Abdominal: soft, non-tender, non-distended, BS x 4 Results & Data Results & Data ([facility]) Vital Signs (Past 12 Hours) Vital Signs Temp Pulse Pulse Resp BP Pulse Ox 11/06/20 07:48 36.8 C 92 H 16 139/78 97 11/06/20 07:05 82 11/06/20 04:05 36.7 C 85 20 124/76 95 Resident Activity Tracking Resident Involvement: Resident Care Provided Care Provided: Adult Hospital Medicine (1) DKA (diabetic ketoacidosis) Diabetes mellitus complication detail: without coma Diabetes mellitus type: other specified (including SALO) Qualified Code(s): E13.10 - Other specified diabetes mellitus with ketoacidosis without coma (2) Sepsis Sepsis acute organ dysfunction status: with acute organ dysfunction Sepsis type: sepsis due to unspecified organism Severe sepsis acute organ dysfunction type: encephalopathy Severe sepsis shock status: without septic shock Qualified Code(s): A41.9 - Sepsis, unspecified organism; R65.20 - Severe sepsis without septic shock; G93.40 - Encephalopathy, unspecified
--- NOTE | 2020-11-06 15:20 | Pharmacy Report ---
Pharmacy Glycemic Short Note 2 - Date of Service November 06, 2020 - Glycemic Short BSG Results (Last 24 hours): 11/05/20 11/05/20 11/06/20 16:42 20:28 07:24 Glucose 222 H POC Glucose 172 H 184 H 11/06/20 11/06/20 11/06/20 07:33 07:33 11:38 Glucose POC Glucose 239 H 239 H 211 H OUTPATIENT ANTIDIABETIC REGIMEN: * NovoLog 8 units with meals * Lantus 50 units HS (confirmed w/ patient's and updated med rec) * Metformin 500mg PO BID * A1c: 12.9% ASSESSMENT: 11/06/20: * Patient received 126 units of insulin yesterday (100 units of basal and 26 units of bolus) * BSGs tend to be highest in the am (fasting and lunch) despite multiple increases in basal and very aggressive carb coverage. Dinner and HS BSGs are well controlled. It is possible that Lantus is not lasting the full 24 hours in this patient. A trial of BID dosing may help improve control. 11/04/20 * Patient's BSGs yesterday were [phone]. Overnight BSGs were 123-110 * Patient's fasting BSG today was 160 mg/dL. * Patient received Lantus 80 units and 31 units of bolus insulin. * Patient's lunch BSG was 206 mg/dL. * Patient's BSG today was slightly higher than yesterday. Continue with scale. * Low BSG at dinnertime reflective of CF too aggressive. Loosen to 12. 11/03/20 * Patient's BSGs yesterday were [phone]. Overnight BSGs were 123-110 * Patient's fasting BSG today was 136 mg/dL. * Patient received Lantus 100 units and 59 units of bolus insulin. * Patient's lunch BSG was 192 mg/dL. * For Lantus, gave 20% reduction dose (80 units) since patient's fasting BSG decreased by 100 points. Scale for tomorrow based upon BSG. * Continue with slightly loosened CF but tight CR. 11/02/20 * Patient's BSGs yesterday were [phone]. * Patient's fasting BSG today was 215 mg/dL. * Patient received Lantus 100 units and 59 units of bolus insulin. * Patient's lunch BSG was 242 mg/dL. HOWEVER, this was only 1 hour after morning Novolog was given. Patient subsequently had hypoglycemic event due to overcorrection of lunch BSG. * Loosen Novolog slightly. PLAN FOR INPATIENT GLYCEMIC CONTROL: * Hold outpatient oral diabetes medications * Basal insulin * Lantus 100 units SQ qAM * Lantus 20 units SQ at dinner * 11/07: Switch to 60 units AM, 40 units PM * Bolus insulin * NovoLog ACHS * Goal range 110-140 mg/dL * Correction factor: 12 mg/dL/unit * Carb ratio: 2.5 g CHO/unit PLAN FOR DISCHARGE: * A1c of 12.9 % (10/19/20) is above goal * Insulin requirements are changing rapidly while hospitalized. Recommend awaiting stable dosing to make discharge recommendations.
[2020-11-06] MEDS ORDERED: INSULIN GLARGINE SOLOSTAR 100 UNITS/ML 3 ML PEN SC SCH ×2 (16:30→21:00)
--- NOTE | 2020-11-06 18:58 | Billing Data ---
Date of Service November 06, 2020 Coding Level of Care Code 61580 Subseq Hosp Care Lvl 2
--- NOTE | 2020-11-06 23:56 | Billing Data ---
Date of Service October 22, 2020 Coding Level of Care Code 65004 Subseq Hosp Care Lvl 2
[2020-11-07] MEDS: oxyCODONE HCL IR 5 MG TAB (IMMEDIATE RELEASE) PO PRN ×3 (00:58→22:16)
[2020-11-07] MEDS: ACETAMINOPHEN 500 MG TAB PO SCH ×3 (04:01→21:48)
--- NOTE | 2020-11-07 07:28 | Hospitalist Progress Note ---
Date of Service November 07, 2020 Assessment & Plan (1) Diabetic wet gangrene of the foot: Plan: Seema Ramos is a 50yo female with history of DM2, CVA, HTN, HLD who presented with a gangrenous diabetic left foot ulcer on 10/18 who then underwent LLE BKA on 10/25. Stable, currently pending placement. Sepsis secondary to diabetic gangrenous ulcer of L foot, resolved Worsening infection occurred in the setting of uncontrolled DM2, DKA (see below) . Ceftriaxone IV initiated on 10/18, LLE BKE performed by Ortho on 10/25, Daptomycin IV started on 10/25 and transitioned to Augmentin on 10/31. - Wound cultures obtained on day of BKA notable for E. faecalis and P. mirabilis; daptomycin IV initiated - Continue wound care, appreciate ongoing recommendations - Continue Augmentin 875/125mg PO BID for ~4-6 weeks, starting from 10/25 - Continue acetaminophen and oxycodone PRN pain - Trend daily CBC, BMP - Case management working on placement - Continue PT/OT Delirium, resolved Patient with acute-onset behavioral changes on 11/04 - A+Ox1-2 and intermittently confused; improving as of today. Etiology likely multifactorial: differential includes anxiety/depression/stress, infection, metabolic/electrolyte disturbances given recent poor PO intake, long-term hospitalization, low baseline functioning - Per , patient has chronic waxing and waning depressive symptoms and suicidal ideation - Psychiatry consulted - appreciate recs - continue to monitor T2DM - Patient noted to be in DKA on admission; DKA resolved on hospital day three - HbA1c 12.9% (10/19/20) - Patient's pre-hospitalization medication regimen adherence unclear; T2DM very poorly-controlled likely secondary to many factors including social stressors, caregiver education, other factors - SSI + Lantus while hospitalized - Glycemic consult - appreciate recs HTN/HLD - Continue home lisinopril, metoprolol, and statin History of CVA - Continue home statin, ASA, clopidogrel Normocytic Anemia Likely multifactorial: anemia of chronic disease (given above-mentioned problems) and iron-deficiency (given low iron and ferritin). - started ferrous gluconate 324mg PO QAM, continue after discharge - Trend daily CBC Thrombocytosis - Likely represents acute phase reactant s/p surgery - Trend daily CBC Varicella zoster, resolved - Patient with suspected VZV rash on admission, which resolved after a seven-day course of Valacyclovir Disposition Planning - Case management following, currently working on SNF or inpatient rehab placement - Inpatient rehab denied by insurance despite patient with new disabilities and challenging recovery in the setting of poor pre-hospitalization functioning with multiple uncontrolled comorbidities - CM- SNF placement FEN/GI: carb-consistent, minced and moist diet Code Status: DNR/DNI DVT PPX: Heparin 5000 units SQ Q12H, Clopidogrel Dispo: med/surg, CM assisting with SNF placement (2) Sepsis: (3) Decubitus ulcer of left heel: (4) DKA (diabetic ketoacidosis): (5) Cellulitis: (6) Acute metabolic encephalopathy: Admission and Anticipated Discharge Date Admission Date: October 18, 2020 Supervising Physician Co-Signing Physician Notes Resident Physician Supervision Note: I independently interviewed and examined the patient and verified the polanco history and physical, reviewed labs and image studies and agree with resident Dr. Bailey findings and care plan. Subjective No acute events overnight. Patient is minimally conversational and has slurred and minimally coherent speech when attempting to converse. Reports pain that is improved with PRN Oxycodone. Remainder of HPI and ROS limited by mental status and speech difficulty. Review of Systems Review of Systems: Unobtainable due to cognitive status Physical Exam Physical Exam: General: A&Ox3. NAD. Cooperative. HEENT: Atraumatic, normocephalic. Pulm: CTAB A&P. -wheezes, -rales, -rhonchi. Symmetrical chest rise. No increase work of breathing. No respiratory distress. Cardiac: RRR, -mrg. Radial pulses intact and symmetrical. Abdominal: soft, non-tender, non-distended, BS x 4 Skin: LLE with dressing c/d/i Results & Data Results & Data ([facility]) Vital Signs (Past 12 Hours) Vital Signs Temp Pulse Pulse Resp BP Pulse Ox 11/07/20 07:09 81 11/07/20 03:26 36.7 C 86 18 105/67 95 11/07/20 00:23 91 H 11/06/20 22:59 36.8 C 90 17 112/70 98 11/06/20 19:28 36.5 C 87 18 143/81 H 100 Resident Activity Tracking Resident Involvement: Resident Care Provided Care Provided: Adult Hospital Medicine (1) DKA (diabetic ketoacidosis) Diabetes mellitus complication detail: without coma Diabetes mellitus type: other specified (including SALO) Qualified Code(s): E13.10 - Other specified diabetes mellitus with ketoacidosis without coma (2) Sepsis Sepsis acute organ dysfunction status: with acute organ dysfunction Sepsis type: sepsis due to unspecified organism Severe sepsis acute organ dysfunction type: encephalopathy Severe sepsis shock status: without septic shock Qualified Code(s): A41.9 - Sepsis, unspecified organism; R65.20 - Severe sepsis without septic shock; G93.40 - Encephalopathy, unspecified
[2020-11-07 08:01] LABS: Basophils # (auto) 0.03 K/uL (0-0.2); Basophils % (auto) 0.2 %; Eosinophils # (auto) 0.59 K/uL (0-0.5); Eosinophils % (auto) 4.6 %; Hematocrit (blood only) 26.1 % (37-47); Hemoglobin 8.3 g/dL (12.0-16.0); Immature Granulocytes # (auto) 0.06 K/uL (0.00-0.02); Immature Granulocytes % (auto) 0.5 %; Lymphocytes % (auto) 32.9 %; Mean Corpuscular Hemoglobin 29.2 pg (25-34); Mean Corpuscular Hgb Conc 31.8 g/dL (32-36); Mean Corpuscular Volume 91.9 fL (80-100); Monocytes # (auto) 1.33 K/uL (0.11-0.59); Monocytes % (auto) 10.4 %; Neutrophils # (auto) 6.57 K/uL (1.4-6.5); Neutrophils % (auto) 51.4 %; Platelet Count 832 K/uL (130-400); RDW Coefficient of Variation 14.6 % (11.5-14.5); RDW Standard Deviation 47.8 fL (36.4-46.3); Red Blood Count 2.84 M/uL (4.2-5.4); White Blood Count 12.78 K/uL (4.8-10.8)
[2020-11-07 08:37] LABS: Calcium 10.8 mg/dl (8.5-10.1); Creatinine Clr Calc Pharmacy 131.2 ml/min; Est GFR (African American) 140.8 ml/min; Est GFR (Non-African American) 121.4 ml/min; Potassium 4.1 mmol/L (3.5-5.1)
[2020-11-07] MEDS: AMOXICILLIN/CLAVULANATE 875 MG TAB PO SCH ×2 (09:12→17:11)
[2020-11-07] MEDS: CEROVITE ADV FORMULA TAB PO SCH (09:12)
[2020-11-07] MEDS: ASCORBIC ACID 500 MG TAB PO SCH (09:13)
[2020-11-07] MEDS: FERROUS GLUCONATE 324 MG TAB PO SCH (09:13)
[2020-11-07] MEDS: ASPIRIN 81 MG ECTAB PO SCH (09:13)
[2020-11-07] MEDS: CLOPIDOGREL BISULFATE 75 MG TAB PO SCH (09:13)
[2020-11-07] MEDS: lisinopril 20 MG TAB PO SCH (09:13)
[2020-11-07] MEDS: THIAMINE HCL 100 MG TAB PO SCH (09:13)
[2020-11-07] MEDS: METOPROLOL SUCC 50MG EXT REL TAB PO SCH (09:16)
[2020-11-07] MEDS: HEPARIN SOD 5,000 UNIT/0.5 ML VIAL SQ SCH ×2 (09:16→21:48)
[2020-11-07] MEDS: POLYETHYLENE (MIRALAX) 17 GM PACK PO SCH (09:17)
[2020-11-07] MEDS: ATORVASTATIN 40 MG TAB PO SCH (09:17)
[2020-11-07] MEDS: INSULIN ASPART 100 UNITS/ML 3 ML PEN SC SCH ×4 (09:27→21:48)
[2020-11-07] MEDS: INSULIN GLARGINE SOLOSTAR 100 UNITS/ML 3 ML PEN SC SCH (09:34)
[2020-11-07] MEDS: oxyCODONE HCL 10 MG TABCR (OxyCONTIN) PO SCH ×3 (09:36→22:15)
--- NOTE | 2020-11-07 11:34 | Pharmacy Report ---
Pharmacy Glycemic Short Note 2 - Date of Service November 07, 2020 - Glycemic Short BSG Results (Last 24 hours): 11/06/20 11/06/20 11/06/20 11:38 16:12 16:13 Glucose POC Glucose 211 H 41 L* 37 L* 11/06/20 11/06/20 11/07/20 16:37 21:40 07:37 Glucose 115 H POC Glucose 231 H 70 11/07/20 07:57 Glucose POC Glucose 123 H OUTPATIENT ANTIDIABETIC REGIMEN: * NovoLog 8 units with meals * Lantus 50 units HS (confirmed w/ patient's and updated med rec) * Metformin 500mg PO BID * A1c: 12.9% ASSESSMENT: 11/07/20: * Patient received total of 193 units of insulin yesterday, of which 120 units were basal * Fasting BSG 123 mg/dL - much improved from day prior, will scale back and resume 100 units total of basal. Dosing split into BID dosing. Per previous notes, thinking that higher insulin doses were may not being absorbed or possibly once daily Lantus was not lasting full 24 hrs * BSG yesterday at dinner trending down 30-40s and treated per hypoglycemia protocol. Plan to loosen CF/CR at lunch time to hopefully avoid BSG dropping later in day. Comment also added to novolog order for max 20 units for SSI dosing 11/06/20: * Patient received 126 units of insulin yesterday (100 units of basal and 26 units of bolus) * BSGs tend to be highest in the am (fasting and lunch) despite multiple increases in basal and very aggressive carb coverage. Dinner and HS BSGs are well controlled. It is possible that Lantus is not lasting the full 24 hours in this patient. A trial of BID dosing may help improve control. 11/04/20 * Patient's BSGs yesterday were [phone]. Overnight BSGs were 123-110 * Patient's fasting BSG today was 160 mg/dL. * Patient received Lantus 80 units and 31 units of bolus insulin. * Patient's lunch BSG was 206 mg/dL. * Patient's BSG today was slightly higher than yesterday. Continue with scale. * Low BSG at dinnertime reflective of CF too aggressive. Loosen to 12. 11/03/20 * Patient's BSGs yesterday were [phone]. Overnight BSGs were 123-110 * Patient's fasting BSG today was 136 mg/dL. * Patient received Lantus 100 units and 59 units of bolus insulin. * Patient's lunch BSG was 192 mg/dL. * For Lantus, gave 20% reduction dose (80 units) since patient's fasting BSG decreased by 100 points. Scale for tomorrow based upon BSG. * Continue with slightly loosened CF but tight CR. 11/02/20 * Patient's BSGs yesterday were [phone]. * Patient's fasting BSG today was 215 mg/dL. * Patient received Lantus 100 units and 59 units of bolus insulin. * Patient's lunch BSG was 242 mg/dL. HOWEVER, this was only 1 hour after morning Novolog was given. Patient subsequently had hypoglycemic event due to overcorrection of lunch BSG. * Loosen Novolog slightly. PLAN FOR INPATIENT GLYCEMIC CONTROL: * Hold outpatient oral diabetes medications * Basal insulin * 11/07: Switch to 60 units AM, 40 units PM * Bolus insulin - changed at lunch time * NovoLog ACHS * Goal range 110-140 mg/dL * Correction factor: 15 mg/dL/unit * Carb ratio: 5 g CHO/unit PLAN FOR DISCHARGE: * A1c of 12.9 % (10/19/20) is above goal * Insulin requirements are changing rapidly while hospitalized. Recommend awaiting stable dosing to make discharge recommendations.
[2020-11-07] MEDS ORDERED: INSULIN GLARGINE SOLOSTAR 100 UNITS/ML 3 ML PEN SC SCH (21:00)
[2020-11-08] MEDS: ACETAMINOPHEN 500 MG TAB PO SCH ×4 (05:24→20:39)
[2020-11-08 07:19] LABS: Hematocrit (blood only) 25.2 % (37-47); Hemoglobin 7.9 g/dL (12.0-16.0); Mean Corpuscular Hemoglobin 28.9 pg (25-34); Mean Corpuscular Hgb Conc 31.3 g/dL (32-36); Mean Corpuscular Volume 92.3 fL (80-100); Mean Platelet Volume 7.9 fL (7.4-10.4); Platelet Count 877 K/uL (130-400); Red Blood Count 2.73 M/uL (4.2-5.4); White Blood Count 15.02 K/uL (4.8-10.8)
[2020-11-08 07:50] LABS: Calcium 10.6 mg/dl (8.5-10.1); Creatinine Clr Calc Pharmacy 118.9 ml/min; Est GFR (African American) 136.4 ml/min; Est GFR (Non-African American) 117.7 ml/min; Potassium 4.3 mmol/L (3.5-5.1)
[2020-11-08 07:58] LABS: Basophils # (auto) 0.02 K/uL (0-0.2); Basophils % (auto) 0.1 %; Eosinophils # (auto) 0.27 K/uL (0-0.5); Eosinophils % (auto) 1.8 %; Immature Granulocytes # (auto) 0.06 K/uL (0.00-0.02); Immature Granulocytes % (auto) 0.4 %; Lymphocytes # (auto) 5.04 K/uL (1.2-3.4); Lymphocytes % (auto) 33.6 %; Monocytes # (auto) 1.37 K/uL (0.11-0.59); Monocytes % (auto) 9.1 %; Neutrophils # (auto) 8.26 K/uL (1.4-6.5); RBC Morphology Unremarkable
--- NOTE | 2020-11-08 09:41 | Hospitalist Progress Note ---
Date of Service November 08, 2020 Assessment & Plan (1) Diabetic wet gangrene of the foot: Plan: Seema Ramos is a 50yo female with history of DM2, CVA, HTN, HLD who presented with a gangrenous diabetic left foot ulcer on 10/18 who then underwent LLE BKA on 10/25. Stable, currently pending placement. Sepsis secondary to diabetic gangrenous ulcer of L foot, resolved Worsening infection occurred in the setting of uncontrolled DM2, DKA (see below) . Ceftriaxone IV initiated on 10/18, LLE BKE performed by Ortho on 10/25, Daptomycin IV started on 10/25 and transitioned to Augmentin on 10/31. - Wound cultures obtained on day of BKA notable for E. faecalis and P. mirabilis - Continue wound care, appreciate ongoing recommendations - Continue Augmentin 875/125mg PO BID for ~4-6 weeks, starting from 10/25 - Continue acetaminophen and oxycodone PRN pain - Trend daily CBC, BMP - Case management working on placement - Continue PT/OT Delirium, resolved Patient with acute-onset behavioral changes on 11/04 - A+Ox1-2 and intermittently confused; improving as of today. Etiology likely multifactorial: differential includes anxiety/depression/stress, infection, metabolic/electrolyte disturbances given recent poor PO intake, long-term hospitalization, low baseline functioning - Per , patient has chronic waxing and waning depressive symptoms and suicidal ideation - Psychiatry consulted - appreciate recs - continue to monitor T2DM - Patient noted to be in DKA on admission; DKA resolved on hospital day three - HbA1c 12.9% (10/19/20) - Patient's pre-hospitalization medication regimen adherence unclear; T2DM very poorly-controlled likely secondary to many factors including social stressors, caregiver education, other factors - SSI + Lantus while hospitalized - Glycemic consult - appreciate recs HTN/HLD - Continue home lisinopril, metoprolol, and statin History of CVA - Continue home statin, ASA, clopidogrel Normocytic Anemia Likely multifactorial: anemia of chronic disease (given above-mentioned problems) and iron-deficiency (given low iron and ferritin). - started ferrous gluconate 324mg PO QAM, continue after discharge - Trend daily CBC Thrombocytosis - Likely represents acute phase reactant s/p surgery - Trend daily CBC Varicella zoster, resolved - Patient with suspected VZV rash on admission, which resolved after a seven-day course of Valacyclovir Disposition Planning - Case management following, currently working on SNF or inpatient rehab placement - Inpatient rehab denied by insurance despite patient with new disabilities and challenging recovery in the setting of poor pre-hospitalization functioning with multiple uncontrolled comorbidities - CM- SNF placement FEN/GI: carb-consistent, minced and moist diet Code Status: DNR/DNI DVT PPX: Heparin 5000 units SQ Q12H, Clopidogrel Dispo: med/surg, insurance rejected SNF - CM assisting with other options (2) Sepsis: (3) Decubitus ulcer of left heel: (4) DKA (diabetic ketoacidosis): (5) Cellulitis: (6) Acute metabolic encephalopathy: Admission and Anticipated Discharge Date Admission Date: October 18, 2020 Supervising Physician Co-Signing Physician Notes Resident Physician Supervision Note: I independently interviewed and examined the patient and verified the polanco history and physical, reviewed labs and image studies and agree with resident Dr. Bailey findings and care plan. Subjective No acute events overnight. Patient is more awake/alert today and is able to speak in a full sentence - she was tearful and was repeatedly saying "please help me get out of here". Reports pain that is improved with PRN Oxycodone. Remainder of HPI and ROS limited by mental status and speech difficulty. Review of Systems Review of Systems: Unobtainable due to cognitive status Physical Exam Physical Exam: General: A&O to self only but speech is limited. Tearful. NAD. Cooperative. HEENT: Atraumatic, normocephalic. Pulm: CTAB A&P. -wheezes, -rales, -rhonchi. Symmetrical chest rise. No increase work of breathing. No respiratory distress. Cardiac: RRR, -mrg. Radial pulses intact and symmetrical. Abdominal: soft, non-tender, non-distended, BS x 4 Skin: LLE, s/p BKA, with dressing c/d/i Results & Data Results & Data ([facility]) Vital Signs (Past 12 Hours) Vital Signs Temp Pulse Pulse Resp BP Pulse Ox 11/08/20 08:27 37.0 C 82 16 117/76 98 11/08/20 02:56 37.1 C 98 H 18 104/65 96 11/07/20 23:35 100 H 11/07/20 22:53 36.6 C 101 H 18 104/64 97 (1) DKA (diabetic ketoacidosis) Diabetes mellitus complication detail: without coma Diabetes mellitus type: other specified (including SALO) Qualified Code(s): E13.10 - Other specified diabetes mellitus with ketoacidosis without coma (2) Sepsis Sepsis acute organ dysfunction status: with acute organ dysfunction Sepsis type: sepsis due to unspecified organism Severe sepsis acute organ dysfunction type: encephalopathy Severe sepsis shock status: without septic shock Qualified Code(s): A41.9 - Sepsis, unspecified organism; R65.20 - Severe sepsis without septic shock; G93.40 - Encephalopathy, unspecified
[2020-11-08] MEDS: AMOXICILLIN/CLAVULANATE 875 MG TAB PO SCH ×2 (09:53→17:46)
[2020-11-08] MEDS: oxyCODONE HCL 10 MG TABCR (OxyCONTIN) PO SCH ×3 (09:54→20:38)
[2020-11-08] MEDS: INSULIN ASPART 100 UNITS/ML 3 ML PEN SC SCH ×4 (09:55→20:25)
[2020-11-08] MEDS: POLYETHYLENE (MIRALAX) 17 GM PACK PO SCH (09:57)
[2020-11-08] MEDS: INSULIN GLARGINE SOLOSTAR 100 UNITS/ML 3 ML PEN SC SCH ×2 (09:57→20:24)
[2020-11-08] MEDS: HEPARIN SOD 5,000 UNIT/0.5 ML VIAL SQ SCH ×2 (12:44→20:25)
--- NOTE | 2020-11-08 13:59 | Billing Data ---
Date of Service October 23, 2020 Coding Level of Care Code 85733 Subseq Hosp Care Lvl 1
[2020-11-08] MEDS: CLOPIDOGREL BISULFATE 75 MG TAB PO SCH (14:20)
[2020-11-08] MEDS: lisinopril 20 MG TAB PO SCH (14:20)
[2020-11-08] MEDS: FERROUS GLUCONATE 324 MG TAB PO SCH (14:20)
[2020-11-08] MEDS: CEROVITE ADV FORMULA TAB PO SCH (14:20)
[2020-11-08] MEDS: ATORVASTATIN 40 MG TAB PO SCH (14:20)
[2020-11-08] MEDS: ASCORBIC ACID 500 MG TAB PO SCH (14:20)
[2020-11-08] MEDS: ASPIRIN 81 MG ECTAB PO SCH (14:20)
[2020-11-08] MEDS: METOPROLOL SUCC 50MG EXT REL TAB PO SCH (14:20)
[2020-11-08] MEDS: THIAMINE HCL 100 MG TAB PO SCH (14:21)
--- NOTE | 2020-11-08 17:54 | Orthopedic Progress Note ---
Date of Service November 08, 2020 Assessment & Plan (1) Cellulitis: (2) Status post amputation of leg: -Central and lateral portions of incision concerning for cellulitis. Continue antibiotics. Sutures not ready to be removed yet. -Clinically is stable, no recent fevers. WBC still remains elevated. May need washout if she becomes septic again. -Will follow. Subjective . Clinically stable. Awaiting placement. Review of Systems All systems reviewed & are unremarkable except as noted in HPI & below. Physical Exam LLE: The incision site looks to be healing well medially. The central and lateral portions of the incision have some areas of dehiscence with some sanguinous drainage coming from the central portion of the incision. The central and lateral portions of the incision also have surrounding erythema. Incision site is non-tender to palpation. Results & Data Results & Data Laboratory Results Reviewed Diagnostic Findings Reviewed PG Care Time/CCT Total # of Minutes Spent Total Time Spent with Patient: Total time spent is greater than 50% in coordination of care (as documented) at patient's floor/unit and/or counseling patient: Supervising Physician Co-Signing Physician Notes Patient seen and evaluated and I agree with note. Her distal stump now has some concern for viability. She has mild tenderness. Edema has resolved, but some ulceration distal and lateral. Leukocytosis once again. I changed her dressing to silicone foam for absorbancy. Will follow. If no improvement in 24-48 hrs, may need I&D amputation revision. Coding Level of Care Code 82793 Subseq Hosp Care Lvl 3 Diagnoses Cellulitis L03.90 Status post amputation of leg Z89.619
[2020-11-09] MEDS: ACETAMINOPHEN 500 MG TAB PO SCH ×3 (04:39→22:02)
--- NOTE | 2020-11-09 06:40 | Hospitalist Progress Note ---
Date of Service November 09, 2020 Assessment & Plan (1) Diabetic wet gangrene of the foot: Plan: Seema Ramos is a 50yo female with history of DM2, CVA, HTN, HLD who presented with a gangrenous diabetic left foot ulcer on 10/18 who then underwent LLE BKA on 10/25. Stable, currently pending placement. Sepsis secondary to diabetic gangrenous ulcer of L foot, s/p BKA Worsening infection occurred in the setting of uncontrolled DM2, DKA (see below) . Ceftriaxone IV initiated on 10/18, LLE BKE performed by Ortho on 10/25, Daptomycin IV started on 10/25 and transitioned to Augmentin on 10/31. - Ortho on board - appreciate recs - Concern for cellulitis near incision - continue PO abx and consider surgical wash-out if becomes septic - Continue wound care - Continue Augmentin 875/125mg PO BID for ~4-6 weeks, starting from 10/25 - Continue acetaminophen and oxycodone PRN pain - Trend daily CBC, BMP - Continue PT/OT Thrombocytosis Platelets slowly increased from 700s to ~1000 over the course of 10 days. Suspect 2/2 post-surgical inflammation in addition to cellulitis (see above). - cellulitis treatment plan as stated above - trend daily CBC Delirium, resolving Patient with acute-onset behavioral changes on 11/04 - A+Ox1-2 and intermittently confused; improving as of today. Etiology likely multifactorial: differential includes anxiety/depression/stress, infection, metabolic/electrolyte dist urbances given recent poor PO intake, long-term hospitalization, low baseline functioning. - Per , patient has chronic waxing and waning depressive symptoms and suicidal ideation - Psychiatry consulted - appreciate recs - continue to monitor T2DM - Patient noted to be in DKA on admission; DKA resolved on hospital day three - HbA1c 12.9% (10/19/20) - Patient's pre-hospitalization medication regimen adherence unclear; T2DM very poorly-controlled likely secondary to many factors including social stressors, caregiver education, other factors - SSI + Lantus while hospitalized - Glycemic consult - appreciate recs HTN/HLD - Continue home lisinopril, metoprolol, and statin History of CVA - Continue home statin, ASA, clopidogrel Normocytic Anemia Likely multifactorial: anemia of chronic disease (given above-mentioned problems) and iron-deficiency (given low iron and ferritin). - continue ferrous gluconate 324mg PO QAM, continue after discharge - Trend daily CBC Varicella zoster, resolved - Patient with suspected VZV rash on admission, which resolved after a seven-day course of Valacyclovir Disposition Planning - Insurance has rejected acute rehab and SNF on several occasions this admission - Once medically cleared - home with home health services (she will have / care from son/), FEN/GI: carb-consistent, minced and moist diet Code Status: DNR/DNI DVT PPX: Heparin 5000 units SQ Q12H, Clopidogrel Dispo: med/surg, tentative d/c plan to home on 11/11 vs 11/12 (2) Sepsis: (3) Decubitus ulcer of left heel: (4) DKA (diabetic ketoacidosis): (5) Cellulitis: (6) Acute metabolic encephalopathy: Admission and Anticipated Discharge Date Admission Date: October 18, 2020 Supervising Physician Co-Signing Physician Notes Resident Physician Supervision Note: I independently interviewed and examined the patient and verified the polanco history and physical, reviewed labs and image studies and agree with resident Dr. Bailey findings and care plan. Subjective No acute events overnight. Patient slept well. Still appears sad this morning and is anxious to be discharged. Denies pain. Remainder of HPI/ROS limited by speech difficulties. Review of Systems Review of Systems: All systems reviewed & are unremarkable except as noted in Subjective Physical Exam Physical Exam: General: A&O to self only but speech is limited. Dysphoric affect. NAD. Cooperative. HEENT: Atraumatic, normocephalic. Pulm: CTAB A&P. -wheezes, -rales, -rhonchi. Symmetrical chest rise. No increase work of breathing. No respiratory distress. Cardiac: RRR, -mrg. Radial pulses intact and symmetrical. Abdominal: soft, non-tender, non-distended, BS x 4 Skin: LLE, s/p BKA, with dressing c/d/i Results & Data Results & Data ([facility]) Vital Signs (Past 12 Hours) Vital Signs Temp Pulse Pulse Resp BP Pulse Ox 11/09/20 02:58 36.8 C 95 H 18 125/77 98 11/08/20 23:01 91 H 11/08/20 22:54 36.5 C 91 H 18 140/84 98 11/08/20 19:22 36.6 C 98 H 18 106/69 97 Resident Activity Tracking Resident Involvement: Resident Care Provided Care Provided: Adult Hospital Medicine (1) DKA (diabetic ketoacidosis) Diabetes mellitus complication detail: without coma Diabetes mellitus type: other specified (including SALO) Qualified Code(s): E13.10 - Other specified diabetes mellitus with ketoacidosis without coma (2) Sepsis Sepsis acute organ dysfunction status: with acute organ dysfunction Sepsis type: sepsis due to unspecified organism Severe sepsis acute organ dysfunction type: encephalopathy Severe sepsis shock status: without septic shock Q ualified Code(s): A41.9 - Sepsis, unspecified organism; R65.20 - Severe sepsis without septic shock; G93.40 - Encephalopathy, unspecified
[2020-11-09] MEDS: INSULIN ASPART 100 UNITS/ML 3 ML PEN SC SCH ×4 (08:49→20:49)
[2020-11-09] MEDS: HEPARIN SOD 5,000 UNIT/0.5 ML VIAL SQ SCH ×2 (08:51→22:01)
[2020-11-09] MEDS: oxyCODONE HCL 10 MG TABCR (OxyCONTIN) PO SCH ×2 (08:52→22:08)
[2020-11-09] MEDS: AMOXICILLIN/CLAVULANATE 875 MG TAB PO SCH ×2 (08:53→17:29)
[2020-11-09] MEDS: ASPIRIN 81 MG ECTAB PO SCH (08:56)
[2020-11-09] MEDS ORDERED: INSULIN GLARGINE SOLOSTAR 100 UNITS/ML 3 ML PEN SC SCH (09:00)
[2020-11-09] MEDS: METOPROLOL SUCC 50MG EXT REL TAB PO SCH (09:02)
[2020-11-09] MEDS: CLOPIDOGREL BISULFATE 75 MG TAB PO SCH (09:02)
[2020-11-09] MEDS: THIAMINE HCL 100 MG TAB PO SCH (12:17)
[2020-11-09] MEDS: ATORVASTATIN 40 MG TAB PO SCH (12:17)
[2020-11-09] MEDS: CEROVITE ADV FORMULA TAB PO SCH (12:17)
[2020-11-09] MEDS: lisinopril 20 MG TAB PO SCH (12:17)
[2020-11-09] MEDS: POLYETHYLENE (MIRALAX) 17 GM PACK PO SCH (12:19)
[2020-11-09] MEDS: FERROUS GLUCONATE 324 MG TAB PO SCH (12:21)
[2020-11-09] MEDS: ASCORBIC ACID 500 MG TAB PO SCH (12:21)
[2020-11-09 13:12] LABS: Hematocrit (blood only) 26.5 % (37-47); Hemoglobin 8.3 g/dL (12.0-16.0); Mean Corpuscular Hemoglobin 28.8 pg (25-34); Mean Corpuscular Hgb Conc 31.3 g/dL (32-36); Mean Platelet Volume 7.8 fL (7.4-10.4); Platelet Count 1009 K/uL (130-400); Red Blood Count 2.88 M/uL (4.2-5.4); White Blood Count 14.36 K/uL (4.8-10.8)
[2020-11-09 13:46] LABS: BUN Creatinine Ratio 46.1 (10-20); Calcium 10.8 mg/dl (8.5-10.1); Creatinine Clr Calc Pharmacy 128.1 ml/min; Est GFR (African American) 138.5 ml/min; Est GFR (Non-African American) 119.5 ml/min; Potassium 4.3 mmol/L (3.5-5.1)
[2020-11-09 13:49] LABS: Basophils # (auto) 0.04 K/uL (0-0.2); Basophils % (auto) 0.3 %; Eosinophils % (auto) 4.9 %; Immature Granulocytes # (auto) 0.07 K/uL (0.00-0.02); Immature Granulocytes % (auto) 0.5 %; Lymphocytes # (auto) 4.73 K/uL (1.2-3.4); Lymphocytes % (auto) 32.9 %; Monocytes % (auto) 9.7 %; Neutrophils # (auto) 7.42 K/uL (1.4-6.5); Neutrophils % (auto) 51.7 %
--- NOTE | 2020-11-09 14:17 | Pharmacy Report ---
Pharmacy Glycemic Short Note 2 - Date of Service November 09, 2020 - Glycemic Short BSG Results (Last 24 hours): 11/08/20 11/08/20 11/09/20 17:06 19:56 07:47 Glucose POC Glucose 127 H 104 H 90 11/09/20 11/09/20 11:39 12:55 Glucose 133 H POC Glucose 143 H OUTPATIENT ANTIDIABETIC REGIMEN: * NovoLog 8 units with meals * Lantus 50 units HS (confirmed w/ patient's and updated med rec) * Metformin 500mg PO BID * A1c: 12.9% ASSESSMENT: 11/09/20: * Patient received total of 86 units of insulin yesterday, of which 80 units were basal insulin * Fasting BSG 90 mg/dL - patients PO intake poor currently, did not eat 11/08 * Scaled back on AM Lantus this AM to 40 units * Still with no PO intake for breakfast or lunch, will scale back further on total daily basal 11/07/20: * Patient received total of 193 units of insulin yesterday, of which 120 units were basal * Fasting BSG 123 mg/dL - much improved from day prior, will scale back and resume 100 units total of basal. Dosing split into BID dosing. Per previous notes, thinking that higher insulin doses were may not being absorbed or possibly once daily Lantus was not lasting full 24 hrs * BSG yesterday at dinner trending down 30-40s and treated per hypoglycemia protocol. Plan to loosen CF/CR at lunch time to hopefully avoid BSG dropping later in day. Comment also added to novolog order for max 20 units for SSI dosing 11/06/20: * Patient received 126 units of insulin yesterday (100 units of basal and 26 units of bolus) * BSGs tend to be highest in the am (fasting and lunch) despite multiple increases in basal and very aggressive carb coverage. Dinner and HS BSGs are well controlled. It is possible that Lantus is not lasting the full 24 hours in this patient. A trial of BID dosing may help improve control. 11/04/20 * Patient's BSGs yesterday were [phone]. Overnight BSGs were 123-110 * Patient's fasting BSG today was 160 mg/dL. * Patient received Lantus 80 units and 31 units of bolus insulin. * Patient's lunch BSG was 206 mg/dL. * Patient's BSG today was slightly higher than yesterday. Continue with scale. * Low BSG at dinnertime reflective of CF too aggressive. Loosen to 12. 11/03/20 * Patient's BSGs yesterday were [phone]. Overnight BSGs were 123-110 * Patient's fasting BSG today was 136 mg/dL. * Patient received Lantus 100 units and 59 units of bolus insulin. * Patient's lunch BSG was 192 mg/dL. * For Lantus, gave 20% reduction dose (80 units) since patient's fasting BSG decreased by 100 points. Scale for tomorrow based upon BSG. * Continue with slightly loosened CF but tight CR. 11/02/20 * Patient's BSGs yesterday were [phone]. * Patient's fasting BSG today was 215 mg/dL. * Patient received Lantus 100 units and 59 units of bolus insulin. * Patient's lunch BSG was 242 mg/dL. HOWEVER, this was only 1 hour after morning Novolog was given. Patient subsequently had hypoglycemic event due to overcorrection of lunch BSG. * Loosen Novolog slightly. PLAN FOR INPATIENT GLYCEMIC CONTROL: * Hold outpatient oral diabetes medications * Basal insulin - decrease * Lantus 40 units Qam * Lantus 10-20 units Qpm * Bolus insulin * NovoLog ACHS * Goal range 110-140 mg/dL * Correction factor: 15 mg/dL/unit * Carb ratio: 6 g CHO/unit PLAN FOR DISCHARGE: * A1c of 12.9 % (10/19/20) is above goal * Insulin requirements are changing rapidly while hospitalized. Recommend awaiting stable dosing to make discharge recommendations.
--- NOTE | 2020-11-09 17:24 | Orthopedic Progress Note ---
Date of Service November 09, 2020 Assessment & Plan (1) Cellulitis: (2) Status post amputation of leg: New and progressive wound drainage 2.5 weeks postop from thru knee amputation for infection. New leukocytosis is persistent for past 3 days. PLTs elevating. Concern for recurrent infection. I discussed her clinical situation with the primary care team as well as her , Andrew, by phone. I recommend surgery for Incision and Debridement, with revision of amputation to treat persistent/recurrent infection. Will likely need amputation shortened to healthier tissue. Discussed that alternative is prolonged IV antibiotics, but surgery will be more effective and reliable. The wound dehiscence could worsen, and I am concerned about her healing potential in current condition. Risks include need for further surgery, blood loss, pain syndromes, blood clots, and complications related to anesthesia. (POA) was agreeable to rescind DNI in order to treat lingering signs of infection. Informed consent obtained over the phone today. Plan for NPO tonight for surgery tomorrow morning. Will obtain new tissue cultures. ASA and Plavix can continue as there is no benefit to hold at this point. Expect drain for 24-48hrs and retun Subjective Reports that her leg has been painful when touched. Otherwise, she does not offer much more. Review of Systems All systems reviewed & are unremarkable except as noted in HPI & below. Physical Exam LLE: Fresh dressings removed. Active drainage that is seropurulent. No significant improvement. The central and lateral portions of the incision have some areas of dehiscence with some sanguinous drainage coming from the central portion of the incision. The central and lateral portions of the incision also have surrounding erythema. Incision site is tender to palpation. Distal skin has sluggish cap refill consistent with congestion Results & Data Results & Data Laboratory Results . H & H 10/18/20 10/19/20 10/20/20 Range/Units 14:25 05:43 04:44 Hgb 13.5 11.2 L 10.8 L (12.0-16.0) g/dL Hct 39.3 32.7 L 30.7 L (37-47) % 10/21/20 10/22/20 10/23/20 Range/Units 04:13 08:00 07:30 Hgb 10.0 L 9.9 L 9.9 L (12.0-16.0) g/dL Hct 28.8 L 29.5 L 29.7 L (37-47) % 10/24/20 10/25/20 10/26/20 Range/Units 06:52 07:03 06:59 Hgb 9.8 L 9.9 L 9.6 L (12.0-16.0) g/dL Hct 29.8 L 29.6 L 29.7 L (37-47) % 10/27/20 10/28/20 10/29/20 Range/Units 08:14 07:11 16:49 Hgb 8.8 L 7.9 L 8.4 L (12.0-16.0) g/dL Hct 27.0 L 24.8 L 25.9 L (37-47) % 10/31/20 11/01/20 11/03/20 Range/Units 07:32 07:14 06:53 Hgb 8.2 L 8.2 L 7.8 L (12.0-16.0) g/dL Hct 25.5 L 24.7 L 24.9 L (37-47) % 11/04/20 11/04/20 11/05/20 Range/Units 11:26 12:27 10:48 Hgb Cancelled 7.8 L 8.2 L (12.0-16.0) g/dL Hct Cancelled 24.5 L 25.7 L (37-47) % 11/06/20 11/07/20 11/08/20 Range/Units 07:24 07:37 06:50 Hgb 7.8 L 8.3 L 7.9 L (12.0-16.0) g/dL Hct 24.7 L 26.1 L 25.2 L (37-47) % 11/09/20 Range/Units 12:55 Hgb 8.3 L (12.0-16.0) g/dL Hct 26.5 L (37-47) % Coagulation 10/18/20 Range/Units 14:25 INR 1.1 (0.9-1.1) WBC continues to be elevated after normalization on 11/05 PLT is elevated +1000 Diagnostic Findings . PG Care Time/CCT Total # of Minutes Spent Total Time Spent with Patient: Total time spent is greater than 50% in coor dination of care (as documented) at patient's floor/unit and/or counseling patient: Coding Level of Care Code 90700 Subseq Hosp Care Lvl 3 Diagnoses Cellulitis L03.90 Status post amputation of leg Z89.619
[2020-11-09] MEDS: oxyCODONE HCL IR 5 MG TAB (IMMEDIATE RELEASE) PO PRN ×2 (17:29→22:07)
[2020-11-09] MEDS: INSULIN GLARGINE SOLOSTAR 100 UNITS/ML 3 ML PEN SC SCH (22:03)
[2020-11-10] MEDS: ACETAMINOPHEN 500 MG TAB PO SCH ×3 (04:25→21:55)
[2020-11-10] MEDS: AMOXICILLIN/CLAVULANATE 875 MG TAB PO SCH (08:00)
--- NOTE | 2020-11-10 08:33 | Pharmacy Report ---
Pharmacy Glycemic Short Note 2 - Date of Service November 10, 2020 - Glycemic Short BSG Results (Last 24 hours): 11/09/20 11/09/20 11/09/20 11:39 12:55 16:22 Glucose 133 H POC Glucose 143 H 114 H 11/09/20 11/10/20 20:45 07:56 Glucose POC Glucose 91 137 H OUTPATIENT ANTIDIABETIC REGIMEN: * NovoLog 8 units with meals * Lantus 50 units HS (confirmed w/ patient's and updated med rec) * Metformin 500mg PO BID * A1c: 12.9% (10/19/20) ASSESSMENT: 11/10/20: * Patient is scheduled for LLE I&D w/ revision of amputation today (currently NPO) * BSGs well-controlled yesterday, 90, 143, 114, and 91 mg/dL * Have been decreasing basal insulin over past couple of days (insulin yesterday was 100% basal) * Given NPO status, will give half of yesterday's AM basal dose this morning and reassess this evening * Did not go according to plan, Lantus not given prior to patient going to OR * Postop BSG unsurprisingly elevated at 271 mg/dL - will give one-time Lantus 50 units dose postop 11/09/20: * Patient received total of 86 units of insulin yesterday, of which 80 units were basal insulin * Fasting BSG 90 mg/dL - patients PO intake poor currently, did not eat 11/08 * Scaled back on AM Lantus this AM to 40 units * Still with no PO intake for breakfast or lunch, will scale back further on total daily basal 11/07/20: * Patient received total of 193 units of insulin yesterday, of which 120 units were basal * Fasting BSG 123 mg/dL - much improved from day prior, will scale back and resume 100 units total of basal. Dosing split into BID dosing. Per previous notes, thinking that higher insulin doses were may not being absorbed or possibly once daily Lantus was not lasting full 24 hrs * BSG yesterday at dinner trending down 30-40s and treated per hypoglycemia protocol. Plan to loosen CF/CR at lunch time to hopefully avoid BSG dropping later in day. Comment also added to novolog order for max 20 units for SSI dosing 11/06/20: * Patient received 126 units of insulin yesterday (100 units of basal and 26 units of bolus) * BSGs tend to be highest in the am (fasting and lunch) despite multiple increases in basal and very aggressive carb coverage. Dinner and HS BSGs are well controlled. It is possible that Lantus is not lasting the full 24 hours in this patient. A trial of BID dosing may help improve control. PLAN FOR INPATIENT GLYCEMIC CONTROL: * Hold outpatient oral diabetes medications * Basal insulin - * Lantus 50 units SC x 1 postop * Bolus insulin * NovoLog ACHS * Goal range 110-140 mg/dL * Correction factor: 15 mg/dL/unit * Carb ratio: 6 g CHO/unit * ,04 checks with same parameters PLAN FOR DISCHARGE: * A1c of 12.9 % (10/19/20) is above goal * Insulin requirements are changing rapidly while hospitalized. Recommend awaiting stable dosing to make discharge recommendations.
[2020-11-10 08:59] LABS: Basophils # (auto) 0.06 K/uL (0-0.2); Basophils % (auto) 0.5 %; Eosinophils # (auto) 0.66 K/uL (0-0.5); Eosinophils % (auto) 5.1 %; Hematocrit (blood only) 26.1 % (37-47); Hemoglobin 8.1 g/dL (12.0-16.0); Immature Granulocytes # (auto) 0.08 K/uL (0.00-0.02); Immature Granulocytes % (auto) 0.6 %; Lymphocytes # (auto) 3.67 K/uL (1.2-3.4); Lymphocytes % (auto) 28.2 %; Mean Corpuscular Hemoglobin 29.2 pg (25-34); Mean Corpuscular Volume 94.2 fL (80-100); Mean Platelet Volume 7.8 fL (7.4-10.4); Monocytes # (auto) 1.24 K/uL (0.11-0.59); Monocytes % (auto) 9.5 %; Neutrophils # (auto) 7.32 K/uL (1.4-6.5); Neutrophils % (auto) 56.1 %; Platelet Count 899 K/uL (130-400); RDW Coefficient of Variation 15.1 % (11.5-14.5); Red Blood Count 2.77 M/uL (4.2-5.4); White Blood Count 13.03 K/uL (4.8-10.8)
[2020-11-10] MEDS: METOPROLOL SUCC 50MG EXT REL TAB PO SCH (09:00)
[2020-11-10] MEDS: lisinopril 20 MG TAB PO SCH (09:00)
[2020-11-10] MEDS ORDERED: INSULIN GLARGINE SOLOSTAR 100 UNITS/ML 3 ML PEN SC SCH (09:00)
[2020-11-10] MEDS: oxyCODONE HCL 10 MG TABCR (OxyCONTIN) PO SCH ×2 (09:00→21:55)
[2020-11-10] MEDS ORDERED: ATROPINE SULFATE 0.1 MG/ML 10ML SYR IV PRN (09:01)
[2020-11-10] MEDS ORDERED: ONDANSETRON INJ 2 MG/ML 2 ML VIAL IV PRN (09:01)
[2020-11-10] MEDS ORDERED: ePHEDrine sulfate 50 MG/ML AMP IV PRN (09:01)
[2020-11-10] MEDS ORDERED: LABETALOL HCL IV 5 MG/ML 20ML IV PRN (09:01)
[2020-11-10] MEDS ORDERED: fentaNYL citrate 100 MCG/2 ML VIAL IV PRN (09:01)
[2020-11-10] MEDS ORDERED: fentaNYL citrate 100 MCG/2 ML VIAL ONE ×3 (09:19→11:23)
--- NOTE | 2020-11-10 09:19 | Anesthesiology Consultation ---
Date of Service November 10, 2020 The patient is alerted to self but not to time or place. She is able to follow commands such as open her mouth. Consent was obtained from her . Assessment & Plan Chart Review Chart Review: Acceptable Risk for Surgery (necessary surgery) and Patient NOT seen in Pre Admission Testing Consults Requested none History Surgery Operation Date: 10/25/20 07:00 Proposed Procedures p Left Below Knee Amputation - Luis A Vieira MD Operation Date: 11/10/20 09:00 Proposed Procedures p Left Lower Extremity Incision and Drainage with Amputation Revision - Luis A Vieira MD Height/Weight Height: 5 ft Weight: 59.3 kg Allergies Allergy/AdvReac Type Severity Reaction Status Date / Time No Known Allergies Allergy Verified 10/18/20 18:10 Medications Home Medications Medication Instructions Recorded Confirmed Last Taken aspirin 81 mg tablet,delayed 81 mg PO DAILY 08/28/19 10/18/20 Unknown release atorvastatin 40 mg tablet 40 mg PO DAILY 08/28/19 10/18/20 Unknown clopidogrel 75 mg tablet (Plavix) 75 mg PO DAILY 08/28/19 10/18/20 Unknown fesoterodine 8 mg tablet,extended 8 mg PO DAILY 08/28/19 10/18/20 Unknown release 24 hr (Toviaz) insulin aspart U-100 100 unit/mL 0 unit SUBCUT ACHS 08/28/19 10/18/20 Unknown (3 mL) subcutaneous pen (Novolog Flexpen U-100 Insulin aspart) lisinopril 20 mg tablet 20 mg PO DAILY 08/28/19 10/18/20 Unknown metformin 500 mg tablet 500 mg PO BID 08/28/19 10/18/20 Unknown metoprolol succinate 50 mg 50 mg PO DAILY 08/28/19 10/18/20 Unknown tablet,extended release 24 hr pediatric multivitamin 2 tab PO DAILY 08/28/19 10/18/20 Unknown insulin glargine 100 unit/mL (3 50 unit SUBCUT HS 10/28/20 10/28/20 Unknown mL) subcutaneous pen (Lantus Solostar U-100 Insulin) Active Medications Generic Name Dose Route Start Last Admin Trade Name Freq PRN Reason Stop Dose Admin Acetaminophen 1,000 mg 10/22/20 21:00 11/10/20 04:25 Acetaminophen 500 Mg Tab PO 11/21/20 20:59 Not Given Q8H MART Amoxicillin/Clavulanate Potassium 1 tab 10/31/20 17:00 11/09/20 17:29 Amoxicillin/Clavulanate 875 Mg Tab PO 12/12/20 16:59 1 tab BIDM MART Administration Ascorbic Acid 1,000 mg 11/05/20 09:00 11/09/20 12:21 Ascorbic Acid 500 Mg Tab PO 12/05/20 08:59 1,000 mg QAM MART Administration Aspirin 81 mg 10/19/20 09:00 11/09/20 08:56 Aspirin 81 Mg Ectab PO 11/18/20 08:59 81 mg DAILY MART Administration Atorvastatin Calcium 40 mg 10/19/20 09:00 11/09/20 12:17 Atorvastatin 40 Mg Tab PO 11/18/20 08:59 40 mg DAILY MART Administration Clopidogrel Bisulfate 75 mg 10/19/20 09:00 11/09/20 09:02 Clopidogrel Bisulfate 75 Mg Tab PO 11/18/20 08:59 75 mg DAILY MART Administration Dextrose 25 - 50 ml 10/18/20 23:15 11/06/20 16:20 Dextrose 50% 50 Ml Syringe IV 11/17/20 23:14 50 ml UD PRN Administration Hypoglycemia Protocol Protocol Ferrous Gluconate 324 mg 11/06/20 09:45 11/09/20 12:21 Ferrous Gluconate 324 Mg Tab PO 12/06/20 09:44 324 mg QAM MART Administration Glucose 4 - 8 tabs 10/18/20 23:15 11/02/20 16:38 Glucose 10 Tabs/Tube PO 11/17/20 23:14 4 tabs UD PRN Administration Hypoglycemia Protocol Protocol Heparin Sodium (Porcine) 5,000 units 10/19/20 21:00 11/09/20 22:01 Heparin Sod 5,000 Unit/0.5 Ml Vial SQ 11/18/20 20:59 5,000 units Q12 MART Administration Insulin Aspart 0 units 10/23/20 16:30 11/09/20 20:49 Insulin Aspart 100 Units/Ml 3 Ml Pen SC 11/22/20 16:29 Not Given ACHS MART Protocol Insulin Glargine 0 units 11/08/20 21:00 11/09/20 22:03 Insulin Glargine Solostar 100 Units/Ml 3 Ml Pen SC 12/08/20 20:59 10 units QPM MART Administration Protocol Lisinopril 20 mg 10/19/20 09:00 11/09/20 12:17 Lisinopril 20 Mg Tab PO 11/18/20 08:59 20 mg DAILY MART Administration Metoprolol Succinate 50 mg 10/19/20 09:00 11/09/20 09:02 Metoprolol Succ 50mg Ext Rel Tab PO 11/18/20 08:59 50 mg DAILY MART Administration Metoprolol Tartrate 2.5 mg 10/19/20 09:56 10/29/20 21:22 Metoprolol Tartrate 1 Mg/Ml Vial IV 11/18/20 11:59 2.5 mg Q6 PRN Administration SBP > 160 Miscellaneous 15 - 30 gm 10/18/20 23:15 11/03/20 17:02 Carbohydrates For Hypoglycemia PO 11/17/20 23:14 15 gm PRN PRN Administration Hypoglycemia Treatment Multivitamins/Minerals 1 tab 11/05/20 09:00 11/09/20 12:17 Cerovite Adv Formula Tab PO 12/05/20 08:59 1 tab QAM MART Administration Oxycodone HCl 10 mg 11/05/20 16:30 11/09/20 22:08 Oxycodone Hcl 10 Mg Tabcr (Oxycontin) PO 11/19/20 16:29 Not Given BID MART Oxycodone HCl 5 mg 11/09/20 17:04 11/09/20 22:07 Oxycodone Hcl Ir 5 Mg Tab (Immediate Release) PO 11/23/20 17:03 5 mg Q4H PRN Administration Pain Polyethylene Glycol 17 gm 10/29/20 11:30 11/09/20 12:19 Polyethylene (Miralax) 17 Gm Pack PO 11/28/20 11:29 Not Given DAILY MART Simethicone 40 mg 10/29/20 14:54 10/31/20 11:24 Simethicone 40 Mg/0.6 Ml 30ml PO 11/28/20 14:53 40 mg Q4H PRN Administration Gas Retention Thiamine HCl 100 mg 11/05/20 09:00 11/09/20 12:17 Thiamine Hcl 100 Mg Tab PO 12/05/20 08:59 100 mg QAM MART Administration NPO Date Last Intake of Fluids: 11/09/20 Time Last Intake of Fluids: 18:00 Date Last Intake of Solids: 11/09/20 Time Last Intake of Solids: 18:00 Past Medical History Medical History Anemia Chronic hypertension Diabetes Diabetic wet gangrene of the foot PVD (peripheral vascular disease) Right middle cerebral artery stroke Exercise / Class Metabolic Activity IV < 2 Limit ADL/Bedbound Past Surgical History Surgical History History of cholecystectomy Status post amputation of leg Past Anesthesia History No Hx of Anesthesia Complications and No Family Hx of Anesthesia Complications History of PONV No Hx of PONV and No Hx of Motion Sickness Social History Smoking Status: Never smoker Physical Exam Vital Signs Last Vital Signs Temp 36.2 C L 11/10/20 09:06 Pulse 95 H 11/10/20 09:06 Resp 95 H 11/10/20 09:06 BP 107/56 L 11/10/20 09:06 Pulse Ox 99 11/10/20 09:06 Testing Laboratory Results 11/10/20 08:42 PT 11.4 Seconds (9.0-12.0) 10/18/20 14:25 INR 1.1 (0.9-1.1) 10/18/20 14:25 APTT < 20.0 Seconds (21.0-31.0) L 10/18/20 14:25 Hemoglobin A1c 12.9 % (4.5-5.6) H 10/19/20 05:43 Urine Color Yellow 11/04/20 12:10 Urine Appearance Cloudy (Clear) A 11/04/20 12:10 Urine pH 7.0 (4.5-7.5) 11/04/20 12:10 Ur Specific Flasher 1.020 (1.000-1.030) 11/04/20 12:10 Urine Protein Negative (Negative) 11/04/20 12:10 Urine Glucose (UA) Negative (Negative) 11/04/20 12:10 Urine Ketones Trace (Negative) H 11/04/20 12:10 Urine Nitrite Negative (Negative) 11/04/20 12:10 Ur Leukocyte Esterase 1+ (Negative) H 11/04/20 12:10 Urine WBC (Auto) 10-30 /hpf (0-5) H 11/04/20 12:10 Urine RBC (Auto) 10-30 /hpf (0-4) H 11/04/20 12:10 U Hyaline Cast (Auto) 1-5 /lpf (0-5) 11/04/20 12:10 U Epithel Cells (Auto) 10-20 /lpf (0-5) H 11/04/20 12:10 Urine Bacteria (Auto) Negative (Negative) 11/04/20 12:10 10/25/20 15:50 Gram Stain - Final Leg,Left Aerobic and Anaerobic Culture - Final Enterococcus faecalis Proteus mirabilis 10/25/20 15:50 Gram Stain - Final Foot,Left Aerobic and Anaerobic Culture - Final Enterococcus faecalis Proteus mirabilis 10/23/20 11:19 Aerobic Blood Culture - Final Blood No growth in Aerobic bottle after 5 days. Anaerobic Blood Culture - Final No growth in Anaerobic bottle after 5 days. 10/23/20 11:04 Aerobic Blood Culture - Final Blood No growth in Aerobic bottle after 5 days. Anaerobic Blood Culture - Final No growth in Anaerobic bottle after 5 days. 10/18/20 15:17 Aerobic Blood Culture - Final Blood No growth in Aerobic bottle after 5 days. Anaerobic Blood Culture - Final No growth in Anaerobic bottle after 5 days. 10/18/20 15:19 Aerobic Blood Culture - Final Blood No growth in Aerobic bottle after 5 days. Anaerobic Blood Culture - Final 10/18/20 15:39 Urine Culture - Final Urine,Indwelling Cath Three types of organisms present, all low counts probable skin valerio. No further identifications or sensitivities to follow. 10/18/20 14:31 Gram Stain - Final Ankle Wound Culture - Final Providencia rettgeri 11/10/20 07:56 POC Glucose 137 H Electrocardiogram Date: 10/18/20 Findings: + NSST changes, + ST @ (106) and + PA (possible old anterior and inferior infarcts) Chest X-Ray Date: 10/18/20 Findings: + NAD and + atelectasis (mild)
--- NOTE | 2020-11-10 09:20 | History & Physical Bridge Note ---
Date of Service November 10, 2020 History & Physical Bridge Note I have examined the patient, reviewed the History & Physical and in the interval since the performance of the History & Physical I have noted the following changes of clinical significance: no changes noted. Leukocytosis and platelets elevated but down trending. Wound with active drainage and surrounding erythema. Proceed as planned.
[2020-11-10] MEDS ORDERED: VANCOMYCIN HCL 1 GM/270 ML BAG ONE (09:28)
[2020-11-10 09:33] LABS: BUN Creatinine Ratio 45.7 (10-20); Calcium 10.5 mg/dl (8.5-10.1); Creatinine Clr Calc Pharmacy 112.9 ml/min; Est GFR (African American) 132.6 ml/min; Est GFR (Non-African American) 114.4 ml/min; Potassium 4.5 mmol/L (3.5-5.1)
[2020-11-10] MEDS: INSULIN ASPART 100 UNITS/ML 3 ML PEN SC SCH ×2 (09:55→15:59)
[2020-11-10] MEDS: ASCORBIC ACID 500 MG TAB PO SCH (09:55)
[2020-11-10] MEDS: THIAMINE HCL 100 MG TAB PO SCH (09:56)
[2020-11-10] MEDS: POLYETHYLENE (MIRALAX) 17 GM PACK PO SCH (09:56)
[2020-11-10] MEDS: FERROUS GLUCONATE 324 MG TAB PO SCH (09:56)
[2020-11-10] MEDS: HEPARIN SOD 5,000 UNIT/0.5 ML VIAL SQ SCH (09:56)
[2020-11-10] MEDS: CEROVITE ADV FORMULA TAB PO SCH (09:56)
[2020-11-10] MEDS: ASPIRIN 81 MG ECTAB PO SCH (09:57)
[2020-11-10] MEDS: ATORVASTATIN 40 MG TAB PO SCH (09:57)
[2020-11-10] MEDS: CLOPIDOGREL BISULFATE 75 MG TAB PO SCH (09:57)
[2020-11-10] MEDS ORDERED: PROPOFOL IV EMULSION 10 MG/ML 20 ML VIAL IV ONE (10:16)
[2020-11-10] MEDS ORDERED: PHENYLEPHRINE 100MCG/ML 5ML SYR ONE (10:16)
[2020-11-10] MEDS ORDERED: LIDOCAINE 2% 2 ML VIAL/AMP(20MG/ML) INFIL ONE (10:16)
[2020-11-10] MEDS ORDERED: ONDANSETRON INJ 2 MG/ML 2 ML VIAL ONE ×2 (10:16→12:10)
[2020-11-10] MEDS ORDERED: KETAMINE 50 MG/5 ML SYRINGE ONE (10:28)
[2020-11-10] MEDS ORDERED: PIPERACILL/TAZOBAC CONSULT ACTIVE PRN (12:18)
[2020-11-10] MEDS ORDERED: VANCOMYCIN CONSULT ACTIVE PRN (12:18)
--- NOTE | 2020-11-10 12:22 | Post Operative Brief Note ---
PG Immediate Post Op with CF Date of Surgery November 10, 2020 Pre & Post Diagnosis l limb Operation Date: 11/10/20 09:00 Pre-Op Diagnosis: left lower extremity amputation wound infection Post-Op Diagnosis: left lower extremity amputation wound infection I identified the patient and participated in the time-out.: Yes Procedure Operation Date: 11/10/20 09:00 Actual Procedures p Left Lower Extremity Incision and Drainage with Amputation Revision(Left) - Luis A Vieira MD Surgeon Luis A Vieira MD Inspection Manager Rancho Moore PA-C Estimated Blood Loss 100 Findings Consistent with Post-Op Diagnosis Hemopurulent abscess in posterior flap. Specimens Specimen Description: Culture#1 left lower extremity amputation wound Culture#2 left lower extremity amputation wound Culture#3 left lower extremity amputation wound Drains Aguilar Catheter and Donn-Muj[place] Drain Anesthesia Type General Regional
[2020-11-10] MEDS ORDERED: VANCOMYCIN HCL 1,000 MG in SODIUM CHLORIDE 0.9% 250 ML IV SCH (12:30)
[2020-11-10] MEDS ORDERED: ALBUMIN HUMAN 5% 12.5 GM/250 ML VIAL IV ONE (12:31)
[2020-11-10] MEDS ORDERED: PHENYLEPHRINE HCL 10 MG/ML VIAL ONE ×3 (12:40)
[2020-11-10] MEDS: PHENYLEPHRINE 100MCG/ML 5ML SYR IV PRN ×2 (12:47→13:02)
[2020-11-10] MEDS ORDERED: PIPERACILLIN/TAZOBACTAM 4.5 GM in DEXTROSE 5% 100 ML IV ONE (13:00)
[2020-11-10 13:05] LABS: Hematocrit (blood only) 22.2 % (37-47); Hemoglobin 6.7 g/dL (12.0-16.0)
[2020-11-10] MEDS ORDERED: SODIUM CHLORIDE 0.9% 250 ML IV PRN (13:15)
[2020-11-10] MEDS ORDERED: VANCOMYCIN HCL 750 MG in SODIUM CHLORIDE 0.9% 250 ML IV SCH (14:00)
--- NOTE | 2020-11-10 14:26 | Anesthesiology Progress Note ---
Date of Service November 10, 2020 Anesthesia Post Procedure Vital Signs Vital Signs: Temp Pulse Pulse Pulse Resp BP Pulse Ox 11/10/20 14:15 114 H 15 90/58 L 93 11/10/20 14:05 115 H 16 84/57 L 94 11/10/20 13:55 115 H 18 94/55 L 95 11/10/20 13:45 117 H 20 105/68 94 11/10/20 13:35 114 H 21 96/59 L 95 11/10/20 13:25 114 H 13 86/55 L 100 11/10/20 13:15 36.2 C L 112 H 24 114/68 99 11/10/20 13:05 111 H 18 147/69 H 100 11/10/20 12:55 117 H 23 91/64 L 100 11/10/20 12:45 115 H 22 77/50 L 99 11/10/20 12:35 114 H 14 95/76 L 100 11/10/20 12:26 37.2 C 113 H 23 88/56 L 100 11/10/20 12:21 37.2 C 108 H 26 H 123/70 100 11/10/20 09:06 36.2 C L 95 H 18 107/56 L 99 11/10/20 07:00 94 H 11/10/20 06:45 36.8 C 92 H 20 101/66 94 11/10/20 03:39 36.9 C 82 20 103/59 L 96 11/09/20 23:03 36.8 C 80 20 93/54 L 97 11/09/20 22:19 86 11/09/20 19:27 36.6 C 84 20 109/76 100 11/09/20 16:43 84 11/09/20 16:24 37.1 C 86 16 104/64 97 11/09/20 15:43 36.7 C 93 H 18 102/69 90 11/09/20 15:03 101 H Pain Intensity Lower Back: Pain Intensity: 3 Left Leg: Pain Intensity: 3 Left Hand: Pain Intensity: 3 Notes Mental Status: alert / awake / arousable Patient Amnestic to Procedure: Yes Nausea / Vomiting: adequately controlled Pain: adequately controlled Airway Patency, RR, SpO2: stable & adequate BP & HR: stable & adequate and see Notes below Hydration State: stable & adequate and see Notes below Anesthetic Complications: no major complications apparent and see Notes below Notes: The patient underwent an I and D of her amputated leg. Preoperatively, she was oriented to herself and following commands but was not oriented to place or time. Consent for anesthesia was obtained from her . Her preoperative hgb was 8.1. She underwent a general anesthetic and required multiple boluses of fluid and phenylephrine by Shila the HANNAH to maintain normotension. She remained hypotensive in PACU and was given albumin 500 ml as well as several boluses of phenylephrine. The patient has also been tachycardic. A postop hgb was found to be 6.7. The patient was type and crossed for one unit of PRBC. Just prior to transfusing the blood the PACU nurse told the patient that she would be giving blood to her. At this point the patient stated that she "did not want the blood" and that she "wanted to ." Dr. Bailey from [facility] came to evaluate the patient and determined that she did not have full understanding of the implications of receiving or not receiving blood. He called her and discussed the patient's current status with him. The patient's told Dr. Bailey to hold off on giving blood at this time and that he would be in to discuss the situation with his in thirty minutes. The patient's BSG was initially 230 in the PACU and is now 284. She will be given Novolog 8 units SC. The patient has not received any phenylephrine over the past hour but her SBP remains in the 80s to 90s with HR in the 110s. She is receiving a 500 ml bolus of LR. The patient will go to the PCU for closer monitoring. Dr. Bailey and Dr. Sprague will discuss further treatment with her when he arrives.
[2020-11-10] MEDS ORDERED: INSULIN ASPART PER UNIT SC STA (14:33)
[2020-11-10] MEDS ORDERED: NovoLIN-R INSULIN PER UNIT CHARGE ONE (14:34)
[2020-11-10] MEDS ORDERED: INSULIN GLARGINE SOLOSTAR 100 UNITS/ML 3 ML PEN SC ONE (15:00)
--- NOTE | 2020-11-10 15:28 | Pharmacy Report ---
Pharmacy Vanc AUC Short Note - Date of Service November 10, 2020 - Assessment & Plan Assessment 50 year old F ordered empiric vancomycin and Zosyn for treatment of suspected wound infection. POD #0 s/p left lower extremity I&D w/ amputation revision. Antibiotics ordered to be continued for 48 hours. Left leg previously growing Enterococcus faecalis and Proteus mirabilis both sensitive to ampicillin. Left leg recultured in OR today and pending. Day # 1 of antimicrobial therapy. Plan Vancomycin * AUC/PRITI is the preferred PK/PD target for vancomycin * AUC guided dosing is effective and associated with decreased risk of nephrotoxicity compared to traditional trough targets * Expecting trough level of ~15 mcg/mL, which is predicted to achieve target AUC/PRITI of 400-600 mg/L.hr and may be associated with a 10 % risk of nephrotoxicity * Received 1 g in OR - will order maintenance dose at 750 mg IV q8h * Will order trough if antibiotics are too be continued beyond 48 hours Zosyn * 3.375 g IV q8h - appropriate, no change Pharmacy will continue to follow and will adjust dose/frequency as necessary. Thank you.
--- NOTE | 2020-11-10 15:41 | Hospitalist Progress Note ---
Date of Service November 10, 2020 Assessment & Plan (1) Diabetic wet gangrene of the foot: Plan: Seema Ramos is a 50yo female with history of DM2, CVA, HTN, HLD who presented with a gangrenous diabetic left foot ulcer on 10/18 who then underwent LLE BKA on 10/25. Required amputation revision on 11/10 due to dehiscence of wound and concern for deep infection. Post Op hypotension - sec to ?Acute on Chronic Anemia 2/2 Blood Loss/anesthesia Acute blood loss anemia after surgery. Chronic anemia likely multifactorial: anemia of chronic disease (given above-mentioned problems) and iron-deficiency (given low iron and ferritin). - Hgb 6.7 after surgery and patient mildly hypotensive to 80s-90s/50s - Patient refused blood transfusion. Patient able to make decisions. Also- Patient's (POA) in agreement with patients decision to not want blood transfusions. He would like to speak with Palliative care about various options before deciding about transition to comfort measures only - Palliative care consult placed - appreciate recs - continue ferrous gluconate 324mg PO QAM, continue after discharge - Trend daily CBC Sepsis secondary to diabetic gangrenous ulcer of L foot, s/p BKA and revision Worsening infection occurred in the setting of uncontrolled DM2, DKA (see below). Ceftriaxone IV initiated on 10/18, LLE BKE performed by Ortho on 10/25, Daptomycin IV started on 10/25 and transitioned to Augmentin on 10/31. - Ortho on board - appreciate recs - s/p BKA revision on 11/10 - see above - patient's would like her to remain on abx for now, but no blood - started on Vanco/Zosyn after surgery, continue for now, pending wound cultures - Continue wound care - Continue acetaminophen and oxycodone PRN pain - Trend daily CBC, BMP Thrombocytosis Platelets slowly increased from 700s to ~1000 over the course of 10 days. Suspect 2/2 post-surgical deep tissue infection. S/p amputation revision on 11/10. - trend daily CBC as stated above Delirium Suspect due to deep tissue infection. - continue to monitor T2DM - Patient noted to be in DKA on admission; DKA resolved on hospital day three - HbA1c 12.9% (10/19/20) - Patient's pre-hospitalization medication regimen adherence unclear; T2DM very poorly-controlled likely secondary to many factors including social stressors, caregiver education, other factors - SSI + Lantus while hospitalized - Glycemic consult - appreciate recs HTN/HLD - Continue home lisinopril, metoprolol, and statin History of CVA - Continue home statin, ASA, clopidogrel FEN/GI: carb-consistent, minced and moist diet Code Status: DNR/DNI DVT PPX: Heparin 5000 units SQ Q12H, Clopidogrel Dispo: PCU w/ tele (2) Sepsis: (3) Decubitus ulcer of left heel: (4) DKA (diabetic ketoacidosis): (5) Cellulitis: (6) Acute metabolic encephalopathy: Admission and Anticipated Discharge Date Admission Date: October 18, 2020 Supervising Physician Co-Signing Physician Notes Resident Physician Supervision Note: I independently interviewed and examined the patient and verified the polanco hi story and physical, reviewed labs and image studies and agree with resident Dr. Bailey findings and care plan. Subjective No acute events overnight. I assessed the patient after her amputation revision this morning. She appeared dysphoric and says she "wants to ". She was only oriented to person, place and month, but not day/year or situation. She denies pain or fever/chills. Review of Systems Review of Systems: Unobtainable due to mental health condition Physical Exam Physical Exam: General: A&O to self and place. Dysphoric affect. NAD. Cooperative. HEENT: Atraumatic, normocephalic. Pulm: CTAB A&P. -wheezes, -rales, -rhonchi. Symmetrical chest rise. No increase work of breathing. No respiratory distress. Cardiac: RRR, -mrg. Radial pulses intact and symmetrical. Abdominal: soft, non-tender, non-distended, BS x 4 Skin: LLE, s/p BKA revision, with dressing c/d/i Results & Data Results & Data ([facility]) Vital Signs (Past 12 Hours) Vital Signs Temp Pulse Pulse Pulse Resp BP Pulse Ox 11/10/20 15:27 36.9 C 115 H 20 90/57 L 98 11/10/20 14:45 36.8 C 110 H 23 111/70 95 11/10/20 14:35 112 H 24 102/62 97 11/10/20 14:25 114 H 26 H 85/64 L 95 11/10/20 14:15 114 H 15 90/58 L 93 11/10/20 14:05 115 H 16 84/57 L 94 11/10/20 13:55 115 H 18 94/55 L 95 11/10/20 13:45 117 H 20 105/68 94 11/10/20 13:35 114 H 21 96/59 L 95 11/10/20 13:25 114 H 13 86/55 L 100 11/10/20 13:15 36.2 C L 112 H 24 114/68 99 11/10/20 13:05 111 H 18 147/69 H 100 11/10/20 12:55 117 H 23 91/64 L 100 11/10/20 12:45 115 H 22 77/50 L 99 11/10/20 12:35 114 H 14 95/76 L 100 11/10/20 12:26 37.2 C 113 H 23 88/56 L 100 11/10/20 12:21 37.2 C 108 H 26 H 123/70 100 11/10/20 09:06 36.2 C L 95 H 18 107/56 L 99 11/10/20 07:00 94 H 11/10/20 06:45 36.8 C 92 H 20 101/66 94 11/10/20 03:39 36.9 C 82 20 103/59 L 96 Resident Activity Tracking Resident Involvement: Resident Care Provided Care Provided: Adult Hospital Medicine (1) DKA (diabetic ketoacidosis) Diabetes mellitus complication detail: without coma Diabetes mellitus type: other specified (including SALO) Qualified Code(s): E13.10 - Other specified diabetes mellitus with ketoacidosis without coma (2) Sepsis Sepsis acute organ dysfunction status: with acute organ dysfunction Sepsis type: sepsis due to unspecified organism Severe sepsis acute organ dysfunction type: encephalopathy Severe sepsis shock status: without septic shock Qualified Code(s): A41.9 - Sepsis, unspecified organism; R65.20 - Severe sepsis without septic shock; G93.40 - Encephalopathy, unspecified
--- NOTE | 2020-11-10 15:45 | Operative Report ---
PG Post Operative Report Pre & Post Diagnosis Pre-Op Diagnosis: left lower extremity amputation wound infection Post-Op Diagnosis: left lower extremity amputation wound infection I identified the patient and participated in the time-out.: Yes Procedure Operation Date: 11/10/20 09:00 Actual Procedures p with Amputation Revision(Left) - Luis A Vieira MD s Left Lower Extremity Incision and Drainage (Left) - Luis A Vieira MD Surgeon Luis A Vieira MD Furniture Repairer [place] PA-C Estimated Blood Loss 100 Findings Consistent with Post-Op Diagnosis Large amount of hemopurulent fluid was expressed through the distal stump. No obvious necrotic tissues. No evidence of osteomyelitis. Specimens Swab cultures x3 Drains 10 Lithuanian OZZY drain Anesthesia Type General Regional Complications none Disposition Accompanied Patient To Recovery: Yes Disposition: Recovery Room Indications 50-year-old female that we have been watching after a through knee amputation for wound healing. She had dehiscence of the wound at 2 weeks postop. She also had increasing white blood cell count and platelets as signs of ongoing inflammation and infection. Reviewed her clinical scenario with her power of traffic law attorney as well as her primary medical team, and we decided that this should be treated to eradicate infection. I recommended incision and debridement of the previous through knee amputation wound and consideration revision amputation. Risks and benefits were reviewed including the risk for blood loss. After discussion, the power of traffic law attorney was agreeable to rescind the DNR/DNI status for incision and debridement with revision amputation. Description of Procedure On the day of surgery, the patient was greeted in the preoperative holding area. The informed consent was reviewed and confirmed by myself and the patient. The patient identified the surgical site and was marked by me. The patient was then turned over to anesthesia. Patient was then taken to the operating place upon the OR table and anesthesia was induced. The airway was secured. All bony prominences well-padded. The pr evious sutures were removed prior to prepping. The central portion of the wound was dehisced. We were easily able to express significant amount of hemopurulent material from the distal residual limb wound. This area was scrubbed with Betadine and the remainder of the extremity was prepped with ChloraPrep. We draped the left lower extremity. Surgical timeout was called by the circulating nurse and verified all present. Antibiotic therapy was held until cultures were taken. We initiated procedure by opening the mostly healed wound sharply. This allowed access to the intact myodesis. This was opened to reveal significant amount of purulent hematoma material. Several swab cultures were taken. The myodesis flaps were open. We then began to copiously irrigate the wound. 3000 mL of f luid were run through. The gastroc flap appeared to be without evidence of significant necrotic breakdown. There did not appear to be an overwhelming fascial or soft tissue infection. The distal edge of the gastroc flap was resected. The posterior skin flap appeared to be thin and cellulitic. I did not feel to be adequate soft tissue coverage without significant tension to close the wound without amputation revision. The areas of cellulitic skin were marked and a transfemoral amputation was planned to matched primary closure. The anterior compartment was then elevated periosteally off the femur. Skin flaps were planned and incised along the medial lateral margins. This allowed exposure of the anterior and posterior compartments further. I resected the extensor mechanism remnant leaving some quad tendon for myodesis to the hamstrings. Also resected the majority of the gastroc flaps. The periosteum was exposed 360 degrees at the distal femoral shaft region. I then used a sag ittal saw to resect the distal femur at the level of little to allow adequate closure without cellulitic skin. Hemostasis was obtained along the way using Bovie electrocautery. At no point did I feel there was need for tourniquet due to hemostasis. In the posterior soft tissue flap, we dissected the previous neurovascular structures. They were still secure, I placed silk ties x2 around the artery and vein to resecure these. There were then transected. There was adequate hemostasis. The sciatic nerve was then transected high under traction to allow resection back into the soft tissues. The distal hamstrings appear to be healthy but were resected to reduce muscle tissue bulk to allow easy closure. Once we are back to clean muscle planes, we proceeded with another 3000 mL high flow irrigation. Tissues appear to be healthy enough for closure. There was adequate hemostasis the distal bone cut. We then performed a myodesis of the remaining edge of the quadricep tendon to the posterior hamstrings as well as the abductors coming from the medial side using 0 PDS suture. We placed a 10 Lithuanian round drain underneath the myodesis flaps and this exited the superior lateral thigh. 0 PDS suture was then used to oppose the fascial layer to support the skin closure from the posterior flap to the anterior flap. We had to revise the posterior skin flap to remove some ulcerated and extra skin. We then began skin closure using 2-0 nylon sutures in a vertical mattress fashion. Skin was closed without tension. The wounds were dressed with sterile Xeroform, sterile gauze, ABD and contained by web roll dressing, followed by a posterior sled splint using Ortho-Glass, contained by a flex master Harry wrap. Patient tolerated procedure well, was extubated the operative without com plication, and transferred to the recovery area in stable condition. Disposition: She will remain as an inpatient and undergo expanded spectrum parenteral empiric antibiotic coverage. Should follow the swab cultures from the OR to tailor the antibiotic therapy. She is on aspirin and Plavix at baseline which will cover for DVTs appropriately. She is not ambulatory. The limb is stable for transfers with caution. We will plan to take down the dressings on postop day 2 and likely remove the drain at that time. I attest to the content of the Intraoperative Record and any orders documented therein. Any exceptions are noted below.
[2020-11-10] MEDS ORDERED: PIPERACILLIN/TAZOBACTAM 3.375 GM in DEXTROSE 5% 100 ML IV SCH (19:00)
[2020-11-10] MEDS ORDERED: GLYCOPYRROLATE 0.2 MG/ML VIAL IV PRN (19:15)
[2020-11-10] MEDS ORDERED: ONDANSETRON 4 MG OD TAB SL PRN (19:15)
[2020-11-10] MEDS ORDERED: LORazepam 0.5 MG/1 ML VIAL IV PRN (19:15)
[2020-11-10] MEDS ORDERED: LORazepam 0.5 MG TAB PO PRN (19:15)
[2020-11-11] MEDS ORDERED: INSULIN ASPART 100 UNITS/ML 3 ML PEN SC SCH
[2020-11-11] MEDS: ACETAMINOPHEN 500 MG TAB PO SCH ×3 (05:10→20:34)
[2020-11-11] MEDS: INSULIN ASPART 100 UNITS/ML 3 ML PEN SC SCH (07:19)
[2020-11-11] MEDS: oxyCODONE HCL 10 MG TABCR (OxyCONTIN) PO SCH (08:07)
[2020-11-11] MEDS ORDERED: HYDROmorphone INJ 1 MG/ML SYRINGE IV PRN ×2 (09:04→11:54)
--- NOTE | 2020-11-11 12:50 | Palliative Care Consultation ---
Date of Consultation November 11, 2020 Assessment & Plan (1) Pain: related to recent amputation with immobility. She appears comfortable at this time but has opioid orders prn. I do not think that she needs two oral opioids and her renal function is surprisingly good. Would continue roxanol pr n. Hydromorphone has been ordered IV. Will increase dose frequency to every one hour as needed. (2) Palliative care encounter: I met with her at bedside. He is appropriately tearful and experiencing anticipatory grief. He unfortunately has his own health problems as well as other problems at the moment. He and Hope have discussed her wishes multiple times and he is confident that she would want a comfort oriented approach at this time. He tells me that his 24 yo son is particularly close to Hope and struggling with her decline. He does have great support from his daughter in law. We talked about what to expect. I anticipate that she will within the next few days. He does not have concerns about her comfort at this time. Palliative care will follow. 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 Bailey Attending Physician: Brenda Sprague MD History of Present Illness 50 yo lady with diabetes who had an ischemic CVA in 2013. While her speech was impaired due to the CVA, she was able to communicate. She was admitted earlier this month with mental status changes. She was found to have sepsis and cellulitis with subsequent gangrenous left lower extremity. She did have BKA and then recent I&D with revision of amputation. She is anemic and has continued to decline despite optimal treatment. Per her family's wishes, decision has been made to pursue comfort directed care. Allergies Allergy/AdvReac Type Severity Reaction Status Date / Time No Known Allergies Allergy Verified 10/18/20 18:10 Home Medications Medication Instructions Recorded Confirmed Type aspirin 81 mg tablet,delayed 81 mg PO DAILY 08/28/19 10/18/20 History release atorvastatin 40 mg tablet 40 mg PO DAILY 08/28/19 10/18/20 History clopidogrel 75 mg tablet (Plavix) 75 mg PO DAILY 08/28/19 10/18/20 History fesoterodine 8 mg tablet,extended 8 mg PO DAILY 08/28/19 10/18/20 History release 24 hr (Toviaz) insulin aspart U-100 100 unit/mL 0 unit SUBCUT ACHS 08/28/19 10/18/20 History (3 mL) subcutaneous pen (Novolog Flexpen U-100 Insulin aspart) lisinopril 20 mg tablet 20 mg PO DAILY 08/28/19 10/18/20 History metformin 500 mg tablet 500 mg PO BID 08/28/19 10/18/20 History metoprolol succinate 50 mg 50 mg PO DAILY 08/28/19 10/18/20 History tablet,extended release 24 hr pediatric multivitamin 2 tab PO DAILY 08/28/19 10/18/20 History insulin glargine 100 unit/mL (3 50 unit SUBCUT HS 10/28/20 10/28/20 History mL) subcutaneous pen (Lantus Solostar U-100 Insulin) Patient History Medical History Anemia Chronic hypertension Diabetes Diabetic wet gangrene of the foot PVD (peripheral vascular disease) Right middle cerebral artery stroke Surgical History History of cholecystectomy Status post amputation of leg Social History Smoking Status: Never smoker Preferred Language: Macedonian Communication Ability: Impaired Communication Ability Comment: hx of r mca stroke Midlevel Provider Required: No Beliefs That Will Affect Care: None Current Living Situation: Spouse Current Living Situation Comment: ? neglect Feels Safe at Home: Yes Assistive Devices: None Review of Systems Review of Systems: Unobtainable due to reduced consciousness [place] Symptom Assessment Scale PainAD 0/3 Dyspnea by observation 0/3 Palliative Performance Score 20% Physical Exam Constitutional: unresponsive ENMT: Mouth: + dry oral mucous membranes Respiratory: normal respiratory effort; no labored breathing Gastrointestinal (Abdomen): Percussion/Palpation: abdomen nontender Musculoskeletal: left BKA Neurologic: + obtunded left hemiparesis PG Care Time/CCT Total # of Minutes Spent Total Time Spent: 60 Total Time Spent with Patient: Total time spent is greater than 50% in coordination of care (as documented) at patient's floor/unit and/or counseling patient:symptom management, prognosis, family education and support Coding Level of Care Code 08084 Initial Inpt Care Lvl 2 Diagnoses Pain R52 Palliative care encounter Z51.5 PVD (peripheral vascular disease) I73.9 Diabetic wet gangrene of the foot E11.52 Status post amputation of leg Z89.619 Sepsis A41.9; R65.20; G93.40 Sepsis acute organ dysfunction status: with acute organ dysfunction Sepsis type: sepsis due to unspecified organism Severe sepsis acute organ dysfunction type: encephalopathy Severe sepsis shock status: without septic shock Stroke I63.9
--- NOTE | 2020-11-11 13:28 | Hospitalist Progress Note ---
Date of Service November 11, 2020 Assessment & Plan (1) Diabetic wet gangrene of the foot: Plan: Seema Ramos is a 50yo female with history of DM2, CVA, HTN, HLD who presented with a gangrenous diabetic left foot ulcer on 10/18 who then underwent LLE BKA on 10/25. Required amputation revision on 11/10 due to dehiscence of wound and concern for deep infection. 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 Chronic anemia likely multifactorial: anemia of chronic disease (given above-mentioned problems) and iron-deficiency (given low iron and ferritin). - Hgb 6.7 after surgery and patient mildly hypotensive to 80s-90s/50s - WEB MARKETING ANALYST - no blood transfusions, antibiotics or IV fluids Sepsis secondary to diabetic gangrenous ulcer of L foot, s/p BKA and revision Worsening infection occurred in the setting of uncontrolled DM2, DKA (see below). Ceftriaxone IV initiated on 10/18, LLE BKE performed by Ortho on 10/25, Daptomycin IV started on 10/25 and transitioned to Augmentin on 10/31. 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 ANALYST - no antibiotics or IV fluids T2DM - stopped medications HTN/HLD - stopped medications History of CVA - stopped medications FEN/GI: carb-consistent, minced and moist diet Code Status: DNR/DNI DVT PPX: none (WEB MARKETING ANALYST) Dispo: med/surg, patient and family would like for her to stay in the hospital rather than go home (2) Sepsis: (3) Decubitus ulcer of left heel: (4) DKA (diabetic ketoacidosis): (5) Cellulitis: (6) Acute metabolic encephalopathy: Admission and Anticipated Discharge Date Admission Date: October 18, 2020 Supervising Physician Co-Signing Physician Notes Resident Physician Supervision Note: I independently interviewed and examined the patient and verified the polanco history and physical, reviewed labs and image studies and agree with resident Dr. Bailey findings and care plan. Subjective No acute events overnight. Appears dysphoric but not talkative this morning. No complaints. Review of Systems Review of Systems: Unobtainable due to cognitive status Physical Exam Physical Exam: General: A&O to self. Dysphoric affect. Appears pale. Cooperative. HEENT: Atraumatic, normocephalic. Pulm: CTAB A&P. -wheezes, -rales, -rhonchi. Symmetrical chest rise. No increase work of breathing. No respiratory distress. Cardiac: RRR, -mrg. Radial pulses intact and symmetrical. Delayed cap refill. Abdominal: soft, non-tender, non-distended, BS x 4 Skin: LLE, s/p BKA revision, with dressing c/d/i Resident Activity Tracking Resident Involvement: Resident Care Provided Care Provided: Adult Hospital Medicine (1) DKA (diabetic ketoacidosis) Diabetes mellitus complication detail: without coma Diabetes mellitus type: other specified (including SALO) Qualified Code(s): E13.10 - Other specified diabetes mellitus with ketoacidosis without coma (2) Sepsis Sepsis acute organ dysfunction status: with acute organ dysfunction Sepsis type: sepsis due to unspecified organism Severe sepsis acute organ dysfunction type: encephalopathy Severe sepsis shock status: without septic shock Qualified Code(s): A41.9 - Sepsis, unspecified organism; R65.20 - Severe sepsis without septic shock; G93.40 - Encephalopathy, unspecified
--- NOTE | 2020-11-11 17:44 | Orthopedic Progress Note ---
Date of Service November 11, 2020 Assessment & Plan (1) Status post amputation of leg: Postop day 1 from revision to transfemoral amputation. Postop course complicated by expected postoperative and multifactorial anemia. I spoke with her at length yesterday afternoon. I have offered my support and will continue to follow as needed. With regard to the dressing, we can minimize manipulation. OZZY drain can likely be discontinued based on its output. I do not want to cause any further discomfort. I will discussed this with her . Continue to monitor its output for now. I can be contacted directly for any questions this weekend. Subjective Seen on rounds this morning. She was minimally responsive to my greeting. Review of Systems All systems reviewed & are unremarkable except as noted in HPI & below. Physical Exam Left lower extremity: The dressing was clean dry and intact. OZZY drain had serosanguineous drainage. She appeared comfortable Results & Data Results & Data Laboratory Results . Diagnostic Findings . PG Care Time/CCT Total # of Minutes Spent Total Time Spent with Patient: Total time spent is greater than 50% in coordination of care (as documented) at patient's floor/unit and/or counseling patient: Coding Level of Care Code 50813 Post Operative Follow-Up Diagnoses Status post amputation of leg Z89.619
[2020-11-12] MEDS: ACETAMINOPHEN 500 MG TAB PO SCH ×2 (05:12→15:26)
--- NOTE | 2020-11-12 06:38 | Hospitalist Progress Note ---
Date of Service November 12, 2020 Assessment & Plan (1) Diabetic wet gangrene of the foot: Plan: Seema Ramos is a 50yo female with history of DM2, CVA, HTN, HLD who presented with a gangrenous diabetic left foot ulcer on 10/18 who then underwent LLE BKA on 10/25. Required amputation revision on 11/10 due to dehiscence of wound and concern for deep infection. 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 Chronic anemia likely multifactorial: anemia of chronic disease (given above-mentioned problems) and iron-deficiency (given low iron and ferritin). - Hgb 6.7 after surgery and patient mildly hypotensive to 80s-90s/50s - i mprovement today to 110/70s - PINION POLISHER - no blood transfusions, antibiotics or IV fluids Sepsis secondary to diabetic gangrenous ulcer of L foot, s/p BKA and revision Worsening infection occurred in the setting of uncontrolled DM2, DKA (see below). Ceftriaxone IV initiated on 10/18, LLE BKE performed by Ortho on 10/25, Daptomycin IV started on 10/25 and transitioned to Augmentin on 10/31. 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 - no antibiotics or IV fluids T2DM - stopped medications HTN/HLD - stopped medications History of CVA - stopped medications FEN/GI: carb-consistent, minced and moist diet Code Status: DNR/DNI DVT PPX: none (PINION POLISHER) Dispo: med/surg, patient and family would like for her to stay in the hospital rather than go home (2) Sepsis: (3) Decubitus ulcer of left heel: (4) DKA (diabetic ketoacidosis): (5) Cellulitis: (6) Acute metabolic encephalopathy: (7) Acute blood loss anemia: (8) Hypercalcemia: Admission and Anticipated Discharge Date Admission Date: October 18, 2020 Supervising Physician Co-Signing Physician Notes Attending Attestation - Pt seen & examined, chart reviewed, care plan d/w resident Dr James Franz. I agree w/ the polanco components of his documentation. Pt's at bedside this am. Support given to him. Pt with eyes open at times but does not follow commands. At one point she was crying. gen - comfortable, looks older than stated age, aphasic mouth - MM dry skin - severe pallor heart - tachy, s1 s2 lungs - decreased BS bases b/l abd - soft NT ext - left BKA, drain in place; right foot w/o edema, cool to touch psych - oriented x 0 A/P: s/p Left BKA 2nd to diabetic foot infection earlier this month, followed by revision on 11/10. Latter complicated by acute blood loss anemia, hypotension, etc. Transitioned to comfort care measures on 11.10.20. Remains on scheduled dilaudid. May need adjustment soon. Suspect she has pain from the left stump operative site. Getachew Flanagan MD Subjective NAEO. Patient seen at bedside this morning, upon entering the room she is looking around. She looks at me intermittently, but will not respond to questions or commands. Does not appear to be in any significant pain. Review of Systems Review of Systems: Unobtainable due to cognitive status Physical Exam Physical Exam: General: Pale and frail appearing 50-year-old female who is lying back in her hospital bed, awake upon my arrival. She is alert to her surroundings, but is unable to follow commands verbally. No acute distress. HEENT: NCAT. Eyes - Sclera are white, anicteric, and without injection. Conjunctival pallor is present. Cardiac: Mildly tachycardic with regular rhythm; S1 and S2 present with no murmurs, rubs, or gallops. Pulmonary: Good respiratory effort with symmetric expansion of the chest. No use of accessory muscles. Lungs were clear to auscultation bilaterally with no crackles or wheezes. Abdominal: Normoactive bowel sounds. Abdomen was soft, nondistended, and non- tender to palpation. Extremities: Upper and lower extremities are warm and well perfused. Left below-knee amputation noted. Dressings are clean dry and intact. Resident Activity Tracking Resident Involvement: Resident Care Provided Care Provided: Adult Hospital Medicine (1) DKA (diabetic ketoacidosis) Diabetes mellitus complication detail: without coma Diabetes mellitus type: other specified (including SALO) Qualified Code(s): E13.10 - Other specified diabetes mellitus with ketoacidosis without coma (2) Sepsis Sepsis acute organ dysfunction status: with acute organ dysfunction Sepsis type: sepsis due to unspecified organism Severe sepsis acute organ dysfunction type: encephalopathy Severe sepsis shock status: without septic shock Qualified Code(s): A41.9 - Sepsis, unspecified organism; R65.20 - Severe sepsis without septic shock; G93.40 - Encephalopathy, unspecified
[2020-11-12] MEDS: MoRPHine SULFATE 5 MG/0.25 ML UDP PO PRN ×2 (10:33→14:25)
--- NOTE | 2020-11-12 10:46 | Orthopedic Progress Note ---
Date of Service November 12, 2020 Assessment & Plan (1) Status post amputation of leg: Postop day 2 from revision to transfemoral amputation. Comfort measures only. Discussed drain w - To avoid causing discomfort, we will leave in place while hospitalized. I can be contacted directly for any questions this weekend. Subjective at bedside. We discussed the residual OZZY drain. Review of Systems All systems reviewed & are unremarkable except as noted in HPI & below. Physical Exam Somnolent. Nursing checking vitals. Made eye contact LLE: residual limb dressing c/d/i. Drain with minimal output. Results & Data Results & Data Laboratory Results . Diagnostic Findings . PG Care Time/CCT Total # of Minutes Spent Total Time Spent with Patient: Total time spent is greater than 50% in coordination of care (as documented) at patient's floor/unit and/or counseling patient: Coding Level of Care Code 93122 Post Operative Follow-Up Diagnoses Status post amputation of leg Z89.619
[2020-11-12] MEDS ORDERED: ACETAMINOPHEN 10MG/ML PEDIATRIC DOSING IV PRN (15:09)
[2020-11-12] MEDS ORDERED: ACETAMINOPHEN 65 ML IV PRN (15:15)
--- NOTE | 2020-11-12 17:34 | Hospitalist Progress Note ---
Date of Service November 12, 2020 Assessment & Plan Admission and Anticipated Discharge Date Admission Date: October 18, 2020 Subjective [] is a [] y/o female G[]P[] currently at [] [facility] with an KAIN [] as determined by (LMP vs Ultrasound) who is here for (Reason for induction/). Her was complicated by []. [] contractions; [] movement; [] fluid loss; [] bloody show Had regular appointments with OB. Labs: (Date []) Blood type: [] Antibody screen: [] Hg: [] (today) Hct: [] (today) WBC: [] (today) Plt: [] (today) Rubella: [] VDRL/RPR: [] Gonorrhea: [] Chlamydia: [] HIV: [] HbSAg: [] GBS: [] Other screens: cff-DNA: [] (see scanned documents) CF: [] SMA: [] General: Alert, oriented. No acute distress. Cardiac: Regular rate and rhythm, no murmurs/rubs/gallops. Respiratory: Clear to auscultation bilaterally a/p, no wheezes/rales/rhonchi. No increased work of breathing. Symmetrical chest rise. No respiratory distress. Pelvic: Dilation _cm; Effacement _; Station _ per Lower Extremities: No lower extremity edema or swelling. No deep calf pain. Ronnie's negative bilaterally Review of Systems Review of Systems: Review of Systems Denies fever, chills, sweats Denies shortness of breath, difficulty breathing, chest pain, palpitations, chest pressure. Denies breast pain. Denies dysuria. Denies headache or changes in vision. Results & Data Results & Data ([facility]) Vital Signs (Past 12 Hours) Vital Signs Temp Pulse Resp BP Pulse Ox 11/12/20 10:11 36.9 C 110 H 22 117/74 95
--- NOTE | 2020-11-13 05:55 | Billing Data ---
Date of Service November 12, 2020 Coding Level of Care Code 49339 Subseq Hosp Care Lvl 1
[2020-11-13] MEDS: MoRPHine SULFATE 5 MG/0.25 ML UDP PO PRN (06:02)
--- NOTE | 2020-11-13 10:20 | Hospitalist Progress Note ---
Date of Service November 13, 2020 Assessment & Plan (1) Diabetic wet gangrene of the foot: Plan: Seema Ramos is a 50yo female with history of DM2, CVA, HTN, HLD who presented with a gangrenous diabetic left foot ulcer on 10/18 who then underwent LLE BKA on 10/25. Required amputation revision on 11/10 due to dehiscence of wound and concern for deep infection. Patient and family made decision to change to comfort measures only - palliative following Goals of Care - Comfort Measures Only - changed to SECURITIES COUNSELOR status on 11/10 - palliative on board - appreciate recs - PRN pain medications/anti-muscarinics on board - patient's pain controlled and she appears comfortable at this time Post-op hypotension - suspect contributory from [id number]-[id number] anemia -- resolved Acute blood loss anemia after surgery. Chronic anemia likely multifactorial: anemia of chronic disease (given above-mentioned problems) and iron-deficiency (given low iron and ferritin). - Hgb 6.7 after surgery and patient mildly hypotensive to 80s-90s/50s - improvement today to 110/70s - SECURITIES COUNSELOR - no blood transfusions, antibiotics or IV fluids Sepsis secondary to diabetic gangrenous ulcer of L foot, s/p BKA and revision Worsening infection occurred in the setting of uncontrolled DM2, DKA (see below). Ceftriaxone IV initiated on 10/18, LLE BKE performed by Ortho on 10/25, Daptomycin IV started on 10/25 and transitioned to Augmentin on 10/31. - s/p BKA revision on 11/10 - now SECURITIES COUNSELOR - no antibiotics or IV fluids T2DM - stopped medications HTN/HLD - stopped medications History of CVA - stopped medications FEN/GI: carb-consistent, minced and moist diet Code Status: DNR/DNI DVT PPX: none (SECURITIES COUNSELOR) Dispo: med/surg, patient and family would like for her to stay in the hospital rather than go home (2) Sepsis: (3) Decubitus ulcer of left heel: (4) DKA (diabetic ketoacidosis): (5) Cellulitis: (6) Acute metabolic encephalopathy: Admission and Anticipated Discharge Date Admission Date: October 18, 2020 Supervising Physician Co-Signing Physician Notes Attending Attestation - Pt seen & examined, chart reviewed, care plan d/w resident Dr Deshawn Bailey. I agree w/ the polanco components of his documentation. Pt's at bedside once again today. He states he keeps reaching into the air with her right arm. Otherwise, no speaking or other meaningful movements. gen - comfortable, looks older than stated age, aphasic; occasionally just looks at me when I call her name mouth - MM dry skin - severe pallor heart - tachy, s1 s2 lungs - decreased BS bases b/l abd - soft NT ND BS+ ext - left BKA, drain in place; right foot w/o edema, cool to touch, pulses right foot 1-2+ A/P: s/p Left BKA 2nd to diabetic foot infection earlier this month, followed by revision on 11/10. Latter complicated by acute blood loss anemia, hypotension, etc. Transitioned to comfort care measures on 11.10.20. Remains on comfort care measures. Dispo - home with hospice? SNF with hospice? continue in-hospital comfort care anticipating end-of-life in the next 5-7 days?? Appreciate palliative care consultation. Getachew Flanagan MD Subjective No acute events overnight. Currently hemodynamically stable. No complaints of pain or signs of pain/discomfort. Getting scheduled pain medications. Would not gesture to me or talk to me today. Appears dysphoric. Review of Systems Review of Systems: Unobtainable due to cognitive status Physical Exam Physical Exam: General: A&O to self. Dysphoric affect. Appears pale. Cooperative. HEENT: Atraumatic, normocephalic. Pulm: CTAB A&P. -wheezes, -rales, -rhonchi. Symmetrical chest rise. No increase work of breathing. No respiratory distress. Cardiac: RRR, -mrg. Radial pulses intact and symmetrical. Delayed cap refill. Abdominal: soft, non-tender, non-distended, BS x 4 Skin: LLE, s/p BKA revision, with dressing c/d/i Resident Activity Tracking Resident Involvement: Resident Care Provided Care Provided: Adult Hospital Medicine (1) DKA (diabetic ketoacidosis) Diabetes mellitus complication detail: without coma Diabetes mellitus type: other specified (including SALO) Qualified Code(s): E13.10 - Other specified diabetes mellitus with ketoacidosis without coma (2) Sepsis Sepsis acute organ dysfunction status: with acute organ dysfunction Sepsis type: sepsis due to unspecified organism Severe sepsis acute organ dysfunction type: encephalopathy Severe sepsis shock status: without septic shock Qualified Code(s): A41.9 - Sepsis, unspecified organism; R65.20 - Severe sepsis without septic shock; G93.40 - Encephalopathy, unspecified
--- NOTE | 2020-11-13 12:30 | Palliative Care Progress Note ---
Date of Service November 13, 2020 Assessment & Plan (1) Pain: Plan: She has had roxanol x 3 in last 24 hours for total OME of 15mg. Monitor with no po intake and decreased urine output for toxicity. (2) Palliative care encounter: Plan: I spoke with her at bedside. She does not appear to be imminently dying but will likely in days to a week. Continue current po medications. (3) Diabetic wet gangrene of the foot: (4) PVD (peripheral vascular disease): (5) Sepsis: (6) Stroke: Admission and Anticipated Discharge Date Admission Date: October 18, 2020 Subjective Eyes open. Moving right arm. Nonverbal. No po intake. Appears comfortable. is at bedside. Review of Systems Review of Systems: Unobtainable due to cognitive status [place] Symptom Assessment Scale PainAD 0/3 Dyspnea by observation 0/3 Palliative Performance Score 20% Physical Exam Constitutional: no acute distress ENMT: Mouth: + dry oral mucous membranes Respiratory: normal respiratory effort; no labored breathing Cardiovascular: Extremities: no edema Gastrointestinal (Abdomen): soft, non tender Musculoskeletal: Extremities: + muscle atrophy Neurologic: left hemiparesis Genitourinary: pierre catheter, concentrated urine Results & Data ([facility]) Vital Signs (Past 12 Hours) Vital Signs Pulse Resp BP Pulse Ox 11/13/20 11:47 108 H 18 147/82 H 99 PG Care Time/CCT Total # of Minutes Spent Total Time Spent with Patient: Total time spent is greater than 50% in coordination of care (as documented) at patient's floor/unit and/or counseling patient: Coding Level of Care Code 49486 Subseq Hosp Care Lvl 2 Diagnoses Pain R52 Palliative care encounter Z51.5 Diabetic wet gangrene of the foot E11.52 PVD (peripheral vascular disease) I73.9 Sepsis A41.9; R65.20; G93.40 Sepsis acute organ dysfunction status: with acute organ dysfunction Sepsis type: sepsis due to unspecified organism Severe sepsis acute organ dysfunction type: encephalopathy Severe sepsis shock status: without septic shock Stroke I63.9 (1) Sepsis Sepsis acute organ dysfunction status: with acute organ dysfunction Sepsis type: sepsis due to unspecified organism Severe sepsis acute organ dysfunction type: encephalopathy Severe sepsis shock status: without septic shock Qualified Code(s): A41.9 - Sepsis, unspecified organism; R65.20 - Severe sepsis without septic shock; G93.40 - Encephalopathy, unspecified
--- NOTE | 2020-11-13 20:13 | Billing Data ---
Date of Service November 13, 2020 Coding Level of Care Code 28912 Subseq Hosp Care Lvl 1
[2020-11-14] MEDS: MoRPHine SULFATE 5 MG/0.25 ML UDP PO PRN ×2 (05:39→11:48)
--- NOTE | 2020-11-14 13:10 | Hospitalist Progress Note ---
Date of Service November 14, 2020 Assessment & Plan (1) Diabetic wet gangrene of the foot: Plan: Seema Ramos is a 50yo female with history of DM2, CVA, HTN, HLD who presented with a gangrenous diabetic left foot ulcer on 10/18 who then underwent LLE BKA on 10/25. Required amputation revision on 11/10 due to dehiscence of wound and concern for deep infection. Patient and family made decision to change to comfort measures only - palliative following. Goals of Care - Comfort Measures Only - changed to NOVELTY MAKER status on 11/10 - palliative on board - appreciate recs - PRN pain medications/anti-muscarinics on board - patient's pain controlled and she appears comfortable at this time Post-op hypotension - suspect contributory from uhnan-ng-moueekc anemia -- resolved Acute blood loss anemia after surgery. Chronic anemia likely multifactorial: anemia of chronic disease (given above-mentioned problems) and iron-deficiency (given low iron and ferritin). - Hgb 6.7 after surgery and patient mildly hypotensive to 80s-90s/50s - improvement today to 110/70s - NOVELTY MAKER - no blood transfusions, antibiotics or IV fluids Sepsis secondary to diabetic gangrenous ulcer of L foot, s/p BKA and revision Worsening infection occurred in the setting of uncontrolled DM2, DKA (see below). Ceftriaxone IV initiated on 10/18, LLE BKE performed by Ortho on 10/25, Daptomycin IV started on 10/25 and transitioned to Augmentin on 10/31. - s/p BKA revision on 11/10 - now NOVELTY MAKER - no antibiotics or IV fluids T2DM - stopped medications HTN/HLD - stopped medications History of CVA - stopped medications FEN/GI: carb-consistent, minced and moist diet Code Status: DNR/DNI DVT PPX: none (NOVELTY MAKER) Dispo: med/surg, patient and family would like for her to stay in the hospital rather than go home (2) Sepsis: (3) Decubitus ulcer of left heel: (4) DKA (diabetic ketoacidosis): (5) Cellulitis: (6) Acute metabolic encephalopathy: Admission and Anticipated Discharge Date Admission Date: October 18, 2020 Supervising Physician Co-Signing Physician Notes I personally examined the patient and verified all polanco points of history and exam, discussed case, and agree with decision making with Dr Bailey Patient without any meaningful response when I see her. at the bedside, offered empathy and support, answered all questions to the best my ability. Vitals noted, staring to the side. HEENT normocephalic atraumatic mucous membranes moist. Breathing unlabored and does appear comfortable. Skin without pallor. Comfort measurescontinue inpatient for now, follow for potential rate of her decline to best determine ongoing inpatient comfort care versus planning towards SNF, would be overwhelmed at home, given that she may start to decline quite quickly, we will continue care in the hospital for now. Subjective No acute events overnight. Patient required Roxanol x1 for pain. This morning she would not do more than nod several times when spoken to. She denies pain or concerns. Review of Systems Review of Systems: Unobtainable due to cognitive status Physical Exam Physical Exam: General: A&O status unable to be assessed as patient is not responding to me. Dysphoric affect. Appears pale. Cooperative. HEENT: Atraumatic, normocephalic. Pulm: CTAB A&P. -wheezes, -rales, -rhonchi. Symmetrical chest rise. No increase work of breathing. No respiratory distress. Cardiac: RRR, -mrg. Radial pulses intact and symmetrical. Delayed cap refill. Abdominal: soft, non-tender, non-distended, BS x 4 Skin: LLE, s/p BKA revision, with dressing c/d/i Resident Activity Tracking Resident Involvement: Resident Care Provided Care Provided: Adult Hospital Medicine (1) DKA (diabetic ketoacidosis) Diabetes mellitus complication detail: without coma Diabetes mellitus type: other specified (including SALO) Qualified Code(s): E13.10 - Other specified diabetes mellitus with ketoacidosis without coma (2) Sepsis Sepsis acute organ dysfunction status: with acute organ dysfunction Sepsis type: sepsis due to unspecified organism Severe sepsis acute organ dysfunction type: encephalopathy Severe sepsis shock status: without septic shock Qualified Code(s): A41.9 - Sepsis, unspecified organism; R65.20 - Severe sepsis without septic shock; G93.40 - Encephalopathy, unspecified
--- NOTE | 2020-11-14 14:56 | Palliative Care Progress Note ---
Date of Service November 14, 2020 Assessment & Plan (1) Pain: Plan: She has been receiving roxanol prn with no evidence of opioid toxicity. She has had two doses (10 OME in the last 24 hours) Continue prn dosing. (2) Palliative care encounter: Plan: Per her , goal is comfort directed. She has not had any po intake in several days and is likely to within the next several days. (3) Diabetic wet gangrene of the foot: (4) Status post amputation of leg: (5) Cellulitis: (6) Stroke: Admission and Anticipated Discharge Date Admission Date: October 18, 2020 Subjective Awake. Reaching with right arm. Shakes her head when asked if comfortable. Nods when asked if she's having pain. Moans at times. Review of Systems Review of Systems: Other (aphasia) [place] Symptom Assessment Scale PainAD 2/3 Dyspnea by observation 0/3 Palliative Performance Score 20% Physical Exam Constitutional: + ill appearing Respiratory: normal respiratory effort; no labored breathing Gastrointestinal (Abdomen): soft, nontender Musculoskeletal: Extremities: + muscle atrophy Neurologic: left hemiparesis, aphasia PG Care Time/CCT Total # of Minutes Spent Total Time Spent with Patient: Total time spent is greater than 50% in coordination of care (as documented) at patient's floor/unit and/or counseling patient: Coding Level of Care Code 34359 Subseq Hosp Care Lvl 2 Diagnoses Pain R52 Palliative care encounter Z51.5 Diabetic wet gangrene of the foot E11.52 Status post amputation of leg Z89.619 Cellulitis L03.90 Stroke I63.9
--- NOTE | 2020-11-14 18:26 | Billing Data ---
Date of Service November 14, 2020 Coding Level of Care Code 85433 Subseq Hosp Care Lvl 2
--- NOTE | 2020-11-15 09:24 | Palliative Care Progress Note ---
Date of Service November 15, 2020 Assessment & Plan (1) Pain: Plan: She has been receiving roxanol prn with no evidence of opioid toxicity. She has had two doses over the past 24 hours, no Dilaudid PRN. (2) Palliative care encounter: Plan: She has not had any po intake in several days and is likely to within the next few days. She does still have some urine output. She is tachycardic now and in the active dying phase of life. (3) Diabetic wet gangrene of the foot: (4) Status post amputation of leg: (5) Cellulitis: (6) Stroke: Admission and Anticipated Discharge Date Admission Date: October 18, 2020 Subjective Pt opens her eyes to voice stimuli for me. She was unable to communicate or answer questions. She did not appear to be in apparent distress and fell asleep quite quickly Review of Systems Review of Systems: [place] Symptom Assessment Scale PainAD 1/3 Dyspnea by observation 0/3 Palliative Performance Score 20% Physical Exam Constitutional: + ill appearing; no acute distress ENMT: Mouth: + dry oral mucous membranes Respiratory: normal respiratory effort; no labored breathing Cardiovascular: Extremities: no edema Gastrointestinal (Abdomen): Percussion/Palpation: abdomen nontender Musculoskeletal: Extremities: + muscle atrophy Neurologic: awake PG Care Time/CCT Total # of Minutes Spent Total Time Spent with Patient: Total time spent is greater than 50% in coordination of care (as documented) at patient's floor/unit and/or counseling patient: 25 minutes with >50% of that time spent assessing the patient, discussing goals of care, and collaborating with IDT Coding Level of Care Code 74840 Subseq Hosp Care Lvl 2 Diagnoses Pain R52 Palliative care encounter Z51.5 Diabetic wet gangrene of the foot E11.52 Status post amputation of leg Z89.619 Cellulitis L03.90 Stroke I63.9 Time Spent (min) 25
--- NOTE | 2020-11-15 09:29 | Hospitalist Progress Note ---
Date of Service November 15, 2020 Assessment & Plan (1) Diabetic wet gangrene of the foot: Plan: Seema Ramos is a 50yo female with history of DM2, CVA, HTN, HLD who presented with a gangrenous diabetic left foot ulcer on 10/18 who then underwent LLE BKA on 10/25. Required amputation revision on 11/10 due to dehiscence of wound and concern for deep infection. Patient and family made decision to change to comfort measures only - palliative following. Goals of Care - Comfort Measures Only - changed to ELECTRICIAN'S ASSISTANT status on 11/10 - palliative on board - appreciate recs - PRN pain medications/anti-muscarinics on board - patient's pain controlled and she appears comfortable at this time Post-op hypotension - suspect contributory from tvmih-lh-mnnytrn anemia -- resolved Acute blood loss anemia after surgery. Chronic anemia likely multifactorial: anemia of chronic disease (given above-mentioned problems) and iron-deficiency (given low iron and ferritin). - Hgb 6.7 after surgery and patient mildly hypotensive to 80s-90s/50s - improvement today to 110/70s - ELECTRICIAN'S ASSISTANT - no blood transfusions, antibiotics or IV fluids Sepsis secondary to diabetic gangrenous ulcer of L foot, s/p BKA and revision Worsening infection occurred in the setting of uncontrolled DM2, DKA (see below). Ceftriaxone IV initiated on 10/18, LLE BKE performed by Ortho on 10/25, Daptomycin IV started on 10/25 and transitioned to Augmentin on 10/31. - s/p BKA revision on 11/10 - now ELECTRICIAN'S ASSISTANT - no antibiotics or IV fluids T2DM - stopped medications HTN/HLD - stopped medications History of CVA - stopped medications FEN/GI: carb-consistent, minced and moist diet Code Status: DNR/DNI DVT PPX: none (ELECTRICIAN'S ASSISTANT) Dispo: med/surg, patient and family would like for her to stay in the hospital rather than go home (2) Sepsis: (3) Decubitus ulcer of left heel: (4) DKA (diabetic ketoacidosis): (5) Cellulitis: (6) Acute metabolic encephalopathy: Admission and Anticipated Discharge Date Admission Date: October 18, 2020 Supervising Physician Co-Signing Physician Notes I personally examined the patient and verified all polanco points of history and exam, discussed case, and agree with decision making with Dr Bailey notes pain in her leg. very little communication otherwise. mother in law at bedside. answered questions to hte best of my ability. Vitals noted, appearing uncomfortable. HEENT normocephalic atraumatic mucous membranes moist. Breathing unlabored without accessory muscles. Skin without pallor. Comfort measurescontinue inpatient for now, especially since today she seems to be showing more uncontrolled painescalating medications, follow for potential rate of her decline to best determine ongoing inpatient comfort care versus planning towards SNF, would be overwhelmed at home, given that she may start to decline quite quickly, we will continue care in the hospital for now. Subjective No acute events overnight. Patient was eating breakfast this morning (with assistance). Would not speak to me but did acknowledge me with head nod. Does not appear to be in pain or discomfort. Review of Systems Review of Systems: Unobtainable due to cognitive status Physical Exam Physical Exam: General: A&O status unable to be assessed as patient is not answering questions. Dysphoric affect. Appears pale. Cooperative. HEENT: Atraumatic, normocephalic. Pulm: CTAB A&P. -wheezes, -rales, -rhonchi. Symmetrical chest rise. No increase work of breathing. No respiratory distress. Cardiac: RRR, -mrg. Radial pulses intact and symmetrical. Delayed cap refill. Abdominal: soft, non-tender, non-distended, BS x 4 Skin: LLE, s/p BKA revision, with dressing c/d/i Resident Activity Tracking Resident Involvement: Resident Care Provided Care Provided: Adult Hospital Medicine (1) DKA (diabetic ketoacidosis) Diabetes mellitus complication detail: without coma Diabetes mellitus type: other specified (including SALO) Qualified Code(s): E13.10 - Other specified diabetes mellitus with ketoacidosis without coma (2) Sepsis Sepsis acute organ dysfunction status: with acute organ dysfunction Sepsis type: sepsis due to unspecified organism Severe sepsis acute organ dysfunction type: encephalopathy Severe sepsis shock status: without septic shock Qualified Code(s): A41.9 - Sepsis, unspecified organism; R65.20 - Severe sepsis without septic shock; G93.40 - Encephalopathy, unspecified
[2020-11-15] MEDS ORDERED: HYDROmorphone INJ 1 MG/ML SYRINGE IV STA (10:25)
--- NOTE | 2020-11-15 16:47 | Orthopedic Progress Note ---
Date of Service November 15, 2020 Assessment & Plan (1) Status post amputation of leg: -S/p L transfemoral amputation after revision. Dressings appear clean, drain is functioning properly. -Wound does not appear to be causing any degree of discomfort. -Sutures can be removed 2 weeks post-op if wound appears to be healing well. -Rest of care per primary team/Palliative medicine. Remains on comfort measures -Following peripherally. Call with questions Subjective No new events. On AIRLINE MANAGER, Palliative following. Review of Systems All systems reviewed & are unremarkable except as noted in HPI & below. Physical Exam General: Lethargic, non-verbal, raises right arm to voice. LLE: Dressing is clean, dry, intact. Drain still returning blood. No tenderness to palpation around dressing. Results & Data Results & Data Laboratory Results N/A . Diagnostic Findings N/A . PG Care Time/CCT Total # of Minutes Spent Total Time Spent with Patient: Total time spent is greater than 50% in coordination of care (as documented) at patient's floor/unit and/or counseling patient: Coding Level of Care Code 31535 Subseq Hosp Care Lvl 2 Diagnoses Status post amputation of leg Z89.619
--- NOTE | 2020-11-15 19:45 | Billing Data ---
Date of Service November 15, 2020 Coding Level of Care Code 18382 Subseq Hosp Care Lvl 2
[2020-11-16] MEDS: MoRPHine SULFATE 5 MG/0.25 ML UDP PO PRN (00:12)
--- NOTE | 2020-11-16 08:48 | Hospitalist Progress Note ---
Date of Service November 16, 2020 Assessment & Plan (1) Diabetic wet gangrene of the foot: Plan: Seema Ramos is a 50yo female with history of DM2, CVA, HTN, HLD who presented with a gangrenous diabetic left foot ulcer on 10/18 who then underwent LLE BKA on 10/25. Required amputation revision on 11/10 due to dehiscence of wound and concern for deep infection. Patient and family made decision to change to comfort measures only - palliative following. Goals of Care - Comfort Measures Only - changed to DEGREE CLERK status on 11/10 - palliative on board - appreciate recs - PRN pain medications/anti-muscarinics on board - patient's pain controlled and she appears comfortable at this time Post-op hypotension - suspect contributory from [id number] anemia -- resolved Acute blood loss anemia after surgery. Chronic anemia likely multifactorial: anemia of chronic disease (given above-mentioned problems) and iron-deficiency (given low iron and ferritin). - Hgb 6.7 after surgery and patient mildly hypotensive to 80s-90s/50s - improvement today to 110/70s - DEGREE CLERK - no blood transfusions, antibiotics or IV fluids Sepsis secondary to diabetic gangrenous ulcer of L foot, s/p BKA and revision Worsening infection occurred in the setting of uncontrolled DM2, DKA (see below). Ceftriaxone IV initiated on 10/18, LLE BKE performed by Ortho on 10/25, Daptomycin IV started on 10/25 and transitioned to Augmentin on 10/31. - s/p BKA revision on 11/10 - now DEGREE CLERK - no antibiotics or IV fluids T2DM - stopped medications HTN/HLD - stopped medications History of CVA - stopped medications FEN/GI: carb-consistent, minced and moist diet Code Status: DNR/DNI DVT PPX: none (DEGREE CLERK) Dispo: med/surg, patient and family would like for her to stay in the hospital rather than go home, may consider SNF placement depending on rate of decline (2) Sepsis: (3) Decubitus ulcer of left heel: (4) DKA (diabetic ketoacidosis): (5) Cellulitis: (6) Acute metabolic encephalopathy: Admission and Anticipated Discharge Date Admission Date: October 18, 2020 Supervising Physician Co-Signing Physician Notes I personally examined the patient and verified all polanco points of history and exam, discussed case, and agree with decision making with Dr Bailey Less responsive. No HPI review of systems obtainable. No family at the bedside when I see her.. Vitals noted, appearing overall comfortable. HEENT normocephalic atraumatic mucous membranes moist. Breathing unlabored without accessory muscles. Skin without pallor. Comfort measurescontinue inpatient for now,-continue pain medicationswould recommend ongoing inpatient care given that we have had to continue to titrate pain medicines to keep up with uncontrolled pain, as well as the fact that appears she may be starting to move towards more of an active dying process, however, follow for potential rate of her decline to best determine ongoing inpatient comfort care versus planning towards SNF, would be overwhelmed at home, given that she may start to decline quite quickly, we will continue care in the hospital for now. Subjective No acute events overnight. Patient was eating breakfast this morning (with assistance). Would not speak to me but did acknowledge me with head nod. Does not appear to be in pain or discomfort. Review of Systems Review of Systems: Unobtainable due to cognitive status Physical Exam Physical Exam: General: A&O status unable to be assessed as patient is not answering questions. Dysphoric affect. Appears pale. Cooperative. HEENT: Atraumatic, normocephalic. Pulm: CTAB A&P. -wheezes, -rales, -rhonchi. Symmetrical chest rise. No increase work of breathing. No respiratory distress. Cardiac: RRR, -mrg. Radial pulses intact and symmetrical. Delayed cap refill. Abdominal: soft, non-tender, non-distended, BS x 4 Skin: LLE, s/p BKA revision, with dressing c/d/i Results & Data Results & Data ([facility]) Vital Signs (Past 12 Hours) Vital Signs Temp Pulse Resp BP Pulse Ox 11/16/20 07:00 37.0 C 122 H 20 129/83 99 Resident Activity Tracking Resident Involvement: Resident Care Provided Care Provided: Adult Hospital Medicine (1) DKA (diabetic ketoacidosis) Diabetes mellitus complication detail: without coma Diabetes mellitus type: other specified (including SALO) Qualified Code(s): E13.10 - Other specified diabetes mellitus with ketoacidosis without coma (2) Sepsis Sepsis acute organ dysfunction status: with acute organ dysfunction Sepsis type: sepsis due to unspecified organism Severe sepsis acute organ dysfunction type: encephalopathy Severe sepsis shock status: without septic shock Qualified Code(s): A41.9 - Sepsis, unspecified organism; R65.20 - Severe sepsis without septic shock; G93.40 - Encephalopathy, unspecified
[2020-11-16] MEDS ORDERED: HYDROmorphone INJ 1 MG/ML SYRINGE IV PRN (11:55)
[2020-11-16] MEDS ORDERED: oxyCODONE HCL SOLN 5 MG/5 ML UDC PO PRN (12:11)
--- NOTE | 2020-11-16 12:33 | Palliative Care Progress Note ---
Date of Service November 16, 2020 Assessment & Plan (1) Pain: Plan: Per RN, she is tolerating care and position change with no facial grimace or moaning. Given decreased urine output, no po intake, I anticipate that she has some degree of renal failure. Will rotate morphine to oxycodone to avoid opioid toxicity. (2) Palliative care encounter: Plan: I talked with her by phone and updated him. He has been trying to work to keep his mind busy and comes in to see [facility] in the mornings and evenings. We discussed change in medications. I reassured him that she is comfortable. At this time her prognosis appears to be days. (3) Diabetic wet gangrene of the foot: (4) Status post amputation of leg: (5) PVD (peripheral vascular disease): (6) Stroke: Admission and Anticipated Discharge Date Admission Date: October 18, 2020 Subjective Eyes open. Squeezes my hand on command. Does not respond to questions. Review of Systems Review of Systems: Other (aphasia) Ambler symptom Assessement Scale PainAD 0/3 Dyspnea by observation 0/3 Palliative Performance Score 20% Physical Exam Constitutional: comfortable; no acute distress Respiratory: normal respiratory effort; no labored breathing Cardiovascular: Extremities: no edema Gastrointestinal (Abdomen): soft, nontender Musculoskeletal: Extremities: + muscle atrophy Neurologic: left hemiparesis, aphasia Genitourinary: Aguilar catheter Results & Data ([facility]) Vital Signs (Past 12 Hours) Vital Signs Temp Pulse Resp BP Pulse Ox 11/16/20 07:00 98.6 F 122 H 20 129/83 99 PG Care Time/CCT Total # of Minutes Spent Total Time Spent with Patient: Total time spent is greater than 50% in coordination of care (as documented) at patient's floor/unit and/or counseling patient: Coding Level of Care Code 24748 Subseq Hosp Care Lvl 2 Diagnoses Pain R52 Palliative care encounter Z51.5 Diabetic wet gangrene of the foot E11.52 Status post amputation of leg Z89.619 PVD (peripheral vascular disease) I73.9 Stroke I63.9
[2020-11-16] MEDS ORDERED: HYDROmorphone INJ 0.5 MG/0.5 ML SYR IV STA (20:20)
--- NOTE | 2020-11-16 20:39 | Billing Data ---
Date of Service November 16, 2020 Coding Level of Care Code 69015 Subseq Hosp Care Lvl 1
--- NOTE | 2020-11-16 21:27 | Death Pronouncement Note ---
Date of Service November 16, 2020 Pronouncement Note Admission Date Admission Date: October 18, 2020 Contributing Factors (1) Sepsis: (2) Diabetic wet gangrene of the foot: Hospital Course Hospital Course: 50yo female with uncontrolled DM and history of CVA who was admitted 11/10/2020 for altered mental status found to have sepsis, cellulitis, and gangrenous LLE. Patient underwent BKA with subsequent amputation revision for inability to control source of infection. Patient continued to decline despite optimal medical treatment. Per family wishes, patient was made GOLF BALL MOLDER and on 11/16/2020. Summary Additional details: 50yo female with uncontrolled DM and history of CVA who was admitted 11/10/2020 for altered mental status found to have sepsis, cellulitis, and gangrenous LLE. Patient underwent BKA with subsequent amputation revision for inability to control source of infection. Patient continued to decline despite optimal medical treatment. Per family wishes, patient was made GOLF BALL MOLDER and on 11/16/2020. Additional Data Attending physician: James Woods DO Resident Activity Tracking Resident Involvement: Resident Care Provided Care Provided: [facility] Medicine
--- NOTE | 2020-11-16 21:33 | Discharge Summary ---
Date of Service November 16, 2020 Admission HPI Per Admitting Provider 50 y/o F Hx HTN, HLD, IDDM, R MCA CVA. Presents with decreased mentation, nausea, vomiting, heal ulcer and cellulitis on her back. Her ability to communicate is limited at baseline per her who brought her in. He states that the pt normally follows commands and can converse. She is unable to de either on arrival. Labs are consistent with DKA, hypokalemia and she has a WBC count of 48. A CT head was negative for acute findings. Imaging of the heal is consistent with soft tissue infection and concerning for possible gas. Admission Exam Per Admitting Provider General: Uncommunicative, favoring her L side, no evidence of distress. ENT: Would not open mouth for exam Eyes: MADELEINE, EOMI Head and neck: Normocephalic, atraumatic, No JVD Chest/heart: S1,2, RRR, no murmurs, no gallops Lungs: Effort is limited - no overt crackles Abdomen: Nontender, nondistended, BS+ Neuro: Chronic L paresis - per records Musculoskeletal: No joint inflammation, muscle tenderness, FROM Skin: 3-4" ulcer L heel w/purulent discharge - there is cellulitis or folliculitis over the pt's back Extremities: There is poor capillary return on the L. Could not palpate pulses - pulse on R apparent with a Doppler Principal Diagnosis Sepsis Discharge Exam Constitutional: laying in bed, motionless CV: heartbeat absent, peripheral pulses absent Resp: breath sounds absent, no chest rise Skin: cool pale skin Neuro: pupils fixed and dilated, no response to verbal or tactile stimuli Discharge Data Allergies Allergy/AdvReac Type Severity Reaction Status Date / Time No Known Allergies Allergy Verified 10/18/20 18:10 Consultations 11/04/20 10:03 Consult Psychiatry Routine 11/07/20 09:44 Consult Orthopedic Surgery Routine 11/10/20 16:07 Consult Palliative Care Routine Procedures Performed Operation Date: 10/25/20 07:00 Actual Procedures p Left Below Knee Amputation(Left) - Luis A Vieira MD Operation Date: 11/10/20 09:00 Actual Procedures p with Amputation Revision(Left) - Luis A Vieira MD s Left Lower Extremity Incision and Drainage (Left) - Luis A Vieira MD Ordered Studies 10/18/20 14:48 CT abd pelvis IV con only Stat CT head/brain wo con Stat 10/18/20 16:49 US arterial duplex LE LT Urgent 10/19/20 00:08 CT ankle LT wo con Routine 10/25/20 14:46 US - OR guided needle placemen Routine Diabetes Follow up Diabetes Follow-up Needed for HgbA1c >9% Hospital Course (1) Sepsis: 50yo female with uncontrolled DM and history of CVA who was admitted 11/10/2020 for altered mental status found to have sepsis, cellulitis, and gangrenous LLE. Patient underwent BKA with subsequent amputation revision for inability to control source of infection. Patient continued to decline despite optimal medical treatment. 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 Total Time Total Time Spent Total Time Spent (In Minutes): see attending documentation Discharge Plan Discharge Items Patient Disposition: Reason For Visit: DKA Discharge Diagnosis: Left foot gangrenous ulcer s/p LLE BKA on 10/25 Activity: Per Instructions section Non-emergency contact: Primary Care Provider and Surgeon Call non-emergency contact if: you have any medication questions, your symptoms worsen, your pain is not controlled, your temperature is above 101, your wound has increased redness, your wound has increased drainage and your wound pain has increased Follow-up/Referrals: Luis A Vieira MD [Surgeon] - (please schedule f/u in 5-7 days) Paty Buenrostro CRNP [Primary Care Provider] - (please schedule within 1 week) Diet: Carb Consistent or DM2 Addtl Attending Provider Instructions: 50yo female with uncontrolled DM and history of CVA who was admitted 11/10/2020 for altered mental status found to have sepsis, cellulitis, and gangrenous LLE. Patient underwent BKA with subsequent amputation revision for inability to control source of infection. Patient continued to decline despite optimal medical treatment. 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 Stand-Alone Forms: [employer], Smoking Cessation Medications and DC Order Prescriptions: No Action aspirin 81 mg Tablet,Delayed Release (Dr/Ec) 81 mg PO DAILY RF: 0 atorvastatin 40 mg Tablet 40 mg PO DAILY RF: 0 clopidogrel [Plavix] 75 mg Tablet 75 mg PO DAILY RF: 0 insulin aspart U-100 [Novolog Flexpen U-100 Insulin] 100 unit/mL (3 mL) Insulin Pen 0 unit SUBCUT ACHS RF: 0 lisinopril 20 mg Tablet 20 mg PO DAILY RF: 0 metformin 500 mg Tablet 500 mg PO BID RF: 0 metoprolol succinate 50 mg Tablet Extended Release 24 Hr 50 mg PO DAILY RF: 0 pediatric multivitamin Tablet,Chewable 2 tab PO DAILY RF: 0 Toviaz 8 mg Tablet Extended Release 24 Hr 8 mg PO DAILY RF: 0 Lantus Solostar U-100 Insulin 100 unit/mL (3 mL) insulin pen 50 unit SUBCUT HS RF: 0 Admission Data Admit Date/Time: 10/18/20 20:37 Attending Provider: James Woods Admit Provider: Barrie Pennington Primary Care Provider: Paty Buenrostro Other Providers: James Woods ; Colin Velarde ; [facility] ; [facility] ; [place] [place] ; Stephanie Campos ; Dr Teddy ; Ijeoma Butcher ; Alfredo Galeano ; Luis A Vieira ; Snow Kumar ; Getachew Flanagan Resident Activity Tracking Resident Involvement: Resident Care Provided Care Provided: Adult Hospital Medicine
== END 2020-11-16 21:21 | disposition expired | DRG 853 ==
LOC: ED 13:30 → 1E 20:37 → SUATTDRO 20:37 → 1E 21:06 → 2N 10-21 07:47 → 2W 11-09 16:25 → 2S 11-10 14:25 → 3W 11-10 16:59